=== PATIENT | male | born 1965 | race Two or more races ===

== ENCOUNTER 2025-01-18 04:45 | Inpatient (IN) | payer MEDICARE, OTHER ==
[2025-01-18] VITALS (7 sets, daily range): BP systolic 109–114; BP diastolic 78–83; PULSE 97–106; RESP 18–28; TEMP 97.5–98.7; O2SAT 91–96
[~2025-01-18] VITALS: Ht 170.2 cm; Wt 67.5 kg
[~2025-01-18 04:45] MED LIST: ALLO100T; HYDR-1421
[2025-01-18] MEDS: SODIUM CHLORIDE 0.9% 1,000 ML IV ONE ×3 (05:50→09:45)
[2025-01-18] MEDS: ONDANSETRON HCL 4 MG/2 ML VIAL IV ONE ×2 (05:51→06:53)
[2025-01-18] MEDS: MORPHINE SULFATE 4 MG/ML SYR/VIAL IV ONE (05:55)
--- NOTE | 2025-01-18 06:11 | DVH ---
CHEST RADIOGRAPH Indication: weakness Technique: Single frontal view of the chest was obtained COMPARISON: None FINDINGS: Lines and Tubes: None Lungs: Mild diffuse increased prominence of the pulmonary vasculature. No evidence of focal consolida tion. Pleura: No effusion. No pneumothorax. Cardiomediastinal contours: Unremarkable Bones: Unremarkable IMPRESSION: 1. No acute disease. Mild diffuse increased prominence of the pulmonary vasculature.
[2025-01-18 06:16] LABS: Hematocrit 38.4 % (41.0-53.0); Hemoglobin 13.5 g/dL (13.5-17.5); Mean Corpuscular Hemoglobin 30.1 pg (28.0-32.0); Mean Corpuscular Volume 85.5 fL (80.0-100.0); Nucleated Red Blood Cells % 0.0 %
[2025-01-18 06:27] LABS: Anion Gap 16 (5-15); Chloride 100 mmol/L (98-107); Potassium 4.0 mmol/L (3.5-5.1)
[2025-01-18 06:28] LABS: Calcium 8.4 mg/dL (8.7-10.4); Carbon Dioxide 17 mmol/L (20-31); Sodium 133 mmol/L (136-145)
[2025-01-18 06:33] LABS: BUN/Creatinine Ratio 14.5 (10.0-20.0); Blood Urea Nitrogen 50 mg/dL (9-23); Glucose 149 mg/dL (74-106)
[2025-01-18 06:44] LABS: Lactic Acid w/Reflex 2.5 mmol/L (0.4-2.0)
[2025-01-18] MEDS: HYDROmorphone HCL 2 MG/ML VL/or syr IV ONE (06:55)
[2025-01-18] MEDS: cefTRIAXone 1GM/50ML D5W 50 ML IV ONE (07:02)
--- NOTE | 2025-01-18 07:06 | ECG ---
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
--- NOTE | 2025-01-18 07:10 | ED.PDOC ---
History of Present Illness HPI Comments 60-year-old male who is Cymro-speaking, BIBA with prior medical history of gout and the chief complaint of back pain. Patient reports on having back pain for two days wishes has progressive. Patient states that he has not been able to stand a since last night do from the pain. 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 Denies chills, Trauma, fever, N/V/D, SOB, CP. No other associated symptoms, modifiers, recent injuries or sick contacts present at this time. Chief Complaint: Back Pain Time Seen by MD: 06:45 Primary Care Provider: NONE Reviewed Notes: Nurses Notes, Medications, Allergies Allergies: Coded Allergies: NO KNOWN ALLERGIES (Unverified , 07/27/11) Home Meds Reported Medications Hydrocodone-Acetaminophen (Vicodin) 1 Tab Tab 07/27/11 Allopurinol (Allopurinol) 100 Mg Tab 07/27/11 Information Source: Patient, Emergency Med Personnel, Spouse Mode of Arrival: EMS Severity: Moderate Timing: Days Duration: Since onset, Days Prehospital treatment: None Past Medical History PAST MEDICAL HISTORY: Gout Surgical History: Denies all surgeries Family History Family History: Reviewed,noncontributory to illness, Unknown Social History Smoker: Non-Smoker Alcohol: Denies ETOH Use Drugs: Denies Drug Use Lives In: Home Constitutional: denies: chills, diaphoresis, fatigue, fever, malaise, sweats, weakness, others EENTM: denies: blurred vision, double vision, ear bleeding, ear discharge, ear drainage, ear pain, ear ringing, eye pain, eye redness, hearing loss, mouth pain, mouth swelling, nasal discharge, nose bleeding, nose congestion, nose pain, photophobia, tearing, throat pain, throat swelling, voice changes, others Respiratory: denies: cough, hemoptysis, orthopnea, SOB at rest, shortness of breath, SOB with excertion, stridor, wheezing, others Cardiovascular: denies: chest pain, dizzy spells, diaphoresis, Dyspnea on exertion, edema, irregular heart beat, left arm pain, lightheadedness, palpitations, PND, syncope, others Gastrointestinal: denies: abdomen distended, abdominal pain, blood streaked bowels, constipated, diarrhea, dysphagia, difficulty swallowing, hematemesis, melena, nausea, poor appetite, poor fluid intake, rectal bleeding, rectal pain, vomiting, others Genitourinary: denies: burning, dysuria, flank pain, frequency, hematuria, incontinence, penile discharge, penile sore, pain, testicle pain, testicle swelling, urgency, others Neurological: denies: dizziness, fainting, headache, left sided numbness, left sided weakness, numbness, paresthesia, pre-existing deficit, right sided numbness, right sided weakness, seizure, speech problems, tingling, tremors, weakness, others Musculoskeletal: reports: back pain; denies: gout, joint pain, joint swelling, muscle pain, muscle stiffness, neck pain, others Integumetry: denies: bruises, change in color, change in hair/nails, dryness, laceration, lesions, lumps, rash, wounds, others Allergic/Immunocompromised: denies: Difficulty Healing, Frequent Infections, Hives, Itching, others Hematologic/Lymphatic: denies: anemia, blood clots, easy bleeding, easy bruising, swollen glands, others Endocrine: denies: excessive hunger, excessive sweating, excessive thirst, excessive urination, flushing, intolerance to cold, intolerance to heat, unexplained weight gain, unexplained weight loss, others Psychiatric: denies: anxiety, bipolar disorder, depression, hopeless, panic disorder, schizophrenia, sleepless, suicidal, others All Other Systems: Reviewed and Negative Physical Exam General Appearance: Moderate Distress, Normal HEENT: Normal ENT Inspection, Pharynx Normal, TMs Normal Neck: Full Range of Motion, Non-Tender, Normal, Normal Inspection Respiratory: Chest Non-Tender, Lungs Clear, No Accessory Muscle Use, No Respiratory Distress, Normal Breath Sounds Cardiovascular: No Edema, No JVD, No Murmur, No Gallop, Normal Peripheral Pulses, Regular Rate/Rhythm Breast Exam: Deferred Gastrointestinal: No Organomegaly, Non Tender, No Pulsatile Mass, Normal Bowel Sounds, Soft Genitalia: Deferred Pelvic: Deferred Rectal: Deferred Extremities: No calf tenderness, Normal capillary refill, Normal inspection, Normal range of motion, Non-tender, No pedal edema Musculoskeletal : Apperance: Normal Neurologic: Alert, 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 Was a procedure done?: No Differential Dx Considerations may include: Degenerative disc disease Sepsis X-Ray, Labs, Meds, VS Vital Signs Date Time Temp Pulse Resp B/P (MAP) Pulse Ox O2 Delivery O2 Flow Rate FiO2 01/18/25 06:55 97 25 104/74 01/18/25 06:30 101 27 111/66 (81) 95 01/18/25 06:25 100 23 111/66 01/18/25 05:55 100 37 108/54 01/18/25 05:15 100 28 92 Room Air* 0 21 01/18/25 05:10 98.9 100 28 101/64 (76) 92 98.9 01/18/25 04:53 98 01/18/25 04:50 98.8 100 24 120/52 (74) 100 98.8 Lab Test 01/18/25 05:55 Range/Units White Blood Count 6.0 4.4-10.8 10^3/uL Red Blood Count 4.49 L 4.5-5.90 10^6/uL Hemoglobin 13.5 13.5-17.5 g/dL Hematocrit 38.4 L 41.0-53.0 % Mean Corpuscular Volume 85.5 80.0-100.0 fL Mean Corpuscular Hemoglobin 30.1 28.0-32.0 pg Mean Corpuscular Hemoglobin Concent 35.1 32.0-36.0 g/dL Red Cell Distribution Width 14.2 11.8-14.3 % Platelet Count 53 L 140-450 10^3/uL Mean Platelet Volume 8.7 6.9-10.8 fL Neutrophils (%) (Auto) 95.4 H 37.0-80.0 % Lymphocytes (%) (Auto) 2.5 L 10.0-50.0 % Monocytes (%) (Auto) 1.4 0.0-12.0 % Eosinophils (%) (Auto) 0.4 0.0-7.0 % Basophils (%) (Auto) 0.3 0.0-2.0 % Neutrophils # (Auto) 5.7 1.6-8.6 10 ^3/uL Lymphocytes # (Auto) 0.1 L 0.4-5.4 10 ^3/uL Monocytes # (Auto) 0.1 0-1.3 10 ^3/uL Eosinophils # (Auto) 0 0-0.8 10 ^3/uL Basophils # (Auto) 0 0-0.2 10 ^3/uL Nucleated Red Blood Cells 0.0 % Sodium Level 133 L 136-145 mmol/L Potassium Level 4.0 3.5-5.1 mmol/L Chloride Level 100 98-107 mmol/L Carbon Dioxide Level 17 L 20-31 mmol/L Anion Gap 16 H 5-15 Blood Urea Nitrogen 50 H 9-23 mg/dL Creatinine 3.46 H 0.700-1.30 mg/dL Glomerular Filtration Rate Calc 19 >90 mL/min BUN/Creatinine Ratio 14.5 10.0-20.0 Serum Glucose 149 H 74-106 mg/dL Lactic Acid Level 2.5 *H 0.4-2.0 mmol/L Calcium Level 8.4 L 8.7-10.4 mg/dL Troponin I High Sensitivity 26 </=54 ng/L B-Type Natriuretic Peptide 457.18 0-100 pg/mL Current Medications Medications (Trade) Dose Ordered Sig/Natividad Route Start Time Stop Time Status Last Admin Sodium Chloride 1,000 ml @ 1,000 mls/hr Q1H ONCE IV 01/18/25 06:00 01/18/25 06:59 DC 01/18/25 05:50 Morphine Sulfate 4 mg ONCE ONCE IV 01/18/25 06:00 01/18/25 06:01 DC 01/18/25 05:55 Ondansetron HCl (Zofran) 4 mg ONCE ONCE IV 01/18/25 06:00 01/18/25 06:01 DC 01/18/25 05:51 Ondansetron HCl (Zofran) 4 mg ONCE ONCE IV 01/18/25 06:45 01/18/25 06:46 DC 01/18/25 06:53 Hydromorphone HCl (Dilaudid Injection) 1 mg ONCE ONCE IV 01/18/25 06:45 01/18/25 06:46 DC 01/18/25 06:55 Ceftriaxone Sodium 50 ml @ 100 mls/hr ONCE ONCE IV 01/18/25 07:00 01/18/25 07:29 01/18/25 07:02 Sodium Chloride 1,000 ml @ 1,000 mls/hr Q1H ONCE IV 01/18/25 07:00 01/18/25 07:59 01/18/25 07:01 Patient alert. Complaining of back pain. Able to move his extremities. He is obese. BNP elevated. Lactic acid elevated. Kidney function elevated pain Does not take care himself. Possible sepsis. Possible CHF. Establish intravenous access. Was given fluids. Was given Rocephin. Was given Flagyl. Pain control. He is able to control his bowel movement. Explained to the patient. Continue monitoring. Time of 1ST Reevaluation: 07:15 Reevaluation 1ST: Unchanged Patient Education/Counseling: Diagnosis, Treatment, Prognosis Family Education/Counseling: Diagnosis, Treatment, Prognosis SEPSIS Sepsis Screen Date sepsis recognized/suspect: Jan 18, 2025 Time Sepsis recognized/suspect: 514 Recent Procedure: No On Antibiotic Therapy: No Respiratory Rate >20: Yes Heart Rate >90: Yes Temp<36 C (96.8 F) or >38.3 C: No SBP <90 or MAP <65 mmHG: No New Acute Mental Status Change: No Is the patient on CPAP, BIPAP,: No Physician Orders Chest Portable (01/18/25 05:44) Troponin-I Hs (01/18/25 08:44) Electrocardigram (01/18/25 06:44) Electrocardigram (01/18/25 08:44) Blood Culture (01/18/25 06:08) Urinalysis (01/18/25 06:08) Chst Ab Pel Wo Con-No Iv/Oral (01/18/25 06:02) Ceftriaxone 1gm/50ml D5w (Rocephin) (01/18/25 07:00) Metronidazole 500mg/100ml (Flagyl 500mg/ (01/18/25 07:00) Sodium Chloride 0.9% (01/18/25 07:00) Sodium Chloride 0.9% (01/18/25 07:00) Vital Signs Date Time Temp Pulse Resp B/P (MAP) Pulse Ox O2 Delivery O2 Flow Rate FiO2 01/18/25 06:55 97 25 104/74 01/18/25 06:30 101 27 111/66 (81) 95 01/18/25 06:25 100 23 111/66 01/18/25 05:55 100 37 108/54 01/18/25 05:15 100 28 92 Room Air* 0 21 01/18/25 05:10 98.9 100 28 101/64 (76) 92 98.9 01/18/25 04:53 98 01/18/25 04:50 98.8 100 24 120/52 (74) 100 98.8 Laboratory Tests Test 01/18/25 05:55 Lactic Acid Level 2.5 mmol/L (0.4-2.0) *H White Blood Count 6.0 10^3/uL (4.4-10.8) Medications Medications Dose Ordered Sig/Natividad Route Start Time Stop Time Status Last Admin Dose Admin Ceftriaxone Sodium 50 ml @ 100 mls/hr ONCE ONCE IV 01/18/25 07:00 01/18/25 07:29 01/18/25 07:02 Hydromorphone HCl 1 mg ONCE ONCE IV 01/18/25 06:45 01/18/25 06:46 DC 01/18/25 06:55 Morphine Sulfate 4 mg ONCE ONCE IV 01/18/25 06:00 01/18/25 06:01 DC 01/18/25 05:55 Ondansetron HCl 4 mg ONCE ONCE IV 01/18/25 06:00 01/18/25 06:01 DC 01/18/25 05:51 Ondansetron HCl 4 mg ONCE ONCE IV 01/18/25 06:45 01/18/25 06:46 DC 01/18/25 06:53 Sodium Chloride 1,000 ml @ 1,000 mls/hr Q1H ONCE IV 01/18/25 06:00 01/18/25 06:59 DC 01/18/25 05:50 Sodium Chloride 1,000 ml @ 1,000 mls/hr Q1H ONCE IV 01/18/25 07:00 01/18/25 07:59 01/18/25 07:01 Departure 1 Departure Time of Disposition: 07:19 Impression: Primary Impression: Sepsis, unspecified organism Qualified Codes: A41.9 - Sepsis, unspecified organism Additional Impressions: Acute tubular necrosis CHF (congestive heart failure) Qualified Codes: I50.43 - Acute on chronic combined systolic (congestive) and diastolic (congestive) heart failure Disposition: ADMITTED INPATIENT Admit to: Med Surg Condition: Guarded Critical Care Note Critical Care Time?: Yes (90 min-critical care time only) Critical care comment: Continue monitoring Stability Stability form required: No Heart Score Heart Score: Heart Score Response (Comments) Value History Slightly Suspicious 0 EKG Normal 0 Age 45-64 1 Risk Factors 1 or 2 risk factors 1 Troponin Normal limit 0 Total 2 I personally scribed for ALBERTO LEHMAN MD ([email or web address]) on 01/18/25 at 07:10. Electronically submitted by Gerson Correa ([email or web address]). ALBERTO LEHMAN MD Jan 18, 2025 07:10
--- NOTE | 2025-01-18 07:18 | DVH ---
EXAM: CT CHST AB PEL WO CON-NO IV/ORAL HISTORY: chest and abdominal pain COMPARISON: None TECHNIQUE: Helical CT images of the chest, abdomen, and pelvis were performed without IV contrast. Sa gittal and coronal reformatted images were obtained. This CT exam was performed using one or more of the following dose reduction techniques: Automated exposure control, adjustment of the mA and/or kv a ccording to patient size, or the use of iterative reconstruction techniques. Radiation Dose Information: CT Dose: CTDI volume is 17.77 mGy. Dose-length product is 1309.57 mGy*cm FINDINGS: CT chest: There is paraseptal and centrilobular emphysema of the lung apices. There are trace bilater al pleural effusions and mild bilateral lower lobe dependent atelectasis. No pneumothorax, pulmonary edema, pleural effusions, or suspicious lung nodules. The heart is enlarged. There are coronary leif ry calcifications. No thoracic aortic aneurysm. No suspicious mediastinal or axillary adenopathy. The re is an ill-defined right thyroid nodule (image 13, series 2). No fractures are identified about the bony thorax. CT abdomen: The liver is diffusely fatty density and measures 20 cm longitudinal. The spleen measures 12 cm longitudinal. The noncontrast gallbladder, pancreas, kidneys, and adrenal glands are unremarka ble. No abdominal aortic aneurysm. CT pelvis: No abnormal bowel dilatation, free air, or free fluid. There is fecal retention throughout the colon. There are descending and sigmoid colon diverticula without evidence of acute diverticuli tis. The appendix and urinary bladder are unremarkable. The prostate is upper limits of normal in siz e. There are bilateral fatty inguinal indirect hernias, larger on the left. Both hernias extend int o the scrotum. No fractures are identified about the lumbar spine, pelvis, or hips. There is severe l umbar degenerative disc disease and facet arthropathy with multilevel significant neural foraminal st enosis bilaterally. There is mild osteoarthritis of the hips. IMPRESSION: 1. Mild emphysema. 2. Trace bilateral pleural effusions and mild bilateral lower lobe dependent atelectasis. 3. Cardiomegaly and coronary artery disease. 4. Right thyroid nodule. Recommend follow-up outpatient thyroid ultrasound for better characterizati on. 5. Hepatomegaly, hepatic steatosis, and borderline splenomegaly. 6. Fecal retention throughout the colon suggestive of constipation. 7. Descending and sigmoid colon diverticulosis without evidence of acute diverticulitis. 8. Bilateral fatty inguinal indirect hernias extend into the scrotum, larger on the left. 9. Severe lumbar degenerative disc disease and facet arthropathy with multilevel significant neural f oraminal stenosis bilaterally. Recommend follow-up outpatient noncontrast lumbar spine MRI for gallo r characterization, especially if the patient complains of lower extremity radicular symptoms. 10. No evidence of bowel obstruction, acute appendicitis, or other acute process in the abdomen or pe lvis.
[2025-01-18] MEDS: DOCUSATE SOD 100 MG CAP PO ONE (07:50)
[2025-01-18] MEDS: FUROSEMIDE 40 MG/4 ML VIAL IV ONE (07:50)
[2025-01-18 08:17] LABS: Urine Protein, UAD 2+ (Negative)
[2025-01-18] MEDS ORDERED: DOCUSATE SOD 100 MG CAP PO PRN (10:30)
--- NOTE | 2025-01-18 10:53 | DVHHP2 ---
History of Present Illness Reason for Visit: Back pain History of Present Illness Ron Arriaga is a 60-year-old male with past medical history of gout, takes no medications, and has not been to a physician in over 3 years. He came to the hospital today due to severe back pain. Patient states the pain started about 2 days ago, continued to worsen prompting him to come to the hospital. Ct showed: thyroid nodule, hepatic steatosis, fecal retention, diverticulosis, emphysema, trace bilateral pleural effusions, bilateral inguinal hernias, and severe lumbar degenerative disc disease. Will order thyroid panel, thyroid ultrasound, and renal ultrasound due to acute kidney injury. Will advise patient to follow up as an outpatient regarding lumbar DDD, and inguinal hernias. Rheumatologic: Gout Past Surgical History: None Smoke: <1 pack per day ALCOHOL: heavy (6-8 beers/day) Drugs: None Lives: with Family Domestic Violence: Neg Review of Systems Constitutional: No: Fever, Chills, Sweats, Weakness, Malaise, Other Eyes: No: Pain, Vision change, Conjunctivae inflammation, Eyelid inflammation, Other, Redness ENT: No: Ear pain, Ear discharge, Nose pain, Nose discharge, Nose congestion, Mouth pain, Mouth swelling, Throat pain, Throat swelling, Other Respiratory: No: Cough, Dry, Shortness of breath, SOB with excertion, Wheezing, Hemoptysis, Pleuritic Pain, Sputum, Wheezing, Other Cardiovascular: No: Chest Pain, Palpitations, Orthopnea, Paroxysmal Noc. Dy spnea, Edema, Lt Headedness, Other Gastrointestinal: No: Nausea, Vomiting, Abdominal Pain, Diarrhea, Constipation, Melena, Hematochezia, Other Genitourinary: No Dysuria, No Frequency, No Incontinence, No Hematuria, No Retention, No Other Musculoskeletal: back pain (low back); No: other, neck pain, shoulder pain, arm pain, hand pain, leg pain, foot pain Skin: No: Rash, Lesions, Jaundice, Bruising, Other Neurological: No: Weakness, Numbness, Incoordination, Change in speech, Confusion, Seizures, Other Allergies: Coded Allergies: NO KNOWN ALLERGIES (Unverified , 07/27/11) Exam Vital Signs Vital Signs Date Time Temp Pulse Resp B/P (MAP) Pulse Ox O2 Delivery O2 Flow Rate FiO2 01/18/25 08:00 104 18 124/77 01/18/25 07:30 93 Nasal Cannula* 2 28 01/18/25 07:30 98.6 98.6 General Appearance: Alert, Oriented X3, Cooperative, mild distress HEENT: Atraumatic, PERRLA Respiratory: Clear to auscultation, Normal air movement Cardiovascular: Normal S1, Normal S2, Other (ST) Abdominal: Normal bowel sounds, Soft, No tenderness Extremities: No clubbing, No cyanosis Skin: No rashes, No breakdown, No significant lesion Neuro: Normal gait, Normal speech, Strength at 5/5 X4 ext Psych/Mental Status: Mental status NL, Mood NL Labs/Xrays Labs Test 01/18/25 08:36 01/18/25 06:08 01/18/25 05:55 Range/Units Lactic Acid Level 1.7 0.4-2.0 mmol/L Troponin I High Sensitivity 30 </=54 ng/L Urine Color Yellow Yellow Urine Clarity Turbid H Clear Urine pH 6.0 5.0-9.0 Urine Specific [place] 1.017 1.001-1.035 Urine Protein 2+ H Negative Urine Ketones Negative Negative Urine Blood 2+ H Negative /uL Urine Nitrite Negative Negative Urine Bilirubin 1+ Negative Urine Urobilinogen 3 H Negative mg/dL Urine Leukocyte Esterase Negative Negative /uL Urine RBC 3 0 - 3 /hpf Urine Microscopic WBC 4 H 0-3 /HPF Urine Squamous Epithelial Cells None seen <5 /hpf Urine Bacteria None seen None Seen /hpf Urine Sperm Present None Seen /hpf Urine Glucose Normal Normal mg/dL White Blood Count 6.0 4.4-10.8 10^3/uL Red Blood Count 4.49 L 4.5-5.90 10^6/uL Hemoglobin 13.5 13.5-17.5 g/dL Hematocrit 38.4 L 41.0-53.0 % Mean Corpuscular Volume 85.5 80.0-100.0 fL Mean Corpuscular Hemoglobin 30.1 28.0-32.0 pg Mean Corpuscular Hemoglobin Concent 35.1 32.0-36.0 g/dL Red Cell Distribution Width 14.2 11.8-14.3 % Platelet Count 53 L 140-450 10^3/uL Mean Platelet Volume 8.7 6.9-10.8 fL Neutrophils (%) (Auto) 95.4 H 37.0-80.0 % Lymphocytes (%) (Auto) 2.5 L 10.0-50.0 % Monocytes (%) (Auto) 1.4 0.0-12.0 % Eosinophils (%) (Auto) 0.4 0.0-7.0 % Basophils (%) (Auto) 0.3 0.0-2.0 % Neutrophils # (Auto) 5.7 1.6-8.6 10 ^3/uL Lymphocytes # (Auto) 0.1 L 0.4-5.4 10 ^3/uL Monocytes # (Auto) 0.1 0-1.3 10 ^3/uL Eosinophils # (Auto) 0 0-0.8 10 ^3/uL Basophils # (Auto) 0 0-0.2 10 ^3/uL Nucleated Red Blood Cells 0.0 % Sodium Level 133 L 136-145 mmol/L Potassium Level 4.0 3.5-5.1 mmol/L Chloride Level 100 98-107 mmol/L Carbon Dioxide Level 17 L 20-31 mmol/L Anion Gap 16 H 5-15 Blood Urea Nitrogen 50 H 9-23 mg/dL Creatinine 3.46 H 0.700-1.30 mg/dL Glomerular Filtration Rate Calc 19 >90 mL/min BUN/Creatinine Ratio 14.5 10.0-20.0 Serum Glucose 149 H 74-106 mg/dL Calcium Level 8.4 L 8.7-10.4 mg/dL B-Type Natriuretic Peptide 457.18 0-100 pg/mL CHEST RADIOGRAPH FINDINGS: Lines and Tubes: None Lungs: Mild diffuse increased prominence of the pulmonary vasculature. No evidence of focal consolidation. Pleura: No effusion. No pneumothorax. Cardiomediastinal contours: Unremarkable Bones: Unremarkable IMPRESSION: 1. No acute disease. Mild diffuse increased prominence of the pulmonary vasculature. EXAM: CT CHEST AB PEL WO CON-NO IV/ORAL FINDINGS: CT chest: There is paraseptal and centrilobular emphysema of the lung apices. There are trace bilateral pleural effusions and mild bilateral lower lobe dependent atelectasis. No pneumothorax, pulmonary edema, pleural effusions, or suspicious lung nodules. The heart is enlarged. There are coronary artery calcifications. No thoracic aortic aneurysm. No suspicious mediastinal or axillary adenopathy. There is an ill-defined right thyroid nodule (image 13, series 2). No fractures are identified about the bony thorax. CT abdomen: The liver is diffusely fatty density and measures 20 cm longitudinal. The spleen measures 12 cm longitudinal. The noncontrast gallbladder, pancreas, kidneys, and adrenal glands are unremarkable. No abdominal aortic aneurysm. CT pelvis: No abnormal bowel dilatation, free air, or free fluid. There is fecal retention throughout the colon. There are descending and sigmoid colon diverticula without evidence of acute diverticulitis. The appendix and urinary bladder are unremarkable. The prostate is upper limits of normal in size. There are bilateral fatty inguinal indirect hernias, larger on the left. Both hernias extend into the scrotum. No fractures are identified about the lumbar spine, pelvis, or hips. There is severe lumbar degenerative disc disease and facet arthropathy with multilevel significant neural foraminal stenosis bilaterally. There is mild osteoarthritis of the hips. IMPRESSION: 1. Mild emphysema. 2. Trace bilateral pleural effusions and mild bilateral lower lobe dependent atelectasis. 3. Cardiomegaly and coronary artery disease. 4. Right thyroid nodule. Recommend follow-up outpatient thyroid ultrasound for better characterization. 5. Hepatomegaly, hepatic steatosis, and borderline splenomegaly. 6. Fecal retention throughout the colon suggestive of constipation. 7. Descending and sigmoid colon diverticulosis without evidence of acute diverticulitis. 8. Bilateral fatty inguinal indirect hernias extend into the scrotum, larger on the left. 9. Severe lumbar degenerative disc disease and facet arthropathy with multilevel significant neural foraminal stenosis bilaterally. Recommend follow-up outpatient noncontrast lumbar spine MRI for better characterization, especially if the patient complains of lower extremity radicular symptoms. 10. No evidence of bowel obstruction, acute appendicitis, or other acute process in the abdomen or pelvis. SEPSIS Sepsis Screen Date sepsis recognized/suspect: Jan 18, 2025 Time Sepsis recognized/suspect: 729 Recent Procedure: No On Antibiotic Therapy: Yes Respiratory Rate >20: Yes Heart Rate >90: Yes Temp<36 C (96.8 F) or >38.3 C: No SBP <90 or MAP <65 mmHG: No New Acute Mental Status Change: No Is the patient on CPAP, BIPAP,: No IV fluid challenge completed?: Yes Physician Orders Chest Portable (01/18/25 05:44) Electrocardigram (01/18/25 06:44) Electrocardigram (01/18/25 08:44) Blood Culture (01/18/25 06:08) Chst Ab Pel Wo Con-No Iv/Oral (01/18/25 06:02) Sodium Chloride 0.9% (01/18/25 07:00) Insert/Manage Urinary Catheter QSHIFT (01/18/25 07:59) Vital Signs Date Time Temp Pulse Resp B/P (MAP) Pulse Ox O2 Delivery O2 Flow Rate FiO2 01/18/25 08:00 104 18 124/77 01/18/25 07:50 117/81 01/18/25 07:30 101 22 93 Nasal Cannula* 2 28 01/18/25 07:30 98.6 101 22 117/81 (93) 93 98.6 01/18/25 06:55 97 25 104/74 01/18/25 06:30 101 27 111/66 (81) 95 01/18/25 06:25 100 23 111/66 01/18/25 05:55 100 37 108/54 01/18/25 05:15 100 28 92 Room Air* 0 21 01/18/25 05:10 98.9 100 28 101/64 (76) 92 98.9 01/18/25 04:53 98 01/18/25 04:50 98.8 100 24 120/52 (74) 100 98.8 Laboratory Tests Test 01/18/25 05:55 01/18/25 08:36 Lactic Acid Level 2.5 mmol/L (0.4-2.0) *H 1.7 mmol/L (0.4-2.0) White Blood Count 6.0 10^3/uL (4.4-10.8) Medications Medications Dose Ordered Sig/Natividad Route Start Time Stop Time Status Last Admin Dose Admin Ceftriaxone Sodium 50 ml @ 100 mls/hr ONCE ONCE IV 01/18/25 07:00 01/18/25 07:29 DC 01/18/25 07:02 100 MLS/HR Docusate Sodium 100 mg ONCE ONCE PO 01/18/25 07:45 01/18/25 07:46 DC 01/18/25 07:50 100 MG Furosemide 40 mg ONCE ONCE IV 01/18/25 07:30 01/18/25 07:31 DC 01/18/25 07:50 40 MG Hydromorphone HCl 1 mg ONCE ONCE IV 01/18/25 06:45 01/18/25 06:46 DC 01/18/25 06:55 1 MG Metronidazole 100 ml @ 100 mls/hr ONCE ONCE IV 01/18/25 07:00 01/18/25 07:59 DC 01/18/25 07:50 100 MLS/HR Morphine Sulfate 4 mg ONCE ONCE IV 01/18/25 06:00 01/18/25 06:01 VA 01/18/25 05:55 4 MG Ondansetron HCl 4 mg ONCE ONCE IV 01/18/25 06:00 01/18/25 06:01 VA 01/18/25 05:51 4 MG Ondansetron HCl 4 mg ONCE ONCE IV 01/18/25 06:45 01/18/25 06:46 VA 01/18/25 06:53 4 MG Sodium Chloride 1,000 ml @ 1,000 mls/hr Q1H ONCE IV 01/18/25 06:00 01/18/25 06:59 DC 01/18/25 05:50 1,000 MLS/HR Sodium Chloride 1,000 ml @ 1,000 mls/hr Q1H ONCE IV 01/18/25 07:00 01/18/25 07:59 DC 01/18/25 07:01 1,000 MLS/HR Assessment/Plan Assessment/Plan Assessment: Sepsis, unspecified organism, Complicated UTI, Possible urosepsis, Possible Pyelonephritis, Acute kidney injury, Thyroid nodule, ETOH dependance, Constipation, Severe DDD, Plan: Admit to Med-Surg, IV hydration, IV antibiotics, Thyroid ultrasound, Renal ultrasound, Consider nephrology consult if renal function does not improve, TSH, T3, T4, A1c, Librium tapering dose, Supplemental vitamins, PRN Ativan for ETOH withdrawal, Plan discussed with: Patient Date of Service: Jan 18, 2025 Billing Provider: VICKIE ARAUJO Common Visit Codes: [id number] INP/OBS CARE (MOD) VICKIE ARAUJO Jan 18, 2025 10:53
[2025-01-18] MEDS ORDERED: LACTULOSE 20Gm/30ML SOLN PO PRN (11:00)
--- NOTE | 2025-01-18 12:22 | DVH ---
INDICATION: Acute kidney injury TECHNIQUE: Multiple real-time sonographic images of the kidneys and bladder were obtained. COMPARISON: None FINDINGS: RIGHT kidney measures 10.3 cm in length. No hydronephrosis. LEFT kidney measures 10.5 cm in length. No hydronephrosis. Bates catheter in the urinary bladder. IMPRESSION: 1. Unremarkable examination.
--- NOTE | 2025-01-18 12:29 | DVH ---
EXAM: US THYROID HISTORY: nodule 60-year-old male with right thyroid nodule seen on CT scan of the chest. COMPARISON: CT scan of the chest from earlier same day. TECHNIQUE: Ultrasound examination of the thyroid was performed. FINDINGS: The right lobe of the thyroid measures 4.9 x 2.2 x 2.7 cm. The left lobe of the thyroid measures 4.2 x 1.6 x 1.3 cm. The thyroid isthmus measures 5.1 mm AP. There is a heterogeneous isoechoic solid n odule in the right mid thyroid with smooth margins, wider than tall on all images, measuring up to 3. 2 cm greatest dimension. No nodules are identified in the left lobe of the thyroid. No suspicious c alcifications or abnormal color Doppler blood flow. IMPRESSION: Right thyroid 3.2 cm solid nodule is a TI-RADS 3 lesion, mildly suspicious. As this measures greater than 2.5 cm, patient ultrasound-guided FNA is recommended. Similar to thyroid ultrasound examination s in general, thyroid FNA should be performed on an outpatient nonemergent basis and should not be pe rformed on an inpatient basis.
[2025-01-18] MEDS: FOLIC ACID 1 MG TAB PO ONE (13:47)
[2025-01-18] MEDS: MULTIPLE VITAMIN TAB PO ONE (13:47)
[2025-01-18] MEDS: THIAMINE HCL 100 MG TAB PO ONE (13:47)
[2025-01-18] MEDS: HYDROcodone-ACET 5/325MG TAB PO PRN (13:48)
[2025-01-18 14:28] LABS: Free T3 2.53 pg/mL (2.3-4.2); Free T4 (Free Thyroxine) 1.17 ng/dL (0.89-1.76)
[2025-01-18] MEDS: ONDANSETRON HCL 4 MG/2 ML VIAL IV PRN (15:44)
[2025-01-18] MEDS: MORPHINE SULFATE INJ 2 MG/ml SYRG IV PRN (15:45)
[2025-01-18] MEDS: LORazepam 2MG/ML-1ML VIAL IV PRN (20:15)
[2025-01-19] VITALS (68 sets, daily range): BP systolic 71–154; BP diastolic 21–98; PULSE 90–156; RESP 10–38; TEMP 98.5–100.8; O2SAT 87–100
[2025-01-19 06:44] LABS: Hemoglobin 14.8 g/dL (13.5-17.5)
[2025-01-19 06:48] LABS: Hematocrit 43.2 % (41.0-53.0); Mean Corpuscular Hemoglobin 30.2 pg (28.0-32.0); Mean Corpuscular Volume 88.0 fL (80.0-100.0); Nucleated Red Blood Cells % 0.3 %
[2025-01-19 06:58] LABS: Anion Gap 16 (5-15); BUN/Creatinine Ratio 13.5 (10.0-20.0); Calcium 8.8 mg/dL (8.7-10.4); Potassium 4.7 mmol/L (3.5-5.1)
[2025-01-19 06:59] LABS: Alanine Aminotransferase 96 U/L (7-40); Alkaline Phosphatase 255 U/L (46-116); Blood Urea Nitrogen 65 mg/dL (9-23); Carbon Dioxide 19 mmol/L (20-31); Chloride 98 mmol/L (98-107); Glucose 156 mg/dL (74-106); Sodium 133 mmol/L (136-145); Total Protein 6.9 g/dL (5.7-8.2)
[2025-01-19 07:00] LABS: Albumin 4.3 g/dL (3.2-4.8)
[2025-01-19 07:01] LABS: Bilirubin, Total 2.3 mg/dL (0.2-1.0)
[2025-01-19] MEDS: FUROSEMIDE 40 MG/4 ML VIAL ONE (08:02)
--- NOTE | 2025-01-19 08:15 | CODING ---
Date of Service: Jan 19, 2025 Billing Provider: KALLI ARREGUIN Common Visit Codes: [id number] INP/OBS CARE (HIGH) KALLI ARREGUIN Jan 19, 2025 08:15
[2025-01-19 08:17] LABS: Base Excess -9.3 mmol/L (-2.0-3.0)
[2025-01-19] MEDS: FUROSEMIDE 40 MG/4 ML VIAL IV ONE (08:22)
--- NOTE | 2025-01-19 08:23 | DVH ---
CHEST RADIOGRAPH Indication: desaturation Technique: Single frontal view of the chest was obtained COMPARISON: XY CHEST PORTABLE on DOS: 01/18/25 FINDINGS: Lines and Tubes: None Lungs: Increased interstitial prominence Pleura: No effusion. No pneumothorax. Cardiomediastinal contours: Cardiomegaly Bones: Unremarkable IMPRESSION: Pulmonary vascular congestion or viral pneumonia, not significantly changed.
[2025-01-19] MEDS: IPRATROPIUM BROM 0.5 MG/2.5ML INH SOL NEB ONE (08:27)
[2025-01-19] MEDS: LEVALBUTEROL HCL 1.25 MG/3 ML NEB ONE (08:28)
[2025-01-19] MEDS: ALBUTEROL SULF 2.5 MG/0.5ML(0.5%) NEB SOLN ONE (08:29)
[2025-01-19] MEDS: IPRATROPIUM BROM 0.5 MG/2.5ML INH SOL ONE (08:29)
[2025-01-19 08:43] LABS: Hematocrit 41.0 % (41.0-53.0); Hemoglobin 14.0 g/dL (13.5-17.5); Mean Corpuscular Hemoglobin 29.7 pg (28.0-32.0); Mean Corpuscular Volume 86.9 fL (80.0-100.0); Nucleated Red Blood Cells % 0.2 %
[2025-01-19] MEDS: CEFEPIME 1GM/ 50ML 50 ML IV SCH (09:08)
[2025-01-19] MEDS: FOLIC ACID 1 MG TAB PO SCH (09:08)
[2025-01-19] MEDS: THIAMINE HCL 100 MG TAB PO SCH (09:09)
[2025-01-19] MEDS: MULTIPLE VITAMIN TAB PO SCH (09:09)
[2025-01-19 09:17] LABS: Alanine Aminotransferase 88 U/L (7-40); Albumin 3.7 g/dL (3.2-4.8); Alkaline Phosphatase 253 U/L (46-116); Anion Gap 19 (5-15); BUN/Creatinine Ratio 14.8 (10.0-20.0); Blood Urea Nitrogen 78 mg/dL (9-23); Carbon Dioxide 18 mmol/L (20-31); Chloride 101 mmol/L (98-107); Glucose 144 mg/dL (74-106); Potassium 4.1 mmol/L (3.5-5.1); Sodium 138 mmol/L (136-145); Total Protein 5.7 g/dL (5.7-8.2)
[2025-01-19 09:18] LABS: Bilirubin, Total 2.5 mg/dL (0.2-1.0); Calcium 8.0 mg/dL (8.7-10.4)
[2025-01-19] MEDS: AMIODARONE BOLUS KIT 100 ML IV ONE ×2 (09:45→09:50)
[2025-01-19] MEDS: HYDROMORPHONE HCL 1 MG/ML INJ ONE (09:47)
[2025-01-19] MEDS: AMIODARONE 360mg/200mL PREMIX 200 ML IV ONE ×2 (09:50→10:00)
[2025-01-19] MEDS ORDERED: FUROSEMIDE 40 MG/4 ML VIAL IV ONE (10:00)
[2025-01-19 10:04] LABS: Base Excess -9.3 mmol/L (-2.0-3.0)
[2025-01-19] MEDS: NOREPINEPHRINE 8 MG/250ML KIT 250 ML IV SCH (10:14)
[2025-01-19] MEDS: NOREPINEPHRINE 8 MG/250ML KIT 250 ML IV ONE ×2 (10:14→15:39)
--- NOTE | 2025-01-19 10:20 | DVH ---
Technique: Real-time ultrasound imaging of the abdomen was performed with grayscale and color Doppler . Indication: elevated liver enzymes Comparison: None Findings: Liver measures 20 cm. It is increased in echogenicity and echotexture without focal mass. Portal vei n is normal in caliber and demonstrates normal hepatopetal flow. Gallbladder demonstrates no evidence for cholelithiasis. There is no pericholecystic fluid. The wall thickness is normal. The common bile duct measures 6 mm. No intrahepatic biliary ductal dilatation. Impression: Technically limited examination due to patient cooperation. No identifiable cholelithiasis. Echogenic liver which can be seen with hepatic steatosis, cirrhosis. Hepatomegaly
[2025-01-19] MEDS: fentaNYL Drip 2500mCg/250mlNS 250 ML IV ONE (10:22)
[2025-01-19] MEDS: ETOMIDATE (2MG/ML) 20ML VIAL IV ONE ×2 (10:22→10:27)
[2025-01-19] MEDS: MIDAZOLAM DRIP 50 mg/50mL 50 ML IV ONE (10:22)
[2025-01-19] MEDS: SUCCINYLCHOLINE CHLORIDE 20 MG/ML 10ML VIAL IV ONE ×2 (10:23→10:28)
[2025-01-19] MEDS: MIDAZOLAM DRIP 50 mg/50mL 50 ML IV SCH (10:35)
[2025-01-19] MEDS: fentaNYL Drip 2500mCg/250mlNS 250 ML IV SCH (10:35)
[2025-01-19] MEDS: PROPOFOL 100 ML IV ONE (10:42)
[2025-01-19] MEDS: PROPOFOL 100 ML IV SCH (10:42)
--- NOTE | 2025-01-19 11:02 | RESUS ---
CODE ASSIST ASSESSSMENT Initial Information Code Assist Date: Jan 19, 2025 Code Assist Time: 09:30 Location of Arrest: [facility] Room # 216B Provider Name Dr Chadwick, multiple medical residents Time Notified: 09:30 (at bedside) Crash Cart Opened and Supplies: Yes Situation Staff concerned/worried, speci: HR >130, Change LOC, SBP <90 or 10 from baseli Situation comment: Second code assist this am, first one at [address] Boswell for ALOC. Orders received for lasix 40mg IV once after audible crackles heard/auscultated, cxr, abg, ekg and labs and upgraded to tele during first code assist with VS 93-94% spo2, bp initially wnl with hr 120's sinus tach per reading on ekg. Second code assist called at 0930 for hr 170's. Background Background: Admitted 01/18/25 to med surg floor for sepsis, see EMR for history. Assessment Temperature (Fahrenheit): 99.0 Bedside Blood Glucose: 156 Assessment comment: Awakens to voice cannot hold gaze, diaphoretic, hr 170's. bp 95/78 initially, increased work of breathing Recommendations/Interventions Medications and Responses : Medication Time: 09:38 ADULT Medications Given: adenosine Route of Administration: IV Medication Comment: Adenosine 6mg IV at 0938 after placing defib pads on patient and hooked to crash cart bp 91/50 with hr 172 and spo2 93%. Adenosine 12 mg IV given at 0940 for hr 170's again with bp 89/62. Amiodarone IV bolus with drip ordered and bolus started then Adenosine 12 mg IV was ordered again and given at 0954 with bp 105/88. Post bp 121/98 with hr still in 170's. EKG Rhythm: Atrial Fibrillation, SVT Procedures: Accu check, ABG, CXR Portable, CMP, CBC, EKG, Cardiac Monitoring, Inititate ACLS Protocol, O2 Mask/NC, Cardioversion (x1 at 120joules for hr 172 AT 0941) Outcome Outcome: Transfer to ICU (bed 111) Follow up Report Follow up Report cardioverted again and intubated in icu per icu report Team Members Team Members Dr Chadwick, Multiple residents, Trenton Bergman RNtour production supervisor, Lazaro irving RN, Shira Sunshine RN ICU Charge, Edi SALCEDO MST Resource, Sera Lyman RN ICU Resource, Salvatore RT, Mason retail event assistant student. Ternton Gutiérrez Jan 19, 2025 11:02 PINA CHADWICK MD Jan 19, 2025 14:33
--- NOTE | 2025-01-19 11:09 | DVH ---
EXAM: XY CHEST XRAY 1 VIEW HISTORY: intubation COMPARISON: XY CHEST XRAY 1 VIEW on DOS: 01/19/25, XY CHEST PORTABLE on DOS: 01/18/25 TECHNIQUE: Portable supine AP view of the chest was performed. FINDINGS: The right lung apex is not fully imaged here. There has been interval placement of an endotracheal tu be with its tip 2.2 cm above the vin. There is central interstitial prominence. No pneumothorax or consolidative infiltrates. The heart is enlarged. There is abundant overlying adipose tissue. IMPRESSION: 1. Endotracheal tube in good position. 2. Cardiomegaly and central interstitial prominence suggestive of mild CHF. 3. Obesity.
[2025-01-19] MEDS ORDERED: ADENOSINE 6 MG/2 ML INJ IV ONE (11:56)
[2025-01-19] MEDS ORDERED: IPRATROPIUM BROM 0.5 MG/2.5ML INH SOL NEB SCH (12:00)
[2025-01-19] MEDS ORDERED: LEVALBUTEROL HCL 1.25 MG/3 ML NEB NEB SCH (12:00)
[2025-01-19] MEDS: LEVALBUTEROL HCL 1.25 MG/3 ML NEB NEB ONE (12:00)
[2025-01-19] MEDS: MEROPENEM 500MG IVPB 50 ML IV ONE (13:00)
[2025-01-19] MEDS ORDERED: VANCOMYCIN PER PHARMACY 0 MG IV SCH (13:00)
--- NOTE | 2025-01-19 13:12 | DVHINCON2 ---
Date of service: Jan 19, 2025 Reason for Consultation Acute kidney injury History of Present Illness 60-year-old male unable to obtain history as patient was in distress. Per family at bedside patient has not had medical follow-up in several years. Presents to the hospital complaining of weakness inability to ambulate and swelling in his legs. Family also reports that he has a history of daily alcohol intake including multiple beers per day. Upon evaluation on presentation in the ER patient was noted to have abnormal creatinine level. Upon my evaluation today patient was noted to have a heart rate of 150 and appeared to be in respiratory distress. Rapid response was called and patient has been transferred to the ICU now subsequently intubated. Allergies: Coded Allergies: NO KNOWN ALLERGIES (Unverified , 07/27/11) Home Meds Reported Medications Hydrocodone-Acetaminophen (Vicodin) 1 Tab Tab 07/27/11 Allopurinol (Allopurinol) 100 Mg Tab 07/27/11 Current Medications Current Medications Medications (Trade) Dose Ordered Sig/Natividad Route PRN Reason Start Time Stop Time Status Last Admin Folic Acid 1 mg DAILY PO 01/19/25 10:00 01/19/25 09:08 Multivitamins (Mvi Tab) 1 tab DAILY PO 01/19/25 10:00 Thiamine HCl 100 mg DAILY PO 01/19/25 10:00 Chlordiazepoxide HCl (Librium Capsule) 50 mg Q12HR PO 01/19/25 10:00 01/19/25 22:01 Chlordiazepoxide HCl (Librium Capsule) 25 mg Q12HR PO 01/20/25 10:00 01/20/25 22:01 Chlordiazepoxide HCl (Librium Capsule) 25 mg QAM PO 01/21/25 07:00 01/21/25 07:01 Cefepime HCl 50 ml @ 12.5 mls/hr DAILY IV 01/19/25 10:00 01/19/25 09:08 Levalbuterol HCl (Xopenex Medneb) 1.25 mg Q6HR NEB 01/19/25 12:00 01/19/25 08:20 DC Ipratropium [place] (Atrovent Medneb) 0.5 mg Q6HR NEB 01/19/25 12:00 01/19/25 08:20 DC Propofol 100 ml @ 3.015 mls/ hr Q24H IV 01/19/25 11:15 Midazolam HCl 50 ml @ 1 mls/hr Q24H IV 01/19/25 11:15 Fentanyl Citrate 250 ml @ 2.5 mls/hr Q24H IV 01/19/25 11:15 Family History: FH: HTN (hypertension) G8 MOTHER G8 FATHER FH: cancer of digestive organ G8 MOTHER FH: kidney disease G8 FATHER Review of Systems Critical illness intubated H&P Exam Vital Signs/I&O Vital Sign Date Time Temp Pulse Resp B/P (MAP) Pulse Ox O2 Delivery O2 Flow Rate FiO2 01/19/25 12:07 112 22 85/60 (68) 96 100 01/19/25 10:00 Nasal Cannula* 6 01/19/25 05:20 99.0 99.0 Intake and Output 01/18/25 01/19/25 19:00 07:00 Intake Total 800 ml 100 ml Output Total 1500 ml Balance 800 ml -1400 ml Intake Oral 800 ml 100 ml Output Urine Total 1500 ml Physical Exam Elderly male Appeared in respiratory distress Mrs. Severe tachycardia Abdomen large distended Bilateral pitting edema Crackles bilateral bases Bates catheter Labs/Diagnostic Data Labs/Diagnostic Data Laboratory Tests Test 01/19/25 09:53 01/19/25 08:10 01/19/25 08:05 01/19/25 08:00 Range/Units Blood Gas Specimen Type Arterial Arterial Blood Gas Sample Site Right radial Right radial Blood Gas Patient Temperature 37.0 37.0 Arterial Blood Date Drawn [id number] Arterial Blood pH 7.312 L 7.352 7.350-7.450 Arterial Blood Partial Pressure CO2 31.5 L 26.7 L 35.0-48.0 mmHg Arterial Blood Partial Pressure O2 88.3 79.1 L 83.0-108.0 mmHg Arterial Blood HCO3 15.6 L 14.5 L 21.0-28.0 mmol/L Arterial Blood Oxygen Saturation 95.2 94.4 94.0-98.0 % Arterial Blood Base Excess -9.3 L -9.3 L -2.0-3.0 mmol/L Arterial Blood Oxyhemoglobin 94.0 92.9 L 94.0-98.0 % Arterial Blood Carboxyhemoglobin 0.8 1.1 0.5-1.5 % Arterial Blood Methemoglobin 0.5 0.5 0.0-1.5 % Eligio Test Yes Yes Blood Gas Total Hemoglobin 14.70 14.60 13.5-17.5 g/dL Blood Gas Liter Flow 12.00 Blood Gas Modality Oxymizer Nasal cannula Blood Gas Spontaneous Rate 20 FiO2 % 82.0 44.0 White Blood Count 6.4 4.4-10.8 10^3/uL Red Blood Count 4.72 4.5-5.90 10^6/uL Hemoglobin 14.0 13.5-17.5 g/dL Hematocrit 41.0 41.0-53.0 % Mean Corpuscular Volume 86.9 80.0-100.0 fL Mean Corpuscular Hemoglobin 29.7 28.0-32.0 pg Mean Corpuscular Hemoglobin Concent 34.2 32.0-36.0 g/dL Red Cell Distribution Width 15.2 H 11.8-14.3 % Platelet Count 30 L 140-450 10^3/uL Mean Platelet Volume 9.6 6.9-10.8 fL Neutrophils (%) (Auto) 91.7 H 37.0-80.0 % Lymphocytes (%) (Auto) 1.9 L 10.0-50.0 % Monocytes (%) (Auto) 2.2 0.0-12.0 % Eosinophils (%) (Auto) 4.0 0.0-7.0 % Basophils (%) (Auto) 0.2 0.0-2.0 % Neutrophils # (Auto) 5.9 1.6-8.6 10 ^3/uL Lymphocytes # (Auto) 0.1 L 0.4-5.4 10 ^3/uL Monocytes # (Auto) 0.1 0-1.3 10 ^3/uL Eosinophils # (Auto) 0.3 0-0.8 10 ^3/uL Basophils # (Auto) 0 0-0.2 10 ^3/uL Nucleated Red Blood Cells 0.2 % Platelet Estimate Decreased Sodium Level 138 # 136-145 mmol/L Potassium Level 4.1 3.5-5.1 mmol/L Chloride Level 101 98-107 mmol/L Carbon Dioxide Level 18 L 20-31 mmol/L Anion Gap 19 H 5-15 Blood Urea Nitrogen 78 #H 9-23 mg/dL Creatinine 5.26 H 0.700-1.30 mg/dL Glomerular Filtration Rate Calc 12 >90 mL/min BUN/Creatinine Ratio 14.8 10.0-20.0 Serum Glucose 144 H 74-106 mg/dL Calcium Level 8.0 L 8.7-10.4 mg/dL Total Bilirubin 2.5 H 0.2-1.0 mg/dL Aspartate Amino Transferase (AST) 69 H 13-40 U/L Alanine Aminotransferase (ALT) 88 H 7-40 U/L Alkaline Phosphatase 253 H 46-116 U/L Ammonia < 10 L 11-32 umol/L Total Protein 5.7 5.7-8.2 g/dL Albumin 3.7 3.2-4.8 g/dL POC Glucose 156 H 70-106 mg/dl Test 01/19/25 05:12 01/18/25 08:36 01/18/25 06:08 01/18/25 05:55 Range/Units White Blood Count 5.6 6.0 4.4-10.8 10^3/uL Red Blood Count 4.91 4.49 L 4.5-5.90 10^6/uL Hemoglobin 14.8 13.5 13.5-17.5 g/dL Hematocrit 43.2 # 38.4 L 41.0-53.0 % Mean Corpuscular Volume 88.0 85.5 80.0-100.0 fL Mean Corpuscular Hemoglobin 30.2 30.1 28.0-32.0 pg Mean Corpuscular Hemoglobin Concent 34.3 35.1 32.0-36.0 g/dL Red Cell Distribution Width 15.3 H 14.2 11.8-14.3 % Platelet Count 36 L 53 L 140-450 10^3/uL Mean Platelet Volume 9.7 8.7 6.9-10.8 fL Neutrophils (%) (Auto) 89.4 H 95.4 H 37.0-80.0 % Lymphocytes (%) (Auto) 4.7 L 2.5 L 10.0-50.0 % Monocytes (%) (Auto) 1.4 1.4 0.0-12.0 % Eosinophils (%) (Auto) 4.3 0.4 0.0-7.0 % Basophils (%) (Auto) 0.2 0.3 0.0-2.0 % Neutrophils # (Auto) 5.0 5.7 1.6-8.6 10 ^3/uL Lymphocytes # (Auto) 0.3 L 0.1 L 0.4-5.4 10 ^3/uL Monocytes # (Auto) 0.1 0.1 0-1.3 10 ^3/uL Eosinophils # (Auto) 0.2 0 0-0.8 10 ^3/uL Basophils # (Auto) 0 0 0-0.2 10 ^3/uL Nucleated Red Blood Cells 0.3 0.0 % Platelet Estimate Decreased Large Platelets Few Sodium Level 133 L 133 L 136-145 mmol/L Potassium Level 4.7 4.0 3.5-5.1 mmol/L Chloride Level 98 100 98-107 mmol/L Carbon Dioxide Level 19 L 17 L 20-31 mmol/L Anion Gap 16 H 16 H 5-15 Blood Urea Nitrogen 65 #H 50 H 9-23 mg/dL Creatinine 4.82 H 3.46 H 0.700-1.30 mg/dL Glomerular Filtration Rate Calc 13 19 >90 mL/min BUN/Creatinine Ratio 13.5 14.5 10.0-20.0 Serum Glucose 156 H 149 H 74-106 mg/dL Calcium Level 8.8 8.4 L 8.7-10.4 mg/dL Total Bilirubin 2.3 H 0.2-1.0 mg/dL Aspartate Amino Transferase (AST) 80 H 13-40 U/L Alanine Aminotransferase (ALT) 96 H 7-40 U/L Alkaline Phosphatase 255 H 46-116 U/L Total Protein 6.9 5.7-8.2 g/dL Albumin 4.3 3.2-4.8 g/dL Lactic Acid Level 1.7 2.5 *H 0.4-2.0 mmol/L Troponin I High Sensitivity 30 26 </=54 ng/L Urine Color Yellow Yellow Urine Clarity Turbid H Clear Urine pH 6.0 5.0-9.0 Urine Specific [place] 1.017 1.001-1.035 Urine Protein 2+ H Negative Urine Ketones Negative Negative Urine Blood 2+ H Negative /uL Urine Nitrite Negative Negative Urine Bilirubin 1+ Negative Urine Urobilinogen 3 H Negative mg/dL Urine Leukocyte Esterase Negative Negative /uL Urine RBC 3 0 - 3 /hpf Urine Microscopic WBC 4 H 0-3 /HPF Urine Squamous Epithelial Cells None seen <5 /hpf Urine Bacteria None seen None Seen /hpf Urine Sperm Present None Seen /hpf Urine Glucose Normal Normal mg/dL Hemoglobin A1c 6.5 H <5.7 % A1C B-Type Natriuretic Peptide 457.18 0-100 pg/mL Thyroid Stimulating Hormone (TSH) 1.78 0.55-4.78 uIU/mL Free Thyroxine (T4) Calculated 1.17 0.89-1.76 ng/dL Free Triiodothyronine (T3) pg/mL 2.53 2.3-4.2 pg/mL Assessment 60-year-old male poor medical care presents to the hospital with weakness and inability to ambulate has a history of chronic excessive alcohol use. Patient was intubated on the medical floor due to cardiopulmonary distress. Nephrology is consulted due to elevated creatinine level. 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 Bilateral inguinal hernias extending into the scrotum Severe lumbar disc disease Congestive heart failure Thrombocytopenia Agree with stabilization Intubation Pressors to maintain mean arterial pressure greater than 65 Patient's plan for platelet transfusion Given hypervolemic exam recommend diuretic therapy to increase and promote minimum 500-1 L net negative daily Accurate Is&Os record review of Bates Echocardiogram Cardiology consultation Replace electrolytes and sodium bicarbonate IV push to achieve balanced pH CT scan listed below, in the context family reports patient has been unable to ambulate recommend evaluation CT scan - Severe lumbar degenerative disc disease and facet arthropathy with multilevel significant neural foraminal stenosis bilaterally. Patient is critically ill has multiple medical conditions, we will recommend aggressive medical therapy initially however if patient fails then we will re commend dialysis renal replacement therapy. Critical care time spent 40 minutes Plan discussed with: Spouse JOSEPH HAM MD Jan 19, 2025 13:12
[2025-01-19] MEDS ORDERED: DEXTROSE (50%) 50ML SYRG IV PRN (13:15)
--- NOTE | 2025-01-19 13:24 | DVHPN2 ---
Assessment/Plan Assessment/Plan ICU note 60 yo M with gout admitted for back pain. This morning patient found to have elevated HR to 180s rapid response was called, patient was altered and BP was low. initial attempt done to give adenosine with no reduction in HR, patient received sync cardioversion with reversion to sinus tach that was only sustained for 1 minute which reverted back to SVT and started on amio drip. BP improved and patient was somewhat alert, given adenosine 12mg to attempt to re revert, which sustained less than a minute and now patient is in Afib with RVR. Patient was transferred to ICU, sustaining RVR, and more altered, decision made to intubate. Patient also has oral and nasal bleeding. After intubation patient persist to have low BP, started on peripheral pressor and placed TLC and a line. Discussion with renal initially patient was planned for possible dialysis if no improvement with IV diuretics. Patient however exhibit hypovolemic shock on POCUS and with the oral and nasal bleeding, possible alcohol use and cirrhosis, was started on rapid transfusion. Later he grows GNR in the blood. Empiric coverage with IV abx started. Physical exam intubated, sedated on mechanical ventilation obese equal pupil, minimal movement blood in oral and nasal surface mechanical breath sounds distant heart sound abdomen distended no LE edema prominent abdominal and varicose veins on LE vent 400 100% 18 peep 5 Drips levo amio vaso prop fent versed Lines LIJ TLC R rad el ETT young Labs EKG imaging reviewed Assessment and plan acute metabolic / toxic encephalopathy acute hypoxic RF req mechanical ventilation septic vs hemorrhagic shock possible acute on chronic diastolic HF possible cirrhosis JOSE ATN on CKD? GNR bacteremia severe thrombocytopenia with active bleeding SVT now new onset afib with RVR possible alcohol withdrawal alcohol use c/w mech ventilation possibly need to be bronched, consult pulm c/w pressors maintain MAP >65 rapid transfusion c/w sedation maintain RAAS 04 renal consult possible HD if BP allows empiric vanc and tiffanie c/w amio high dose thiamine and folate transfuse if HB <7 as bleeding currently stopped, will hold on octreotide and protonix drip diet NPO dvt ppx hold thrombocytopenia gi ppx protonix condition critical prognosis poor Plan discussed with: Other My Orders Orders - PINA FOX MD Procedure Category Date Status Time Abg W/ Co-Ox RT 01/19/25 Logged 09:53 Ventilator Orders RT 01/19/25 Transmitted 10:47 Abg W/ Co-Ox RT 01/19/25 Logged 11:40 Respiratory Culture TERE 01/19/25 In Process W/ Gs 10:47 Packedcells -Active BBK 01/19/25 In Process Bleeding 11:57 Pheresis Platelets BBK 01/19/25 In Process 11:57 Frozen Plasma BBK 01/19/25 In Process 11:57 Type And Screen BBK 01/19/25 Logged 11:57 Chest Portable XY 01/19/25 Taken 12:02 Comprehensive LAB 01/19/25 Logged Metabolic Panel 13:06 Complete Blood Count LAB 01/19/25 Logged 13:06 PTPTT LAB 01/20/25 Verified 04:00 Lactic Acid W/ Reflex LAB 01/19/25 Logged Order 13:06 Date of Service: Jan 19, 2025 Billing Provider: PINA FOX MD Common Visit Codes: [id number] CARE 30-74 MIN, [id number] CARE-EACH +30MIN PINA FOX MD Jan 19, 2025 13:24
--- NOTE | 2025-01-19 13:26 | DVHNC2 ---
Cardioversion Vagal maneuver: Were attempted Attempts: x2 Resulted Rhythm: SVT Direct Supervision: Yes Date of Service: Jan 19, 2025 Billing Provider: PINA FOX MD Common Visit Codes: PROCEDURE ONLY ([id number]) PINA FOX MD Jan 19, 2025 13:26
--- NOTE | 2025-01-19 13:27 | DVHNC2 ---
Arterial Puncture Indication: Assess ventilatory status, Assess acid-base status Location: Right Radial (a line, meghan test done normal, ) Informed consent obtained: Yes Date of Service: Jan 19, 2025 Billing Provider: PINA FOX MD Common Visit Codes: PROCEDURE ONLY Procedure Codes: [id number] PINA FOX MD Jan 19, 2025 13:27
[2025-01-19] MEDS: VANCOMYCIN 1GM/200ML PM 250 ML IV SCH (13:38)
--- NOTE | 2025-01-19 13:44 | DVH ---
CHEST RADIOGRAPH Indication: post central line place Technique: XY CHEST PORTABLE COMPARISON: None FINDINGS: Endotracheal tube tip projects 2.2 cm above the vin. Left IJ catheter tip projects over the SVC. The cardiac silhouette is enlarged. The lungs demonstrate bilateral patchy airspace opacities. The pu lmonary vasculature is prominent. Small left pleural effusion. There is no pneumothorax. IMPRESSION: As above
[2025-01-19 13:48] LABS: Base Excess -14.2 mmol/L (-2.0-3.0)
[2025-01-19 13:52] LABS: Hemoglobin 14.8 g/dL (13.5-17.5); Nucleated Red Blood Cells % 0.4 %
[2025-01-19 13:55] LABS: Hematocrit 43.8 % (41.0-53.0); Mean Corpuscular Hemoglobin 29.9 pg (28.0-32.0); Mean Corpuscular Volume 88.7 fL (80.0-100.0)
[2025-01-19 14:07] LABS: Albumin 3.9 g/dL (3.2-4.8); Anion Gap 16 (5-15); BUN/Creatinine Ratio 12.7 (10.0-20.0); Chloride 100 mmol/L (98-107); Total Protein 6.3 g/dL (5.7-8.2)
[2025-01-19 14:08] LABS: Alanine Aminotransferase 77 U/L (7-40); Alkaline Phosphatase 266 U/L (46-116); Bilirubin, Total 2.4 mg/dL (0.2-1.0); Blood Urea Nitrogen 72 mg/dL (9-23); Calcium 8.3 mg/dL (8.7-10.4); Carbon Dioxide 19 mmol/L (20-31); Glucose 201 mg/dL (74-106); Potassium 5.3 mmol/L (3.5-5.1); Sodium 135 mmol/L (136-145)
[2025-01-19] MEDS: PANTOPRAZOLE 40 MG/10 ML VIAL INJ IV ONE (15:26)
[2025-01-19] MEDS: VASOPRESSIN 20 UNITS in SODIUM CHL 0.9% 99 ML IV SCH (15:27)
[2025-01-19] MEDS: AMIODARONE 360mg/200mL PREMIX 200 ML IV SCH (15:34)
[2025-01-19 15:53] LABS: Base Excess -15.0 mmol/L (-2.0-3.0)
[2025-01-19] MEDS: ACCU-CHEK COMFORT CURVE STRIP VI SCH (16:00)
--- NOTE | 2025-01-19 16:20 | DVHINCON2 ---
Date Seen: Jan 19, 2025 Referring Physician MD Farrukh Reason for Consultation AFib RVR History of Present Illness This is a 60-year-old male patient who presents to emergency room with chief complaint of back pain. At the time of assessment, the patient is chemically sedated and mechanically ventilated. History obtained from bedside RN and patient's spouse at bedside. Cardiology has been consulted at this time for atrial fibrillation with rapid ventricular response. The patient was a code assist on the telemetry floor earlier this morning when the bedside RN noticed that the patient was altered. Subsequently, a 2nd code assist was called with the patient's nurse noted that the patient's heart rate was reaching as high as 170s. A review of the plastics factory worker at that time confirms that the patient went into atrial fibrillation with rapid ventricular response. According to code assist documentation, the patient was given adenosine 6 mg followed by adenosine 12 mg IV push. The patient was noted to become hypotensive. An amiodarone bolus was initiated followed by the amiodarone drip protocol. Finally, another adenosine dose of 12 mg IV was given with heart rate still sustaining in the 170s. The patient was then given direct current cardioversion. At the time of assessment, the patient is now in sinus tachycardia. Significant past medical history includes gout, tobacco use, alcohol abuse, and morbid obesity. The patient's spouse admits that the patient does not regularly see a primary care physician. Past Medical History Past medical history reviewed. No other significant than mentioned above. Past Surgical History Denies Family History: FH: HTN (hypertension) G8 MOTHER G8 FATHER FH: cancer of digestive organ G8 MOTHER FH: kidney disease G8 FATHER Family History Family history reviewed. Social History Patient has a 70 pack-year history, smokes approximately two packs of cigarettes per day Patient drinks approximately 60 beers per day Patient's spouse states that the patient used to do methamphetamine, last time around 2000 Allergies: Coded Allergies: NO KNOWN ALLERGIES (Unverified , 07/27/11) Home Meds Reported Medications Hydrocodone-Acetaminophen (Vicodin) 1 Tab Tab 07/27/11 Allopurinol (Allopurinol) 100 Mg Tab 07/27/11 Home Meds Home medications reviewed. Current Medications Current Medications Medications (Trade) Dose Ordered Sig/Natividad Route PRN Reason Start Time Stop Time Status Last Admin Folic Acid 1 mg DAILY PO 01/19/25 10:00 01/19/25 13:29 DC 01/19/25 09:08 Multivitamins (Mvi Tab) 1 tab DAILY PO 01/19/25 10:00 01/19/25 13:29 DC Thiamine HCl 100 mg DAILY PO 01/19/25 10:00 01/19/25 13:29 DC Chlordiazepoxide HCl (Librium Capsule) 50 mg Q12HR PO 01/19/25 10:00 01/19/25 13:29 DC Chlordiazepoxide HCl (Librium Capsule) 25 mg Q12HR PO 01/20/25 10:00 01/19/25 13:29 DC Chlordiazepoxide HCl (Librium Capsule) 25 mg QAM PO 01/21/25 07:00 01/19/25 13:29 DC Cefepime HCl 50 ml @ 12.5 mls/hr DAILY IV 01/19/25 10:00 01/19/25 13:29 DC 01/19/25 09:08 Levalbuterol HCl (Xopenex Medneb) 1.25 mg Q6HR NEB 01/19/25 12:00 01/19/25 08:20 DC Ipratropium [place] (Atrovent Medneb) 0.5 mg Q6HR NEB 01/19/25 12:00 01/19/25 08:20 DC Propofol 100 ml @ 3.015 mls/ hr Q24H IV 01/19/25 11:15 Midazolam HCl 50 ml @ 1 mls/hr Q24H IV 01/19/25 11:15 01/19/25 13:12 Fentanyl Citrate 250 ml @ 2.5 mls/hr Q24H IV 01/19/25 11:15 Vancomycin HCl 0 ml @ 0 mls/hr UD IV 01/19/25 13:00 Meropenem 50 ml @ 17 mls/hr Q12HR IV 01/19/25 22:00 Pantoprazole Sodium (Protonix) 40 mg BID IV 01/19/25 22:00 Vasopressin 20 units/Sodium Chloride 100 ml @ 9 mls/hr Q11H7M IV 01/19/25 13:00 01/19/25 15:27 Vancomycin HCl 250 ml @ 250 mls/hr Q1H IV 01/19/25 13:15 01/19/25 15:14 DC 01/19/25 15:41 Furosemide (Lasix Injection) 60 mg BIDD IV 01/19/25 18:00 Thiamine HCl 100 mg DAILY IV 01/20/25 10:00 Folic Acid 1 mg/ Dextrose 50.2 ml @ 200.8 mls/ hr DAILY INJ 01/20/25 10:00 Polyethylene Glycol (Miralax 17GM Powder) 17 gm DAILY PO 01/20/25 10:00 Diagnostic Test (Pha) (Accu-Chek Comfort Curve T) 1 strip IQ4HR 01/19/25 16:00 Dextrose 50 ml UD PRN IV Blood Sugar LESS THAN 60 01/19/25 13:15 Insulin Human Lispro (HumaLOG) Q4HR SC 01/19/25 14:00 Furosemide (Lasix Injection) 120 mg BIDD IV 01/19/25 18:00 01/19/25 14:38 DC Review of Systems Constitutional: No symptom reported Ears, Nose, & Throat: No symptom reported Eyes: No symptom reported Neurological: No symptoms reported Pulmonary/Respiratory: No symptoms reported Cardiovascular: No symptom reported Gastrointestinal: No symptom reported Genitourinary: No symptom reported Musculoskeletal: Back pain Skin: No symptom reported Psychiatric: No symptom reported Endocrine: No symptom reported Hematologic/Lymphatic: No symptom reported Vital Signs Vital Signs Date Time Temp Pulse Resp B/P (MAP) Pulse Ox O2 Delivery O2 Flow Rate FiO2 01/19/25 16:03 109 28 106/63 (77) 95 70 01/19/25 10:00 Nasal Cannula* 6 01/19/25 05:20 99.0 99.0 Physical Exam General Appearance: Calm, relaxed. Morbidly obese Pulmonary/Respiratory: Clear, bilateral breaths sounds. Mechanically ventilated Cardiovascular/Chest: Regular rate and rhythm. Peripheral Pulses: 2+ Radial (R). 2+ Radial (L). 2+ Pedal (R). 2+ Pedal (L) Abdominal Exam: Normal bowel sounds. Ankle Exam: Negative ankle edema Lower extremities: Negative lower extremity edema Neuro/Mental Status: Chemically sedated Thoughts/Psych: Deferred Appearance: No acute distress. Skin Exam: Normal inspection. Normal color. Warm and dry. Labs/Diagnostic Data Labs Test 01/19/25 15:46 01/19/25 15:20 01/19/25 13:14 01/19/25 09:53 Range/Units Blood Gas Specimen Type Arterial Blood Gas Sample Site Arterial line Blood Gas Patient Temperature 37.0 Arterial Blood Date Drawn [id number] Arterial Blood pH 7.035 *L 7.350-7.450 Arterial Blood Partial Pressure CO2 62.8 *H 35.0-48.0 mmHg Arterial Blood Partial Pressure O2 89.5 83.0-108.0 mmHg Arterial Blood HCO3 16.4 L 21.0-28.0 mmol/L Arterial Blood Oxygen Saturation 93.4 L 94.0-98.0 % Arterial Blood Base Excess -15.0 L -2.0-3.0 mmol/L Arterial Blood Oxyhemoglobin 92.4 L 94.0-98.0 % Arterial Blood Carboxyhemoglobin 0.8 0.5-1.5 % Arterial Blood Methemoglobin 0.3 0.0-1.5 % Eligio Test N/a Blood Gas Total Hemoglobin 14.60 13.5-17.5 g/dL Blood Gas Set Respiration Rate 24.0 Blood Gas Modality Vent - ac FiO2 % 80.0 Blood Gas Tidal Volume 420.0 Blood Gas PEEP or CPAP 5.0 Blood Gas Critical Value Read Back Yes Blood Gas Notified Whom Aaron bueno md Blood Gas Notified Time [id number] Blood Gas Notified By Pyrotechnic Assembler kiera florentino POC Glucose 193 H 70-106 mg/dl White Blood Count 11.3 #H 4.4-10.8 10^3/uL Red Blood Count 4.94 4.5-5.90 10^6/uL Hemoglobin 14.8 13.5-17.5 g/dL Hematocrit 43.8 41.0-53.0 % Mean Corpuscular Volume 88.7 80.0-100.0 fL Mean Corpuscular Hemoglobin 29.9 28.0-32.0 pg Mean Corpuscular Hemoglobin Concent 33.7 32.0-36.0 g/dL Red Cell Distribution Width 15.9 H 11.8-14.3 % Platelet Count 31 L 140-450 10^3/uL Mean Platelet Volume 10.7 6.9-10.8 fL Neutrophils (%) (Auto) 88.6 H 37.0-80.0 % Lymphocytes (%) (Auto) 3.5 L 10.0-50.0 % Monocytes (%) (Auto) 3.4 0.0-12.0 % Eosinophils (%) (Auto) 4.1 0.0-7.0 % Basophils (%) (Auto) 0.4 0.0-2.0 % Neutrophils # (Auto) 10.0 H 1.6-8.6 10 ^3/uL Lymphocytes # (Auto) 0.4 0.4-5.4 10 ^3/uL Monocytes # (Auto) 0.4 0-1.3 10 ^3/uL Eosinophils # (Auto) 0.5 0-0.8 10 ^3/uL Basophils # (Auto) 0 0-0.2 10 ^3/uL Nucleated Red Blood Cells 0.4 % Sodium Level 135 L 136-145 mmol/L Potassium Level 5.3 H 3.5-5.1 mmol/L Chloride Level 100 98-107 mmol/L Carbon Dioxide Level 19 L 20-31 mmol/L Anion Gap 16 H 5-15 Blood Urea Nitrogen 72 H 9-23 mg/dL Creatinine 5.68 H 0.700-1.30 mg/dL Glomerular Filtration Rate Calc 11 >90 mL/min BUN/Creatinine Ratio 12.7 10.0-20.0 Serum Glucose 201 H 74-106 mg/dL Lactic Acid Level 1.9 0.4-2.0 mmol/L Calcium Level 8.3 L 8.7-10.4 mg/dL Total Bilirubin 2.4 H 0.2-1.0 mg/dL Aspartate Amino Transferase (AST) 70 H 13-40 U/L Alanine Aminotransferase (ALT) 77 H 7-40 U/L Alkaline Phosphatase 266 H 46-116 U/L Total Protein 6.3 5.7-8.2 g/dL Albumin 3.9 3.2-4.8 g/dL Blood Gas Liter Flow 12.00 Blood Gas Spontaneous Rate 20 Test 01/19/25 08:10 01/19/25 05:12 01/18/25 08:36 01/18/25 06:08 Range/Units Platelet Estimate Decreased Ammonia < 10 L 11-32 umol/L Large Platelets Few Troponin I High Sensitivity 30 </=54 ng/L Urine Color Yellow Yellow Urine Clarity Turbid H Clear Urine pH 6.0 5.0-9.0 Urine Specific [place] 1.017 1.001-1.035 Urine Protein 2+ H Negative Urine Ketones Negative Negative Urine Blood 2+ H Negative /uL Urine Nitrite Negative Negative Urine Bilirubin 1+ Negative Urine Urobilinogen 3 H Negative mg/dL Urine Leukocyte Esterase Negative Negative /uL Urine RBC 3 0 - 3 /hpf Urine Microscopic WBC 4 H 0-3 /HPF Urine Squamous Epithelial Cells None seen <5 /hpf Urine Bacteria None seen None Seen /hpf Urine Sperm Present None Seen /hpf Urine Glucose Normal Normal mg/dL Test 01/18/25 05:55 Range/Units Hemoglobin A1c 6.5 H <5.7 % A1C B-Type Natriuretic Peptide 457.18 0-100 pg/mL Thyroid Stimulating Hormone (TSH) 1.78 0.55-4.78 uIU/mL Free Thyroxine (T4) Calculated 1.17 0.89-1.76 ng/dL Free Triiodothyronine (T3) pg/mL 2.53 2.3-4.2 pg/mL Microbiology Date/Time Source Procedure Growth Status 01/18/25 06:30 Blood Blood Culture - Preliminary Resulted 01/18/25 06:08 Voided Urine Urine Culture - Preliminary Resulted Assessment Atrial fibrillation with rapid ventricular response status post direct current cardioversion, now sinus tachycardia Acute hypoxic respiratory failure Rule out structural heart disease Septic versus hemorrhagic shock Severe thrombocytopenia Type 2 diabetes mellitus, newly diagnosed Alcohol use disorder Transaminitis Acute kidney injury Liver cirrhosis Tobacco use History of methamphetamine use Morbid obesity Medical noncompliance Plan/Recommendation We will continue with the following plan/recommendations (Dr. Sloan): * Transthoracic echocardiogram to evaluate cardiac function * Continue vasopressor therapy for hemodynamic support * ?[id number] VASc score: 1 point, HAS-BLED score: 3 points * Hold off anticoagulation given severe thrombocytopenia. Initiate SCDs * Unable to initiate beta-diane given vasopressor therapy * Amiodarone drip, closely monitor LFTs * Monitor and replete electrolytes as needed * Closely monitor hemoglobin and hematocrit, transfuse as needed * Close Cardiac surveillance Thank you for allowing us to care for this patient. Please call with any questions or concerns. Critical care time spent: 44 minutes This medical document was created using an electronic medical record system with voice recognition software and computerized dictation system. Although this document has been carefully reviewed, there might still be some phonetic and typographical errors. Occasional wrong-word or ``sound-alike substitutions may have occurred due to the inherent limitations of voice recognition software. These areas are purely typographical due to imperfections of the software programs and do not reflect any compromise in the patient's medical care. Please read the chart carefully and recognize, using context, where these substitutions have occurred. Plan discussed with: Patient NYHA Physical activity limitations: NA Date of Service: Jan 19, 2025 Billing Provider: JOHN PEARCE Cardiology Common Codes: 55016-VKBOGVD INP/OBS CARE (High) Cardiology Consultation Codes: [id number] CONSULT <45MIN JOHN PEARCE Jan 19, 2025 16:20
[2025-01-19] MEDS: FUROSEMIDE 100 MG/10ML VIAL IV ONE (16:32)
[2025-01-19] MEDS: INSULIN LISPRO (HUMAN) 100 UNITS/ML ML SC SCH (16:34)
--- NOTE | 2025-01-19 17:00 | DVH ---
CHEST RADIOGRAPH Indication: og tube placement Technique: Single frontal view of the chest was obtained Comparison: XY CHEST PORTABLE on DOS: 01/19/25, XY CHEST XRAY 1 VIEW on DOS: 01/19/25, XY CHEST XRAY 1 VIEW on DOS: 01/19/25 FINDINGS: Lines and Tubes: OG tube below the left diaphragm in the stomach. It has been advanced. Lungs: No focal consolidation. Pleura: No effusion. No pneumothorax. Cardiomediastinal contours: Unremarkable Bones: No acute osseous abnormality. IMPRESSION: 1. OG tube in good position below the left diaphragm in the stomach.
[2025-01-19] MEDS ORDERED: FUROSEMIDE 100 MG/10ML VIAL IV SCH (18:00)
[2025-01-19 18:25] LABS: Base Excess -14.5 mmol/L (-2.0-3.0)
[2025-01-19] MEDS: FUROSEMIDE 100 MG/10ML VIAL IV SCH (18:42)
[2025-01-19] MEDS: SODIUM BICARB 8.4% 50Meq/50ml SYR Vial IV ONE (20:00)
[2025-01-19] MEDS: SODIUM BICARB 8.4% 50Meq/50ml SYR INJ ONE (20:00)
[2025-01-19 21:18] LABS: Base Excess -11.2 mmol/L (-2.0-3.0)
[2025-01-19] MEDS: ACETAMINOPHEN 325 MG TAB PO PRN (21:59)
[2025-01-19] MEDS: MEROPENEM 500MG IVPB 50 ML IV SCH (22:00)
[2025-01-19] MEDS: PANTOPRAZOLE 40 MG/10 ML VIAL INJ IV SCH (22:00)
[2025-01-19] MEDS: SODIUM BICARB 50mEq/50ml Vial 100 ML in SOD CHL 0.45% 1,000 ML IV SCH (22:01)
--- NOTE | 2025-01-19 22:20 | DVHINCON2 ---
Date of service: Jan 19, 2025 Referring Physician Farrukh Reason for Consultation ETOH liver disease possible UGI bleed History of Present Illness Ron Arriaga is a 60-year-old male with past medical history of gout, takes no medications, and has not been to a physician in over 3 years. He came to the hospital today due to severe back pain. Patient states the pain started about 2 days ago, continued to worsen prompting him to come to the hospital. Ct showed: thyroid nodule, hepatic steatosis, fecal retention, diverticulosis, emphysema, trace bilateral pleural effusions, bilateral inguinal hernias, and severe lumbar degenerative disc disease. Patient had acute renal insufficiency and was evaluated by guide This morning the patient went developed severe tachycardia hypotension and SVT requiring cardioversion attempts and code assist. Patient is finally intubated and transferred to the ICU. When the patient was being intubated there was moderate amount of blood coming up from his mouth and GI was consulted for possible upper GI bleed. Patient also has a history of chronic alcoholism drinking 6-8 beers per day and there was concern for underlying chronic liver disease Past Medical History Gout ETOH abuse Past Surgical History None Family History: FH: HTN (hypertension) G8 MOTHER G8 FATHER FH: cancer of digestive organ G8 MOTHER FH: kidney disease G8 FATHER Allergies: Coded Allergies: NO KNOWN ALLERGIES (Unverified , 07/27/11) Home Meds Reported Medications Hydrocodone-Acetaminophen (Vicodin) 1 Tab Tab 07/27/11 Allopurinol (Allopurinol) 100 Mg Tab 07/27/11 Current Medications Current Medications Medications (Trade) Dose Ordered Sig/Natividad Route PRN Reason Start Time Stop Time Status Last Admin Folic Acid 1 mg DAILY PO 01/19/25 10:00 01/19/25 13:29 DC 01/19/25 09:08 Multivitamins (Mvi Tab) 1 tab DAILY PO 01/19/25 10:00 01/19/25 13:29 DC Thiamine HCl 100 mg DAILY PO 01/19/25 10:00 01/19/25 13:29 DC Chlordiazepoxide HCl (Librium Capsule) 50 mg Q12HR PO 01/19/25 10:00 01/19/25 13:29 DC Chlordiazepoxide HCl (Librium Capsule) 25 mg Q12HR PO 01/20/25 10:00 01/19/25 13:29 DC Chlordiazepoxide HCl (Librium Capsule) 25 mg QAM PO 01/21/25 07:00 01/19/25 13:29 DC Cefepime HCl 50 ml @ 12.5 mls/hr DAILY IV 01/19/25 10:00 01/19/25 13:29 DC 01/19/25 09:08 Levalbuterol HCl (Xopenex Medneb) 1.25 mg Q6HR NEB 01/19/25 12:00 01/19/25 08:20 DC Ipratropium [place] (Atrovent Medneb) 0.5 mg Q6HR NEB 01/19/25 12:00 01/19/25 08:20 DC Propofol 100 ml @ 3.015 mls/ hr Q24H IV 01/19/25 11:15 01/19/25 10:42 Midazolam HCl 50 ml @ 1 mls/hr Q24H IV 01/19/25 11:15 01/19/25 10:35 Fentanyl Citrate 250 ml @ 2.5 mls/hr Q24H IV 01/19/25 11:15 01/19/25 10:35 Vancomycin HCl 0 ml @ 0 mls/hr UD IV 01/19/25 13:00 Meropenem 50 ml @ 17 mls/hr Q12HR IV 01/19/25 22:00 Pantoprazole Sodium (Protonix) 40 mg BID IV 01/19/25 22:00 Vasopressin 20 units/Sodium Chloride 100 ml @ 9 mls/hr Q11H7M IV 01/19/25 13:00 01/19/25 15:27 Vancomycin HCl 250 ml @ 250 mls/hr Q1H IV 01/19/25 13:15 01/19/25 15:14 DC 01/19/25 15:41 Furosemide (Lasix Injection) 60 mg BIDD IV 01/19/25 18:00 01/19/25 18:42 Thiamine HCl 100 mg DAILY IV 01/20/25 10:00 Folic Acid 1 mg/ Dextrose 50.2 ml @ 200.8 mls/ hr DAILY INJ 01/20/25 10:00 Polyethylene Glycol (Miralax 17GM Powder) 17 gm DAILY PO 01/20/25 10:00 Diagnostic Test (Pha) (Accu-Chek Comfort Curve T) 1 strip IQ4HR 01/19/25 16:00 01/19/25 20:11 Dextrose 50 ml UD PRN IV Blood Sugar LESS THAN 60 01/19/25 13:15 Insulin Human Lispro (HumaLOG) Q4HR SC 01/19/25 14:00 01/19/25 19:04 Furosemide (Lasix Injection) 120 mg BIDD IV 01/19/25 18:00 01/19/25 14:38 DC Hydrocortisone Sodium Succinate (Solu-CORTEF INJECTION) 50 mg Q6HR IV 01/20/25 00:00 Norepinephrine Bitartrate 250 ml @ 3.75 mls/hr Q24H IV 01/19/25 20:15 01/19/25 10:14 Sodium Bicarbonate 100 ml/Sodium Chloride 1,100 ml @ 85 mls/hr [id number] IV 01/19/25 21:30 Vital Signs Vital Signs Date Time Temp Pulse Resp B/P (MAP) Pulse Ox O2 Delivery O2 Flow Rate FiO2 01/19/25 21:15 100.6 92 28 114/60 (78) 100 213.1 94/55 (68) 01/19/25 19:56 70 01/19/25 10:00 Nasal Cannula* 6 Physical Exam Elderly male intubated sedated, morbidly obese Abdomen large distended Bilateral pitting edema Crackles bilateral bases Bates catheter Labs/Diagnostic Data Labs Test 01/19/25 21:08 01/19/25 20:09 01/19/25 13:14 01/19/25 09:53 Range/Units Blood Gas Specimen Type Arterial Blood Gas Sample Site Arterial line Blood Gas Patient Temperature 37.0 Arterial Blood Date Drawn [id number] Arterial Blood pH 7.187 *L 7.350-7.450 Arterial Blood Partial Pressure CO2 45.2 35.0-48.0 mmHg Arterial Blood Partial Pressure O2 127.7 H 83.0-108.0 mmHg Arterial Blood HCO3 16.8 L 21.0-28.0 mmol/L Arterial Blood Oxygen Saturation 97.9 94.0-98.0 % Arterial Blood Base Excess -11.2 L -2.0-3.0 mmol/L Arterial Blood Oxyhemoglobin 97.5 94.0-98.0 % Arterial Blood Carboxyhemoglobin 0.3 L 0.5-1.5 % Arterial Blood Methemoglobin 0.1 0.0-1.5 % Eligio Test N/a Blood Gas Total Hemoglobin 13.40 L 13.5-17.5 g/dL Blood Gas Set Respiration Rate 28.0 Blood Gas Modality Vent - ac FiO2 % 70.0 Blood Gas Tidal Volume 500.0 Blood Gas PEEP or CPAP 5.0 Blood Gas Critical Value Read Back Yes Blood Gas Notified Whom thomas Li np Blood Gas Notified Time [id number] Blood Gas Notified By thomas Wu rrt POC Glucose 143 H 70-106 mg/dl White Blood Count 11.3 #H 4.4-10.8 10^3/uL Red Blood Count 4.94 4.5-5.90 10^6/uL Hemoglobin 14.8 13.5-17.5 g/dL Hematocrit 43.8 41.0-53.0 % Mean Corpuscular Volume 88.7 80.0-100.0 fL Mean Corpuscular Hemoglobin 29.9 28.0-32.0 pg Mean Corpuscular Hemoglobin Concent 33.7 32.0-36.0 g/dL Red Cell Distribution Width 15.9 H 11.8-14.3 % Platelet Count 31 L 140-450 10^3/uL Mean Platelet Volume 10.7 6.9-10.8 fL Neutrophils (%) (Auto) 88.6 H 37.0-80.0 % Lymphocytes (%) (Auto) 3.5 L 10.0-50.0 % Monocytes (%) (Auto) 3.4 0.0-12.0 % Eosinophils (%) (Auto) 4.1 0.0-7.0 % Basophils (%) (Auto) 0.4 0.0-2.0 % Neutrophils # (Auto) 10.0 H 1.6-8.6 10 ^3/uL Lymphocytes # (Auto) 0.4 0.4-5.4 10 ^3/uL Monocytes # (Auto) 0.4 0-1.3 10 ^3/uL Eosinophils # (Auto) 0.5 0-0.8 10 ^3/uL Basophils # (Auto) 0 0-0.2 10 ^3/uL Nucleated Red Blood Cells 0.4 % Sodium Level 135 L 136-145 mmol/L Potassium Level 5.3 H 3.5-5.1 mmol/L Chloride Level 100 98-107 mmol/L Carbon Dioxide Level 19 L 20-31 mmol/L Anion Gap 16 H 5-15 Blood Urea Nitrogen 72 H 9-23 mg/dL Creatinine 5.68 H 0.700-1.30 mg/dL Glomerular Filtration Rate Calc 11 >90 mL/min BUN/Creatinine Ratio 12.7 10.0-20.0 Serum Glucose 201 H 74-106 mg/dL Lactic Acid Level 1.9 0.4-2.0 mmol/L Calcium Level 8.3 L 8.7-10.4 mg/dL Total Bilirubin 2.4 H 0.2-1.0 mg/dL Aspartate Amino Transferase (AST) 70 H 13-40 U/L Alanine Aminotransferase (ALT) 77 H 7-40 U/L Alkaline Phosphatase 266 H 46-116 U/L Total Protein 6.3 5.7-8.2 g/dL Albumin 3.9 3.2-4.8 g/dL Blood Gas Liter Flow 12.00 Blood Gas Spontaneous Rate 20 Test 01/19/25 08:10 01/19/25 05:12 01/18/25 08:36 01/18/25 06:08 Range/Units Platelet Estimate Decreased Ammonia < 10 L 11-32 umol/L Large Platelets Few Troponin I High Sensitivity 30 </=54 ng/L Urine Color Yellow Yellow Urine Clarity Turbid H Clear Urine pH 6.0 5.0-9.0 Urine Specific [place] 1.017 1.001-1.035 Urine Protein 2+ H Negative Urine Ketones Negative Negative Urine Blood 2+ H Negative /uL Urine Nitrite Negative Negative Urine Bilirubin 1+ Negative Urine Urobilinogen 3 H Negative mg/dL Urine Leukocyte Esterase Negative Negative /uL Urine RBC 3 0 - 3 /hpf Urine Microscopic WBC 4 H 0-3 /HPF Urine Squamous Epithelial Cells None seen <5 /hpf Urine Bacteria None seen None Seen /hpf Urine Sperm Present None Seen /hpf Urine Glucose Normal Normal mg/dL Test 01/18/25 05:55 Range/Units Hemoglobin A1c 6.5 H <5.7 % A1C B-Type Natriuretic Peptide 457.18 0-100 pg/mL Thyroid Stimulating Hormone (TSH) 1.78 0.55-4.78 uIU/mL Free Thyroxine (T4) Calculated 1.17 0.89-1.76 ng/dL Free Triiodothyronine (T3) pg/mL 2.53 2.3-4.2 pg/mL Microbiology Date/Time Source Procedure Growth Status 01/18/25 06:30 Blood Blood Culture - Preliminary Resulted 01/18/25 06:08 Voided Urine Urine Culture - Preliminary Resulted RUQ USG Impression: Technically limited examination due to patient cooperation. No identifiable cholelithiasis. Echogenic liver which can be seen with hepatic steatosis, cirrhosis. Hepatomegaly CT CHEST ABD PELVIS IMPRESSION: 1. Mild emphysema. 2. Trace bilateral pleural effusions and mild bilateral lower lobe dependent atelectasis. 3. Cardiomegaly and coronary artery disease. 4. Right thyroid nodule. Recommend follow-up outpatient thyroid ultrasound for better characterization. 5. Hepatomegaly, hepatic steatosis, and borderline splenomegaly. 6. Fecal retention throughout the colon suggestive of constipation. 7. Descending and sigmoid colon diverticulosis without evidence of acute diverticulitis. 8. Bilateral fatty inguinal indirect hernias extend into the scrotum, larger on the left. 9. Severe lumbar degenerative disc disease and facet arthropathy with multilevel significant neural foraminal stenosis bilaterally. Recommend follow-up outpatient noncontrast lumbar spine MRI for better characterization, especially if the patient complains of lower extremity radicular symptoms. 10. No evidence of bowel obstruction, acute appendicitis, or other acute process in the abdomen or pelvis. Problems(with codes): (1) UGIB (upper gastrointestinal bleed) (2) Elevated liver enzymes (3) SVT (supraventricular tachycardia) (4) Acute tubular necrosis (5) Sepsis, unspecified organism (6) CHF (congestive heart failure) Plan/Recommendation Plan At this point in time continue conservative management Protonix 40 mg IV q.12 hours Serial H&H Transfuse if hemoglobin drops below eight Hold Lovenox and blood thinners for now Liver workup with hepatitis panel YANDY ferritin Correct coagulopathy I will follow up patient with you closely and we will be standing by for an endoscopy if urgently indicated Plan discussed with: Patient PALMIRA OCHOA MD Jan 19, 2025 22:20
[2025-01-19] MEDS: HYDROCORTISONE SOD SUCC 100 MG/2ML INJ VIAL IV SCH (23:43)
[2025-01-20] VITALS (69 sets, daily range): BP systolic 92–141; BP diastolic 34–85; PULSE 70–90; RESP 28; TEMP 97.7–100.4; O2SAT 89–100
[2025-01-20 00:42] LABS: Base Excess -11.4 mmol/L (-2.0-3.0)
[2025-01-20 03:57] LABS: Hemoglobin 12.2 g/dL (13.5-17.5)
[2025-01-20 03:59] LABS: Hematocrit 35.5 % (41.0-53.0); Mean Corpuscular Hemoglobin 29.8 pg (28.0-32.0); Mean Corpuscular Volume 86.7 fL (80.0-100.0); Nucleated Red Blood Cells % 0.1 %
[2025-01-20 04:07] LABS: Albumin 3.2 g/dL (3.2-4.8); Anion Gap 20 (5-15); BUN/Creatinine Ratio 13.1 (10.0-20.0); Chloride 101 mmol/L (98-107); INR 1.07 (0.9-1.15); Magnesium 2.4 mg/dL (1.6-2.6); Partial Thromboplastin Time 35.2 SEC (24.5-34.5); Potassium 5.0 mmol/L (3.5-5.1); Prothrombin Time 11.3 sec (9.3-11.8); Sodium 137 mmol/L (136-145)
[2025-01-20 04:09] LABS: Alanine Aminotransferase 53 U/L (7-40); Alkaline Phosphatase 176 U/L (46-116); Bilirubin, Direct 3.7 mg/dL (<0.3); Bilirubin, Total 4.5 mg/dL (0.2-1.0); Calcium 7.2 mg/dL (8.7-10.4); Carbon Dioxide 16 mmol/L (20-31); Glucose 154 mg/dL (74-106); Total Protein 5.4 g/dL (5.7-8.2)
[2025-01-20 04:11] LABS: Blood Urea Nitrogen 85 mg/dL (9-23)
--- NOTE | 2025-01-20 05:59 | DVH ---
CHEST RADIOGRAPH Indication: ON VENTILATOR Technique: Single frontal view of the chest was obtained COMPARISON: XY CHEST PORTABLE on DOS: 01/19/25, XY CHEST PORTABLE on DOS: 01/19/25, XY CHEST XRAY 1 VIE W on DOS: 01/19/25, XY CHEST XRAY 1 VIEW on DOS: 01/19/25, XY CHEST PORTABLE on DOS: 01/18/25 FINDINGS: Lines and Tubes: Unchanged. Lungs: Stable small left pleural effusion. Mild diffuse increased prominence of the pulmonary vascul ature. No evidence of focal consolidation. No pneumothorax. Cardiomediastinal contours: Unremarkable Bones: Unremarkable IMPRESSION: 1. Stable small left pleural effusion and mild diffuse increased prominence of the pulmonary vasculat ure. 2. Lines and tubes unchanged.
[2025-01-20 06:24] LABS: Base Excess -11.0 mmol/L (-2.0-3.0)
--- NOTE | 2025-01-20 08:32 | DVHPN2 ---
Consult Progress Note Subjective Other Systems: Patient in normal sinus rhythm at time of assessment. Patient remains chemically sedated and mechanically ventilated at time of assessment. Objective vital signs Vital Sign Date Time Temp Pulse Resp B/P (MAP) Pulse Ox O2 Delivery O2 Flow Rate FiO2 01/20/25 08:00 79 28 124/70 (88) 100 30 01/20/25 07:15 97.7 207.9 01/20/25 05:49 Mechanical Ventilator+ 0 Total Intake and Output 01/19/25 01/19/25 01/20/25 15:00 23:00 07:00 Intake Total 939.415 ml 1754.865 ml 1414.315 ml Output Total 125 ml 550 ml Balance 939.415 ml 1629.865 ml 864.315 ml medications Current Medications Medications Dose Ordered Sig/Natividad Route Start Time Stop Time Status Last Admin Dose Admin Propofol 100 ml @ 3.015 mls/ hr Q24H IV 01/19/25 11:15 01/19/25 22:51 12.06 MLS/HR Midazolam HCl 50 ml @ 1 mls/hr Q24H IV 01/19/25 11:15 01/20/25 05:39 11 MLS/HR Fentanyl Citrate 250 ml @ 2.5 mls/hr Q24H IV 01/19/25 11:15 01/20/25 03:00 27.5 MLS/HR Vancomycin HCl 0 ml @ 0 mls/hr UD IV 01/19/25 13:00 Meropenem 50 ml @ 17 mls/hr Q12HR IV 01/19/25 22:00 01/19/25 22:00 17 MLS/HR Pantoprazole Sodium 40 mg BID IV 01/19/25 22:00 01/19/25 22:00 40 MG Vasopressin 20 units/Sodium Chloride 100 ml @ 9 mls/hr Q11H7M IV 01/19/25 13:00 01/19/25 23:42 9 MLS/HR Furosemide 60 mg BIDD IV 01/19/25 18:00 01/20/25 05:36 60 MG Thiamine HCl 100 mg DAILY IV 01/20/25 10:00 Folic Acid 1 mg/ Dextrose 50.2 ml @ 200.8 mls/ hr DAILY INJ 01/20/25 10:00 Polyethylene Glycol 17 gm DAILY PO 01/20/25 10:00 Diagnostic Test (Pha) 1 strip IQ4HR 01/19/25 16:00 01/20/25 03:54 1 STRIP Dextrose 50 ml UD PRN IV 01/19/25 13:15 Insulin Human Lispro Q4HR SC 01/19/25 14:00 01/19/25 19:04 1 UNITS Hydrocortisone Sodium Succinate 50 mg Q6HR IV 01/20/25 00:00 01/20/25 05:35 50 MG Norepinephrine Bitartrate 250 ml @ 3.75 mls/hr Q24H IV 01/19/25 20:15 01/20/25 00:34 22.5 MLS/HR Sodium Bicarbonate 100 ml/Sodium Chloride 1,100 ml @ 85 mls/hr [id number] IV 01/19/25 21:30 01/19/25 22:01 85 MLS/HR Examination: GENERAL:Abnormal, LUNGS:Abnormal (Mechanically ventilated, FiO2 30%, peep 5.0), CVS:Normal, NEURO:Abnormal (Chemically sedated) laboratory and microbiology Laboratory Tests 01/20/25 03:17 Test 01/20/25 03:17 Range/Units Serum Glucose 154 H 74-106 mg/dL Problem List/Assessment/Plan Problem List/Assessment/Plan Atrial fibrillation with rapid ventricular response status post direct current cardioversion, now normal sinus rhythm Acute hypoxic respiratory failure Acute on chronic HFmrEF, NYHA class IV, newly diagnosed Septic versus hemorrhagic shock Severe thrombocytopenia Type 2 diabetes mellitus, newly diagnosed Pulmonary hypertension, severe degree Alcohol use disorder Upper GI bleed Transaminitis Acute kidney injury Liver cirrhosis Tobacco use History of methamphetamine use Morbid obesity Medical noncompliance Plan/Recommendations (Dr. Sloan): * Transthoracic echocardiogram reveals EF 45%, RVSP 64 mmHg * Unable to initiate guideline directed medical therapy for CHF given vasopressor support * Continue vasopressor therapy for hemodynamic support * ?[id number] VASc score: 1 point, HAS-BLED score: 3 points * Hold off anticoagulation given severe thrombocytopenia. Continue SCDs * Unable to initiate beta-diane given vasopressor therapy * Amiodarone, transitioned to oral * Monitor and replete electrolytes as needed * Closely monitor hemoglobin and hematocrit, transfuse as needed * Close Cardiac surveillance Thank you for allowing us to care for this patient. Please call with any questions or concerns. Critical care time spent: 38 minutes. This medical document was created using an electronic medical record system with voice recognition software and computerized dictation system. Although this document has been carefully reviewed, there might still be some phonetic and typographical errors. Occasional wrong-word or ``sound-alike substitutions may have occurred due to the inherent limitations of voice recognition software. These areas are purely typographical due to imperfections of the software programs and do not reflect any compromise in the patient's medical care. Please read the chart carefully and recognize, using context, where these substitutions have occurred. Plan discussed with: Patient Date of Service: Jan 20, 2025 Billing Provider: JOHN PEARCE Common Visit Codes: [id number] CARE 30-74 MIN JOHN PEARCE Jan 20, 2025 08:32
--- NOTE | 2025-01-20 09:22 | DVHSR ---
APPROVED REPORT EXAM: Two-dimensional and M-mode echocardiogram with Doppler and color Doppler. Blood Pressure: 147/66 mmHg INDICATION LVEF RV Strain RISK FACTORS Obesity: Height: 5' 7", Weight: 221 DIMENSIONS LVDd4.2 (3.8-5.7cm)LA (2D)3.8 (1.9-4.0cm)Aortic Root3.6 (2.0-3.7cm) LVDs3.3 (2.5-4.0cm)LA (MM) (1.9-4.0cm)Aortic Cusp Exc1.9 (1.5-2.0cm) EF (%) 45.0 (55-70%)Rt. Atrium3.7 (1.9-4.0cm)Asc. Aorta cm IVSd1.3 (0.7-1.1cm)RV (D) (1.8-2.4cm) PWd1.3 (0.7-1.1cm) Mitral Valve MitralMitral Stenosis E wave0.80m/sMV Mean GR.mmHg A wave0.80m/sMV Peak GR.mmHg E/A ratio1.02D MVAcm2 Aortic Valve Aortic ValveAortic Stenosis V11.10m/Robby Mean GR.8mmHg V21.80m/Robby Peak GR.14mmHg LVOT Diameter2.1 (1.8-2.4cm)Doppler AVA2.12cm2 Tricuspid Valve TR Velocity3.60m/s [id number] Conclusion LV SLIGHTLY DILATED MILD LV GLOBAL HYPOKINESIS LV EF IS 45% AND IS BORDERLINE REDUCED NORMAL VALVES SEVERE PULMONARY HYPERTENSION RVSP IS 64 MM OF HG AND IS VERY HIGH NO EFFUSION
[2025-01-20] MEDS: THIAMINE 100mg/ml INJ (200mg/2ml VIAL) IV SCH (10:10)
[2025-01-20] MEDS: POLYETHYLENE GLYCOL 17 GM PWDR PO SCH (10:12)
[2025-01-20] MEDS: AMIODARONE HCL 200 MG TAB PO SCH (10:13)
[2025-01-20] MEDS: FOLIC ACID 1 MG in D5W 5% 50 ML INJ SCH (10:49)
[2025-01-20 10:53] LABS: Hepatitis A Total Antibody Positive (Negative); Hepatitis B Surface Antigen Negative (Negative); Hepatitis C Antibody Negative (Negative)
--- NOTE | 2025-01-20 10:56 | DVHPN2 ---
Progress Note - Dictate Date Seen: Jan 20, 2025 Medical Necessity Reason Pt with a Central, PICC or Fol: Yes The following are medically ne: Young Catheter Reason for young catheter: Strict I&O Subjective Remains intubated, urine volumes nonoliguric vital signs Vital Sign Date Time Temp Pulse Resp B/P (MAP) Pulse Ox O2 Delivery O2 Flow Rate FiO2 01/20/25 10:36 119/73 01/20/25 10:18 79 28 100 30 01/20/25 07:33 97.7 97.7 01/20/25 05:49 Mechanical Ventilator+ 0 Total Intake and Output 01/19/25 01/19/25 01/20/25 15:00 23:00 07:00 Intake Total 939.415 ml 1754.865 ml 1414.315 ml Output Total 125 ml 550 ml Balance 939.415 ml 1629.865 ml 864.315 ml medications Current Medications Medications Dose Ordered Sig/Natividad Route Start Time Stop Time Status Last Admin Dose Admin Propofol 100 ml @ 3.015 mls/ hr Q24H IV 01/19/25 11:15 01/19/25 22:51 12.06 MLS/HR Midazolam HCl 50 ml @ 1 mls/hr Q24H IV 01/19/25 11:15 01/20/25 10:36 1 MLS/HR Fentanyl Citrate 250 ml @ 2.5 mls/hr Q24H IV 01/19/25 11:15 01/20/25 03:00 27.5 MLS/HR Vancomycin HCl 0 ml @ 0 mls/hr UD IV 01/19/25 13:00 Meropenem 50 ml @ 17 mls/hr Q12HR IV 01/19/25 22:00 01/19/25 22:00 17 MLS/HR Pantoprazole Sodium 40 mg BID IV 01/19/25 22:00 01/20/25 10:11 40 MG Vasopressin 20 units/Sodium Chloride 100 ml @ 9 mls/hr Q11H7M IV 01/19/25 13:00 01/19/25 23:42 9 MLS/HR Furosemide 60 mg BIDD IV 01/19/25 18:00 01/20/25 05:36 60 MG Thiamine HCl 100 mg DAILY IV 01/20/25 10:00 01/20/25 10:10 100 MG Folic Acid 1 mg/ Dextrose 50.2 ml @ 200.8 mls/ hr DAILY INJ 01/20/25 10:00 01/20/25 10:49 200.8 MLS/HR Polyethylene Glycol 17 gm DAILY PO 01/20/25 10:00 01/20/25 10:12 17 GM Diagnostic Test (Pha) 1 strip IQ4HR 01/19/25 16:00 01/20/25 03:54 1 STRIP Dextrose 50 ml UD PRN IV 01/19/25 13:15 Insulin Human Lispro Q4HR SC 01/19/25 14:00 01/20/25 10:33 1 UNITS Hydrocortisone Sodium Succinate 50 mg Q6HR IV 01/20/25 00:00 01/20/25 05:35 50 MG Norepinephrine Bitartrate 250 ml @ 3.75 mls/hr Q24H IV 01/19/25 20:15 01/20/25 00:34 22.5 MLS/HR Sodium Bicarbonate 100 ml/Sodium Chloride 1,100 ml @ 85 mls/hr [id number] IV 01/19/25 21:30 01/20/25 10:12 85 MLS/HR Amiodarone HCl 200 mg Q12HR PO 01/20/25 10:00 01/20/25 10:13 200 MG objective Gen: nad may intubate heent: nc/at, mmm lungs: cta anteriorly cvs: no rub abd: soft, bowel sounds audible ext: + edema laboratory and microbiology Laboratory Tests 01/20/25 03:17 Test 01/20/25 03:17 Range/Units Serum Glucose 154 H 74-106 mg/dL Assessment/Plan 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 Bilateral inguinal hernias extending into the scrotum Severe lumbar disc disease Congestive heart failure Thrombocytopenia - dialysis for solute removal - will continue to evaluate daily Plan discussed with: Other MARK DOYLE MD Jan 20, 2025 10:56
[2025-01-20] MEDS: INSULIN LISPRO (HUMAN) 100 UNITS/ML ML SC SCH (12:25)
[2025-01-20 13:53] LABS: Hepatitis B Surface Antigen Negative (Negative); Hepatitis C Antibody Negative (Negative)
[2025-01-20] MEDS: SODIUM CHL 0.9% 1000 ML BAG XX ONE (14:30)
--- NOTE | 2025-01-20 14:40 | DVH ---
EXAM: XY CHEST XRAY 1 VIEW HISTORY: DIALYSIS CATHETER RIGHT IJ NEW INSERTION COMPARISON: XY CHEST XRAY 1 VIEW on DOS: 01/20/25, XY CHEST PORTABLE on DOS: 01/19/25, XY CHEST PORTABL E on DOS: 01/19/25, XY CHEST XRAY 1 VIEW on DOS: 01/19/25, XY CHEST XRAY 1 VIEW on DOS: 01/19/25 TECHNIQUE: Portable upright AP view of the chest was performed. FINDINGS: There is an endotracheal tube with its tip 3.2 cm above the vin. There is an OG tube with its tip distal to the GE junction, not imaged here. Left IJ central line is re-identified with its tip in the right atrium. There is a new right IJ swan-Gian catheter with its tip in the upper SVC. There is lef t basilar infiltrate and/or effusion. The right costophrenic angle is not imaged here. There is mild Central interstitial prominence. No pneumothorax. The heart is enlarged. IMPRESSION: 1. Right IJ swan-Gian catheter with its tip in the upper SVC, without pneumothorax. 2. Mechanical ventilation with other tubes and lines as above. 3. Left basilar infiltrate and/or effusion, stable. 4. Cardiomegaly with central interstitial prominence which may be due to reactive airways disease or mild CHF.
--- NOTE | 2025-01-20 15:30 | DVHNC2 ---
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
--- NOTE | 2025-01-20 19:31 | DVHPNRES ---
Progress Note Date Seen: Jan 20, 2025 Resident Creating Document: NASREEN CARRILLO RESIDENT Medical Necessity Reason Pt with a Central, PICC or Fol: Yes The following are medically ne: Young Catheter Reason for young catheter: Strict I&O Subjective Review of Systems Patient was seen and examined on the bedside. He is on mechanical ventilation with FiO2 30%, peep 5, tidal volume 500, respiratory rate 28. Patient received 2 units of platelets, FFP 1 and 1 unit of PRBC. CBC revealed H and H 12.2/35.5 and platelet count 30. Urine output 600 mL, BUN/ creatinine elevated to 85/6.49, nephrology recommended hemodialysis and patient underwent hemodialysis today. Blood culture showed salmonella bacteremia. Objective vital signs Vital Sign Date Time Temp Pulse Resp B/P (MAP) Pulse Ox O2 Delivery O2 Flow Rate FiO2 01/20/25 18:22 82 28 129/71 (90) 90 30 01/20/25 10:00 Mechanical Ventilator+ 01/20/25 10:00 0 01/20/25 10:00 99.3 99.3 Total Intake and Output 01/19/25 01/19/25 01/20/25 15:00 23:00 07:00 Intake Total 939.415 ml 1754.865 ml 1414.315 ml Output Total 125 ml 550 ml Balance 939.415 ml 1629.865 ml 864.315 ml medications Current Medications Medications Dose Ordered Sig/Natividad Route Start Time Stop Time Status Last Admin Dose Admin Propofol 100 ml @ 3.015 mls/ hr Q24H IV 01/19/25 11:15 01/19/25 22:51 12.06 MLS/HR Midazolam HCl 50 ml @ 1 mls/hr Q24H IV 01/19/25 11:15 01/20/25 15:07 11 MLS/HR Fentanyl Citrate 250 ml @ 2.5 mls/hr Q24H IV 01/19/25 11:15 01/20/25 12:02 27.5 MLS/HR Vancomycin HCl 0 ml @ 0 mls/hr UD IV 01/19/25 13:00 Meropenem 50 ml @ 17 mls/hr Q12HR IV 01/19/25 22:00 01/20/25 12:03 17 MLS/HR Pantoprazole Sodium 40 mg BID IV 01/19/25 22:00 01/20/25 10:11 40 MG Vasopressin 20 units/Sodium Chloride 100 ml @ 9 mls/hr Q11H7M IV 01/19/25 13:00 01/20/25 12:19 9 MLS/HR Furosemide 60 mg BIDD IV 01/19/25 18:00 01/20/25 05:36 60 MG Thiamine HCl 100 mg DAILY IV 01/20/25 10:00 01/20/25 10:10 100 MG Folic Acid 1 mg/ Dextrose 50.2 ml @ 200.8 mls/ hr DAILY INJ 01/20/25 10:00 01/20/25 10:49 200.8 MLS/HR Polyethylene Glycol 17 gm DAILY PO 01/20/25 10:00 01/20/25 10:12 17 GM Diagnostic Test (Pha) 1 strip IQ4HR 01/19/25 16:00 01/20/25 12:00 1 STRIP Dextrose 50 ml UD PRN IV 01/19/25 13:15 Hydrocortisone Sodium Succinate 50 mg Q6HR IV 01/20/25 00:00 01/20/25 12:14 50 MG Norepinephrine Bitartrate 250 ml @ 3.75 mls/hr Q24H IV 01/19/25 20:15 01/20/25 00:34 22.5 MLS/HR Sodium Bicarbonate 100 ml/Sodium Chloride 1,100 ml @ 85 mls/hr [id number] IV 01/19/25 21:30 01/20/25 10:12 85 MLS/HR Amiodarone HCl 200 mg Q12HR PO 01/20/25 10:00 01/20/25 10:13 200 MG Insulin Human Lispro IQ4HR SC 01/20/25 12:25 Examination General: RASS -3, afebrile, mucosae are moist Cardiovascular: Normal S1 and S2, distant heart sound Respiratory: Mechanically assisted ventilation, equal bilateral airway entree. Clear lung sounds on auscultation Abdomen: Soft, nontender, no organomegaly, normal bowel sounds MSK/skin: Mobilization of limbs cannot be evaluated. Skin is dry and warm. Neurological: Orientation cannot be assessed. No apparent motor no sensitive deficits. Pupils are isocoric and reactive laboratory and microbiology Laboratory Tests 01/20/25 03:17 Test 01/20/25 03:17 Range/Units Serum Glucose 154 H 74-106 mg/dL Microbiology Date/Time Source Procedure Growth Status 01/19/25 20:17 Nose MRSA Screen - Final Complete 01/19/25 10:43 Sputum Gram Stain Pending Resulted 01/19/25 10:43 Sputum Respiratory Culture - Preliminary Resulted 01/18/25 06:30 Blood Blood Culture - Preliminary Salmonella species Resulted 01/18/25 06:08 Voided Urine Urine Culture - Final Complete Labs and/or images reviewed: Labs reviewed by me, Image(s) reviewed by me Problem List/Assessment/Plan Problem List/Assessment/Plan Assessment and plan: NEURO: Acute metabolic versus toxic encephalopathy On mechanical ventilation CARDIOVASCULAR: Septic versus hemorrhagic shock Supraventricular tachycardia AFib with RVR, currently on sinus rhythm Possible Acute on chronic systolic heart failure - chest x-ray revealed cardiomegaly, pulmonary vascular congestion and left- sided pleural effusion - cardiology on board - discontinued IV amiodarone and converted to oral amiodarone 200 mg b.i.d. - hold rate control because patient is on pressor - IV Lasix 60 mg b.i.d. - IV hydrocortisone 50 mg q.6 hours - echo showed EF 45% with severe pulmonary hypertension, RVSP 64 mm Hg PULMONARY: Acute hypoxic respiratory failure required mechanical ventilation Possible KAYY/OHS Severe Pulmonary hypertension, RVSP 64 mm hg GASTROINTESTINAL: Alcoholic liver cirrhosis Portal hypertension secondary to cirrhosis Hyperbilirubinemia with transaminitis secondary to shock/cirrhosis severe thrombocytopenia - Patient received 2 unit of platelets, 1 unit of PRBC and 1 unit of FFP - GI on board - IV Protonix 40 mg b.i.d GENITOURINARY: JOSE /ATN possible on CKD, secondary to hemodynamically mediated - nephrology on board - got 1 session of hemodialysis today ENDOCRINE: Thyroid nodule - Thyroid ultrasound demonstrated 3.2 cm right thyroid nodule - consider biopsy when patient become more stable METABOLIC: Anion gap metabolic acidosis likely secondary to ATN Obesity, BMI 33.8 kg/m2 HEME: Severe thrombocytopenia 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 INFECTIOUS DISEASE: Salmonella bacteremia Septic shock - treated empirically with IV vancomycin as per pharmacy, IV meropenem 500 g q.12 hours MUSCULOSKELETAL: Chronic back pain - CT of abdomen pelvis demonstrated Severe lumbar degenerative disc disease and facet arthropathy with multilevel significant neural foraminal stenosis bilaterally DERMATOLOGY: Multiple bruises likely due to thrombocytopenia DIET: NPO DVT prophylax: Hold due to thrombocytopenia GI prophylaxis: PPI Bowel regimen: Code status: Full code LINES/DRAINS/ACCESS: ETT: Intubated on IV access: Left IJ central line placed on 01/19/2025, right IJ Andre catheter placed on 01/20/2025, right arterial line placed on 0 01/19/25 Drips: Vasopressin, fentanyl, Versed, propofol Young catheter: Placed on 01/19/2025 DISPOSITION: ICU Patient's status discussed with Family Critical care time spent more than 73 minutes, including patient care, chart review, and updating the family. Excluding any procedures. Case discussed with Dr. Chadwick Plan discussed with: Other (Family, RN) My Orders My Orders Orders - NASREEN CARRILLO Procedure Category Date Status Time Norepinephrine 8 PHA 01/19/25 In Process Mg/250ml Kit 20:15 Vancomycin,Random LAB 01/21/25 Verified 05:00 Creatinine LAB 01/21/25 Verified 05:00 Date of Service: Jan 20, 2025 Billing Provider: PINA CHADWICK MD Common Visit Codes: [id number] CARE 30-74 MIN NASREEN CARRILLO Jan 20, 2025 19:31 PINA CHADWICK MD Jan 24, 2025 20:07
--- NOTE | 2025-01-20 21:50 | DVHPN2 ---
Progress Note - Dictate Date Seen: Jan 20, 2025 Medical Necessity Reason Pt with a Central, PICC or Fol: Yes The following are medically ne: Young Catheter Reason for young catheter: Strict I&O Subjective Patient was seen and examined on the bedside. He is on mechanical ventilation with FiO2 30%, peep 5, tidal volume 500, respiratory rate 28. Patient received 2 units of platelets, FFP 1 and 1 unit of PRBC. CBC revealed H and H 12.2/35.5 and platelet count 30. Urine output 600 mL, BUN/ creatinine elevated to 85/6.49, patient underwent hemodialysis today. Blood culture showed salmonella bacteremia. vital signs Vital Sign Date Time Temp Pulse Resp B/P (MAP) Pulse Ox O2 Delivery O2 Flow Rate FiO2 01/20/25 20:30 28 92 Mechanical Ventilator+ 45 45 01/20/25 20:30 80 01/20/25 20:14 127/71 (89) 01/20/25 10:00 0 01/20/25 10:00 99.3 99.3 Total Intake and Output 01/19/25 01/19/25 01/20/25 15:00 23:00 07:00 Intake Total 939.415 ml 1754.865 ml 1563.475 ml Output Total 125 ml 550 ml Balance 939.415 ml 1629.865 ml 1013.475 ml medications Current Medications Medications Dose Ordered Sig/Natividad Route Start Time Stop Time Status Last Admin Dose Admin Propofol 100 ml @ 3.015 mls/ hr Q24H IV 01/19/25 11:15 01/19/25 22:51 12.06 MLS/HR Midazolam HCl 50 ml @ 1 mls/hr Q24H IV 01/19/25 11:15 01/20/25 19:22 10 MLS/HR Fentanyl Citrate 250 ml @ 2.5 mls/hr Q24H IV 01/19/25 11:15 01/20/25 19:49 27.5 MLS/HR Vancomycin HCl 0 ml @ 0 mls/hr UD IV 01/19/25 13:00 Meropenem 50 ml @ 17 mls/hr Q12HR IV 01/19/25 22:00 01/20/25 12:03 17 MLS/HR Pantoprazole Sodium 40 mg BID IV 01/19/25 22:00 01/20/25 10:11 40 MG Vasopressin 20 units/Sodium Chloride 100 ml @ 9 mls/hr Q11H7M IV 01/19/25 13:00 01/20/25 12:19 9 MLS/HR Furosemide 60 mg BIDD IV 01/19/25 18:00 01/20/25 20:11 60 MG Thiamine HCl 100 mg DAILY IV 01/20/25 10:00 01/20/25 10:10 100 MG Folic Acid 1 mg/ Dextrose 50.2 ml @ 200.8 mls/ hr DAILY INJ 01/20/25 10:00 01/20/25 10:49 200.8 MLS/HR Polyethylene Glycol 17 gm DAILY PO 01/20/25 10:00 01/20/25 10:12 17 GM Diagnostic Test (Pha) 1 strip IQ4HR 01/19/25 16:00 01/20/25 20:00 1 STRIP Dextrose 50 ml UD PRN IV 01/19/25 13:15 Hydrocortisone Sodium Succinate 50 mg Q6HR IV 01/20/25 00:00 01/20/25 20:08 50 MG Norepinephrine Bitartrate 250 ml @ 3.75 mls/hr Q24H IV 01/19/25 20:15 01/20/25 00:34 22.5 MLS/HR Sodium Bicarbonate 100 ml/Sodium Chloride 1,100 ml @ 85 mls/hr [id number] IV 01/19/25 21:30 01/20/25 10:12 85 MLS/HR Amiodarone HCl 200 mg Q12HR PO 01/20/25 10:00 01/20/25 10:13 200 MG Insulin Human Lispro IQ4HR SC 01/20/25 12:25 01/20/25 19:57 1 UNITS objective General: Intubated sedated afebrile, mucosae are moist Cardiovascular: Normal S1 and S2, distant heart sound Respiratory: Mechanically assisted ventilation, Clear lung sounds on auscultation Abdomen: Soft, nontender, no organomegaly, normal bowel sounds laboratory and microbiology Laboratory Tests 01/20/25 03:17 Test 01/20/25 03:17 Range/Units Serum Glucose 154 H 74-106 mg/dL Problems(with codes): (1) UGIB (upper gastrointestinal bleed) (2) Sepsis, unspecified organism (3) Elevated liver enzymes (4) SVT (supraventricular tachycardia) (5) CHF (congestive heart failure) (6) Acute tubular necrosis Prognosis A/P Pt has Alcoholic liver cirrhosis Portal hypertension secondary to cirrhosis Hyperbilirubinemia with transaminitis secondary to shock/cirrhosis Severe thrombocytopenia - Patient received 2 unit of platelets, 1 unit of PRBC and 1 unit of FFP IV Protonix 40 mg b.i.d Monitor Serial H&H Transfuse if hemoglobin drops below eight ; transfer abuse platelets if platelets are less than 20 Hold Lovenox and blood thinners for now Liver workup with hepatitis panel YANDY ferritin Correct coagulopathy I will follow up patient with you closely and we will be standing by for an endoscopy if urgently indicated Prognosis remains guarded IV antibiotics for Salmonella sepsis Maru discrimination function is low patient does not need steroids Meld score is 26 points at this time monitor liver enzymes and ammonia level Plan discussed with: Other (ICU Nurse) PALMIRA OCHOA MD Jan 20, 2025 21:50
[2025-01-21] VITALS (106 sets, daily range): BP systolic 124–151; BP diastolic 64–89; PULSE 56–74; RESP 24–28; TEMP 96.6–99.1; O2SAT 90–99
[2025-01-21 03:43] LABS: Nucleated Red Blood Cells % 0.1 %
[2025-01-21 03:50] LABS: Hematocrit 31.3 % (41.0-53.0); Hemoglobin 11.0 g/dL (13.5-17.5); Mean Corpuscular Hemoglobin 29.8 pg (28.0-32.0); Mean Corpuscular Volume 85.2 fL (80.0-100.0)
[2025-01-21 04:03] LABS: Anion Gap 19 (5-15); BUN/Creatinine Ratio 14.9 (10.0-20.0); Carbon Dioxide 25 mmol/L (20-31); Sodium 140 mmol/L (136-145)
[2025-01-21 04:04] LABS: Alanine Aminotransferase 45 U/L (7-40); Albumin 2.8 g/dL (3.2-4.8); Alkaline Phosphatase 140 U/L (46-116); Bilirubin, Total 3.6 mg/dL (0.2-1.0); Blood Urea Nitrogen 78 mg/dL (9-23); Calcium 7.1 mg/dL (8.7-10.4); Chloride 96 mmol/L (98-107); Glucose 173 mg/dL (74-106); Potassium 3.5 mmol/L (3.5-5.1); Total Protein 4.6 g/dL (5.7-8.2)
--- NOTE | 2025-01-21 05:51 | DVH ---
CHEST RADIOGRAPH Indication: Mechanical ventilation Technique: Single frontal view of the chest was obtained COMPARISON: XY CHEST XRAY 1 VIEW on DOS: 01/20/25, XY CHEST XRAY 1 VIEW on DOS: 01/20/25, XY CHEST PORT ABLE on DOS: 01/19/25, XY CHEST PORTABLE on DOS: 01/19/25, XY CHEST XRAY 1 VIEW on DOS: 01/19/25 FINDINGS: Lines and Tubes: Unchanged. Lungs: Stable small left pleural effusion and mild diffuse increased prominence of the pulmonary vasc ulature. No pneumothorax. Cardiomediastinal contours: Cardiomegaly. Bones: Unremarkable IMPRESSION: 1. Cardiomegaly, small left pleural effusion and mild diffuse increased prominence of the pulmonary v asculature. 2. Lines and tubes unchanged.
[2025-01-21 07:54] LABS: Base Excess 0.2 mmol/L (-2.0-3.0)
--- NOTE | 2025-01-21 09:20 | DVHPN2 ---
Progress Note - Dictate Date Seen: Jan 21, 2025 Medical Necessity Reason Pt with a Central, PICC or Fol: Yes The following are medically ne: Young Catheter Reason for young catheter: Strict I&O Subjective Tolerated dialysis yesterday, approximately 2 L of ultrafiltration. Patient is seen in the ICU this morning. vital signs Vital Sign Date Time Temp Pulse Resp B/P (MAP) Pulse Ox O2 Delivery O2 Flow Rate FiO2 01/21/25 08:45 86/54 01/21/25 08:35 61 28 94 45 01/21/25 06:45 98.8 209.8 01/21/25 05:45 Mechanical Ventilator+ 0 Total Intake and Output 01/20/25 01/20/25 01/21/25 15:00 23:00 07:00 Intake Total 1322.64 ml 981.0 ml 1017.75 ml Output Total 550 ml Balance 1322.64 ml 981.0 ml 467.75 ml medications Current Medications Medications Dose Ordered Sig/Natividad Route Start Time Stop Time Status Last Admin Dose Admin Propofol 100 ml @ 3.015 mls/ hr Q24H IV 01/19/25 11:15 01/19/25 22:51 12.06 MLS/HR Midazolam HCl 50 ml @ 1 mls/hr Q24H IV 01/19/25 11:15 01/21/25 05:02 10 MLS/HR Fentanyl Citrate 250 ml @ 2.5 mls/hr Q24H IV 01/19/25 11:15 01/21/25 05:10 20 MLS/HR Vancomycin HCl 0 ml @ 0 mls/hr UD IV 01/19/25 13:00 Meropenem 50 ml @ 17 mls/hr Q12HR IV 01/19/25 22:00 01/20/25 22:00 17 MLS/HR Pantoprazole Sodium 40 mg BID IV 01/19/25 22:00 01/20/25 22:31 40 MG Vasopressin 20 units/Sodium Chloride 100 ml @ 9 mls/hr Q11H7M IV 01/19/25 13:00 01/20/25 12:19 9 MLS/HR Furosemide 60 mg BIDD IV 01/19/25 18:00 01/21/25 05:01 60 MG Thiamine HCl 100 mg DAILY IV 01/20/25 10:00 01/20/25 10:10 100 MG Folic Acid 1 mg/ Dextrose 50.2 ml @ 200.8 mls/ hr DAILY INJ 01/20/25 10:00 01/20/25 10:49 200.8 MLS/HR Polyethylene Glycol 17 gm DAILY PO 01/20/25 10:00 01/20/25 10:12 17 GM Diagnostic Test (Pha) 1 strip IQ4HR 01/19/25 16:00 01/21/25 08:18 1 STRIP Dextrose 50 ml UD PRN IV 01/19/25 13:15 Hydrocortisone Sodium Succinate 50 mg Q6HR IV 01/20/25 00:00 01/21/25 05:01 50 MG Norepinephrine Bitartrate 250 ml @ 3.75 mls/hr Q24H IV 01/19/25 20:15 01/20/25 00:34 22.5 MLS/HR Sodium Bicarbonate 100 ml/Sodium Chloride 1,100 ml @ 85 mls/hr [id number] IV 01/19/25 21:30 01/20/25 22:31 85 MLS/HR Amiodarone HCl 200 mg Q12HR PO 01/20/25 10:00 01/20/25 22:31 200 MG Insulin Human Lispro IQ4HR SC 01/20/25 12:25 01/21/25 08:18 1 UNITS objective Gen: nad may intubate heent: nc/at, mmm lungs: cta anteriorly cvs: no rub abd: soft, bowel sounds audible ext: + edema laboratory and microbiology Laboratory Tests 01/21/25 03:00 Test 01/21/25 03:00 Range/Units Serum Glucose 173 H 74-106 mg/dL Assessment/Plan 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 Bilateral inguinal hernias extending into the scrotum Severe lumbar disc disease Congestive heart failure Thrombocytopenia - metabolic parameters acceptable, stable hemodynamics this morning. - we will continue to evaluate daily for kidney replacement therapy needs. Plan discussed with: MARK Hamilton MD Jan 21, 2025 09:20
--- NOTE | 2025-01-21 09:26 | ECG ---
[facility] Test Date: 2025-01-19 Test Time: 08:04:49 Pat Name: OTIS RODRIGUEZ Department: Respiratoy Room: [address] [place] [address] Gender: M Patient Manager: ARGENIS : 1965 Requested By: JAEN PATTERSON Order Number: [id number] Reading MD: Juan Sloan Measurements Intervals [place] Rate: 124 P: -5 MS: 138 QRS: -6 QRSD: 99 T: 103 QT: 292 QTc: 420 Interpretive Statements Sinus tachycardia Atrial premature complex Nonspecific T abnormalities, lateral leads Electronically Signed On 01-25-2025 13:50:17 PDT by Juan Sloan Please click the below link to view image of tracing.
--- NOTE | 2025-01-21 12:37 | DVH ---
Right Upper Extremity Arterial Duplex Clinical History: Pain Comparison: None Technique: Duplex Doppler evaluation including color Doppler and spectral/pulsed waveform analysis of the upper extremity arteries was performed. Findings: RIGHT: Peak systolic velocities are as follows: Subclavian not visualized secondary to catheter in-situ. Axillary 61 cm/s Brachial 42 cm/s Radial 42 cm/s Ulnar 44 cm/s The waveforms are multiphasic. IMPRESSION: No hemodynamically significant stenosis based on peak systolic velocity criteria. REFERENCE VALUES, [facility] ([facility]) vascular Imaging Lab Criteria: Peak systolic velocity rang es (in cm/sec) are as follows: <150 cm/s - <20 % stenosis 150-200 cm/s - 20-49% stenosis 200-300 cm/s - 50-75% stenosis >300 cm/s -> 75% stenosis
[2025-01-21] MEDS: VANCOMYCIN 500mg/100mL 100 ML IV ONE (12:52)
[2025-01-21 13:34] LABS: Base Excess 0.4 mmol/L (-2.0-3.0)
--- NOTE | 2025-01-21 15:25 | DVHPN2 ---
Subjective The patient is seen and examined at bedside. The patient remained intubated. No event overnight. Reviewed: Care Plan, H&P, Labs, Medications, Previous Orders, Radiology Changes from previous H/P or p: No Changes Eyes: No Pain, No Vision change, No Conjunctivae inflammation, No Eyelid inflammation, No Other, No Redness ENT: No Ear pain, No Ear discharge, No Nose pain, No Nose discharge, No Nose congestion, No Mouth pain, No Mouth swelling, No Throat pain, No Throat swelling, No Other Cardiovascular: No Chest Pain, No Palpitations, No Orthopnea, No Paroxysmal Noc. Dyspnea, No Edema, No Lt Headedness, No Other Respiratory: No Cough, No Dry, No Shortness of breath, No SOB with excertion, No Wheezing, No Hemoptysis, No Pleuritic Pain, No Sputum, No Other Gastrointestinal: No Nausea, No Vomiting, No Abdominal Pain, No Diarrhea, No Constipation, No Melena, No Hematochezia, No Other Genitourinary: No Dysuria, No Frequency, No Incontinence, No Hematuria, No Retention, No Other Musculoskeletal: No other, No neck pain, No shoulder pain, No arm pain; back pain (low back); No hand pain, No leg pain, No foot pain Skin: No Rash, No Lesions, No Jaundice, No Bruising, No Other Objective Vitals Vital Signs Date Time Temp Pulse Resp B/P (MAP) Pulse Ox O2 Delivery O2 Flow Rate FiO2 01/21/25 14:13 62 24 142/77 (98) 98 45 01/21/25 14:00 Mechanical Ventilator+ 01/21/25 14:00 98.1 208.6 01/21/25 08:00 0 Intake/Output Intake and Output 01/21/25 07:00 Intake Total 3304.14 ml Output Total 550 ml Balance 2754.14 ml Intake Oral 30 ml IV Total 3023.14 ml Blood Product 251 ml Output Urine Total 550 ml Stool Total 0 ml General Appearance: Other (Intubated, on vent, unable to exam) HEENT: Atraumatic, Mucous membr. moist/pink Neck: Supple Lungs: Clear to auscultation, Normal air movement Cardiovascular: Regular rate, Normal S1, Normal S2, No murmurs, Gallops, Rubs Abdomen: Normal bowel sounds, Soft Medications Current Medications Medications Dose Ordered Sig/Natividad Route Start Time Stop Time Status Last Admin Dose Admin Propofol 100 ml @ 3.015 mls/ hr Q24H IV 01/19/25 11:15 01/19/25 22:51 12.06 MLS/HR Midazolam HCl 50 ml @ 1 mls/hr Q24H IV 01/19/25 11:15 01/21/25 15:04 10 MLS/HR Fentanyl Citrate 250 ml @ 2.5 mls/hr Q24H IV 01/19/25 11:15 01/21/25 05:10 20 MLS/HR Vancomycin HCl 0 ml @ 0 mls/hr UD IV 01/19/25 13:00 Meropenem 50 ml @ 17 mls/hr Q12HR IV 01/19/25 22:00 01/21/25 10:00 17 MLS/HR Pantoprazole Sodium 40 mg BID IV 01/19/25 22:00 01/21/25 09:59 40 MG Vasopressin 20 units/Sodium Chloride 100 ml @ 9 mls/hr Q11H7M IV 01/19/25 13:00 01/20/25 12:19 9 MLS/HR Furosemide 60 mg BIDD IV 01/19/25 18:00 01/21/25 05:01 60 MG Thiamine HCl 100 mg DAILY IV 01/20/25 10:00 01/21/25 10:00 100 MG Folic Acid 1 mg/ Dextrose 50.2 ml @ 200.8 mls/ hr DAILY INJ 01/20/25 10:00 01/21/25 10:03 200.8 MLS/HR Polyethylene Glycol 17 gm DAILY PO 01/20/25 10:00 01/21/25 10:01 17 GM Diagnostic Test (Pha) 1 strip IQ4HR 01/19/25 16:00 01/21/25 12:30 1 STRIP Dextrose 50 ml UD PRN IV 01/19/25 13:15 Hydrocortisone Sodium Succinate 50 mg Q6HR IV 01/20/25 00:00 01/21/25 12:29 50 MG Norepinephrine Bitartrate 250 ml @ 3.75 mls/hr Q24H IV 01/19/25 20:15 01/20/25 00:34 22.5 MLS/HR Sodium Bicarbonate 100 ml/Sodium Chloride 1,100 ml @ 85 mls/hr [id number] IV 01/19/25 21:30 01/21/25 12:30 85 MLS/HR Amiodarone HCl 200 mg Q12HR PO 01/20/25 10:00 01/21/25 10:01 200 MG Insulin Human Lispro IQ4HR SC 01/20/25 12:25 01/21/25 12:34 1 UNITS Laboratory Results Laboratory Tests 01/21/25 03:00 Chemistry Test 01/21/25 03:00 Albumin 2.8 g/dL (3.2-4.8) L Calcium Level 7.1 mg/dL (8.7-10.4) L Total Protein 4.6 g/dL (5.7-8.2) L LFT Test 01/21/25 03:00 Alanine Aminotransferase (ALT) 45 U/L (7-40) H Alkaline Phosphatase 140 U/L (46-116) H Aspartate Amino Transferase (AST) 46 U/L (13-40) H Total Bilirubin 3.6 mg/dL (0.2-1.0) H Urinalysis Test 01/18/25 06:08 Urine Color Yellow (Yellow) Urine Clarity Turbid (Clear) H Urine pH 6.0 (5.0-9.0) Urine Specific [place] 1.017 (1.001-1.035) Urine Protein 2+ (Negative) H Urine Ketones Negative (Negative) Urine Blood 2+ /uL (Negative) H Urine Nitrite Negative (Negative) Urine Bilirubin 1+ (Negative) Urine Urobilinogen 3 mg/dL (Negative) H Urine Leukocyte Esterase Negative /uL (Negative) Urine RBC 3 /hpf (0 - 3) Urine Microscopic WBC 4 /HPF (0-3) H Urine Squamous Epithelial Cells None seen /hpf (<5) Urine Bacteria None seen /hpf (None Seen) Urine Sperm Present /hpf (None Seen) Urine Glucose Normal mg/dL (Normal) Blood Gas Results Test 01/21/25 07:37 01/21/25 13:22 Arterial Blood pH 7.425 (7.350-7.450) 7.402 (7.350-7.450) FiO2 % 45.0 45.0 Microbiology Microbiology Date/Time Source Procedure Growth Status 01/19/25 20:17 Nose MRSA Screen - Final Complete 01/19/25 10:43 Sputum Gram Stain Pending Resulted 01/19/25 10:43 Respiratory Culture - Final Escherichia coli Resulted 01/18/25 06:30 Blood Blood Culture - Preliminary Salmonella species Resulted 01/18/25 06:08 Voided Urine Urine Culture - Final Complete Labs and/or images reviewed: Labs reviewed by me Assessment/Plan Assessment/Plan NEURO: Acute metabolic versus toxic encephalopathy On mechanical ventilation CARDIOVASCULAR: Septic versus hemorrhagic shock Supraventricular tachycardia AFib with RVR, currently on sinus rhythm Possible Acute on chronic systolic heart failure - chest x-ray revealed cardiomegaly, pulmonary vascular congestion and left- sided pleural effusion - cardiology on board - discontinued IV amiodarone and converted to oral amiodarone 200 mg b.i.d. - hold rate control because patient is on pressor - IV Lasix 60 mg b.i.d. - IV hydrocortisone 50 mg q.6 hours - echo showed EF 45% with severe pulmonary hypertension, RVSP 64 mm Hg PULMONARY: Acute hypoxic respiratory failure required mechanical ventilation Possible KAYY/OHS Severe Pulmonary hypertension, RVSP 64 mm hg GASTROINTESTINAL: Alcoholic liver cirrhosis Portal hypertension secondary to cirrhosis Hyperbilirubinemia with transaminitis secondary to shock/cirrhosis severe thrombocytopenia - Patient received 2 unit of platelets, 1 unit of PRBC and 1 unit of FFP - GI on board - IV Protonix 40 mg b.i.d GENITOURINARY: JOSE /ATN possible on CKD, secondary to hemodynamically mediated - nephrology on board - got 1 session of hemodialysis today ENDOCRINE: Thyroid nodule - Thyroid ultrasound demonstrated 3.2 cm right thyroid nodule - consider biopsy when patient become more stable METABOLIC: Anion gap metabolic acidosis likely secondary to ATN Obesity, BMI 33.8 kg/m2 HEME: Severe thrombocytopenia 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 INFECTIOUS DISEASE: Salmonella bacteremia Septic shock - treated empirically with IV vancomycin as per pharmacy, IV meropenem 500 g q.12 hours MUSCULOSKELETAL: Chronic back pain - CT of abdomen pelvis demonstrated Severe lumbar degenerative disc disease and facet arthropathy with multilevel significant neural foraminal stenosis bilaterally DERMATOLOGY: Multiple bruises likely due to thrombocytopenia DIET: NPO DVT prophylax: Hold due to thrombocytopenia GI prophylaxis: PPI Bowel regimen: Code status: Full code LINES/DRAINS/ACCESS: ETT: Intubated on IV access: Left IJ central line placed on 01/19/2025, right IJ Andre catheter placed on 01/20/2025, right arterial line placed on 0 01/19/25 Drips: Vasopressin, fentanyl, Versed, propofol Bates catheter: Placed on 01/19/2025 Continuing current management. Hopefully can extubate soon. Critical care spent for this case is 37 minute. This medical document was created using an electronic medical record system with [employer] direct computerized dictation system. Although this document has been carefully reviewed, there may still be some phonetic and typographical errors. These areas are purely typographical due to imperfections of the software programs, and do not reflect any compromise in the patient's medical care. Plan discussed with: Other (RN) Date of Service: Jan 21, 2025 Billing Provider: NEVAEH WALDEN MD Common Visit Codes: 90036-[id number] CARE 30-74 MIN NEVAEH WALDEN MD Jan 21, 2025 15:25
--- NOTE | 2025-01-21 19:11 | DVHPN2 ---
Subjective No cardiac events reported Sinus rhythm Remained intubated and sedated Changes from previous H/P or p: No Changes Eyes: No Pain, No Vision change, No Conjunctivae inflammation, No Eyelid inflammation, No Other, No Redness ENT: No Ear pain, No Ear discharge, No Nose pain, No Nose discharge, No Nose congestion, No Mouth pain, No Mouth swelling, No Throat pain, No Throat swelling, No Other Cardiovascular: No Chest Pain, No Palpitations, No Orthopnea, No Paroxysmal Noc. Dyspnea, No Edema, No Lt Headedness, No Other Respiratory: No Cough, No Dry, No Shortness of breath, No SOB with excertion, No Wheezing, No Hemoptysis, No Pleuritic Pain, No Sputum, No Other Gastrointestinal: No Nausea, No Vomiting, No Abdominal Pain, No Diarrhea, No Constipation, No Melena, No Hematochezia, No Other Genitourinary: No Dysuria, No Frequency, No Incontinence, No Hematuria, No Retention, No Other Musculoskeletal: No other, No neck pain, No shoulder pain, No arm pain; back pain (low back); No hand pain, No leg pain, No foot pain Skin: No Rash, No Lesions, No Jaundice, No Bruising, No Other Objective Vitals Vital Signs Date Time Temp Pulse Resp B/P (MAP) Pulse Ox O2 Delivery O2 Flow Rate FiO2 01/21/25 18:30 98.6 64 24 138/72 (94) 93 209.5 01/21/25 18:15 55 01/21/25 18:00 Mechanical Ventilator+ 01/21/25 08:00 0 Intake/Output Intake and Output 01/21/25 07:00 Intake Total 3304.14 ml Output Total 550 ml Balance 2754.14 ml Intake Oral 30 ml IV Total 3023.14 ml Blood Product 251 ml Output Urine Total 550 ml Stool Total 0 ml Lungs: Clear to auscultation Cardiovascular: Regular rate, Normal S2 Medications Current Medications Medications Dose Ordered Sig/Natividad Route Start Time Stop Time Status Last Admin Dose Admin Propofol 100 ml @ 3.015 mls/ hr Q24H IV 01/19/25 11:15 01/19/25 22:51 12.06 MLS/HR Midazolam HCl 50 ml @ 1 mls/hr Q24H IV 01/19/25 11:15 01/21/25 15:04 10 MLS/HR Fentanyl Citrate 250 ml @ 2.5 mls/hr Q24H IV 01/19/25 11:15 01/21/25 16:56 20 MLS/HR Vancomycin HCl 0 ml @ 0 mls/hr UD IV 01/19/25 13:00 Meropenem 50 ml @ 17 mls/hr Q12HR IV 01/19/25 22:00 01/21/25 10:00 17 MLS/HR Pantoprazole Sodium 40 mg BID IV 01/19/25 22:00 01/21/25 09:59 40 MG Vasopressin 20 units/Sodium Chloride 100 ml @ 9 mls/hr Q11H7M IV 01/19/25 13:00 01/20/25 12:19 9 MLS/HR Furosemide 60 mg BIDD IV 01/19/25 18:00 01/21/25 17:50 60 MG Thiamine HCl 100 mg DAILY IV 01/20/25 10:00 01/21/25 10:00 100 MG Folic Acid 1 mg/ Dextrose 50.2 ml @ 200.8 mls/ hr DAILY INJ 01/20/25 10:00 01/21/25 10:03 200.8 MLS/HR Polyethylene Glycol 17 gm DAILY PO 01/20/25 10:00 01/21/25 10:01 17 GM Diagnostic Test (Pha) 1 strip IQ4HR 01/19/25 16:00 01/21/25 15:58 1 STRIP Dextrose 50 ml UD PRN IV 01/19/25 13:15 Hydrocortisone Sodium Succinate 50 mg Q6HR IV 01/20/25 00:00 01/21/25 17:50 50 MG Norepinephrine Bitartrate 250 ml @ 3.75 mls/hr Q24H IV 01/19/25 20:15 01/20/25 00:34 22.5 MLS/HR Sodium Bicarbonate 100 ml/Sodium Chloride 1,100 ml @ 85 mls/hr [id number] IV 01/19/25 21:30 01/21/25 12:30 85 MLS/HR Amiodarone HCl 200 mg Q12HR PO 01/20/25 10:00 01/21/25 10:01 200 MG Insulin Human Lispro IQ4HR SC 01/20/25 12:25 01/21/25 16:00 2 UNITS Laboratory Results Laboratory Tests 01/21/25 03:00 Chemistry Test 01/21/25 03:00 Albumin 2.8 g/dL (3.2-4.8) L Calcium Level 7.1 mg/dL (8.7-10.4) L Total Protein 4.6 g/dL (5.7-8.2) L LFT Test 01/21/25 03:00 Alanine Aminotransferase (ALT) 45 U/L (7-40) H Alkaline Phosphatase 140 U/L (46-116) H Aspartate Amino Transferase (AST) 46 U/L (13-40) H Total Bilirubin 3.6 mg/dL (0.2-1.0) H Urinalysis Test 01/18/25 06:08 Urine Color Yellow (Yellow) Urine Clarity Turbid (Clear) H Urine pH 6.0 (5.0-9.0) Urine Specific [place] 1.017 (1.001-1.035) Urine Protein 2+ (Negative) H Urine Ketones Negative (Negative) Urine Blood 2+ /uL (Negative) H Urine Nitrite Negative (Negative) Urine Bilirubin 1+ (Negative) Urine Urobilinogen 3 mg/dL (Negative) H Urine Leukocyte Esterase Negative /uL (Negative) Urine RBC 3 /hpf (0 - 3) Urine Microscopic WBC 4 /HPF (0-3) H Urine Squamous Epithelial Cells None seen /hpf (<5) Urine Bacteria None seen /hpf (None Seen) Urine Sperm Present /hpf (None Seen) Urine Glucose Normal mg/dL (Normal) Blood Gas Results Test 01/21/25 07:37 01/21/25 13:22 Arterial Blood pH 7.425 (7.350-7.450) 7.402 (7.350-7.450) FiO2 % 45.0 45.0 Microbiology Microbiology Date/Time Source Procedure Growth Status 01/19/25 20:17 Nose MRSA Screen - Final Complete 01/19/25 10:43 Sputum Gram Stain Pending Resulted 01/19/25 10:43 Respiratory Culture - Final Escherichia coli Resulted 01/18/25 06:30 Blood Blood Culture - Preliminary Salmonella species Resulted 01/18/25 06:08 Voided Urine Urine Culture - Final Complete Assessment/Plan Assessment/Plan Problem List/Assessment/Plan Problem List/Assessment/Plan Atrial fibrillation with rapid ventricular response status post direct current cardioversion, now normal sinus rhythm Acute hypoxic respiratory failure Acute on chronic HFmrEF, NYHA class IV, newly diagnosed Septic versus hemorrhagic shock Severe thrombocytopenia Type 2 diabetes mellitus, newly diagnosed Pulmonary hypertension, severe degree Alcohol use disorder Upper GI bleed Transaminitis Acute kidney injury Liver cirrhosis Tobacco use History of methamphetamine use Morbid obesity Medical noncompliance Plan/Recommendations (Dr. Sloan): * Transthoracic echocardiogram reveals EF 45%, RVSP 64 mmHg * Unable to initiate guideline directed medical therapy for CHF given vasopressor support * Continue vasopressor therapy for hemodynamic support * ?[id number] VASc score: 1 point, HAS-BLED score: 3 points * Hold off anticoagulation given severe thrombocytopenia. Continue SCDs * Unable to initiate beta-diane given vasopressor therapy * Amiodarone, transitioned to oral * Monitor and replete electrolytes as needed * Closely monitor hemoglobin and hematocrit, transfuse as needed * Close Cardiac surveillance Thank you for allowing us to care for this patient. Please call with any questions or concerns. Plan discussed with: Patient, Other (RN) Date of Service: Jan 21, 2025 Billing Provider: NI SLOAN Sr., MD Common Visit Codes: CONSULT ONLY Consultation Codes: [id number] CONSULT <45MIN RACIEL BARRERA Jan 21, 2025 19:11
--- NOTE | 2025-01-21 22:47 | DVHPN2 ---
Progress Note - Dictate Date Seen: Jan 21, 2025 Medical Necessity Reason Pt with a Central, PICC or Fol: Yes The following are medically ne: Young Catheter Reason for young catheter: Strict I&O Subjective [facility] Patient seen and examined at bedside. Sedated, intubated on mechanical ventilator. Overnight events reviewed. vital signs Vital Sign Date Time Temp Pulse Resp B/P (MAP) Pulse Ox O2 Delivery O2 Flow Rate FiO2 01/21/25 22:03 57 24 138/69 (92) 92 55 01/21/25 18:45 98.6 209.5 01/21/25 18:00 Mechanical Ventilator+ 01/21/25 08:00 0 Total Intake and Output 01/20/25 01/20/25 01/21/25 15:00 23:00 07:00 Intake Total 1322.64 ml 981.0 ml 1000.5 ml Output Total 550 ml Balance 1322.64 ml 981.0 ml 450.5 ml medications Current Medications Medications Dose Ordered Sig/Natividad Route Start Time Stop Time Status Last Admin Dose Admin Propofol 100 ml @ 3.015 mls/ hr Q24H IV 01/19/25 11:15 01/19/25 22:51 12.06 MLS/HR Midazolam HCl 50 ml @ 1 mls/hr Q24H IV 01/19/25 11:15 01/21/25 20:39 10 MLS/HR Fentanyl Citrate 250 ml @ 2.5 mls/hr Q24H IV 01/19/25 11:15 01/21/25 16:56 20 MLS/HR Vancomycin HCl 0 ml @ 0 mls/hr UD IV 01/19/25 13:00 Meropenem 50 ml @ 17 mls/hr Q12HR IV 01/19/25 22:00 01/21/25 21:45 17 MLS/HR Pantoprazole Sodium 40 mg BID IV 01/19/25 22:00 01/21/25 21:45 40 MG Vasopressin 20 units/Sodium Chloride 100 ml @ 9 mls/hr Q11H7M IV 01/19/25 13:00 01/20/25 12:19 9 MLS/HR Furosemide 60 mg BIDD IV 01/19/25 18:00 01/21/25 17:50 60 MG Thiamine HCl 100 mg DAILY IV 01/20/25 10:00 01/21/25 10:00 100 MG Folic Acid 1 mg/ Dextrose 50.2 ml @ 200.8 mls/ hr DAILY INJ 01/20/25 10:00 01/21/25 10:03 200.8 MLS/HR Polyethylene Glycol 17 gm DAILY PO 01/20/25 10:00 01/21/25 10:01 17 GM Diagnostic Test (Pha) 1 strip IQ4HR 01/19/25 16:00 01/21/25 20:19 1 STRIP Dextrose 50 ml UD PRN IV 01/19/25 13:15 Hydrocortisone Sodium Succinate 50 mg Q6HR IV 01/20/25 00:00 01/21/25 17:50 50 MG Norepinephrine Bitartrate 250 ml @ 3.75 mls/hr Q24H IV 01/19/25 20:15 01/20/25 00:34 22.5 MLS/HR Sodium Bicarbonate 100 ml/Sodium Chloride 1,100 ml @ 85 mls/hr [id number] IV 01/19/25 21:30 01/21/25 12:30 85 MLS/HR Amiodarone HCl 200 mg Q12HR PO 01/20/25 10:00 01/21/25 21:45 200 MG Insulin Human Lispro IQ4HR SC 01/20/25 12:25 01/21/25 20:23 2 UNITS objective Gen.: Patient lying in bed in medical ICU. Sedated, intubated on mechanical ventilator. Head: Normocephalic, atraumatic. Eyes: PERRLA. Ears: Normal external anatomy. Throat: Endotracheal tube and orogastric tube in place. Neck: Supple, trachea midline. Chest: Transmitted breath sounds bilaterally. Decreased air entry bilaterally. No wheezing. Bibasilar crackles. Cardiovascular: Positive S1, positive S2. Regular rate and rhythm. Abdomen: Positive bowel sounds in all 4 quadrants. Soft, nontender, nondistended. : Young in place. Normal external genitalia. Rectal: Deferred. Skin: Warm, dry. Intact. Extremities: 2+ radial pulses bilaterally. No lower extremity edema. Neuro: Sedated. laboratory and microbiology Laboratory Tests 01/21/25 03:00 Test 01/21/25 03:00 Range/Units Serum Glucose 173 H 74-106 mg/dL Assessment/Plan Impression: Acute hypoxic respiratory failure On mechanical ventilator Sepsis ESRD, on hemodialysis Obesity, BMI 34.7 Plan: s/p intubation on mechanical ventilator. CXR image and report reviewed. Devices in place. Cardiomegaly, small left pleural effusion and mild diffuse increased prominence of the pulmonary vasculature. ABG reviewed, compensated. On AC mode; RR 28 --> 24, VT 500, PEEP 5, FiO2 45% Titrate FIO2 to keep O2 saturation above 90%. VAP bundle. Daily ABG and CXR while intubated Sedate for ventilator synchrony - On Versed, Fentanyl On bicarb drip. Continue antibiotics. Pressors as necessary for hemodynamic support. Titrate to keep MAP greater than 65 mmHg. Monitor hemoglobin, trending down. Accu-Cheks, ISS. HD per Nephrology Monitor renal function Monitor electrolytes. Supplement as necessary. Monitor ins and outs. Diet and lifestyle modifications for weight reduction Obesity - complicates all care GI/DVT prophylaxis. Prognosis: Poor given patient's multiple co-morbidities. Condition: Critical Rest of plan per hospitalist and other consultants. A total of 35 minutes of critical care time was spent reviewing the patient record, examining the patient, making a diagnostic and therapeutic plan, discussing this plan with the medical personnel, following up on diagnostic studies and following the patient for clinical stability excluding any and all procedures. At least 50% of this time was spent in direct, [id number] contact. Thank you Dr. Dai for allowing me to participate in this patient's care. Further recommendations will depend on the patient's clinical course. Please do not hesitate to contact me if you have any questions or concerns. This medical document was created using an electronic medical record system with [employer] dictation system. Although these documentations are being carefully reviewed, there may still be some phonetic and typographical changes. The errors are purely typographical, due to imperfection on the software program, and do not reflect any compromise in the patient's medical care. Plan discussed with: Other (RN) Critical Care Time(min): 35 TIM GE MD Jan 21, 2025 22:47
[2025-01-22] VITALS (106 sets, daily range): BP systolic 113–155; BP diastolic 65–92; PULSE 50–62; RESP 12–25; TEMP 96.8–99.5; O2SAT 87–97
[2025-01-22 07:22] LABS: Base Excess 5.5 mmol/L (-2.0-3.0)
[2025-01-22 09:58] LABS: Sodium 142 mmol/L (136-145)
[2025-01-22 09:59] LABS: Anion Gap 17 (5-15); Carbon Dioxide 29 mmol/L (20-31)
[2025-01-22 10:04] LABS: BUN/Creatinine Ratio 20.9 (10.0-20.0); Hemoglobin 10.7 g/dL (13.5-17.5); Nucleated Red Blood Cells % 0.1 %
[2025-01-22 10:06] LABS: Hematocrit 31.0 % (41.0-53.0); Mean Corpuscular Hemoglobin 29.3 pg (28.0-32.0); Mean Corpuscular Volume 85.1 fL (80.0-100.0)
[2025-01-22 10:14] LABS: Blood Urea Nitrogen 102 mg/dL (9-23); Calcium 7.5 mg/dL (8.7-10.4); Chloride 96 mmol/L (98-107); Glucose 217 mg/dL (74-106); Potassium 2.7 mmol/L (3.5-5.1)
[2025-01-22] MEDS: VANCOMYCIN 500mg/100mL 100 ML IV ONE (11:50)
--- NOTE | 2025-01-22 12:34 | DVHPN2 ---
Subjective The patient is seen and examined at bedside. The patient remained intubated. No event overnight. Reviewed: Care Plan, H&P, Labs, Medications, Previous Orders, Radiology Changes from previous H/P or p: No Changes Eyes: No Pain, No Vision change, No Conjunctivae inflammation, No Eyelid inflammation, No Other, No Redness ENT: No Ear pain, No Ear discharge, No Nose pain, No Nose discharge, No Nose congestion, No Mouth pain, No Mouth swelling, No Throat pain, No Throat swelling, No Other Cardiovascular: No Chest Pain, No Palpitations, No Orthopnea, No Paroxysmal Noc. Dyspnea, No Edema, No Lt Headedness, No Other Respiratory: No Cough, No Dry, No Shortness of breath, No SOB with excertion, No Wheezing, No Hemoptysis, No Pleuritic Pain, No Sputum, No Other Gastrointestinal: No Nausea, No Vomiting, No Abdominal Pain, No Diarrhea, No Constipation, No Melena, No Hematochezia, No Other Genitourinary: No Dysuria, No Frequency, No Incontinence, No Hematuria, No Retention, No Other Musculoskeletal: No other, No neck pain, No shoulder pain, No arm pain; back pain (low back); No hand pain, No leg pain, No foot pain Skin: No Rash, No Lesions, No Jaundice, No Bruising, No Other Objective Vitals Vital Signs Date Time Temp Pulse Resp B/P (MAP) Pulse Ox O2 Delivery O2 Flow Rate FiO2 01/22/25 11:44 58 24 140/83 (102) 93 55 01/22/25 10:00 Mechanical Ventilator+ 01/22/25 09:45 98.6 209.5 01/22/25 08:00 0 Intake/Output Intake and Output 01/22/25 07:00 Intake Total 2854.7 ml Output Total 3800 ml Balance -945.3 ml Intake Oral 110 ml IV Total 2744.7 ml Output Urine Total 3800 ml Stool Total 0 ml General Appearance: Other (Intubated, on vent, unable to exam) HEENT: Atraumatic, Mucous membr. moist/pink Neck: Supple Lungs: Clear to auscultation, Normal air movement Cardiovascular: Regular rate, Normal S1, Normal S2, No murmurs, Gallops, Rubs Abdomen: Normal bowel sounds, Soft Medications Current Medications Medications Dose Ordered Sig/Natividad Route Start Time Stop Time Status Last Admin Dose Admin Propofol 100 ml @ 3.015 mls/ hr Q24H IV 01/19/25 11:15 01/19/25 22:51 12.06 MLS/HR Midazolam HCl 50 ml @ 1 mls/hr Q24H IV 01/19/25 11:15 01/22/25 09:42 9 MLS/HR Fentanyl Citrate 250 ml @ 2.5 mls/hr Q24H IV 01/19/25 11:15 01/22/25 04:34 20 MLS/HR Vancomycin HCl 0 ml @ 0 mls/hr UD IV 01/19/25 13:00 Meropenem 50 ml @ 17 mls/hr Q12HR IV 01/19/25 22:00 01/22/25 09:40 17 MLS/HR Pantoprazole Sodium 40 mg BID IV 01/19/25 22:00 01/22/25 09:39 40 MG Vasopressin 20 units/Sodium Chloride 100 ml @ 9 mls/hr Q11H7M IV 01/19/25 13:00 01/20/25 12:19 9 MLS/HR Furosemide 60 mg BIDD IV 01/19/25 18:00 01/22/25 05:34 60 MG Thiamine HCl 100 mg DAILY IV 01/20/25 10:00 01/22/25 09:39 100 MG Folic Acid 1 mg/ Dextrose 50.2 ml @ 200.8 mls/ hr DAILY INJ 01/20/25 10:00 01/22/25 11:21 200.8 MLS/HR Polyethylene Glycol 17 gm DAILY PO 01/20/25 10:00 01/22/25 09:39 17 GM Diagnostic Test (Pha) 1 strip IQ4HR 01/19/25 16:00 01/22/25 08:11 1 STRIP Dextrose 50 ml UD PRN IV 01/19/25 13:15 Hydrocortisone Sodium Succinate 50 mg Q6HR IV 01/20/25 00:00 01/22/25 11:49 50 MG Norepinephrine Bitartrate 250 ml @ 3.75 mls/hr Q24H IV 01/19/25 20:15 01/20/25 00:34 22.5 MLS/HR Sodium Bicarbonate 100 ml/Sodium Chloride 1,100 ml @ 85 mls/hr [id number] IV 01/19/25 21:30 01/22/25 11:49 85 MLS/HR Amiodarone HCl 200 mg Q12HR PO 01/20/25 10:00 01/21/25 21:45 200 MG Insulin Human Lispro IQ4HR SC 01/20/25 12:25 01/22/25 08:12 2 UNITS Laboratory Results Laboratory Tests 01/22/25 02:50 Chemistry Test 01/22/25 02:50 Calcium Level 7.5 mg/dL (8.7-10.4) L Urinalysis Test 01/18/25 06:08 Urine Color Yellow (Yellow) Urine Clarity Turbid (Clear) H Urine pH 6.0 (5.0-9.0) Urine Specific [place] 1.017 (1.001-1.035) Urine Protein 2+ (Negative) H Urine Ketones Negative (Negative) Urine Blood 2+ /uL (Negative) H Urine Nitrite Negative (Negative) Urine Bilirubin 1+ (Negative) Urine Urobilinogen 3 mg/dL (Negative) H Urine Leukocyte Esterase Negative /uL (Negative) Urine RBC 3 /hpf (0 - 3) Urine Microscopic WBC 4 /HPF (0-3) H Urine Squamous Epithelial Cells None seen /hpf (<5) Urine Bacteria None seen /hpf (None Seen) Urine Sperm Present /hpf (None Seen) Urine Glucose Normal mg/dL (Normal) Blood Gas Results Test 01/21/25 13:22 01/22/25 07:12 Arterial Blood pH 7.402 (7.350-7.450) 7.486 (7.350-7.450) FiO2 % 45.0 55.0 Microbiology Microbiology Date/Time Source Procedure Growth Status 01/19/25 20:17 Nose MRSA Screen - Final Complete 01/19/25 10:43 Sputum Gram Stain Pending Resulted 01/19/25 10:43 Respiratory Culture - Final Escherichia coli Resulted 01/18/25 06:30 Blood Blood Culture - Preliminary Salmonella species Resulted 01/18/25 06:08 Voided Urine Urine Culture - Final Complete Labs and/or images reviewed: Labs reviewed by me Assessment/Plan Assessment/Plan NEURO: Acute metabolic versus toxic encephalopathy On mechanical ventilation CARDIOVASCULAR: Septic versus hemorrhagic shock Supraventricular tachycardia AFib with RVR, currently on sinus rhythm Possible Acute on chronic systolic heart failure - chest x-ray revealed cardiomegaly, pulmonary vascular congestion and left- sided pleural effusion - cardiology on board - discontinued IV amiodarone and converted to oral amiodarone 200 mg b.i.d. - hold rate control because patient is on pressor - IV Lasix 60 mg b.i.d. - IV hydrocortisone 50 mg q.6 hours - echo showed EF 45% with severe pulmonary hypertension, RVSP 64 mm Hg PULMONARY: Acute hypoxic respiratory failure required mechanical ventilation Possible KAYY/OHS Severe Pulmonary hypertension, RVSP 64 mm hg GASTROINTESTINAL: Alcoholic liver cirrhosis Portal hypertension secondary to cirrhosis Hyperbilirubinemia with transaminitis secondary to shock/cirrhosis severe thrombocytopenia - Patient received 2 unit of platelets, 1 unit of PRBC and 1 unit of FFP - GI on board - IV Protonix 40 mg b.i.d GENITOURINARY: JOSE /ATN possible on CKD, secondary to hemodynamically mediated - nephrology on board - got 1 session of hemodialysis today ENDOCRINE: Thyroid nodule - Thyroid ultrasound demonstrated 3.2 cm right thyroid nodule - consider biopsy when patient become more stable METABOLIC: Anion gap metabolic acidosis likely secondary to ATN Obesity, BMI 33.8 kg/m2 HEME: Severe thrombocytopenia 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 INFECTIOUS DISEASE: Salmonella bacteremia Septic shock - treated empirically with IV vancomycin as per pharmacy, IV meropenem 500 g q.12 hours MUSCULOSKELETAL: Chronic back pain - CT of abdomen pelvis demonstrated Severe lumbar degenerative disc disease and facet arthropathy with multilevel significant neural foraminal stenosis bilaterally DERMATOLOGY: Multiple bruises likely due to thrombocytopenia DIET: NPO DVT prophylax: Hold due to thrombocytopenia GI prophylaxis: PPI Bowel regimen: Code status: Full code LINES/DRAINS/ACCESS: ETT: Intubated on IV access: Left IJ central line placed on 01/19/2025, right IJ Andre catheter placed on 01/20/2025, right arterial line placed on 0 01/19/25 Drips: Vasopressin, fentanyl, Versed, propofol Bates catheter: Placed on 01/19/2025 Continuing current management. K is 2.7. Will give 80meq of KCl Hopefully can extubate soon. Critical care spent for this case is 37 minute. This medical document was created using an electronic medical record system with [employer] direct computerized dictation system. Although this document has been carefully reviewed, there may still be some phonetic and typographical errors. These areas are purely typographical due to imperfections of the software programs, and do not reflect any compromise in the patient's medical care. Plan discussed with: Other (RN) Date of Service: Jan 22, 2025 Billing Provider: NEVAEH WALDEN MD Common Visit Codes: [id number] CARE 30-74 MIN NEVAEH WALDEN MD Jan 22, 2025 12:34
--- NOTE | 2025-01-22 13:42 | DVHPN2 ---
Progress Note - Dictate Date Seen: Jan 22, 2025 Medical Necessity Reason Pt with a Central, PICC or Fol: Yes The following are medically ne: Young Catheter Reason for young catheter: Strict I&O Subjective Remains intubated, urine volumes nonoliguric vital signs Vital Sign Date Time Temp Pulse Resp B/P (MAP) Pulse Ox O2 Delivery O2 Flow Rate FiO2 01/22/25 12:45 99.3 62 20 132/79 (96) 93 210.7 01/22/25 12:00 Mechanical Ventilator+ 55 55 01/22/25 08:00 0 Total Intake and Output 01/21/25 01/21/25 01/22/25 15:00 23:00 07:00 Intake Total 989.7 ml 835 ml 1030 ml Output Total 1575 ml 2225 ml Balance 989.7 ml -740 ml -1195 ml medications Current Medications Medications Dose Ordered Sig/Natividad Route Start Time Stop Time Status Last Admin Dose Admin Propofol 100 ml @ 3.015 mls/ hr Q24H IV 01/19/25 11:15 01/19/25 22:51 12.06 MLS/HR Midazolam HCl 50 ml @ 1 mls/hr Q24H IV 01/19/25 11:15 01/22/25 09:42 9 MLS/HR Fentanyl Citrate 250 ml @ 2.5 mls/hr Q24H IV 01/19/25 11:15 01/22/25 04:34 20 MLS/HR Vancomycin HCl 0 ml @ 0 mls/hr UD IV 01/19/25 13:00 Meropenem 50 ml @ 17 mls/hr Q12HR IV 01/19/25 22:00 01/22/25 09:40 17 MLS/HR Pantoprazole Sodium 40 mg BID IV 01/19/25 22:00 01/22/25 09:39 40 MG Vasopressin 20 units/Sodium Chloride 100 ml @ 9 mls/hr Q11H7M IV 01/19/25 13:00 01/20/25 12:19 9 MLS/HR Furosemide 60 mg BIDD IV 01/19/25 18:00 01/22/25 05:34 60 MG Thiamine HCl 100 mg DAILY IV 01/20/25 10:00 01/22/25 09:39 100 MG Folic Acid 1 mg/ Dextrose 50.2 ml @ 200.8 mls/ hr DAILY INJ 01/20/25 10:00 01/22/25 11:21 200.8 MLS/HR Polyethylene Glycol 17 gm DAILY PO 01/20/25 10:00 01/22/25 09:39 17 GM Diagnostic Test (Pha) 1 strip IQ4HR 01/19/25 16:00 01/22/25 12:44 1 STRIP Dextrose 50 ml UD PRN IV 01/19/25 13:15 Hydrocortisone Sodium Succinate 50 mg Q6HR IV 01/20/25 00:00 01/22/25 11:49 50 MG Norepinephrine Bitartrate 250 ml @ 3.75 mls/hr Q24H IV 01/19/25 20:15 01/20/25 00:34 22.5 MLS/HR Sodium Bicarbonate 100 ml/Sodium Chloride 1,100 ml @ 85 mls/hr [id number] IV 01/19/25 21:30 01/22/25 11:49 85 MLS/HR Amiodarone HCl 200 mg Q12HR PO 01/20/25 10:00 01/21/25 21:45 200 MG Insulin Human Lispro IQ4HR SC 01/20/25 12:25 01/22/25 12:44 2 UNITS objective Gen: nad may intubate heent: nc/at, mmm lungs: cta anteriorly cvs: no rub abd: soft, bowel sounds audible ext: + edema laboratory and microbiology Laboratory Tests 01/22/25 02:50 Test 01/22/25 02:50 Range/Units Serum Glucose 217 H 74-106 mg/dL Assessment/Plan 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 Bilateral inguinal hernias extending into the scrotum Severe lumbar disc disease Congestive heart failure Thrombocytopenia - we will discontinue sodium bicarb drip - hypokalemia multifactorial - 4 K bath with dialysis Dietary Evaluation Review Comments: 1) Initiate Nephro-Haritha @ 1 tb qd 2) If patient remains NPO > 7 days, consider EN/TPN to meet at least 75% of estimated daily needs 3) If GI route is preferred, consider Nepro CarbSteady @ 30 mL/hr goal rate as tolerated. EN regimen will provide 1296 kcals. 58g Pro, and 523 mL free H2O per 24 hrs. Goal rate will meet ~ 92% estimated daily energy needs and ~ 43% estimated daily protein needs. 4) Advance to 60g CCHO renal diet when medically feasible, pending ST approal 5) Refer to outpatient RD/CDCES for weight management 6) Follow-up with cardiology, pulmonology, nephrology, gastroenterology, and hepatology 7) Follow-up with community mental health social worker r/t polysubstance abuse 8) Continue to monitor I&O, labs, and skin integrity Expected Outcomes/Goals: 1) patient to receive nutrition support within 7 days of NPO status 2) labs and GI symptoms to improve 3) diet to advance 4) f/u in 2-3 days Plan discussed with: MARK Hamilton MD Jan 22, 2025 13:42
[2025-01-22] MEDS: POTASSIUM CHL 20MEQ/100ML 100 ML IV SCH ×2 (14:44→21:16)
--- NOTE | 2025-01-22 15:00 | MEDREC ---
[facility] Intervention Section I [facility] Intervention: Deescalate AB based on CS, Review courses of therapy (BLOOD CULTURE WITH SALMONELLA SPECIES PLEASE CONSIDER ID CONSULTATION PRELIMINARY RESULTS SHOW SUSCEPTIBILITY FOR AMPICILLIN AND TRIMETHOPRIM / SULFAMETHOXAZOLE FINAL SPUTUM CULTURE WITH E.COLI ALSO SUSCEPTIBLE TO AMPICILLIN AND TRIMETHOPRIM / SULFAMETHOXAZOLE ) KATHRYN YOUSSEF PHARMACIST Jan 22, 2025 15:00
--- NOTE | 2025-01-22 20:39 | DVHPN2 ---
Subjective No cardiac events reported Sinus rhythm Remained intubated and sedated Reviewed: Care Plan, H&P, Labs, Medications, Previous Orders, Radiology Changes from previous H/P or p: No Changes Eyes: No Pain, No Vision change, No Conjunctivae inflammation, No Eyelid inflammation, No Other, No Redness ENT: No Ear pain, No Ear discharge, No Nose pain, No Nose discharge, No Nose congestion, No Mouth pain, No Mouth swelling, No Throat pain, No Throat swelling, No Other Cardiovascular: No Chest Pain, No Palpitations, No Orthopnea, No Paroxysmal Noc. Dyspnea, No Edema, No Lt Headedness, No Other Respiratory: No Cough, No Dry, No Shortness of breath, No SOB with excertion, No Wheezing, No Hemoptysis, No Pleuritic Pain, No Sputum, No Other Gastrointestinal: No Nausea, No Vomiting, No Abdominal Pain, No Diarrhea, No Constipation, No Melena, No Hematochezia, No Other Genitourinary: No Dysuria, No Frequency, No Incontinence, No Hematuria, No Retention, No Other Musculoskeletal: No other, No neck pain, No shoulder pain, No arm pain; back pain (low back); No hand pain, No leg pain, No foot pain Skin: No Rash, No Lesions, No Jaundice, No Bruising, No Other Objective Vitals Vital Signs Date Time Temp Pulse Resp B/P (MAP) Pulse Ox O2 Delivery O2 Flow Rate FiO2 01/22/25 18:49 136/79 01/22/25 18:45 56 20 93 01/22/25 18:30 99.1 210.4 01/22/25 18:13 55 01/22/25 18:00 Mechanical Ventilator+ 01/22/25 08:00 0 Intake/Output Intake and Output 01/22/25 07:00 Intake Total 2854.7 ml Output Total 3800 ml Balance -945.3 ml Intake Oral 110 ml IV Total 2744.7 ml Output Urine Total 3800 ml Stool Total 0 ml General Appearance: Other (Intubated, on vent, unable to exam) HEENT: Atraumatic, Mucous membr. moist/pink Neck: Supple Lungs: Clear to auscultation, Normal air movement Cardiovascular: Regular rate, Normal S1, Normal S2, No murmurs, Gallops, Rubs Abdomen: Normal bowel sounds, Soft Medications Current Medications Medications Dose Ordered Sig/Natividad Route Start Time Stop Time Status Last Admin Dose Admin Propofol 100 ml @ 3.015 mls/ hr Q24H IV 01/19/25 11:15 01/19/25 22:51 12.06 MLS/HR Midazolam HCl 50 ml @ 1 mls/hr Q24H IV 01/19/25 11:15 01/22/25 18:43 10 MLS/HR Fentanyl Citrate 250 ml @ 2.5 mls/hr Q24H IV 01/19/25 11:15 01/22/25 14:29 20 MLS/HR Vancomycin HCl 0 ml @ 0 mls/hr UD IV 01/19/25 13:00 Meropenem 50 ml @ 17 mls/hr Q12HR IV 01/19/25 22:00 01/22/25 09:40 17 MLS/HR Pantoprazole Sodium 40 mg BID IV 01/19/25 22:00 01/22/25 09:39 40 MG Vasopressin 20 units/Sodium Chloride 100 ml @ 9 mls/hr Q11H7M IV 01/19/25 13:00 01/20/25 12:19 9 MLS/HR Furosemide 60 mg BIDD IV 01/19/25 18:00 01/22/25 05:34 60 MG Thiamine HCl 100 mg DAILY IV 01/20/25 10:00 01/22/25 09:39 100 MG Folic Acid 1 mg/ Dextrose 50.2 ml @ 200.8 mls/ hr DAILY INJ 01/20/25 10:00 01/22/25 11:21 200.8 MLS/HR Polyethylene Glycol 17 gm DAILY PO 01/20/25 10:00 01/22/25 09:39 17 GM Diagnostic Test (Pha) 1 strip IQ4HR 01/19/25 16:00 01/22/25 15:40 1 STRIP Dextrose 50 ml UD PRN IV 01/19/25 13:15 Hydrocortisone Sodium Succinate 50 mg Q6HR IV 01/20/25 00:00 01/22/25 17:24 50 MG Norepinephrine Bitartrate 250 ml @ 3.75 mls/hr Q24H IV 01/19/25 20:15 01/20/25 00:34 22.5 MLS/HR Amiodarone HCl 200 mg Q12HR PO 01/20/25 10:00 01/21/25 21:45 200 MG Insulin Human Lispro IQ4HR SC 01/20/25 12:25 01/22/25 15:40 2 UNITS Potassium Chloride 100 ml @ 50 mls/hr Q2H IV 01/22/25 21:00 01/23/25 00:59 Laboratory Results Laboratory Tests 01/22/25 02:50 Chemistry Test 01/22/25 02:50 Calcium Level 7.5 mg/dL (8.7-10.4) L Urinalysis Test 01/18/25 06:08 Urine Color Yellow (Yellow) Urine Clarity Turbid (Clear) H Urine pH 6.0 (5.0-9.0) Urine Specific [place] 1.017 (1.001-1.035) Urine Protein 2+ (Negative) H Urine Ketones Negative (Negative) Urine Blood 2+ /uL (Negative) H Urine Nitrite Negative (Negative) Urine Bilirubin 1+ (Negative) Urine Urobilinogen 3 mg/dL (Negative) H Urine Leukocyte Esterase Negative /uL (Negative) Urine RBC 3 /hpf (0 - 3) Urine Microscopic WBC 4 /HPF (0-3) H Urine Squamous Epithelial Cells None seen /hpf (<5) Urine Bacteria None seen /hpf (None Seen) Urine Sperm Present /hpf (None Seen) Urine Glucose Normal mg/dL (Normal) Blood Gas Results Test 01/22/25 07:12 Arterial Blood pH 7.486 (7.350-7.450) FiO2 % 55.0 Microbiology Microbiology Date/Time Source Procedure Growth Status 01/19/25 20:17 Nose MRSA Screen - Final Complete 01/19/25 10:43 Sputum Gram Stain - Final Complete 01/19/25 10:43 Respiratory Culture - Final Escherichia coli Complete 01/18/25 06:30 Blood Blood Culture - Preliminary Salmonella species Resulted 01/18/25 06:08 Voided Urine Urine Culture - Final Complete Assessment/Plan Assessment/Plan Problem List/Assessment/Plan Problem List/Assessment/Plan Atrial fibrillation with rapid ventricular response status post direct current cardioversion, now normal sinus rhythm Acute hypoxic respiratory failure Acute on chronic HFmrEF, NYHA class IV, newly diagnosed Septic versus hemorrhagic shock Severe thrombocytopenia Type 2 diabetes mellitus, newly diagnosed Pulmonary hypertension, severe degree Alcohol use disorder Upper GI bleed Transaminitis Acute kidney injury Liver cirrhosis Tobacco use History of methamphetamine use Morbid obesity Medical noncompliance Plan/Recommendations (Dr. Sloan): * Transthoracic echocardiogram reveals EF 45%, RVSP 64 mmHg * Unable to initiate guideline directed medical therapy for CHF given vasopressor support * Continue vasopressor therapy for hemodynamic support * ?[id number] VASc score: 1 point, HAS-BLED score: 3 points * Hold off anticoagulation given severe thrombocytopenia. Continue SCDs * Unable to initiate beta-diane given vasopressor therapy * Amiodarone, transitioned to oral * Monitor and replete electrolytes as needed * Closely monitor hemoglobin and hematocrit, transfuse as needed * Close Cardiac surveillance Thank you for allowing us to care for this patient. Please call with any questions or concerns. Plan discussed with: Patient Date of Service: Jan 22, 2025 Billing Provider: NI SLOAN Sr., MD Common Visit Codes: CONSULT ONLY Consultation Codes: [id number] CONSULT <45MIN RACIEL BARRERA Jan 22, 2025 20:38
--- NOTE | 2025-01-22 23:14 | DVHPN2 ---
Progress Note - Dictate Date Seen: Jan 22, 2025 Medical Necessity Reason Pt with a Central, PICC or Fol: Yes The following are medically ne: Young Catheter Reason for young catheter: Strict I&O Subjective [facility] Patient seen and examined at bedside. Sedated, intubated on mechanical ventilator. Overnight events reviewed. vital signs Vital Sign Date Time Temp Pulse Resp B/P (MAP) Pulse Ox O2 Delivery O2 Flow Rate FiO2 01/22/25 22:58 149/87 01/22/25 22:22 50 20 95 55 01/22/25 22:15 98.2 208.8 01/22/25 20:00 60.0 01/22/25 18:00 Mechanical Ventilator+ Total Intake and Output 01/21/25 01/21/25 01/22/25 15:00 23:00 07:00 Intake Total 989.7 ml 835 ml 1030 ml Output Total 1575 ml 2225 ml Balance 989.7 ml -740 ml -1195 ml medications Current Medications Medications Dose Ordered Sig/Natividad Route Start Time Stop Time Status Last Admin Dose Admin Propofol 100 ml @ 3.015 mls/ hr Q24H IV 01/19/25 11:15 01/19/25 22:51 12.06 MLS/HR Midazolam HCl 50 ml @ 1 mls/hr Q24H IV 01/19/25 11:15 01/22/25 22:58 10 MLS/HR Fentanyl Citrate 250 ml @ 2.5 mls/hr Q24H IV 01/19/25 11:15 01/22/25 14:29 20 MLS/HR Vancomycin HCl 0 ml @ 0 mls/hr UD IV 01/19/25 13:00 Meropenem 50 ml @ 17 mls/hr Q12HR IV 01/19/25 22:00 01/22/25 22:37 17 MLS/HR Pantoprazole Sodium 40 mg BID IV 01/19/25 22:00 01/22/25 22:37 40 MG Vasopressin 20 units/Sodium Chloride 100 ml @ 9 mls/hr Q11H7M IV 01/19/25 13:00 01/20/25 12:19 9 MLS/HR Furosemide 60 mg BIDD IV 01/19/25 18:00 01/22/25 05:34 60 MG Thiamine HCl 100 mg DAILY IV 01/20/25 10:00 01/22/25 09:39 100 MG Folic Acid 1 mg/ Dextrose 50.2 ml @ 200.8 mls/ hr DAILY INJ 01/20/25 10:00 01/22/25 11:21 200.8 MLS/HR Polyethylene Glycol 17 gm DAILY PO 01/20/25 10:00 01/22/25 09:39 17 GM Diagnostic Test (Pha) 1 strip IQ4HR 01/19/25 16:00 01/22/25 15:40 1 STRIP Dextrose 50 ml UD PRN IV 01/19/25 13:15 Hydrocortisone Sodium Succinate 50 mg Q6HR IV 01/20/25 00:00 01/22/25 17:24 50 MG Norepinephrine Bitartrate 250 ml @ 3.75 mls/hr Q24H IV 01/19/25 20:15 01/20/25 00:34 22.5 MLS/HR Amiodarone HCl 200 mg Q12HR PO 01/20/25 10:00 01/21/25 21:45 200 MG Insulin Human Lispro IQ4HR SC 01/20/25 12:25 01/22/25 21:16 2 UNITS Potassium Chloride 100 ml @ 50 mls/hr Q2H IV 01/22/25 21:00 01/23/25 00:59 01/22/25 21:16 50 MLS/HR objective Gen.: Patient lying in bed in medical ICU. Sedated, intubated on mechanical ventilator. Head: Normocephalic, atraumatic. Eyes: PERRLA. Ears: Normal external anatomy. Throat: Endotracheal tube and orogastric tube in place. Neck: Supple, trachea midline. Chest: Transmitted breath sounds bilaterally. Decreased air entry bilaterally. No wheezing. Bibasilar crackles. Cardiovascular: Positive S1, positive S2. Regular rate and rhythm. Abdomen: Positive bowel sounds in all 4 quadrants. Soft, nontender, nondistended. : Young in place. Normal external genitalia. Rectal: Deferred. Skin: Warm, dry. Intact. Extremities: 2+ radial pulses bilaterally. No lower extremity edema. Neuro: Sedated. laboratory and microbiology Laboratory Tests 01/22/25 02:50 Test 01/22/25 02:50 Range/Units Serum Glucose 217 H 74-106 mg/dL Assessment/Plan Impression: Acute hypoxic respiratory failure On mechanical ventilator Sepsis ESRD, on hemodialysis Obesity, BMI 34.7 Events: Remains on vent support Vent settings changed to AC mode; RR 24-->20, VT 500, PEEP 5-->8, FiO2 45-->55% Taper FiO2 as tolerated ABG reviewed, notable for alkalemia Sedated on Versed, Fentanyl drips. Continue antibiotics Bicarb drip at 85 ml/hr. Diurese to euvolemia Monitor renal function Monitor ins and outs - above 30 ml/hr. Labs and imaging reviewed. Rest of plan as noted below. Plan: s/p intubation on mechanical ventilator. Vent settings: AC mode; RR 20, VT 500, PEEP 8, FiO2 55% Titrate FIO2 to keep O2 saturation above 90%. VAP bundle. Daily ABG and CXR while intubated Sedate for ventilator synchrony - On Versed, Fentanyl On bicarb drip. Continue antibiotics. Pressors as necessary for hemodynamic support. Titrate to keep MAP greater than 65 mmHg. Monitor hemoglobin, trending down. Accu-Cheks, ISS. HD per Nephrology Monitor renal function Monitor electrolytes. Supplement as necessary. Monitor ins and outs. Diet and lifestyle modifications for weight reduction Obesity - complicates all care GI/DVT prophylaxis. Prognosis: Poor given patient's multiple co-morbidities. Condition: Critical Rest of plan per hospitalist and other consultants. A total of 35 minutes of critical care time was spent reviewing the patient record, examining the patient, making a diagnostic and therapeutic plan, discussing this plan with the medical personnel, following up on diagnostic studies and following the patient for clinical stability excluding any and all procedures. At least 50% of this time was spent in direct, [id number] contact. Thank you Dr. Dai for allowing me to participate in this patient's care. Further recommendations will depend on the patient's clinical course. Please do not hesitate to contact me if you have any questions or concerns. This medical document was created using an electronic medical record system with [employer] system. Although these documentations are being carefully reviewed, there may still be some phonetic and typographical changes. The errors are purely typographical, due to imperfection on the software program, and do not reflect any compromise in the patient's medical care. Dietary Evaluation Review Comments: 1) Initiate Nephro-Haritha @ 1 tb qd 2) If patient remains NPO > 7 days, consider EN/TPN to meet at least 75% of estimated daily needs 3) If GI route is preferred, consider Nepro CarbSteady @ 30 mL/hr goal rate as tolerated. EN regimen will provide 1296 kcals. 58g Pro, and 523 mL free H2O per 24 hrs. Goal rate will meet ~ 92% estimated daily energy needs and ~ 43% estimated daily protein needs. 4) Advance to 60g CCHO renal diet when medically feasible, pending ST approal 5) Refer to outpatient RD/CDCES for weight management 6) Follow-up with cardiology, pulmonology, nephrology, gastroenterology, and hepatology 7) Follow-up with social media intern r/t polysubstance abuse 8) Continue to monitor I&O, labs, and skin integrity Expected Outcomes/Goals: 1) patient to receive nutrition support within 7 days of NPO status 2) labs and GI symptoms to improve 3) diet to advance 4) f/u in 2-3 days Plan discussed with: Other (DENISSE Tanner) Critical Care Time(min): 35 TIM GE MD Jan 22, 2025 23:13
--- NOTE | 2025-01-22 23:57 | DVHPN2 ---
Progress Note - Dictate Date Seen: Jan 22, 2025 Medical Necessity Reason Pt with a Central, PICC or Fol: Yes The following are medically ne: Young Catheter Reason for young catheter: Strict I&O Subjective No new complaints, liver enzymes are trending down Mechanical ventilation with FiO2 30%, peep 5, tidal volume 500, respiratory rate 28. Patient received 2 units of platelets, FFP 1 and 1 unit of PRBC. CBC revealed H and H 12.2/35.5 and platelet count 30. Urine output 600 mL, BUN/ creatinine elevated to 102/4.27, patient underwent hemodialysis today. Blood culture showed salmonella bacteremia. vital signs Vital Sign Date Time Temp Pulse Resp B/P (MAP) Pulse Ox O2 Delivery O2 Flow Rate FiO2 01/22/25 23:15 97.7 52 20 138/85 (102) 87 207.9 01/22/25 22:22 55 01/22/25 20:00 60.0 01/22/25 18:00 Mechanical Ventilator+ Total Intake and Output 01/21/25 01/21/25 01/22/25 15:00 23:00 07:00 Intake Total 989.7 ml 835 ml 1030 ml Output Total 1575 ml 2225 ml Balance 989.7 ml -740 ml -1195 ml medications Current Medications Medications Dose Ordered Sig/Natividad Route Start Time Stop Time Status Last Admin Dose Admin Propofol 100 ml @ 3.015 mls/ hr Q24H IV 01/19/25 11:15 01/19/25 22:51 12.06 MLS/HR Midazolam HCl 50 ml @ 1 mls/hr Q24H IV 01/19/25 11:15 01/22/25 22:58 10 MLS/HR Fentanyl Citrate 250 ml @ 2.5 mls/hr Q24H IV 01/19/25 11:15 01/22/25 14:29 20 MLS/HR Vancomycin HCl 0 ml @ 0 mls/hr UD IV 01/19/25 13:00 Meropenem 50 ml @ 17 mls/hr Q12HR IV 01/19/25 22:00 01/22/25 22:37 17 MLS/HR Pantoprazole Sodium 40 mg BID IV 01/19/25 22:00 01/22/25 22:37 40 MG Vasopressin 20 units/Sodium Chloride 100 ml @ 9 mls/hr Q11H7M IV 01/19/25 13:00 01/20/25 12:19 9 MLS/HR Furosemide 60 mg BIDD IV 01/19/25 18:00 01/22/25 05:34 60 MG Thiamine HCl 100 mg DAILY IV 01/20/25 10:00 01/22/25 09:39 100 MG Folic Acid 1 mg/ Dextrose 50.2 ml @ 200.8 mls/ hr DAILY INJ 01/20/25 10:00 01/22/25 11:21 200.8 MLS/HR Polyethylene Glycol 17 gm DAILY PO 01/20/25 10:00 01/22/25 09:39 17 GM Diagnostic Test (Pha) 1 strip IQ4HR 01/19/25 16:00 01/22/25 15:40 1 STRIP Dextrose 50 ml UD PRN IV 01/19/25 13:15 Hydrocortisone Sodium Succinate 50 mg Q6HR IV 01/20/25 00:00 01/22/25 17:24 50 MG Norepinephrine Bitartrate 250 ml @ 3.75 mls/hr Q24H IV 01/19/25 20:15 01/20/25 00:34 22.5 MLS/HR Amiodarone HCl 200 mg Q12HR PO 01/20/25 10:00 01/21/25 21:45 200 MG Insulin Human Lispro IQ4HR SC 01/20/25 12:25 01/22/25 21:16 2 UNITS Potassium Chloride 100 ml @ 50 mls/hr Q2H IV 01/22/25 21:00 01/23/25 00:59 01/22/25 21:16 50 MLS/HR objective General: Intubated sedated afebrile, mucosae are moist Cardiovascular: Normal S1 and S2, distant heart sound Respiratory: Mechanically assisted ventilation, Clear lung sounds on auscultation Abdomen: Soft, nontender, no organomegaly, normal bowel sounds laboratory and microbiology Laboratory Tests 01/22/25 02:50 Test 01/22/25 02:50 Range/Units Serum Glucose 217 H 74-106 mg/dL Problems(with codes): (1) UGIB (upper gastrointestinal bleed) (2) Sepsis, unspecified organism (3) Elevated liver enzymes (4) SVT (supraventricular tachycardia) (5) Acute tubular necrosis (6) CHF (congestive heart failure) Prognosis A/P Pt has Alcoholic liver cirrhosis Portal hypertension secondary to cirrhosis Hyperbilirubinemia with transaminitis secondary to shock/cirrhosis Severe thrombocytopenia - Patient received 2 unit of platelets, 1 unit of PRBC and 1 unit of FFP IV Protonix 40 mg b.i.d Monitor Serial H&H Transfuse if hemoglobin drops below eight ; transfer abuse platelets if platelets are less than 20 Hold Lovenox and blood thinners for now Liver workup with hepatitis panel YANDY ferritin Correct coagulopathy I will follow up patient with you closely and we will be standing by for an endoscopy if urgently indicated Prognosis remains guarded IV antibiotics for Salmonella sepsis Maru discrimination function is low patient does not need steroids Meld score is 26 points at this time monitor liver enzymes and ammonia level Dietary Evaluation Review Comments: 1) Initiate Nephro-Haritha @ 1 tb qd 2) If patient remains NPO > 7 days, consider EN/TPN to meet at least 75% of estimated daily needs 3) If GI route is preferred, consider Nepro CarbSteady @ 30 mL/hr goal rate as tolerated. EN regimen will provide 1296 kcals. 58g Pro, and 523 mL free H2O per 24 hrs. Goal rate will meet ~ 92% estimated daily energy needs and ~ 43% estimated daily protein needs. 4) Advance to 60g CCHO renal diet when medically feasible, pending ST approal 5) Refer to outpatient RD/CDCES for weight management 6) Follow-up with cardiology, pulmonology, nephrology, gastroenterology, and hepatology 7) Follow-up with clinical social work aide r/t polysubstance abuse 8) Continue to monitor I&O, labs, and skin integrity Expected Outcomes/Goals: 1) patient to receive nutrition support within 7 days of NPO status 2) labs and GI symptoms to improve 3) diet to advance 4) f/u in 2-3 days Plan discussed with: Other (None) PALMIRA OCHOA MD Jan 22, 2025 23:57
[2025-01-23] VITALS (92 sets, daily range): BP systolic 114–186; BP diastolic 69–95; PULSE 40–70; RESP 20–22; TEMP 97–99.1; O2SAT 89–98
[2025-01-23 04:17] LABS: Anion Gap 14 (5-15); BUN/Creatinine Ratio 33.4 (10.0-20.0); Chloride 101 mmol/L (98-107)
[2025-01-23 04:21] LABS: Hemoglobin 11.6 g/dL (13.5-17.5)
[2025-01-23 04:23] LABS: Hematocrit 33.9 % (41.0-53.0); Mean Corpuscular Hemoglobin 29.6 pg (28.0-32.0); Mean Corpuscular Volume 86.1 fL (80.0-100.0)
[2025-01-23 04:36] LABS: Alanine Aminotransferase 44 U/L (7-40); Albumin 3.2 g/dL (3.2-4.8); Alkaline Phosphatase 143 U/L (46-116); Bilirubin, Total 1.8 mg/dL (0.2-1.0); Calcium 7.8 mg/dL (8.7-10.4); Carbon Dioxide 33 mmol/L (20-31); Glucose 232 mg/dL (74-106); Potassium 3.0 mmol/L (3.5-5.1); Sodium 148 mmol/L (136-145); Total Protein 5.4 g/dL (5.7-8.2)
[2025-01-23 04:37] LABS: Blood Urea Nitrogen 108 mg/dL (9-23)
[2025-01-23 05:03] LABS: Total Cells Counted 100.0 (100)
--- NOTE | 2025-01-23 05:29 | DVH ---
CHEST RADIOGRAPH Indication: intubated Technique: Single frontal view of the chest was obtained COMPARISON: XY CHEST PORTABLE on DOS: 01/21/25, XY CHEST XRAY 1 VIEW on DOS: 01/20/25, XY CHEST XRAY 1 VIEW on DOS: 01/20/25, XY CHEST PORTABLE on DOS: 01/19/25, XY CHEST PORTABLE on DOS: 01/19/25 FINDINGS: Lines and Tubes: Unchanged. Lungs: Mild left basilar pulmonary airspace disease and small left pleural effusion. No pneumothorax. Cardiomediastinal contours: Unremarkable Bones: Unremarkable IMPRESSION: 1. Mild left basilar pulmonary airspace disease and small left pleural effusion. 2. Lines and tubes unchanged.
[2025-01-23] MEDS: POTASSIUM CHL 20MEQ/100ML 100 ML IV ONE ×2 (05:32→07:30)
[2025-01-23 09:14] LABS: Base Excess 8.5 mmol/L (-2.0-3.0)
[2025-01-23] MEDS: INSULIN LISPRO (HUMAN) 100 UNITS/ML ML SC SCH (10:00)
[2025-01-23] MEDS ORDERED: INSULIN LANTUS (GLARGINE) 1 /0.01ml (100units/ml) SC SCH (10:00)
[2025-01-23] MEDS: ACCU-CHEK COMFORT CURVE STRIP VI SCH (10:00)
[2025-01-23] MEDS ORDERED: AMPICILLIN INJ 1 GM in SODIUM CHL 0.9% 100 ML IV SCH (12:00)
[2025-01-23] MEDS: VANCOMYCIN 750mg/150ml 150 ML IV ONE (12:22)
[2025-01-23] MEDS: SODIUM CHL 0.9% 1000 ML BAG XX ONE (13:45)
--- NOTE | 2025-01-23 15:52 | DVHPN2 ---
Progress Note Date Seen: Jan 23, 2025 Medical Necessity Reason Pt with a Central, PICC or Fol: Yes The following are medically ne: Young Catheter Reason for young catheter: Strict I&O Subjective Patient reports: Other (intubated) Review of Systems: Deferred Objective vital signs Vital Sign Date Time Temp Pulse Resp B/P (MAP) Pulse Ox O2 Delivery O2 Flow Rate FiO2 01/23/25 13:59 55 20 168/83 (111) 93 65 01/23/25 13:15 97.5 97.5 01/23/25 12:00 Mechanical Ventilator+ 01/23/25 08:00 0 Total Intake and Output 01/22/25 01/22/25 01/23/25 15:00 23:00 07:00 Intake Total 861.2 ml 340 ml 240 ml Output Total 2800 ml 1350 ml Balance 861.2 ml -2460 ml -1110 ml medications Current Medications Medications Dose Ordered Sig/Natividad Route Start Time Stop Time Status Last Admin Dose Admin Propofol 100 ml @ 3.015 mls/ hr Q24H IV 01/19/25 11:15 01/19/25 22:51 12.06 MLS/HR Midazolam HCl 50 ml @ 1 mls/hr Q24H IV 01/19/25 11:15 01/23/25 04:19 10 MLS/HR Fentanyl Citrate 250 ml @ 2.5 mls/hr Q24H IV 01/19/25 11:15 01/23/25 02:40 20 MLS/HR Pantoprazole Sodium 40 mg BID IV 01/19/25 22:00 01/23/25 10:00 40 MG Furosemide 60 mg BIDD IV 01/19/25 18:00 01/23/25 05:31 60 MG Thiamine HCl 100 mg DAILY IV 01/20/25 10:00 01/23/25 10:00 100 MG Folic Acid 1 mg/ Dextrose 50.2 ml @ 200.8 mls/ hr DAILY INJ 01/20/25 10:00 01/23/25 10:00 200.8 MLS/HR Polyethylene Glycol 17 gm DAILY PO 01/20/25 10:00 01/23/25 10:00 17 GM Dextrose 50 ml UD PRN IV 01/19/25 13:15 Diagnostic Test (Pha) 1 strip Q6HR 01/23/25 10:00 01/23/25 12:23 1 STRIP Insulin Human Lispro Q6HR SC 01/23/25 10:00 01/23/25 12:36 2 UNITS Ampicillin Sodium 1 gm/Sodium Chloride 100 ml @ 200 mls/hr Q12HR IV 01/23/25 22:00 Amlodipine Besylate 5 mg DAILY PO 01/24/25 10:00 Examination: GENERAL:Abnormal, LUNGS:Abnormal, MSK:Abnormal, SKIN:Abnormal, NEURO:Abnormal laboratory and microbiology Laboratory Tests 01/23/25 03:01 Test 01/23/25 03:01 Range/Units Serum Glucose 232 H 74-106 mg/dL Microbiology Date/Time Source Procedure Growth Status 01/19/25 20:17 Nose MRSA Screen - Final Complete 01/19/25 10:43 Sputum Gram Stain - Final Complete 01/19/25 10:43 Respiratory Culture - Final Escherichia coli Complete 01/18/25 06:30 Blood Blood Culture - Preliminary Salmonella species Resulted 01/18/25 06:08 Voided Urine Urine Culture - Final Complete Problem List/Assessment/Plan Problem List/Assessment/Plan Acute kidney injury /ATN needing HD chronic kidney disease unspecified baseline unknown SVT Acute respiratory failure/intubated Cirrhosis likely alcohol cirrhosis 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 EN regimen will provide 1296 kcals. 58g Pro, and 523 mL free H2O per 24 hrs. Goal rate will meet ~ 92% estimated daily energy needs and ~ 43% estimated daily protein needs. 4) Advance to 60g CCHO renal diet when medically feasible, pending ST approal 5) Refer to outpatient RD/CDCES for weight management 6) Follow-up with cardiology, pulmonology, nephrology, gastroenterology, and hepatology 7) Follow-up with social media editor r/t polysubstance abuse 8) Continue to monitor I&O, labs, and skin integrity Expected Outcomes/Goals: 1) patient to receive nutrition support within 7 days of NPO status 2) labs and GI symptoms to improve 3) diet to advance 4) f/u in 2-3 days CAMERON HOLLOWAY MD Jan 23, 2025 15:52
--- NOTE | 2025-01-23 17:01 | DVHPNRES ---
Progress Note Date Seen: Jan 23, 2025 Resident Creating Document: SONA HEARD RESDIENT Medical Necessity Reason Pt with a Central, PICC or Fol: Yes The following are medically ne: Young Catheter Reason for young catheter: Strict I&O Subjective Review of Systems Patient seen and examined at the bedside. Patient is intubated, can not provide review of system. Objective vital signs Vital Sign Date Time Temp Pulse Resp B/P (MAP) Pulse Ox O2 Delivery O2 Flow Rate FiO2 01/23/25 15:29 61 22 133/86 (102) 94 65 01/23/25 13:15 97.5 97.5 01/23/25 12:00 Mechanical Ventilator+ 01/23/25 08:00 0 Total Intake and Output 01/22/25 01/22/25 01/23/25 15:00 23:00 07:00 Intake Total 861.2 ml 340 ml 240 ml Output Total 2800 ml 1350 ml Balance 861.2 ml -2460 ml -1110 ml medications Current Medications Medications Dose Ordered Sig/Natividad Route Start Time Stop Time Status Last Admin Dose Admin Propofol 100 ml @ 3.015 mls/ hr Q24H IV 01/19/25 11:15 01/19/25 22:51 12.06 MLS/HR Midazolam HCl 50 ml @ 1 mls/hr Q24H IV 01/19/25 11:15 01/23/25 04:19 10 MLS/HR Fentanyl Citrate 250 ml @ 2.5 mls/hr Q24H IV 01/19/25 11:15 01/23/25 02:40 20 MLS/HR Pantoprazole Sodium 40 mg BID IV 01/19/25 22:00 01/23/25 10:00 40 MG Furosemide 60 mg BIDD IV 01/19/25 18:00 01/23/25 05:31 60 MG Thiamine HCl 100 mg DAILY IV 01/20/25 10:00 01/23/25 10:00 100 MG Folic Acid 1 mg/ Dextrose 50.2 ml @ 200.8 mls/ hr DAILY INJ 01/20/25 10:00 01/23/25 10:00 200.8 MLS/HR Polyethylene Glycol 17 gm DAILY PO 01/20/25 10:00 01/23/25 10:00 17 GM Dextrose 50 ml UD PRN IV 01/19/25 13:15 Diagnostic Test (Pha) 1 strip Q6HR 01/23/25 10:00 01/23/25 12:23 1 STRIP Insulin Human Lispro Q6HR SC 01/23/25 10:00 01/23/25 12:36 2 UNITS Ampicillin Sodium 1 gm/Sodium Chloride 100 ml @ 200 mls/hr Q12HR IV 01/23/25 22:00 Amlodipine Besylate 5 mg DAILY PO 01/24/25 10:00 Metoclopramide HCl 5 mg Q8HR IV 01/23/25 16:30 UNV Enteral Nutritional Formula 1,000 ml 30ML/HR NG 01/23/25 16:30 UNV Examination General: RASS -4, afebrile, mucosae are moist Cardiovascular: Normal S1 and S2. No murmurs, gallops or rubs Respiratory: Mechanically assisted ventilation, equal bilateral airway entree. Clear lung sounds on auscultation Abdomen: Soft, nontender, no organomegaly, normal bowel sounds MSK/skin: Right hand fingers are blue (involve more distal phalanx) and cold Neurological: Orientation cannot be assessed. No apparent motor no sensitive deficits. Pupils are isocoric and reactive laboratory and microbiology Laboratory Tests 01/23/25 03:01 Test 01/23/25 03:01 Range/Units Serum Glucose 232 H 74-106 mg/dL Microbiology Date/Time Source Procedure Growth Status 01/19/25 20:17 Nose MRSA Screen - Final Complete 01/19/25 10:43 Sputum Gram Stain - Final Complete 01/19/25 10:43 Respiratory Culture - Final Escherichia coli Complete 01/18/25 06:30 Blood Blood Culture - Preliminary Salmonella species Resulted 01/18/25 06:08 Voided Urine Urine Culture - Final Complete Labs and/or images reviewed: Labs reviewed by me, Image(s) reviewed by me Problem List/Assessment/Plan Problem List/Assessment/Plan This is a 60-year-old male with past medical history of alcohol use disorder, current heavy smoker, gout, dyslipidemia, came to the hospital due to low back pain. On 2nd day of admission, the patient is stabilized, developed AFib and SVT, underwent cardioversion and adenosine was given subsequently, due to respiratory distress and inability to maintain respiratory tract, the patient was sedated, intubated and put on mechanical ventilation. NEURO: Acute metabolic/toxic encephalopathy likely due to sepsis/alcohol use disorder * Sedated, on MV with RASS score -4 CARDIOVASCULAR: ? Cardiogenic shock, likely due to AFib with RVR/SVT Atrial fibrillation with RVR/SVT Acquired coagulopathy ? Acute on chronic Heart failure with reduced ejection fraction NSTEMI, likely type 2 due to above Sinus bradycardia * Patient was 2 times reverted to NSR with cardioversion, subsequently put on amiodarone drip for 2 days, discontinued due to regaining sinus rhythm and bradycardia * EKG upon admission showed sinus rhythm with no significant ST or T-wave changes * Subsequent EKGs showed AFib with RVR and SVT * Today, EKGs shows sinus bradycardia with no significant ST or T-wave changes * Echo shows, LVEF 45% severe pulmonary hypertension (RVSP 64) * BNP is raised at 450s * Cardiology is on the board, recommended medical management PULMONARY: Acute hypoxic respiratory failure, likely due to pneumonia Pneumonia, likely due to Gram-positive/Gram-negative bacteria/viral ? Pulmonary hypertension Possible obstructive sleep apnea * CT scan shows, bilateral small pleural effusion * Chest x-ray shows, closed left costophrenic angle * Pulmonology is on the board, planned for bronchoscopy GASTROINTESTINAL: ? Upper GI bleeding, likely due to liver cirrhosis/portal hypertension Alcohol use disorder Hepatomegaly and hepatic steatosis, likely due to alcohol use disorder Splenomegaly, likely due to above Bilateral indirect inguinal hernia, fatigue content extending to the scrotum Diverticulosis * GI is on the board, recommended medical management at the moment * Thiamine and folic acid GENITOURINARY: JOSE on possible CKD, likely VMN (baseline record not available) * Nephrology on the board, performed to session of HD, last session on 01/23/2025 * Lasix 40 mg b.i.d. ENDOCRINE: Newly diagnosed Diabetes, with hyperglycemia Dyslipidemia Thyroid nodule Obesity * HBA1c is 6.5 * Lispro subcutaneous q.6 hours METABOLIC: Gout Hypokalemia Hypocalcemia Mild hypernatremia HEME: Severe thrombocytopenia, likely due to liver cirrhosis Mild anemia, normocytic normochromic * Status post transfusion of 1 unit RBC, 1 units FFP, and 1 unit platelet INFECTIOUS DISEASE: ? Septic shock likely due to pneumonia/bacteremia * Blood culture shows Gram-negative right, Salmonella sensitive to ampicillin * Sputum culture shows E coli, sensitive to ampicillin * Vancomycin and cefepime was given for 5 days, DC on 01/15/2025 * Ampicillin IV DERMATOLOGY: Right hand acute PAD * Doppler ultrasound shows no significant arterial disease * Amlodipine 5 mg daily * Local and sublingual nitroglycerin MUSCULOSKELETAL: * Chronic back pain, due to severe lumbar disc disease DIET: Nepro 30 mL/hr DVT prophylax: Due to severe thrombocytopenia, no anticoagulant is indicated, SCDs GI prophylaxis: Protonix 40 mg b.i.d. Bowel regimen: MiraLax 17 g p.o. daily Code status: Code status discussed with the family (son), full code LINES/DRAINS/ACCESS: * ETT: Intubated on 01/19/2025 * IV access: Left internal jugular vein, placed on 01/19/2025 * Drips: Versed (10) and fentanyl * Young catheter: DISPOSITION: ICU status Patient's status discussed with patient's son, sister, and [id number] at the bedside. Critical care time spent more than 78 minutes, including patient care, chart review, and updating the family. Excluding any procedures. Case discussed with Dr. Chadwick Plan discussed with: Patient, Son, Other (RN) My Orders My Orders Orders - SONA HEARD RESDIENT Procedure Category Date Status Time Glucose Blood PHA 01/23/25 In Process (Accu-Chek Comfort 10:00 Insulin Lispro PHA 01/23/25 In Process (Human) (Humalog) 10:00 Amlodipine Tablet PHA 01/24/25 In Process (Norvasc Tablet) 10:00 Dietary Evaluation Review Comments: 1) Initiate Nephro-Haritha @ 1 tb qd 2) If patient remains NPO > 7 days, consider EN/TPN to meet at least 75% of estimated daily needs 3) If GI route is preferred, consider Nepro CarbSteady @ 30 mL/hr goal rate as tolerated. EN regimen will provide 1296 kcals. 58g Pro, and 523 mL free H2O per 24 hrs. Goal rate will meet ~ 92% estimated daily energy needs and ~ 43% estimated daily protein needs. 4) Advance to 60g CCHO renal diet when medically feasible, pending ST approal 5) Refer to outpatient RD/CDCES for weight management 6) Follow-up with cardiology, pulmonology, nephrology, gastroenterology, and hepatology 7) Follow-up with nursing home social worker r/t polysubstance abuse 8) Continue to monitor I&O, labs, and skin integrity Expected Outcomes/Goals: 1) patient to receive nutrition support within 7 days of NPO status 2) labs and GI symptoms to improve 3) diet to advance 4) f/u in 2-3 days Date of Service: Jan 23, 2025 Billing Provider: PINA CHADWICK MD Common Visit Codes: [id number] CARE 30-74 MIN SONA HEARD Jan 23, 2025 17:01 PINA CHADWICK MD Jan 24, 2025 20:08
--- NOTE | 2025-01-23 17:30 | DVHPN2 ---
Progress Note Date Seen: Jan 23, 2025 Resident Creating Document: NATALY BURNETTE RESIDENT Has the PT tested + for MRSA If YES, has PT been informed?: No Medical Necessity Reason Pt with a Central, PICC or Fol: Yes The following are medically ne: Young Catheter Reason for young catheter: Strict I&O Subjective Review of Systems 01/23/25 Nursing reports no evidence of fresh GI bleeding via NG tube today; aspirate is clear. Enteral feeding with Nepro Carb Steady at 30 mL/hr is ongoing, tolerated well. Patient is on scheduled IV metoclopramide for gastroparesis and IV Protonix for stress ulcer prophylaxis. Brief Gist of Today's Progress: * Ventilator settings: AC mode, PEEP 8 cmH?O, tidal volume 500 mL, FiO? 65%, RR 20. * NG feeds: Nepro running at 30 mL/hr, well tolerated. * Labs: Hgb 11.6, Hct stable, platelets improved to 40K. BUN 108, Cr 3.23 (on dialysis), AST 33, ALT 44, TBili 1.8. Electrolytes stable post-dialysis. * Medications: Protonix IV, Reglan IV, ongoing antibiotics (Ampicillin, Vancomycin), insulin sliding scale, and supportive therapy. * Vitals: BP 145/54210/76, HR 4361, SpO? 9394% on FiO? 65%. * Plan: Continue GI prophylaxis, monitor for rebleeding, maintain enteral nutrition, and support ventilator/dialysis needs. Review of Systems (GI Focused): (Limited by sedation and intubation) * GI: No melena, hematemesis, abdominal pain, or distension. NG aspirate clear. * Other systems: Unable to obtain secondary to sedation. Objective vital signs Vital Sign Date Time Temp Pulse Resp B/P (MAP) Pulse Ox O2 Delivery O2 Flow Rate FiO2 01/23/25 15:29 61 22 133/86 (102) 94 65 01/23/25 13:15 97.5 97.5 01/23/25 12:00 Mechanical Ventilator+ 01/23/25 08:00 0 Total Intake and Output 01/22/25 01/22/25 01/23/25 15:00 23:00 07:00 Intake Total 861.2 ml 340 ml 240 ml Output Total 2800 ml 1350 ml Balance 861.2 ml -2460 ml -1110 ml medications Current Medications Medications Dose Ordered Sig/Natividad Route Start Time Stop Time Status Last Admin Dose Admin Propofol 100 ml @ 3.015 mls/ hr Q24H IV 01/19/25 11:15 01/19/25 22:51 12.06 MLS/HR Midazolam HCl 50 ml @ 1 mls/hr Q24H IV 01/19/25 11:15 01/23/25 04:19 10 MLS/HR Fentanyl Citrate 250 ml @ 2.5 mls/hr Q24H IV 01/19/25 11:15 01/23/25 02:40 20 MLS/HR Pantoprazole Sodium 40 mg BID IV 01/19/25 22:00 01/23/25 10:00 40 MG Furosemide 60 mg BIDD IV 01/19/25 18:00 01/23/25 05:31 60 MG Thiamine HCl 100 mg DAILY IV 01/20/25 10:00 01/23/25 10:00 100 MG Folic Acid 1 mg/ Dextrose 50.2 ml @ 200.8 mls/ hr DAILY INJ 01/20/25 10:00 01/23/25 10:00 200.8 MLS/HR Polyethylene Glycol 17 gm DAILY PO 01/20/25 10:00 01/23/25 10:00 17 GM Dextrose 50 ml UD PRN IV 01/19/25 13:15 Diagnostic Test (Pha) 1 strip Q6HR 01/23/25 10:00 01/23/25 12:23 1 STRIP Insulin Human Lispro Q6HR SC 01/23/25 10:00 01/23/25 12:36 2 UNITS Ampicillin Sodium 1 gm/Sodium Chloride 100 ml @ 200 mls/hr Q12HR IV 01/23/25 22:00 Amlodipine Besylate 5 mg DAILY PO 01/24/25 10:00 Metoclopramide HCl 5 mg Q8HR IV 01/23/25 16:30 UNV Enteral Nutritional Formula 1,000 ml 30ML/HR NG 01/23/25 16:30 UNV Examination * General: Intubated, sedated, mechanically ventilated. * Abdomen: Soft, non-distended, bowel sounds present. No guarding or rebound tenderness. NG tube in place; aspirate clear. * GI Tube Site: Clean, intact. * Skin: No jaundice, no bruising at tube site. * Other systems: Stable on current support. laboratory and microbiology Laboratory Tests 01/23/25 03:01 Test 01/23/25 03:01 Range/Units Serum Glucose 232 H 74-106 mg/dL Microbiology Date/Time Source Procedure Growth Status 01/19/25 20:17 Nose MRSA Screen - Final Complete 01/19/25 10:43 Sputum Gram Stain - Final Complete 01/19/25 10:43 Respiratory Culture - Final Escherichia coli Complete 01/18/25 06:30 Blood Blood Culture - Preliminary Salmonella species Resulted 01/18/25 06:08 Voided Urine Urine Culture - Final Complete Problem List/Assessment/Plan Problems(with codes): (1) CHF (congestive heart failure) (2) Acute tubular necrosis (3) SVT (supraventricular tachycardia) (4) Elevated liver enzymes (5) Sepsis, unspecified organism (6) UGIB (upper gastrointestinal bleed) (7) FH: kidney disease (8) FH: cancer of digestive organ (9) FH: HTN (hypertension) Problem List/Assessment/Plan 1. Upper gastrointestinal bleed * No active bleeding; H/H stable; NG aspirate clear. 2. Alcoholic liver cirrhosis with portal hypertension * MELD 26, mild hyperbilirubinemia, stable LFTs. 3. Gastroparesis due to critical illness improving * Tolerating tube feeds with IV Reglan. 4. ESRD on hemodialysis * BUN/Cr elevated; dialysis ongoing. 5. Acute hypoxic respiratory failure on mechanical ventilation * Stable on current settings. 6. Severe thrombocytopenia (Platelets 40K, trending up post-transfusion) 7. Critical illness requiring enteral nutrition and GI prophylaxis Plan : Gastrointestinal: * Continue IV Protonix 40 mg BID for stress ulcer prophylaxis. * Continue IV Metoclopramide 5 mg q8h for motility. * Maintain Nepro NG feeding at 30 mL/hr; monitor for residuals and tolerance. * Monitor NG output for any signs of GI bleeding. * Daily CBC and chemistry to track H/H and liver function. * No endoscopic intervention at this time unless rebleeding occurs. * Monitor LFTs, INR, and ammonia daily. * Avoid hepatotoxic medications. * Continue supportive care for cirrhosis. * Aspiration: Maintain HOB elevation >30. Case discussed in detail with the attending physician, including the clinical presentation, diagnostic workup, and comprehensive management plan. Plan discussed with: Other (Nurse, no family was present at bedside) My Orders My Orders Orders - NATALY BURNETTE RESIDENT Procedure Category Date Status Time Metoclopramide PHA 01/23/25 Logged Injection (Reglan 16:30 Nutritional PHA 01/23/25 In Process Supplements (Nepro 16:30 Dietary Evaluation Review Comments: 1) Initiate Nephro-Haritha @ 1 tb qd 2) If patient remains NPO > 7 days, consider EN/TPN to meet at least 75% of estimated daily needs 3) If GI route is preferred, consider Nepro CarbSteady @ 30 mL/hr goal rate as tolerated. EN regimen will provide 1296 kcals. 58g Pro, and 523 mL free H2O per 24 hrs. Goal rate will meet ~ 92% estimated daily energy needs and ~ 43% estimated daily protein needs. 4) Advance to 60g CCHO renal diet when medically feasible, pending ST approal 5) Refer to outpatient RD/CDCES for weight management 6) Follow-up with cardiology, pulmonology, nephrology, gastroenterology, and hepatology 7) Follow-up with social work supervisor r/t polysubstance abuse 8) Continue to monitor I&O, labs, and skin integrity Expected Outcomes/Goals: 1) patient to receive nutrition support within 7 days of NPO status 2) labs and GI symptoms to improve 3) diet to advance 4) f/u in 2-3 days NATALY BURNETTE RESIDENT Jan 23, 2025 17:30
[2025-01-23] MEDS: METOCLOPRAMIDE HCL 5MG/ml INJ 2ml VIAL IV SCH (18:04)
[2025-01-23] MEDS: NITROGLYCERIN 0.4 MG SL TAB SL ONE (18:04)
[2025-01-23] MEDS: NITROGLYCERIN 2% OINT 1GM PKG TD ONE (18:05)
--- NOTE | 2025-01-23 18:29 | DVHPN2 ---
Consult Progress Note Subjective Other Systems: Patient in normal sinus rhythm on ekg monitor tech Bradycardia episodes seen on cardiac event monitor. Objective vital signs Vital Sign Date Time Temp Pulse Resp B/P (MAP) Pulse Ox O2 Delivery O2 Flow Rate FiO2 01/23/25 17:13 145/95 01/23/25 15:29 61 22 94 65 01/23/25 13:15 97.5 97.5 01/23/25 12:00 Mechanical Ventilator+ 01/23/25 08:00 0 Total Intake and Output 01/22/25 01/22/25 01/23/25 15:00 23:00 07:00 Intake Total 861.2 ml 340 ml 240 ml Output Total 2800 ml 1350 ml Balance 861.2 ml -2460 ml -1110 ml medications Current Medications Medications Dose Ordered Sig/Natividad Route Start Time Stop Time Status Last Admin Dose Admin Propofol 100 ml @ 3.015 mls/ hr Q24H IV 01/19/25 11:15 01/19/25 22:51 12.06 MLS/HR Midazolam HCl 50 ml @ 1 mls/hr Q24H IV 01/19/25 11:15 01/23/25 04:19 10 MLS/HR Fentanyl Citrate 250 ml @ 2.5 mls/hr Q24H IV 01/19/25 11:15 01/23/25 02:40 20 MLS/HR Pantoprazole Sodium 40 mg BID IV 01/19/25 22:00 01/23/25 10:00 40 MG Furosemide 60 mg BIDD IV 01/19/25 18:00 01/23/25 05:31 60 MG Thiamine HCl 100 mg DAILY IV 01/20/25 10:00 01/23/25 10:00 100 MG Folic Acid 1 mg/ Dextrose 50.2 ml @ 200.8 mls/ hr DAILY INJ 01/20/25 10:00 01/23/25 10:00 200.8 MLS/HR Polyethylene Glycol 17 gm DAILY PO 01/20/25 10:00 01/23/25 10:00 17 GM Dextrose 50 ml UD PRN IV 01/19/25 13:15 Diagnostic Test (Pha) 1 strip Q6HR 01/23/25 10:00 01/23/25 12:23 1 STRIP Insulin Human Lispro Q6HR SC 01/23/25 10:00 01/23/25 12:36 2 UNITS Ampicillin Sodium 1 gm/Sodium Chloride 100 ml @ 200 mls/hr Q12HR IV 01/23/25 22:00 Amlodipine Besylate 5 mg DAILY PO 01/24/25 10:00 Metoclopramide HCl 5 mg Q8HR IV 01/23/25 16:30 Enteral Nutritional Formula 1,000 ml 30ML/HR NG 01/23/25 16:30 Examination: GENERAL:Abnormal, LUNGS:Abnormal (Mechanically ventilated), CVS:Normal, SKIN:Abnormal (Right hand fingers necrotic), NEURO:Abnormal (Chemically sedated) laboratory and microbiology Laboratory Tests 01/23/25 03:01 Test 01/23/25 03:01 Range/Units Serum Glucose 232 H 74-106 mg/dL Problem List/Assessment/Plan Problem List/Assessment/Plan Atrial fibrillation with rapid ventricular response status post direct current cardioversion, now normal sinus rhythm Acute hypoxic respiratory failure Acute on chronic HFmrEF, NYHA class IV, newly diagnosed Septic versus hemorrhagic shock Severe thrombocytopenia Type 2 diabetes mellitus, newly diagnosed Pulmonary hypertension, severe degree Alcohol use disorder Upper GI bleed Transaminitis Acute kidney injury Liver cirrhosis Tobacco use History of methamphetamine use Morbid obesity Medical noncompliance Plan/Recommendations (Dr. Sloan): * Transthoracic echocardiogram reveals EF 45%, RVSP 64 mmHg * Unable to initiate guideline directed medical therapy for CHF given vasopressor support * Continue vasopressor therapy for hemodynamic support * ?[id number] VASc score: 1 point, HAS-BLED score: 3 points * Hold off anticoagulation given severe thrombocytopenia. Continue SCDs * Beta-blockers and antiarrhythmic agents held given patient has episodes of bradycardia * Monitor and replete electrolytes as needed * Closely monitor hemoglobin and hematocrit, transfuse as needed * Close Cardiac surveillance Case discussed with . On physical assessment today, patient noted to have necrotic fingers on right hand. A right upper extremity arterial duplex was ordered by primary care team which shows no significant stenosis. Given patient severely low platelet count, the patient would not be an ideal candidate for any invasive cardiac procedures. Thank you for allowing us to care for this patient. Please call with any questions or concerns. Critical care time spent: 38 minutes. This medical document was created using an electronic medical record system with voice recognition software and computerized dictation system. Although this document has been carefully reviewed, there might still be some phonetic and typographical errors. Occasional wrong-word or ``sound-alike substitutions may have occurred due to the inherent limitations of voice recognition software. These areas are purely typographical due to imperfections of the software programs and do not reflect any compromise in the patient's medical care. Please read the chart carefully and recognize, using context, where these substitutions have occurred. Plan discussed with: Other (Bedside RN) Dietary Evaluation Review Comments: 1) Initiate Nephro-Haritha @ 1 tb qd 2) If patient remains NPO > 7 days, consider EN/TPN to meet at least 75% of estimated daily needs 3) If GI route is preferred, consider Nepro CarbSteady @ 30 mL/hr goal rate as tolerated. EN regimen will provide 1296 kcals. 58g Pro, and 523 mL free H2O per 24 hrs. Goal rate will meet ~ 92% estimated daily energy needs and ~ 43% estimated daily protein needs. 4) Advance to 60g CCHO renal diet when medically feasible, pending ST approal 5) Refer to outpatient RD/CDCES for weight management 6) Follow-up with cardiology, pulmonology, nephrology, gastroenterology, and hepatology 7) Follow-up with marriage and family social worker r/t polysubstance abuse 8) Continue to monitor I&O, labs, and skin integrity Expected Outcomes/Goals: 1) patient to receive nutrition support within 7 days of NPO status 2) labs and GI symptoms to improve 3) diet to advance 4) f/u in 2-3 days Date of Service: Jan 23, 2025 Billing Provider: JOHN PEARCE Common Visit Codes: [id number] CARE 30-74 MIN JOHN PEARCE Jan 23, 2025 18:29
--- NOTE | 2025-01-23 18:31 | DVHNC2 ---
Procedure - Bronchoscopy procedure note: Indications: Left lower lobe atelectasis, Possible mucous plugging. Medicines: See PRODUCT DEVELOPMENT notes. Complications: None Time out: 1815 pm Procedure: Patient medications and allergies reviewed. The risks and benefits of the procedure and the sedation options and risk were discussed with the patient's healthcare proxy. All questions were answered and informed consent was obtained. Patient identification and proposed procedure were verified prior to the procedure by the physician, and a nurse, and the respiratory therapist in ICU room. The heart rate, respiratory rate, oxygen saturations, blood pressure, adequacy of pulmonary ventilation, and response to care were monitored throughout the procedure. The physical status of the patient was reassessed after the procedure. After obtaining informed consent, the bronchoscope was introduced through the endotracheal tube and advanced into the trachea bronchial tree of both lungs. The procedure was accomplished without difficulty. The patient tolerated the procedure well. Findings: The trachea is in normal caliber. The vin is sharp. The tracheobronchial tree of the right lung was examined to at least the first subsegmental level. The bronchial mucosa and anatomy in the right lung are normal. There are no endobronchial lesions. There was copious whitish secretions from right main stem bronchus onward throughout R1-R10. Right middle lobe (RML) Bronchoalveolar lavage (BAL) obtained. RML BAL sent for gram stain and culture, viral culture, fungal culture, and AFB smear and culture. The left upper lobe, lingula, and left lower lobe were examined to at least the first subsegmental level. Bronchial mucosa and anatomy in the left upper lobe and lingula are normal. There were no endobronchial lesions. There was copious whitish secretions from left main stem bronchus onward throughout L1-L10. Mucous plugging removed from L6-L10. There is extrinsic compression of left lower lobe likely causing consolidated appearance on CXR. Plan for limited chest US to r/o left pleural effusion as noted on CXR. There was mucosal hemorrhage from RML. Resolved with 20 mL of cold saline. There was no active bleeding at the completion of the procedure. Estimated blood loss: Less than 5 mL. Impression: Left lower lobe atelectasis due to mucous plugging Mucous plugging from L6-L10 and R1-R10. RML BAL performed Recommendation: Follow-up RML BAL results. Procedure codes: 78723, bronchoscopy, rigid and flexible, including fluoroscopic guidance, one performed; with bronchial endobronchial broncho-alveolar lavage, single or multiple sites TIM GE MD Jan 23, 2025 18:31
--- NOTE | 2025-01-23 18:37 | DVHNC2 ---
Procedure - Limited Chest US procedure note: A limited thoracic ultrasound was performed to evaluate for potential thoracentesis. Real-time imaging demonstrated no suitable pocket amenable for thoracentesis identified in the left pleural space. Conclusion: The findings demonstrate no amenable thoracentesis at this time. There is lung consolidation. CPT 04739-31 TIM GE MD Jan 23, 2025 18:37
--- NOTE | 2025-01-23 20:16 | DVHPN2 ---
Progress Note - Dictate Date Seen: Jan 23, 2025 Has the PT tested + for MRSA If YES, has PT been informed?: No Medical Necessity Reason Pt with a Central, PICC or Fol: Yes The following are medically ne: Young Catheter Reason for young catheter: Strict I&O Subjective [facility] Patient seen and examined at bedside. Intubated on mechanical ventilator. Overnight events reviewed. vital signs Vital Sign Date Time Temp Pulse Resp B/P (MAP) Pulse Ox O2 Delivery O2 Flow Rate FiO2 01/23/25 19:42 127/83 01/23/25 19:00 64 20 90 01/23/25 18:30 98.4 209.1 01/23/25 18:25 65 01/23/25 18:00 Mechanical Ventilator+ 01/23/25 08:00 0 Total Intake and Output 01/22/25 01/22/25 01/23/25 15:00 23:00 07:00 Intake Total 861.2 ml 340 ml 240 ml Output Total 2800 ml 1350 ml Balance 861.2 ml -2460 ml -1110 ml medications Current Medications Medications Dose Ordered Sig/Natividad Route Start Time Stop Time Status Last Admin Dose Admin Propofol 100 ml @ 3.015 mls/ hr Q24H IV 01/19/25 11:15 01/19/25 22:51 12.06 MLS/HR Midazolam HCl 50 ml @ 1 mls/hr Q24H IV 01/19/25 11:15 01/23/25 04:19 10 MLS/HR Fentanyl Citrate 250 ml @ 2.5 mls/hr Q24H IV 01/19/25 11:15 01/23/25 19:42 10 MLS/HR Pantoprazole Sodium 40 mg BID IV 01/19/25 22:00 01/23/25 10:00 40 MG Furosemide 60 mg BIDD IV 01/19/25 18:00 01/23/25 18:05 60 MG Thiamine HCl 100 mg DAILY IV 01/20/25 10:00 01/23/25 10:00 100 MG Folic Acid 1 mg/ Dextrose 50.2 ml @ 200.8 mls/ hr DAILY INJ 01/20/25 10:00 01/23/25 10:00 200.8 MLS/HR Polyethylene Glycol 17 gm DAILY PO 01/20/25 10:00 01/23/25 10:00 17 GM Dextrose 50 ml UD PRN IV 01/19/25 13:15 Diagnostic Test (Pha) 1 strip Q6HR 01/23/25 10:00 01/23/25 18:05 1 STRIP Insulin Human Lispro Q6HR SC 01/23/25 10:00 01/23/25 18:16 2 UNITS Ampicillin Sodium 1 gm/Sodium Chloride 100 ml @ 200 mls/hr Q12HR IV 01/23/25 22:00 Amlodipine Besylate 5 mg DAILY PO 01/24/25 10:00 Metoclopramide HCl 5 mg Q8HR IV 01/23/25 16:30 01/23/25 18:04 5 MG Enteral Nutritional Formula 1,000 ml 30ML/HR NG 01/23/25 16:30 objective Gen.: Patient lying in bed in medical ICU. Intubated on mechanical ventilator. Head: Normocephalic, atraumatic. Eyes: PERRLA. Ears: Normal external anatomy. Throat: Endotracheal tube and orogastric tube in place. Neck: Supple, trachea midline. Chest: Transmitted breath sounds bilaterally. Decreased air entry bilaterally. No wheezing. Bibasilar crackles. Cardiovascular: Positive S1, positive S2. Regular rate and rhythm. Abdomen: Positive bowel sounds in all 4 quadrants. Soft, nontender, nondistended. : Young in place. Normal external genitalia. Rectal: Deferred. Skin: Warm, dry. Intact. Extremities: 2+ radial pulses bilaterally. No lower extremity edema. Neuro: Off sedation laboratory and microbiology Laboratory Tests 01/23/25 03:01 Test 01/23/25 03:01 Range/Units Serum Glucose 232 H 74-106 mg/dL Assessment/Plan Impression: Acute hypoxic respiratory failure On mechanical ventilator Sepsis ESRD, on hemodialysis Obesity, BMI 34.7 Events: Remains on vent support Vent settings changed to AC mode; RR 20, VT 500, PEEP 8, FiO2 55-->65% Increased FiO2 requirements. ABG reviewed, notable for alkalemia CXR reviewed; notable for mild left basilar pulmonary airspace disease and small left pleural effusion. Increased O2 requirements - plan for bronchoscopy for BAL and cultures. Off Versed On Fentanyl drip. Hemodialysis today - plan for removal of 2 liters. Blood culture positive - bacteremia, Salmonella species. Continue antibiotics - antibiotics adjusted. Accu-Cheks, ISS. Diurese with Lasix as tolerated HD per Nephrology Monitor renal function Monitor electrolytes. Supplement as necessary. Potassium supplementation Monitor ins and outs. Bronchoscopy done. RML BAL done. Sent for bacterial, fungal and viral cultures. Limited chest ultrasound was done. Compressive Atelectasis. Consolidated lung. No pleural effusion noted. Please see separate procedure notes for details Discussed with Dr. Chadwick. Labs and imaging reviewed. Rest of plan as noted below. Plan: s/p intubation on mechanical ventilator. Vent settings: AC mode; RR 20, VT 500, PEEP 8, FiO2 65% Titrate FIO2 to keep O2 saturation above 90%. VAP bundle. Daily ABG and CXR while intubated Off sedation Fentanyl drip Continue antibiotics. Pressors as necessary for hemodynamic support. Titrate to keep MAP greater than 65 mmHg. Monitor hemoglobin, trending up Accu-Cheks, ISS. HD per Nephrology Monitor renal function Monitor electrolytes. Supplement as necessary. Monitor ins and outs. Diet and lifestyle modifications for weight reduction Obesity - complicates all care GI/DVT prophylaxis. Prognosis: Poor given patient's multiple co-morbidities. Condition: Critical Rest of plan per hospitalist and other consultants. A total of 35 minutes of critical care time was spent reviewing the patient record, examining the patient, making a diagnostic and therapeutic plan, discussing this plan with the medical personnel, following up on diagnostic studies and following the patient for clinical stability excluding any and all procedures. At least 50% of this time was spent in direct, [id number] contact. Thank you Dr. Dai for allowing me to participate in this patient's care. Further recommendations will depend on the patient's clinical course. Please do not hesitate to contact me if you have any questions or concerns. This medical document was created using an electronic medical record system with [employer] dictation system. Although these documentations are being carefully reviewed, there may still be some phonetic and typographical changes. The errors are purely typographical, due to imperfection on the software program, and do not reflect any compromise in the patient's medical care. Dietary Evaluation Review Comments: 1) Initiate Nephro-Haritha @ 1 tb qd 2) If patient remains NPO > 7 days, consider EN/TPN to meet at least 75% of estimated daily needs 3) If GI route is preferred, consider Nepro CarbSteady @ 30 mL/hr goal rate as tolerated. EN regimen will provide 1296 kcals. 58g Pro, and 523 mL free H2O per 24 hrs. Goal rate will meet ~ 92% estimated daily energy needs and ~ 43% estimated daily protein needs. 4) Advance to 60g CCHO renal diet when medically feasible, pending ST approal 5) Refer to outpatient RD/CDCES for weight management 6) Follow-up with cardiology, pulmonology, nephrology, gastroenterology, and hepatology 7) Follow-up with aids social worker r/t polysubstance abuse 8) Continue to monitor I&O, labs, and skin integrity Expected Outcomes/Goals: 1) patient to receive nutrition support within 7 days of NPO status 2) labs and GI symptoms to improve 3) diet to advance 4) f/u in 2-3 days Plan discussed with: Other (DENISSE Engle/Dr. Chadwick) Critical Care Time(min): 35 TIM GE MD Jan 23, 2025 20:16
[2025-01-23] MEDS: Nepro With Carb Steady 1 Liter Bottle NG SCH (20:45)
[2025-01-23] MEDS: AMPICILLIN INJ 1 GM in SODIUM CHL 0.9% 100 ML IV SCH (22:21)
[2025-01-24] VITALS (99 sets, daily range): BP systolic 90–187; BP diastolic 55–104; PULSE 56–86; RESP 12–26; TEMP 98.3–101.3; O2SAT 81–100
[2025-01-24 04:05] LABS: Albumin 3.5 g/dL (3.2-4.8); Anion Gap 13 (5-15); BUN/Creatinine Ratio 43.8 (10.0-20.0); Chloride 103 mmol/L (98-107); Total Protein 5.9 g/dL (5.7-8.2)
[2025-01-24 04:07] LABS: Hematocrit 38.0 % (41.0-53.0); Hemoglobin 12.9 g/dL (13.5-17.5); Mean Corpuscular Hemoglobin 29.3 pg (28.0-32.0); Mean Corpuscular Volume 85.9 fL (80.0-100.0)
[2025-01-24 04:22] LABS: Alanine Aminotransferase 43 U/L (7-40); Alkaline Phosphatase 154 U/L (46-116); Bilirubin, Total 1.7 mg/dL (0.2-1.0); Blood Urea Nitrogen 96 mg/dL (9-23); Calcium 8.6 mg/dL (8.7-10.4); Carbon Dioxide 34 mmol/L (20-31); Glucose 224 mg/dL (74-106); Potassium 2.7 mmol/L (3.5-5.1); Sodium 150 mmol/L (136-145)
[2025-01-24 04:45] LABS: Giant Platelets Few; Stomatocytes Few; Total Cells Counted 100.0 (100)
--- NOTE | 2025-01-24 05:35 | DVH ---
CHEST RADIOGRAPH Indication: Pneumonia Technique: Single frontal view of the chest was obtained COMPARISON: XY CHEST PORTABLE on DOS: 01/23/25, XY CHEST PORTABLE on DOS: 01/21/25, XY CHEST XRAY 1 VIE W on DOS: 01/20/25, XY CHEST XRAY 1 VIEW on DOS: 01/20/25, XY CHEST PORTABLE on DOS: 01/19/25 FINDINGS: Lines and Tubes: Endotracheal tube, enteric catheter, right and left central venous catheter is in sa tisfactory position. Lungs: Patchy bilateral airspace disease. Pleura: No effusion. No pneumothorax. Cardiomediastinal contours: Unremarkable Bones: Unremarkable IMPRESSION: Lines and tubes in satisfactory position. No significant interval change.
[2025-01-24] MEDS: POTASSIUM CHL 20MEQ/100ML 100 ML IV SCH (05:42)
[2025-01-24 07:50] LABS: Base Excess 7.2 mmol/L (-2.0-3.0)
[2025-01-24] MEDS: AMPICILLIN & SULBACTAM SODIUM 3 GM in SODIUM CHL 0.9% 100 ML IV SCH (08:06)
[2025-01-24] MEDS: ACETAMINOPHEN 325 MG TAB PO PRN (09:30)
[2025-01-24] MEDS: CARVEDILOL 3.125 MG TAB PO SCH (10:37)
[2025-01-24] MEDS: NITROGLYCERIN 2% OINT 1GM PKG TD ONE (10:39)
[2025-01-24] MEDS ORDERED: VANCOMYCIN PER PHARMACY 0 MG IV SCH (11:00)
--- NOTE | 2025-01-24 12:45 | DVHPN2 ---
Progress Note Date Seen: Jan 24, 2025 Has the PT tested + for MRSA If YES, has PT been informed?: No Medical Necessity Reason Pt with a Central, PICC or Fol: Yes The following are medically ne: Young Catheter Reason for young catheter: Strict I&O Subjective Patient reports: Other (Patient remains intubated family is bedside) Review of Systems: Deferred Objective vital signs Vital Sign Date Time Temp Pulse Resp B/P (MAP) Pulse Ox O2 Delivery O2 Flow Rate FiO2 01/24/25 12:03 72 116/68 01/24/25 10:53 23 99 85 01/24/25 10:49 102.0 01/24/25 08:00 Mechanical Ventilator+ 01/24/25 08:00 0 Total Intake and Output 01/23/25 01/23/25 01/24/25 15:00 23:00 07:00 Intake Total 320.2 ml 250 ml 237.0 ml Output Total 2100 ml 725 ml Balance 320.2 ml -1850 ml -488.0 ml medications Current Medications Medications Dose Ordered Sig/Natividad Route Start Time Stop Time Status Last Admin Dose Admin Propofol 100 ml @ 3.015 mls/ hr Q24H IV 01/19/25 11:15 01/19/25 22:51 12.06 MLS/HR Midazolam HCl 50 ml @ 1 mls/hr Q24H IV 01/19/25 11:15 01/24/25 12:18 10 MLS/HR Fentanyl Citrate 250 ml @ 2.5 mls/hr Q24H IV 01/19/25 11:15 01/24/25 12:20 20 MLS/HR Pantoprazole Sodium 40 mg BID IV 01/19/25 22:00 01/24/25 10:37 40 MG Thiamine HCl 100 mg DAILY IV 01/20/25 10:00 01/24/25 10:38 100 MG Folic Acid 1 mg/ Dextrose 50.2 ml @ 200.8 mls/ hr DAILY INJ 01/20/25 10:00 01/24/25 10:40 200.8 MLS/HR Polyethylene Glycol 17 gm DAILY PO 01/20/25 10:00 01/24/25 10:38 17 GM Dextrose 50 ml UD PRN IV 01/19/25 13:15 Diagnostic Test (Pha) 1 strip Q6HR 01/23/25 10:00 01/24/25 12:15 1 STRIP Insulin Human Lispro Q6HR SC 01/23/25 10:00 01/24/25 12:17 2 UNITS Amlodipine Besylate 5 mg DAILY PO 01/24/25 10:00 01/24/25 10:38 5 MG Metoclopramide HCl 5 mg Q8HR IV 01/23/25 16:30 01/24/25 05:55 5 MG Enteral Nutritional Formula 1,000 ml 30ML/HR NG 01/23/25 16:30 01/23/25 20:45 1,000 ML Furosemide 40 mg BIDD IV 01/24/25 18:00 Acetaminophen 650 mg Q6HP PRN PO 01/24/25 09:15 01/24/25 09:30 650 MG Carvedilol 3.125 mg Q12HR PO 01/24/25 10:00 01/24/25 10:37 3.125 MG Vancomycin HCl 0 ml @ 0 mls/hr UD IV 01/24/25 11:00 Meropenem 50 ml @ 17 mls/hr Q8HR IV 01/24/25 14:00 UNV Examination: GENERAL:Abnormal, HEENT:Abnormal, MSK:Abnormal (Right finger tips discolored bluish), SKIN:Abnormal, NEURO:Abnormal laboratory and microbiology Laboratory Tests 01/24/25 03:13 Test 01/24/25 03:13 Range/Units Serum Glucose 224 H 74-106 mg/dL Microbiology Date/Time Source Procedure Growth Status 01/23/25 20:14 Lung Pending Resulted 01/23/25 20:14 Lung Pending Resulted 01/23/25 20:14 Lung Pending Resulted 01/23/25 20:14 Lung Pending Resulted 01/23/25 20:14 Lung - Final See Separate Report... 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 Bilateral inguinal hernias extending into the scrotum Severe lumbar disc disease Congestive heart failure with reduced ejection fraction acute on chronic Thrombocytopenia Hypokalemia recs HD today for solute clearance//remains nonoliguric 4 k bath cardio eval k replace prn Catheter issues noted poor blood flow rates noted--recommend IR guided tunneled catheter placement for now Discussed with hospitalist and RN Plan discussed with: Other My Orders My Orders Orders - CAMERON HOLLOWAY MD Procedure Category Date Status Time Furosemide Injection PHA 01/24/25 In Process (Lasix Injection) 18:00 Hemodialysis Orders ORDERS 01/24/25 Transmitted 08:49 Dietary Evaluation Review Comments: 1) Initiate Nephro-Haritha @ 1 tb qd 2) If patient remains NPO > 7 days, consider EN/TPN to meet at least 75% of estimated daily needs 3) If GI route is preferred, consider Nepro CarbSteady @ 30 mL/hr goal rate as tolerated. EN regimen will provide 1296 kcals. 58g Pro, and 523 mL free H2O per 24 hrs. Goal rate will meet ~ 92% estimated daily energy needs and ~ 43% estimated daily protein needs. 4) Advance to 60g CCHO renal diet when medically feasible, pending ST approal 5) Refer to outpatient RD/CDCES for weight management 6) Follow-up with cardiology, pulmonology, nephrology, gastroenterology, and hepatology 7) Follow-up with social media intern r/t polysubstance abuse 8) Continue to monitor I&O, labs, and skin integrity Expected Outcomes/Goals: 1) patient to receive nutrition support within 7 days of NPO status 2) labs and GI symptoms to improve 3) diet to advance 4) f/u in 2-3 days Critical Care Time (mins): 42 CAMERON HOLLOWAY MD Jan 24, 2025 12:45
[2025-01-24] MEDS: ALBUMIN 25% 100 ML IV SCH (13:00)
[2025-01-24] MEDS ORDERED: ALBUMIN 25% 100 ML IV SCH (13:00)
[2025-01-24] MEDS: MEROPENEM 1GM IVPB 50 ML IV SCH (13:44)
[2025-01-24] MEDS: VANCOMYCIN 750mg/150ml 150 ML IV ONE (15:15)
--- NOTE | 2025-01-24 15:51 | DVHPNRES ---
Progress Note Date Seen: Jan 24, 2025 Resident Creating Document: SONA HEARD VANESSA Has the PT tested + for MRSA If YES, has PT been informed?: No Medical Necessity Reason Pt with a Central, PICC or Fol: Yes The following are medically ne: Young Catheter Reason for young catheter: Strict I&O Subjective Review of Systems Patient seen and examined at the bedside. Patient is sedated on mechanical ventilation. Due to sedation, the patient could not provide review of system. WBC has raised, the patient has developed multiple episodes of fever at 101. Ampicillin discontinued, the patient is started back on meropenem and vancomycin. Blood culture repeated. Intervention Radiology consulted for putting tunneled catheter. Objective vital signs Vital Sign Date Time Temp Pulse Resp B/P (MAP) Pulse Ox O2 Delivery O2 Flow Rate FiO2 01/24/25 14:46 75 22 120/67 (84) 99 65 01/24/25 14:00 Mechanical Ventilator+ 01/24/25 14:00 100.6 100.6 01/24/25 08:00 0 Total Intake and Output 01/23/25 01/23/25 01/24/25 15:00 23:00 07:00 Intake Total 320.2 ml 250 ml 237.0 ml Output Total 2100 ml 725 ml Balance 320.2 ml -1850 ml -488.0 ml medications Current Medications Medications Dose Ordered Sig/Natividad Route Start Time Stop Time Status Last Admin Dose Admin Propofol 100 ml @ 3.015 mls/ hr Q24H IV 01/19/25 11:15 01/19/25 22:51 Midazolam HCl 50 ml @ 1 mls/hr Q24H IV 01/19/25 11:15 01/24/25 12:18 Fentanyl Citrate 250 ml @ 2.5 mls/hr Q24H IV 01/19/25 11:15 01/24/25 12:20 Pantoprazole Sodium 40 mg BID IV 01/19/25 22:00 01/24/25 10:37 Thiamine HCl 100 mg DAILY IV 01/20/25 10:00 01/24/25 10:38 Folic Acid 1 mg/ Dextrose 50.2 ml @ 200.8 mls/ hr DAILY INJ 01/20/25 10:00 01/24/25 10:40 Polyethylene Glycol 17 gm DAILY PO 01/20/25 10:00 01/24/25 10:38 Dextrose 50 ml UD PRN IV 01/19/25 13:15 Diagnostic Test (Pha) 1 strip Q6HR 01/23/25 10:00 01/24/25 12:15 Insulin Human Lispro Q6HR SC 01/23/25 10:00 01/24/25 12:17 Amlodipine Besylate 5 mg DAILY PO 01/24/25 10:00 01/24/25 10:38 Metoclopramide HCl 5 mg Q8HR IV 01/23/25 16:30 01/24/25 13:43 Enteral Nutritional Formula 1,000 ml 30ML/HR NG 01/23/25 16:30 01/23/25 20:45 Furosemide 40 mg BIDD IV 01/24/25 18:00 Acetaminophen 650 mg Q6HP PRN PO 01/24/25 09:15 01/24/25 09:30 Carvedilol 3.125 mg Q12HR PO 01/24/25 10:00 01/24/25 10:37 Vancomycin HCl 0 ml @ 0 mls/hr UD IV 01/24/25 11:00 Meropenem 50 ml @ 17 mls/hr Q12HR IV 01/24/25 13:19 01/24/25 13:44 Albumin Human 100 ml @ 100 mls/hr Q1HR IV 01/24/25 13:00 01/24/25 15:59 Examination General: RASS -4, afebrile, mucosae are moist Cardiovascular: Normal S1 and S2. No murmurs, gallops or rubs Respiratory: Mechanically assisted ventilation, equal bilateral airway entree. Clear lung sounds on auscultation Abdomen: Soft, nontender, no organomegaly, normal bowel sounds MSK/skin: Right hand fingers are blue (involve more distal phalanx) and warm Neurological: Orientation cannot be assessed. No apparent motor no sensitive deficits. Pupils are isocoric and reactive laboratory and microbiology Laboratory Tests 01/24/25 03:13 Test 01/24/25 03:13 Range/Units Serum Glucose 224 H 74-106 mg/dL Microbiology Date/Time Source Procedure Growth Status 01/23/25 20:14 Lung Pending Resulted 01/23/25 20:14 Lung Pending Resulted 01/23/25 20:14 Lung Pending Resulted 01/23/25 20:14 Lung Pending Resulted 01/23/25 20:14 Lung - Final See Separate Report... Resulted 01/23/25 20:14 Bronchial Washings Gram Stain - Final Resulted 01/23/25 20:14 Bronchial Washings Respiratory Culture - Preliminary Resulted 01/23/25 13:10 Blood Blood Culture - Preliminary NO GROWTH AFTER 24 HOURS OF INCUBATION. Resulted 01/18/25 06:08 Voided Urine Urine Culture - Final Complete Labs and/or images reviewed: Labs reviewed by me, Image(s) reviewed by me Problem List/Assessment/Plan Problem List/Assessment/Plan This is a 60-year-old male with past medical history of alcohol use disorder, current heavy smoker, gout, dyslipidemia, came to the hospital due to low back pain. On 2nd day of admission, the patient is stabilized, developed AFib and SVT, underwent cardioversion and adenosine was given subsequently, due to respiratory distress and inability to maintain respiratory tract, the patient was sedated, intubated and put on mechanical ventilation. NEURO: Acute metabolic/toxic encephalopathy likely due to sepsis/alcohol use disorder * Sedated, on MV with RASS score -4 CARDIOVASCULAR: ? Cardiogenic shock, likely due to AFib with RVR/SVT Atrial fibrillation with RVR/SVT Acquired coagulopathy ? Acute on chronic Heart failure with reduced ejection fraction NSTEMI, likely type 2 due to above Sinus bradycardia * Patient was 2 times reverted to NSR with cardioversion, subsequently put on amiodarone drip for 2 days, discontinued due to regaining sinus rhythm and bradycardia * EKG upon admission showed sinus rhythm with no significant ST or T-wave changes * Subsequent EKGs showed AFib with RVR and SVT * Today, EKGs shows sinus bradycardia with no significant ST or T-wave changes * Echo shows, LVEF 45% severe pulmonary hypertension (RVSP 64) * BNP is raised at 450s * Cardiology is on the board, recommended medical management PULMONARY: Acute hypoxic respiratory failure, likely due to pneumonia Pneumonia, likely due to Gram-positive/Gram-negative bacteria/viral ? Pulmonary hypertension Possible obstructive sleep apnea Atelectasis * CT scan shows, bilateral small pleural effusion * Chest x-ray shows, closed left costophrenic angle * Bronchoscopy performed on 01/16/2024, had copious amount of mucus on bilateral main bronchus, sample sent for culture * Pulmonology is on the board GASTROINTESTINAL: ? Upper GI bleeding, likely due to liver cirrhosis/portal hypertension Alcohol use disorder Hepatomegaly and hepatic steatosis, likely due to alcohol use disorder Splenomegaly, likely due to above Bilateral indirect inguinal hernia, fatigue content extending to the scrotum Diverticulosis * GI is on the board, recommended medical management at the moment * Thiamine and folic acid GENITOURINARY: JOSE on possible CKD, likely VMN (baseline record not available) * Nephrology on the board, performed 3 session of HD, last session on 01/24/2025 * Lasix 40 mg b.i.d. * Consulted IR for tunneled catheter ENDOCRINE: Newly diagnosed Diabetes, with hyperglycemia Dyslipidemia Thyroid nodule Obesity * HBA1c is 6.5 * Lispro subcutaneous q.6 hours METABOLIC: Gout Hypokalemia Hypocalcemia Mild hypernatremia HEME: Severe thrombocytopenia, likely due to liver cirrhosis Mild anemia, normocytic normochromic * Status post transfusion of 1 unit RBC, 1 units FFP, and 1 unit platelet INFECTIOUS DISEASE: ? Septic shock likely due to pneumonia/bacteremia * Blood culture shows Gram-negative right, Salmonella sensitive to ampicillin * Sputum culture shows E coli, sensitive to ampicillin * Vancomycin and cefepime was given for 5 days, DC on 01/15/2025 * Ampicillin IV started on 01/15/2025, due to episodes of fever, ampicillin discontinued on 01/24/2025 * Over 01/16/24, the patient had multiple episodes of fever, patient is started back on vancomycin and meropenem on 01/24/2025 and blood culture sent * Acetaminophen p.r.n. for fever DERMATOLOGY: Right hand acute PAD * Doppler ultrasound shows no significant arterial disease * Amlodipine 5 mg daily * Local and sublingual nitroglycerin MUSCULOSKELETAL: * Chronic back pain, due to severe lumbar disc disease DIET: Nepro 30 mL/hr DVT prophylax: Due to severe thrombocytopenia, no anticoagulant is indicated, SCDs GI prophylaxis: Protonix 40 mg b.i.d. Bowel regimen: MiraLax 17 g p.o. daily Code status: Code status discussed with the family (son), full code LINES/DRAINS/ACCESS: * ETT: Intubated on 01/19/2025 * IV access: Left internal jugular vein, placed on 01/19/2025 * Drips: Versed (10) and fentanyl * Young catheter: DISPOSITION: ICU status Patient's status discussed with patient's son, sister, and [id number] at the bedside. Critical care time spent more than 78 minutes, including patient care, chart review, and updating the family. Excluding any procedures. Case discussed with Dr. Chadwick Plan discussed with: Patient, Other (RN) My Orders My Orders Orders - SONA HEARD RESDIVIRI Procedure Category Date Status Time Chest Xray 1 View XY 01/24/25 Resulted 04:00 Abg W/ Co-Ox RT 01/24/25 Logged 04:00 Communication Order ORDERS 01/23/25 Transmitted 11:00 Communication Order ORDERS 01/23/25 Transmitted 16:00 Acetaminophen Tablet PHA 01/24/25 In Process (Tylenol Tablet) 09:15 Vancomycin Per PHA 01/24/25 In Process Pharmacy 11:00 Meropenem 1gm Ivpb PHA 01/24/25 In Process (Merrem 1gm/ Ns) 13:19 Complete Blood Count LAB 01/25/25 Verified 04:00 Creatinine LAB 01/25/25 Verified 04:00 Vancomycin,Random LAB 01/25/25 Verified 04:00 * Radiologist Consult CONS 01/24/25 Transmitted 13:08 Chest Portable XY 01/24/25 Logged 14:43 Dietary Evaluation Review Comments: 1) Initiate Nephro-Haritha @ 1 tb qd 2) If patient remains NPO > 7 days, consider EN/TPN to meet at least 75% of estimated daily needs 3) If GI route is preferred, consider Nepro CarbSteady @ 30 mL/hr goal rate as tolerated. EN regimen will provide 1296 kcals. 58g Pro, and 523 mL free H2O per 24 hrs. Goal rate will meet ~ 92% estimated daily energy needs and ~ 43% estimated daily protein needs. 4) Advance to 60g CCHO renal diet when medically feasible, pending ST approal 5) Refer to outpatient RD/CDCES for weight management 6) Follow-up with cardiology, pulmonology, nephrology, gastroenterology, and hepatology 7) Follow-up with professor of social work r/t polysubstance abuse 8) Continue to monitor I&O, labs, and skin integrity Expected Outcomes/Goals: 1) patient to receive nutrition support within 7 days of NPO status 2) labs and GI symptoms to improve 3) diet to advance 4) f/u in 2-3 days Date of Service: Jan 24, 2025 Billing Provider: PINA CHADWICK MD Common Visit Codes: 46813-[id number] CARE 30-74 MIN SONA HEARD Jan 24, 2025 15:51 PINA CHADWICK MD Jan 24, 2025 20:08
--- NOTE | 2025-01-24 16:33 | DVH ---
CHEST RADIOGRAPH REASON FOR EXAM: OG TUBE PLACEMENT COMPARISON: XY CHEST XRAY 1 VIEW on DOS: 01/24/25, XY CHEST PORTABLE on DOS: 01/23/25, XY CHEST PORTABL E on DOS: 01/21/25, XY CHEST XRAY 1 VIEW on DOS: 01/20/25, XY CHEST XRAY 1 VIEW on DOS: 01/20/25 TECHNIQUE: One view of the chest is provided FINDINGS: There is an endotracheal tube terminating approximately 2.0 cm from the vin. There is a left neck catheter with the tip projecting over the area of the cavoatrial junction. There is a right neck dialysis catheter with the tip projecting over the upper SVC. There is an enteric tube with the tip and side hole projecting over the stomach. IMPRESSION: Enteric tube tip and side hole project over the stomach. Other lines and tubes as described above.
--- NOTE | 2025-01-24 16:47 | DVHPN2 ---
Consult Progress Note Subjective Other Systems: Patient remains in normal sinus rhythm on radarman Objective vital signs Vital Sign Date Time Temp Pulse Resp B/P (MAP) Pulse Ox O2 Delivery O2 Flow Rate FiO2 01/24/25 16:16 73 21 120/69 (86) 97 65 01/24/25 16:00 Mechanical Ventilator+ 01/24/25 14:00 100.6 100.6 01/24/25 08:00 0 Total Intake and Output 01/23/25 01/23/25 01/24/25 15:00 23:00 07:00 Intake Total 320.2 ml 250 ml 237.0 ml Output Total 2100 ml 725 ml Balance 320.2 ml -1850 ml -488.0 ml medications Current Medications Medications Dose Ordered Sig/Natividad Route Start Time Stop Time Status Last Admin Dose Admin Propofol 100 ml @ 3.015 mls/ hr Q24H IV 01/19/25 11:15 01/19/25 22:51 12.06 MLS/HR Midazolam HCl 50 ml @ 1 mls/hr Q24H IV 01/19/25 11:15 01/24/25 12:18 10 MLS/HR Fentanyl Citrate 250 ml @ 2.5 mls/hr Q24H IV 01/19/25 11:15 01/24/25 12:20 20 MLS/HR Pantoprazole Sodium 40 mg BID IV 01/19/25 22:00 01/24/25 10:37 40 MG Thiamine HCl 100 mg DAILY IV 01/20/25 10:00 01/24/25 10:38 100 MG Folic Acid 1 mg/ Dextrose 50.2 ml @ 200.8 mls/ hr DAILY INJ 01/20/25 10:00 01/24/25 10:40 200.8 MLS/HR Polyethylene Glycol 17 gm DAILY PO 01/20/25 10:00 01/24/25 10:38 17 GM Dextrose 50 ml UD PRN IV 01/19/25 13:15 Diagnostic Test (Pha) 1 strip Q6HR 01/23/25 10:00 01/24/25 12:15 1 STRIP Insulin Human Lispro Q6HR SC 01/23/25 10:00 01/24/25 12:17 2 UNITS Amlodipine Besylate 5 mg DAILY PO 01/24/25 10:00 01/24/25 10:38 5 MG Metoclopramide HCl 5 mg Q8HR IV 01/23/25 16:30 01/24/25 13:43 5 MG Enteral Nutritional Formula 1,000 ml 30ML/HR NG 01/23/25 16:30 01/23/25 20:45 1,000 ML Furosemide 40 mg BIDD IV 01/24/25 18:00 Acetaminophen 650 mg Q6HP PRN PO 01/24/25 09:15 01/24/25 09:30 650 MG Carvedilol 3.125 mg Q12HR PO 01/24/25 10:00 01/24/25 10:37 3.125 MG Vancomycin HCl 0 ml @ 0 mls/hr UD IV 01/24/25 11:00 Meropenem 50 ml @ 17 mls/hr Q12HR IV 01/24/25 13:19 01/24/25 13:44 17 MLS/HR Examination: GENERAL:Abnormal, LUNGS:Abnormal (Mechanically ventilated), CVS:Normal, SKIN:Abnormal (Right hand fingers necrotic), NEURO:Abnormal (Chemically sedated) laboratory and microbiology Laboratory Tests 01/24/25 03:13 Test 01/24/25 03:13 Range/Units Serum Glucose 224 H 74-106 mg/dL Problem List/Assessment/Plan Problem List/Assessment/Plan Atrial fibrillation with rapid ventricular response status post direct current cardioversion, now normal sinus rhythm Acute hypoxic respiratory failure Acute on chronic HFmrEF, NYHA class IV, newly diagnosed Septic shock Bacteremia Severe thrombocytopenia Type 2 diabetes mellitus, newly diagnosed Pulmonary hypertension, severe degree Alcohol use disorder Upper GI bleed Transaminitis Acute kidney injury Liver cirrhosis Tobacco use History of methamphetamine use Morbid obesity Medical noncompliance Plan/Recommendations (Dr. Sloan): * Transthoracic echocardiogram reveals EF 45%, RVSP 64 mmHg * Slowly introduce guideline directed medical therapy for CHF as tolerated by BP * [id number] VASc score: 2 points, HAS-BLED score: 3 points * Hold off anticoagulation given severe thrombocytopenia. Continue SCDs * Beta-blockers and antiarrhythmic agents were held given patient has episodes of bradycardia * 01/24/25: Primary team restarted on beta-blockers, continue closely monitor for bradycardia * Monitor and replete electrolytes as needed * Closely monitor hemoglobin and hematocrit, transfuse as needed * Close Cardiac surveillance Case discussed with . On physical assessment today, patient noted to have necrotic fingers on right hand. A right upper extremity arterial duplex was ordered by primary care team which shows no significant stenosis. Given patient severely low platelet count, the patient would not be an ideal candidate for any invasive cardiac procedures. Thank you for allowing us to care for this patient. Please call with any questions or concerns. Critical care time spent: 38 minutes. This medical document was created using an electronic medical record system with voice recognition software and computerized dictation system. Although this document has been carefully reviewed, there might still be some phonetic and typographical errors. Occasional wrong-word or ``sound-alike substitutions may have occurred due to the inherent limitations of voice recognition software. These areas are purely typographical due to imperfections of the software programs and do not reflect any compromise in the patient's medical care. Please read the chart carefully and recognize, using context, where these substitutions have occurred. Plan discussed with: Other (Bedside RN) Dietary Evaluation Review Comments: 1) Initiate Nephro-Haritha @ 1 tb qd 2) If patient remains NPO > 7 days, consider EN/TPN to meet at least 75% of estimated daily needs 3) If GI route is preferred, consider Nepro CarbSteady @ 30 mL/hr goal rate as tolerated. EN regimen will provide 1296 kcals. 58g Pro, and 523 mL free H2O per 24 hrs. Goal rate will meet ~ 92% estimated daily energy needs and ~ 43% estimated daily protein needs. 4) Advance to 60g CCHO renal diet when medically feasible, pending ST approal 5) Refer to outpatient RD/CDCES for weight management 6) Follow-up with cardiology, pulmonology, nephrology, gastroenterology, and hepatology 7) Follow-up with psychiatric social worker r/t polysubstance abuse 8) Continue to monitor I&O, labs, and skin integrity Expected Outcomes/Goals: 1) patient to receive nutrition support within 7 days of NPO status 2) labs and GI symptoms to improve 3) diet to advance 4) f/u in 2-3 days Date of Service: Jan 24, 2025 Billing Provider: JOHN PEARCE Common Visit Codes: [id number] CARE 30-74 MIN JOHN PEARCE Jan 24, 2025 16:47
[2025-01-24] MEDS: FUROSEMIDE 40 MG/4 ML VIAL IV SCH (17:35)
--- NOTE | 2025-01-24 20:20 | DVHNC2 ---
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
--- NOTE | 2025-01-24 21:13 | DVHPN2 ---
Progress Note Date Seen: Jan 24, 2025 Resident Creating Document: NATALY BURNETTE RESIDENT Has the PT tested + for MRSA If YES, has PT been informed?: No Medical Necessity Reason Pt with a Central, PICC or Fol: Yes The following are medically ne: Young Catheter Reason for young catheter: Strict I&O Subjective Review of Systems 01/24/25 * Episodes of large NG aspirate noted; old NG tube removed, new NG tube placed and confirmed via chest X-ray with tip and side hole over the stomach. * Feeds: Nepro with Carb Steady via NG at 30 mL/hr, restarted with caution due to prior high residuals. * Continued IV Protonix and IV Reglan. * Meropenem and Vancomycin continued for sepsis and pneumonia. * No new episodes of GI bleeding; NG aspirate non-bloody. * Febrile spikes to 100.2F, WBC 11.5 (uptrending). * Enteral nutrition and GI prophylaxis are ongoing. Brief Gist of Todays Progress * NG tube replaced and feeds resumed at lower rate. * No fresh GI bleed; Hgb stable at 11.5. * Antibiotics escalated due to persistent fevers and prior cultures. * Patient remains ventilated (FiO 55%, PEEP 8, VT 500, RR 20) and on dialysis for JOSE. * GI function is being closely monitored for feed tolerance and bleeding. Review of Systems (Unable to obtain due to sedation) * GI: No melena or hematemesis. High NG residuals previously, currently improving. * Nutrition: Receiving NG feeds Objective vital signs Vital Sign Date Time Temp Pulse Resp B/P (MAP) Pulse Ox O2 Delivery O2 Flow Rate FiO2 01/24/25 20:00 20 100 Mechanical Ventilator+ 55 55 01/24/25 20:00 70 01/24/25 19:00 100.2 01/24/25 18:45 106/65 (79) 01/24/25 08:00 0 Total Intake and Output 01/23/25 01/23/25 01/24/25 15:00 23:00 07:00 Intake Total 320.2 ml 250 ml 237.0 ml Output Total 2100 ml 725 ml Balance 320.2 ml -1850 ml -488.0 ml medications Current Medications Medications Dose Ordered Sig/Natividad Route Start Time Stop Time Status Last Admin Dose Admin Propofol 100 ml @ 3.015 mls/ hr Q24H IV 01/19/25 11:15 01/19/25 22:51 12.06 MLS/HR Midazolam HCl 50 ml @ 1 mls/hr Q24H IV 01/19/25 11:15 01/24/25 17:36 10 MLS/HR Fentanyl Citrate 250 ml @ 2.5 mls/hr Q24H IV 01/19/25 11:15 01/24/25 12:20 20 MLS/HR Pantoprazole Sodium 40 mg BID IV 01/19/25 22:00 01/24/25 10:37 40 MG Thiamine HCl 100 mg DAILY IV 01/20/25 10:00 01/24/25 10:38 100 MG Folic Acid 1 mg/ Dextrose 50.2 ml @ 200.8 mls/ hr DAILY INJ 01/20/25 10:00 01/24/25 10:40 200.8 MLS/HR Polyethylene Glycol 17 gm DAILY PO 01/20/25 10:00 01/24/25 10:38 17 GM Dextrose 50 ml UD PRN IV 01/19/25 13:15 Diagnostic Test (Pha) 1 strip Q6HR 01/23/25 10:00 01/24/25 17:37 1 STRIP Insulin Human Lispro Q6HR SC 01/23/25 10:00 01/24/25 17:55 1 UNITS Amlodipine Besylate 5 mg DAILY PO 01/24/25 10:00 01/24/25 10:38 5 MG Metoclopramide HCl 5 mg Q8HR IV 01/23/25 16:30 01/24/25 13:43 5 MG Enteral Nutritional Formula 1,000 ml 30ML/HR NG 01/23/25 16:30 01/23/25 20:45 1,000 ML Furosemide 40 mg BIDD IV 01/24/25 18:00 01/24/25 17:35 40 MG Acetaminophen 650 mg Q6HP PRN PO 01/24/25 09:15 01/24/25 17:42 650 MG Carvedilol 3.125 mg Q12HR PO 01/24/25 10:00 01/24/25 10:37 3.125 MG Vancomycin HCl 0 ml @ 0 mls/hr UD IV 01/24/25 11:00 Meropenem 50 ml @ 17 mls/hr Q12HR IV 01/24/25 13:19 01/24/25 13:44 17 MLS/HR Sennosides 8.6 mg HS PO 01/24/25 22:00 Examination * General: RASS -4, sedated, intubated, critically ill. * Abdomen: Soft, non-tender, no organomegaly, normal bowel sounds. * NG Tube: New tube in place, aspirate clear, no blood. * Other systems: Stable on support. laboratory and microbiology Laboratory Tests 01/24/25 17:47 01/24/25 03:13 Test 01/24/25 03:13 Range/Units Serum Glucose 224 H 74-106 mg/dL Microbiology Date/Time Source Procedure Growth Status 01/23/25 20:14 Lung Pending Resulted 01/23/25 20:14 Lung Pending Resulted 01/23/25 20:14 Lung Pending Resulted 01/23/25 20:14 Lung Pending Resulted 01/23/25 20:14 Lung - Final See Separate Report... Resulted 01/23/25 20:14 Bronchial Washings Gram Stain - Final Resulted 01/23/25 20:14 Bronchial Washings Respiratory Culture - Preliminary Resulted 01/23/25 13:10 Blood Blood Culture - Preliminary NO GROWTH AFTER 24 HOURS OF INCUBATION. Resulted 01/18/25 06:08 Voided Urine Urine Culture - Final Complete Problem List/Assessment/Plan Problem List/Assessment/Plan Assessment 1. Upper GI bleeding resolved/stable * No active bleeding; NG aspirate clear; hemoglobin stable. 2. Alcoholic liver cirrhosis with portal hypertension * MELD 26, risk of recurrent GI bleed; coagulopathy present. 3. Enteral feeding intolerance with prior high residuals * Improving with NG replacement and slow feeding rate. 4. Critical illness-related gastroparesis * Managed with IV metoclopramide. 5. Severe sepsis (Salmonella bacteremia) * Receiving IV meropenem and vancomycin. 6. Critical illness requiring mechanical ventilation and dialysis * Ongoing multi-organ support. Differential Diagnoses (GI Focused) * Stress gastritis vs. portal hypertensive gastropathy * Peptic ulcer disease (controlled, no active bleed) * Critical illness-related gastroparesis * Aspiration due to NG feeds and ventilation Plan GI System * Nutrition: * Continue Nepro with Carb Steady via NG at 30 mL/hr. * Monitor residuals every 4 hours; hold feeds if residuals >250 mL. * Consider promotility agent adjustment if intolerance recurs. * Prophylaxis: * IV Protonix 40 mg BID for stress ulcer and variceal bleed prevention. * Maintain head-of-bed elevation >30. * Medications: * Continue IV Reglan 5 mg q8h. * Continue IV Meropenem and Vancomycin for infection control. * Monitoring: * Daily CBC, CMP, LFTs, INR, and strict I&O. * NG aspirate monitoring for bleeding. * Continue GI surveillance for recurrent bleed or feed intolerance. * No endoscopic intervention at this time unless rebleeding occurs. * Monitor LFTs, INR, and ammonia daily. * Avoid hepatotoxic medications. * Continue supportive care for cirrhosis. * Aspiration: Maintain HOB elevation >30. Case discussed in detail with the attending physician, including the clinical presentation, diagnostic workup, and comprehensive management plan. Plan discussed with: Other (nurse) Dietary Evaluation Review Comments: 1) Initiate Nephro-Haritha @ 1 tb qd 2) If patient remains NPO > 7 days, consider EN/TPN to meet at least 75% of estimated daily needs 3) If GI route is preferred, consider Nepro CarbSteady @ 30 mL/hr goal rate as tolerated. EN regimen will provide 1296 kcals. 58g Pro, and 523 mL free H2O per 24 hrs. Goal rate will meet ~ 92% estimated daily energy needs and ~ 43% estimated daily protein needs. 4) Advance to 60g CCHO renal diet when medically feasible, pending ST approal 5) Refer to outpatient RD/CDCES for weight management 6) Follow-up with cardiology, pulmonology, nephrology, gastroenterology, and hepatology 7) Follow-up with bilingual social worker r/t polysubstance abuse 8) Continue to monitor I&O, labs, and skin integrity Expected Outcomes/Goals: 1) patient to receive nutrition support within 7 days of NPO status 2) labs and GI symptoms to improve 3) diet to advance 4) f/u in 2-3 days NATALY BURNETTE RESIDENT Jan 24, 2025 21:13
[2025-01-24] MEDS: SENNA 8.6 MG TAB PO SCH (22:13)
--- NOTE | 2025-01-24 23:53 | DVHPN2 ---
Progress Note - Dictate Date Seen: Jan 24, 2025 Has the PT tested + for MRSA If YES, has PT been informed?: No Medical Necessity Reason Pt with a Central, PICC or Fol: Yes The following are medically ne: Young Catheter Reason for young catheter: Strict I&O Subjective [facility] [place] Patient seen and examined at bedside. Sedated, intubated on mechanical ventilator. Overnight events reviewed. vital signs Vital Sign Date Time Temp Pulse Resp B/P (MAP) Pulse Ox O2 Delivery O2 Flow Rate FiO2 01/24/25 23:15 73 20 121/70 (87) 100 01/24/25 22:00 45 01/24/25 22:00 Mechanical Ventilator+ 01/24/25 20:00 100.2 100.2 01/24/25 08:00 0 Total Intake and Output 01/23/25 01/23/25 01/24/25 15:00 23:00 07:00 Intake Total 320.2 ml 250 ml 237.0 ml Output Total 2100 ml 725 ml Balance 320.2 ml -1850 ml -488.0 ml medications Current Medications Medications Dose Ordered Sig/Natividad Route Start Time Stop Time Status Last Admin Dose Admin Propofol 100 ml @ 3.015 mls/ hr Q24H IV 01/19/25 11:15 01/19/25 22:51 12.06 MLS/HR Midazolam HCl 50 ml @ 1 mls/hr Q24H IV 01/19/25 11:15 01/24/25 17:36 10 MLS/HR Fentanyl Citrate 250 ml @ 2.5 mls/hr Q24H IV 01/19/25 11:15 01/24/25 12:20 20 MLS/HR Pantoprazole Sodium 40 mg BID IV 01/19/25 22:00 01/24/25 22:13 40 MG Thiamine HCl 100 mg DAILY IV 01/20/25 10:00 01/24/25 10:38 100 MG Folic Acid 1 mg/ Dextrose 50.2 ml @ 200.8 mls/ hr DAILY INJ 01/20/25 10:00 01/24/25 10:40 200.8 MLS/HR Polyethylene Glycol 17 gm DAILY PO 01/20/25 10:00 01/24/25 10:38 17 GM Dextrose 50 ml UD PRN IV 01/19/25 13:15 Diagnostic Test (Pha) 1 strip Q6HR 01/23/25 10:00 01/24/25 17:37 1 STRIP Insulin Human Lispro Q6HR SC 01/23/25 10:00 01/24/25 17:55 1 UNITS Amlodipine Besylate 5 mg DAILY PO 01/24/25 10:00 01/24/25 10:38 5 MG Metoclopramide HCl 5 mg Q8HR IV 01/23/25 16:30 01/24/25 22:13 5 MG Enteral Nutritional Formula 1,000 ml 30ML/HR NG 01/23/25 16:30 01/24/25 22:01 1,000 ML Furosemide 40 mg BIDD IV 01/24/25 18:00 01/24/25 17:35 40 MG Acetaminophen 650 mg Q6HP PRN PO 01/24/25 09:15 01/24/25 17:42 650 MG Carvedilol 3.125 mg Q12HR PO 01/24/25 10:00 01/24/25 22:14 3.125 MG Vancomycin HCl 0 ml @ 0 mls/hr UD IV 01/24/25 11:00 Meropenem 50 ml @ 17 mls/hr Q12HR IV 01/24/25 13:19 01/24/25 22:06 17 MLS/HR Sennosides 8.6 mg HS PO 01/24/25 22:00 01/24/25 22:13 8.6 MG objective Gen.: Patient lying in bed in medical ICU. Sedated, intubated on mechanical ventilator. Head: Normocephalic, atraumatic. Eyes: PERRLA. Ears: Normal external anatomy. Throat: Endotracheal tube and orogastric tube in place. Neck: Supple, trachea midline. Chest: Transmitted breath sounds bilaterally. Decreased air entry bilaterally. No wheezing. Bibasilar crackles. Cardiovascular: Positive S1, positive S2. Regular rate and rhythm. Abdomen: Positive bowel sounds in all 4 quadrants. Soft, nontender, nondistended. : Young in place. Normal external genitalia. Rectal: Deferred. Skin: Warm, dry. Intact. Extremities: 2+ radial pulses bilaterally. No lower extremity edema. Neuro: Sedated. laboratory and microbiology Laboratory Tests 01/24/25 17:47 01/24/25 03:13 Test 01/24/25 03:13 Range/Units Serum Glucose 224 H 74-106 mg/dL Assessment/Plan Impression: Acute hypoxic respiratory failure On mechanical ventilator Sepsis ESRD, on hemodialysis Obesity, BMI 34.7 Events: Remains on vent support Vent settings: AC mode; RR 20, VT 500, PEEP 8, FiO2 55% Taper FiO2 as tolerated. ABG reviewed, notable for alkalemia CXR shows no pleural effusion or pneumothorax. Devices in place. Sedated on Versed On Fentanyl drip. Hemodialysis performed today Plan for tunneled cath in AM. Blood culture positive - bacteremia, Salmonella species. Continue antibiotics - antibiotics adjusted Patient is febrile - given Tylenol and cooling measures. Note, FiO2 requirements had gone up to 85% and 100% overnight. Accu-Cheks, ISS. Diurese with Lasix as tolerated HD per Nephrology Monitor renal function Monitor electrolytes. Supplement as necessary. Potassium supplementation Monitor ins and outs. Tube feeds for nutritional support S/p therapeutic bronchoscopy with RML BAL yesterday (01/23); cleared mucous plugging from L6-L10 and R1-R10. Sent for bacterial, fungal and viral cultures - follow up results. Limited chest ultrasound on 01/23 revealed compressive atelectasis. Consolidated lung. No pleural effusion noted. Please see separate procedure notes for details Labs and imaging reviewed. Rest of plan as noted below. Plan: s/p intubation on mechanical ventilator. Vent settings: AC mode; RR 20, VT 500, PEEP 8, FiO2 55% Titrate FIO2 to keep O2 saturation above 90%. VAP bundle. Daily ABG and CXR while intubated Sedate for vent synchrony Continue antibiotics. Pressors as necessary for hemodynamic support. Titrate to keep MAP greater than 65 mmHg. Monitor hemoglobin, trending up Accu-Cheks, ISS. HD per Nephrology Monitor renal function Monitor electrolytes. Supplement as necessary. Monitor ins and outs. Diet and lifestyle modifications for weight reduction Obesity - complicates all care GI/DVT prophylaxis. Prognosis: Poor given patient's multiple co-morbidities. Condition: Critical Rest of plan per hospitalist and other consultants. A total of 35 minutes of critical care time was spent reviewing the patient record, examining the patient, making a diagnostic and therapeutic plan, discussing this plan with the medical personnel, following up on diagnostic studies and following the patient for clinical stability excluding any and all procedures. At least 50% of this time was spent in direct, [id number] contact. Thank you Dr. Dai for allowing me to participate in this patient's care. Further recommendations will depend on the patient's clinical course. Please do not hesitate to contact me if you have any questions or concerns. This medical document was created using an electronic medical record system with [employer]ation system. Although these documentations are being carefully reviewed, there may still be some phonetic and typographical changes. The errors are purely typographical, due to imperfection on the software program, and do not reflect any compromise in the patient's medical care. Dietary Evaluation Review Comments: 1) Initiate Nephro-Haritha @ 1 tb qd 2) If patient remains NPO > 7 days, consider EN/TPN to meet at least 75% of estimated daily needs 3) If GI route is preferred, consider Nepro CarbSteady @ 30 mL/hr goal rate as tolerated. EN regimen will provide 1296 kcals. 58g Pro, and 523 mL free H2O per 24 hrs. Goal rate will meet ~ 92% estimated daily energy needs and ~ 43% estimated daily protein needs. 4) Advance to 60g CCHO renal diet when medically feasible, pending ST approal 5) Refer to outpatient RD/CDCES for weight management 6) Follow-up with cardiology, pulmonology, nephrology, gastroenterology, and hepatology 7) Follow-up with community mental health social worker r/t polysubstance abuse 8) Continue to monitor I&O, labs, and skin integrity Expected Outcomes/Goals: 1) patient to receive nutrition support within 7 days of NPO status 2) labs and GI symptoms to improve 3) diet to advance 4) f/u in 2-3 days Plan discussed with: Other (DENISSE Engle) Critical Care Time(min): 35 TIM GE MD Jan 24, 2025 23:53
[2025-01-25] VITALS (97 sets, daily range): BP systolic 82–180; BP diastolic 43–88; PULSE 65–99; RESP 18–28; TEMP 99.3–100.4; O2SAT 94–100
[2025-01-25] MEDS: POTASSIUM CHL 20MEQ/100ML 100 ML IV ONE (00:07)
[2025-01-25 04:12] LABS: Hematocrit 38.8 % (41.0-53.0); Hemoglobin 13.0 g/dL (13.5-17.5); Mean Corpuscular Hemoglobin 29.3 pg (28.0-32.0); Mean Corpuscular Volume 87.5 fL (80.0-100.0); Nucleated Red Blood Cells % 0.3 %
[2025-01-25 04:22] LABS: Anion Gap 13 (5-15); BUN/Creatinine Ratio 42.4 (10.0-20.0); Carbon Dioxide 28 mmol/L (20-31); Chloride 105 mmol/L (98-107)
[2025-01-25 04:34] LABS: Alanine Aminotransferase 47 U/L (7-40); Albumin 3.1 g/dL (3.2-4.8); Alkaline Phosphatase 201 U/L (46-116); Bilirubin, Total 1.6 mg/dL (0.2-1.0); Blood Urea Nitrogen 78 mg/dL (9-23); Calcium 8.6 mg/dL (8.7-10.4); Glucose 190 mg/dL (74-106); Potassium 3.4 mmol/L (3.5-5.1); Sodium 146 mmol/L (136-145); Total Protein 5.5 g/dL (5.7-8.2)
[2025-01-25 04:49] LABS: INR 1.24 (0.9-1.15); Partial Thromboplastin Time 31.6 SEC (24.5-34.5); Prothrombin Time 12.9 sec (9.3-11.8)
--- NOTE | 2025-01-25 04:59 | DVH ---
CHEST RADIOGRAPH Indication: Pneumonia Technique: Single frontal view of the chest was obtained COMPARISON: XY CHEST PORTABLE on DOS: 01/24/25, XY CHEST XRAY 1 VIEW on DOS: 01/24/25, XY CHEST PORTABL E on DOS: 01/23/25, XY CHEST PORTABLE on DOS: 01/21/25, XY CHEST XRAY 1 VIEW on DOS: 01/20/25 FINDINGS: Lines and Tubes: Unchanged. Lungs: Stable appearing bibasilar pulmonary airspace disease. Pleura: No definite effusion. No pneumothorax. Cardiomediastinal contours: Cardiomegaly. Bones: Unremarkable IMPRESSION: 1. Stable bibasilar pulmonary airspace disease. 2. Lines and tubes unchanged.
[2025-01-25] MEDS: POTASSIUM CHL 20MEQ/100ML 100 ML IV SCH (06:22)
[2025-01-25 06:59] LABS: Base Excess 3.1 mmol/L (-2.0-3.0)
[2025-01-25] MEDS: LIDOCAINE 2%HCL (LOCAL ANESTH.) INJ 10ml MDV ONE (08:08)
[2025-01-25] MEDS: HEPARIN SODIUM (PORCINE) 5000 UNITS/ML 1ML VIAL ONE (08:08)
--- NOTE | 2025-01-25 11:22 | DVH ---
XY Insertion of Venous Cath, HISTORY: HD CATH PL PROCEDURE: Informed consent was obtained. The patient was placed supine on the interventional table. A limited localization ultrasound of the right neck base was obtained. The right neck base and upper chest were prepped with chlorhexidine which was allowed to dry and draped in the usual sterile fashio n. Time out was performed. IV sedation was administered. The skin and the soft tissues were infiltrat ed with 1% Lidocaine. With real-time ultrasound guidance, the internal jugular vein was accessed with a micropuncture kit, and an image documenting patency was recorded to PACS. A subcutaneous tunneled tract was created from the right upper chest to the venotomy site. A 14.5 [place] Path, 19 cm lo ng hemodialysis catheter was advanced through the tunneled tract. Fluoroscopy was used to advance a guidewire through the internal jugular vein into the inferior vena cava. Following serial dilatation, a 15 [place] peel-away sheath was introduced, though which was adva nced the catheter into the right atrium. The catheter tip position was confirmed with fluoroscopy. Th ere was satisfactory flow in both lumens. The catheter lumens were flushed with saline and heparin wa s left indwelling in the catheter. A post-procedure image of the chest was obtained. The neck incisio n site was closed with pressure and dressed sterilely. The catheter was sutured at the skin surface a nd exit site also dressed sterilely. No immediate complication was identified. DAP 0.72 FLUOROSCOPY TIME: 0.7 minutes. SEDATION: Dr. Norberto Kemp was personally responsible for the administration of moderate sedation during the procedure performed, including the use of an independent trained observer who had no other duties during the procedure. The drugs utilized were IV fentanyl and versed (see nursing log for details). The total time of supervision by the attending physician was approximately 30 minutes. FINDINGS: Widely patent right IJV. Post procedure image demonstrates smooth course of the hemodialysi s catheter with the tip in the right atrium. IMPRESSION: Successful placement of 14.[place] Path, 19 cm long hemodialysis catheter through right international trade teacher al jugular vein. Plan: Please contact IR for removal when no longer needed.
--- NOTE | 2025-01-25 12:02 | DVH ---
INDICATION: elevated alk elevated LFT TECHNIQUE: Multiple real-time sonographic images of the abdomen were obtained. COMPARISON: US ABDOMEN LIMITED on DOS: 01/19/25, US KIDNEY on DOS: 01/18/25 FINDINGS: The liver is heterogeneous in echogenicity. The liver measures 18cm. No intrahepatic bilia ry ductal dilatation is noted. There is focal fatty sparing adjacent to the gallbladder fossa. The gallbladder wall measures 0.3 cm and is unremarkable. Gallbladder sludge. The common duct measur es 0.6 cm and is unremarkable. No pericholecystic fluid is noted. The right kidney measures 11cm. No hydronephrosis. The pancreas is not well visualized due to obscuration from bowel gas. The visualized portions of the IVC and aorta are grossly unremarkable. IMPRESSION: Gallbladder sludge. Hepatic steatosis focal fatty sparing adjacent to the gallbladder fossa.
[2025-01-25] MEDS: NITROGLYCERIN 2% OINT 1GM PKG TD SCH (14:18)
--- NOTE | 2025-01-25 14:37 | DVHPN2 ---
Consult Progress Note Subjective Other Systems: Normal sinus rhythm with artifact on quality assurance monitor final Patient remains chemically sedated and mechanically ventilated Objective vital signs Vital Sign Date Time Temp Pulse Resp B/P (MAP) Pulse Ox O2 Delivery O2 Flow Rate FiO2 01/25/25 14:18 104/44 01/25/25 13:37 100.8 01/25/25 13:30 77 21 96 01/25/25 12:22 30 01/25/25 12:00 Mechanical Ventilator+ 01/24/25 08:00 0 Total Intake and Output 01/24/25 01/24/25 01/25/25 15:00 23:00 07:00 Intake Total 585.2 ml 704 ml 643 ml Output Total 1250 ml 625 ml Balance 585.2 ml -546 ml 18 ml medications Current Medications Medications Dose Ordered Sig/Natividad Route Start Time Stop Time Status Last Admin Dose Admin Propofol 100 ml @ 3.015 mls/ hr Q24H IV 01/19/25 11:15 01/19/25 22:51 12.06 MLS/HR Midazolam HCl 50 ml @ 1 mls/hr Q24H IV 01/19/25 11:15 01/25/25 12:03 10 MLS/HR Fentanyl Citrate 250 ml @ 2.5 mls/hr Q24H IV 01/19/25 11:15 01/25/25 12:09 20 MLS/HR Pantoprazole Sodium 40 mg BID IV 01/19/25 22:00 01/25/25 09:31 40 MG Thiamine HCl 100 mg DAILY IV 01/20/25 10:00 01/25/25 09:31 100 MG Folic Acid 1 mg/ Dextrose 50.2 ml @ 200.8 mls/ hr DAILY INJ 01/20/25 10:00 01/25/25 10:17 200.8 MLS/HR Polyethylene Glycol 17 gm DAILY PO 01/20/25 10:00 01/25/25 09:38 17 GM Dextrose 50 ml UD PRN IV 01/19/25 13:15 Diagnostic Test (Pha) 1 strip Q6HR 01/23/25 10:00 01/25/25 12:04 1 STRIP Insulin Human Lispro Q6HR SC 01/23/25 10:00 01/25/25 12:07 1 UNITS Amlodipine Besylate 5 mg DAILY PO 01/24/25 10:00 01/25/25 10:30 5 MG Metoclopramide HCl 5 mg Q8HR IV 01/23/25 16:30 01/25/25 13:38 5 MG Enteral Nutritional Formula 1,000 ml 30ML/HR NG 01/23/25 16:30 01/24/25 22:01 1,000 ML Furosemide 40 mg BIDD IV 01/24/25 18:00 01/25/25 06:32 40 MG Acetaminophen 650 mg Q6HP PRN PO 01/24/25 09:15 01/25/25 13:37 650 MG Carvedilol 3.125 mg Q12HR PO 01/24/25 10:00 01/25/25 09:32 3.125 MG Vancomycin HCl 0 ml @ 0 mls/hr UD IV 01/24/25 11:00 Meropenem 50 ml @ 17 mls/hr Q12HR IV 01/24/25 13:19 01/25/25 09:32 17 MLS/HR Sennosides 8.6 mg HS PO 01/24/25 22:00 01/24/25 22:13 8.6 MG Nitroglycerin 1 pkg Q8HR TD 01/25/25 14:00 01/25/25 14:18 1 PKG Examination: GENERAL:Abnormal, LUNGS:Abnormal (Mechanically ventilated), CVS:Normal, SKIN:Abnormal (Necrotic fingers on right hand), NEURO:Abnormal (Chemically sedated) laboratory and microbiology Laboratory Tests 01/25/25 03:25 Test 01/25/25 03:25 Range/Units Serum Glucose 190 H 74-106 mg/dL Problem List/Assessment/Plan Problem List/Assessment/Plan Atrial fibrillation with rapid ventricular response status post direct current cardioversion, now normal sinus rhythm Acute hypoxic respiratory failure Acute on chronic HFmrEF, NYHA class IV, newly diagnosed Septic shock Bacteremia Severe thrombocytopenia Type 2 diabetes mellitus, newly diagnosed Pulmonary hypertension, severe degree Alcohol use disorder Upper GI bleed Transaminitis Acute kidney injury Liver cirrhosis Tobacco use History of methamphetamine use Morbid obesity Medical noncompliance Plan/Recommendations (Dr. Sloan): * Transthoracic echocardiogram reveals EF 45%, RVSP 64 mmHg * Slowly introduce guideline directed medical therapy for CHF as tolerated by BP. * Recommend to stop calcium channel diane as this is not GDMT guideline * [id number] VASc score: 2 points, HAS-BLED score: 3 points * Hold off anticoagulation given severe thrombocytopenia. Continue SCDs * Beta-blockers and antiarrhythmic agents were held given patient has episodes of bradycardia * 01/24/25: Primary team restarted on beta-blockers, continue closely monitor for bradycardia * Monitor and replete electrolytes as needed * Closely monitor hemoglobin and hematocrit, transfuse as needed * Close Cardiac surveillance Case discussed with . The patient continues to have necrotic fingers on right hand. A right upper extremity arterial duplex was ordered by primary care team which shows no significant stenosis. Given patient severely low platelet count, the patient would not be an ideal candidate for any invasive cardiac procedures. Consider vascular evaluation. Thank you for allowing us to care for this patient. Please call with any questions or concerns. Critical care time spent: 38 minutes. This medical document was created using an electronic medical record system with voice recognition software and computerized dictation system. Although this document has been carefully reviewed, there might still be some phonetic and typographical errors. Occasional wrong-word or ``sound-alike substitutions may have occurred due to the inherent limitations of voice recognition software. These areas are purely typographical due to imperfections of the software programs and do not reflect any compromise in the patient's medical care. Please read the chart carefully and recognize, using context, where these substitutions have occurred. Plan discussed with: Other (Bedside RN) Dietary Evaluation Review Comments: 1) Initiate Nephro-Haritha @ 1 tb qd 2) If patient remains NPO > 7 days, consider EN/TPN to meet at least 75% of estimated daily needs 3) If GI route is preferred, consider Nepro CarbSteady @ 30 mL/hr goal rate as tolerated. EN regimen will provide 1296 kcals. 58g Pro, and 523 mL free H2O per 24 hrs. Goal rate will meet ~ 92% estimated daily energy needs and ~ 43% estimated daily protein needs. 4) Advance to 60g CCHO renal diet when medically feasible, pending ST approal 5) Refer to outpatient RD/CDCES for weight management 6) Follow-up with cardiology, pulmonology, nephrology, gastroenterology, and hepatology 7) Follow-up with social worker masters r/t polysubstance abuse 8) Continue to monitor I&O, labs, and skin integrity Expected Outcomes/Goals: 1) patient to receive nutrition support within 7 days of NPO status 2) labs and GI symptoms to improve 3) diet to advance 4) f/u in 2-3 days Date of Service: Jan 25, 2025 Billing Provider: JOHN PEARCE Common Visit Codes: [id number] CARE 30-74 MIN JOHN PEARCE Jan 25, 2025 14:37
--- NOTE | 2025-01-25 15:24 | DVHPNRES ---
Progress Note Date Seen: Jan 25, 2025 Resident Creating Document: SONA HEARD RYENT Has the PT tested + for MRSA If YES, has PT been informed?: No Medical Necessity Reason Pt with a Central, PICC or Fol: Yes The following are medically ne: Young Catheter Reason for young catheter: Strict I&O Subjective Review of Systems Patient seen and examined at the bedside radiation is sedated and on mechanical ventilation. Review of systems could not obtain. Objective vital signs Vital Sign Date Time Temp Pulse Resp B/P (MAP) Pulse Ox O2 Delivery O2 Flow Rate FiO2 01/25/25 14:30 75 01/25/25 14:18 104/44 01/25/25 14:12 20 99 30 01/25/25 14:00 Mechanical Ventilator+ 01/25/25 13:37 100.8 01/24/25 08:00 0 Total Intake and Output 01/24/25 01/24/25 01/25/25 15:00 23:00 07:00 Intake Total 585.2 ml 704 ml 643 ml Output Total 1250 ml 625 ml Balance 585.2 ml -546 ml 18 ml medications Current Medications Medications Dose Ordered Sig/Natividad Route Start Time Stop Time Status Last Admin Dose Admin Propofol 100 ml @ 3.015 mls/ hr Q24H IV 01/19/25 11:15 01/19/25 22:51 12.06 MLS/HR Midazolam HCl 50 ml @ 1 mls/hr Q24H IV 01/19/25 11:15 01/25/25 12:03 10 MLS/HR Fentanyl Citrate 250 ml @ 2.5 mls/hr Q24H IV 01/19/25 11:15 01/25/25 12:09 20 MLS/HR Pantoprazole Sodium 40 mg BID IV 01/19/25 22:00 01/25/25 09:31 40 MG Thiamine HCl 100 mg DAILY IV 01/20/25 10:00 01/25/25 09:31 100 MG Folic Acid 1 mg/ Dextrose 50.2 ml @ 200.8 mls/ hr DAILY INJ 01/20/25 10:00 01/25/25 10:17 200.8 MLS/HR Polyethylene Glycol 17 gm DAILY PO 01/20/25 10:00 01/25/25 09:38 17 GM Dextrose 50 ml UD PRN IV 01/19/25 13:15 Diagnostic Test (Pha) 1 strip Q6HR 01/23/25 10:00 01/25/25 12:04 1 STRIP Insulin Human Lispro Q6HR SC 01/23/25 10:00 01/25/25 12:07 1 UNITS Amlodipine Besylate 5 mg DAILY PO 01/24/25 10:00 01/25/25 10:30 5 MG Metoclopramide HCl 5 mg Q8HR IV 01/23/25 16:30 01/25/25 13:38 5 MG Enteral Nutritional Formula 1,000 ml 30ML/HR NG 01/23/25 16:30 01/24/25 22:01 1,000 ML Furosemide 40 mg BIDD IV 01/24/25 18:00 01/25/25 06:32 40 MG Acetaminophen 650 mg Q6HP PRN PO 01/24/25 09:15 01/25/25 13:37 650 MG Carvedilol 3.125 mg Q12HR PO 01/24/25 10:00 01/25/25 09:32 3.125 MG Vancomycin HCl 0 ml @ 0 mls/hr UD IV 01/24/25 11:00 Meropenem 50 ml @ 17 mls/hr Q12HR IV 01/24/25 13:19 01/25/25 09:32 17 MLS/HR Sennosides 8.6 mg HS PO 01/24/25 22:00 01/24/25 22:13 8.6 MG Nitroglycerin 1 pkg Q8HR TD 01/25/25 14:00 01/25/25 14:18 1 PKG Examination General: RASS -4, afebrile, mucosae are moist Cardiovascular: Normal S1 and S2. No murmurs, gallops or rubs Respiratory: Mechanically assisted ventilation, equal bilateral airway entree. Clear lung sounds on auscultation Abdomen: Soft, nontender, no organomegaly, normal bowel sounds MSK/skin: Right hand fingers are blue (involve more distal phalanx) and warm Neurological: Orientation cannot be assessed. No apparent motor no sensitive deficits. Pupils are isocoric and reactive laboratory and microbiology Laboratory Tests 01/25/25 03:25 Test 01/25/25 03:25 Range/Units Serum Glucose 190 H 74-106 mg/dL Microbiology Date/Time Source Procedure Growth Status 01/23/25 20:14 Lung Pending Resulted 01/23/25 20:14 Lung Pending Resulted 01/23/25 20:14 Lung Pending Resulted 01/23/25 20:14 Lung Pending Resulted 01/23/25 20:14 Lung - Final See Separate Report... Resulted 01/23/25 20:14 Bronchial Washings Gram Stain - Final Resulted 01/23/25 20:14 Bronchial Washings Respiratory Culture - Preliminary Resulted 01/23/25 13:10 Blood Blood Culture - Preliminary NO GROWTH AFTER 48 HOURS OF INCUBATION. Resulted 01/18/25 06:08 Voided Urine Urine Culture - Final Complete Problem List/Assessment/Plan Problem List/Assessment/Plan This is a 60-year-old male with past medical history of alcohol use disorder, current heavy smoker, gout, dyslipidemia, came to the hospital due to low back pain. On 2nd day of admission, the patient is stabilized, developed AFib and SVT, underwent cardioversion and adenosine was given subsequently, due to respiratory distress and inability to maintain respiratory tract, the patient was sedated, intubated and put on mechanical ventilation. NEURO: Acute metabolic/toxic encephalopathy likely due to sepsis/alcohol use disorder * Sedated, on MV with RASS score -4 CARDIOVASCULAR: ? Cardiogenic shock, likely due to AFib with RVR/SVT Atrial fibrillation with RVR/SVT Acquired coagulopathy ? Acute on chronic Heart failure with reduced ejection fraction NSTEMI, likely type 2 due to above Sinus bradycardia * Patient was 2 times reverted to NSR with cardioversion, subsequently put on amiodarone drip for 2 days, discontinued due to regaining sinus rhythm and bradycardia * EKG upon admission showed sinus rhythm with no significant ST or T-wave changes * Subsequent EKGs showed AFib with RVR and SVT * Today, EKGs shows sinus bradycardia with no significant ST or T-wave changes * Echo shows, LVEF 45% severe pulmonary hypertension (RVSP 64) * BNP is raised at 450s * Cardiology is on the board, recommended medical management PULMONARY: Acute hypoxic respiratory failure, likely due to pneumonia Pneumonia, likely due to Gram-positive/Gram-negative bacteria/viral ? Pulmonary hypertension Possible obstructive sleep apnea Atelectasis * CT scan shows, bilateral small pleural effusion * Chest x-ray shows, closed left costophrenic angle * Bronchoscopy performed on 01/16/2024, had copious amount of mucus on bilateral main bronchus, sample sent for culture * Pulmonology is on the board GASTROINTESTINAL: ? Upper GI bleeding, likely due to liver cirrhosis/portal hypertension Alcohol use disorder Hepatomegaly and hepatic steatosis, likely due to alcohol use disorder Splenomegaly, likely due to above Bilateral indirect inguinal hernia, fatigue content extending to the scrotum Diverticulosis * GI is on the board, recommended medical management at the moment * Thiamine and folic acid GENITOURINARY: JOSE on possible CKD, likely VMN (baseline record not available) * Nephrology on the board, performed 3 session of HD, last session on 01/24/2025 * Lasix 40 mg b.i.d. * Consulted IR for tunneled catheter ENDOCRINE: Newly diagnosed Diabetes, with hyperglycemia Dyslipidemia Thyroid nodule Obesity * HBA1c is 6.5 * Lispro subcutaneous q.6 hours METABOLIC: Gout Hypokalemia Hypocalcemia Mild hypernatremia HEME: Severe thrombocytopenia, likely due to liver cirrhosis Mild anemia, normocytic normochromic * Status post transfusion of 1 unit RBC, 1 units FFP, and 1 unit platelet INFECTIOUS DISEASE: ? Septic shock likely due to pneumonia/bacteremia * Blood culture shows Gram-negative right, Salmonella sensitive to ampicillin * Sputum culture shows E coli, sensitive to ampicillin * Vancomycin and cefepime was given for 5 days, DC on 01/15/2025 * Ampicillin IV started on 01/15/2025, due to episodes of fever, ampicillin discontinued on 01/24/2025 * Over 01/16/24, the patient had multiple episodes of fever, patient is started back on vancomycin and meropenem on 01/24/2025 and blood culture sent * Acetaminophen p.r.n. for fever DERMATOLOGY: Right hand acute PAD, leading to possible right hand fingertip necrosis * Doppler ultrasound shows no significant arterial disease * Amlodipine 5 mg daily and local and sublingual nitroglycerin * Vascular surgeon consulted, planned for right radial artery exploration MUSCULOSKELETAL: * Chronic back pain, due to severe lumbar disc disease DIET: Nepro 30 mL/hr DVT prophylax: Due to severe thrombocytopenia, no anticoagulant is indicated, SCDs GI prophylaxis: Protonix 40 mg b.i.d. Bowel regimen: MiraLax 17 g p.o. daily Code status: Code status discussed with the family (son), full code LINES/DRAINS/ACCESS: * ETT: Intubated on 01/19/2025 * IV access: Left internal jugular vein, placed on 01/19/2025 * Right subclavian tunneled catheter, placed on 01/26/2020 * Drips: Fentanyl * Young catheter: DISPOSITION: ICU status Patient's status discussed with patient's son, sister, and [id number] at the bedside. Critical care time spent more than 76 minutes, including patient care, chart review, and updating the family. Excluding any procedures. Case discussed with Dr. Chadwick Plan discussed with: Patient, Son, Other (RN) My Orders My Orders Orders - SONA HEARD RESDIENT Procedure Category Date Status Time Abg W/ Co-Ox RT 01/25/25 Logged 04:00 Chest Xray 1 View XY 01/25/25 Resulted 04:00 Insertion Of Venous XY 01/25/25 [address] Cath 09:23 Nitroglycerin Oint PHA 01/25/25 In Process (Nitro-Bid) 14:00 Dietary Evaluation Review Comments: 1) Initiate Nephro-Haritha @ 1 tb qd 2) If patient remains NPO > 7 days, consider EN/TPN to meet at least 75% of estimated daily needs 3) If GI route is preferred, consider Nepro CarbSteady @ 30 mL/hr goal rate as tolerated. EN regimen will provide 1296 kcals. 58g Pro, and 523 mL free H2O per 24 hrs. Goal rate will meet ~ 92% estimated daily energy needs and ~ 43% estimated daily protein needs. 4) Advance to 60g CCHO renal diet when medically feasible, pending ST approal 5) Refer to outpatient RD/CDCES for weight management 6) Follow-up with cardiology, pulmonology, nephrology, gastroenterology, and hepatology 7) Follow-up with social science professor r/t polysubstance abuse 8) Continue to monitor I&O, labs, and skin integrity Expected Outcomes/Goals: 1) patient to receive nutrition support within 7 days of NPO status 2) labs and GI symptoms to improve 3) diet to advance 4) f/u in 2-3 days Date of Service: Jan 25, 2025 Billing Provider: PINA CHADWICK MD Common Visit Codes: [id number] CARE 30-74 MIN SONA HEARD RESDIENT Jan 25, 2025 15:24 PINA CHADWICK MD Jan 26, 2025 13:22
[2025-01-25 15:42] LABS: Base Excess 2.5 mmol/L (-2.0-3.0)
--- NOTE | 2025-01-25 15:54 | DVHPN2 ---
Progress Note Date Seen: Jan 25, 2025 Resident Creating Document: NATALY BURNETTE RESIDENT Has the PT tested + for MRSA If YES, has PT been informed?: No Medical Necessity Reason Pt with a Central, PICC or Fol: Yes The following are medically ne: Young Catheter Reason for young catheter: Strict I&O Subjective Review of Systems 01/25/25 The patient is a 60-year-old male with a history of alcoholic liver cirrhosis with portal hypertension, alcohol use disorder, heavy smoking, and recent upper GI bleeding. He presented initially with lower back pain and subsequently developed AFib and SVT, requiring cardioversion. Due to respiratory distress and inability to maintain airway, he was intubated, sedated, and placed on mechanical ventilation. Overnight/Current Events: * GI: Patient remains on enteral nutrition via NG tube with Nepro 30 mL/hr (carb steady 0.3 mmol/mL). Feeds tolerated so far; monitoring for residuals. * No bowel movement noted yet despite bowel regimen (Miralax, Senna). * No fresh GI bleeding; NG aspirate clear, Hgb stable. * Medications: Currently on IV Protonix, IV Reglan, bowel regimen, Vancomycin, and Meropenem for sepsis. * Other: Right hand fingers blue/necrotic distally, warm to touch (PAD under evaluation). Brief Gist of Todays Progress * Patient remains intubated and sedated, with stable GI status. * Enteral nutrition continued with careful monitoring. * No evidence of rebleeding. * Ongoing antibiotic therapy for bacteremia. * GI prophylaxis maintained. Review of Systems Unable to obtain ROS due to sedation. * GI: No melena or hematemesis; NG tube draining non-bloody contents. * Nutrition: Enteral feeding ongoing. * Bowel: No bowel movement reported. Objective vital signs Vital Sign Date Time Temp Pulse Resp B/P (MAP) Pulse Ox O2 Delivery O2 Flow Rate FiO2 01/25/25 15:38 30 01/25/25 15:38 20 99 Mechanical Ventilator+ 01/25/25 15:32 96/43 01/25/25 15:32 100.2 01/25/25 14:30 75 01/24/25 08:00 0 Total Intake and Output 01/24/25 01/24/25 01/25/25 15:00 23:00 07:00 Intake Total 585.2 ml 704 ml 643 ml Output Total 1250 ml 625 ml Balance 585.2 ml -546 ml 18 ml medications Current Medications Medications Dose Ordered Sig/Natividad Route Start Time Stop Time Status Last Admin Dose Admin Propofol 100 ml @ 3.015 mls/ hr Q24H IV 01/19/25 11:15 01/19/25 22:51 12.06 MLS/HR Midazolam HCl 50 ml @ 1 mls/hr Q24H IV 01/19/25 11:15 01/25/25 12:03 10 MLS/HR Fentanyl Citrate 250 ml @ 2.5 mls/hr Q24H IV 01/19/25 11:15 01/25/25 12:09 20 MLS/HR Pantoprazole Sodium 40 mg BID IV 01/19/25 22:00 01/25/25 09:31 40 MG Thiamine HCl 100 mg DAILY IV 01/20/25 10:00 01/25/25 09:31 100 MG Folic Acid 1 mg/ Dextrose 50.2 ml @ 200.8 mls/ hr DAILY INJ 01/20/25 10:00 01/25/25 10:17 200.8 MLS/HR Polyethylene Glycol 17 gm DAILY PO 01/20/25 10:00 01/25/25 09:38 17 GM Dextrose 50 ml UD PRN IV 01/19/25 13:15 Diagnostic Test (Pha) 1 strip Q6HR 01/23/25 10:00 01/25/25 12:04 1 STRIP Insulin Human Lispro Q6HR SC 01/23/25 10:00 01/25/25 12:07 1 UNITS Amlodipine Besylate 5 mg DAILY PO 01/24/25 10:00 01/25/25 10:30 5 MG Metoclopramide HCl 5 mg Q8HR IV 01/23/25 16:30 01/25/25 13:38 5 MG Enteral Nutritional Formula 1,000 ml 30ML/HR NG 01/23/25 16:30 01/24/25 22:01 1,000 ML Furosemide 40 mg BIDD IV 01/24/25 18:00 01/25/25 06:32 40 MG Acetaminophen 650 mg Q6HP PRN PO 01/24/25 09:15 01/25/25 13:37 650 MG Carvedilol 3.125 mg Q12HR PO 01/24/25 10:00 01/25/25 09:32 3.125 MG Vancomycin HCl 0 ml @ 0 mls/hr UD IV 01/24/25 11:00 Meropenem 50 ml @ 17 mls/hr Q12HR IV 01/24/25 13:19 01/25/25 09:32 17 MLS/HR Sennosides 8.6 mg HS PO 01/24/25 22:00 01/24/25 22:13 8.6 MG Nitroglycerin 1 pkg Q8HR TD 01/25/25 14:00 01/25/25 14:18 1 PKG Examination * General: Intubated, sedated, RASS -4, critically ill. * Abdomen: Soft, non-tender, no guarding, normal bowel sounds. * NG Tube: In place; aspirate clear, no blood. * Skin: Right distal fingers blue, necrotic changes, warm to touch. * Other systems: Stable on current support. laboratory and microbiology Laboratory Tests 01/25/25 03:25 Test 01/25/25 03:25 Range/Units Serum Glucose 190 H 74-106 mg/dL Microbiology Date/Time Source Procedure Growth Status 01/23/25 20:14 Lung Pending Resulted 01/23/25 20:14 Lung Pending Resulted 01/23/25 20:14 Lung Pending Resulted 01/23/25 20:14 Lung Pending Resulted 01/23/25 20:14 Lung - Final See Separate Report... Resulted 01/23/25 20:14 Bronchial Washings Gram Stain - Final Resulted 01/23/25 20:14 Bronchial Washings Respiratory Culture - Preliminary Resulted 01/23/25 13:10 Blood Blood Culture - Preliminary NO GROWTH AFTER 48 HOURS OF INCUBATION. Resulted 01/18/25 06:08 Voided Urine Urine Culture - Final Complete Problem List/Assessment/Plan Problem List/Assessment/Plan Assessment 1. Upper GI bleeding resolved/stable * No active bleeding; NG aspirate clear; H/H stable. 2. Alcoholic liver cirrhosis with portal hypertension * Chronic, MELD 26; at risk for rebleeding and variceal hemorrhage. 3. Feeding intolerance risk due to critical illness * Currently tolerating NG feeds at 30 mL/hr; continue monitoring. 4. Critical illness-related gastroparesis * Managed with scheduled IV metoclopramide. 5. Constipation due to critical illness and opioids * On bowel regimen; monitor for resolution. 6. Sepsis (Salmonella bacteremia) under antibiotic therapy * Broad-spectrum coverage with vancomycin and meropenem. Plan GI System Gastrointestinal/Nutrition: * Continue enteral feeding with Nepro at 30 mL/hr via NG tube. * Monitor gastric residuals every 4 hours; hold feeds if >250 mL. * Continue IV Protonix 40 mg BID for stress ulcer prophylaxis. * Continue IV Reglan 5 mg q8h to promote gastric emptying. * Maintain bowel regimen with Miralax and Senna; monitor for bowel movement. * If constipation persists >48 hours, consider adding lactulose or rectal suppository. * Daily monitoring of electrolytes and liver function tests. Infection Control: * Continue IV Vancomycin and IV Meropenem as per infectious disease. * Follow-up on cultures for further antibiotic adjustments. Hepatic: * Monitor LFTs, ammonia, INR daily. * Avoid hepatotoxic agents. Prophylaxis: * GI: PPI as above. * Aspiration: Head of bed >30 during feeding. Differential Diagnoses (GI Focused) * Stress gastritis vs. portal hypertensive gastropathy * Peptic ulcer disease (controlled, no active bleed) * Critical illness-related gastroparesis * Aspiration due to NG feeds and ventilation Case discussed in detail with the attending physician, including the clinical presentation, diagnostic workup, and comprehensive management plan. Plan discussed with: Other (nurse) Dietary Evaluation Review Comments: 1) Initiate Nephro-Haritha @ 1 tb qd 2) If patient remains NPO > 7 days, consider EN/TPN to meet at least 75% of estimated daily needs 3) If GI route is preferred, consider Nepro CarbSteady @ 30 mL/hr goal rate as tolerated. EN regimen will provide 1296 kcals. 58g Pro, and 523 mL free H2O per 24 hrs. Goal rate will meet ~ 92% estimated daily energy needs and ~ 43% estimated daily protein needs. 4) Advance to 60g CCHO renal diet when medically feasible, pending ST approal 5) Refer to outpatient RD/CDCES for weight management 6) Follow-up with cardiology, pulmonology, nephrology, gastroenterology, and hepatology 7) Follow-up with social media senior associate r/t polysubstance abuse 8) Continue to monitor I&O, labs, and skin integrity Expected Outcomes/Goals: 1) patient to receive nutrition support within 7 days of NPO status 2) labs and GI symptoms to improve 3) diet to advance 4) f/u in 2-3 days NATALY BURNETTE RESIDENT Jan 25, 2025 15:54
[2025-01-25] MEDS: IOHEXOL 300 MG/ML 100ML BOTTLE IJ ONE (16:23)
[2025-01-25] MEDS: Lidocaine/Epinephrine 1%-1:100,000 30ML VL ONE (16:23)
[2025-01-25] MEDS: BUPIVACAINE 0.5% P/F INJ 10 ML VIAL ONE (16:23)
--- NOTE | 2025-01-25 16:49 | DVHPN2 ---
Progress Note Date Seen: Jan 25, 2025 Has the PT tested + for MRSA If YES, has PT been informed?: No Medical Necessity Reason Pt with a Central, PICC or Fol: Yes The following are medically ne: Young Catheter Reason for young catheter: Strict I&O Subjective Patient reports: Other Review of Systems: Deferred Objective vital signs Vital Sign Date Time Temp Pulse Resp B/P (MAP) Pulse Ox O2 Delivery O2 Flow Rate FiO2 01/25/25 16:30 70 20 113/59 (77) 99 40 01/25/25 15:38 Mechanical Ventilator+ 01/25/25 15:32 100.2 01/24/25 08:00 0 Total Intake and Output 01/24/25 01/24/25 01/25/25 15:00 23:00 07:00 Intake Total 585.2 ml 704 ml 643 ml Output Total 1250 ml 625 ml Balance 585.2 ml -546 ml 18 ml medications Current Medications Medications Dose Ordered Sig/Natividad Route Start Time Stop Time Status Last Admin Dose Admin Propofol 100 ml @ 3.015 mls/ hr Q24H IV 01/19/25 11:15 01/19/25 22:51 12.06 MLS/HR Midazolam HCl 50 ml @ 1 mls/hr Q24H IV 01/19/25 11:15 01/25/25 12:03 10 MLS/HR Fentanyl Citrate 250 ml @ 2.5 mls/hr Q24H IV 01/19/25 11:15 01/25/25 12:09 20 MLS/HR Pantoprazole Sodium 40 mg BID IV 01/19/25 22:00 01/25/25 09:31 40 MG Thiamine HCl 100 mg DAILY IV 01/20/25 10:00 01/25/25 09:31 100 MG Folic Acid 1 mg/ Dextrose 50.2 ml @ 200.8 mls/ hr DAILY INJ 01/20/25 10:00 01/25/25 10:17 200.8 MLS/HR Polyethylene Glycol 17 gm DAILY PO 01/20/25 10:00 01/25/25 09:38 17 GM Dextrose 50 ml UD PRN IV 01/19/25 13:15 Diagnostic Test (Pha) 1 strip Q6HR 01/23/25 10:00 01/25/25 12:04 1 STRIP Insulin Human Lispro Q6HR SC 01/23/25 10:00 01/25/25 12:07 1 UNITS Amlodipine Besylate 5 mg DAILY PO 01/24/25 10:00 01/25/25 10:30 5 MG Metoclopramide HCl 5 mg Q8HR IV 01/23/25 16:30 01/25/25 13:38 5 MG Enteral Nutritional Formula 1,000 ml 30ML/HR NG 01/23/25 16:30 01/24/25 22:01 1,000 ML Acetaminophen 650 mg Q6HP PRN PO 01/24/25 09:15 01/25/25 13:37 650 MG Carvedilol 3.125 mg Q12HR PO 01/24/25 10:00 01/25/25 09:32 3.125 MG Vancomycin HCl 0 ml @ 0 mls/hr UD IV 01/24/25 11:00 Meropenem 50 ml @ 17 mls/hr Q12HR IV 01/24/25 13:19 01/25/25 09:32 17 MLS/HR Sennosides 8.6 mg HS PO 01/24/25 22:00 01/24/25 22:13 8.6 MG Nitroglycerin 1 pkg Q8HR TD 01/25/25 14:00 01/25/25 14:18 1 PKG Furosemide 60 mg BIDD IV 01/25/25 18:00 UNV Examination: GENERAL:Abnormal, LUNGS:Abnormal, MSK:Abnormal, NEURO:Abnormal laboratory and microbiology Laboratory Tests 01/25/25 03:25 Test 01/25/25 03:25 Range/Units Serum Glucose 190 H 74-106 mg/dL Microbiology Date/Time Source Procedure Growth Status 01/23/25 20:14 Lung Pending Resulted 01/23/25 20:14 Lung Pending Resulted 01/23/25 20:14 Lung Pending Resulted 01/23/25 20:14 Lung Pending Resulted 01/23/25 20:14 Lung - Final See Separate Report... Resulted 01/23/25 20:14 Bronchial Washings Gram Stain - Final Resulted 01/23/25 20:14 Bronchial Washings Respiratory Culture - Preliminary Resulted 01/23/25 13:10 Blood Blood Culture - Preliminary NO GROWTH AFTER 48 HOURS OF INCUBATION. 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 Bilateral inguinal hernias extending into the scrotum Severe lumbar disc disease Congestive heart failure with reduced ejection fraction acute on chronic Thrombocytopenia Hypokalemia recs HD tomorrow increase lasix dose --uop better 4 k bath cardio eval k replace prn s/p tunneled cath Plan discussed with: Spouse, Other My Orders My Orders Orders - CAMERON HOLLOWAY MD Procedure Category Date Status Time Furosemide Injection PHA 01/25/25 Transmitted (Lasix Injection) 18:00 Dietary Evaluation Review Comments: 1) Initiate Nephro-Haritha @ 1 tb qd 2) If patient remains NPO > 7 days, consider EN/TPN to meet at least 75% of estimated daily needs 3) If GI route is preferred, consider Nepro CarbSteady @ 30 mL/hr goal rate as tolerated. EN regimen will provide 1296 kcals. 58g Pro, and 523 mL free H2O per 24 hrs. Goal rate will meet ~ 92% estimated daily energy needs and ~ 43% estimated daily protein needs. 4) Advance to 60g CCHO renal diet when medically feasible, pending ST approal 5) Refer to outpatient RD/CD[facility] for weight management 6) Follow-up with cardiology, pulmonology, nephrology, gastroenterology, and hepatology 7) Follow-up with social service coordinator r/t polysubstance abuse 8) Continue to monitor I&O, labs, and skin integrity Expected Outcomes/Goals: 1) patient to receive nutrition support within 7 days of NPO status 2) labs and GI symptoms to improve 3) diet to advance 4) f/u in 2-3 days CAMERON HOLLOWAY MD Jan 25, 2025 16:49
[2025-01-25] MEDS ORDERED: ROCURONIUM 10MG/ML 10ML VIAL IV ONE (17:08)
[2025-01-25] MEDS ORDERED: ONDANSETRON HCL 4 MG/2 ML VIAL ONE (17:09)
[2025-01-25] MEDS ORDERED: METOCLOPRAMIDE HCL 5MG/ml INJ 2ml VIAL ONE (17:09)
[2025-01-25] MEDS ORDERED: SODIUM CHLORIDE LOCK 10 ML ONE (17:11)
[2025-01-25] MEDS: LIDOCAINE 1% HCL (LOCAL ANESTH.) INJ 20ML MDV ONE (17:19)
--- NOTE | 2025-01-25 18:19 | DVHOP2 ---
Operative Report - 2 Report Details Date: 01/25/25 Preop Diagnosis: Right hand ischemia Postop Diagnosis: Right radial artery thrombosis Surgeon: Vasquez Pires MD Anesthesiologist: General endotracheal tube Anesthesia: General Consent: The patient was informed of the risks and benefits of the procedure. These include but are not limited to complications of anesthesia, postoperative infection, incomplete relief of symptoms, recurrence of symptoms, damage to blood vessels, nerves and tendons, deep venous thrombosis, pulmonary embolism and possible need for repeat surgery in the future. Estimated Blood Loss: 50 mL Findings: Radial artery intimal flap then thrombosis Indications for Surgery: Right hand ischemia Name of Procedure Performed Right radial artery exploration, thrombectomy, radial artery repair, radial and palmar arch arteriogram Procedure Details Procedure Details: Patient was identified in the ICU I had spoke to the family at length regarding the procedure and they agreed to move forward. Patient was taken to the operating room placed the operating table in supine position after adequate induction of anesthesia antibiotics and time-out the right hand and arm was prepped and draped in normal surgical fashion. This incision was made directly over the radial artery distally at the site of a prior a line dissection was taken down there was some hematoma still present dissection down was taken down to the radial artery the radial artery was exposed proximally and distally was controlled with vessel loops. There was pulsatile flow in the proximal radial artery but no flow distally. 3000 units of heparin was given to the patient. A transverse incision was made in the radial artery using 11 blade. Using a 2 Portuguese Nasrin catheter a thrombectomy was performed of the proximal radial artery as well as the distal radial artery there was pulsatile flow once this was completed minimal thrombus was removed from the proximal radial artery there was a proximally 1 cm of thrombus in the distal radial artery. Of note there appeared to be an intimal flap at the site of the prior puncture site which was also adjacent to where the arteriotomy was made. At this point in time the both right radial artery proximally distally was flushed with heparinized saline an arteriogram was performed which demonstrated flow and intact palmar arch. At t his point in time the arteries were then flushed again with heparinized saline and then closed the radial artery was repaired with a 7 0 Prolene suture. In a running fashion the radial artery was closed. Flow was restored there was Doppler signals noted proximally and distally in the radial artery as well as the palmar arch. The wound was then irrigated out and then closed with a deep layer of 2-0 Vicryl sutures dermal layer followed by skin closure with delma. Sponge and needle counts were correct patient was taken to the ICU in a guarded condition. Condition Guarded Disposition Still a Patient VASQUEZ PIRES Jr., MD Jan 25, 2025 18:19
[2025-01-25] MEDS: FUROSEMIDE 40 MG/4 ML VIAL IV SCH (19:09)
[2025-01-25] MEDS: VANCOMYCIN 750mg/150ml 150 ML IV ONE (19:14)
[2025-01-25] MEDS: LACTULOSE 20Gm/30ML SOLN PO SCH (22:09)
--- NOTE | 2025-01-25 23:52 | DVHPN2 ---
Progress Note - Dictate Date Seen: Jan 25, 2025 Has the PT tested + for MRSA If YES, has PT been informed?: No Medical Necessity Reason Pt with a Central, PICC or Fol: Yes The following are medically ne: Young Catheter Reason for young catheter: Strict I&O Subjective [facility] Patient seen and examined at bedside. Intubated on mechanical ventilator. Overnight events reviewed. vital signs Vital Sign Date Time Temp Pulse Resp B/P (MAP) Pulse Ox O2 Delivery O2 Flow Rate FiO2 01/25/25 23:29 86/50 01/25/25 23:09 85 01/25/25 22:22 101.7 01/25/25 20:15 28 99 40 01/25/25 20:00 Mechanical Ventilator+ 01/24/25 08:00 0 Total Intake and Output 01/24/25 01/24/25 01/25/25 15:00 23:00 07:00 Intake Total 585.2 ml 704 ml 643 ml Output Total 1250 ml 625 ml Balance 585.2 ml -546 ml 18 ml medications Current Medications Medications Dose Ordered Sig/Natividad Route Start Time Stop Time Status Last Admin Dose Admin Propofol 100 ml @ 3.015 mls/ hr Q24H IV 01/19/25 11:15 01/25/25 20:34 3.015 MLS/HR Midazolam HCl 50 ml @ 1 mls/hr Q24H IV 01/19/25 11:15 01/25/25 12:03 10 MLS/HR Fentanyl Citrate 250 ml @ 2.5 mls/hr Q24H IV 01/19/25 11:15 01/25/25 12:09 20 MLS/HR Pantoprazole Sodium 40 mg BID IV 01/19/25 22:00 01/25/25 22:10 40 MG Thiamine HCl 100 mg DAILY IV 01/20/25 10:00 01/25/25 09:31 100 MG Folic Acid 1 mg/ Dextrose 50.2 ml @ 200.8 mls/ hr DAILY INJ 01/20/25 10:00 01/25/25 10:17 200.8 MLS/HR Polyethylene Glycol 17 gm DAILY PO 01/20/25 10:00 01/25/25 09:38 17 GM Dextrose 50 ml UD PRN IV 01/19/25 13:15 Diagnostic Test (Pha) 1 strip Q6HR 01/23/25 10:00 01/25/25 18:00 1 STRIP Insulin Human Lispro Q6HR SC 01/23/25 10:00 01/25/25 19:14 1 UNITS Amlodipine Besylate 5 mg DAILY PO 01/24/25 10:00 01/25/25 10:30 5 MG Metoclopramide HCl 5 mg Q8HR IV 01/23/25 16:30 01/25/25 22:10 5 MG Enteral Nutritional Formula 1,000 ml 30ML/HR NG 01/23/25 16:30 01/24/25 22:01 1,000 ML Acetaminophen 650 mg Q6HP PRN PO 01/24/25 09:15 01/25/25 21:22 650 MG Carvedilol 3.125 mg Q12HR PO 01/24/25 10:00 01/25/25 22:09 3.125 MG Vancomycin HCl 0 ml @ 0 mls/hr UD IV 01/24/25 11:00 Meropenem 50 ml @ 17 mls/hr Q12HR IV 01/24/25 13:19 01/25/25 22:09 17 MLS/HR Sennosides 8.6 mg HS PO 01/24/25 22:00 01/25/25 22:09 8.6 MG Nitroglycerin 1 pkg Q8HR TD 01/25/25 14:00 01/25/25 14:18 1 PKG Furosemide 60 mg BIDD IV 01/25/25 18:00 01/25/25 19:09 60 MG Lactulose 30 ml BID PO 01/25/25 22:00 01/25/25 22:09 30 ML objective Gen.: Patient lying in bed in medical ICU. Intubated on mechanical ventilator. Head: Normocephalic, atraumatic. Eyes: PERRLA. Ears: Normal external anatomy. Throat: Endotracheal tube and orogastric tube in place. Neck: Supple, trachea midline. Chest: Transmitted breath sounds bilaterally. Decreased air entry bilaterally. No wheezing. Bibasilar crackles. Cardiovascular: Positive S1, positive S2. Regular rate and rhythm. Abdomen: Positive bowel sounds in all 4 quadrants. Soft, nontender, nondistended. : Young in place. Normal external genitalia. Rectal: Deferred. Skin: Warm, dry. Intact. Extremities: 2+ radial pulses bilaterally. No lower extremity edema. Neuro: Off sedation laboratory and microbiology Laboratory Tests 01/25/25 03:25 Test 01/25/25 03:25 Range/Units Serum Glucose 190 H 74-106 mg/dL Assessment/Plan Impression: Acute hypoxic respiratory failure On mechanical ventilator Sepsis ESRD, on hemodialysis Obesity, BMI 34.7 Events: Remains on vent support Vent settings: AC mode; RR 20, VT 500, PEEP 8-->5, FiO2 55-->40% Improved FiO2 requirements - continue to taper as tolerated ABG reviewed, compensated. CXR shows stable bibasilar pulmonary airspace disease. Devices in place. Off Versed On Fentanyl drip. S/p placement of tunneled catheter for hemodialysis Hemodialysis performed yesterday. Vascular Surgery plans for right radial thrombectomy Follow up Vascular Surgery recommendations. Continue antibiotics Patient is afebrile Blood pressure control Accu-Cheks, ISS. Diurese with Lasix as tolerated HD per Nephrology Monitor renal function Monitor electrolytes. Supplement as necessary. Potassium supplementation Monitor ins and outs. Tube feeds for nutritional support S/p therapeutic bronchoscopy with RML BAL yesterday (01/23); cleared mucous plugging from L6-L10 and R1-R10. Sent for bacterial, fungal and viral cultures - follow up results. Limited chest ultrasound on 01/23 revealed compressive atelectasis. Consolidated lung. No pleural effusion noted. Please see separate procedure notes for details Labs and imaging reviewed. Rest of plan as noted below. Plan: s/p intubation on mechanical ventilator. Vent settings: AC mode; RR 20, VT 500, PEEP 5, FiO2 40% Titrate FIO2 to keep O2 saturation above 90%. VAP bundle. Daily ABG and CXR while intubated Off sedation Antibiotics. F/u cultures - Blood culture positive; bacteremia w/ Salmonella species. Repeat blood cultures show no growth Pressors as necessary for hemodynamic support. Titrate to keep MAP greater than 65 mmHg. Monitor hemoglobin Accu-Cheks, ISS. HD per Nephrology Monitor renal function Monitor electrolytes. Supplement as necessary. Monitor ins and outs. Diet and lifestyle modifications for weight reduction Obesity - complicates all care GI/DVT prophylaxis. Prognosis: Poor given patient's multiple co-morbidities. Condition: Critical Rest of plan per hospitalist and other consultants. A total of 35 minutes of critical care time was spent reviewing the patient record, examining the patient, making a diagnostic and therapeutic plan, discussing this plan with the medical personnel, following up on diagnostic studies and following the patient for clinical stability excluding any and all procedures. At least 50% of this time was spent in direct, [id number] contact. Thank you Dr. Dai for allowing me to participate in this patient's care. Further recommendations will depend on the patient's clinical course. Please do not hesitate to contact me if you have any questions or concerns. This medical document was created using an electronic medical record system with [employer] dictation system. Although these documentations are being carefully reviewed, there may still be some phonetic and typographical changes. The errors are purely typographical, due to imperfection on the software program, and do not reflect any compromise in the patient's medical care. Dietary Evaluation Review Comments: 1) Initiate Nephro-Haritha @ 1 tb qd 2) If patient remains NPO > 7 days, consider EN/TPN to meet at least 75% of estimated daily needs 3) If GI route is preferred, consider Nepro CarbSteady @ 30 mL/hr goal rate as tolerated. EN regimen will provide 1296 kcals. 58g Pro, and 523 mL free H2O per 24 hrs. Goal rate will meet ~ 92% estimated daily energy needs and ~ 43% estimated daily protein needs. 4) Advance to 60g CCHO renal diet when medically feasible, pending ST approal 5) Refer to outpatient RD/CDCES for weight management 6) Follow-up with cardiology, pulmonology, nephrology, gastroenterology, and hepatology 7) Follow-up with social work professor r/t polysubstance abuse 8) Continue to monitor I&O, labs, and skin integrity Expected Outcomes/Goals: 1) patient to receive nutrition support within 7 days of NPO status 2) labs and GI symptoms to improve 3) diet to advance 4) f/u in 2-3 days Plan discussed with: Other (DENISSE Zamora) Critical Care Time(min): 35 TIM GE MD Jan 25, 2025 23:52
[2025-01-26] VITALS (108 sets, daily range): BP systolic 88–130; BP diastolic 42–80; PULSE 70–88; RESP 12–21; TEMP 98–101.1; O2SAT 94–100
[2025-01-26 09:13] LABS: Base Excess 0.0 mmol/L (-2.0-3.0)
[2025-01-26 10:17] LABS: Hematocrit 37.8 % (41.0-53.0); Hemoglobin 12.2 g/dL (13.5-17.5); Mean Corpuscular Hemoglobin 28.7 pg (28.0-32.0); Mean Corpuscular Volume 88.5 fL (80.0-100.0); Nucleated Red Blood Cells % 0.3 %
--- NOTE | 2025-01-26 10:23 | DVH ---
XY CHEST XRAY 1 VIEW, HISTORY: pneumonia COMPARISON: XY CHEST XRAY 1 VIEW on DOS: 01/25/25, XY CHEST PORTABLE on DOS: 01/24/25, XY CHEST XRAY 1 VIEW on DOS: 01/24/25 XY CHEST XRAY 1 VIEW on DOS: 01/25/25, XY CHEST PORTABLE on DOS: 01/24/25, XY CHEST XRAY 1 VIEW on DOS: 01/24/25 TECHNICAL DATA: 1 view of the chest was obtained. FINDINGS: Lines and tubes: Stable lines and tubes. Cardiomediastinal silhouette: Enlarged Pulmonary vasculature: normal Lung expansion: normal Lung airspace: Bibasilar patchy airspace opacity. Lung interstitium: normal Pleura: normal Pneumothorax: no Bones: Unremarkable Other: no IMPRESSION: Bibasilar patchy airspace opacity with similar lung aeration.
[2025-01-26 11:21] LABS: Albumin 3.4 g/dL (3.2-4.8); Anion Gap 15 (5-15); BUN/Creatinine Ratio 46.9 (10.0-20.0); Calcium 9.3 mg/dL (8.7-10.4); Carbon Dioxide 26 mmol/L (20-31); Potassium 3.7 mmol/L (3.5-5.1); Total Protein 6.1 g/dL (5.7-8.2)
[2025-01-26 11:25] LABS: Alanine Aminotransferase 60 U/L (7-40); Alkaline Phosphatase 296 U/L (46-116); Bilirubin, Total 1.2 mg/dL (0.2-1.0); Chloride 111 mmol/L (98-107); Glucose 176 mg/dL (74-106); Sodium 152 mmol/L (136-145)
[2025-01-26 11:29] LABS: Blood Urea Nitrogen 82 mg/dL (9-23)
[2025-01-26 11:53] LABS: INR 1.21 (0.9-1.15); Partial Thromboplastin Time 29.6 SEC (24.5-34.5); Prothrombin Time 12.6 sec (9.3-11.8)
[2025-01-26] MEDS ORDERED: Nepro With Carb Steady 1 Liter Bottle GT SCH (12:15)
[2025-01-26] MEDS: IOHEXOL 300 MG/ML 100ML BOTTLE IJ ONE (13:07)
[2025-01-26] MEDS: ALBUMIN 25% 100 ML IV ONE ×2 (14:00→14:09)
[2025-01-26] MEDS ORDERED: NOREPINEPHRINE 8 MG/250ML KIT 250 ML IV SCH (14:00)
[2025-01-26] MEDS: NOREPINEPHRINE 8 MG/250ML KIT 250 ML IV SCH (14:30)
--- NOTE | 2025-01-26 16:55 | DVHPN2 ---
Progress Note Date Seen: Jan 26, 2025 Resident Creating Document: NATALY BURNETTE RESIDENT Has the PT tested + for MRSA If YES, has PT been informed?: No Medical Necessity Reason Pt with a Central, PICC or Fol: Yes The following are medically ne: Young Catheter Reason for young catheter: Strict I&O Subjective Review of Systems 01/26/25 The patient is a 60-year-old male with alcoholic liver cirrhosis with portal hypertension, recent UGIB, sepsis with Salmonella bacteremia, critical illness requiring intubation and mechanical ventilation, and PAD with right radial artery thrombosis. He underwent right radial artery exploration, thrombectomy, and repair on 01/25/2025. Overnight/Current Events: * Post-thrombectomy, right hand perfusion improved; necrotic changes persist distally. * Patient remains intubated, sedated, on AC mode (VT 500, PEEP 5, FiO? 4055%). * GI: No new GI bleeding, NG aspirate remains clear. * Nutrition: NG tube in place, previously on Nepro 30 mL/hr, now increased to 50 mL/hr with stable tolerance. * Bowel: No bowel movement yet; on Miralax and Senna. * Antibiotics: Continuing IV Meropenem and Vancomycin. * Liver function: Enzymes (AST 64, ALT 60) improving; total bilirubin down to 1.2. Brief Gist of Todays Progress * Status post successful right radial artery thrombectomy. * Liver enzymes trending downward, indicating improving hepatic injury. * Enteral feeds advanced to Nepro 50 mL/hr without intolerance. * GI prophylaxis and bowel regimen continued. * No active GI bleeding. Review of Systems (Unable to obtain due to sedation) * GI: No hematemesis or melena; NG aspirate non-bloody. * Nutrition: Enteral feeding ongoing at 50 mL/hr. * Bowel: No stool output yet. Objective vital signs Vital Sign Date Time Temp Pulse Resp B/P (MAP) Pulse Ox O2 Delivery O2 Flow Rate FiO2 01/26/25 16:17 40 01/26/25 16:17 20 99 Mechanical Ventilator+ 01/26/25 16:09 75 115/67 (83) 01/26/25 12:17 99.9 01/24/25 08:00 0 Total Intake and Output 01/25/25 01/25/25 01/26/25 15:00 23:00 07:00 Intake Total 357 ml 431.690 ml 423.68 ml Output Total 900 ml 950 ml Balance 357 ml -468.310 ml -526.32 ml medications Current Medications Medications Dose Ordered Sig/Natividad Route Start Time Stop Time Status Last Admin Dose Admin Propofol 100 ml @ 3.015 mls/ hr Q24H IV 01/19/25 11:15 01/25/25 20:34 3.015 MLS/HR Midazolam HCl 50 ml @ 1 mls/hr Q24H IV 01/19/25 11:15 01/26/25 14:09 11 MLS/HR Fentanyl Citrate 250 ml @ 2.5 mls/hr Q24H IV 01/19/25 11:15 01/26/25 10:33 22.5 MLS/HR Pantoprazole Sodium 40 mg BID IV 01/19/25 22:00 01/26/25 10:44 40 MG Thiamine HCl 100 mg DAILY IV 01/20/25 10:00 01/26/25 10:44 100 MG Folic Acid 1 mg/ Dextrose 50.2 ml @ 200.8 mls/ hr DAILY INJ 01/20/25 10:00 01/26/25 10:45 200.8 MLS/HR Polyethylene Glycol 17 gm DAILY PO 01/20/25 10:00 01/26/25 10:44 17 GM Dextrose 50 ml UD PRN IV 01/19/25 13:15 Diagnostic Test (Pha) 1 strip Q6HR 01/23/25 10:00 01/26/25 12:00 1 STRIP Insulin Human Lispro Q6HR SC 01/23/25 10:00 01/26/25 12:00 1 UNITS Amlodipine Besylate 5 mg DAILY PO 01/24/25 10:00 01/26/25 10:45 5 MG Metoclopramide HCl 5 mg Q8HR IV 01/23/25 16:30 01/26/25 05:37 5 MG Acetaminophen 650 mg Q6HP PRN PO 01/24/25 09:15 01/26/25 11:01 650 MG Carvedilol 3.125 mg Q12HR PO 01/24/25 10:00 01/26/25 11:00 3.125 MG Vancomycin HCl 0 ml @ 0 mls/hr UD IV 01/24/25 11:00 Meropenem 50 ml @ 17 mls/hr Q12HR IV 01/24/25 13:19 01/26/25 10:44 17 MLS/HR Sennosides 8.6 mg HS PO 01/24/25 22:00 01/25/25 22:09 8.6 MG Furosemide 60 mg BIDD IV 01/25/25 18:00 01/26/25 05:37 60 MG Lactulose 30 ml BID PO 01/25/25 22:00 01/26/25 10:44 30 ML Enteral Nutritional Formula 1,000 ml 30ML/HR GT 01/26/25 12:15 Norepinephrine Bitartrate 250 ml @ 3.75 mls/hr Q24H IV 01/26/25 14:30 Examination * General: Intubated, sedated, critically ill. * Abdomen: Soft, non-tender, non-distended, normal bowel sounds. * NG Tube: In situ, feeds running, aspirate clear. * Skin: Right distal fingers with necrotic changes; warm proximally. * Other systems: Stable with current support. laboratory and microbiology Laboratory Tests 01/26/25 09:49 01/26/25 03:44 Test 01/26/25 09:49 Range/Units Serum Glucose 176 H 74-106 mg/dL Microbiology Date/Time Source Procedure Growth Status 01/23/25 20:14 Lung Pending Resulted 01/23/25 20:14 Lung Pending Resulted 01/23/25 20:14 Lung Pending Resulted 01/23/25 20:14 Lung Pending Resulted 01/23/25 20:14 Lung - Final See Separate Report... Resulted 01/23/25 20:14 Bronchial Washings Gram Stain - Final Resulted 01/23/25 20:14 Respiratory Culture - Preliminary Presumptive Lelo albicans Resulted 01/23/25 13:10 Blood Blood Culture - Preliminary NO GROWTH AFTER 72 HOURS OF INCUBATION. Resulted 01/18/25 06:08 Voided Urine Urine Culture - Final Complete Problem List/Assessment/Plan Problem List/Assessment/Plan Assessment Assessment 1. Upper GI bleeding resolved/stable * No evidence of rebleeding; H/H stable. 2. Alcoholic liver cirrhosis with portal hypertension * MELD remains high; LFTs trending downward post-intervention. 3. Enteral feeding intolerance previously high residuals, now tolerating increased rate 4. Critical illness-related gastroparesis improving with Reglan. 5. Constipation due to critical illness/opioids still no bowel movement. 6. Sepsis (Salmonella bacteremia) ongoing antibiotics. Plan GI System Gastrointestinal/Nutrition * Increase enteral feeding (Nepro) to 50 mL/hr; monitor tolerance. * Continue IV Protonix 40 mg BID for stress ulcer and variceal prophylaxis. * Continue IV Reglan 5 mg q8h to enhance gastric emptying. * Continue bowel regimen with Miralax and Senna; if no stool output in next 24 hrs, consider lactulose or suppository. * Monitor daily gastric residuals and NG aspirate. Hepatic * Monitor LFTs, ammonia, and coagulation profile daily. * Avoid hepatotoxic medications. Infection Control * Continue IV Vancomycin and Meropenem. * Follow up blood cultures; adjust antibiotics per ID. Prophylaxis * GI: Continue PPI as above. * Aspiration: Maintain head of bed >30. Case discussed in detail with the attending physician, including the clinical presentation, diagnostic workup, and comprehensive management plan. Plan discussed with: Other (nurse) Dietary Evaluation Review Comments: 1) Initiate Nephro-Haritha @ 1 tb qd 2) If patient remains NPO > 7 days, consider EN/TPN to meet at least 75% of estimated daily needs 3) If GI route is preferred, consider Nepro CarbSteady @ 30 mL/hr goal rate as tolerated. EN regimen will provide 1296 kcals. 58g Pro, and 523 mL free H2O per 24 hrs. Goal rate will meet ~ 92% estimated daily energy needs and ~ 43% estimated daily protein needs. 4) Advance to 60g CCHO renal diet when medically feasible, pending ST approal 5) Refer to outpatient RD/CDCES for weight management 6) Follow-up with cardiology, pulmonology, nephrology, gastroenterology, and hepatology 7) Follow-up with social worker school r/t polysubstance abuse 8) Continue to monitor I&O, labs, and skin integrity Expected Outcomes/Goals: 1) patient to receive nutrition support within 7 days of NPO status 2) labs and GI symptoms to improve 3) diet to advance 4) f/u in 2-3 days NATALY BURNETTE RESIDENT Jan 26, 2025 16:55
--- NOTE | 2025-01-26 17:00 | DVH ---
CLINICAL HISTORY: intraabdominal infection, spikes of fever, unknown source TECHNIQUE: CT of the abdomen and pelvis was performed with intravenous contrast. 99 mL Omnipaque 300 injected This exam was performed according to our departmental dose optimization program. Up-to-date CT equipment and radiation dose reduction techniques are utilized as appropriate. 25.59 CTDIVol: 25.59 mGy DLP: 25.59 mGy-cm WID: COMPARISON: US ABDOMEN LIMITED on DOS: 01/25/25 FINDINGS: Lower Thorax: Normal-sized heart without pericardial effusion. There are moderate dependent consolida tions in the bilateral lower lobes with air bronchograms. Liver and Biliary system: Mild hepatomegaly measuring 19 cm craniocaudal. Major portal veins are aj nt. No definite hepatic lesion. Gallbladder is mildly dilated without wall thickening. No biliary du ctal dilatation. Spleen: Mild Splenomegaly. Adrenal Glands and Kidneys: Normal adrenal glands. No hydronephrosis. Small hypodensity in the upper pole right kidney is too small to characterize though may reflect a small cyst. No nephrolithiasis. Pancreas and Retroperitoneum: Unremarkable. Aorta and Major Vessels: Aortoiliac vessels are patent and normal caliber containing mild calcified a therosclerotic plaque. Bowel, Mesentery and Peritoneal space: Normal caliber small and large bowel. Moderate retained stool in the colon. There is mild colonic diverticulosis. Normal appendix. A gastric tube is seen with the tip terminating in the gastric fundus. Scattered fluid-filled small bowel loops. There is no free int raperitoneal air or fluid collection. A small catheter seen in the anus. Pelvis: Bates catheter in the urinary bladder. There are fat containing bilateral inguinal hernias. T here is no pelvic lymphadenopathy. Prostate and seminal vesicles are grossly unremarkable. Abdominal wall and Osseous Structures: Moderate degenerative disc disease of the lower lumbar spine. No destructive osseous lesion. Skin delma are seen in the visualized volar right wrist. IMPRESSION: No intra-abdominal fluid collection to suggest abscess or free air. Scattered fluid-filled small bowel loops which may be physiologic or related to enteritis. Mild colonic diverticulosis. Moderate retained stool in the colon. Moderate dependent consolidations in the bilateral lobes with air bronchograms likely atelectasis, th ough pneumonia (which can be on the basis of aspiration) is an additional consideration. Mild hepatosplenomegaly. Gastric tube terminates in the gastric fundus.
[2025-01-26] MEDS: GLYCERIN ADULT RECTAL SUPP PR ONE (17:21)
--- NOTE | 2025-01-26 17:30 | DVHPN2 ---
Consult Progress Note Subjective Other Systems: Patient remains in normal sinus rhythm on soft metals engraver hand. Objective vital signs Vital Sign Date Time Temp Pulse Resp B/P (MAP) Pulse Ox O2 Delivery O2 Flow Rate FiO2 01/26/25 16:45 99.1 79 20 130/74 (92) 100 99.1 01/26/25 16:17 40 01/26/25 16:17 Mechanical Ventilator+ 01/24/25 08:00 0 Total Intake and Output 01/25/25 01/25/25 01/26/25 15:00 23:00 07:00 Intake Total 357 ml 431.690 ml 423.68 ml Output Total 900 ml 950 ml Balance 357 ml -468.310 ml -526.32 ml medications Current Medications Medications Dose Ordered Sig/Natividad Route Start Time Stop Time Status Last Admin Dose Admin Propofol 100 ml @ 3.015 mls/ hr Q24H IV 01/19/25 11:15 01/25/25 20:34 3.015 MLS/HR Midazolam HCl 50 ml @ 1 mls/hr Q24H IV 01/19/25 11:15 01/26/25 14:09 11 MLS/HR Fentanyl Citrate 250 ml @ 2.5 mls/hr Q24H IV 01/19/25 11:15 01/26/25 10:33 22.5 MLS/HR Pantoprazole Sodium 40 mg BID IV 01/19/25 22:00 01/26/25 10:44 40 MG Thiamine HCl 100 mg DAILY IV 01/20/25 10:00 01/26/25 10:44 100 MG Folic Acid 1 mg/ Dextrose 50.2 ml @ 200.8 mls/ hr DAILY INJ 01/20/25 10:00 01/26/25 10:45 200.8 MLS/HR Polyethylene Glycol 17 gm DAILY PO 01/20/25 10:00 01/26/25 10:44 17 GM Dextrose 50 ml UD PRN IV 01/19/25 13:15 Diagnostic Test (Pha) 1 strip Q6HR 01/23/25 10:00 01/26/25 12:00 1 STRIP Insulin Human Lispro Q6HR SC 01/23/25 10:00 01/26/25 12:00 1 UNITS Amlodipine Besylate 5 mg DAILY PO 01/24/25 10:00 01/26/25 10:45 5 MG Metoclopramide HCl 5 mg Q8HR IV 01/23/25 16:30 01/26/25 05:37 5 MG Acetaminophen 650 mg Q6HP PRN PO 01/24/25 09:15 01/26/25 11:01 650 MG Carvedilol 3.125 mg Q12HR PO 01/24/25 10:00 01/26/25 11:00 3.125 MG Vancomycin HCl 0 ml @ 0 mls/hr UD IV 01/24/25 11:00 Meropenem 50 ml @ 17 mls/hr Q12HR IV 01/24/25 13:19 01/26/25 10:44 17 MLS/HR Sennosides 8.6 mg HS PO 01/24/25 22:00 01/25/25 22:09 8.6 MG Furosemide 60 mg BIDD IV 01/25/25 18:00 01/26/25 05:37 60 MG Lactulose 30 ml BID PO 01/25/25 22:00 01/26/25 10:44 30 ML Norepinephrine Bitartrate 250 ml @ 3.75 mls/hr Q24H IV 01/26/25 14:30 Enteral Nutritional Formula 1,000 ml 50ML/HR GT 01/26/25 17:00 UNV Examination: GENERAL:Abnormal, LUNGS:Abnormal (Mechanically ventilated), CVS:Normal, NEURO:Abnormal (Chemically sedated) laboratory and microbiology Laboratory Tests 01/26/25 09:49 01/26/25 03:44 Test 01/26/25 09:49 Range/Units Serum Glucose 176 H 74-106 mg/dL Problem List/Assessment/Plan Problem List/Assessment/Plan Atrial fibrillation with rapid ventricular response status post direct current cardioversion, now normal sinus rhythm Bacteremia, Rule out infective endocarditis Acute hypoxic respiratory failure Acute on chronic HFmrEF, NYHA class IV, newly diagnosed Septic shock Severe thrombocytopenia Type 2 diabetes mellitus, newly diagnosed Pulmonary hypertension, severe degree Alcohol use disorder Upper GI bleed Transaminitis Acute kidney injury, now on hemodialysis Liver cirrhosis Tobacco use History of methamphetamine use Morbid obesity Medical noncompliance Plan/Recommendations (Dr. Sloan): * Transthoracic echocardiogram reveals EF 45%, RVSP 64 mmHg * Slowly introduce guideline directed medical therapy for CHF as tolerated by BP. * Recommend to stop calcium channel diane as this is not GDMT guideline * [id number] VASc score: 2 points, HAS-BLED score: 3 points * Hold off anticoagulation given severe thrombocytopenia. Continue SCDs * Beta-blockers and antiarrhythmic agents were held given patient has episodes of bradycardia * 01/24/25: Primary team restarted on beta-blockers, continue closely monitor for bradycardia * Monitor and replete electrolytes as needed * Closely monitor hemoglobin and hematocrit, transfuse as needed * Close Cardiac surveillance Case discussed with . The patient continues to have necrotic fingers on right hand. A right upper extremity arterial duplex was ordered by primary care team which shows no significant stenosis. Given patient severely low platelet count, the patient would not be an ideal candidate for any invasive cardiac procedures. A vascular consultation was done and the patient was taken for a right radial artery exploration, thrombectomy, radial artery repair, radial and palmar arch arteriogram on 01/25/2025. 01/26/25: Primary team concerned about patient's recurrent fevers. Patient has bacteremia. personally reviewed echocardiogram (that was dictated by other communications analyst), and there appears to be a possible mitral valve vegetation. Manning criteria for infective endocarditis: Possible. Given this information, the patient may benefit from a transesophageal echocardiogram. Plan discussed with the patient's sister Lali, who agrees for the patient to undergo procedure. We will plan for a transesophageal echocardiogram on 01/27/2025. Thank you for allowing us to care for this patient. Please call with any questions or concerns. Critical care time spent: 38 minutes. This medical document was created using an electronic medical record system with voice recognition software and computerized dictation system. Although this document has been carefully reviewed, there might still be some phonetic and typographical errors. Occasional wrong-word or ``sound-alike substitutions may have occurred due to the inherent limitations of voice recognition software. These areas are purely typographical due to imperfections of the software programs and do not reflect any compromise in the patient's medical care. Please read the chart carefully and recognize, using context, where these substitutions have occurred. Plan discussed with: Other (Sister and bedside RN) Dietary Evaluation Review Comments: 1) Initiate Nephro-Haritha @ 1 tb qd 2) If patient remains NPO > 7 days, consider EN/TPN to meet at least 75% of estimated daily needs 3) If GI route is preferred, consider Nepro CarbSteady @ 30 mL/hr goal rate as tolerated. EN regimen will provide 1296 kcals. 58g Pro, and 523 mL free H2O per 24 hrs. Goal rate will meet ~ 92% estimated daily energy needs and ~ 43% estimated daily protein needs. 4) Advance to 60g CCHO renal diet when medically feasible, pending ST approal 5) Refer to outpatient RD/[facility] for weight management 6) Follow-up with cardiology, pulmonology, nephrology, gastroenterology, and hepatology 7) Follow-up with older adult social work specialist r/t polysubstance abuse 8) Continue to monitor I&O, labs, and skin integrity Expected Outcomes/Goals: 1) patient to receive nutrition support within 7 days of NPO status 2) labs and GI symptoms to improve 3) diet to advance 4) f/u in 2-3 days Date of Service: Jan 26, 2025 Billing Provider: JOHN PEARCE Common Visit Codes: [id number] CARE 30-74 MIN JOHN PEARCE Jan 26, 2025 17:30
[2025-01-26] MEDS: VANCOMYCIN 500mg/100mL 100 ML IV ONE (17:52)
--- NOTE | 2025-01-26 17:53 | DVHPNRES ---
Progress Note Date Seen: Jan 26, 2025 Resident Creating Document: SONA HEARD VANESSA Has the PT tested + for MRSA If YES, has PT been informed?: No Medical Necessity Reason Pt with a Central, PICC or Fol: Yes The following are medically ne: Young Catheter Reason for young catheter: Strict I&O Subjective Review of Systems Patient seen and examined at bedside. Patient is sedated on mechanical ventilation, review of systems could not obtain Objective vital signs Vital Sign Date Time Temp Pulse Resp B/P (MAP) Pulse Ox O2 Delivery O2 Flow Rate FiO2 01/26/25 16:45 99.1 79 20 130/74 (92) 100 99.1 01/26/25 16:17 40 01/26/25 16:17 Mechanical Ventilator+ 01/24/25 08:00 0 Total Intake and Output 01/25/25 01/25/25 01/26/25 15:00 23:00 07:00 Intake Total 357 ml 431.690 ml 423.68 ml Output Total 900 ml 950 ml Balance 357 ml -468.310 ml -526.32 ml medications Current Medications Medications Dose Ordered Sig/Natividad Route Start Time Stop Time Status Last Admin Dose Admin Propofol 100 ml @ 3.015 mls/ hr Q24H IV 01/19/25 11:15 01/25/25 20:34 3.015 MLS/HR Midazolam HCl 50 ml @ 1 mls/hr Q24H IV 01/19/25 11:15 01/26/25 14:09 11 MLS/HR Fentanyl Citrate 250 ml @ 2.5 mls/hr Q24H IV 01/19/25 11:15 01/26/25 10:33 22.5 MLS/HR Pantoprazole Sodium 40 mg BID IV 01/19/25 22:00 01/26/25 10:44 40 MG Thiamine HCl 100 mg DAILY IV 01/20/25 10:00 01/26/25 10:44 100 MG Folic Acid 1 mg/ Dextrose 50.2 ml @ 200.8 mls/ hr DAILY INJ 01/20/25 10:00 01/26/25 10:45 200.8 MLS/HR Polyethylene Glycol 17 gm DAILY PO 01/20/25 10:00 01/26/25 10:44 17 GM Dextrose 50 ml UD PRN IV 01/19/25 13:15 Diagnostic Test (Pha) 1 strip Q6HR 01/23/25 10:00 01/26/25 12:00 1 STRIP Insulin Human Lispro Q6HR SC 01/23/25 10:00 01/26/25 12:00 1 UNITS Amlodipine Besylate 5 mg DAILY PO 01/24/25 10:00 01/26/25 10:45 5 MG Metoclopramide HCl 5 mg Q8HR IV 01/23/25 16:30 01/26/25 05:37 5 MG Acetaminophen 650 mg Q6HP PRN PO 01/24/25 09:15 01/26/25 11:01 650 MG Carvedilol 3.125 mg Q12HR PO 01/24/25 10:00 01/26/25 11:00 3.125 MG Vancomycin HCl 0 ml @ 0 mls/hr UD IV 01/24/25 11:00 Meropenem 50 ml @ 17 mls/hr Q12HR IV 01/24/25 13:19 01/26/25 10:44 17 MLS/HR Sennosides 8.6 mg HS PO 01/24/25 22:00 01/25/25 22:09 8.6 MG Furosemide 60 mg BIDD IV 01/25/25 18:00 01/26/25 05:37 60 MG Lactulose 30 ml BID PO 01/25/25 22:00 01/26/25 10:44 30 ML Norepinephrine Bitartrate 250 ml @ 3.75 mls/hr Q24H IV 01/26/25 14:30 Enteral Nutritional Formula 1,000 ml 50ML/HR GT 01/26/25 17:00 UNV Examination General: RASS -4, afebrile, mucosae are moist Cardiovascular: Normal S1 and S2. No murmurs, gallops or rubs Respiratory: Mechanically assisted ventilation, equal bilateral airway entree. Clear lung sounds on auscultation Abdomen: Soft, nontender, no organomegaly, normal bowel sounds MSK/skin: Right hand fingers are blue (involve more distal phalanx) and warm, status post right arterial artery exploration, underwent thrombectomy of right radial artery. Neurological: Orientation cannot be assessed. No apparent motor no sensitive deficits. Pupils are isocoric and reactive laboratory and microbiology Laboratory Tests 01/26/25 09:49 01/26/25 03:44 Test 01/26/25 09:49 Range/Units Serum Glucose 176 H 74-106 mg/dL Microbiology Date/Time Source Procedure Growth Status 01/23/25 20:14 Lung Pending Resulted 01/23/25 20:14 Lung Pending Resulted 01/23/25 20:14 Lung Pending Resulted 01/23/25 20:14 Lung Pending Resulted 01/23/25 20:14 Lung - Final See Separate Report... Resulted 01/23/25 20:14 Bronchial Washings Gram Stain - Final Resulted 01/23/25 20:14 Respiratory Culture - Preliminary Presumptive Lelo albicans Resulted 01/23/25 13:10 Blood Blood Culture - Preliminary NO GROWTH AFTER 72 HOURS OF INCUBATION. Resulted 01/18/25 06:08 Voided Urine Urine Culture - Final Complete Labs and/or images reviewed: Labs reviewed by me, Image(s) reviewed by me Problem List/Assessment/Plan Problem List/Assessment/Plan This is a 60-year-old male with past medical history of alcohol use disorder, current heavy smoker, gout, dyslipidemia, came to the hospital due to low back pain. On 2nd day of admission, the patient is stabilized, developed AFib and SVT, underwent cardioversion and adenosine was given subsequently, due to respiratory distress and inability to maintain respiratory tract, the patient was sedated, intubated and put on mechanical ventilation. NEURO: Acute metabolic/toxic encephalopathy likely due to sepsis/alcohol use disorder * Sedated, on MV with RASS score -4 CARDIOVASCULAR: ? Cardiogenic shock, likely due to AFib with RVR/SVT Atrial fibrillation with RVR/SVT Acquired coagulopathy ? Acute on chronic Heart failure with reduced ejection fraction NSTEMI, likely type 2 due to above Sinus bradycardia ? Endocarditis * Patient was 2 times reverted to NSR with cardioversion, subsequently put on amiodarone drip for 2 days, discontinued due to regaining sinus rhythm and bradycardia * EKG upon admission showed sinus rhythm with no significant ST or T-wave changes * Subsequent EKGs showed AFib with RVR and SVT * Today, EKGs shows sinus bradycardia with no significant ST or T-wave changes * Echo shows, LVEF 45% severe pulmonary hypertension (RVSP 64) * BNP is raised at 450s * Cardiology is on the board, planned for CLAUDE for 01/27/2025 PULMONARY: Acute hypoxic respiratory failure, likely due to pneumonia Pneumonia, likely due to Gram-positive/Gram-negative bacteria/viral ? Pulmonary hypertension Possible obstructive sleep apnea Atelectasis * CT scan shows, bilateral small pleural effusion * Chest x-ray shows, closed left costophrenic angle * Bronchoscopy performed on 01/16/2024, had copious amount of mucus on bilateral main bronchus, sample sent for culture * Pulmonology is on the board GASTROINTESTINAL: ? Upper GI bleeding, likely due to liver cirrhosis/portal hypertension Alcohol use disorder Hepatomegaly and hepatic steatosis, likely due to alcohol use disorder Splenomegaly, likely due to above Bilateral indirect inguinal hernia, fatigue content extending to the scrotum Diverticulosis * GI is on the board, recommended medical management at the moment * Thiamine and folic acid GENITOURINARY: JOSE on possible CKD, likely VMN (baseline record not available) * Nephrology on the board, performed 4 session of HD, last session on 01/26/2025 * Lasix 40 mg b.i.d. * Consulted IR for tunneled catheter ENDOCRINE: Newly diagnosed Diabetes, with hyperglycemia Dyslipidemia Thyroid nodule Obesity * HBA1c is 6.5 * Lispro subcutaneous q.6 hours METABOLIC: Gout Hypokalemia Hypocalcemia * Mild hypernatremia HEME: Severe thrombocytopenia, likely due to liver cirrhosis Mild anemia, normocytic normochromic * Status post transfusion of 1 unit RBC, 1 units FFP, and 1 unit platelet INFECTIOUS DISEASE: ? Septic shock likely due to pneumonia/bacteremia Recurrent spikes of fever * Blood culture shows Gram-negative right, Salmonella sensitive to ampicillin * Sputum culture shows E coli, sensitive to ampicillin * Vancomycin and cefepime was given for 5 days, DC on 01/15/2025 * Ampicillin IV started on 01/15/2025, due to episodes of fever, ampicillin discontinued on 01/24/2025 * Over 01/16/24, the patient had multiple episodes of fever, patient is started back on vancomycin and meropenem on 01/24/2025 and blood culture sent * Acetaminophen p.r.n. for fever DERMATOLOGY: Right hand acute PAD/acute limb ischemia possibly due to arterial thrombosis, leading to possible right hand fingertip necrosis * Doppler ultrasound shows no significant arterial disease * Amlodipine 5 mg daily and local and sublingual nitroglycerin * Vascular surgeon consulted, performed right radial artery exploration with subsequent performed thrombectomy of the proximal radial artery MUSCULOSKELETAL: * Chronic back pain, due to severe lumbar disc disease DIET: Nepro 30 mL/hr DVT prophylax: Due to severe thrombocytopenia, no anticoagulant is indicated, SCDs GI prophylaxis: Protonix 40 mg b.i.d. Bowel regimen: MiraLax 17 g p.o. daily, glycerine suppository Code status: Code status discussed with the family (son), full code LINES/DRAINS/ACCESS: * ETT: Intubated on 01/19/2025 * IV access: Left internal jugular vein, placed on 01/19/2025 * Right subclavian tunneled catheter, placed on 01/26/2020 * Drips: Fentanyl * Young catheter: DISPOSITION: ICU status Patient's status discussed with patient's son, sister, and [id number] at the bedside. Critical care time spent more than 79 minutes, including patient care, chart review, and updating the family. Excluding any procedures. Case discussed with Dr. Chadwick Plan discussed with: Patient, Other (RN) My Orders My Orders Orders - SONA HEARD RESDIVIRI Procedure Category Date Status Time Chest Xray 1 View XY 01/26/25 Resulted 06:30 Npo (Nothing By DIET 01/26/25 Transmitted Mouth) Diet Breakfast Creatinine LAB 01/27/25 Verified 04:00 Vancomycin,Random LAB 01/27/25 Verified 04:00 Ct Ab Pel With Iv Con CT 01/26/25 Resulted Only 10:00 Dietary Evaluation Review Comments: 1) Initiate Nephro-Haritha @ 1 tb qd 2) If patient remains NPO > 7 days, consider EN/TPN to meet at least 75% of estimated daily needs 3) If GI route is preferred, consider Nepro CarbSteady @ 30 mL/hr goal rate as tolerated. EN regimen will provide 1296 kcals. 58g Pro, and 523 mL free H2O per 24 hrs. Goal rate will meet ~ 92% estimated daily energy needs and ~ 43% estimated daily protein needs. 4) Advance to 60g CCHO renal diet when medically feasible, pending ST approal 5) Refer to outpatient RD/CDCES for weight management 6) Follow-up with cardiology, pulmonology, nephrology, gastroenterology, and hepatology 7) Follow-up with criminal justice social worker r/t polysubstance abuse 8) Continue to monitor I&O, labs, and skin integrity Expected Outcomes/Goals: 1) patient to receive nutrition support within 7 days of NPO status 2) labs and GI symptoms to improve 3) diet to advance 4) f/u in 2-3 days Date of Service: Jan 26, 2025 Billing Provider: PINA CHADWICK MD Common Visit Codes: [id number] INP/OBS CARE(HIGH) SONA HEARD RESDIENT Jan 26, 2025 17:53 PINA CHADWICK MD Jan 30, 2025 08:38
--- NOTE | 2025-01-26 21:55 | DVHPN2 ---
Progress Note Date Seen: Jan 26, 2025 Has the PT tested + for MRSA If YES, has PT been informed?: No Medical Necessity Reason Pt with a Central, PICC or Fol: Yes The following are medically ne: Young Catheter Reason for young catheter: Strict I&O Subjective Patient reports: Other (intubated) Review of Systems: Deferred Objective vital signs Vital Sign Date Time Temp Pulse Resp B/P (MAP) Pulse Ox O2 Delivery O2 Flow Rate FiO2 01/26/25 21:48 111/61 01/26/25 21:46 80 01/26/25 21:00 20 99 01/26/25 20:28 40 01/26/25 20:00 101.1 101.1 01/26/25 20:00 Mechanical Ventilator+ 01/24/25 08:00 0 Total Intake and Output 01/25/25 01/25/25 01/26/25 15:00 23:00 07:00 Intake Total 357 ml 431.690 ml 463.21 ml Output Total 900 ml 950 ml Balance 357 ml -468.310 ml -486.79 ml medications Current Medications Medications Dose Ordered Sig/Natividad Route Start Time Stop Time Status Last Admin Dose Admin Propofol 100 ml @ 3.015 mls/ hr Q24H IV 01/19/25 11:15 01/25/25 20:34 3.015 MLS/HR Midazolam HCl 50 ml @ 1 mls/hr Q24H IV 01/19/25 11:15 01/26/25 18:41 11 MLS/HR Fentanyl Citrate 250 ml @ 2.5 mls/hr Q24H IV 01/19/25 11:15 01/26/25 21:48 22.5 MLS/HR Pantoprazole Sodium 40 mg BID IV 01/19/25 22:00 01/26/25 21:45 40 MG Thiamine HCl 100 mg DAILY IV 01/20/25 10:00 01/26/25 10:44 100 MG Folic Acid 1 mg/ Dextrose 50.2 ml @ 200.8 mls/ hr DAILY INJ 01/20/25 10:00 01/26/25 10:45 200.8 MLS/HR Polyethylene Glycol 17 gm DAILY PO 01/20/25 10:00 01/26/25 10:44 17 GM Dextrose 50 ml UD PRN IV 01/19/25 13:15 Diagnostic Test (Pha) 1 strip Q6HR 01/23/25 10:00 01/26/25 18:16 1 STRIP Insulin Human Lispro Q6HR SC 01/23/25 10:00 01/26/25 12:00 1 UNITS Amlodipine Besylate 5 mg DAILY PO 01/24/25 10:00 01/26/25 10:45 5 MG Metoclopramide HCl 5 mg Q8HR IV 01/23/25 16:30 01/26/25 21:45 5 MG Acetaminophen 650 mg Q6HP PRN PO 01/24/25 09:15 01/26/25 18:41 650 MG Carvedilol 3.125 mg Q12HR PO 01/24/25 10:00 01/26/25 21:46 3.125 MG Vancomycin HCl 0 ml @ 0 mls/hr UD IV 01/24/25 11:00 Meropenem 50 ml @ 17 mls/hr Q12HR IV 01/24/25 13:19 01/26/25 21:45 17 MLS/HR Sennosides 8.6 mg HS PO 01/24/25 22:00 01/25/25 22:09 8.6 MG Furosemide 60 mg BIDD IV 01/25/25 18:00 01/26/25 17:59 60 MG Lactulose 30 ml BID PO 01/25/25 22:00 01/26/25 10:44 30 ML Norepinephrine Bitartrate 250 ml @ 3.75 mls/hr Q24H IV 01/26/25 14:30 Enteral Nutritional Formula 1,000 ml 50ML/HR GT 01/26/25 17:00 Examination: GENERAL:Abnormal, MSK:Abnormal, SKIN:Abnormal, NEURO:Abnormal laboratory and microbiology Laboratory Tests 01/26/25 09:49 01/26/25 03:44 Test 01/26/25 09:49 Range/Units Serum Glucose 176 H 74-106 mg/dL Microbiology Date/Time Source Procedure Growth Status 01/23/25 20:14 Lung Pending Resulted 01/23/25 20:14 Lung Pending Resulted 01/23/25 20:14 Lung Pending Resulted 01/23/25 20:14 Lung Pending Resulted 01/23/25 20:14 Lung - Final See Separate Report... Resulted 01/23/25 20:14 Bronchial Washings Gram Stain - Final Resulted 01/23/25 20:14 Respiratory Culture - Preliminary Presumptive Lelo albicans Resulted 01/23/25 13:10 Blood Blood Culture - Preliminary NO GROWTH AFTER 72 HOURS OF INCUBATION. 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 Bilateral inguinal hernias extending into the scrotum Severe lumbar disc disease Congestive heart failure with reduced ejection fraction acute on chronic Thrombocytopenia Hypokalemia recs HD today after CT with contrast for solute clearance ---will hold HD for now as renal function recovering //uop better increase lasix dose --uop better k replace prn s/p tunneled cath Plan discussed with: Other Dietary Evaluation Review Comments: 1) Initiate Nephro-Haritha @ 1 tb qd 2) If patient remains NPO > 7 days, consider EN/TPN to meet at least 75% of estimated daily needs 3) If GI route is preferred, consider Nepro CarbSteady @ 30 mL/hr goal rate as tolerated. EN regimen will provide 1296 kcals. 58g Pro, and 523 mL free H2O per 24 hrs. Goal rate will meet ~ 92% estimated daily energy needs and ~ 43% estimated daily protein needs. 4) Advance to 60g CCHO renal diet when medically feasible, pending ST approal 5) Refer to outpatient RD/CDCES for weight management 6) Follow-up with cardiology, pulmonology, nephrology, gastroenterology, and hepatology 7) Follow-up with secondary social studies teacher r/t polysubstance abuse 8) Continue to monitor I&O, labs, and skin integrity Expected Outcomes/Goals: 1) patient to receive nutrition support within 7 days of NPO status 2) labs and GI symptoms to improve 3) diet to advance 4) f/u in 2-3 days CAMERON HOLLOWAY MD Jan 26, 2025 21:55
--- NOTE | 2025-01-26 23:51 | DVHPN2 ---
Progress Note - Dictate Date Seen: Jan 26, 2025 Has the PT tested + for MRSA If YES, has PT been informed?: No Medical Necessity Reason Pt with a Central, PICC or Fol: Yes The following are medically ne: Young Catheter Reason for young catheter: Strict I&O Subjective [facility] Patient seen and examined at bedside. Sedated, intubated on mechanical ventilator. Overnight events reviewed. vital signs Vital Sign Date Time Temp Pulse Resp B/P (MAP) Pulse Ox O2 Delivery O2 Flow Rate FiO2 01/26/25 23:17 97/47 01/26/25 22:30 79 20 99 01/26/25 22:00 Mechanical Ventilator+ 40 40 01/26/25 20:00 101.1 101.1 01/24/25 08:00 0 Total Intake and Output 01/25/25 01/25/25 01/26/25 15:00 23:00 07:00 Intake Total 357 ml 431.690 ml 463.21 ml Output Total 900 ml 950 ml Balance 357 ml -468.310 ml -486.79 ml medications Current Medications Medications Dose Ordered Sig/Natividad Route Start Time Stop Time Status Last Admin Dose Admin Propofol 100 ml @ 3.015 mls/ hr Q24H IV 01/19/25 11:15 01/26/25 23:17 6.03 MLS/HR Midazolam HCl 50 ml @ 1 mls/hr Q24H IV 01/19/25 11:15 01/26/25 23:15 10 MLS/HR Fentanyl Citrate 250 ml @ 2.5 mls/hr Q24H IV 01/19/25 11:15 01/26/25 21:48 22.5 MLS/HR Pantoprazole Sodium 40 mg BID IV 01/19/25 22:00 01/26/25 21:45 40 MG Thiamine HCl 100 mg DAILY IV 01/20/25 10:00 01/26/25 10:44 100 MG Folic Acid 1 mg/ Dextrose 50.2 ml @ 200.8 mls/ hr DAILY INJ 01/20/25 10:00 01/26/25 10:45 200.8 MLS/HR Polyethylene Glycol 17 gm DAILY PO 01/20/25 10:00 01/26/25 10:44 17 GM Dextrose 50 ml UD PRN IV 01/19/25 13:15 Diagnostic Test (Pha) 1 strip Q6HR 01/23/25 10:00 01/26/25 18:16 1 STRIP Insulin Human Lispro Q6HR SC 01/23/25 10:00 01/26/25 12:00 1 UNITS Amlodipine Besylate 5 mg DAILY PO 01/24/25 10:00 01/26/25 10:45 5 MG Metoclopramide HCl 5 mg Q8HR IV 01/23/25 16:30 01/26/25 21:45 5 MG Acetaminophen 650 mg Q6HP PRN PO 01/24/25 09:15 01/26/25 18:41 650 MG Carvedilol 3.125 mg Q12HR PO 01/24/25 10:00 01/26/25 21:46 3.125 MG Vancomycin HCl 0 ml @ 0 mls/hr UD IV 01/24/25 11:00 Meropenem 50 ml @ 17 mls/hr Q12HR IV 01/24/25 13:19 01/26/25 21:45 17 MLS/HR Sennosides 8.6 mg HS PO 01/24/25 22:00 01/25/25 22:09 8.6 MG Furosemide 60 mg BIDD IV 01/25/25 18:00 01/26/25 17:59 60 MG Lactulose 30 ml BID PO 01/25/25 22:00 01/26/25 10:44 30 ML Norepinephrine Bitartrate 250 ml @ 3.75 mls/hr Q24H IV 01/26/25 14:30 Enteral Nutritional Formula 1,000 ml 50ML/HR GT 01/26/25 17:00 objective Gen.: Patient lying in bed in medical ICU. Sedated, intubated on mechanical ventilator. Head: Normocephalic, atraumatic. Eyes: PERRLA. Ears: Normal external anatomy. Throat: Endotracheal tube and orogastric tube in place. Neck: Supple, trachea midline. Chest: Transmitted breath sounds bilaterally. Decreased air entry bilaterally. No wheezing. Bibasilar crackles. Cardiovascular: Positive S1, positive S2. Regular rate and rhythm. Abdomen: Positive bowel sounds in all 4 quadrants. Soft, nontender, nondistended. : Young in place. Normal external genitalia. Rectal: Deferred. Skin: Warm, dry. Intact. Extremities: 2+ radial pulses bilaterally. No lower extremity edema. Neuro: Sedated laboratory and microbiology Laboratory Tests 01/26/25 09:49 01/26/25 03:44 Test 01/26/25 09:49 Range/Units Serum Glucose 176 H 74-106 mg/dL Assessment/Plan Impression: Acute hypoxic respiratory failure On mechanical ventilator Sepsis ESRD, on hemodialysis Obesity, BMI 34.7 Events: Remains on vent support Vent settings: AC mode; RR 20, VT 500, PEEP 5, FiO2 40% Taper FiO2 as tolerated ABG reviewed, compensated. CXR shows bibasilar patchy airspace opacity. Devices in place. Sedated on Versed, Propofol and Fentanyl drip. HD per Nephrology - Hemodialysis this PM. S/p right radial thrombectomy by Vascular Surgery Vascular Surgery recommendations appreciated. Continue antibiotics Patient is afebrile Blood pressure control Accu-Cheks, ISS. Diurese with Lasix as tolerated HD per Nephrology Monitor renal function Monitor electrolytes. Supplement as necessary. Potassium supplementation Monitor ins and outs. Tube feeds for nutritional support CT abdomen-pelvis reviewed; Scattered fluid-filled small bowel loops; mild colonic diverticulosis; moderate retained stool in the colon. Moderate dependent consolidations in the bilateral lobes with air bronchograms likely atelectasis, though pneumonia (which can be on the basis of aspiration) is an additional consideration. Mild hepatosplenomegaly. Gastric tube terminates in the gastric fundus. S/p therapeutic bronchoscopy with RML BAL yesterday (01/23); cleared mucous plugging from L6-L10 and R1-R10. Sent for bacterial, fungal and viral cultures - follow up results. Limited chest ultrasound on 01/23 revealed compressive atelectasis. Consolidated lung. No pleural effusion noted. Please see separate procedure notes for details Labs and imaging reviewed. Rest of plan as noted below. Plan: s/p intubation on mechanical ventilator. Vent settings: AC mode; RR 20, VT 500, PEEP 5, FiO2 40% Titrate FIO2 to keep O2 saturation above 90%. VAP bundle. Daily ABG and CXR while intubated Sedated for vent synchrony Antibiotics. F/u cultures - Blood culture positive; bacteremia w/ Salmonella species. Repeat blood cultures show no growth Pressors as necessary for hemodynamic support. Titrate to keep MAP greater than 65 mmHg. Monitor hemoglobin Accu-Cheks, ISS. HD per Nephrology Monitor renal function Monitor electrolytes. Supplement as necessary. Monitor ins and outs. Diet and lifestyle modifications for weight reduction Obesity - complicates all care GI/DVT prophylaxis. Prognosis: Poor given patient's multiple co-morbidities. Condition: Critical Rest of plan per hospitalist and other consultants. A total of 35 minutes of critical care time was spent reviewing the patient record, examining the patient, making a diagnostic and therapeutic plan, discussing this plan with the medical personnel, following up on diagnostic studies and following the patient for clinical stability excluding any and all procedures. At least 50% of this time was spent in direct, [id number] contact. Thank you Dr. Dai for allowing me to participate in this patient's care. Further recommendations will depend on the patient's clinical course. Please do not hesitate to contact me if you have any questions or concerns. This medical document was created using an electronic medical record system with [employer] dictation system. Although these documentations are being carefully reviewed, there may still be some phonetic and typographical changes. The errors are purely typographical, due to imperfection on the software program, and do not reflect any compromise in the patient's medical care. Dietary Evaluation Review Comments: 1) Initiate Nephro-Haritha @ 1 tb qd 2) If patient remains NPO > 7 days, consider EN/TPN to meet at least 75% of estimated daily needs 3) If GI route is preferred, consider Nepro CarbSteady @ 30 mL/hr goal rate as tolerated. EN regimen will provide 1296 kcals. 58g Pro, and 523 mL free H2O per 24 hrs. Goal rate will meet ~ 92% estimated daily energy needs and ~ 43% estimated daily protein needs. 4) Advance to 60g CCHO renal diet when medically feasible, pending ST approal 5) Refer to outpatient RD/CDCES for weight management 6) Follow-up with cardiology, pulmonology, nephrology, gastroenterology, and hepatology 7) Follow-up with social insurance administrator r/t polysubstance abuse 8) Continue to monitor I&O, labs, and skin integrity Expected Outcomes/Goals: 1) patient to receive nutrition support within 7 days of NPO status 2) labs and GI symptoms to improve 3) diet to advance 4) f/u in 2-3 days Plan discussed with: Other (DENISSE Zamora) Critical Care Time(min): 35 TIM GE MD Jan 26, 2025 23:51
[2025-01-27] VITALS (106 sets, daily range): BP systolic 78–144; BP diastolic 38–73; PULSE 60–103; RESP 12–28; TEMP 98.1–101.5; O2SAT 95–100
[2025-01-27 04:03] LABS: Hematocrit 38.7 % (41.0-53.0); Hemoglobin 12.8 g/dL (13.5-17.5); Mean Corpuscular Hemoglobin 28.9 pg (28.0-32.0); Mean Corpuscular Volume 87.6 fL (80.0-100.0); Nucleated Red Blood Cells % 0.5 %
[2025-01-27 04:26] LABS: Albumin 3.5 g/dL (3.2-4.8); Anion Gap 12 (5-15); BUN/Creatinine Ratio 29.4 (10.0-20.0); Carbon Dioxide 30 mmol/L (20-31); Chloride 104 mmol/L (98-107); Potassium 3.9 mmol/L (3.5-5.1); Total Protein 5.9 g/dL (5.7-8.2)
[2025-01-27 04:37] LABS: Alanine Aminotransferase 52 U/L (7-40); Alkaline Phosphatase 310 U/L (46-116); Bilirubin, Total 1.3 mg/dL (0.2-1.0); Blood Urea Nitrogen 60 mg/dL (9-23); Calcium 8.7 mg/dL (8.7-10.4); Glucose 144 mg/dL (74-106); Sodium 146 mmol/L (136-145)
--- NOTE | 2025-01-27 05:41 | DVH ---
CHEST RADIOGRAPH Indication: Pneumonia Technique: Single frontal view of the chest was obtained COMPARISON: XY CHEST XRAY 1 VIEW on DOS: 01/26/25, XY CHEST XRAY 1 VIEW on DOS: 01/25/25, XY CHEST PORT ABLE on DOS: 01/24/25, XY CHEST XRAY 1 VIEW on DOS: 01/24/25, XY CHEST PORTABLE on DOS: 01/23/25 FINDINGS: Lines and Tubes: Unchanged. Lungs: Stable small left pleural effusion and moderate diffuse increased prominence of the pulmonary vasculature. No pneumothorax. Cardiomediastinal contours: Cardiomegaly Bones: Unremarkable IMPRESSION: 1. Cardiomegaly, small left pleural effusion and diffuse increased prominence of the pulmonary vascul ature. 2. Lines and tubes unchanged.
[2025-01-27 08:28] LABS: Base Excess 4.0 mmol/L (-2.0-3.0)
--- NOTE | 2025-01-27 13:56 | DVHPN2 ---
Progress Note - Dictate Date Seen: Jan 27, 2025 Has the PT tested + for MRSA If YES, has PT been informed?: No Medical Necessity Reason Pt with a Central, PICC or Fol: Yes The following are medically ne: Young Catheter Reason for young catheter: Strict I&O Subjective Urine output increasing vital signs Vital Sign Date Time Temp Pulse Resp B/P (MAP) Pulse Ox O2 Delivery O2 Flow Rate FiO2 01/27/25 13:42 30 01/27/25 13:42 20 98 Mechanical Ventilator+ 01/27/25 13:42 73 01/27/25 13:30 109/55 (73) 01/27/25 12:08 101.5 Total Intake and Output 01/26/25 01/26/25 01/27/25 15:00 23:00 07:00 Intake Total 417.44 ml 479.24 ml 498.74 ml Output Total 900 ml 450 ml Balance 417.44 ml -420.76 ml 48.74 ml medications Current Medications Medications Dose Ordered Sig/Natividad Route Start Time Stop Time Status Last Admin Dose Admin Propofol 100 ml @ 3.015 mls/ hr Q24H IV 01/19/25 11:15 01/27/25 07:38 6.03 MLS/HR Midazolam HCl 50 ml @ 1 mls/hr Q24H IV 01/19/25 11:15 01/27/25 12:12 12 MLS/HR Fentanyl Citrate 250 ml @ 2.5 mls/hr Q24H IV 01/19/25 11:15 01/27/25 06:42 25 MLS/HR Pantoprazole Sodium 40 mg BID IV 01/19/25 22:00 01/27/25 07:38 40 MG Thiamine HCl 100 mg DAILY IV 01/20/25 10:00 01/27/25 07:38 100 MG Folic Acid 1 mg/ Dextrose 50.2 ml @ 200.8 mls/ hr DAILY INJ 01/20/25 10:00 01/27/25 07:39 200.8 MLS/HR Polyethylene Glycol 17 gm DAILY PO 01/20/25 10:00 01/26/25 10:44 17 GM Dextrose 50 ml UD PRN IV 01/19/25 13:15 Diagnostic Test (Pha) 1 strip Q6HR 01/23/25 10:00 01/27/25 11:39 1 STRIP Insulin Human Lispro Q6HR SC 01/23/25 10:00 01/27/25 00:36 1 UNITS Amlodipine Besylate 5 mg DAILY PO 01/24/25 10:00 01/27/25 07:39 5 MG Metoclopramide HCl 5 mg Q8HR IV 01/23/25 16:30 01/27/25 13:13 5 MG Acetaminophen 650 mg Q6HP PRN PO 01/24/25 09:15 01/27/25 11:04 650 MG Carvedilol 3.125 mg Q12HR PO 01/24/25 10:00 01/27/25 07:39 3.125 MG Vancomycin HCl 0 ml @ 0 mls/hr UD IV 01/24/25 11:00 Meropenem 50 ml @ 17 mls/hr Q12HR IV 01/24/25 13:19 01/27/25 07:39 17 MLS/HR Sennosides 8.6 mg HS PO 01/24/25 22:00 01/25/25 22:09 8.6 MG Furosemide 60 mg BIDD IV 01/25/25 18:00 01/27/25 05:53 60 MG Lactulose 30 ml BID PO 01/25/25 22:00 01/27/25 07:39 30 ML Norepinephrine Bitartrate 250 ml @ 3.75 mls/hr Q24H IV 01/26/25 14:30 Enteral Nutritional Formula 1,000 ml 50ML/HR GT 01/26/25 17:00 Fluconazole 100 ml @ 100 mls/hr Q1HR IV 01/27/25 14:00 01/27/25 17:59 UNV Fluconazole 100 ml @ 100 mls/hr 10,11,12,13 IV 01/28/25 10:00 UNV objective Gen: Intubated heent: nc/at, mmm lungs: cta anteriorly cvs: no rub abd: soft, bowel sounds audible ext: + edema laboratory and microbiology Laboratory Tests 01/27/25 03:08 Test 01/27/25 03:08 Range/Units Serum Glucose 144 H 74-106 mg/dL Assessment/Plan 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 EN regimen will provide 1296 kcals. 58g Pro, and 523 mL free H2O per 24 hrs. Goal rate will meet ~ 92% estimated daily energy needs and ~ 43% estimated daily protein needs. 4) Advance to 60g CCHO renal diet when medically feasible, pending ST approal 5) Refer to outpatient RD/CDCES for weight management 6) Follow-up with cardiology, pulmonology, nephrology, gastroenterology, and hepatology 7) Follow-up with social sciences professor r/t polysubstance abuse 8) Continue to monitor I&O, labs, and skin integrity Expected Outcomes/Goals: 1) patient to receive nutrition support within 7 days of NPO status 2) labs and GI symptoms to improve 3) diet to advance 4) f/u in 2-3 days Plan discussed with: MARK Hamilton MD Jan 27, 2025 13:56
--- NOTE | 2025-01-27 14:35 | DVH ---
FLUOROSCOPY TIME: 8 seconds TECHNIQUE: Intraoperative radiographs of the left wrist were obtained. COMPARISON: None FINDINGS: Refer to intraoperative report for further evaluation. IMPRESSION: Refer to intraoperative report for further evaluation.
[2025-01-27] MEDS: FLUCONAZOLE 200MG/100ML 100 ML IV SCH (15:00)
--- NOTE | 2025-01-27 15:25 | DVHPNRES ---
Progress Note Date Seen: Jan 27, 2025 Resident Creating Document: SONA HEARD VANESSA Has the PT tested + for MRSA If YES, has PT been informed?: No Medical Necessity Reason Pt with a Central, PICC or Fol: Yes The following are medically ne: Central Line (Left non tunneled IJ and tunneled right subclavian), Young Catheter Reason for young catheter: Strict I&O Subjective Review of Systems Patient seen and examined at the bedside. sedated and on MV. Objective vital signs Vital Sign Date Time Temp Pulse Resp B/P (MAP) Pulse Ox O2 Delivery O2 Flow Rate FiO2 01/27/25 13:56 71 20 111/55 (73) 100 30 01/27/25 13:42 Mechanical Ventilator+ 01/27/25 12:08 101.5 Total Intake and Output 01/26/25 01/26/25 01/27/25 15:00 23:00 07:00 Intake Total 417.44 ml 479.24 ml 498.74 ml Output Total 900 ml 450 ml Balance 417.44 ml -420.76 ml 48.74 ml medications Current Medications Medications Dose Ordered Sig/Natividad Route Start Time Stop Time Status Last Admin Dose Admin Propofol 100 ml @ 3.015 mls/ hr Q24H IV 01/19/25 11:15 01/27/25 07:38 6.03 MLS/HR Midazolam HCl 50 ml @ 1 mls/hr Q24H IV 01/19/25 11:15 01/27/25 12:12 12 MLS/HR Fentanyl Citrate 250 ml @ 2.5 mls/hr Q24H IV 01/19/25 11:15 01/27/25 06:42 25 MLS/HR Pantoprazole Sodium 40 mg BID IV 01/19/25 22:00 01/27/25 07:38 40 MG Thiamine HCl 100 mg DAILY IV 01/20/25 10:00 01/27/25 07:38 100 MG Folic Acid 1 mg/ Dextrose 50.2 ml @ 200.8 mls/ hr DAILY INJ 01/20/25 10:00 01/27/25 07:39 200.8 MLS/HR Polyethylene Glycol 17 gm DAILY PO 01/20/25 10:00 01/26/25 10:44 17 GM Dextrose 50 ml UD PRN IV 01/19/25 13:15 Diagnostic Test (Pha) 1 strip Q6HR 01/23/25 10:00 01/27/25 11:39 1 STRIP Insulin Human Lispro Q6HR SC 01/23/25 10:00 01/27/25 00:36 1 UNITS Amlodipine Besylate 5 mg DAILY PO 01/24/25 10:00 01/27/25 07:39 5 MG Metoclopramide HCl 5 mg Q8HR IV 01/23/25 16:30 01/27/25 13:13 5 MG Acetaminophen 650 mg Q6HP PRN PO 01/24/25 09:15 01/27/25 11:04 650 MG Carvedilol 3.125 mg Q12HR PO 01/24/25 10:00 01/27/25 07:39 3.125 MG Vancomycin HCl 0 ml @ 0 mls/hr UD IV 01/24/25 11:00 Meropenem 50 ml @ 17 mls/hr Q12HR IV 01/24/25 13:19 01/27/25 07:39 17 MLS/HR Sennosides 8.6 mg HS PO 01/24/25 22:00 01/25/25 22:09 8.6 MG Furosemide 60 mg BIDD IV 01/25/25 18:00 01/27/25 05:53 60 MG Lactulose 30 ml BID PO 01/25/25 22:00 01/27/25 07:39 30 ML Norepinephrine Bitartrate 250 ml @ 3.75 mls/hr Q24H IV 01/26/25 14:30 Enteral Nutritional Formula 1,000 ml 50ML/HR GT 01/26/25 17:00 Fluconazole 100 ml @ 100 mls/hr Q1HR IV 01/27/25 15:00 01/27/25 18:59 Fluconazole 100 ml @ 100 mls/hr 1300,1400 IV 01/28/25 13:00 Examination General: RASS -4, afebrile, mucosae are moist Cardiovascular: Normal S1 and S2. No murmurs, gallops or rubs Respiratory: Mechanically assisted ventilation, equal bilateral airway entree. Clear lung sounds on auscultation Abdomen: Soft, nontender, no organomegaly, normal bowel sounds MSK/skin: Right hand fingers are blue (involve more distal phalanx) and warm, status post right arterial artery exploration, underwent thrombectomy of right radial artery. Neurological: Orientation cannot be assessed. No apparent motor no sensitive deficits. Pupils are isocoric and reactive laboratory and microbiology Laboratory Tests 01/27/25 03:08 Test 01/27/25 03:08 Range/Units Serum Glucose 144 H 74-106 mg/dL Microbiology Date/Time Source Procedure Growth Status 01/23/25 20:14 Lung Pending Resulted 01/23/25 20:14 Lung Pending Resulted 01/23/25 20:14 Lung Pending Resulted 01/23/25 20:14 Lung Pending Resulted 01/23/25 20:14 Lung - Final See Separate Report... Resulted 01/23/25 20:14 Bronchial Washings Gram Stain - Final Complete 01/23/25 20:14 Respiratory Culture - Final Presumptive Lelo albicans Complete 01/23/25 13:10 Blood Blood Culture - Preliminary NO GROWTH AFTER 72 HOURS OF INCUBATION. Resulted 01/18/25 06:08 Voided Urine Urine Culture - Final Complete Labs and/or images reviewed: Labs reviewed by me, Image(s) reviewed by me Problem List/Assessment/Plan Problem List/Assessment/Plan This is a 60-year-old male with past medical history of alcohol use disorder, current heavy smoker, gout, dyslipidemia, came to the hospital due to low back pain. On 2nd day of admission, the patient is stabilized, developed AFib and SVT, underwent cardioversion and adenosine was given subsequently, due to respiratory distress and inability to maintain respiratory tract, the patient was sedated, intubated and put on mechanical ventilation. NEURO: Acute metabolic/toxic encephalopathy likely due to sepsis/alcohol use disorder * Sedated, on MV with RASS score -4 * Head CT scan CARDIOVASCULAR: ? Cardiogenic shock, likely due to AFib with RVR/SVT Atrial fibrillation with RVR/SVT Acquired coagulopathy ? Acute on chronic Heart failure with reduced ejection fraction NSTEMI, likely type 2 due to above Sinus bradycardia ? Endocarditis * Patient was 2 times reverted to NSR with cardioversion, subsequently put on amiodarone drip for 2 days, discontinued due to regaining sinus rhythm and bradycardia * EKG upon admission showed sinus rhythm with no significant ST or T-wave changes * Subsequent EKGs showed AFib with RVR and SVT * Today, EKGs shows sinus bradycardia with no significant ST or T-wave changes * Echo shows, LVEF 45% severe pulmonary hypertension (RVSP 64) * BNP is raised at 450s * Cardiology is on the board, planned for CLAUDE for 01/27/2025 PULMONARY: Acute hypoxic respiratory failure, likely due to pneumonia Pneumonia, likely due to Gram-positive/Gram-negative bacteria/viral ? Pulmonary hypertension Possible obstructive sleep apnea Atelectasis * CT scan shows, bilateral small pleural effusion * Chest x-ray shows, closed left costophrenic angle * Bronchoscopy performed on 01/16/2024, had copious amount of mucus on bilateral main bronchus, sample sent for culture * Pulmonology is on the board GASTROINTESTINAL: ? Upper GI bleeding, likely due to liver cirrhosis/portal hypertension Alcohol use disorder Hepatomegaly and hepatic steatosis, likely due to alcohol use disorder Splenomegaly, likely due to above Bilateral indirect inguinal hernia, fatigue content extending to the scrotum Diverticulosis * GI is on the board, recommended medical management at the moment * Thiamine and folic acid GENITOURINARY: JOSE on possible CKD, likely VMN (baseline record not available) * Nephrology on the board, performed 4 session of HD, last session on 01/26/2025 * Lasix 40 mg b.i.d. * Consulted IR for tunneled catheter ENDOCRINE: Newly diagnosed Diabetes, with hyperglycemia Dyslipidemia Thyroid nodule Obesity * HBA1c is 6.5 * Lispro subcutaneous q.6 hours METABOLIC: Gout Hypokalemia Hypocalcemia * Mild hypernatremia HEME: Severe thrombocytopenia, likely due to liver cirrhosis Mild anemia, normocytic normochromic * Status post transfusion of 1 unit RBC, 1 units FFP, and 1 unit platelet INFECTIOUS DISEASE: ? Septic shock likely due to pneumonia/bacteremia Recurrent spikes of fever * Blood culture shows Gram-negative right, Salmonella sensitive to ampicillin * Sputum culture shows E coli, sensitive to ampicillin * Vancomycin and cefepime was given for 5 days, DC on 01/15/2025 * Ampicillin IV started on 01/15/2025, due to episodes of fever, ampicillin discontinued on 01/24/2025 * Over 01/16/24, the patient had multiple episodes of fever, patient is started back on vancomycin and meropenem on 01/24/2025 and blood culture sent * Acetaminophen p.r.n. for fever * Sputum culture shows, presumptive Lelo albicans, Fluconazole IV DERMATOLOGY: Right hand acute PAD/acute limb ischemia possibly due to arterial thrombosis, leading to possible right hand fingertip necrosis * Doppler ultrasound shows no significant arterial disease * Amlodipine 5 mg daily and local and sublingual nitroglycerin * Vascular surgeon consulted, performed right radial artery exploration with subsequent performed thrombectomy of the proximal radial artery MUSCULOSKELETAL: * Chronic back pain, due to severe lumbar disc disease DIET: Nepro 30 mL/hr DVT prophylax: Due to severe thrombocytopenia, no anticoagulant is indicated, SCDs GI prophylaxis: Protonix 40 mg b.i.d. Bowel regimen: MiraLax 17 g p.o. daily, glycerine suppository Code status: Code status discussed with the family (son), full code LINES/DRAINS/ACCESS: * ETT: Intubated on 01/19/2025 * IV access: Left internal jugular vein, placed on 01/19/2025 * Right subclavian tunneled catheter, placed on 01/25/2025 * Drips: Fentanyl * Young catheter DISPOSITION: ICU status Goals of care discussed with the patient's son for 20 minutes; full code Patient's status discussed with patient's son, sister, and [id number] at the bedside. Critical care time spent of 120 minutes excluding any procedures. Case discussed with Dr. Angel Plan discussed with: Son, Other (Sister; RN) My Orders My Orders Orders - SONA HEARD RESDIVIRI Procedure Category Date Status Time Chest Xray 1 View XY 01/27/25 Resulted 04:00 Abg W/ Co-Ox RT 01/27/25 Logged 04:00 Vancomycin,Random LAB 01/28/25 Verified 04:00 Complete Blood Count LAB 01/28/25 Verified 04:00 Creatinine LAB 01/28/25 Verified 04:00 Blood Culture TERE 01/27/25 In Process 13:[address] 01/27/25 Logged 13:30 Fluconazole PHA 01/27/25 In Process 200mg/100ml (Diflucan 15:00 Fluconazole PHA 01/28/25 In Process 200mg/100ml (Diflucan 13:00 Urine Bacterial TERE 01/27/25 Logged Culture 14:43 * Picc Line Consult CONS 01/27/25 Transmitted 15:08 Dietary Evaluation Review Comments: 1) Initiate Nephro-Haritha @ 1 tb qd 2) If patient remains NPO > 7 days, consider EN/TPN to meet at least 75% of estimated daily needs 3) If GI route is preferred, consider Nepro CarbSteady @ 30 mL/hr goal rate as tolerated. EN regimen will provide 1296 kcals. 58g Pro, and 523 mL free H2O per 24 hrs. Goal rate will meet ~ 92% estimated daily energy needs and ~ 43% estimated daily protein needs. 4) Advance to 60g CCHO renal diet when medically feasible, pending ST approal 5) Refer to outpatient RD/CDCES for weight management 6) Follow-up with cardiology, pulmonology, nephrology, gastroenterology, and hepatology 7) Follow-up with elementary school social worker r/t polysubstance abuse 8) Continue to monitor I&O, labs, and skin integrity Expected Outcomes/Goals: 1) patient to receive nutrition support within 7 days of NPO status 2) labs and GI symptoms to improve 3) diet to advance 4) f/u in 2-3 days Addendum Addendum Addendum I was physically present for the hurtado portions of the service provided to patient by THE RESIDENT. I have reviewed the documentation, discussed the case with resident and agree with the resident's documentation except as noted. Also the patient's clinical case was discussed with the patient's nurse. This medical document was created using an electronic medical record system with computerized dictation system. Although this document has been carefully reviewed, there might still be some phonetic and typographical errors. These areas are purely typographical due to imperfections of the software programs, and do not reflect any compromise in the patient's medical care. Late signature. Date of Service: Jan 27, 2025 Billing Provider: MILES ANGEL MD Common Visit Codes: 27196-XQSMRRAS CARE 30-74 MIN (120 minutes), 55066-[id number] CARE-EACH +30MIN Secondary Visit Codes: 25512-[id number] CARE PLAN 30 MINUTES (20 minutes) SONA HEARD RESDIVIRI Jan 27, 2025 15:24 MILES ANEGL MD Jan 28, 2025 06:09
--- NOTE | 2025-01-27 15:52 | DVHOP2 ---
Operative Report - 2 Report Details Date: 01/27/25 Preop Diagnosis: SBE. Postop Diagnosis: No evidence for SBE/vegetation Surgeon: Ni Sloan MD Anesthesiologist: Patient on ventilator and sedated Anesthesia: General, Mac, Local Consent: The patient was informed of the risks and benefits of the procedure. These include but are not limited to complications of anesthesia, postoperative infection, incomplete relief of symptoms, recurrence of symptoms, damage to blood vessels, nerves and tendons, deep venous thrombosis, pulmonary embolism and possible need for repeat surgery in the future. Complications: No complications Findings: Normal CLAUDE. Indications for Surgery: Fever. Possible vegetation Name of Procedure Performed Transesophageal echocardiography Procedure Details Procedure Details: Prior full informed consent obtained the patient was prepped and draped in usual fashion. A transesophageal probe was passed while patient was sedated and intubated. This was passed without difficulty. Standard views were obtained. Conclusions: technically good study. Sinus rhythm. Mild concentric LVH. There is mild redundancy of the papillary muscle in the chordae of the mitral leaflet posteriorly. Valves appear to be structurally normal. Left ventricular systolic performance is preserved at 60% with normal RV function. Doppler reveals trace mitral insufficiency. Mild tricuspid regurgitation. No pericardial effusion masses or vegetations delineated. There is mild redundancy of the papillary muscles as noted that may have accounted for an echogenicity confused were mistaken for a vegetation. Transesophageal echocardiography does not confirm a noted vegetation in the mitral leaflet. Bubble study is negative for crossover. No intra-atrial shunt or intraventricular shunts noted. The atrial appendage is within normal limits without thrombus. The aorta is within normal limits. . Condition Guarded Disposition Still a Patient Date of Service: Jan 27, 2025 Billing Provider: NI SLOAN Sr., MD Cardiology Common Codes: 33992-DMZAJTQ INP/OBS CARE (High) Cardiology Procedure Codes: 42443-ZSE W/IMG DOC INCL PROB ACQ NI SLOAN Sr., MD Jan 27, 2025 15:52
--- NOTE | 2025-01-27 16:00 | DVH ---
CT HEAD WITHOUT CONTRAST Indication: ALOC EXAM DATE: 01/27/2025 03:24 PM COMPARISON: None TECHNIQUE: CT of the head without intravenous contrast. RADIATION DOSE: CTDIvol: 48.71 mGy, DLP: 48.71 mGy*cm FINDINGS: There is no intracranial hemorrhage. There is no extra-axial fluid, mass, mass effect or midline shif t. The ventricles are midline and normal in size. Basilar cisterns are patent. Bland-white differentia tion is maintained. Mild volume loss. 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 Moderate bilateral mastoid effusions. Sphenoid and bilateral maxillary sinus disease.. Imaged portion of the orbits are unremarkable. Opacification of the nasal cavity, nasopharynx region. There is a o rogastric tube IMPRESSION: No intracranial hemorrhage or mass effect. Mild global cerebral volume loss. Bilateral mastoid effusions. Opacification of the nasopharynx which can be secondary to underlying mucous secretions, in the setti ng of an orogastric tube. Evaluate clinically to exclude any cutout pump nasopharyngeal mass.
--- NOTE | 2025-01-27 16:54 | DVHPN2 ---
Progress Note Date Seen: Jan 27, 2025 Resident Creating Document: NATALY BURNETTE RESIDENT Has the PT tested + for MRSA If YES, has PT been informed?: No Medical Necessity Reason Pt with a Central, PICC or Fol: Yes The following are medically ne: Young Catheter Reason for young catheter: Strict I&O Subjective Review of Systems * Patient remains intubated and sedated on mechanical ventilation. * GI: No new GI bleeding; NG aspirate remains non-bloody. * Feeds: Enteral feeding with Nepro ongoing at 50 mL/hr, tolerated. * Bowel: No bowel movement; continues on Miralax and Senna. * Liver function: LFTs (AST 64, ALT 60) continue to improve. * Renal: BUN remains elevated (60 mg/dL), creatinine 2.0 mg/dL; nephrology deferred dialysis today. * Antibiotics: Continuing IV Meropenem and Vancomycin; respiratory cultures show Lelo species (few growth). * Imaging: * Head CT (today): No intracranial hemorrhage/mass; findings consistent with intubation. * Abdominal CT (yesterday): No abscess or free air; mild diverticulosis; retained stool; hepatosplenomegaly; bilateral dependent consolidation/atelectasis vs. pneumonia. * CLAUDE: Preserved LV function (EF 60%); no vegetations, thrombus, or shunt. * WBC spiking, suggesting ongoing infection/inflammation. Brief Gist of Todays Progress * No GI bleeding; liver enzymes trending downward. * Enteral feeds advanced to 50 mL/hr, tolerated. * Constipation persists despite bowel regimen. * No intraabdominal abscess or new GI pathology on CT. * WBC rise likely due to ongoing sepsis; respiratory culture positive for Lelo. Objective vital signs Vital Sign Date Time Temp Pulse Resp B/P (MAP) Pulse Ox O2 Delivery O2 Flow Rate FiO2 01/27/25 16:06 73 22 130/58 (82) 96 30 01/27/25 16:00 Mechanical Ventilator+ 01/27/25 16:00 100.2 100.2 Total Intake and Output 01/26/25 01/26/25 01/27/25 15:00 23:00 07:00 Intake Total 417.44 ml 479.24 ml 498.74 ml Output Total 900 ml 450 ml Balance 417.44 ml -420.76 ml 48.74 ml medications Current Medications Medications Dose Ordered Sig/Natividad Route Start Time Stop Time Status Last Admin Dose Admin Propofol 100 ml @ 3.015 mls/ hr Q24H IV 01/19/25 11:15 01/27/25 07:38 6.03 MLS/HR Midazolam HCl 50 ml @ 1 mls/hr Q24H IV 01/19/25 11:15 01/27/25 12:12 12 MLS/HR Fentanyl Citrate 250 ml @ 2.5 mls/hr Q24H IV 01/19/25 11:15 01/27/25 06:42 25 MLS/HR Pantoprazole Sodium 40 mg BID IV 01/19/25 22:00 01/27/25 07:38 40 MG Thiamine HCl 100 mg DAILY IV 01/20/25 10:00 01/27/25 07:38 100 MG Folic Acid 1 mg/ Dextrose 50.2 ml @ 200.8 mls/ hr DAILY INJ 01/20/25 10:00 01/27/25 07:39 200.8 MLS/HR Polyethylene Glycol 17 gm DAILY PO 01/20/25 10:00 01/26/25 10:44 17 GM Dextrose 50 ml UD PRN IV 01/19/25 13:15 Diagnostic Test (Pha) 1 strip Q6HR 01/23/25 10:00 01/27/25 11:39 1 STRIP Insulin Human Lispro Q6HR SC 01/23/25 10:00 01/27/25 00:36 1 UNITS Amlodipine Besylate 5 mg DAILY PO 01/24/25 10:00 01/27/25 07:39 5 MG Metoclopramide HCl 5 mg Q8HR IV 01/23/25 16:30 01/27/25 13:13 5 MG Acetaminophen 650 mg Q6HP PRN PO 01/24/25 09:15 01/27/25 11:04 650 MG Carvedilol 3.125 mg Q12HR PO 01/24/25 10:00 01/27/25 07:39 3.125 MG Vancomycin HCl 0 ml @ 0 mls/hr UD IV 01/24/25 11:00 Meropenem 50 ml @ 17 mls/hr Q12HR IV 01/24/25 13:19 01/27/25 07:39 17 MLS/HR Sennosides 8.6 mg HS PO 01/24/25 22:00 01/25/25 22:09 8.6 MG Furosemide 60 mg BIDD IV 01/25/25 18:00 01/27/25 05:53 60 MG Lactulose 30 ml BID PO 01/25/25 22:00 01/27/25 07:39 30 ML Norepinephrine Bitartrate 250 ml @ 3.75 mls/hr Q24H IV 01/26/25 14:30 Enteral Nutritional Formula 1,000 ml 50ML/HR GT 01/26/25 17:00 Fluconazole 100 ml @ 100 mls/hr Q1HR IV 01/27/25 15:00 01/27/25 18:59 01/27/25 16:04 100 MLS/HR Fluconazole 100 ml @ 100 mls/hr 1300,1400 IV 01/28/25 13:00 Examination * General: Intubated, sedated, critically ill. * Abdomen: Soft, non-tender, non-distended, no guarding, active bowel sounds. * NG Tube: In situ, draining non-bloody aspirate; feeds running at 50 mL/hr. * Skin: Right hand with distal necrotic changes; warm proximally. * Other systems: Stable on current support. laboratory and microbiology Laboratory Tests 01/27/25 03:08 Test 01/27/25 03:08 Range/Units Serum Glucose 144 H 74-106 mg/dL Microbiology Date/Time Source Procedure Growth Status 01/23/25 20:14 Lung Pending Resulted 01/23/25 20:14 Lung Pending Resulted 01/23/25 20:14 Lung Pending Resulted 01/23/25 20:14 Lung Pending Resulted 01/23/25 20:14 Lung - Final See Separate Report... Resulted 01/23/25 20:14 Bronchial Washings Gram Stain - Final Complete 01/23/25 20:14 Respiratory Culture - Final Presumptive Lelo albicans Complete 01/23/25 13:10 Blood Blood Culture - Preliminary NO GROWTH AFTER 72 HOURS OF INCUBATION. Resulted 01/18/25 06:08 Voided Urine Urine Culture - Final Complete Problem List/Assessment/Plan Problem List/Assessment/Plan Assessment 1. Upper GI bleeding resolved/stable * No new bleeding; NG aspirate clear; H/H stable. 2. Alcoholic cirrhosis with portal hypertension * MELD remains high; LFTs improving; continue monitoring. 3. Critical illness with gastroparesis improving with prokinetic therapy. 4. Constipation persistent despite regimen, possibly opioid/sedation related. 5. Sepsis with WBC spike on antibiotics; respiratory culture positive for Lelo (likely colonization vs. infection). 6. Enteral feeding well tolerated at 50 mL/hr. Plan GI System Gastrointestinal / Nutrition * Continue enteral feeding (Nepro) at 50 mL/hr; monitor residuals q4h. * Maintain IV Protonix 40 mg BID for stress ulcer and variceal prophylaxis. * Continue IV Reglan 5 mg q8h to improve gastric motility. * Continue bowel regimen (Miralax + Senna); if no BM within 24 hrs, add lactulose or rectal suppository. * Maintain aspiration precautions (HOB >30). Hepatic * Daily LFTs, INR, ammonia. * Avoid hepatotoxic drugs; monitor for encephalopathy. Infection Control (GI Context) * Continue Meropenem and Vancomycin and Fluconazole Case discussed in detail with the attending physician, including the clinical presentation, diagnostic workup, and comprehensive management plan. Plan discussed with: Other (RN) My Orders My Orders Orders - NATALY BURNETTE RESIDENT Procedure Category Date Status Time Nutritional PHA 01/26/25 In Process Supplements (Nepro 17:00 Dietary Evaluation Review Comments: 1) Initiate Nephro-Haritha @ 1 tb qd 2) If patient remains NPO > 7 days, consider EN/TPN to meet at least 75% of estimated daily needs 3) If GI route is preferred, consider Nepro CarbSteady @ 30 mL/hr goal rate as tolerated. EN regimen will provide 1296 kcals. 58g Pro, and 523 mL free H2O per 24 hrs. Goal rate will meet ~ 92% estimated daily energy needs and ~ 43% estimated daily protein needs. 4) Advance to 60g CCHO renal diet when medically feasible, pending ST approal 5) Refer to outpatient RD/CDCES for weight management 6) Follow-up with cardiology, pulmonology, nephrology, gastroenterology, and hepatology 7) Follow-up with high school social studies tutor r/t polysubstance abuse 8) Continue to monitor I&O, labs, and skin integrity Expected Outcomes/Goals: 1) patient to receive nutrition support within 7 days of NPO status 2) labs and GI symptoms to improve 3) diet to advance 4) f/u in 2-3 days NATALY BURNETTE RESIDENT Jan 27, 2025 16:53
--- NOTE | 2025-01-27 23:47 | DVHPN2 ---
Progress Note - Dictate Date Seen: Jan 27, 2025 Has the PT tested + for MRSA If YES, has PT been informed?: No Medical Necessity Reason Pt with a Central, PICC or Fol: Yes The following are medically ne: Young Catheter Reason for young catheter: Strict I&O Subjective [facility] Patient seen and examined at bedside. Sedated, intubated on mechanical ventilator. Overnight events reviewed. vital signs Vital Sign Date Time Temp Pulse Resp B/P (MAP) Pulse Ox O2 Delivery O2 Flow Rate FiO2 01/27/25 23:00 67 20 124/46 (72) 95 01/27/25 22:18 30 01/27/25 22:00 Mechanical Ventilator+ 01/27/25 20:00 99.9 99.9 Total Intake and Output 01/26/25 01/26/25 01/27/25 15:00 23:00 07:00 Intake Total 417.44 ml 479.24 ml 498.74 ml Output Total 900 ml 450 ml Balance 417.44 ml -420.76 ml 48.74 ml medications Current Medications Medications Dose Ordered Sig/Natividad Route Start Time Stop Time Status Last Admin Dose Admin Propofol 100 ml @ 3.015 mls/ hr Q24H IV 01/19/25 11:15 01/27/25 07:38 6.03 MLS/HR Midazolam HCl 50 ml @ 1 mls/hr Q24H IV 01/19/25 11:15 01/27/25 20:57 12 MLS/HR Fentanyl Citrate 250 ml @ 2.5 mls/hr Q24H IV 01/19/25 11:15 01/27/25 06:42 25 MLS/HR Pantoprazole Sodium 40 mg BID IV 01/19/25 22:00 01/27/25 22:21 40 MG Thiamine HCl 100 mg DAILY IV 01/20/25 10:00 01/27/25 07:38 100 MG Folic Acid 1 mg/ Dextrose 50.2 ml @ 200.8 mls/ hr DAILY INJ 01/20/25 10:00 01/27/25 07:39 200.8 MLS/HR Polyethylene Glycol 17 gm DAILY PO 01/20/25 10:00 01/26/25 10:44 17 GM Dextrose 50 ml UD PRN IV 01/19/25 13:15 Diagnostic Test (Pha) 1 strip Q6HR 01/23/25 10:00 01/27/25 17:09 1 STRIP Insulin Human Lispro Q6HR SC 01/23/25 10:00 01/27/25 00:36 1 UNITS Amlodipine Besylate 5 mg DAILY PO 01/24/25 10:00 01/27/25 07:39 5 MG Metoclopramide HCl 5 mg Q8HR IV 01/23/25 16:30 01/27/25 22:21 5 MG Acetaminophen 650 mg Q6HP PRN PO 01/24/25 09:15 01/27/25 11:04 650 MG Carvedilol 3.125 mg Q12HR PO 01/24/25 10:00 01/27/25 22:22 3.125 MG Vancomycin HCl 0 ml @ 0 mls/hr UD IV 01/24/25 11:00 Meropenem 50 ml @ 17 mls/hr Q12HR IV 01/24/25 13:19 01/27/25 22:21 17 MLS/HR Sennosides 8.6 mg HS PO 01/24/25 22:00 01/25/25 22:09 8.6 MG Furosemide 60 mg BIDD IV 01/25/25 18:00 01/27/25 17:24 60 MG Lactulose 30 ml BID PO 01/25/25 22:00 01/27/25 22:21 30 ML Norepinephrine Bitartrate 250 ml @ 3.75 mls/hr Q24H IV 01/26/25 14:30 Enteral Nutritional Formula 1,000 ml 50ML/HR GT 01/26/25 17:00 Fluconazole 100 ml @ 100 mls/hr 1300,1400 IV 01/28/25 13:00 objective Gen.: Patient lying in bed in medical ICU. Sedated, intubated on mechanical ventilator. Head: Normocephalic, atraumatic. Eyes: PERRLA. Ears: Normal external anatomy. Throat: Endotracheal tube and orogastric tube in place. Neck: Supple, trachea midline. Chest: Transmitted breath sounds bilaterally. Decreased air entry bilaterally. No wheezing. Bibasilar crackles. Cardiovascular: Positive S1, positive S2. Regular rate and rhythm. Abdomen: Positive bowel sounds in all 4 quadrants. Soft, nontender, nondistended. : Young in place. Normal external genitalia. Rectal: Deferred. Skin: Warm, dry. Intact. Extremities: 2+ radial pulses bilaterally. No lower extremity edema. Neuro: Sedated laboratory and microbiology Laboratory Tests 01/27/25 03:08 Test 01/27/25 03:08 Range/Units Serum Glucose 144 H 74-106 mg/dL Assessment/Plan Impression: Acute hypoxic respiratory failure On mechanical ventilator Sepsis ESRD, on hemodialysis Obesity, BMI 34.7 Events: Remains on vent support Vent settings: AC mode; RR 20, VT 500, PEEP 5, FiO2 40-->30% Taper FiO2 as tolerated ABG reviewed, compensated. CXR shows cardiomegaly, small left pleural effusion and diffuse increased prominence of the pulmonary vasculature. Devices in place. Sedated on Versed, Fentanyl drip. CT head revealed no intracranial hemorrhage or stroke. Vascular Surgery recommendations appreciated. HD per Nephrology - S/p hemodialysis yesterday. Continue antibiotics Patient is afebrile Continue antifungal Blood pressure control Accu-Cheks, ISS. Plan for PICC line placement. Remove central line after PICC placement. Diurese with Lasix as tolerated HD per Nephrology Monitor renal function Monitor electrolytes. Supplement as necessary. Monitor ins and outs. Tube feeds for nutritional support CT abdomen-pelvis reviewed; Scattered fluid-filled small bowel loops; mild colonic diverticulosis; moderate retained stool in the colon. Moderate dependent consolidations in the bilateral lobes with air bronchograms likely atelectasis, though pneumonia (which can be on the basis of aspiration) is an additional consideration. Mild hepatosplenomegaly. Gastric tube terminates in the gastric fundus. S/p therapeutic bronchoscopy with RML BAL (01/23); cleared mucous plugging from L6-L10 and R1-R10. Sent for bacterial, fungal and viral cultures - follow up results. Limited chest ultrasound on 01/23 revealed compressive atelectasis. Consolidated lung. No pleural effusion noted. Please see separate procedure notes for details Labs and imaging reviewed. Rest of plan as noted below. Plan: s/p intubation on mechanical ventilator. Vent settings: AC mode; RR 20, VT 500, PEEP 5, FiO2 30% Titrate FIO2 to keep O2 saturation above 90%. VAP bundle. Daily ABG and CXR while intubated Sedated for vent synchrony Antibiotics. F/u cultures - Blood culture positive; bacteremia w/ Salmonella species. Repeat blood cultures show no growth Pressors as necessary for hemodynamic support. Titrate to keep MAP greater than 65 mmHg. S/p right radial thrombectomy by Vascular Surgery Monitor hemoglobin Accu-Cheks, ISS. HD per Nephrology Monitor renal function Monitor electrolytes. Supplement as necessary. Monitor ins and outs. Diet and lifestyle modifications for weight reduction Obesity - complicates all care GI/DVT prophylaxis. Prognosis: Poor given patient's multiple co-morbidities. Condition: Critical Rest of plan per hospitalist and other consultants. A total of 35 minutes of critical care time was spent reviewing the patient record, examining the patient, making a diagnostic and therapeutic plan, discussing this plan with the medical personnel, following up on diagnostic studies and following the patient for clinical stability excluding any and all procedures. At least 50% of this time was spent in direct, [id number] contact. Thank you Dr. Dai for allowing me to participate in this patient's care. Further recommendations will depend on the patient's clinical course. Please do not hesitate to contact me if you have any questions or concerns. This medical document was created using an electronic medical record system with [employer] dictation system. Although these documentations are being carefully reviewed, there may still be some phonetic and typographical changes. The errors are purely typographical, due to imperfection on the software program, and do not reflect any compromise in the patient's medical care. Dietary Evaluation Review Comments: 1) Initiate Nephro-Haritha @ 1 tb qd 2) If patient remains NPO > 7 days, consider EN/TPN to meet at least 75% of estimated daily needs 3) If GI route is preferred, consider Nepro CarbSteady @ 30 mL/hr goal rate as tolerated. EN regimen will provide 1296 kcals. 58g Pro, and 523 mL free H2O per 24 hrs. Goal rate will meet ~ 92% estimated daily energy needs and ~ 43% estimated daily protein needs. 4) Advance to 60g CCHO renal diet when medically feasible, pending ST approal 5) Refer to outpatient RD/CDCES for weight management 6) Follow-up with cardiology, pulmonology, nephrology, gastroenterology, and hepatology 7) Follow-up with pediatric social worker r/t polysubstance abuse 8) Continue to monitor I&O, labs, and skin integrity Expected Outcomes/Goals: 1) patient to receive nutrition support within 7 days of NPO status 2) labs and GI symptoms to improve 3) diet to advance 4) f/u in 2-3 days Plan discussed with: Other (DENISSE Rae) Critical Care Time(min): 35 TIM GE MD Jan 27, 2025 23:47
[2025-01-28] VITALS (105 sets, daily range): BP systolic 93–151; BP diastolic 44–83; PULSE 63–97; RESP 11–28; TEMP 99.5–101.5; O2SAT 96–100
[2025-01-28 03:50] LABS: Hematocrit 36.8 % (41.0-53.0); Hemoglobin 12.1 g/dL (13.5-17.5); Mean Corpuscular Hemoglobin 28.7 pg (28.0-32.0); Mean Corpuscular Volume 87.1 fL (80.0-100.0); Nucleated Red Blood Cells % 0.4 %
[2025-01-28 04:12] LABS: Alanine Aminotransferase 40 U/L (7-40); Anion Gap 9 (5-15); BUN/Creatinine Ratio 48.9 (10.0-20.0); Bilirubin, Total 0.9 mg/dL (0.2-1.0); Calcium 8.7 mg/dL (8.7-10.4); Carbon Dioxide 31 mmol/L (20-31); Potassium 3.7 mmol/L (3.5-5.1)
[2025-01-28 04:13] LABS: Albumin 3.1 g/dL (3.2-4.8); Alkaline Phosphatase 298 U/L (46-116); Blood Urea Nitrogen 67 mg/dL (9-23); Chloride 110 mmol/L (98-107); Glucose 142 mg/dL (74-106); Sodium 150 mmol/L (136-145); Total Protein 5.6 g/dL (5.7-8.2)
--- NOTE | 2025-01-28 05:45 | DVH ---
CHEST RADIOGRAPH Indication: Pneumonia Technique: Single frontal view of the chest was obtained Comparison: XY CHEST XRAY 1 VIEW on DOS: 01/27/25, XY CHEST XRAY 1 VIEW on DOS: 01/26/25, XY CHEST XRAY 1 VIEW on DOS: 01/25/25, XY CHEST PORTABLE on DOS: 01/24/25, XY CHEST XRAY 1 VIEW on DOS: 01/24/25 FINDINGS: Lines and Tubes: Unchanged endotracheal tube, enteric tube, left and tunneled right IJ catheters. Lungs: Similar mild [id number]-left interstitial prominence and left basilar airspace disease . Pleura: Small pleural effusions. No pneumothorax. Cardiomediastinal contours: Unchanged. Bones: Unchanged. IMPRESSION: 1. No significant change from the previous study. Stable support devices.
--- NOTE | 2025-01-28 06:12 | DVHPN2 ---
Subjective Intubated and sedated Reviewed: Care Plan, H&P, Labs, Medications, Previous Orders, Radiology, Other (Consultations) Changes from previous H/P or p: No Changes Objective Vitals Vital Signs Date Time Temp Pulse Resp B/P (MAP) Pulse Ox O2 Delivery O2 Flow Rate FiO2 01/28/25 05:34 133/69 01/28/25 04:31 68 20 98 30 01/28/25 04:03 100.9 01/28/25 00:00 Mechanical Ventilator+ Intake/Output Intake and Output 01/28/25 07:00 Intake Total 1361.15 ml Output Total 850 ml Balance 511.15 ml Intake Oral 150 ml IV Total 1151.15 ml Tube Feeding 60 ml Output Urine Total 850 ml # Bowel Movements 2 General Appearance: Other (Intubated and sedated) HEENT: Atraumatic, Other (Intubated) Neck: Other (Central lines at both sides) Lungs: Other (Mechanical ventilation sounds) Cardiovascular: Regular rate, Normal S1, Normal S2 Abdomen: Normal bowel sounds, Soft Genitourinary: Other (Bates's catheter in place) Extremities: Other (Right hand with dusky color; slightly warm) Neuro: Other (Sedated) Skin: Other (Refer to nursing documentation for details) Psych/Mental Status: Other (Sedated) Medications Current Medications Medications Dose Ordered Sig/Natividad Route Start Time Stop Time Status Last Admin Dose Admin Propofol 100 ml @ 3.015 mls/ hr Q24H IV 01/19/25 11:15 01/28/25 05:11 6.03 MLS/HR Midazolam HCl 50 ml @ 1 mls/hr Q24H IV 01/19/25 11:15 01/28/25 05:30 12 MLS/HR Fentanyl Citrate 250 ml @ 2.5 mls/hr Q24H IV 01/19/25 11:15 01/28/25 01:47 25 MLS/HR Pantoprazole Sodium 40 mg BID IV 01/19/25 22:00 01/27/25 22:21 40 MG Thiamine HCl 100 mg DAILY IV 01/20/25 10:00 01/27/25 07:38 100 MG Folic Acid 1 mg/ Dextrose 50.2 ml @ 200.8 mls/ hr DAILY INJ 01/20/25 10:00 01/27/25 07:39 200.8 MLS/HR Polyethylene Glycol 17 gm DAILY PO 7/25/25 10:00 01/26/25 10:44 17 GM Dextrose 50 ml UD PRN IV 01/19/25 13:15 Diagnostic Test (Pha) 1 strip Q6HR 01/23/25 10:00 01/28/25 05:34 1 STRIP Insulin Human Lispro Q6HR SC 01/23/25 10:00 01/28/25 05:44 1 UNITS Amlodipine Besylate 5 mg DAILY PO 01/24/25 10:00 01/27/25 07:39 5 MG Metoclopramide HCl 5 mg Q8HR IV 01/23/25 16:30 01/28/25 05:34 5 MG Acetaminophen 650 mg Q6HP PRN PO 01/24/25 09:15 01/28/25 03:03 650 MG Carvedilol 3.125 mg Q12HR PO 01/24/25 10:00 01/27/25 22:22 3.125 MG Vancomycin HCl 0 ml @ 0 mls/hr UD IV 01/24/25 11:00 Meropenem 50 ml @ 17 mls/hr Q12HR IV 01/24/25 13:19 01/27/25 22:21 17 MLS/HR Sennosides 8.6 mg HS PO 01/24/25 22:00 01/25/25 22:09 8.6 MG Furosemide 60 mg BIDD IV 01/25/25 18:00 01/28/25 05:34 60 MG Lactulose 30 ml BID PO 01/25/25 22:00 01/27/25 22:21 30 ML Norepinephrine Bitartrate 250 ml @ 3.75 mls/hr Q24H IV 01/26/25 14:30 Enteral Nutritional Formula 1,000 ml 50ML/HR GT 01/26/25 17:00 Fluconazole 100 ml @ 100 mls/hr 1300,1400 IV 01/28/25 13:00 Laboratory Results Laboratory Tests 01/28/25 03:05 Chemistry Test 01/28/25 03:05 Albumin 3.1 g/dL (3.2-4.8) L Calcium Level 8.7 mg/dL (8.7-10.4) Total Protein 5.6 g/dL (5.7-8.2) L LFT Test 01/28/25 03:05 Alanine Aminotransferase (ALT) 40 U/L (7-40) Alkaline Phosphatase 298 U/L (46-116) H Aspartate Amino Transferase (AST) 51 U/L (13-40) H Total Bilirubin 0.9 mg/dL (0.2-1.0) Urinalysis Test 01/18/25 06:08 Urine Color Yellow (Yellow) Urine Clarity Turbid (Clear) H Urine pH 6.0 (5.0-9.0) Urine Specific [place] 1.017 (1.001-1.035) Urine Protein 2+ (Negative) H Urine Ketones Negative (Negative) Urine Blood 2+ /uL (Negative) H Urine Nitrite Negative (Negative) Urine Bilirubin 1+ (Negative) Urine Urobilinogen 3 mg/dL (Negative) H Urine Leukocyte Esterase Negative /uL (Negative) Urine RBC 3 /hpf (0 - 3) Urine Microscopic WBC 4 /HPF (0-3) H Urine Squamous Epithelial Cells None seen /hpf (<5) Urine Bacteria None seen /hpf (None Seen) Urine Sperm Present /hpf (None Seen) Urine Glucose Normal mg/dL (Normal) Blood Gas Results Test 01/27/25 07:25 Arterial Blood pH 7.437 (7.350-7.450) FiO2 % 30.0 Microbiology Microbiology Date/Time Source Procedure Growth Status 01/23/25 20:14 Lung Pending Resulted 01/23/25 20:14 Lung Pending Resulted 01/23/25 20:14 Lung Pending Resulted 01/23/25 20:14 Lung Pending Resulted 01/23/25 20:14 Lung - Final See Separate Report... Resulted 01/23/25 20:14 Bronchial Washings Gram Stain - Final Complete 01/23/25 20:14 Respiratory Culture - Final Presumptive Lelo albicans Complete 01/23/25 13:10 Blood Blood Culture - Preliminary NO GROWTH AFTER 72 HOURS OF INCUBATION. Resulted 01/18/25 06:08 Voided Urine Urine Culture - Final Complete Labs and/or images reviewed: Labs reviewed by me, Image(s) reviewed by me Assessment/Plan Assessment/Plan Covering: # Acute hypoxic/metabolic/toxic encephalopathy in the setting of shock and severe alcohol use disorder # Cardiogenic shock, likely due to AFib with RVR/SVT # Atrial fibrillation with RVR/SVT # Acute on chronic heart failure with reduced ejection fraction # NSTEMI, likely type 2 OR, demand ischemia due to above # Sinus bradycardia # Acute hypoxic respiratory failure; multifactorial # Pneumonia; multifactorial # Questionable pulmonary hypertension # Possible obstructive sleep apnea # Atelectasis # Possible upper GI bleeding, likely due to alcoholic liver cirrhosis/portal hypertension # Severe alcohol use disorder # Hepatomegaly and hepatic steatosis; multifactorial # Splenomegaly; multifactorial # Bilateral indirect inguinal hernia; content extending to the scrotum # Diverticulosis # JOES on possible CKD, likely VMN (baseline record not available); needing hemodialysis # Newly diagnosed Diabetes, with hyperglycemia # Hypokalemia # Hypocalcemia # Severe thrombocytopenia due to alcohol liver cirrhosis status post transfusion of total of 1 unit of FFP and 1 unit of platelet during this admission # Severe anemia, normocytic normochromic; status post transfusion of total of 1 unit of packed RBCs during this admission # Septic shock due to multifactorial pneumonia and Salmonella bacteremia # Acute right hand PAD/acute limb ischemia possibly due to arterial thrombosis, leading to possible right hand fingertip necrosis s/p right radial artery exploration with subsequent performed thrombectomy of the proximal radial artery by vascular surgeon # Chronic back pain, due to severe lumbar disc disease # Dyslipidemia # Thyroid nodule # Obesity # Gout Continue oxygen therapy via mechanical ventilation as indicated Reviewed lab work and imaging studies including ABGs, chest x-rays and head CT Reviewed available cultures results Continue broad-spectrum IV antibiotics and IV antifungal Continue sedation protocol for mechanical ventilation as indicated Continue hemodialysis as per Nephrology Reviewed the progress note of consultations services Replace and correct electrolytes as indicated Avoid anticoagulation due to thrombocytopenia and possible upper GI bleed Continue IV vasopressors as indicated SCDs for DVT prophylaxis in the setting of thrombocytopenia Continue GI prophylaxis with IV pantoprazole Avoid hepatotoxic and nephrotoxic agents Continue close monitoring Goals of care discussed with the patient's son for 20 minutes; full code 66 minutes of critical care time Late Entry. This medical document was created using an electronic medical record system with computerized dictation system. Although this document has been carefully reviewed, there might still be some phonetic and typographical errors. These areas are purely typographical due to imperfections of the software programs, and do not reflect any compromise in the patient's medical care. Plan discussed with: Son, Other (Nurse) Date of Service: Jan 28, 2025 Billing Provider: MILES ANGEL MD Common Visit Codes: 47216-[id number] CARE 30-74 MIN (66 minutes) MILES ANGEL MD Jan 28, 2025 06:12
[2025-01-28 07:06] LABS: Base Excess 0.7 mmol/L (-2.0-3.0)
--- NOTE | 2025-01-28 11:28 | DVHPN2 ---
Progress Note - Dictate Date Seen: Jan 28, 2025 Has the PT tested + for MRSA If YES, has PT been informed?: No Medical Necessity Reason Pt with a Central, PICC or Fol: Yes The following are medically ne: Central Line (Left non tunneled IJ and tunneled right subclavian), Young Catheter Reason for young catheter: Strict I&O Subjective No GI bleeding; liver enzymes trending downward. * Enteral feeds advanced to 50 mL/hr, tolerated. * multiple bowel movements have been recorded * No intraabdominal abscess or new GI pathology on CT. * WBC rise likely due to IV steroids; low-grade fever Mechanical ventilation with FiO2 30%, peep 5, tidal volume 500, respiratory rate 28. Blood culture showed salmonella bacteremia. vital signs Vital Sign Date Time Temp Pulse Resp B/P (MAP) Pulse Ox O2 Delivery O2 Flow Rate FiO2 01/28/25 10:44 127/83 01/28/25 10:43 76 01/28/25 09:03 20 98 30 01/28/25 08:00 Mechanical Ventilator+ 01/28/25 04:03 100.9 Total Intake and Output 01/27/25 01/27/25 01/28/25 15:00 23:00 07:00 Intake Total 636.00 ml 871.24 ml 617.24 ml Output Total 850 ml 1250 ml Balance 636.00 ml 21.24 ml -632.76 ml medications Current Medications Medications Dose Ordered Sig/Natividad Route Start Time Stop Time Status Last Admin Dose Admin Propofol 100 ml @ 3.015 mls/ hr Q24H IV 01/19/25 11:15 01/28/25 05:11 6.03 MLS/HR Midazolam HCl 50 ml @ 1 mls/hr Q24H IV 01/19/25 11:15 01/28/25 11:03 12 MLS/HR Fentanyl Citrate 250 ml @ 2.5 mls/hr Q24H IV 01/19/25 11:15 01/28/25 10:59 25 MLS/HR Pantoprazole Sodium 40 mg BID IV 01/19/25 22:00 01/28/25 10:42 40 MG Thiamine HCl 100 mg DAILY IV 01/20/25 10:00 01/28/25 10:41 100 MG Folic Acid 1 mg/ Dextrose 50.2 ml @ 200.8 mls/ hr DAILY INJ 01/20/25 10:00 01/28/25 10:42 200.8 MLS/HR Polyethylene Glycol 17 gm DAILY PO 01/20/25 10:00 01/28/25 10:44 17 GM Dextrose 50 ml UD PRN IV 01/19/25 13:15 Diagnostic Test (Pha) 1 strip Q6HR 01/23/25 10:00 01/28/25 05:34 1 STRIP Insulin Human Lispro Q6HR SC 01/23/25 10:00 01/28/25 05:44 1 UNITS Amlodipine Besylate 5 mg DAILY PO 01/24/25 10:00 01/28/25 10:44 5 MG Metoclopramide HCl 5 mg Q8HR IV 01/23/25 16:30 01/28/25 05:34 5 MG Acetaminophen 650 mg Q6HP PRN PO 01/24/25 09:15 01/28/25 03:03 650 MG Carvedilol 3.125 mg Q12HR PO 01/24/25 10:00 01/28/25 10:43 3.125 MG Vancomycin HCl 0 ml @ 0 mls/hr UD IV 01/24/25 11:00 Meropenem 50 ml @ 17 mls/hr Q12HR IV 01/24/25 13:19 01/28/25 10:42 17 MLS/HR Sennosides 8.6 mg HS PO 01/24/25 22:00 01/25/25 22:09 8.6 MG Furosemide 60 mg BIDD IV 01/25/25 18:00 01/28/25 05:34 60 MG Lactulose 30 ml BID PO 01/25/25 22:00 01/28/25 10:43 30 ML Norepinephrine Bitartrate 250 ml @ 3.75 mls/hr Q24H IV 01/26/25 14:30 Enteral Nutritional Formula 1,000 ml 50ML/HR GT 01/26/25 17:00 Fluconazole 100 ml @ 100 mls/hr 1300,1400 IV 01/28/25 13:00 objective General: Intubated sedated afebrile, mucosae are moist Cardiovascular: Normal S1 and S2, distant heart sound Respiratory: Mechanically assisted ventilation, Clear lung sounds on auscultation Abdomen: Soft, nontender, no organomegaly, normal bowel sounds laboratory and microbiology Laboratory Tests 01/28/25 03:05 Test 01/28/25 03:05 Range/Units Serum Glucose 142 H 74-106 mg/dL Problems(with codes): (1) UGIB (upper gastrointestinal bleed) (2) Sepsis, unspecified organism (3) Elevated liver enzymes (4) SVT (supraventricular tachycardia) (5) Acute tubular necrosis (6) CHF (congestive heart failure) Prognosis Assessment 1. Upper GI bleeding resolved/stable * No new bleeding; NG aspirate clear; H/H stable. 2. Alcoholic cirrhosis with portal hypertension * MELD remains high; LFTs improving; continue monitoring. 3. Critical illness with gastroparesis improving with prokinetic therapy. 4. Constipation lactulose and MiraLax as needed 5. Sepsis with WBC spike on antibiotics; respiratory culture positive for Lelo (likely colonization vs. infection). 6. Enteral feeding well tolerated at 50 mL/hr. Plan GI System Gastrointestinal / Nutrition * Continue enteral feeding (Nepro) at 50 mL/hr; monitor residuals q4h. * Maintain IV Protonix 40 mg BID for stress ulcer and variceal prophylaxis. * Continue IV Reglan 5 mg q8h to improve gastric motility. * Continue bowel regimen (Miralax + Senna) as needed * Maintain aspiration precautions (HOB >30). Hepatic * Daily LFTs, INR, ammonia. * Avoid hepatotoxic drugs; monitor for encephalopathy. Infection Control (GI Context) * Continue Meropenem and Vancomycin and Fluconazole Dietary Evaluation Review Comments: 1) Initiate Nephro-Haritha @ 1 tb qd 2) If patient remains NPO > 7 days, consider EN/TPN to meet at least 75% of estimated daily needs 3) If GI route is preferred, consider Nepro CarbSteady @ 30 mL/hr goal rate as tolerated. EN regimen will provide 1296 kcals. 58g Pro, and 523 mL free H2O per 24 hrs. Goal rate will meet ~ 92% estimated daily energy needs and ~ 43% estimated daily protein needs. 4) Advance to 60g CCHO renal diet when medically feasible, pending ST approal 5) Refer to outpatient RD/CDCES for weight management 6) Follow-up with cardiology, pulmonology, nephrology, gastroenterology, and hepatology 7) Follow-up with social media executive r/t polysubstance abuse 8) Continue to monitor I&O, labs, and skin integrity Expected Outcomes/Goals: 1) patient to receive nutrition support within 7 days of NPO status 2) labs and GI symptoms to improve 3) diet to advance 4) f/u in 2-3 days Plan discussed with: Other (Dr Hurley) PALMIRA OCHOA MD Jan 28, 2025 11:28
[2025-01-28] MEDS: FLUCONAZOLE 200MG/100ML 100 ML IV SCH (13:49)
[2025-01-28] MEDS: VANCOMYCIN 1GM/200ML PM 200 ML IV ONE (13:49)
[2025-01-28] MEDS: LIDOCAINE 1% (LOCAL ANESTH.) PF 5ml SDV ID ONE (15:00)
--- NOTE | 2025-01-28 15:34 | DVHPN2 ---
Progress Note - Dictate Date Seen: Jan 28, 2025 Has the PT tested + for MRSA If YES, has PT been informed?: No Medical Necessity Reason Pt with a Central, PICC or Fol: Yes The following are medically ne: Central Line (Left non tunneled IJ and tunneled right subclavian), Young Catheter Reason for young catheter: Strict I&O Subjective No significant events overnight vital signs Vital Sign Date Time Temp Pulse Resp B/P (MAP) Pulse Ox O2 Delivery O2 Flow Rate FiO2 01/28/25 13:30 70 20 124/68 (86) 98 30 01/28/25 12:00 Mechanical Ventilator+ 01/28/25 04:03 100.9 Total Intake and Output 01/27/25 01/27/25 01/28/25 15:00 23:00 07:00 Intake Total 636.00 ml 871.24 ml 617.24 ml Output Total 850 ml 1250 ml Balance 636.00 ml 21.24 ml -632.76 ml medications Current Medications Medications Dose Ordered Sig/Natividad Route Start Time Stop Time Status Last Admin Dose Admin Propofol 100 ml @ 3.015 mls/ hr Q24H IV 01/19/25 11:15 01/28/25 05:11 6.03 MLS/HR Midazolam HCl 50 ml @ 1 mls/hr Q24H IV 01/19/25 11:15 01/28/25 13:49 12 MLS/HR Fentanyl Citrate 250 ml @ 2.5 mls/hr Q24H IV 01/19/25 11:15 01/28/25 10:59 25 MLS/HR Pantoprazole Sodium 40 mg BID IV 01/19/25 22:00 01/28/25 10:42 40 MG Thiamine HCl 100 mg DAILY IV 01/20/25 10:00 01/28/25 10:41 100 MG Folic Acid 1 mg/ Dextrose 50.2 ml @ 200.8 mls/ hr DAILY INJ 01/20/25 10:00 01/28/25 10:42 200.8 MLS/HR Polyethylene Glycol 17 gm DAILY PO 01/20/25 10:00 01/28/25 10:44 17 GM Dextrose 50 ml UD PRN IV 01/19/25 13:15 Diagnostic Test (Pha) 1 strip Q6HR 01/23/25 10:00 01/28/25 12:00 1 STRIP Insulin Human Lispro Q6HR SC 01/23/25 10:00 01/28/25 05:44 1 UNITS Amlodipine Besylate 5 mg DAILY PO 01/24/25 10:00 01/28/25 10:44 5 MG Metoclopramide HCl 5 mg Q8HR IV 01/23/25 16:30 01/28/25 14:14 5 MG Acetaminophen 650 mg Q6HP PRN PO 01/24/25 09:15 01/28/25 03:03 650 MG Carvedilol 3.125 mg Q12HR PO 01/24/25 10:00 01/28/25 10:43 3.125 MG Vancomycin HCl 0 ml @ 0 mls/hr UD IV 01/24/25 11:00 Meropenem 50 ml @ 17 mls/hr Q12HR IV 01/24/25 13:19 01/28/25 10:42 17 MLS/HR Sennosides 8.6 mg HS PO 01/24/25 22:00 01/25/25 22:09 8.6 MG Furosemide 60 mg BIDD IV 01/25/25 18:00 01/28/25 05:34 60 MG Lactulose 30 ml BID PO 01/25/25 22:00 01/28/25 10:43 30 ML Norepinephrine Bitartrate 250 ml @ 3.75 mls/hr Q24H IV 01/26/25 14:30 Enteral Nutritional Formula 1,000 ml 50ML/HR GT 01/26/25 17:00 Fluconazole 100 ml @ 100 mls/hr 1300,1400 IV 01/28/25 13:00 01/28/25 14:00 100 MLS/HR Sodium Chloride 10 ml QSHIFT@10,22 IV 01/28/25 22:00 objective Gen: Intubated heent: nc/at, mmm lungs: cta anteriorly cvs: no rub abd: soft, bowel sounds audible ext: No edema laboratory and microbiology Laboratory Tests 01/28/25 03:05 Test 01/28/25 03:05 Range/Units Serum Glucose 142 H 74-106 mg/dL Assessment/Plan 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 Bilateral inguinal hernias extending into the scrotum Severe lumbar disc disease Congestive heart failure Thrombocytopenia - free water enterally - kidney function improving Dietary Evaluation Review Comments: 1) Initiate Nephro-Haritha @ 1 tb qd 2) If patient remains NPO > 7 days, consider EN/TPN to meet at least 75% of estimated daily needs 3) If GI route is preferred, consider Nepro CarbSteady @ 30 mL/hr goal rate as tolerated. EN regimen will provide 1296 kcals. 58g Pro, and 523 mL free H2O per 24 hrs. Goal rate will meet ~ 92% estimated daily energy needs and ~ 43% estimated daily protein needs. 4) Advance to 60g CCHO renal diet when medically feasible, pending ST approal 5) Refer to outpatient RD/CDCES for weight management 6) Follow-up with cardiology, pulmonology, nephrology, gastroenterology, and hepatology 7) Follow-up with director social r/t polysubstance abuse 8) Continue to monitor I&O, labs, and skin integrity Expected Outcomes/Goals: 1) patient to receive nutrition support within 7 days of NPO status 2) labs and GI symptoms to improve 3) diet to advance 4) f/u in 2-3 days Plan discussed with: MARK Hamilton MD Jan 28, 2025 15:34
[2025-01-28] MEDS: SODIUM CHLOR 0.9% PF (SALINE LOCK) 10ML VIAL/SYR IV SCH (20:42)
--- NOTE | 2025-01-28 23:52 | DVHPN2 ---
Progress Note - Dictate Date Seen: Jan 28, 2025 Has the PT tested + for MRSA If YES, has PT been informed?: No Medical Necessity Reason Pt with a Central, PICC or Fol: Yes The following are medically ne: Central Line (Left non tunneled IJ and tunneled right subclavian), Young Catheter Reason for young catheter: Strict I&O Subjective [facility] Patient seen and examined at bedside. Sedated, intubated on mechanical ventilator. Overnight events reviewed. vital signs Vital Sign Date Time Temp Pulse Resp B/P (MAP) Pulse Ox O2 Delivery O2 Flow Rate FiO2 01/28/25 23:00 99.9 64 20 115/63 (80) 99 99.9 01/28/25 22:09 30 01/28/25 22:00 Mechanical Ventilator+ Total Intake and Output 01/27/25 01/27/25 01/28/25 15:00 23:00 07:00 Intake Total 636.00 ml 871.24 ml 617.24 ml Output Total 850 ml 1250 ml Balance 636.00 ml 21.24 ml -632.76 ml medications Current Medications Medications Dose Ordered Sig/Natividad Route Start Time Stop Time Status Last Admin Dose Admin Propofol 100 ml @ 3.015 mls/ hr Q24H IV 01/19/25 11:15 01/28/25 20:46 6.03 MLS/HR Midazolam HCl 50 ml @ 1 mls/hr Q24H IV 01/19/25 11:15 01/28/25 22:16 12 MLS/HR Fentanyl Citrate 250 ml @ 2.5 mls/hr Q24H IV 01/19/25 11:15 01/28/25 20:44 25 MLS/HR Pantoprazole Sodium 40 mg BID IV 01/19/25 22:00 01/28/25 20:42 40 MG Thiamine HCl 100 mg DAILY IV 01/20/25 10:00 01/28/25 10:41 100 MG Folic Acid 1 mg/ Dextrose 50.2 ml @ 200.8 mls/ hr DAILY INJ 01/20/25 10:00 01/28/25 10:42 200.8 MLS/HR Polyethylene Glycol 17 gm DAILY PO 01/20/25 10:00 01/28/25 10:44 17 GM Dextrose 50 ml UD PRN IV 01/19/25 13:15 Diagnostic Test (Pha) 1 strip Q6HR 01/23/25 10:00 01/28/25 18:00 1 STRIP Insulin Human Lispro Q6HR SC 01/23/25 10:00 01/28/25 05:44 1 UNITS Amlodipine Besylate 5 mg DAILY PO 01/24/25 10:00 01/28/25 10:44 5 MG Metoclopramide HCl 5 mg Q8HR IV 01/23/25 16:30 01/28/25 20:42 5 MG Acetaminophen 650 mg Q6HP PRN PO 01/24/25 09:15 01/28/25 20:43 650 MG Carvedilol 3.125 mg Q12HR PO 01/24/25 10:00 01/28/25 20:43 3.125 MG Vancomycin HCl 0 ml @ 0 mls/hr UD IV 01/24/25 11:00 Meropenem 50 ml @ 17 mls/hr Q12HR IV 01/24/25 13:19 01/28/25 22:13 17 MLS/HR Sennosides 8.6 mg HS PO 01/24/25 22:00 01/28/25 20:43 8.6 MG Lactulose 30 ml BID PO 01/25/25 22:00 01/28/25 20:42 30 ML Norepinephrine Bitartrate 250 ml @ 3.75 mls/hr Q24H IV 01/26/25 14:30 Enteral Nutritional Formula 1,000 ml 50ML/HR GT 01/26/25 17:00 Fluconazole 100 ml @ 100 mls/hr 1300,1400 IV 01/28/25 13:00 01/28/25 14:00 100 MLS/HR Sodium Chloride 10 ml QSHIFT@10,22 IV 01/28/25 22:00 01/28/25 20:42 10 ML objective Gen.: Patient lying in bed in medical ICU. Sedated, intubated on mechanical ventilator. Head: Normocephalic, atraumatic. Eyes: PERRLA. Ears: Normal external anatomy. Throat: Endotracheal tube and orogastric tube in place. Neck: Supple, trachea midline. Chest: Transmitted breath sounds bilaterally. Decreased air entry bilaterally. No wheezing. Bibasilar crackles. Cardiovascular: Positive S1, positive S2. Regular rate and rhythm. Abdomen: Positive bowel sounds in all 4 quadrants. Soft, nontender, nondistended. : Young in place. Normal external genitalia. Rectal: Deferred. Skin: Warm, dry. Intact. Extremities: 2+ radial pulses bilaterally. No lower extremity edema. Neuro: Sedated laboratory and microbiology Laboratory Tests 01/28/25 03:05 Test 01/28/25 03:05 Range/Units Serum Glucose 142 H 74-106 mg/dL Assessment/Plan Impression: Acute hypoxic respiratory failure On mechanical ventilator Sepsis ESRD, on hemodialysis Obesity, BMI 34.7 Events: Remains on vent support Vent settings: AC mode; RR 20, VT 500, PEEP 5, FiO2 30% Taper FiO2 as tolerated ABG reviewed, compensated. CXR shows persistent wccia-kzxtbud-cewt-left interstitial prominence and left basilar airspace disease. Small pleural effusions Sedated on Versed, Propofol, Fentanyl drip. Vascular Surgery recommendations appreciated. Possible plan for digit amputation by Vascular Surgery on Thursday (01/30/25) S/p PICC line placement. Remove central line. HD per Nephrology Continue antibiotics Patient is afebrile Continue antifungal Blood pressure control Accu-Cheks, ISS. Diurese with Lasix as tolerated HD per Nephrology Monitor renal function Monitor electrolytes. Supplement as necessary. Monitor ins and outs. Tube feeds for nutritional support CT abdomen-pelvis reviewed; Scattered fluid-filled small bowel loops; mild colonic diverticulosis; moderate retained stool in the colon. Moderate dependent consolidations in the bilateral lobes with air bronchograms likely atelectasis, though pneumonia (which can be on the basis of aspiration) is an additional consideration. Mild hepatosplenomegaly. Gastric tube terminates in the gastric fundus. S/p therapeutic bronchoscopy with RML BAL (01/23); cleared mucous plugging from L6-L10 and R1-R10. Sent for bacterial, fungal and viral cultures - follow up results. Limited chest ultrasound on 01/23 revealed compressive atelectasis. Consolidated lung. No pleural effusion noted. Please see separate procedure notes for details Labs and imaging reviewed. Rest of plan as noted below. Plan: s/p intubation on mechanical ventilator. Vent settings: AC mode; RR 20, VT 500, PEEP 5, FiO2 30% Titrate FIO2 to keep O2 saturation above 90%. VAP bundle. Daily ABG and CXR while intubated Sedated for vent synchrony Antibiotics. F/u cultures - Blood culture positive; bacteremia w/ Salmonella species. Repeat blood cultures show no growth Pressors as necessary for hemodynamic support. Titrate to keep MAP greater than 65 mmHg. S/p right radial thrombectomy by Vascular Surgery Possible plan for digit amputation by Vascular Surgery on Thursday (01/30/25) Monitor hemoglobin Accu-Cheks, ISS. HD per Nephrology Monitor renal function Monitor electrolytes. Supplement as necessary. Monitor ins and outs. Wound care Diet and lifestyle modifications for weight reduction Obesity - complicates all care GI/DVT prophylaxis. Prognosis: Poor given patient's multiple co-morbidities. Condition: Critical Rest of plan per hospitalist and other consultants. A total of 35 minutes of critical care time was spent reviewing the patient record, examining the patient, making a diagnostic and therapeutic plan, discussing this plan with the medical personnel, following up on diagnostic studies and following the patient for clinical stability excluding any and all procedures. At least 50% of this time was spent in direct, niey-hy-utyn contact. Thank you Dr. Dai for allowing me to participate in this patient's care. Further recommendations will depend on the patient's clinical course. Please do not hesitate to contact me if you have any questions or concerns. This medical document was created using an electronic medical record system with [employer] computerized dictation system. Although these documentations are being carefully reviewed, there may still be some phonetic and typographical changes. The errors are purely typographical, due to imperfection on the software program, and do not reflect any compromise in the patient's medical care. Dietary Evaluation Review Comments: 1) Initiate Nephro-Haritha @ 1 tb qd 2) If patient remains NPO > 7 days, consider EN/TPN to meet at least 75% of estimated daily needs 3) If GI route is preferred, consider Nepro CarbSteady @ 30 mL/hr goal rate as tolerated. EN regimen will provide 1296 kcals. 58g Pro, and 523 mL free H2O per 24 hrs. Goal rate will meet ~ 92% estimated daily energy needs and ~ 43% estimated daily protein needs. 4) Advance to 60g CCHO renal diet when medically feasible, pending ST approal 5) Refer to outpatient RD/CDCES for weight management 6) Follow-up with cardiology, pulmonology, nephrology, gastroenterology, and hepatology 7) Follow-up with child welfare social worker r/t polysubstance abuse 8) Continue to monitor I&O, labs, and skin integrity Expected Outcomes/Goals: 1) patient to receive nutrition support within 7 days of NPO status 2) labs and GI symptoms to improve 3) diet to advance 4) f/u in 2-3 days Plan discussed with: Other (DENISSE Schneider) Critical Care Time(min): 35 TIM GE MD Jan 28, 2025 23:52
[2025-01-29] VITALS (107 sets, daily range): BP systolic 99–143; BP diastolic 50–72; PULSE 63–124; RESP 16–27; TEMP 99.3–100.8; O2SAT 93–100
[2025-01-29 04:10] LABS: Hematocrit 34.8 % (41.0-53.0); Hemoglobin 11.6 g/dL (13.5-17.5); Mean Corpuscular Hemoglobin 29.1 pg (28.0-32.0); Mean Corpuscular Volume 87.3 fL (80.0-100.0); Nucleated Red Blood Cells % 0.4 %
[2025-01-29 04:20] LABS: Alanine Aminotransferase 35 U/L (7-40); Anion Gap 12 (5-15); BUN/Creatinine Ratio 53.1 (10.0-20.0); Carbon Dioxide 28 mmol/L (20-31); Potassium 3.7 mmol/L (3.5-5.1)
[2025-01-29 04:21] LABS: Bilirubin, Total 0.7 mg/dL (0.2-1.0)
[2025-01-29 04:54] LABS: Albumin 3.0 g/dL (3.2-4.8); Alkaline Phosphatase 250 U/L (46-116); Blood Urea Nitrogen 60 mg/dL (9-23); Calcium 8.4 mg/dL (8.7-10.4); Chloride 112 mmol/L (98-107); Glucose 150 mg/dL (74-106); Sodium 152 mmol/L (136-145); Total Protein 5.4 g/dL (5.7-8.2)
--- NOTE | 2025-01-29 05:53 | DVH ---
CHEST RADIOGRAPH Indication: ogt confirmation Technique: 1 view Comparison: XY CHEST XRAY 1 VIEW on DOS: 01/28/25, XY CHEST XRAY 1 VIEW on DOS: 01/27/25, XY CHEST XRAY 1 VIEW on DOS: 01/26/25, XY CHEST XRAY 1 VIEW on DOS: 01/25/25, XY CHEST PORTABLE on DOS: 01/24/25 FINDINGS: Lines and Tubes: Unchanged endotracheal tube, enteric tube, and tunneled right IJ catheter. Lungs: Persistent bqkee-yxxvfco-ikpd-left interstitial prominence and left basilar airspace disease. Pleura: Small pleural effusions. Cardiomediastinal contours: Unchanged. Bones: Unchanged. IMPRESSION: 1. No significant change from the previous study.
--- NOTE | 2025-01-29 06:58 | DVH ---
Exam: US US GUIDED VASCULAR ACCESS Clinical History: PICC Placement Comparison: XY INSERTION OF VENOUS CATH on DOS: 01/25/25, US RT UPPER EXT ART DUPLEX on DOS: 01/21/25 Findings: Targeted sonographic evaluation of the arm vein was obtained utilizing grayscale and color Doppler im aging. IMPRESSION: Sonographic assistance for peripherally inserted central line placement. Please refer to procedural r eport for detailed findings.
[2025-01-29 07:24] LABS: Base Excess 1.4 mmol/L (-2.0-3.0)
--- NOTE | 2025-01-29 09:37 | DVH ---
CHEST RADIOGRAPH Indication: Pneumonia Technique: Single frontal view of the chest was obtained COMPARISON: XY CHEST PORTABLE on DOS: 01/29/25, XY CHEST XRAY 1 VIEW on DOS: 01/28/25, XY CHEST XRAY 1 EW on DOS: 01/27/25, XY CHEST XRAY 1 VIEW on DOS: 01/26/25, XY CHEST XRAY 1 VIEW on DOS: 01/25/25 FINDINGS: Lines and Tubes: Endotracheal tube, enteric catheter and right central venous catheter in satisfactor y position. Lungs: Congestion Pleura: No effusion. No pneumothorax. Cardiomediastinal contours: Cardiomegaly Bones: Unremarkable IMPRESSION: Lines and tubes in satisfactory position. No significant interval change.
--- NOTE | 2025-01-29 11:14 | DVHPN2 ---
Progress Note - Dictate Date Seen: Jan 29, 2025 Has the PT tested + for MRSA If YES, has PT been informed?: No Medical Necessity Reason Pt with a Central, PICC or Fol: Yes The following are medically ne: Central Line (Left non tunneled IJ and tunneled right subclavian), Young Catheter Reason for young catheter: Strict I&O Subjective Urine volumes remain nonoliguric vital signs Vital Sign Date Time Temp Pulse Resp B/P (MAP) Pulse Ox O2 Delivery O2 Flow Rate FiO2 01/29/25 10:06 130/65 01/29/25 10:00 68 21 96 30 01/29/25 06:49 100.8 01/29/25 06:00 Mechanical Ventilator+ Total Intake and Output 01/28/25 01/28/25 01/29/25 15:00 23:00 07:00 Intake Total 744.24 ml 544.24 ml 411.21 ml Output Total 1550 ml 1000 ml Balance 744.24 ml -1005.76 ml -588.79 ml medications Current Medications Medications Dose Ordered Sig/Natividad Route Start Time Stop Time Status Last Admin Dose Admin Propofol 100 ml @ 3.015 mls/ hr Q24H IV 01/19/25 11:15 01/29/25 05:33 6.03 MLS/HR Midazolam HCl 50 ml @ 1 mls/hr Q24H IV 01/19/25 11:15 01/29/25 10:01 12 MLS/HR Fentanyl Citrate 250 ml @ 2.5 mls/hr Q24H IV 01/19/25 11:15 01/29/25 05:34 25 MLS/HR Pantoprazole Sodium 40 mg BID IV 01/19/25 22:00 01/29/25 09:59 40 MG Thiamine HCl 100 mg DAILY IV 01/20/25 10:00 01/29/25 10:35 100 MG Folic Acid 1 mg/ Dextrose 50.2 ml @ 200.8 mls/ hr DAILY INJ 01/20/25 10:00 01/29/25 10:38 200.8 MLS/HR Polyethylene Glycol 17 gm DAILY PO 01/20/25 10:00 01/29/25 09:59 17 GM Dextrose 50 ml UD PRN IV 01/19/25 13:15 Diagnostic Test (Pha) 1 strip Q6HR 01/23/25 10:00 01/29/25 05:33 1 STRIP Insulin Human Lispro Q6HR SC 01/23/25 10:00 01/28/25 05:44 1 UNITS Amlodipine Besylate 5 mg DAILY PO 01/24/25 10:00 01/29/25 10:06 5 MG Metoclopramide HCl 5 mg Q8HR IV 01/23/25 16:30 01/29/25 05:32 5 MG Acetaminophen 650 mg Q6HP PRN PO 01/24/25 09:15 01/29/25 05:49 650 MG Carvedilol 3.125 mg Q12HR PO 01/24/25 10:00 01/29/25 10:00 3.125 MG Vancomycin HCl 0 ml @ 0 mls/hr UD IV 01/24/25 11:00 Meropenem 50 ml @ 17 mls/hr Q12HR IV 01/24/25 13:19 01/29/25 13:00 01/29/25 10:29 17 MLS/HR Sennosides 8.6 mg HS PO 01/24/25 22:00 01/28/25 20:43 8.6 MG Lactulose 30 ml BID PO 01/25/25 22:00 01/29/25 09:58 30 ML Norepinephrine Bitartrate 250 ml @ 3.75 mls/hr Q24H IV 01/26/25 14:30 Enteral Nutritional Formula 1,000 ml 50ML/HR GT 01/26/25 17:00 Fluconazole 100 ml @ 100 mls/hr 1300,1400 IV 01/28/25 13:00 01/28/25 14:00 100 MLS/HR Sodium Chloride 10 ml QSHIFT@10,22 IV 01/28/25 22:00 01/29/25 10:01 10 ML Meropenem 50 ml @ 17 mls/hr Q8H IV 01/29/25 18:00 Vancomycin HCl 200 ml @ 200 mls/hr DAILY@1200 IV 01/29/25 12:00 objective Gen: Intubated heent: nc/at, mmm lungs: cta anteriorly cvs: no rub abd: soft, bowel sounds audible ext: No edema laboratory and microbiology Laboratory Tests 01/29/25 03:10 Test 01/29/25 03:10 Range/Units Serum Glucose 150 H 74-106 mg/dL Assessment/Plan 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 Bilateral inguinal hernias extending into the scrotum Severe lumbar disc disease Congestive heart failure Thrombocytopenia Hypernatremia - to initiate free water today - we will continue to monitor Dietary Evaluation Review Comments: 1) Initiate Nephro-Haritha @ 1 tb qd 2) If patient remains NPO > 7 days, consider EN/TPN to meet at least 75% of estimated daily needs 3) If GI route is preferred, consider Nepro CarbSteady @ 30 mL/hr goal rate as tolerated. EN regimen will provide 1296 kcals. 58g Pro, and 523 mL free H2O per 24 hrs. Goal rate will meet ~ 92% estimated daily energy needs and ~ 43% estimated daily protein needs. 4) Advance to 60g CCHO renal diet when medically feasible, pending ST approal 5) Refer to outpatient RD/CDCES for weight management 6) Follow-up with cardiology, pulmonology, nephrology, gastroenterology, and hepatology 7) Follow-up with social services technician r/t polysubstance abuse 8) Continue to monitor I&O, labs, and skin integrity Expected Outcomes/Goals: 1) patient to receive nutrition support within 7 days of NPO status 2) labs and GI symptoms to improve 3) diet to advance 4) f/u in 2-3 days Plan discussed with: MARK Hamilton MD Jan 29, 2025 11:14
[2025-01-29] MEDS: VANCOMYCIN 1GM/200ML PM 200 ML IV SCH (11:55)
--- NOTE | 2025-01-29 15:01 | DVHPNRES ---
Progress Note Date Seen: Jan 29, 2025 Resident Creating Document: SONA HEARD VANESSA Has the PT tested + for MRSA If YES, has PT been informed?: No Medical Necessity Reason Pt with a Central, PICC or Fol: Yes The following are medically ne: Central Line (Left non tunneled IJ and tunneled right subclavian), Young Catheter Reason for young catheter: Strict I&O Subjective Review of Systems Patient seen and examined at the bedside. Patient is sedated and on mechanical ventilation Objective vital signs Vital Sign Date Time Temp Pulse Resp B/P (MAP) Pulse Ox O2 Delivery O2 Flow Rate FiO2 01/29/25 13:33 65 20 115/60 (78) 97 30 01/29/25 12:00 Mechanical Ventilator+ 01/29/25 06:49 100.8 Total Intake and Output 01/28/25 01/28/25 01/29/25 15:00 23:00 07:00 Intake Total 744.24 ml 544.24 ml 411.21 ml Output Total 1550 ml 1000 ml Balance 744.24 ml -1005.76 ml -588.79 ml medications Current Medications Medications Dose Ordered Sig/Natividad Route Start Time Stop Time Status Last Admin Dose Admin Propofol 100 ml @ 3.015 mls/ hr Q24H IV 01/19/25 11:15 01/29/25 05:33 6.03 MLS/HR Midazolam HCl 50 ml @ 1 mls/hr Q24H IV 01/19/25 11:15 01/29/25 13:32 12 MLS/HR Fentanyl Citrate 250 ml @ 2.5 mls/hr Q24H IV 01/19/25 11:15 01/29/25 05:34 25 MLS/HR Pantoprazole Sodium 40 mg BID IV 01/19/25 22:00 01/29/25 09:59 40 MG Thiamine HCl 100 mg DAILY IV 01/20/25 10:00 01/29/25 10:35 100 MG Folic Acid 1 mg/ Dextrose 50.2 ml @ 200.8 mls/ hr DAILY INJ 01/20/25 10:00 01/29/25 10:38 200.8 MLS/HR Polyethylene Glycol 17 gm DAILY PO 01/20/25 10:00 01/29/25 09:59 17 GM Dextrose 50 ml UD PRN IV 01/19/25 13:15 Diagnostic Test (Pha) 1 strip Q6HR 01/23/25 10:00 01/29/25 11:18 1 STRIP Insulin Human Lispro Q6HR SC 01/23/25 10:00 01/29/25 11:29 1 UNITS Amlodipine Besylate 5 mg DAILY PO 01/24/25 10:00 01/29/25 10:06 5 MG Metoclopramide HCl 5 mg Q8HR IV 01/23/25 16:30 01/29/25 05:32 5 MG Acetaminophen 650 mg Q6HP PRN PO 01/24/25 09:15 01/29/25 05:49 650 MG Carvedilol 3.125 mg Q12HR PO 01/24/25 10:00 01/29/25 10:00 3.125 MG Vancomycin HCl 0 ml @ 0 mls/hr UD IV 01/24/25 11:00 Sennosides 8.6 mg HS PO 01/24/25 22:00 01/28/25 20:43 8.6 MG Lactulose 30 ml BID PO 01/25/25 22:00 01/29/25 09:58 30 ML Norepinephrine Bitartrate 250 ml @ 3.75 mls/hr Q24H IV 01/26/25 14:30 Enteral Nutritional Formula 1,000 ml 50ML/HR GT 01/26/25 17:00 Fluconazole 100 ml @ 100 mls/hr 1300,1400 IV 01/28/25 13:00 01/29/25 12:48 100 MLS/HR Sodium Chloride 10 ml QSHIFT@10,22 IV 01/28/25 22:00 01/29/25 10:01 10 ML Meropenem 50 ml @ 17 mls/hr Q8H IV 01/29/25 18:00 Vancomycin HCl 200 ml @ 200 mls/hr DAILY@1200 IV 01/29/25 12:00 01/29/25 11:55 200 MLS/HR Examination General: RASS -4, afebrile, mucosae are moist Cardiovascular: Normal S1 and S2. No murmurs, gallops or rubs Respiratory: Mechanically assisted ventilation, equal bilateral airway entree. Clear lung sounds on auscultation Abdomen: Soft, nontender, no organomegaly, normal bowel sounds MSK/skin: Right hand fingers are blue (involve more distal phalanx) and warm, status post right arterial artery exploration, underwent thrombectomy of right radial artery. Neurological: Orientation cannot be assessed. No apparent motor no sensitive deficits. Pupils are isocoric and reactive laboratory and microbiology Laboratory Tests 01/29/25 03:10 Test 01/29/25 03:10 Range/Units Serum Glucose 150 H 74-106 mg/dL Microbiology Date/Time Source Procedure Growth Status 01/27/25 19:45 Sputum Gram Stain - Final Resulted 01/27/25 19:45 Sputum Respiratory Culture - Preliminary Resulted 01/27/25 18:30 Urine - Young Port Urine Culture - Preliminary Resulted 01/27/25 14:15 Blood Blood Culture - Preliminary NO GROWTH AFTER 24 HOURS OF INCUBATION. Resulted 01/23/25 20:14 Lung Pending Resulted 01/23/25 20:14 Lung Pending Resulted 01/23/25 20:14 Lung Pending Resulted 01/23/25 20:14 Lung Pending Resulted 01/23/25 20:14 Lung - Final See Separate Report... Resulted Labs and/or images reviewed: Labs reviewed by me, Image(s) reviewed by me Problem List/Assessment/Plan Problem List/Assessment/Plan This is a 60-year-old male with past medical history of alcohol use disorder, current heavy smoker, gout, dyslipidemia, came to the hospital due to low back pain. On 2nd day of admission, the patient is stabilized, developed AFib and SVT, underwent cardioversion and adenosine was given subsequently, due to respiratory distress and inability to maintain respiratory tract, the patient was sedated, intubated and put on mechanical ventilation. NEURO: Acute metabolic/toxic encephalopathy likely due to sepsis/alcohol use disorder * Sedated, on MV with RASS score -4 * Head CT scan CARDIOVASCULAR: Cardiogenic shock, likely due to AFib with RVR/SVT Atrial fibrillation with RVR/SVT Acquired coagulopathy Acute on chronic Heart failure with reduced ejection fraction NSTEMI, likely type 2 due to above Sinus bradycardia ? Endocarditis * Patient was 2 times reverted to NSR with cardioversion, subsequently put on amiodarone drip for 2 days, discontinued due to regaining sinus rhythm and bradycardia * EKG upon admission showed sinus rhythm with no significant ST or T-wave changes * Subsequent EKGs showed AFib with RVR and SVT * Today, EKGs shows sinus bradycardia with no significant ST or T-wave changes * Echo shows, LVEF 45% severe pulmonary hypertension (RVSP 64) * BNP is raised at 450s * Cardiology is on the board, planned for CLAUDE for 01/27/2025 PULMONARY: Acute hypoxic respiratory failure, likely due to pneumonia Pneumonia, likely due to Gram-positive/Gram-negative bacteria/viral ? Pulmonary hypertension Possible obstructive sleep apnea Atelectasis * CT scan shows, bilateral small pleural effusion * Chest x-ray shows, closed left costophrenic angle * Bronchoscopy performed on 01/16/2024, had copious amount of mucus on bilateral main bronchus, sample sent for culture * Pulmonology is on the board GASTROINTESTINAL: ? Upper GI bleeding, likely due to liver cirrhosis/portal hypertension Alcohol use disorder Hepatomegaly and hepatic steatosis, likely due to alcohol use disorder Splenomegaly, likely due to above Bilateral indirect inguinal hernia, fatigue content extending to the scrotum Diverticulosis * GI is on the board, recommended medical management at the moment * Thiamine and folic acid GENITOURINARY: JOSE on possible CKD, likely VMN (baseline record not available) * Nephrology on the board, performed 4 session of HD, last session on 01/26/2025 * Lasix 40 mg b.i.d. * Consulted IR for tunneled catheter ENDOCRINE: Newly diagnosed Diabetes, with hyperglycemia Dyslipidemia Thyroid nodule Obesity * HBA1c is 6.5 * Lispro subcutaneous q.6 hours METABOLIC: Gout Hypokalemia Hypocalcemia * Mild hypernatremia HEME: Severe thrombocytopenia, likely due to liver cirrhosis Mild anemia, normocytic normochromic * Status post transfusion of 1 unit RBC, 1 units FFP, and 1 unit platelet INFECTIOUS DISEASE: Septic shock likely due to pneumonia/bacteremia Recurrent spikes of fever * Blood culture shows Gram-negative right, Salmonella sensitive to ampicillin * Sputum culture shows E coli, sensitive to ampicillin * Vancomycin and cefepime was given for 5 days, DC on 01/15/2025 * Ampicillin IV started on 01/15/2025, due to episodes of fever, ampicillin discontinued on 01/24/2025 * Over 01/16/24, the patient had multiple episodes of fever, patient is started back on vancomycin and meropenem on 01/24/2025 and blood culture sent * Acetaminophen p.r.n. for fever * Sputum culture shows, presumptive Lelo albicans, Fluconazole IV DERMATOLOGY: Right hand acute PAD/acute limb ischemia possibly due to arterial thrombosis, leading to possible right hand fingertip necrosis * Doppler ultrasound shows no significant arterial disease * Amlodipine 5 mg daily and local and sublingual nitroglycerin * Vascular surgeon consulted, performed right radial artery exploration with subsequent performed thrombectomy of the proximal radial artery MUSCULOSKELETAL: * Chronic back pain, due to severe lumbar disc disease DIET: Nepro 30 mL/hr DVT prophylax: Due to severe thrombocytopenia, no anticoagulant is indicated, SCDs GI prophylaxis: Protonix 40 mg b.i.d. Bowel regimen: MiraLax 17 g p.o. daily, glycerine suppository Code status: Code status discussed with the family (son), full code LINES/DRAINS/ACCESS: * ETT: Intubated on 01/19/2025 * Right subclavian tunneled catheter, placed on 01/25/2025 * Drips: Fentanyl, Versed and propofol, and norepinephrine * Young catheter: DISPOSITION: ICU status Patient's status discussed with patient's son, sister, and [id number] at the bedside. Critical care time spent of 55 minutes, including patient care, chart review, and updating the family; excluding any procedures. Case discussed with Dr. Angel Plan discussed with: Daughter, Son, Other (RN; patient's sister) My Orders My Orders Orders - SONA HEARD RESDIVIRI Procedure Category Date Status Time Us Guided Vascular US 01/28/25 Resulted Access 14:55 Nursing Protocol Picc [facility] 01/28/25 In Process 14:55 Change Dressing Prn [facility] 01/28/25 In Process 14:55 Sodium Chloride Lock [facility] 01/28/25 In Process (Saline Lock Ns) 22:00 Do Not Use Picc For [facility] 01/28/25 In Process Blood Cult 14:55 May Draw Blood From [facility] 01/28/25 In Process Picc 14:55 Ok To Use Picc [facility] 01/28/25 In Process 14:55 Change Picc Dressing [facility] 01/28/25 In Process Q7 Days 14:55 Chest Xray 1 View XY 01/29/25 Resulted 07:15 Meropenem 1gm Ivpb PHA 01/29/25 In Process (Merrem 1gm/ Ns) 18:00 Vancomycin 1gm/200ml PHA 01/29/25 In Process Pm 12:00 Vancomycin,Trough LAB 01/30/25 Verified 11:00 Vancomycin Per [facility] 01/30/25 In Process Pharmacy Protoc 12:00 Creatinine LAB 01/30/25 Verified 11:00 Respiratory Culture [facility]ERE 01/29/25 In Process W/ Gs 11:35 * Infectious [place]- CONS 01/29/25 Transmitted [facility] 11:41 Dietary Evaluation Review Comments: 1) Initiate Nephro-Haritha @ 1 tb qd 2) If patient remains NPO > 7 days, consider EN/TPN to meet at least 75% of estimated daily needs 3) If GI route is preferred, consider Nepro CarbSteady @ 30 mL/hr goal rate as tolerated. EN regimen will provide 1296 kcals. 58g Pro, and 523 mL free H2O per 24 hrs. Goal rate will meet ~ 92% estimated daily energy needs and ~ 43% estimated daily protein needs. 4) Advance to 60g CCHO renal diet when medically feasible, pending ST approal 5) Refer to outpatient RD/CDCES for weight management 6) Follow-up with cardiology, pulmonology, nephrology, gastroenterology, and hepatology 7) Follow-up with social service agency director r/t polysubstance abuse 8) Continue to monitor I&O, labs, and skin integrity Expected Outcomes/Goals: 1) patient to receive nutrition support within 7 days of NPO status 2) labs and GI symptoms to improve 3) diet to advance 4) f/u in 2-3 days Addendum Addendum Addendum I was physically present for the hurtado portions of the service provided to patient by THE RESIDENT. I have reviewed the documentation, discussed the case with resident and agree with the resident's documentation except as noted. Also the patient's clinical case was discussed with the patient's nurse. This medical document was created using an electronic medical record system with computerized dictation system. Although this document has been carefully reviewed, there might still be some phonetic and typographical errors. These areas are purely typographical due to imperfections of the software programs, and do not reflect any compromise in the patient's medical care. Late signature. Date of Service: Jan 29, 2025 Billing Provider: MILES ANGEL MD Common Visit Codes: [id number] CARE 30-74 MIN (55 minutes) SONA HEARD RESDIENT Jan 29, 2025 15:01 MIELS ANGEL MD Jan 30, 2025 04:48
[2025-01-29] MEDS: MEROPENEM 1GM IVPB 50 ML IV SCH (17:17)
--- NOTE | 2025-01-29 23:37 | DVHPN2 ---
Progress Note - Dictate Date Seen: Jan 29, 2025 Has the PT tested + for MRSA If YES, has PT been informed?: No Medical Necessity Reason Pt with a Central, PICC or Fol: Yes The following are medically ne: Central Line (Left non tunneled IJ and tunneled right subclavian), Young Catheter Reason for young catheter: Strict I&O Subjective [facility] Patient seen and examined at bedside. Sedated, intubated on mechanical ventilator. Overnight events reviewed. vital signs Vital Sign Date Time Temp Pulse Resp B/P (MAP) Pulse Ox O2 Delivery O2 Flow Rate FiO2 01/29/25 23:00 99.5 67 20 114/55 (74) 96 99.5 01/29/25 22:10 30 01/29/25 22:00 Mechanical Ventilator+ Total Intake and Output 01/28/25 01/28/25 01/29/25 15:00 23:00 07:00 Intake Total 744.24 ml 544.24 ml 479.24 ml Output Total 1550 ml 1000 ml Balance 744.24 ml -1005.76 ml -520.76 ml medications Current Medications Medications Dose Ordered Sig/Natividad Route Start Time Stop Time Status Last Admin Dose Admin Propofol 100 ml @ 3.015 mls/ hr Q24H IV 01/19/25 11:15 01/29/25 18:50 6.03 MLS/HR Midazolam HCl 50 ml @ 1 mls/hr Q24H IV 01/19/25 11:15 01/29/25 21:46 12 MLS/HR Fentanyl Citrate 250 ml @ 2.5 mls/hr Q24H IV 01/19/25 11:15 01/29/25 15:51 25 MLS/HR Pantoprazole Sodium 40 mg BID IV 01/19/25 22:00 01/29/25 21:46 40 MG Thiamine HCl 100 mg DAILY IV 01/20/25 10:00 01/29/25 10:35 100 MG Folic Acid 1 mg/ Dextrose 50.2 ml @ 200.8 mls/ hr DAILY INJ 01/20/25 10:00 01/29/25 10:38 200.8 MLS/HR Polyethylene Glycol 17 gm DAILY PO 01/20/25 10:00 01/29/25 09:59 17 GM Dextrose 50 ml UD PRN IV 01/19/25 13:15 Diagnostic Test (Pha) 1 strip Q6HR 01/23/25 10:00 01/29/25 17:44 1 STRIP Insulin Human Lispro Q6HR SC 01/23/25 10:00 01/29/25 11:29 1 UNITS Amlodipine Besylate 5 mg DAILY PO 01/24/25 10:00 01/29/25 10:06 5 MG Metoclopramide HCl 5 mg Q8HR IV 01/23/25 16:30 01/29/25 21:46 5 MG Acetaminophen 650 mg Q6HP PRN PO 01/24/25 09:15 01/29/25 05:49 650 MG Carvedilol 3.125 mg Q12HR PO 01/24/25 10:00 01/29/25 21:46 3.125 MG Vancomycin HCl 0 ml @ 0 mls/hr UD IV 01/24/25 11:00 Sennosides 8.6 mg HS PO 01/24/25 22:00 01/29/25 21:46 8.6 MG Lactulose 30 ml BID PO 01/25/25 22:00 01/29/25 21:46 30 ML Norepinephrine Bitartrate 250 ml @ 3.75 mls/hr Q24H IV 01/26/25 14:30 Enteral Nutritional Formula 1,000 ml 50ML/HR GT 01/26/25 17:00 Fluconazole 100 ml @ 100 mls/hr 1300,1400 IV 01/28/25 13:00 01/29/25 14:32 100 MLS/HR Sodium Chloride 10 ml QSHIFT@10,22 IV 01/28/25 22:00 01/29/25 21:46 10 ML Meropenem 50 ml @ 17 mls/hr Q8H IV 01/29/25 18:00 01/29/25 17:17 17 MLS/HR Vancomycin HCl 200 ml @ 200 mls/hr DAILY@1200 IV 01/29/25 12:00 01/29/25 11:55 200 MLS/HR objective Gen.: Patient lying in bed in medical ICU. Sedated, intubated on mechanical ventilator. Head: Normocephalic, atraumatic. Eyes: PERRLA. Ears: Normal external anatomy. Throat: Endotracheal tube and orogastric tube in place. Neck: Supple, trachea midline. Chest: Transmitted breath sounds bilaterally. Decreased air entry bilaterally. No wheezing. Bibasilar crackles. Cardiovascular: Positive S1, positive S2. Regular rate and rhythm. Abdomen: Positive bowel sounds in all 4 quadrants. Soft, nontender, nondistended. : Young in place. Normal external genitalia. Rectal: Deferred. Skin: Warm, dry. Intact. Extremities: 2+ radial pulses bilaterally. No lower extremity edema. Neuro: Sedated laboratory and microbiology Laboratory Tests 01/29/25 03:10 Test 01/29/25 03:10 Range/Units Serum Glucose 150 H 74-106 mg/dL Assessment/Plan Impression: Acute hypoxic respiratory failure On mechanical ventilator Sepsis ESRD, on hemodialysis Obesity, BMI 34.7 Events: Remains on vent support Vent settings: AC mode; RR 20, VT 500, PEEP 5, FiO2 30% Taper FiO2 as tolerated ABG reviewed, compensated. CXR shows pulmonary congestion. No significant change from prior. Sedated on Versed, Propofol, Fentanyl drip. S/p PICC line placement. HD per Nephrology Continue antibiotics Patient spiked fever this AM. Follow up Vascular Surgery recommendations Possible plan for digit amputation by Vascular Surgery on Thursday (01/30/25) Continue antifungal Blood pressure control HD per Nephrology Monitor renal function Monitor electrolytes. Supplement as necessary. Monitor ins and outs. Tube feeds for nutritional support CT abdomen-pelvis reviewed; Scattered fluid-filled small bowel loops; mild colonic diverticulosis; moderate retained stool in the colon. Moderate dependent consolidations in the bilateral lobes with air bronchograms likely atelectasis, though pneumonia (which can be on the basis of aspiration) is an additional consideration. Mild hepatosplenomegaly. Gastric tube terminates in the gastric fundus. S/p therapeutic bronchoscopy with RML BAL (01/23); cleared mucous plugging from L6-L10 and R1-R10. Sent for bacterial, fungal and viral cultures - follow up results. Limited chest ultrasound on 01/23 revealed compressive atelectasis. Consolidated lung. No pleural effusion noted. Please see separate procedure notes for details Labs and imaging reviewed. Rest of plan as noted below. Plan: s/p intubation on mechanical ventilator. Vent settings: AC mode; RR 20, VT 500, PEEP 5, FiO2 30% Titrate FIO2 to keep O2 saturation above 90%. VAP bundle. Daily ABG and CXR while intubated Sedated for vent synchrony Antibiotics. F/u cultures - Blood culture positive; bacteremia w/ Salmonella species. Repeat blood cultures show no growth Pressors as necessary for hemodynamic support. Titrate to keep MAP greater than 65 mmHg. S/p right radial thrombectomy by Vascular Surgery Possible plan for digit amputation by Vascular Surgery on Thursday (01/30/25) Monitor hemoglobin Accu-Cheks, ISS PRN. HD per Nephrology Monitor renal function Monitor electrolytes. Supplement as necessary. Monitor ins and outs. Maintain euvolemia Wound care Diet and lifestyle modifications for weight reduction Obesity - complicates all care GI/DVT prophylaxis. Prognosis: Poor given patient's multiple co-morbidities. Condition: Critical Rest of plan per hospitalist and other consultants. A total of 35 minutes of critical care time was spent reviewing the patient record, examining the patient, making a diagnostic and therapeutic plan, discussing this plan with the medical personnel, following up on diagnostic studies and following the patient for clinical stability excluding any and all procedures. At least 50% of this time was spent in direct, [id number] contact. Thank you Dr. Dai for allowing me to participate in this patient's care. Further recommendations will depend on the patient's clinical course. Please do not hesitate to contact me if you have any questions or concerns. This medical document was created using an electronic medical record system with castaclip computerized dictation system. Although these documentations are being carefully reviewed, there may still be some phonetic and typographical changes. The errors are purely typographical, due to imperfection on the software program, and do not reflect any compromise in the patient's medical care. Dietary Evaluation Review Comments: 1) Initiate Nephro-Haritha @ 1 tb qd 2) If patient remains NPO > 7 days, consider EN/TPN to meet at least 75% of estimated daily needs 3) If GI route is preferred, consider Nepro CarbSteady @ 30 mL/hr goal rate as tolerated. EN regimen will provide 1296 kcals. 58g Pro, and 523 mL free H2O per 24 hrs. Goal rate will meet ~ 92% estimated daily energy needs and ~ 43% estimated daily protein needs. 4) Advance to 60g CCHO renal diet when medically feasible, pending ST approal 5) Refer to outpatient RD/CDCES for weight management 6) Follow-up with cardiology, pulmonology, nephrology, gastroenterology, and hepatology 7) Follow-up with social worker delinquency prevention r/t polysubstance abuse 8) Continue to monitor I&O, labs, and skin integrity Expected Outcomes/Goals: 1) patient to receive nutrition support within 7 days of NPO status 2) labs and GI symptoms to improve 3) diet to advance 4) f/u in 2-3 days Plan discussed with: Other (DENISSE Peters) Critical Care Time(min): 35 TIM GE MD Jan 29, 2025 23:37
[2025-01-30] VITALS (109 sets, daily range): BP systolic 110–151; BP diastolic 33–77; PULSE 67–111; RESP 12–30; TEMP 99.3–101.5; O2SAT 94–100
[2025-01-30 04:03] LABS: Hematocrit 35.9 % (41.0-53.0); Hemoglobin 11.8 g/dL (13.5-17.5); Mean Corpuscular Hemoglobin 28.8 pg (28.0-32.0); Mean Corpuscular Volume 87.7 fL (80.0-100.0); Nucleated Red Blood Cells % 0.2 %
[2025-01-30 04:27] LABS: Alanine Aminotransferase 38 U/L (7-40); Anion Gap 12 (5-15); BUN/Creatinine Ratio 47.3 (10.0-20.0); Bilirubin, Total 0.5 mg/dL (0.2-1.0); Calcium 9.0 mg/dL (8.7-10.4); Carbon Dioxide 27 mmol/L (20-31); Potassium 3.9 mmol/L (3.5-5.1)
[2025-01-30 04:31] LABS: Albumin 3.1 g/dL (3.2-4.8); Alkaline Phosphatase 267 U/L (46-116); Blood Urea Nitrogen 52 mg/dL (9-23); Chloride 115 mmol/L (98-107); Glucose 174 mg/dL (74-106); Sodium 154 mmol/L (136-145); Total Protein 5.6 g/dL (5.7-8.2)
--- NOTE | 2025-01-30 04:45 | DVH ---
CHEST RADIOGRAPH Indication: pneumonia Technique: 1 view Comparison: XY CHEST XRAY 1 VIEW on DOS: 01/29/25, XY CHEST PORTABLE on DOS: 01/29/25, XY CHEST XRAY 1 EW on DOS: 01/28/25, XY CHEST XRAY 1 VIEW on DOS: 01/27/25, XY CHEST XRAY 1 VIEW on DOS: 01/26/25 FINDINGS: Lines and Tubes: Unchanged endotracheal tube, enteric tube, and tunneled right IJ catheter. Lungs: Increased left perihilar interstitial markings. No consolidation. Pleura: Small bilateral pleural effusions. Cardiomediastinal contours: Unchanged. Bones: Unchanged. IMPRESSION: 1. Interval worsening of left perihilar interstitial edema. No other significant change from the pre vious study.
[2025-01-30 06:47] LABS: Base Excess 1.3 mmol/L (-2.0-3.0)
[2025-01-30] MEDS: PANTOPRAZOLE 40 MG/10 ML VIAL INJ IV SCH (09:47)
--- NOTE | 2025-01-30 11:52 | DVHPN2 ---
Consult Progress Note Subjective Other Systems: The patient remains in normal sinus rhythm on sew on operator (with artifact, patient is shivering at time of assessment) Objective vital signs Vital Sign Date Time Temp Pulse Resp B/P (MAP) Pulse Ox O2 Delivery O2 Flow Rate FiO2 01/30/25 10:52 70 29 128/68 (88) 97 30 01/30/25 08:00 Mechanical Ventilator+ 01/30/25 06:28 100.6 Total Intake and Output 01/29/25 01/29/25 01/30/25 15:00 23:00 07:00 Intake Total 1257.41 ml 1144.24 ml 1321.21 ml Output Total 850 ml 1000 ml Balance 1257.41 ml 294.24 ml 321.21 ml medications Current Medications Medications Dose Ordered Sig/Natividad Route Start Time Stop Time Status Last Admin Dose Admin Midazolam HCl 50 ml @ 1 mls/hr Q24H IV 01/19/25 11:15 01/30/25 05:48 12 MLS/HR Fentanyl Citrate 250 ml @ 2.5 mls/hr Q24H IV 01/19/25 11:15 01/30/25 11:07 25 MLS/HR Thiamine HCl 100 mg DAILY IV 01/20/25 10:00 01/30/25 09:47 100 MG Folic Acid 1 mg/ Dextrose 50.2 ml @ 200.8 mls/ hr DAILY INJ 01/20/25 10:00 01/30/25 09:50 200.8 MLS/HR Dextrose 50 ml UD PRN IV 01/19/25 13:15 Diagnostic Test (Pha) 1 strip Q6HR 01/23/25 10:00 01/30/25 05:25 1 STRIP Insulin Human Lispro Q6HR SC 01/23/25 10:00 01/29/25 11:29 1 UNITS Amlodipine Besylate 5 mg DAILY PO 01/24/25 10:00 01/30/25 09:48 5 MG Metoclopramide HCl 5 mg Q8HR IV 01/23/25 16:30 01/30/25 05:25 5 MG Acetaminophen 650 mg Q6HP PRN PO 01/24/25 09:15 01/30/25 05:28 650 MG Carvedilol 3.125 mg Q12HR PO 01/24/25 10:00 01/30/25 09:48 3.125 MG Vancomycin HCl 0 ml @ 0 mls/hr UD IV 01/24/25 11:00 Norepinephrine Bitartrate 250 ml @ 3.75 mls/hr Q24H IV 01/26/25 14:30 Enteral Nutritional Formula 1,000 ml 50ML/HR GT 01/26/25 17:00 Sodium Chloride 10 ml QSHIFT@10,22 IV 01/28/25 22:00 01/30/25 09:48 10 ML Meropenem 50 ml @ 17 mls/hr Q8H IV 01/29/25 18:00 01/30/25 09:47 17 MLS/HR Lactulose 30 ml DAILY PRN PO 01/30/25 07:00 Pantoprazole Sodium 40 mg DAILY IV 01/30/25 10:00 01/30/25 09:47 40 MG Fluconazole 100 ml @ 100 mls/hr 10,11 IV 01/31/25 10:00 Examination: GENERAL:Abnormal, LUNGS:Abnormal (Mechanically ventilated), CVS:Normal, NEURO:Abnormal (Chemically sedated) laboratory and microbiology Laboratory Tests 01/30/25 03:03 Test 01/30/25 03:03 Range/Units Serum Glucose 174 H 74-106 mg/dL Problem List/Assessment/Plan Problem List/Assessment/Plan Atrial fibrillation with rapid ventricular response status post direct current cardioversion, now normal sinus rhythm Bacteremia, Ruled out infective endocarditis Acute hypoxic respiratory failure Acute on chronic HFmrEF, NYHA class IV, newly diagnosed Septic shock Severe thrombocytopenia, resolved Type 2 diabetes mellitus, newly diagnosed Pulmonary hypertension, severe degree Acute hypoxic respiratory failure secondary to pneumonia Alcohol use disorder Upper GI bleed Transaminitis Acute kidney injury, now on hemodialysis Liver cirrhosis Tobacco use History of methamphetamine use Morbid obesity Medical noncompliance Plan/Recommendations (Dr. Sloan): * Transthoracic echocardiogram reveals EF 45%, RVSP 64 mmHg * Slowly introduce guideline directed medical therapy for CHF as tolerated by BP. * Recommend to stop calcium channel diane as this is not GDMT guideline * [id number] VASc score: 2 points, HAS-BLED score: 3 points * Consider anticoagulation with stable H&H and platelet count * Beta-blockers for rate control * Antiarrhythmic agent stopped by primary care team due to bradycardia * Monitor and replete electrolytes as needed * Closely monitor hemoglobin and hematocrit, transfuse as needed * Close Cardiac surveillance Case discussed with . The patient continues to have necrotic fingers on right hand. A right upper extremity arterial duplex was ordered by primary care team which shows no significant stenosis. Given patient severely low platelet count, the patient would not be an ideal candidate for any invasive cardiac procedures. A vascular consultation was done and the patient was taken for a right radial artery exploration, thrombectomy, radial artery repair, radial and palmar arch arteriogram on 01/25/2025. 01/26/25: Primary team concerned about patient's recurrent fevers. Patient has bacteremia. personally reviewed echocardiogram (that was dictated by other silk screen printer), and there appears to be a possible mitral valve vegetation. Manning criteria for infective endocarditis: Possible. Given this information, the patient may benefit from a transesophageal echocardiogram. Plan discussed with the patient's sister Lali, who agrees for the patient to undergo procedure. We will plan for a transesophageal echocardiogram on 01/27/2025. Thank you for allowing us to care for this patient. Please call with any questions or concerns. 01/30/25: The patient underwent a transesophageal echocardiogram on 01/27/2025 which revealed an EF of 60% without pericardial effusion, masses, or vegetations. During follow up assessment today, the patient remains in a normal sinus rhythm with artifact on sew on operator. There is no further inpatient cardiac workup indicated at this time. Please reconsult if needed. Thank you for allowing us to care for this patient. Please call with any questions or concerns. Critical care time spent: 38 minutes. This medical document was created using an electronic medical record system with voice recognition software and computerized dictation system. Although this document has been carefully reviewed, there might still be some phonetic and typographical errors. Occasional wrong-word or ``sound-alike substitutions may have occurred due to the inherent limitations of voice recognition software. These areas are purely typographical due to imperfections of the software programs and do not reflect any compromise in the patient's medical care. Please read the chart carefully and recognize, using context, where these substitutions have occurred. Plan discussed with: Other (Bedside RN) Dietary Evaluation Review Comments: 1) Initiate Nephro-Haritha @ 1 tb qd 2) If patient remains NPO > 7 days, consider EN/TPN to meet at least 75% of estimated daily needs 3) If GI route is preferred, consider Nepro CarbSteady @ 30 mL/hr goal rate as tolerated. EN regimen will provide 1296 kcals. 58g Pro, and 523 mL free H2O per 24 hrs. Goal rate will meet ~ 92% estimated daily energy needs and ~ 43% estimated daily protein needs. 4) Advance to 60g CCHO renal diet when medically feasible, pending ST approal 5) Refer to outpatient RD/CDCES for weight management 6) Follow-up with cardiology, pulmonology, nephrology, gastroenterology, and hepatology 7) Follow-up with social studies teacher r/t polysubstance abuse 8) Continue to monitor I&O, labs, and skin integrity Expected Outcomes/Goals: 1) patient to receive nutrition support within 7 days of NPO status 2) labs and GI symptoms to improve 3) diet to advance 4) f/u in 2-3 days Date of Service: Jan 30, 2025 Billing Provider: JOHN PEARCE Common Visit Codes: [id number] CARE 30-74 MIN JOHN PEARCE Jan 30, 2025 11:51
--- NOTE | 2025-01-30 12:17 | DVHPN2 ---
Progress Note Date Seen: Jan 30, 2025 Has the PT tested + for MRSA If YES, has PT been informed?: No Medical Necessity Reason Pt with a Central, PICC or Fol: Yes The following are medically ne: Central Line (Left non tunneled IJ and tunneled right subclavian), Young Catheter Reason for young catheter: Strict I&O Objective vital signs Vital Sign Date Time Temp Pulse Resp B/P (MAP) Pulse Ox O2 Delivery O2 Flow Rate FiO2 01/30/25 10:52 70 29 128/68 (88) 97 30 01/30/25 08:00 Mechanical Ventilator+ 01/30/25 06:28 100.6 Total Intake and Output 01/29/25 01/29/25 01/30/25 15:00 23:00 07:00 Intake Total 1257.41 ml 1144.24 ml 1321.21 ml Output Total 850 ml 1000 ml Balance 1257.41 ml 294.24 ml 321.21 ml medications Current Medications Medications Dose Ordered Sig/Natividad Route Start Time Stop Time Status Last Admin Dose Admin Midazolam HCl 50 ml @ 1 mls/hr Q24H IV 01/19/25 11:15 01/30/25 11:42 10 MLS/HR Fentanyl Citrate 250 ml @ 2.5 mls/hr Q24H IV 01/19/25 11:15 01/30/25 11:07 25 MLS/HR Thiamine HCl 100 mg DAILY IV 01/20/25 10:00 01/30/25 09:47 100 MG Folic Acid 1 mg/ Dextrose 50.2 ml @ 200.8 mls/ hr DAILY INJ 01/20/25 10:00 01/30/25 09:50 200.8 MLS/HR Dextrose 50 ml UD PRN IV 01/19/25 13:15 Diagnostic Test (Pha) 1 strip Q6HR 01/23/25 10:00 01/30/25 05:25 1 STRIP Insulin Human Lispro Q6HR SC 01/23/25 10:00 01/29/25 11:29 1 UNITS Amlodipine Besylate 5 mg DAILY PO 01/24/25 10:00 01/30/25 09:48 5 MG Metoclopramide HCl 5 mg Q8HR IV 01/23/25 16:30 01/30/25 05:25 5 MG Carvedilol 3.125 mg Q12HR PO 01/24/25 10:00 84/25 09:48 3.125 MG Norepinephrine Bitartrate 250 ml @ 3.75 mls/hr Q24H IV 01/26/25 14:30 Enteral Nutritional Formula 1,000 ml 50ML/HR GT 01/26/25 17:00 Sodium Chloride 10 ml QSHIFT@10,22 IV 01/28/25 22:00 01/30/25 09:48 10 ML Meropenem 50 ml @ 17 mls/hr Q8H IV 01/29/25 18:00 01/30/25 09:47 17 MLS/HR Lactulose 30 ml DAILY PRN PO 01/30/25 07:00 Pantoprazole Sodium 40 mg DAILY IV 01/30/25 10:00 01/30/25 09:47 40 MG Fluconazole 100 ml @ 100 mls/hr 10,11 IV 01/31/25 10:00 Enoxaparin Sodium 90 mg Q12HR SC 01/30/25 22:00 UNV Examination: GENERAL:Abnormal, LUNGS:Abnormal, ABDOMEN:Abnormal, SKIN:Normal laboratory and microbiology Laboratory Tests 01/30/25 03:03 Test 01/30/25 03:03 Range/Units Serum Glucose 174 H 74-106 mg/dL Microbiology Date/Time Source Procedure Growth Status 01/27/25 19:45 Sputum Gram Stain - Final Resulted 01/27/25 19:45 Sputum Respiratory Culture - Preliminary Resulted 01/27/25 18:30 Urine - Young Port Urine Culture - Preliminary Resulted 01/27/25 14:15 Blood Blood Culture - Preliminary NO GROWTH AFTER 48 HOURS OF INCUBATION. Resulted 01/23/25 20:14 Lung - Final Resulted 01/23/25 20:14 Lung - Final Resulted 01/23/25 20:14 Lung Pending Resulted 01/23/25 20:14 Lung Pending Resulted 01/23/25 20:14 Lung - Final See Separate Report... Resulted Problem List/Assessment/Plan Problem List/Assessment/Plan 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 Bilateral inguinal hernias extending into the scrotum Severe lumbar disc disease Congestive heart failure Thrombocytopenia Hypernatremia Recommend increase free water Acute kidney injury has improved with medical therapy No indication for dialysis at this time Continue to monitor electrolytes Avoid hypotension Avoid NSAIDs Plan discussed with: Other Dietary Evaluation Review Comments: 1) Initiate Nephro-Haritha @ 1 tb qd 2) If patient remains NPO > 7 days, consider EN/TPN to meet at least 75% of estimated daily needs 3) If GI route is preferred, consider Nepro CarbSteady @ 30 mL/hr goal rate as tolerated. EN regimen will provide 1296 kcals. 58g Pro, and 523 mL free H2O per 24 hrs. Goal rate will meet ~ 92% estimated daily energy needs and ~ 43% estimated daily protein needs. 4) Advance to 60g CCHO renal diet when medically feasible, pending ST approal 5) Refer to outpatient RD/CDCES for weight management 6) Follow-up with cardiology, pulmonology, nephrology, gastroenterology, and hepatology 7) Follow-up with social contact worker r/t polysubstance abuse 8) Continue to monitor I&O, labs, and skin integrity Expected Outcomes/Goals: 1) patient to receive nutrition support within 7 days of NPO status 2) labs and GI symptoms to improve 3) diet to advance 4) f/u in 2-3 days Critical Care Time (mins): 33 JOSEPH HAM MD Jan 30, 2025 12:16
--- NOTE | 2025-01-30 12:48 | DVH ---
US BiLat Lower DVT HISTORY: to R/O DVT COMPARISON: US US GUIDED VASCULAR ACCESS on DOS: 01/28/25, XY INSERTION OF VENOUS CATH on DOS: 01/25/25, US RT UPPER EXT ART DUPLEX on DOS: 01/21/25 TECHNIQUE: Duplex doppler evaluation of the deep venous system of the lower extremity from the common femoral veins, superficial femoral vein, great saphenous vein, deep femoral vein, popliteal vein, an d calf veins, including color doppler and spectral/pulsed waveform analysis, was performed. FINDINGS: Right: - Common femoral vein: Compressible - Deep femoral vein: Compressible - Femoral vein: Compressible - Popliteal vein: Compressible - Posterior tibial vein: Waveforms present - Other: Nothing Left: - Common femoral vein: Compressible - Deep femoral vein: Compressible - Femoral vein: Compressible - Popliteal vein: Compressible - Posterior tibial vein: Waveforms present - Other: Nothing IMPRESSION: No right or left lower extremity deep venous thrombosis.
[2025-01-30] MEDS: ENOXAPARIN SOD 100 MG/1 ML SYRINGE SC ONE (12:53)
--- NOTE | 2025-01-30 13:50 | DVHPNRES ---
Progress Note Date Seen: Jan 30, 2025 Resident Creating Document: SONA HEARD VANESSA Has the PT tested + for MRSA If YES, has PT been informed?: No Medical Necessity Reason Pt with a Central, PICC or Fol: Yes The following are medically ne: Central Line (Left non tunneled IJ and tunneled right subclavian), Young Catheter Reason for young catheter: Strict I&O Subjective Review of Systems Patient seen and examined at bedside. Patient is intubated on mechanical ventilation. Patient is still has recurrent spikes of fever. Objective vital signs Vital Sign Date Time Temp Pulse Resp B/P (MAP) Pulse Ox O2 Delivery O2 Flow Rate FiO2 01/30/25 12:50 100 24 140/42 (74) 98 30 01/30/25 08:00 Mechanical Ventilator+ 01/30/25 06:28 100.6 Total Intake and Output 01/29/25 01/29/25 01/30/25 15:00 23:00 07:00 Intake Total 1257.41 ml 1144.24 ml 1321.21 ml Output Total 850 ml 1000 ml Balance 1257.41 ml 294.24 ml 321.21 ml medications Current Medications Medications Dose Ordered Sig/Natividad Route Start Time Stop Time Status Last Admin Dose Admin Midazolam HCl 50 ml @ 1 mls/hr Q24H IV 01/19/25 11:15 01/30/25 11:42 10 MLS/HR Fentanyl Citrate 250 ml @ 2.5 mls/hr Q24H IV 01/19/25 11:15 01/30/25 11:07 25 MLS/HR Thiamine HCl 100 mg DAILY IV 01/20/25 10:00 01/30/25 09:47 100 MG Folic Acid 1 mg/ Dextrose 50.2 ml @ 200.8 mls/ hr DAILY INJ 01/20/25 10:00 01/30/25 09:50 200.8 MLS/HR Dextrose 50 ml UD PRN IV 01/19/25 13:15 Diagnostic Test (Pha) 1 strip Q6HR 01/23/25 10:00 01/30/25 12:20 1 STRIP Insulin Human Lispro Q6HR SC 01/23/25 10:00 01/30/25 12:25 1 UNITS Amlodipine Besylate 5 mg DAILY PO 01/24/25 10:00 01/30/25 09:48 5 MG Metoclopramide HCl 5 mg Q8HR IV 01/23/25 16:30 01/30/25 05:25 5 MG Carvedilol 3.125 mg Q12HR PO 01/24/25 10:00 01/30/25 09:48 3.125 MG Norepinephrine Bitartrate 250 ml @ 3.75 mls/hr Q24H IV 01/26/25 14:30 Enteral Nutritional Formula 1,000 ml 50ML/HR GT 01/26/25 17:00 Sodium Chloride 10 ml QSHIFT@10,22 IV 01/28/25 22:00 01/30/25 09:48 10 ML Meropenem 50 ml @ 17 mls/hr Q8H IV 01/29/25 18:00 01/30/25 09:47 17 MLS/HR Lactulose 30 ml DAILY PRN PO 01/30/25 07:00 Pantoprazole Sodium 40 mg DAILY IV 01/30/25 10:00 01/30/25 09:47 40 MG Fluconazole 100 ml @ 100 mls/hr 10,11 IV 01/31/25 10:00 Enoxaparin Sodium 90 mg Q12HR SC 01/30/25 22:00 Examination General: RASS -4, afebrile, mucosae are moist Cardiovascular: Normal S1 and S2. No murmurs, gallops or rubs Respiratory: Mechanically assisted ventilation, equal bilateral airway entree. Clear lung sounds on auscultation Abdomen: Soft, nontender, no organomegaly, normal bowel sounds MSK/skin: Right hand fingers are blue (involve more distal phalanx) and warm, status post right arterial artery exploration, underwent thrombectomy of right radial artery. Neurological: Orientation cannot be assessed. No apparent motor no sensitive deficits. Pupils are isocoric and reactive laboratory and microbiology Laboratory Tests 01/30/25 03:03 Test 01/30/25 03:03 Range/Units Serum Glucose 174 H 74-106 mg/dL Microbiology Date/Time Source Procedure Growth Status 01/29/25 11:35 Sputum Gram Stain - Final Resulted 01/29/25 11:35 Sputum Respiratory Culture - Preliminary Resulted 01/27/25 18:30 Urine - Young Port Urine Culture - Final Complete 01/27/25 14:15 Blood Blood Culture - Preliminary NO GROWTH AFTER 48 HOURS OF INCUBATION. Resulted 01/23/25 20:14 Lung - Final Resulted 01/23/25 20:14 Lung - Final Resulted 01/23/25 20:14 Lung Pending Resulted 01/23/25 20:14 Lung Pending Resulted 01/23/25 20:14 Lung - Final See Separate Report... Resulted Labs and/or images reviewed: Labs reviewed by me, Image(s) reviewed by me Problem List/Assessment/Plan Problem List/Assessment/Plan This is a 60-year-old male with past medical history of alcohol use disorder, current heavy smoker, gout, dyslipidemia, came to the hospital due to low back pain. On 2nd day of admission, the patient is stabilized, developed AFib and SVT, underwent cardioversion and adenosine was given subsequently, due to respiratory distress and inability to maintain respiratory tract, the patient was sedated, intubated and put on mechanical ventilation. NEURO: Acute metabolic/toxic encephalopathy likely due to sepsis/alcohol use disorder * Sedated, on MV with RASS score -4 * Head CT scan showed no significant intracranial abnormalities CARDIOVASCULAR: ? Cardiogenic shock, likely due to AFib with RVR/SVT Atrial fibrillation with RVR/SVT Acquired coagulopathy ? Acute on chronic Heart failure with reduced ejection fraction NSTEMI, likely type 2 due to above Sinus bradycardia Ruled out Endocarditis * Patient was 2 times reverted to NSR with cardioversion, subsequently put on amiodarone drip for 2 days, discontinued due to regaining sinus rhythm and bradycardia * EKG upon admission showed sinus rhythm with no significant ST or T-wave changes * Subsequent EKGs showed AFib with RVR and SVT, and reverted to normal sinus rhythm by giving amiodarone drip for 2 days * Echo shows, LVEF 45% severe pulmonary hypertension (RVSP 64) * BNP is raised at 450s * CLAUDE on 01/27/2025, normal study PULMONARY: Acute hypoxic respiratory failure, likely due to pneumonia Pneumonia, likely due to Gram-positive/Gram-negative bacteria/viral ? Pulmonary hypertension Possible obstructive sleep apnea Atelectasis * CT scan shows, bilateral small pleural effusion * Chest x-ray shows, closed left costophrenic angle * Bronchoscopy performed on 01/16/2024, had copious amount of mucus on bilateral main bronchus, sample sent for culture * Pulmonology is on the board GASTROINTESTINAL: ? Upper GI bleeding, likely due to liver cirrhosis/portal hypertension Alcohol use disorder Hepatomegaly and hepatic steatosis, likely due to alcohol use disorder Splenomegaly, likely due to above Bilateral indirect inguinal hernia, fatigue content extending to the scrotum Diverticulosis * GI is on the board, recommended medical management at the moment * Thiamine and folic acid GENITOURINARY: JOSE on possible CKD, likely VMN (baseline record not available) * Nephrology on the board, performed 4 session of HD, last session on 01/26/2025, criteria normalized ENDOCRINE: Newly diagnosed Diabetes, with hyperglycemia Dyslipidemia Thyroid nodule Obesity * HBA1c is 6.5 * Lispro subcutaneous q.6 hours METABOLIC: Gout Hypokalemia Hypocalcemia * Mild hypernatremia HEME: Severe thrombocytopenia, likely due to liver cirrhosis, normalized Mild anemia, normocytic normochromic * Status post transfusion of 1 unit RBC, 1 units FFP, and 1 unit platelet INFECTIOUS DISEASE: ? Septic shock likely due to pneumonia/bacteremia Recurrent spikes of fever Possible drug fever * Blood culture shows Gram-negative right, Salmonella sensitive to ampicillin * Sputum culture shows E coli, sensitive to ampicillin * Vancomycin and cefepime was given for 5 days, DC on 01/15/2025 * Ampicillin IV started on 01/15/2025, due to episodes of fever, ampicillin discontinued on 01/24/2025 * Over 01/16/24, the patient had multiple episodes of fever, patient is started back on vancomycin and meropenem on 01/24/2025, stopped vancomycin on 01/30/25 (given for 6 days) for possible drug fever * Acetaminophen p.r.n. for fever * Sputum culture shows, presumptive Lelo albicans, Fluconazole IV started on 01/27/25 * Consulted infectious disease for fever of unknown origin DERMATOLOGY: Right hand acute PAD/acute limb ischemia possibly due to arterial thrombosis, leading to possible right hand fingertip necrosis * Doppler ultrasound shows no significant arterial disease * Vascular surgeon consulted, performed right radial artery exploration with subsequent performed thrombectomy of the proximal radial artery, due to necrosis of distal phalanges of right hand, planned for amputation MUSCULOSKELETAL: * Chronic back pain, due to severe lumbar disc disease DIET: Nepro 30 mL/hr DVT prophylax: Lovenox therapeutic dose started on 01/30/25 GI prophylaxis: Protonix 40 mg daily Bowel regimen: Lactulose 30 mg daily PRN Code status: Code status discussed with the family (son), full code LINES/DRAINS/ACCESS: * ETT: Intubated on 01/19/2025 * Right subclavian tunneled catheter, placed on 01/26/2020 * Drips: Fentanyl, Versed and propofol * Young catheter: Exchanged on 01/30/2025 DISPOSITION: ICU status Patient's status discussed with patient's son, sister, and [id number] at the bedside. Critical care time spent more than 82 minutes, including patient care, chart review, and updating the family. Excluding any procedure. Case discussed with Dr. Chadwick Plan discussed with: Patient, Other (RN) My Orders My Orders Orders - SONA HEARD RESDIVIRI Procedure Category Date Status Time Chest Xray 1 View XY 01/30/25 Resulted 04:00 Abg W/ Co-Ox RT 01/30/25 Logged 04:00 Lactulose Oral PHA 01/30/25 In Process 07:00 Pantoprazole PHA 01/30/25 In Process (Protonix) 10:00 Fluconazole PHA 01/31/25 In Process 200mg/100ml (Diflucan 10:00 Urine Bacterial TERE 01/30/25 In Process Culture 11:27 Ok To Change Young ORDERS 01/30/25 Transmitted 11:27 Enoxaparin Sodium PHA 01/30/25 In Process (Lovenox) 22:00 Bilat Lower Dvt US 01/30/25 Resulted 11:51 Dietary Evaluation Review Comments: 1) Initiate Nephro-Haritha @ 1 tb qd 2) If patient remains NPO > 7 days, consider EN/TPN to meet at least 75% of estimated daily needs 3) If GI route is preferred, consider Nepro CarbSteady @ 30 mL/hr goal rate as tolerated. EN regimen will provide 1296 kcals. 58g Pro, and 523 mL free H2O per 24 hrs. Goal rate will meet ~ 92% estimated daily energy needs and ~ 43% estimated daily protein needs. 4) Advance to 60g CCHO renal diet when medically feasible, pending ST approal 5) Refer to outpatient RD/CDCES for weight management 6) Follow-up with cardiology, pulmonology, nephrology, gastroenterology, and hepatology 7) Follow-up with protective services social worker r/t polysubstance abuse 8) Continue to monitor I&O, labs, and skin integrity Expected Outcomes/Goals: 1) patient to receive nutrition support within 7 days of NPO status 2) labs and GI symptoms to improve 3) diet to advance 4) f/u in 2-3 days Date of Service: Jan 30, 2025 Billing Provider: PINA CHADWICK MD Common Visit Codes: [id number] CARE 30-74 MIN SONA HEARD Jan 30, 2025 13:50 PINA CHADWICK MD Feb 03, 2025 11:24
[2025-01-30] MEDS: SPIRONOLACTONE 25 MG TAB PO ONE (14:14)
[2025-01-30] MEDS: FUROSEMIDE 20 MG/2 ML VIAL IV SCH (15:01)
[2025-01-30] MEDS: PROPOFOL 100 ML IV SCH (17:13)
[2025-01-30] MEDS ORDERED: ACETAMINOPHEN 325 MG TAB PO PRN (17:15)
--- NOTE | 2025-01-30 17:47 | DVHPN2 ---
Progress Note Date Seen: Jan 30, 2025 Resident Creating Document: NATALY BURNETTE RESIDENT Has the PT tested + for MRSA If YES, has PT been informed?: No Medical Necessity Reason Pt with a Central, PICC or Fol: Yes The following are medically ne: Central Line (Left non tunneled IJ and tunneled right subclavian), Young Catheter Reason for young catheter: Strict I&O Subjective Review of Systems This is a critically ill patient currently intubated and on mechanical ventilation, evaluated at the bedside today by the GI team. The patient is being managed for ongoing sepsis with persistent high-grade fever spikes, and multiple positive cultures have been documented over the past two weeks. * OG tube feeds continued currently on Nepro with Carb Steady at 40 cc/hr, increased to 50 cc/hr as of today for nutritional optimization. * Had four bowel movements overnight no gross blood, melena, or hematochezia reported. * Ongoing recurrent fever spikes. * Patient remains sedated but is being weaned off Versed. BRIEF SUMMARY OF TODAYS PROGRESS: * Patient continues to have GI tolerance to tube feeds with regular bowel movements and no GI bleeding. * Still spiking fevers with polymicrobial positive cultures in prior days (Salmonella, E. coli, yeast), requiring careful ongoing antimicrobial stewardship and ID input. * Liver enzymes, previously elevated, are now downtrending, indicating hepatic recovery or resolution of acute insult. * Nepro feed rate increased to 50 cc/hr today for better nutrition delivery. * No abdominal distension or signs of ileus noted. * TPN has been discontinued; enteral nutrition appears adequate. Objective vital signs Vital Sign Date Time Temp Pulse Resp B/P (MAP) Pulse Ox O2 Delivery O2 Flow Rate FiO2 01/30/25 16:00 30 01/30/25 15:59 100.4 100.4 01/30/25 15:45 71 26 96 01/30/25 12:00 Mechanical Ventilator+ Total Intake and Output 01/29/25 01/29/25 01/30/25 15:00 23:00 07:00 Intake Total 1257.41 ml 1144.24 ml 1364.24 ml Output Total 850 ml 1000 ml Balance 1257.41 ml 294.24 ml 364.24 ml medications Current Medications Medications Dose Ordered Sig/Natividad Route Start Time Stop Time Status Last Admin Dose Admin Midazolam HCl 50 ml @ 1 mls/hr Q24H IV 01/19/25 11:15 01/30/25 15:01 5 MLS/HR Fentanyl Citrate 250 ml @ 2.5 mls/hr Q24H IV 01/19/25 11:15 01/30/25 11:07 25 MLS/HR Thiamine HCl 100 mg DAILY IV 01/20/25 10:00 01/30/25 09:47 100 MG Folic Acid 1 mg/ Dextrose 50.2 ml @ 200.8 mls/ hr DAILY INJ 01/20/25 10:00 01/30/25 09:50 200.8 MLS/HR Dextrose 50 ml UD PRN IV 01/19/25 13:15 Diagnostic Test (Pha) 1 strip Q6HR 01/23/25 10:00 01/30/25 17:27 1 STRIP Insulin Human Lispro Q6HR SC 01/23/25 10:00 01/30/25 12:25 1 UNITS Metoclopramide HCl 5 mg Q8HR IV 01/23/25 16:30 01/30/25 14:14 5 MG Norepinephrine Bitartrate 250 ml @ 3.75 mls/hr Q24H IV 01/26/25 14:30 Enteral Nutritional Formula 1,000 ml 50ML/HR GT 01/26/25 17:00 Sodium Chloride 10 ml QSHIFT@10,22 IV 01/28/25 22:00 01/30/25 09:48 10 ML Meropenem 50 ml @ 17 mls/hr Q8H IV 01/29/25 18:00 01/30/25 17:27 17 MLS/HR Lactulose 30 ml DAILY PRN PO 01/30/25 07:00 Pantoprazole Sodium 40 mg DAILY IV 01/30/25 10:00 01/30/25 09:47 40 MG Fluconazole 100 ml @ 100 mls/hr 10,11 IV 01/31/25 10:00 Enoxaparin Sodium 90 mg Q12HR SC 01/30/25 22:00 Carvedilol 6.25 mg Q12HR PO 01/30/25 22:00 Spironolactone 25 mg DAILY PO 01/31/25 10:00 Furosemide 20 mg DAILY IV 01/30/25 14:45 01/30/25 15:01 20 MG Propofol 100 ml @ 2.823 mls/ hr Q24H IV 01/30/25 16:45 01/30/25 17:13 5.646 MLS/HR Sacubitril/ Valsartan 1 tab BID PO 01/30/25 22:00 Acetaminophen 650 mg Q6HP PRN PO 01/30/25 17:15 Examination * General: Intubated, sedated but hemodynamically stable. * Abdomen: Soft, non-distended, no guarding or rigidity. * Bowel Sounds: Present in all quadrants. laboratory and microbiology Laboratory Tests 01/30/25 03:03 Test 01/30/25 03:03 Range/Units Serum Glucose 174 H 74-106 mg/dL Microbiology Date/Time Source Procedure Growth Status 01/29/25 11:35 Sputum Gram Stain - Final Resulted 01/29/25 11:35 Sputum Respiratory Culture - Preliminary Resulted 01/27/25 18:30 Urine - Young Port Urine Culture - Final Complete 01/27/25 14:15 Blood Blood Culture - Preliminary NO GROWTH AFTER 72 HOURS OF INCUBATION. Resulted 01/23/25 20:14 Lung - Final Resulted 01/23/25 20:14 Lung - Final Resulted 01/23/25 20:14 Lung Pending Resulted 01/23/25 20:14 Lung Pending Resulted 01/23/25 20:14 Lung - Final See Separate Report... Resulted Problem List/Assessment/Plan Problem List/Assessment/Plan Assessment 1. Upper GI bleeding resolved/stable * No new bleeding; NG aspirate clear; H/H stable. 2. Alcoholic cirrhosis with portal hypertension * MELD remains high; LFTs improving; continue monitoring. 3. Critical illness with gastroparesis improving with prokinetic therapy. 4. Constipation persistent despite regimen, possibly opioid/sedation related. 5. Sepsis with WBC spike on antibiotics; respiratory culture positive for Lelo (likely colonization vs. infection). 6. Enteral feeding well tolerated at 50 mL/hr. Plan GI System Gastrointestinal / Nutrition Continue Nepro 50 cc/hr via OG tube * Target caloric goals and adjust as per RD recommendations. * Monitor for signs of aspiration, diarrhea, distension, and high residuals. * Bowel regimen PRN monitor for diarrhea; stool studies if diarrhea persists >24 hours. * Monitor liver enzymes (ALT, AST, ALP, TBili) daily. * Maintain IV Protonix 40 mg BID for stress ulcer and variceal prophylaxis. * Continue IV Reglan 5 mg q8h to improve gastric motility. * Maintain aspiration precautions (HOB >30). Hepatic * Daily LFTs, INR, ammonia. * Avoid hepatotoxic drugs; monitor for encephalopathy. Case discussed in detail with the attending physician, including the clinical presentation, diagnostic workup, and comprehensive management plan. Plan discussed with: Other (rn) Dietary Evaluation Review Comments: 1) Initiate Nephro-Haritha @ 1 tb qd 2) If patient remains NPO > 7 days, consider EN/TPN to meet at least 75% of estimated daily needs 3) If GI route is preferred, consider Nepro CarbSteady @ 30 mL/hr goal rate as tolerated. EN regimen will provide 1296 kcals. 58g Pro, and 523 mL free H2O per 24 hrs. Goal rate will meet ~ 92% estimated daily energy needs and ~ 43% estimated daily protein needs. 4) Advance to 60g CCHO renal diet when medically feasible, pending ST approal 5) Refer to outpatient RD/CDCES for weight management 6) Follow-up with cardiology, pulmonology, nephrology, gastroenterology, and hepatology 7) Follow-up with social media intern r/t polysubstance abuse 8) Continue to monitor I&O, labs, and skin integrity Expected Outcomes/Goals: 1) patient to receive nutrition support within 7 days of NPO status 2) labs and GI symptoms to improve 3) diet to advance 4) f/u in 2-3 days NATALY BURNETTE RESIDENT Jan 30, 2025 17:47
[2025-01-30 20:05] LABS: Alanine Aminotransferase 40 U/L (7-40); Anion Gap 9 (5-15); BUN/Creatinine Ratio 41.9 (10.0-20.0); Calcium 9.1 mg/dL (8.7-10.4); Carbon Dioxide 28 mmol/L (20-31); Potassium 4.0 mmol/L (3.5-5.1); Total Protein 5.8 g/dL (5.7-8.2)
[2025-01-30 20:06] LABS: Bilirubin, Total 0.5 mg/dL (0.2-1.0)
[2025-01-30 20:09] LABS: Albumin 3.0 g/dL (3.2-4.8); Alkaline Phosphatase 258 U/L (46-116); Blood Urea Nitrogen 44 mg/dL (9-23); Chloride 116 mmol/L (98-107); Glucose 159 mg/dL (74-106); Sodium 153 mmol/L (136-145)
--- NOTE | 2025-01-30 21:31 | DVH ---
CHEST RADIOGRAPH Indication: pneumonia Technique: 1 view Comparison: XY CHEST XRAY 1 VIEW on DOS: 01/30/25, XY CHEST XRAY 1 VIEW on DOS: 01/29/25, XY CHEST PORTAB LE on DOS: 01/29/25, XY CHEST XRAY 1 VIEW on DOS: 01/28/25, XY CHEST XRAY 1 VIEW on DOS: 01/27/25 FINDINGS: Lines and Tubes: Unchanged endotracheal tube, enteric tube, left upper extremity PICC and tunneled ri ght IJ catheter. Lungs: Improved left and worsened right perihilar interstitial opacities. Mild bibasilar atelectasis remains. Pleura: Small pleural effusions. Cardiomediastinal contours: Unchanged. Bones: Unchanged. IMPRESSION: 1. Worsening right and improving left perihilar interstitial opacities, suggesting shifting pulmonary edema. Similar small pleural effusions. 2. Stable support devices.
[2025-01-30] MEDS: ENOXAPARIN SOD 100 MG/1 ML SYRINGE SC SCH (22:28)
[2025-01-30] MEDS: CARVEDILOL 3.125 MG TAB PO SCH (22:30)
[2025-01-30] MEDS: SACUBITRIL-VALSARTAN 24mg/26mg TAB PO SCH (22:42)
--- NOTE | 2025-01-30 23:31 | DVHPN2 ---
Progress Note - Dictate Date Seen: Jan 30, 2025 Has the PT tested + for MRSA If YES, has PT been informed?: No Medical Necessity Reason Pt with a Central, PICC or Fol: Yes The following are medically ne: Central Line (Left non tunneled IJ and tunneled right subclavian), Young Catheter Reason for young catheter: Strict I&O Subjective [facility] Patient seen and examined at bedside. Sedated, intubated on mechanical ventilator. Overnight events reviewed. vital signs Vital Sign Date Time Temp Pulse Resp B/P (MAP) Pulse Ox O2 Delivery O2 Flow Rate FiO2 01/30/25 22:30 80 115/75 01/30/25 22:21 21 96 30 01/30/25 18:00 Mechanical Ventilator+ 01/30/25 15:59 100.4 100.4 Total Intake and Output 01/29/25 01/29/25 01/30/25 15:00 23:00 07:00 Intake Total 1257.41 ml 1144.24 ml 1364.24 ml Output Total 850 ml 1000 ml Balance 1257.41 ml 294.24 ml 364.24 ml medications Current Medications Medications Dose Ordered Sig/Natividad Route Start Time Stop Time Status Last Admin Dose Admin Midazolam HCl 50 ml @ 1 mls/hr Q24H IV 01/19/25 11:15 01/30/25 15:01 5 MLS/HR Fentanyl Citrate 250 ml @ 2.5 mls/hr Q24H IV 01/19/25 11:15 01/30/25 11:07 25 MLS/HR Thiamine HCl 100 mg DAILY IV 01/20/25 10:00 01/30/25 09:47 100 MG Folic Acid 1 mg/ Dextrose 50.2 ml @ 200.8 mls/ hr DAILY INJ 01/20/25 10:00 01/30/25 09:50 200.8 MLS/HR Dextrose 50 ml UD PRN IV 01/19/25 13:15 Diagnostic Test (Pha) 1 strip Q6HR 01/23/25 10:00 01/30/25 17:27 1 STRIP Insulin Human Lispro Q6HR SC 01/23/25 10:00 01/30/25 12:25 1 UNITS Metoclopramide HCl 5 mg Q8HR IV 01/23/25 16:30 01/30/25 22:30 5 MG Norepinephrine Bitartrate 250 ml @ 3.75 mls/hr Q24H IV 01/26/25 14:30 Enteral Nutritional Formula 1,000 ml 50ML/HR GT 01/26/25 17:00 Sodium Chloride 10 ml QSHIFT@10,22 IV 01/28/25 22:00 01/30/25 22:00 10 ML Meropenem 50 ml @ 17 mls/hr Q8H IV 01/29/25 18:00 01/30/25 17:27 17 MLS/HR Lactulose 30 ml DAILY PRN PO 01/30/25 07:00 Pantoprazole Sodium 40 mg DAILY IV 01/30/25 10:00 01/30/25 09:47 40 MG Fluconazole 100 ml @ 100 mls/hr 10,11 IV 01/31/25 10:00 Enoxaparin Sodium 90 mg Q12HR SC 01/30/25 22:00 01/30/25 22:28 90 MG Carvedilol 6.25 mg Q12HR PO 01/30/25 22:00 01/30/25 22:30 6.25 MG Spironolactone 25 mg DAILY PO 01/31/25 10:00 Furosemide 20 mg DAILY IV 01/30/25 14:45 01/30/25 15:01 20 MG Propofol 100 ml @ 2.823 mls/ hr Q24H IV 01/30/25 16:45 01/30/25 17:13 5.646 MLS/HR Sacubitril/ Valsartan 1 tab BID PO 01/30/25 22:00 01/30/25 22:42 1 TAB Acetaminophen 650 mg Q6HP PRN PO 01/30/25 17:15 objective Gen.: Patient lying in bed in medical ICU. Sedated, intubated on mechanical ventilator. Head: Normocephalic, atraumatic. Eyes: PERRLA. Ears: Normal external anatomy. Throat: Endotracheal tube and orogastric tube in place. Neck: Supple, trachea midline. Chest: Transmitted breath sounds bilaterally. Decreased air entry bilaterally. No wheezing. Bibasilar crackles. Cardiovascular: Positive S1, positive S2. Regular rate and rhythm. Abdomen: Positive bowel sounds in all 4 quadrants. Soft, nontender, nondistended. : Young in place. Normal external genitalia. Rectal: Deferred. Skin: Warm, dry. Intact. Extremities: 2+ radial pulses bilaterally. No lower extremity edema. Neuro: Sedated laboratory and microbiology Laboratory Tests 01/30/25 19:27 01/30/25 03:03 Test 01/30/25 19:27 Range/Units Serum Glucose 159 H 74-106 mg/dL Assessment/Plan Impression: Acute hypoxic respiratory failure On mechanical ventilator Sepsis ESRD, on hemodialysis Obesity, BMI 34.7 Events: Remains on vent support Vent settings: AC mode; RR 20, VT 500, PEEP 5, FiO2 30% Taper FiO2 as tolerated ABG reviewed, compensated. CXR shows worsening right and improving left perihilar interstitial opacities, suggesting shifting pulmonary edema. Similar small pleural effusions. Sedated on Propofol, Fentanyl drip. Off Versed Continue antibiotics Patient continues to spike fevers. Follow up Vascular Surgery recommendations Plan for digit amputation by Vascular Surgery Continue antifungal Blood pressure control Hemodialysis per Nephrology Monitor renal function Monitor electrolytes. Supplement as necessary. Monitor ins and outs. Tube feeds for nutritional support CT abdomen-pelvis reviewed; Scattered fluid-filled small bowel loops; mild colonic diverticulosis; moderate retained stool in the colon. Moderate dependent consolidations in the bilateral lobes with air bronchograms likely atelectasis, though pneumonia (which can be on the basis of aspiration) is an additional consideration. Mild hepatosplenomegaly. Gastric tube terminates in the gastric fundus. S/p therapeutic bronchoscopy with RML BAL (01/23); cleared mucous plugging from L6-L10 and R1-R10. Sent for bacterial, fungal and viral cultures - follow up results. Limited chest ultrasound on 01/23 revealed compressive atelectasis. Consolidated lung. No pleural effusion noted. Please see separate procedure notes for details Labs and imaging reviewed. Rest of plan as noted below. Plan: s/p intubation on mechanical ventilator. Vent settings: AC mode; RR 20, VT 500, PEEP 5, FiO2 30% Titrate FIO2 to keep O2 saturation above 90%. VAP bundle. Daily ABG and CXR while intubated Sedated for vent synchrony Antibiotics. F/u cultures - Blood culture positive; bacteremia w/ Salmonella species. Repeat blood cultures show no growth Pressors as necessary for hemodynamic support. Titrate to keep MAP greater than 65 mmHg. S/p right radial thrombectomy by Vascular Surgery Possible plan for digit amputation by Vascular Surgery. Monitor hemoglobin Accu-Cheks, ISS PRN. HD per Nephrology Monitor renal function Monitor electrolytes. Supplement as necessary. Monitor ins and outs. Maintain euvolemia Wound care Diet and lifestyle modifications for weight reduction Obesity - complicates all care GI/DVT prophylaxis. Prognosis: Poor given patient's multiple co-morbidities. Condition: Critical Rest of plan per hospitalist and other consultants. A total of 35 minutes of critical care time was spent reviewing the patient record, examining the patient, making a diagnostic and therapeutic plan, discussing this plan with the medical personnel, following up on diagnostic studies and following the patient for clinical stability excluding any and all procedures. At least 50% of this time was spent in direct, [id number] contact. Thank you Dr. Dai for allowing me to participate in this patient's care. Further recommendations will depend on the patient's clinical course. Please do not hesitate to contact me if you have any questions or concerns. This medical document was created using an electronic medical record system with [employer] dictation system. Although these documentations are being carefully reviewed, there may still be some phonetic and typographical changes. The errors are purely typographical, due to imperfection on the software program, and do not reflect any compromise in the patient's medical care. Dietary Evaluation Review Comments: 1) Initiate Nephro-Haritha @ 1 tb qd 2) If patient remains NPO > 7 days, consider EN/TPN to meet at least 75% of estimated daily needs 3) If GI route is preferred, consider Nepro CarbSteady @ 30 mL/hr goal rate as tolerated. EN regimen will provide 1296 kcals. 58g Pro, and 523 mL free H2O per 24 hrs. Goal rate will meet ~ 92% estimated daily energy needs and ~ 43% estimated daily protein needs. 4) Advance to 60g CCHO renal diet when medically feasible, pending ST approal 5) Refer to outpatient RD/CDCES for weight management 6) Follow-up with cardiology, pulmonology, nephrology, gastroenterology, and hepatology 7) Follow-up with social media senior associate r/t polysubstance abuse 8) Continue to monitor I&O, labs, and skin integrity Expected Outcomes/Goals: 1) patient to receive nutrition support within 7 days of NPO status 2) labs and GI symptoms to improve 3) diet to advance 4) f/u in 2-3 days Plan discussed with: Other (DENISSE Pa) Critical Care Time(min): 35 TIM GE MD Jan 30, 2025 23:31
[2025-01-31] VITALS (107 sets, daily range): BP systolic 87–139; BP diastolic 48–73; PULSE 57–145; RESP 16–30; TEMP 97.3–102.6; O2SAT 93–100
[2025-01-31 03:48] LABS: Hematocrit 32.4 % (41.0-53.0); Hemoglobin 10.8 g/dL (13.5-17.5); Mean Corpuscular Hemoglobin 29.2 pg (28.0-32.0); Mean Corpuscular Volume 87.9 fL (80.0-100.0); Nucleated Red Blood Cells % 0.1 %
[2025-01-31 03:59] LABS: Anion Gap 10 (5-15); Carbon Dioxide 29 mmol/L (20-31); Potassium 4.1 mmol/L (3.5-5.1)
[2025-01-31 04:00] LABS: Calcium 9.1 mg/dL (8.7-10.4); Chloride 115 mmol/L (98-107); Sodium 154 mmol/L (136-145)
[2025-01-31 04:05] LABS: BUN/Creatinine Ratio 48.0 (10.0-20.0)
[2025-01-31 04:06] LABS: Blood Urea Nitrogen 47 mg/dL (9-23); Glucose 176 mg/dL (74-106)
[2025-01-31] MEDS: SOD CHL 0.45% 1,000 ML IV ONE (06:55)
[2025-01-31] MEDS: Nepro With Carb Steady 1 Liter Bottle GT SCH (07:06)
[2025-01-31] MEDS: CARVEDILOL 3.125 MG TAB PO SCH (07:15)
[2025-01-31 07:29] LABS: Base Excess 0.3 mmol/L (-2.0-3.0)
[2025-01-31] MEDS: FUROSEMIDE 20 MG/2 ML VIAL IV SCH (09:37)
[2025-01-31] MEDS: FLUCONAZOLE 200MG/100ML 100 ML IV SCH (09:37)
[2025-01-31] MEDS: SPIRONOLACTONE 25 MG TAB PO SCH (09:38)
--- NOTE | 2025-01-31 11:34 | DVHINCON2 ---
Date of service: Jan 30, 2025 Family History: FH: HTN (hypertension) G8 MOTHER G8 FATHER FH: cancer of digestive organ G8 MOTHER FH: kidney disease G8 FATHER Allergies: Coded Allergies: NO KNOWN ALLERGIES (Unverified , 07/27/11) Home Meds Reported Medications Hydrocodone-Acetaminophen (Vicodin) 1 Tab Tab 07/27/11 Allopurinol (Allopurinol) 100 Mg Tab 07/27/11 Current Medications Current Medications Medications (Trade) Dose Ordered Sig/Natividad Route PRN Reason Start Time Stop Time Status Last Admin Fluconazole 100 ml @ 100 mls/hr 10,11 IV 01/31/25 10:00 01/31/25 10:30 Enoxaparin Sodium (Lovenox) 90 mg Q12HR SC 01/30/25 22:00 01/31/25 09:35 Carvedilol (Coreg Tablet) 6.25 mg Q12HR PO 01/30/25 22:00 01/31/25 07:07 DC 01/30/25 22:30 Spironolactone (Aldactone) 25 mg DAILY PO 01/31/25 10:00 01/31/25 09:38 Furosemide (Lasix Injection) 20 mg DAILY IV 01/30/25 14:45 01/31/25 07:08 DC 01/30/25 15:01 Propofol 100 ml @ 2.823 mls/ hr Q24H IV 01/30/25 16:45 01/30/25 17:13 Sacubitril/ Valsartan (Entresto 24-26 Mg tab) 1 tab BID PO 01/30/25 22:00 01/31/25 06:36 DC 01/30/25 22:42 Acetaminophen (Tylenol Tablet) 650 mg Q6HP PRN PO PAIN SCALE 1-3 OR TEMP>100.4 01/30/25 17:15 01/31/25 07:10 DC Carvedilol (Coreg Tablet) 3.125 mg Q12HR PO 01/31/25 07:15 01/31/25 10:02 Furosemide (Lasix Injection) 40 mg DAILY IV 01/31/25 10:00 01/31/25 09:37 Acetaminophen (Tylenol Tablet) 650 mg Q6HP PRN PO TEMP GREATER THAN 104 01/31/25 07:15 Purified Water 400 ml Q6HR GT 01/31/25 12:00 Vital Signs Vital Signs Date Time Temp Pulse Resp B/P (MAP) Pulse Ox O2 Delivery O2 Flow Rate FiO2 01/31/25 11:02 70 127/63 01/31/25 09:15 25 98 30 01/31/25 07:00 99.7 99.7 01/31/25 06:00 Mechanical Ventilator+ Labs/Diagnostic Data Labs Test 01/31/25 07:04 01/31/25 06:15 01/31/25 03:01 01/30/25 19:27 Range/Units Blood Gas Specimen Type Arterial Blood Gas Sample Site Left radial Blood Gas Patient Temperature 37.0 Arterial Blood Date Drawn [id number] Arterial Blood pH 7.407 7.350-7.450 Arterial Blood Partial Pressure CO2 40.6 35.0-48.0 mmHg Arterial Blood Partial Pressure O2 66.1 L 83.0-108.0 mmHg Arterial Blood HCO3 25.0 21.0-28.0 mmol/L Arterial Blood Oxygen Saturation 91.1 L 94.0-98.0 % Arterial Blood Base Excess 0.3 -2.0-3.0 mmol/L Arterial Blood Oxyhemoglobin 90.2 L 94.0-98.0 % Arterial Blood Carboxyhemoglobin 0.7 0.5-1.5 % Arterial Blood Methemoglobin 0.3 0.0-1.5 % Eligio Test Modified Blood Gas Total Hemoglobin 11.90 L 13.5-17.5 g/dL Blood Gas Set Respiration Rate 20.0 Blood Gas Modality Vent - ac FiO2 % 30.0 Blood Gas Tidal Volume 500.0 Blood Gas PEEP or CPAP 5.0 POC Glucose 181 H 70-106 mg/dl White Blood Count 11.3 H 4.4-10.8 10^3/uL Red Blood Count 3.69 L 4.5-5.90 10^6/uL Hemoglobin 10.8 L 13.5-17.5 g/dL Hematocrit 32.4 L 41.0-53.0 % Mean Corpuscular Volume 87.9 80.0-100.0 fL Mean Corpuscular Hemoglobin 29.2 28.0-32.0 pg Mean Corpuscular Hemoglobin Concent 33.2 32.0-36.0 g/dL Red Cell Distribution Width 16.2 H 11.8-14.3 % Platelet Count 367 140-450 10^3/uL Mean Platelet Volume 9.1 6.9-10.8 fL Neutrophils (%) (Auto) 68.6 37.0-80.0 % Lymphocytes (%) (Auto) 22.2 10.0-50.0 % Monocytes (%) (Auto) 8.3 0.0-12.0 % Eosinophils (%) (Auto) 0.6 0.0-7.0 % Basophils (%) (Auto) 0.3 0.0-2.0 % Neutrophils # (Auto) 7.7 1.6-8.6 10 ^3/uL Lymphocytes # (Auto) 2.5 0.4-5.4 10 ^3/uL Monocytes # (Auto) 0.9 0-1.3 10 ^3/uL Eosinophils # (Auto) 0.1 0-0.8 10 ^3/uL Basophils # (Auto) 0 0-0.2 10 ^3/uL Nucleated Red Blood Cells 0.1 % Sodium Level 154 H 136-145 mmol/L Potassium Level 4.1 3.5-5.1 mmol/L Chloride Level 115 H 98-107 mmol/L Carbon Dioxide Level 29 20-31 mmol/L Anion Gap 10 5-15 Blood Urea Nitrogen 47 H 9-23 mg/dL Creatinine 0.98 0.700-1.30 mg/dL Glomerular Filtration Rate Calc 88 >90 mL/min BUN/Creatinine Ratio 48.0 H 10.0-20.0 Serum Glucose 176 H 74-106 mg/dL Calcium Level 9.1 8.7-10.4 mg/dL Total Bilirubin 0.5 0.2-1.0 mg/dL Aspartate Amino Transferase (AST) 51 H 13-40 U/L Alanine Aminotransferase (ALT) 40 7-40 U/L Alkaline Phosphatase 258 H 46-116 U/L Total Protein 5.8 5.7-8.2 g/dL Albumin 3.0 L 3.2-4.8 g/dL Test 01/29/25 03:10 01/26/25 11:15 01/26/25 03:44 01/25/25 03:25 Range/Units Random Vancomycin Level 16.5 H 5-10 ug/mL Prothrombin Time 12.6 H 9.3-11.8 sec Prothrombin Time INR 1.21 H 0.9-1.15 Activated Partial Thromboplast Time 29.6 24.5-34.5 SEC Lactic Acid Level 1.1 0.4-2.0 mmol/L Ammonia 15 11-32 umol/L Magnesium Level 2.3 1.6-2.6 mg/dL Test 01/24/25 03:13 01/23/25 07:42 01/20/25 06:18 01/20/25 03:17 Range/Units Differential Total Cells Counted 100.0 100 Neutrophils % (Manual) 82 H 37.0-80.0 Band Neutrophils % (Manual) 0 Lymphocytes % (Manual) 11 10.0-50.0 Monocytes % (Manual) 7 0-12 Eosinophils % (Manual) 0 0-7 Basophils % (Manual) 0 0.0-2.0 Metamyelocytes % (manual) 0 Myelocytes % (Manual) 0 Promyelocytes % (Manual) 0 Blast Cells % (Manual) 0 Reactive Lymphocytes 0 Platelet Estimate Decrea Large Platelets Few Giant Platelets Few Stomatocytes Few Blood Gas Spontaneous Rate 20 Specimen Drawn By Juli [facility] Blood Gas Critical Value Read Back Yes Blood Gas Notified Whom Dr. renato bueno Blood Gas Notified Time [id number] Blood Gas Notified By Rt alvina simmons Ferritin 542.8 H 22-322 ng/mL Direct Bilirubin 3.7 H <0.3 mg/dL Anti-Nuclear Antibody Screen Negative Negative Hepatitis A IgM Antibody Negative Hepatitis A Antibody Total Positive H Negative Hepatitis B Surface Antigen Negative Negative Hepatitis B Surface Antibody Negative Negative Hepatitis B Core Total Antibody Negative Negative Hepatitis B Core IgM Antibody Negative Negative Hepatitis C Antibody Negative Negative HIV (1&2) Antibody Negative Negative Test 01/19/25 09:53 01/18/25 08:36 01/18/25 06:08 01/18/25 05:55 Range/Units Blood Gas Liter Flow 12.00 Troponin I High Sensitivity 30 </=54 ng/L Urine Color Yellow Yellow Urine Clarity Turbid H Clear Urine pH 6.0 5.0-9.0 Urine Specific Kemp 1.017 1.001-1.035 Urine Protein 2+ H Negative Urine Ketones Negative Negative Urine Blood 2+ H Negative /uL Urine Nitrite Negative Negative Urine Bilirubin 1+ Negative Urine Urobilinogen 3 H Negative mg/dL Urine Leukocyte Esterase Negative Negative /uL Urine RBC 3 0 - 3 /hpf Urine Microscopic WBC 4 H 0-3 /HPF Urine Squamous Epithelial Cells None seen <5 /hpf Urine Bacteria None seen None Seen /hpf Urine Sperm Present None Seen /hpf Urine Glucose Normal Normal mg/dL Hemoglobin A1c 6.5 H <5.7 % A1C B-Type Natriuretic Peptide 457.18 0-100 pg/mL Thyroid Stimulating Hormone (TSH) 1.78 0.55-4.78 uIU/mL Free Thyroxine (T4) Calculated 1.17 0.89-1.76 ng/dL Free Triiodothyronine (T3) pg/mL 2.53 2.3-4.2 pg/mL Microbiology Date/Time Source Procedure Growth Status 01/30/25 11:27 Urine - [place] Urine Culture - Preliminary Resulted 01/29/25 11:35 Sputum Gram Stain - Final Resulted 01/29/25 11:35 Sputum Respiratory Culture - Preliminary Resulted 01/27/25 14:15 Blood Blood Culture - Preliminary NO GROWTH AFTER 72 HOURS OF INCUBATION. Resulted 01/23/25 20:14 Lung - Final Resulted 01/23/25 20:14 Lung - Final Resulted 01/23/25 20:14 Lung Pending Resulted 01/23/25 20:14 Lung Pending Resulted 01/23/25 20:14 Lung - Final See Separate Report... 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 coli aspiration pneumonia \-- Acute kidney injury, now improving \-- Thrombocytopenia (platelets low, now improving) \-- Severe degenerative lumbar disc disease with foraminal stenosis \-- Chronic alcohol dependence \-- Gout \-- Constipation \-- Poor medical follow-up Assessment: This is a 60-year-old male with a history of gout (not on any medications), chronic heavy alcohol use, and no surgical history, who presented with severe back pain and evidence of systemic infection with complicated clinical course. Patient was admitted for possible complicated urinary tract infection/urosepsis/pyelonephritis, acute kidney injury, and alcohol withdrawal. Notable findings include: severe thrombocytopenia on admission (platelets 53), initial lactic acidosis, and persistently elevated white count. Blood cultures grew Salmonella group D (sensitive to ampicillin and trimethoprim- sulfamethoxazole). Sputum culture grew penicillin-sensitive E. coli. Later, daria was found in the lungs; fluconazole was started. Patient required broad- spectrum antibiotics (initially meropenem and vancomycin), now with plans to deescalate as below. Fevers initially resolved, then recurred. Creatinine acutely increased (peak 5.25), now improved to 1.37; hemoglobin stable. Imaging notable for degenerative severe lumbar disc disease, cardiomegaly with left ventricular dysfunction and severe pulmonary hypertension, bilateral mild effusions, hepatomegaly, hepatosteatosis, and inguinal hernias. Plan: \-- De-escalate antimicrobials: discontinue vancomycin and meropenem and flu conazole; start levofloxacin to complete total 14-day course for Salmonella bacteremia and pneumonia \-- Monitor for recurrent or persistent fevers; if persistent, consider drug fever, catheter-associated thrombosis, or other non-infectious etiology \-- Doppler ultrasound of the right upper and both lower extremities to evaluate for deep vein thrombosis due to swelling \-- If no etiology is found and fevers persist after above measures, consider CT pulmonary angiogram to evaluate for pulmonary embolism \-- Remove hemodialysis line catheter if not currently required \-- Continue aspiration precautions \-- Monitor renal function, platelet count, and hemodynamics \-- Manage constipation as indicated; patient has had several bowel movements since admission \-- Admit for monitoring of alcohol withdrawal and supportive care \-- Continue to evaluate and manage pain related to severe lumbar degenerative disc disease Authorized and Performed by: pastora navarrete MD Total critical care time: Approximately 76 minutes Due to a high probability of clinically significant, life threatening deterioration, the patient required my highest level of preparedness to intervene emergently and I personally spent this critical care time directly and personally managing the patient. This critical care time included obtaining a history; examining the patient; pulse oximetry; ordering and review of studies; arranging urgent treatment with development of a management plan; evaluation of patient's response to treatment; frequent reassessment; and, discussions with other providers. This critical care time was performed to assess and manage the high probability of imminent, life-threatening deterioration that could result in multi-organ failure. It was exclusive of separately billable procedures and treating other patients and teaching time. Isolation Precautions: Aspiration precautions \*Assessment and plan were discussed with the patient as written above \*Plan is subject to change pending incorporation of new incoming information/diagnostics. Updates may be added as addendum at the bottom (OR TOP) of this note Thank you for interesting consult. ID will continue to follow. Please contact Infectious Disease for any questions or concerns. Pastora Navarrete M.D. [facility] Ph: ? \ History: The patient's chart and medications were reviewed in detail and the patient was seen and examined. History obtained from: patient This is a 60-year-old male with a past medical history of gout (not on any medications), and chronic alcohol dependence, presenting with severe back pain, fevers, and evidence of systemic infection. Notable: \-- Poor medical follow-up \-- Heavy alcohol use (six to eight beers daily), tobacco use (<1 pack/day) \-- No drug use \-- No surgical history Review of Systems: A complete 10-system review of systems was completed and negative except as noted in the HPI or here. ROS: -CONSTITUTIONAL: Reports intermittent fevers up to 101.5F, back pain. -HEENT: Not discussed. -RESPIRATORY: Denies cough or shortness of breath. (No active complaint noted.) -CV: Not discussed. -GI: Reports constipation; no abdominal pain or vomiting noted in transcript. -: Not discussed. -MSK: Severe back pain. -SKIN: Not discussed. -NEUROLOGICAL: Not discussed. -PSYCHIATRIC: Not discussed. Past Medical History: Gout (not on current medications) Alcohol dependence No further details provided Past Surgical History: No surgical history. Home Medications: No current home medications reported. Allergies: No known drug allergies. Family History: Not provided in transcript. Social History: Tobacco use: Smokes less than 1 pack per day. Alcohol use: Heavy, approximately 6-8 beers per day. Drug use: Denies. No other social information provided. Social Determinants of Health: Not provided in transcript. Objective: Vital Signs on Admission: Temp: 98.6 F BP: 124/77 Pulse: 104 Resp: 18 SpO2: 73% on 2L nasal cannula Most Recent Relevant Labs: -Lactic acid: 1.7 -Platelets: Initially low at 53, now improved to 367 -Hemoglobin: 13.5 -WBC: 6.0, with persistent elevation to 11.5 on 01/24 -Urinalysis: No pyuria, negative nitrates, negative leukocyte esterase -Hepatitis serologies: Hepatitis A antibody positive but IgM negative; Hepatitis B, C, HIV negative Physical Exam: General: NAD Neck: Supple. No masses. HEENT: PERRL. Normal lids and conjunctiva. Moist mucous membranes. Oropharynx without lesions, exudates or excessive erythema. Normal appearance of the external aspects of the nose and ears. Heart: Regular rhythm, normal rate. No murmur. No lower extremity edema. Lungs: Normal respiratory effort. Clear to auscultation bilaterally. No wheezes. No crackles. Abdomen: Soft. Non-tender. Non-distended. No masses or abdominal hernia. Msk: No digital cyanosis. Normal strength and tone in all 4 limbs Skin: Warm and dry, no rashes. Neuro: Alert. No facial droop or slurred speech. Extra-ocular movements intact. Sensation intact to soft touch in all 4 limbs. Psych: Appropriate mood. Full affect. Oriented to person, place, time, and situation. Lines: ICU and hemodialysis lines in place (recommendation to remove if not required). Diagnostic Studies: Available diagnostic studies were reviewed personally. Significant relevant results and findings are outlined below or addressed in the Assessment and Plan above. Pertinent Imaging: Recent Results -Chest X-ray: No acute disease. Mild diffuse prominence of pulmonary vasculature. -CT chest, abdomen, pelvis with contrast: Mild emphysema, bilateral trace pleu ral effusions, mild bilateral lower lobe atelectasis, cardiomegaly, right thyroid nodule, hepatomegaly, hepatosteatosis, borderline splenomegaly, fecal retention (suggestive of constipation), descending and sigmoid diverticulosis without evidence of acute diverticulitis, bilateral fatty inguinal indirect hernias (left > right), severe lumbar degenerative disc disease with multi-level significant neural foraminal stenosis. -Echocardiogram: Sinus tachycardia, atrial premature complexes, nonspecific T- wave abnormalities, QTc of 420 ms, slightly dilated left ventricle, global left ventricular hypokinesis, EF 45%, severe pulmonary hypertension. Laboratory/Microbiology: -Blood cultures: Salmonella group D isolated (sensitive to ampicillin and trimethoprim-sulfamethoxazole); repeat cultures negative -Sputum culture: penicillin-sensitive E. coli; daria recovered from lungs (bronchial washing) -Urine cultures: Negative -Hepatitis serologies as above -HIV and urine drug screen: Negative Plan discussed with: Patient PASTORA NAVARRETE MD Jan 31, 2025 11:34
[2025-01-31] MEDS: FREE WATER GT SCH (12:31)
--- NOTE | 2025-01-31 13:01 | DVH ---
RIGHT Upper Extremity Venous Duplex Clinical History: evaluate for dvt, edema Comparison: US US GUIDED VASCULAR ACCESS on DOS: 01/28/25, XY INSERTION OF VENOUS CATH on DOS: 01/25/25, US RT UPPER EXT ART DUPLEX on DOS: 01/21/25 Findings: Duplex Doppler evaluation of the venous system of the RIGHT lower neck and upper extremity including color Doppler and spectral/pulsed waveform analysis was performed. The internal jugular vein demonstrates appropriate compressibility and waveform variability. The subclavian vein is patent on color Doppler evaluation without intraluminal thrombus and demonstra nathaniel waveform variability. The visualized portion of the brachiocephalic vein is patent on color Doppler evaluation without intr aluminal thrombus and demonstrates waveform variability. The axillary vein demonstrates appropriate compressibility and waveform variability. The brachial veins demonstrate appropriate compressibility and patency on Doppler evaluation. The basilic vein demonstrates appropriate compressibility and patency on Doppler evaluation. The cephalic vein demonstrates appropriate compressibility and patency on Doppler evaluation. Impression: No venous thrombus identified in the RIGHT upper extremity vessels evaluated above. If clinical concern/symptoms persist or worsen, short-interval follow-up study is suggested.
--- NOTE | 2025-01-31 13:32 | DVHPN2 ---
Progress Note Date Seen: Jan 31, 2025 Has the PT tested + for MRSA If YES, has PT been informed?: No Medical Necessity Reason Pt with a Central, PICC or Fol: Yes The following are medically ne: Central Line (Left non tunneled IJ and tunneled right subclavian), Young Catheter Reason for young catheter: Strict I&O Subjective Review of Systems: Deferred Objective vital signs Vital Sign Date Time Temp Pulse Resp B/P (MAP) Pulse Ox O2 Delivery O2 Flow Rate FiO2 01/31/25 13:21 71 26 126/61 (82) 99 30 01/31/25 08:00 Mechanical Ventilator+ 01/31/25 07:00 99.7 99.7 Total Intake and Output 01/30/25 01/30/25 01/31/25 15:00 23:00 07:00 Intake Total 422.44 ml 1475.916 ml 1541 ml Output Total 1400 ml 550 ml Balance 422.44 ml 75.916 ml 991 ml medications Current Medications Medications Dose Ordered Sig/Natividad Route Start Time Stop Time Status Last Admin Dose Admin Midazolam HCl 50 ml @ 1 mls/hr Q24H IV 01/19/25 11:15 01/30/25 15:01 5 MLS/HR Fentanyl Citrate 250 ml @ 2.5 mls/hr Q24H IV 01/19/25 11:15 01/31/25 06:54 25 MLS/HR Thiamine HCl 100 mg DAILY IV 01/20/25 10:00 01/31/25 09:37 100 MG Folic Acid 1 mg/ Dextrose 50.2 ml @ 200.8 mls/ hr DAILY INJ 01/20/25 10:00 01/31/25 10:01 200.8 MLS/HR Dextrose 50 ml UD PRN IV 01/19/25 13:15 Diagnostic Test (Pha) 1 strip Q6HR 01/23/25 10:00 01/31/25 12:31 1 STRIP Insulin Human Lispro Q6HR SC 01/23/25 10:00 01/31/25 06:24 1 UNITS Metoclopramide HCl 5 mg Q8HR IV 01/23/25 16:30 01/31/25 06:20 5 MG Norepinephrine Bitartrate 250 ml @ 3.75 mls/hr Q24H IV 01/26/25 14:30 Enteral Nutritional Formula 1,000 ml 50ML/HR GT 01/26/25 17:00 01/31/25 07:06 1,000 ML Sodium Chloride 10 ml QSHIFT@10,22 IV 01/28/25 22:00 01/31/25 09:35 10 ML Lactulose 30 ml DAILY PRN PO 01/30/25 07:00 Pantoprazole Sodium 40 mg DAILY IV 01/30/25 10:00 01/31/25 09:36 40 MG Enoxaparin Sodium 90 mg Q12HR SC 01/30/25 22:00 01/31/25 09:35 90 MG Spironolactone 25 mg DAILY PO 01/31/25 10:00 01/31/25 09:38 25 MG Propofol 100 ml @ 2.823 mls/ hr Q24H IV 01/30/25 16:45 01/30/25 17:13 5.646 MLS/HR Carvedilol 3.125 mg Q12HR PO 01/31/25 07:15 01/31/25 10:02 3.125 MG Furosemide 40 mg DAILY IV 01/31/25 10:00 01/31/25 09:37 40 MG Acetaminophen 650 mg Q6HP PRN PO 01/31/25 07:15 Purified Water 400 ml Q6HR GT 01/31/25 12:00 01/31/25 12:31 400 ML Levofloxacin/ Dextrose 100 ml @ 100 mls/hr DAILY IV 02/01/25 10:00 UNV Examination: GENERAL:Abnormal, LUNGS:Abnormal, SKIN:Normal laboratory and microbiology Laboratory Tests 01/31/25 03:01 Test 01/31/25 03:01 Range/Units Serum Glucose 176 H 74-106 mg/dL Microbiology Date/Time Source Procedure Growth Status 01/30/25 11:27 Urine - [place] Urine Culture - Preliminary Resulted 01/29/25 11:35 Sputum Gram Stain - Final Resulted 01/29/25 11:35 Sputum Respiratory Culture - Preliminary Resulted 01/27/25 14:15 Blood Blood Culture - Preliminary NO GROWTH AFTER 72 HOURS OF INCUBATION. Resulted 01/23/25 20:14 Lung - Final Resulted 01/23/25 20:14 Lung - Final Resulted 01/23/25 20:14 Lung Pending Resulted 01/23/25 20:14 Lung Pending Resulted 01/23/25 20:14 Lung - Final See Separate Report... 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 Bilateral inguinal hernias extending into the scrotum Severe lumbar disc disease Congestive heart failure Thrombocytopenia Hypernatremia Recommend increase free water for hypernatremia, given worsening CXR yesterday remove 0.45%NACL and use D5 and free water currently on diuretics per pulm, getting breathing trial today, consider CXR if doesnt get extubated Acute kidney injury has improved with medical therapy No indication for dialysis at this time Continue to monitor electrolytes Avoid hypotension Avoid NSAIDs Plan discussed with: Other My Orders My Orders Orders - JOSEPH HAM MD Procedure Category Date Status Time Chest Portable XY 01/31/25 Logged 13:13 Basic Metabolic Panel LAB 02/01/25 Verified 04:00 Complete Blood Count LAB 02/01/25 Verified 04:00 Dietary Evaluation Review Comments: 1) Initiate Nephro-Haritha @ 1 tb qd 2) If patient remains NPO > 7 days, consider EN/TPN to meet at least 75% of estimated daily needs 3) If GI route is preferred, consider Nepro CarbSteady @ 30 mL/hr goal rate as tolerated. EN regimen will provide 1296 kcals. 58g Pro, and 523 mL free H2O per 24 hrs. Goal rate will meet ~ 92% estimated daily energy needs and ~ 43% estimated daily protein needs. 4) Advance to 60g CCHO renal diet when medically feasible, pending ST approal 5) Refer to outpatient RD/CDCES for weight management 6) Follow-up with cardiology, pulmonology, nephrology, gastroenterology, and hepatology 7) Follow-up with manager social work r/t polysubstance abuse 8) Continue to monitor I&O, labs, and skin integrity Expected Outcomes/Goals: 1) patient to receive nutrition support within 7 days of NPO status 2) labs and GI symptoms to improve 3) diet to advance 4) f/u in 2-3 days Critical Care Time (mins): 32 JOSEPH HAM MD Jan 31, 2025 13:32
--- NOTE | 2025-01-31 15:26 | DVH ---
CHEST RADIOGRAPH Indication: intubated Technique: Single frontal view of the chest was obtained Comparison: XY CHEST XRAY 1 VIEW on DOS: 01/30/25, XY CHEST XRAY 1 VIEW on DOS: 01/30/25, XY CHEST XRAY 1 VIEW on DOS: 01/29/25 FINDINGS: Lines and Tubes: ENDOTRACHEAL TUBE IS 2.9 CM ABOVE THE VIN. There is a hemodialysis catheter in pl bay in the right internal jugular vein with the tip in the right atrium. There is a pick line from th e left arm with the tip in the superior vena cava above the right atrium. Lungs: No focal consolidation. Pleura: No effusion. No pneumothorax. Cardiomediastinal contours: Unremarkable Bones: No acute osseous abnormality. IMPRESSION: 1. Endotracheal tube in place 2.9 cm above the vin 2. Hemodialysis catheter in place from the right tip in the right atrium. 3. PICC line from the left arm in place with in the superior vena cava.
--- NOTE | 2025-01-31 17:32 | DVHPN2 ---
Progress Note Date Seen: Jan 31, 2025 Resident Creating Document: NATALY BURNETTE RESIDENT Has the PT tested + for MRSA If YES, has PT been informed?: No Medical Necessity Reason Pt with a Central, PICC or Fol: Yes The following are medically ne: Central Line (Left non tunneled IJ and tunneled right subclavian), Young Catheter Reason for young catheter: Strict I&O Subjective Review of Systems This is a critically ill patient currently intubated and on mechanical ventilation, evaluated at the bedside today by the GI team. The patient is being managed for ongoing sepsis with persistent high-grade fever spikes, and multiple positive cultures have been documented over the past two weeks. * OG tube feeds continued currently on Nepro with Carb Steady at 40 cc/hr, increased to 50 cc/hr as of today for nutritional optimization. * Had four bowel movements yesterday. No bowel movements today no gross blood, melena, or hematochezia reported. * Ongoing recurrent fever spikes. * Patient remains sedated but is weaned off Versed and propofol BRIEF SUMMARY OF TODAYS PROGRESS: * Patient continues to have GI tolerance to tube feeds with regular bowel movements and no GI bleeding. * Still spiking fevers with polymicrobial positive cultures in prior days (Salmonella, E. coli, yeast), requiring careful ongoing antimicrobial stewardship and ID input. * Liver enzymes, previously elevated, are now downtrending, indicating hepatic recovery or resolution of acute insult. * Nepro feed rate increased to 50 cc/hr today for better nutrition delivery. * No abdominal distension or signs of ileus noted. * TPN has been discontinued; enteral nutrition appears adequate. Objective vital signs Vital Sign Date Time Temp Pulse Resp B/P (MAP) Pulse Ox O2 Delivery O2 Flow Rate FiO2 01/31/25 15:54 73 25 117/58 (77) 98 30 01/31/25 14:00 Mechanical Ventilator+ 01/31/25 07:00 99.7 99.7 Total Intake and Output 01/30/25 01/30/25 01/31/25 15:00 23:00 07:00 Intake Total 422.44 ml 1475.916 ml 1696.646 ml Output Total 1400 ml 550 ml Balance 422.44 ml 75.916 ml 1146.646 ml medications Current Medications Medications Dose Ordered Sig/Natividad Route Start Time Stop Time Status Last Admin Dose Admin Midazolam HCl 50 ml @ 1 mls/hr Q24H IV 01/19/25 11:15 01/30/25 15:01 5 MLS/HR Fentanyl Citrate 250 ml @ 2.5 mls/hr Q24H IV 01/19/25 11:15 01/31/25 15:50 22.5 MLS/HR Thiamine HCl 100 mg DAILY IV 01/20/25 10:00 01/31/25 09:37 100 MG Folic Acid 1 mg/ Dextrose 50.2 ml @ 200.8 mls/ hr DAILY INJ 01/20/25 10:00 01/31/25 10:01 200.8 MLS/HR Dextrose 50 ml UD PRN IV 01/19/25 13:15 Diagnostic Test (Pha) 1 strip Q6HR 01/23/25 10:00 01/31/25 12:31 1 STRIP Insulin Human Lispro Q6HR SC 01/23/25 10:00 01/31/25 06:24 1 UNITS Metoclopramide HCl 5 mg Q8HR IV 01/23/25 16:30 01/31/25 14:21 5 MG Norepinephrine Bitartrate 250 ml @ 3.75 mls/hr Q24H IV 01/26/25 14:30 Enteral Nutritional Formula 1,000 ml 50ML/HR GT 01/26/25 17:00 01/31/25 07:06 1,000 ML Sodium Chloride 10 ml QSHIFT@10,22 IV 01/28/25 22:00 01/31/25 09:35 10 ML Lactulose 30 ml DAILY PRN PO 01/30/25 07:00 Pantoprazole Sodium 40 mg DAILY IV 01/30/25 10:00 01/31/25 09:36 40 MG Enoxaparin Sodium 90 mg Q12HR SC 01/30/25 22:00 01/31/25 09:35 90 MG Spironolactone 25 mg DAILY PO 01/31/25 10:00 01/31/25 09:38 25 MG Carvedilol 3.125 mg Q12HR PO 01/31/25 07:15 01/31/25 10:02 3.125 MG Furosemide 40 mg DAILY IV 01/31/25 10:00 01/31/25 09:37 40 MG Acetaminophen 650 mg Q6HP PRN PO 01/31/25 07:15 Purified Water 400 ml Q6HR GT 01/31/25 12:00 01/31/25 12:31 400 ML Levofloxacin/ Dextrose 100 ml @ 100 mls/hr DAILY@1800 IV 01/31/25 18:00 Examination General: Intubated, sedated but hemodynamically stable. * Abdomen: Soft, non-distended, no guarding or rigidity. * Bowel Sounds: Present in all quadrants. laboratory and microbiology Laboratory Tests 01/31/25 03:01 Test 01/31/25 03:01 Range/Units Serum Glucose 176 H 74-106 mg/dL Microbiology Date/Time Source Procedure Growth Status 01/30/25 11:27 Urine - Young Port Urine Culture - Preliminary Resulted 01/29/25 11:35 Sputum Gram Stain - Final Resulted 01/29/25 11:35 Sputum Respiratory Culture - Preliminary Resulted 01/27/25 14:15 Blood Blood Culture - Preliminary NO GROWTH AFTER 72 HOURS OF INCUBATION. Resulted 01/23/25 20:14 Lung - Final Resulted 01/23/25 20:14 Lung - Final Resulted 01/23/25 20:14 Lung Pending Resulted 01/23/25 20:14 Lung Pending Resulted 01/23/25 20:14 Lung - Final See Separate Report... Resulted Problem List/Assessment/Plan Problem List/Assessment/Plan Assessment 1. Upper GI bleeding resolved/stable * No new bleeding; NG aspirate clear; H/H stable. 2. Alcoholic cirrhosis with portal hypertension * MELD remains high; LFTs improving; continue monitoring. 3. Critical illness with gastroparesis improving with prokinetic therapy. 4. Constipation persistent despite regimen, possibly opioid/sedation related. 5. Sepsis with WBC spike on antibiotics; respiratory culture positive for Lelo (likely colonization vs. infection). 6. Enteral feeding well tolerated at 50 mL/hr. Plan GI System Gastrointestinal / Nutrition Continue Nepro 50 cc/hr via OG tube * Target caloric goals and adjust as per RD recommendations. * Monitor for signs of aspiration, diarrhea, distension, and high residuals. * Bowel regimen PRN monitor for diarrhea; stool studies if diarrhea persists >24 hours. * Monitor liver enzymes (ALT, AST, ALP, TBili) daily. * Maintain IV Protonix 40 mg BID for stress ulcer and variceal prophylaxis. * Continue IV Reglan 5 mg q8h to improve gastric motility. * Maintain aspiration precautions (HOB >30). Hepatic * Daily LFTs, INR, ammonia. * Avoid hepatotoxic drugs; monitor for encephalopathy. Case discussed in detail with the attending physician, including the clinical presentation, diagnostic workup, and comprehensive management plan. Plan discussed with: Other (RN) Dietary Evaluation Review Comments: 1) Initiate Nephro-Haritha @ 1 tb qd 2) If patient remains NPO > 7 days, consider EN/TPN to meet at least 75% of estimated daily needs 3) If GI route is preferred, consider Nepro CarbSteady @ 30 mL/hr goal rate as tolerated. EN regimen will provide 1296 kcals. 58g Pro, and 523 mL free H2O per 24 hrs. Goal rate will meet ~ 92% estimated daily energy needs and ~ 43% estimated daily protein needs. 4) Advance to 60g CCHO renal diet when medically feasible, pending ST approal 5) Refer to outpatient RD/CDCES for weight management 6) Follow-up with cardiology, pulmonology, nephrology, gastroenterology, and hepatology 7) Follow-up with social director r/t polysubstance abuse 8) Continue to monitor I&O, labs, and skin integrity Expected Outcomes/Goals: 1) patient to receive nutrition support within 7 days of NPO status 2) labs and GI symptoms to improve 3) diet to advance 4) f/u in 2-3 days NATALY BURNETTE RESIDENT Jan 31, 2025 17:32
--- NOTE | 2025-01-31 20:33 | DVHPNRES ---
Progress Note Date Seen: Jan 31, 2025 Resident Creating Document: SONA HEARD VANESSA Has the PT tested + for MRSA If YES, has PT been informed?: No Medical Necessity Reason Pt with a Central, PICC or Fol: Yes The following are medically ne: Central Line (Left non tunneled IJ and tunneled right subclavian), Young Catheter Reason for young catheter: Strict I&O Subjective Review of Systems Patient is seen and examined at bedside. Patient is intubated and on mechanical ventilation. Objective vital signs Vital Sign Date Time Temp Pulse Resp B/P (MAP) Pulse Ox O2 Delivery O2 Flow Rate FiO2 01/31/25 20:28 82 29 121/64 (83) 98 30 01/31/25 18:00 Mechanical Ventilator+ 01/31/25 18:00 102.4 102.4 Total Intake and Output 01/30/25 01/30/25 01/31/25 15:00 23:00 07:00 Intake Total 422.44 ml 1475.916 ml 1696.646 ml Output Total 1400 ml 550 ml Balance 422.44 ml 75.916 ml 1146.646 ml medications Current Medications Medications Dose Ordered Sig/Natividad Route Start Time Stop Time Status Last Admin Dose Admin Midazolam HCl 50 ml @ 1 mls/hr Q24H IV 01/19/25 11:15 01/30/25 15:01 5 MLS/HR Fentanyl Citrate 250 ml @ 2.5 mls/hr Q24H IV 01/19/25 11:15 01/31/25 15:50 22.5 MLS/HR Thiamine HCl 100 mg DAILY IV 01/20/25 10:00 01/31/25 09:37 100 MG Folic Acid 1 mg/ Dextrose 50.2 ml @ 200.8 mls/ hr DAILY INJ 01/20/25 10:00 01/31/25 10:01 200.8 MLS/HR Dextrose 50 ml UD PRN IV 01/19/25 13:15 Diagnostic Test (Pha) 1 strip Q6HR 01/23/25 10:00 01/31/25 17:34 1 STRIP Insulin Human Lispro Q6HR SC 01/23/25 10:00 01/31/25 17:59 1 UNITS Metoclopramide HCl 5 mg Q8HR IV 01/23/25 16:30 01/31/25 14:21 5 MG Norepinephrine Bitartrate 250 ml @ 3.75 mls/hr Q24H IV 01/26/25 14:30 Enteral Nutritional Formula 1,000 ml 50ML/HR GT 01/26/25 17:00 01/31/25 07:06 1,000 ML Sodium Chloride 10 ml QSHIFT@10,22 IV 01/28/25 22:00 01/31/25 09:35 10 ML Lactulose 30 ml DAILY PRN PO 01/30/25 07:00 Pantoprazole Sodium 40 mg DAILY IV 01/30/25 10:00 01/31/25 09:36 40 MG Enoxaparin Sodium 90 mg Q12HR SC 01/30/25 22:00 01/31/25 09:35 90 MG Spironolactone 25 mg DAILY PO 01/31/25 10:00 01/31/25 09:38 25 MG Carvedilol 3.125 mg Q12HR PO 01/31/25 07:15 01/31/25 10:02 3.125 MG Furosemide 40 mg DAILY IV 01/31/25 10:00 01/31/25 09:37 40 MG Acetaminophen 650 mg Q6HP PRN PO 01/31/25 07:15 Purified Water 400 ml Q6HR GT 01/31/25 12:00 01/31/25 17:34 400 ML Levofloxacin/ Dextrose 100 ml @ 100 mls/hr DAILY@1800 IV 01/31/25 18:00 01/31/25 17:33 100 MLS/HR Examination General: RASS -4, afebrile, mucosae are moist Cardiovascular: Normal S1 and S2. No murmurs, gallops or rubs Respiratory: Mechanically assisted ventilation, equal bilateral airway entree. Clear lung sounds on auscultation Abdomen: Soft, nontender, no organomegaly, normal bowel sounds MSK/skin: Right hand fingers are blue (involve more distal phalanx) and warm, status post right arterial artery exploration, underwent thrombectomy of right radial artery. Neurological: Orientation cannot be assessed. No apparent motor no sensitive deficits. Pupils are isocoric and reactive laboratory and microbiology Laboratory Tests 01/31/25 03:01 Test 01/31/25 03:01 Range/Units Serum Glucose 176 H 74-106 mg/dL Microbiology Date/Time Source Procedure Growth Status 01/30/25 11:27 Urine - Young Port Urine Culture - Preliminary Resulted 01/29/25 11:35 Sputum Gram Stain - Final Resulted 01/29/25 11:35 Sputum Respiratory Culture - Preliminary Resulted 01/27/25 14:15 Blood Blood Culture - Preliminary NO GROWTH AFTER 72 HOURS OF INCUBATION. Resulted 01/23/25 20:14 Lung - Final Resulted 01/23/25 20:14 Lung - Final Resulted 01/23/25 20:14 Lung Pending Resulted 01/23/25 20:14 Lung Pending Resulted 01/23/25 20:14 Lung - Final See Separate Report... Resulted Labs and/or images reviewed: Labs reviewed by me, Image(s) reviewed by me Problem List/Assessment/Plan Problem List/Assessment/Plan This is a 60-year-old male with past medical history of alcohol use disorder, current heavy smoker, gout, dyslipidemia, came to the hospital due to low back pain. On 2nd day of admission, the patient is stabilized, developed AFib and SVT, underwent cardioversion and adenosine was given subsequently, due to respiratory distress and inability to maintain respiratory tract, the patient was sedated, intubated and put on mechanical ventilation. NEURO: Acute metabolic/toxic encephalopathy likely due to sepsis/alcohol use disorder * Sedated, on MV with RASS score -4 * Head CT scan showed no significant intracranial abnormalities CARDIOVASCULAR: ? Cardiogenic shock, likely due to AFib with RVR/SVT Atrial fibrillation with RVR/SVT Acquired coagulopathy ? Acute on chronic Heart failure with reduced ejection fraction NSTEMI, likely type 2 due to above Sinus bradycardia Ruled out Endocarditis * Patient was 2 times reverted to NSR with cardioversion, subsequently put on amiodarone drip for 2 days, discontinued due to regaining sinus rhythm and bradycardia * EKG upon admission showed sinus rhythm with no significant ST or T-wave changes * Subsequent EKGs showed AFib with RVR and SVT, and reverted to normal sinus rhythm by giving amiodarone drip for 2 days * Echo shows, LVEF 45% severe pulmonary hypertension (RVSP 64) * BNP is raised at 450s * CLAUDE on 01/27/2025, normal study PULMONARY: Acute hypoxic respiratory failure, likely due to pneumonia Pneumonia, likely due to Gram-positive/Gram-negative bacteria/viral ? Pulmonary hypertension Possible obstructive sleep apnea Atelectasis * CT scan shows, bilateral small pleural effusion * Chest x-ray shows, closed left costophrenic angle * Bronchoscopy performed on 01/16/2024, had copious amount of mucus on bilateral main bronchus, sample sent for culture * Pulmonology is on the board GASTROINTESTINAL: ? Upper GI bleeding, likely due to liver cirrhosis/portal hypertension Alcohol use disorder Hepatomegaly and hepatic steatosis, likely due to alcohol use disorder Splenomegaly, likely due to above Bilateral indirect inguinal hernia, fatigue content extending to the scrotum Diverticulosis * GI is on the board, recommended medical management at the moment * Thiamine and folic acid GENITOURINARY: JOSE on possible CKD, likely VMN (baseline record not available) * Nephrology on the board, performed 4 session of HD, last session on 01/26/2025, criteria normalized ENDOCRINE: Newly diagnosed Diabetes, with hyperglycemia Dyslipidemia Thyroid nodule Obesity * HBA1c is 6.5 * Lispro subcutaneous q.6 hours METABOLIC: Gout Hypokalemia Hypocalcemia Hypertriglyceridemia, likely due to propofol side effects * Mild hypernatremia HEME: Severe thrombocytopenia, likely due to liver cirrhosis, normalized Mild anemia, normocytic normochromic * Status post transfusion of 1 unit RBC, 1 units FFP, and 1 unit platelet INFECTIOUS DISEASE: ? Septic shock likely due to pneumonia/bacteremia Recurrent spikes of fever Possible drug fever * Blood culture shows Gram-negative right, Salmonella sensitive to ampicillin * Sputum culture shows E coli, sensitive to ampicillin * Vancomycin and cefepime was given for 5 days, DC on 01/15/2025 * Ampicillin IV started on 01/15/2025, due to episodes of fever, ampicillin discontinued on 01/24/2025 * Over 01/16/24, the patient had multiple episodes of fever, patient is started back on vancomycin and meropenem on 01/24/2025, stopped vancomycin on 01/30/25 (given for 6 days) for possible drug fever * Acetaminophen p.r.n. for fever * Sputum culture shows, presumptive Lelo albicans, Fluconazole IV started on 01/27/25 * Consulted infectious disease for fever of unknown origin DERMATOLOGY: Right hand acute PAD/acute limb ischemia possibly due to arterial thrombosis, leading to possible right hand fingertip necrosis * Doppler ultrasound shows no significant arterial disease * Vascular surgeon consulted, performed right radial artery exploration with subsequent performed thrombectomy of the proximal radial artery, due to necrosis of distal phalanges of right hand, planned for amputation MUSCULOSKELETAL: * Chronic back pain, due to severe lumbar disc disease DIET: Nepro 30 mL/hr DVT prophylax: Lovenox therapeutic dose started on 01/30/25 GI prophylaxis: Protonix 40 mg daily Bowel regimen: Lactulose 30 mg daily PRN Code status: Code status discussed with the family (son), full code LINES/DRAINS/ACCESS: * ETT: Intubated on 01/19/2025 * Right subclavian tunneled catheter, placed on 01/26/2020 * Drips: Fentanyl, Versed and propofol, discontinued propofol due to hypertriglyceridemia * Young catheter: Exchanged on 01/30/2025 DISPOSITION: ICU status CPAP trial for tomorrow Patient's status discussed with patient's son, sister, and [id number] at the bedside. Critical care time spent more than 82 minutes, including patient care, chart review, and updating the family. Excluding any procedure. Case discussed with Dr. Chadwick Plan discussed with: Patient, Other My Orders My Orders Orders - SONA HEARD RESDIVIRI Procedure Category Date Status Time Carvedilol Tablet PHA 01/31/25 In Process (Coreg Tablet) 07:15 Furosemide Injection PHA 01/31/25 In Process (Lasix Injection) 10:00 Acetaminophen Tablet PHA 01/31/25 In Process (Tylenol Tablet) 07:15 Free Water PHA 01/31/25 In Process 12:00 Communication Order ORDERS 01/31/25 Transmitted 15:35 Chest Xray 1 View XY 02/01/25 Logged 04:00 Comprehensive LAB 02/01/25 Verified Metabolic Panel 04:00 Abg W/ Co-Ox RT 02/01/25 Logged 04:00 Npo (Nothing By DIET 02/01/25 Transmitted Mouth) Diet Breakfast Dietary Evaluation Review Comments: 1) Initiate Nephro-Haritha @ 1 tb qd 2) If patient remains NPO > 7 days, consider EN/TPN to meet at least 75% of estimated daily needs 3) If GI route is preferred, consider Nepro CarbSteady @ 30 mL/hr goal rate as tolerated. EN regimen will provide 1296 kcals. 58g Pro, and 523 mL free H2O per 24 hrs. Goal rate will meet ~ 92% estimated daily energy needs and ~ 43% estimated daily protein needs. 4) Advance to 60g CCHO renal diet when medically feasible, pending ST approal 5) Refer to outpatient RD/CDCES for weight management 6) Follow-up with cardiology, pulmonology, nephrology, gastroenterology, and hepatology 7) Follow-up with social work coordinator r/t polysubstance abuse 8) Continue to monitor I&O, labs, and skin integrity Expected Outcomes/Goals: 1) patient to receive nutrition support within 7 days of NPO status 2) labs and GI symptoms to improve 3) diet to advance 4) f/u in 2-3 days Date of Service: Jan 31, 2025 Billing Provider: PINA CHADWICK MD Common Visit Codes: 50051-[id number] CARE 30-74 MIN SONA HEARD RESDIVIRI Jan 31, 2025 20:33 PINA CHADWICK MD Feb 05, 2025 20:05
[2025-01-31] MEDS: LACTULOSE 20Gm/30ML SOLN PO PRN (21:39)
--- NOTE | 2025-01-31 22:12 | DVHPN2 ---
Consult Progress Note Date Seen: Jan 31, 2025 Subjective Patient reports: Other (ed to have high fevers temp 101.6 , able to urinate on his own but relatively low urine output and has dialysis catheter in place and on minimal vent ) Objective vital signs Vital Sign Date Time Temp Pulse Resp B/P (MAP) Pulse Ox O2 Delivery O2 Flow Rate FiO2 01/31/25 21:40 80 110/60 01/31/25 20:45 22 98 01/31/25 20:28 30 01/31/25 20:00 102.4 102.4 01/31/25 20:00 Mechanical Ventilator+ Total Intake and Output 01/30/25 01/30/25 01/31/25 15:00 23:00 07:00 Intake Total 422.44 ml 1475.916 ml 1696.646 ml Output Total 1400 ml 550 ml Balance 422.44 ml 75.916 ml 1146.646 ml medications Current Medications Medications Dose Ordered Sig/Natividad Route Start Time Stop Time Status Last Admin Dose Admin Midazolam HCl 50 ml @ 1 mls/hr Q24H IV 01/19/25 11:15 01/30/25 15:01 5 MLS/HR Fentanyl Citrate 250 ml @ 2.5 mls/hr Q24H IV 01/19/25 11:15 01/31/25 15:50 22.5 MLS/HR Thiamine HCl 100 mg DAILY IV 01/20/25 10:00 01/31/25 09:37 100 MG Folic Acid 1 mg/ Dextrose 50.2 ml @ 200.8 mls/ hr DAILY INJ 01/20/25 10:00 01/31/25 10:01 200.8 MLS/HR Dextrose 50 ml UD PRN IV 01/19/25 13:15 Diagnostic Test (Pha) 1 strip Q6HR 01/23/25 10:00 01/31/25 17:34 1 STRIP Insulin Human Lispro Q6HR SC 01/23/25 10:00 01/31/25 17:59 1 UNITS Metoclopramide HCl 5 mg Q8HR IV 01/23/25 16:30 01/31/25 21:39 5 MG Norepinephrine Bitartrate 250 ml @ 3.75 mls/hr Q24H IV 01/26/25 14:30 Enteral Nutritional Formula 1,000 ml 50ML/HR GT 01/26/25 17:00 01/31/25 07:06 1,000 ML Sodium Chloride 10 ml QSHIFT@10,22 IV 01/28/25 22:00 01/31/25 09:35 10 ML Lactulose 30 ml DAILY PRN PO 01/30/25 07:00 01/31/25 21:39 30 ML Pantoprazole Sodium 40 mg DAILY IV 01/30/25 10:00 01/31/25 09:36 40 MG Enoxaparin Sodium 90 mg Q12HR SC 01/30/25 22:00 01/31/25 21:40 90 MG Spironolactone 25 mg DAILY PO 01/31/25 10:00 01/31/25 09:38 25 MG Carvedilol 3.125 mg Q12HR PO 01/31/25 07:15 01/31/25 21:40 3.125 MG Furosemide 40 mg DAILY IV 01/31/25 10:00 01/31/25 09:37 40 MG Acetaminophen 650 mg Q6HP PRN PO 01/31/25 07:15 Purified Water 400 ml Q6HR GT 01/31/25 12:00 01/31/25 17:34 400 ML Levofloxacin/ Dextrose 100 ml @ 100 mls/hr DAILY@1800 IV 01/31/25 18:00 01/31/25 17:33 100 MLS/HR Physical Exam: General: NAD Neck: Supple. No masses. HEENT: PERRL. Normal lids and conjunctiva. Moist mucous membranes. Oropharynx without lesions, exudates or excessive erythema. Normal appearance of the external aspects of the nose and ears. Heart: Regular rhythm, normal rate. No murmur. No lower extremity edema. Lungs: Normal respiratory effort. Clear to auscultation bilaterally. No wheezes. No crackles. Abdomen: Soft. Non-tender. Non-distended. No masses or abdominal hernia. Msk: No digital cyanosis. Normal strength and tone in all 4 limbs Skin: Warm and dry, no rashes. Neuro: Alert. No facial droop or slurred speech. Extra-ocular movements intact. Sensation intact to soft touch in all 4 limbs. Psych: Appropriate mood. Full affect. Oriented to person, place, time, and situation. laboratory and microbiology Laboratory Tests 01/31/25 03:01 Test 01/31/25 03:01 Range/Units Serum Glucose 176 H 74-106 mg/dL Problem List/Assessment/Plan Problems(with codes): (1) Salmonella bacteremia (2) E coli infection (3) Salmonella (4) Septic shock (5) UGIB (upper gastrointestinal bleed) (6) Sepsis, unspecified organism (7) Elevated liver enzymes Problem List/Assessment/Plan ASSESSMENT AND PLAN: ID Problem List: \-- Cirrhosis and septic shock secondary to Salmonella bacteremia \-- E. coli aspiration pneumonia \-- Acute kidney injury, now improving \-- Thrombocytopenia (platelets low, now improving) \-- Severe degenerative lumbar disc disease with foraminal stenosis \-- Chronic alcohol dependence \-- Gout \-- Constipation \-- Poor medical follow-up Assessment: This is a 60-year-old male with a history of gout (not on any medications), chronic heavy alcohol use, and no surgical history, who presented with severe back pain and evidence of systemic infection with complicated clinical course. Patient was admitted for possible complicated urinary tract infection/urosepsis/pyelonephritis, acute kidney injury, and alcohol withdrawal. Notable findings include: severe thrombocytopenia on admission (platelets 53), initial lactic acidosis, and persistently elevated white count. Blood cultures grew Salmonella group D (sensitive to ampicillin and trimethoprim- sulfamethoxazole). Sputum culture grew penicillin-sensitive E. coli. Later, daria was found in the lungs; fluconazole was started. Patient required broad- spectrum antibiotics (initially meropenem and vancomycin), now with plans to deescalate as below. Fevers initially resolved, then recurred. Creatinine acutely increased (peak 5.25), now improved to 1.37; hemoglobin stable. Imaging notable for degenerative severe lumbar disc disease, cardiomegaly with left ventricular dysfunction and severe pulmonary hypertension, bilateral mild effusions, hepatomegaly, hepatosteatosis, and inguinal hernias. 01/31: chest x ray shows worsening right , improving left pilor interstitial opacities suggesting shifting pulmonary edema Plan: - recommending diuresis as tolerated \-- De-escalate antimicrobials: discontinue vancomycin and meropenem and fluconazole; start levofloxacin to complete total 14-day course for Salmonella bacteremia and pneumonia \-- Monitor for recurrent or persistent fevers; if persistent, consider drug fever, catheter-associated thrombosis, or other non-infectious etiology \-- Doppler ultrasound of the right upper and both lower extremities to evaluate for deep vein thrombosis due to swelling \-- If no etiology is found and fevers persist after above measures, consider CT pulmonary angiogram to evaluate for pulmonary embolism \-- Remove hemodialysis line catheter if not currently required \-- Continue aspiration precautions \-- Monitor renal function, platelet count, and hemodynamics \-- Manage constipation as indicated; patient has had several bowel movements since admission \-- Admit for monitoring of alcohol withdrawal and supportive care \-- Continue to evaluate and manage pain related to severe lumbar degenerative disc disease Authorized and Performed by: pastora garza MD Total critical care time: Approximately 76 minutes Due to a high probability of clinically significant, life threatening deterioration, the patient required my highest level of preparedness to intervene emergently and I personally spent this critical care time directly and personally managing the patient. This critical care time included obtaining a history; examining the patient; pulse oximetry; ordering and review of studies; arranging urgent treatment with development of a management plan; evaluation of patient's response to treatment; frequent reassessment; and, discussions with other providers. This critical care time was performed to assess and manage the high probability of imminent, life-threatening deterioration that could result in multi-organ failure. It was exclusive of separately billable procedures and treating other patients and teaching time. Isolation Precautions: Aspiration precautions Plan discussed with: Other Dietary Evaluation Review Comments: 1) Initiate Nephro-Haritha @ 1 tb qd 2) If patient remains NPO > 7 days, consider EN/TPN to meet at least 75% of estimated daily needs 3) If GI route is preferred, consider Nepro CarbSteady @ 30 mL/hr goal rate as tolerated. EN regimen will provide 1296 kcals. 58g Pro, and 523 mL free H2O per 24 hrs. Goal rate will meet ~ 92% estimated daily energy needs and ~ 43% estimated daily protein needs. 4) Advance to 60g CCHO renal diet when medically feasible, pending ST approal 5) Refer to outpatient RD/CDCES for weight management 6) Follow-up with cardiology, pulmonology, nephrology, gastroenterology, and hepatology 7) Follow-up with social services designee r/t polysubstance abuse 8) Continue to monitor I&O, labs, and skin integrity Expected Outcomes/Goals: 1) patient to receive nutrition support within 7 days of NPO status 2) labs and GI symptoms to improve 3) diet to advance 4) f/u in 2-3 days PASTORA GARZA MD Jan 31, 2025 22:12
--- NOTE | 2025-01-31 23:26 | DVHPN2 ---
Progress Note - Dictate Date Seen: Jan 31, 2025 Has the PT tested + for MRSA If YES, has PT been informed?: No Medical Necessity Reason Pt with a Central, PICC or Fol: Yes The following are medically ne: Central Line (Left non tunneled IJ and tunneled right subclavian), Young Catheter Reason for young catheter: Strict I&O Subjective [facility] Patient seen and examined at bedside. intubated on mechanical ventilator. Overnight events reviewed. vital signs Vital Sign Date Time Temp Pulse Resp B/P (MAP) Pulse Ox O2 Delivery O2 Flow Rate FiO2 01/31/25 22:33 80 24 127/67 (87) 98 30 01/31/25 20:00 102.4 102.4 01/31/25 20:00 Mechanical Ventilator+ Total Intake and Output 01/30/25 01/30/25 01/31/25 15:00 23:00 07:00 Intake Total 422.44 ml 1475.916 ml 1696.646 ml Output Total 1400 ml 550 ml Balance 422.44 ml 75.916 ml 1146.646 ml medications Current Medications Medications Dose Ordered Sig/Natividad Route Start Time Stop Time Status Last Admin Dose Admin Midazolam HCl 50 ml @ 1 mls/hr Q24H IV 01/19/25 11:15 01/30/25 15:01 5 MLS/HR Fentanyl Citrate 250 ml @ 2.5 mls/hr Q24H IV 01/19/25 11:15 01/31/25 15:50 22.5 MLS/HR Thiamine HCl 100 mg DAILY IV 01/20/25 10:00 01/31/25 09:37 100 MG Folic Acid 1 mg/ Dextrose 50.2 ml @ 200.8 mls/ hr DAILY INJ 01/20/25 10:00 01/31/25 10:01 200.8 MLS/HR Dextrose 50 ml UD PRN IV 01/19/25 13:15 Diagnostic Test (Pha) 1 strip Q6HR 01/23/25 10:00 01/31/25 17:34 1 STRIP Insulin Human Lispro Q6HR SC 01/23/25 10:00 01/31/25 17:59 1 UNITS Metoclopramide HCl 5 mg Q8HR IV 01/23/25 16:30 01/31/25 21:39 5 MG Norepinephrine Bitartrate 250 ml @ 3.75 mls/hr Q24H IV 01/26/25 14:30 Enteral Nutritional Formula 1,000 ml 50ML/HR GT 01/26/25 17:00 01/31/25 07:06 1,000 ML Sodium Chloride 10 ml QSHIFT@10,22 IV 01/28/25 22:00 01/31/25 09:35 10 ML Lactulose 30 ml DAILY PRN PO 01/30/25 07:00 01/31/25 21:39 30 ML Pantoprazole Sodium 40 mg DAILY IV 01/30/25 10:00 01/31/25 09:36 40 MG Enoxaparin Sodium 90 mg Q12HR SC 01/30/25 22:00 01/31/25 21:40 90 MG Spironolactone 25 mg DAILY PO 01/31/25 10:00 01/31/25 09:38 25 MG Carvedilol 3.125 mg Q12HR PO 01/31/25 07:15 01/31/25 21:40 3.125 MG Furosemide 40 mg DAILY IV 01/31/25 10:00 01/31/25 09:37 40 MG Acetaminophen 650 mg Q6HP PRN PO 01/31/25 07:15 Purified Water 400 ml Q6HR GT 01/31/25 12:00 01/31/25 17:34 400 ML Levofloxacin/ Dextrose 100 ml @ 100 mls/hr DAILY@1800 IV 01/31/25 18:00 01/31/25 17:33 100 MLS/HR objective Gen.: Patient lying in bed in medical ICU. Intubated on mechanical ventilator. Head: Normocephalic, atraumatic. Eyes: PERRLA. Ears: Normal external anatomy. Throat: Endotracheal tube and orogastric tube in place. Neck: Supple, trachea midline. Chest: Transmitted breath sounds bilaterally. Decreased air entry bilaterally. No wheezing. Bibasilar crackles. Cardiovascular: Positive S1, positive S2. Regular rate and rhythm. Abdomen: Positive bowel sounds in all 4 quadrants. Soft, nontender, nondistended. : Young in place. Normal external genitalia. Rectal: Deferred. Skin: Warm, dry. Intact. Extremities: 2+ radial pulses bilaterally. No lower extremity edema. Neuro: Off sedation laboratory and microbiology Laboratory Tests 01/31/25 03:01 Test 01/31/25 03:01 Range/Units Serum Glucose 176 H 74-106 mg/dL Assessment/Plan Impression: Acute hypoxic respiratory failure On mechanical ventilator Sepsis ESRD, on hemodialysis Obesity, BMI 34.7 Events: Remains on vent support Vent settings: AC mode; RR 20, VT 500, PEEP 5, FiO2 30% Taper FiO2 as tolerated ABG reviewed, compensated. RUE venous duplex revealed no DVT in right upper extremity Taper sedation CPAP in AM with PS 8, PEEP of 5. Continue antibiotics Patient continues to spike fevers. WBC currently 11.3 K. Vascular Surgery recommendations appreciated. Continue antifungal Blood pressure control Hemodialysis per Nephrology Monitor renal function Monitor electrolytes. Supplement as necessary. Hypernatremia - Na of 154 Monitor ins and outs. Accu-Cheks, ISS. Tube feeds for nutritional support Discussed with Dr. Lorenz. CT abdomen-pelvis reviewed; Scattered fluid-filled small bowel loops; mild colonic diverticulosis; moderate retained stool in the colon. Moderate dependent consolidations in the bilateral lobes with air bronchograms likely atelectasis, though pneumonia (which can be on the basis of aspiration) is an additional consideration. Mild hepatosplenomegaly. Gastric tube terminates in the gastric fundus. S/p therapeutic bronchoscopy with RML BAL (01/23); cleared mucous plugging from L6-L10 and R1-R10. Sent for bacterial, fungal and viral cultures - follow up results. Limited chest ultrasound on 01/23 revealed compressive atelectasis. Consolidated lung. No pleural effusion noted. Please see separate procedure notes for details Labs and imaging reviewed. Rest of plan as noted below. Plan: s/p intubation on mechanical ventilator. Vent settings: AC mode; RR 20, VT 500, PEEP 5, FiO2 30% Titrate FIO2 to keep O2 saturation above 90%. VAP bundle. Daily ABG and CXR while intubated Off sedation Antibiotics. F/u cultures - Blood culture positive; bacteremia w/ Salmonella species. Repeat blood cultures show no growth Pressors as necessary for hemodynamic support. Titrate to keep MAP greater than 65 mmHg. S/p right radial thrombectomy by Vascular Surgery Possible plan for digit amputation by Vascular Surgery. Monitor hemoglobin Accu-Cheks, ISS PRN. HD per Nephrology Monitor renal function Monitor electrolytes. Supplement as necessary. Monitor ins and outs. Maintain euvolemia Wound care Diet and lifestyle modifications for weight reduction Obesity - complicates all care GI/DVT prophylaxis. Prognosis: Poor given patient's multiple co-morbidities. Condition: Critical Rest of plan per hospitalist and other consultants. A total of 35 minutes of critical care time was spent reviewing the patient record, examining the patient, making a diagnostic and therapeutic plan, discussing this plan with the medical personnel, following up on diagnostic studies and following the patient for clinical stability excluding any and all procedures. At least 50% of this time was spent in direct, [id number] contact. Thank you Dr. Dai for allowing me to participate in this patient's care. Further recommendations will depend on the patient's clinical course. Please do not hesitate to contact me if you have any questions or concerns. This medical document was created using an electronic medical record system with [employer] dictation system. Although these documentations are being carefully reviewed, there may still be some phonetic and typographical changes. The errors are purely typographical, due to imperfection on the software program, and do not reflect any compromise in the patient's medical care. Dietary Evaluation Review Comments: 1) Initiate Nephro-Haritha @ 1 tb qd 2) If patient remains NPO > 7 days, consider EN/TPN to meet at least 75% of estimated daily needs 3) If GI route is preferred, consider Nepro CarbSteady @ 30 mL/hr goal rate as tolerated. EN regimen will provide 1296 kcals. 58g Pro, and 523 mL free H2O per 24 hrs. Goal rate will meet ~ 92% estimated daily energy needs and ~ 43% estimated daily protein needs. 4) Advance to 60g CCHO renal diet when medically feasible, pending ST approal 5) Refer to outpatient RD/CDCES for weight management 6) Follow-up with cardiology, pulmonology, nephrology, gastroenterology, and hepatology 7) Follow-up with social sciences instructor r/t polysubstance abuse 8) Continue to monitor I&O, labs, and skin integrity Expected Outcomes/Goals: 1) patient to receive nutrition support within 7 days of NPO status 2) labs and GI symptoms to improve 3) diet to advance 4) f/u in 2-3 days Plan discussed with: Patient, Other (DENISSE Peters/Dr. Lorenz) ITM GE MD Jan 31, 2025 23:26
[2025-02-01] VITALS (112 sets, daily range): BP systolic 107–165; BP diastolic 54–85; PULSE 70–126; RESP 13–47; TEMP 100.3–102.8; O2SAT 80–100
--- NOTE | 2025-02-01 03:14 | DVH ---
CHEST RADIOGRAPH Indication: Pneumonia Technique: Single frontal view of the chest was obtained Comparison: XY CHEST PORTABLE on DOS: 01/31/25, XY CHEST XRAY 1 VIEW on DOS: 01/30/25, XY CHEST XRAY 1 EW on DOS: 01/30/25 IMPRESSION: Heart is stable in size. Support lines and tubes appear unchanged in satisfactory position. Mild pul monary vascular congestion. No focal airspace opacity, effusion, or pneumothorax. No significant int erval change.
[2025-02-01 03:44] LABS: Hematocrit 32.4 % (41.0-53.0); Hemoglobin 10.8 g/dL (13.5-17.5); Mean Corpuscular Hemoglobin 28.9 pg (28.0-32.0); Mean Corpuscular Volume 86.7 fL (80.0-100.0); Nucleated Red Blood Cells % 0.3 %
[2025-02-01 03:47] LABS: Anion Gap 10 (5-15); BUN/Creatinine Ratio 37.8 (10.0-20.0); Calcium 9.0 mg/dL (8.7-10.4); Carbon Dioxide 29 mmol/L (20-31); Potassium 4.0 mmol/L (3.5-5.1); Total Protein 5.9 g/dL (5.7-8.2)
[2025-02-01 03:48] LABS: Bilirubin, Total 0.5 mg/dL (0.2-1.0)
[2025-02-01 03:52] LABS: Alanine Aminotransferase 46 U/L (7-40); Albumin 3.1 g/dL (3.2-4.8); Alkaline Phosphatase 265 U/L (46-116); Blood Urea Nitrogen 42 mg/dL (9-23); Chloride 114 mmol/L (98-107); Glucose 166 mg/dL (74-106); Sodium 153 mmol/L (136-145)
[2025-02-01 09:12] LABS: Base Excess 1.4 mmol/L (-2.0-3.0)
[2025-02-01] MEDS: DEXMEDETOMIDINE HCL IN D5W 100 ML IV SCH (12:30)
--- NOTE | 2025-02-01 15:28 | DVHPN2 ---
Progress Note Date Seen: Feb 01, 2025 Resident Creating Document: NATALY BURNETTE RESIDENT Has the PT tested + for MRSA If YES, has PT been informed?: No Medical Necessity Reason Pt with a Central, PICC or Fol: Yes The following are medically ne: Central Line (Left non tunneled IJ and tunneled right subclavian), Young Catheter Reason for young catheter: Strict I&O Subjective Review of Systems This is a critically ill patient currently intubated and on mechanical ventilation, evaluated at the bedside today by the GI team. The patient is being managed for ongoing sepsis with persistent high-grade fever spikes, and multiple positive cultures have been documented over the past two weeks. * OG tube feeds continued currently on Nepro with Carb Steady at 50 cc/hr, for nutritional optimization. * Had 2 bowel movements TODAY no gross blood, melena, or hematochezia reported. * Ongoing recurrent fever spikes. * Patient remains sedated but is weaned off Versed and propofol BRIEF SUMMARY OF TODAYS PROGRESS: * Patient continues to have GI tolerance to tube feeds with regular bowel movements and no GI bleeding. * Still spiking fevers with polymicrobial positive cultures in prior days (Salmonella, E. coli, yeast), requiring careful ongoing antimicrobial stewardship and ID input. * Liver enzymes remain elevated this is consistent with sepsis associated hepatocellular injury likely superimposed on chronic liver disease due to alcohol-related cirrhosis. * Nepro feed rate increased to 50 cc/hr today for better nutrition delivery. * No abdominal distension or signs of ileus noted. CPAP trials ongoing, but patient has not yet regained full consciousness or responsiveness post sedation. Objective vital signs Vital Sign Date Time Temp Pulse Resp B/P (MAP) Pulse Ox O2 Delivery O2 Flow Rate FiO2 02/01/25 15:00 81 29 149/80 (103) 100 02/01/25 14:19 30 02/01/25 14:18 Mechanical Ventilator+ 02/01/25 14:15 102.0 102.0 Total Intake and Output 01/31/25 01/31/25 02/01/25 15:00 23:00 07:00 Intake Total 1175.2 ml 767.5 ml 1042.5 ml Output Total 1750 ml 900 ml Balance 1175.2 ml -982.5 ml 142.5 ml medications Current Medications Medications Dose Ordered Sig/Natividad Route Start Time Stop Time Status Last Admin Dose Admin Midazolam HCl 50 ml @ 1 mls/hr Q24H IV 01/19/25 11:15 01/30/25 15:01 5 MLS/HR Thiamine HCl 100 mg DAILY IV 01/20/25 10:00 02/01/25 10:20 100 MG Folic Acid 1 mg/ Dextrose 50.2 ml @ 200.8 mls/ hr DAILY INJ 01/20/25 10:00 02/01/25 10:22 200.8 MLS/HR Dextrose 50 ml UD PRN IV 01/19/25 13:15 Diagnostic Test (Pha) 1 strip Q6HR 01/23/25 10:00 02/01/25 11:25 1 STRIP Insulin Human Lispro Q6HR SC 01/23/25 10:00 02/01/25 00:16 1 UNITS Metoclopramide HCl 5 mg Q8HR IV 01/23/25 16:30 02/01/25 14:24 5 MG Norepinephrine Bitartrate 250 ml @ 3.75 mls/hr Q24H IV 01/26/25 14:30 Enteral Nutritional Formula 1,000 ml 50ML/HR GT 01/26/25 17:00 01/31/25 07:06 1,000 ML Sodium Chloride 10 ml QSHIFT@10,22 IV 01/28/25 22:00 02/01/25 10:21 10 ML Lactulose 30 ml DAILY PRN PO 01/30/25 07:00 01/31/25 21:39 30 ML Pantoprazole Sodium 40 mg DAILY IV 01/30/25 10:00 02/01/25 10:19 40 MG Enoxaparin Sodium 90 mg Q12HR SC 01/30/25 22:00 02/01/25 10:20 90 MG Spironolactone 25 mg DAILY PO 01/31/25 10:00 02/01/25 10:20 25 MG Carvedilol 3.125 mg Q12HR PO 01/31/25 07:15 02/01/25 10:20 3.125 MG Furosemide 40 mg DAILY IV 01/31/25 10:00 02/01/25 10:20 40 MG Acetaminophen 650 mg Q6HP PRN PO 01/31/25 07:15 Purified Water 400 ml Q6HR GT 01/31/25 12:00 02/01/25 12:00 400 ML Levofloxacin/ Dextrose 100 ml @ 100 mls/hr DAILY@1800 IV 01/31/25 18:00 01/31/25 17:33 100 MLS/HR Examination General: Intubated, sedated but hemodynamically stable. * Abdomen: Soft, non-distended, no guarding or rigidity. * Bowel Sounds: Present in all quadrants. laboratory and microbiology Laboratory Tests 02/01/25 02:43 Test 02/01/25 02:43 Range/Units Serum Glucose 166 H 74-106 mg/dL Microbiology Date/Time Source Procedure Growth Status 01/30/25 11:27 Urine - Young Port Urine Culture - Final Complete 01/29/25 11:35 Sputum Gram Stain - Final Complete 01/29/25 11:35 Sputum Respiratory Culture - Final Complete 01/27/25 14:15 Blood Blood Culture - Final NO GROWTH AFTER 5 DAYS OF INCUBATION. Complete 01/23/25 20:14 Lung - Final Resulted 01/23/25 20:14 Lung - Final Resulted 01/23/25 20:14 Lung Pending Resulted 01/23/25 20:14 Lung Pending Resulted 01/23/25 20:14 Lung - Final See Separate Report... Resulted Problem List/Assessment/Plan Problem List/Assessment/Plan Assessment 1. Upper GI bleeding resolved/stable * No new bleeding; NG aspirate clear; H/H stable. 2. Alcoholic cirrhosis with portal hypertension, chronic liver disease * MELD remains high; LFTs elevated; continue monitoring. 2.Sepsis associated hepatic dysfunction 3. Critical illness with gastroparesis improving with prokinetic therapy. 4. Constipation persistent despite regimen, possibly opioid/sedation related. 5. Sepsis with WBC spike on antibiotics; respiratory culture positive for Lelo (likely colonization vs. infection). 6. Enteral feeding well tolerated at 50 mL/hr. Plan GI System Gastrointestinal / Nutrition Continue Nepro 50 cc/hr via OG tube * Target caloric goals and adjust as per RD recommendations. * Monitor for signs of aspiration, diarrhea, distension, and high residuals. * Bowel regimen PRN monitor for diarrhea; stool studies if diarrhea persists >24 hours. * Monitor liver enzymes (ALT, AST, ALP, TBili) daily. Consider RUQ ultrasound if LFTs continues to raise or bilirubin raises. * Maintain IV Protonix 40 mg BID for stress ulcer and variceal prophylaxis. * Continue IV Reglan 5 mg q8h to improve gastric motility. * Maintain aspiration precautions (HOB >30). Hepatic * Daily LFTs, INR, ammonia, platelets * Avoid hepatotoxic drugs; monitor for encephalopathy. Case discussed in detail with the attending physician, including the clinical presentation, diagnostic workup, and comprehensive management plan. Plan discussed with: Other (RN) Dietary Evaluation Review Comments: 1) Initiate Nephro-Haritha @ 1 tb qd 2) If patient remains NPO > 7 days, consider EN/TPN to meet at least 75% of estimated daily needs 3) If GI route is preferred, consider Nepro CarbSteady @ 30 mL/hr goal rate as tolerated. EN regimen will provide 1296 kcals. 58g Pro, and 523 mL free H2O per 24 hrs. Goal rate will meet ~ 92% estimated daily energy needs and ~ 43% estimated daily protein needs. 4) Advance to 60g CCHO renal diet when medically feasible, pending ST approal 5) Refer to outpatient RD/CDCES for weight management 6) Follow-up with cardiology, pulmonology, nephrology, gastroenterology, and hepatology 7) Follow-up with social work professor r/t polysubstance abuse 8) Continue to monitor I&O, labs, and skin integrity Expected Outcomes/Goals: 1) patient to receive nutrition support within 7 days of NPO status 2) labs and GI symptoms to improve 3) diet to advance 4) f/u in 2-3 days NATALY BURNETTE RESIDENT Feb 01, 2025 15:28
--- NOTE | 2025-02-01 18:36 | DVHPNRES ---
Progress Note Date Seen: Feb 01, 2025 Resident Creating Document: SONA HEARD VANESSA Has the PT tested + for MRSA If YES, has PT been informed?: No Medical Necessity Reason Pt with a Central, PICC or Fol: Yes The following are medically ne: Central Line (Left non tunneled IJ and tunneled right subclavian), Young Catheter Reason for young catheter: Strict I&O Subjective Review of Systems Patient is seen and examined at bedside, intubated and on mechanical ventilation. Objective vital signs Vital Sign Date Time Temp Pulse Resp B/P (MAP) Pulse Ox O2 Delivery O2 Flow Rate FiO2 02/01/25 18:24 77 31 143/77 (99) 98 30 02/01/25 17:50 Mechanical Ventilator+ 02/01/25 17:00 100.6 100.6 Total Intake and Output 01/31/25 01/31/25 02/01/25 15:00 23:00 07:00 Intake Total 1175.2 ml 767.5 ml 1042.5 ml Output Total 1750 ml 900 ml Balance 1175.2 ml -982.5 ml 142.5 ml medications Current Medications Medications Dose Ordered Sig/Natividad Route Start Time Stop Time Status Last Admin Dose Admin Midazolam HCl 50 ml @ 1 mls/hr Q24H IV 01/19/25 11:15 01/30/25 15:01 5 MLS/HR Thiamine HCl 100 mg DAILY IV 01/20/25 10:00 02/01/25 10:20 100 MG Folic Acid 1 mg/ Dextrose 50.2 ml @ 200.8 mls/ hr DAILY INJ 01/20/25 10:00 02/01/25 10:22 200.8 MLS/HR Dextrose 50 ml UD PRN IV 01/19/25 13:15 Diagnostic Test (Pha) 1 strip Q6HR 01/23/25 10:00 02/01/25 17:03 1 STRIP Insulin Human Lispro Q6HR SC 01/23/25 10:00 02/01/25 17:05 1 UNITS Metoclopramide HCl 5 mg Q8HR IV 01/23/25 16:30 02/01/25 14:24 5 MG Norepinephrine Bitartrate 250 ml @ 3.75 mls/hr Q24H IV 01/26/25 14:30 Enteral Nutritional Formula 1,000 ml 50ML/HR GT 01/26/25 17:00 01/31/25 07:06 1,000 ML Sodium Chloride 10 ml QSHIFT@10,22 IV 01/28/25 22:00 02/01/25 10:21 10 ML Lactulose 30 ml DAILY PRN PO 01/30/25 07:00 01/31/25 21:39 30 ML Pantoprazole Sodium 40 mg DAILY IV 01/30/25 10:00 02/01/25 10:19 40 MG Enoxaparin Sodium 90 mg Q12HR SC 01/30/25 22:00 02/01/25 10:20 90 MG Spironolactone 25 mg DAILY PO 01/31/25 10:00 02/01/25 10:20 25 MG Carvedilol 3.125 mg Q12HR PO 01/31/25 07:15 02/01/25 10:20 3.125 MG Furosemide 40 mg DAILY IV 01/31/25 10:00 02/01/25 10:20 40 MG Acetaminophen 650 mg Q6HP PRN PO 01/31/25 07:15 Purified Water 400 ml Q6HR GT 01/31/25 12:00 02/01/25 17:03 400 ML Levofloxacin/ Dextrose 100 ml @ 100 mls/hr DAILY@1800 IV 01/31/25 18:00 02/01/25 17:03 100 MLS/HR Examination General: RASS -3, afebrile, mucosae are moist Cardiovascular: Normal S1 and S2. No murmurs, gallops or rubs Respiratory: Mechanically assisted ventilation, equal bilateral airway entree. Clear lung sounds on auscultation Abdomen: Soft, nontender, no organomegaly, normal bowel sounds MSK/skin: Mobilization of limbs cannot be evaluated. Skin is dry and warm. Neurological: Orientation cannot be assessed. No apparent motor no sensitive deficits. Pupils are isocoric and reactive laboratory and microbiology Laboratory Tests 02/01/25 02:43 Test 02/01/25 02:43 Range/Units Serum Glucose 166 H 74-106 mg/dL Microbiology Date/Time Source Procedure Growth Status 01/30/25 11:27 Urine - Young Port Urine Culture - Final Complete 01/29/25 11:35 Sputum Gram Stain - Final Complete 01/29/25 11:35 Sputum Respiratory Culture - Final Complete 01/27/25 14:15 Blood Blood Culture - Final NO GROWTH AFTER 5 DAYS OF INCUBATION. Complete 01/23/25 20:14 Lung - Final Resulted 01/23/25 20:14 Lung - Final Resulted 01/23/25 20:14 Lung Pending Resulted 01/23/25 20:14 Lung Pending Resulted 01/23/25 20:14 Lung - Final See Separate Report... Resulted Labs and/or images reviewed: Labs reviewed by me, Image(s) reviewed by me Problem List/Assessment/Plan Problem List/Assessment/Plan This is a 60-year-old male with past medical history of alcohol use disorder, current heavy smoker, gout, dyslipidemia, came to the hospital due to low back pain. On 2nd day of admission, the patient is stabilized, developed AFib and SVT, underwent cardioversion and adenosine was given subsequently, due to respiratory distress and inability to maintain respiratory tract, the patient was sedated, intubated and put on mechanical ventilation. NEURO: Acute metabolic/toxic encephalopathy likely due to sepsis/alcohol use disorder * Sedated, on MV with RASS score -4 * Head CT scan showed no significant intracranial abnormalities CARDIOVASCULAR: ? Cardiogenic shock, likely due to AFib with RVR/SVT Atrial fibrillation with RVR/SVT Acquired coagulopathy ? Acute on chronic Heart failure with reduced ejection fraction NSTEMI, likely type 2 due to above Sinus bradycardia Ruled out Endocarditis * Patient was 2 times reverted to NSR with cardioversion, subsequently put on amiodarone drip for 2 days, discontinued due to regaining sinus rhythm and bradycardia * EKG upon admission showed sinus rhythm with no significant ST or T-wave changes * Subsequent EKGs showed AFib with RVR and SVT, and reverted to normal sinus rhythm by giving amiodarone drip for 2 days * Echo shows, LVEF 45% severe pulmonary hypertension (RVSP 64) * BNP is raised at 450s * CLAUDE on 01/27/2025, normal study PULMONARY: Acute hypoxic respiratory failure, likely due to pneumonia Pneumonia, likely due to Gram-positive/Gram-negative bacteria/viral ? Pulmonary hypertension Possible obstructive sleep apnea Atelectasis * CT scan shows, bilateral small pleural effusion * Chest x-ray shows, closed left costophrenic angle * Bronchoscopy performed on 01/16/2024, had copious amount of mucus on bilateral main bronchus, sample sent for culture * Pulmonology is on the board GASTROINTESTINAL: ? Upper GI bleeding, likely due to liver cirrhosis/portal hypertension Alcohol use disorder Hepatomegaly and hepatic steatosis, likely due to alcohol use disorder Splenomegaly, likely due to above Bilateral indirect inguinal hernia, fatigue content extending to the scrotum Diverticulosis * GI is on the board, recommended medical management at the moment * Thiamine and folic acid GENITOURINARY: JOSE on possible CKD, likely VMN (baseline record not available) * Nephrology on the board, performed 4 session of HD, last session on 01/26/2025, criteria normalized ENDOCRINE: Newly diagnosed Diabetes, with hyperglycemia Dyslipidemia Thyroid nodule Obesity * HBA1c is 6.5 * Lispro subcutaneous q.6 hours METABOLIC: Gout Hypokalemia Hypocalcemia Hypertriglyceridemia, likely due to propofol side effects * Mild hypernatremia HEME: Severe thrombocytopenia, likely due to liver cirrhosis, normalized Mild anemia, normocytic normochromic * Status post transfusion of 1 unit RBC, 1 units FFP, and 1 unit platelet INFECTIOUS DISEASE: ? Septic shock likely due to pneumonia/bacteremia Recurrent spikes of fever Possible drug fever * Blood culture shows Gram-negative right, Salmonella sensitive to ampicillin * Sputum culture shows E coli, sensitive to ampicillin * Vancomycin and cefepime was given for 5 days, DC on 01/15/2025 * Ampicillin IV started on 01/15/2025, due to episodes of fever, ampicillin discontinued on 01/24/2025 * Over 01/16/24, the patient had multiple episodes of fever, patient is started back on vancomycin and meropenem on 01/24/2025, stopped vancomycin on 01/30/25 (given for 6 days) for possible drug fever * Acetaminophen p.r.n. for fever * Sputum culture shows, presumptive Lelo albicans, Fluconazole IV started on 01/27/25 * Consulted infectious disease for fever of unknown origin DERMATOLOGY: Right hand acute PAD/acute limb ischemia possibly due to arterial thrombosis, leading to possible right hand fingertip necrosis * Doppler ultrasound shows no significant arterial disease * Vascular surgeon consulted, performed right radial artery exploration with subsequent performed thrombectomy of the proximal radial artery, due to necrosis of distal phalanges of right hand, planned for amputation MUSCULOSKELETAL: * Chronic back pain, due to severe lumbar disc disease DIET: Nepro 30 mL/hr DVT prophylax: Lovenox therapeutic dose started on 01/30/25 GI prophylaxis: Protonix 40 mg daily Bowel regimen: Lactulose 30 mg daily PRN Code status: Code status discussed with the family (son), full code LINES/DRAINS/ACCESS: * ETT: Intubated on 01/19/2025 * Right subclavian tunneled catheter, placed on 01/26/2020 * Drips: Fentanyl, Versed and propofol, discontinued propofol due to hypertriglyceridemia * Young catheter: Exchanged on 01/30/2025 DISPOSITION: ICU status CPAP trial tried, patient was weaned from sedation, but patient could not wake up. Patient's status discussed with patient's son, sister, and [id number] at the bedside. Critical care time spent more than 82 minutes, including patient care, chart review, and updating the family. Excluding any procedure. Case discussed with Dr. Chadwick Plan discussed with: Patient, Other (RN) My Orders My Orders Orders - SONA HEARD RESDIVIRI Procedure Category Date Status Time Chest Xray 1 View XY 02/01/25 Resulted 04:00 Abg W/ Co-Ox RT 02/01/25 Logged 04:00 Npo (Nothing By DIET 02/01/25 Transmitted Mouth) Diet Breakfast Dexmedetomidine Hcl PHA 02/01/25 In Process In D5w (Precedex) 12:30 Complete Blood Count LAB 02/02/25 Verified 04:00 Comprehensive LAB 02/02/25 Verified Metabolic Panel 04:00 Abg W/ Co-Ox RT 02/02/25 Logged 04:00 Chest Xray 1 View XY 02/02/25 Logged 04:00 Dietary Evaluation Review Comments: 1) Initiate Nephro-Haritha @ 1 tb qd 2) If patient remains NPO > 7 days, consider EN/TPN to meet at least 75% of estimated daily needs 3) If GI route is preferred, consider Nepro CarbSteady @ 30 mL/hr goal rate as tolerated. EN regimen will provide 1296 kcals. 58g Pro, and 523 mL free H2O per 24 hrs. Goal rate will meet ~ 92% estimated daily energy needs and ~ 43% estimated daily protein needs. 4) Advance to 60g CCHO renal diet when medically feasible, pending ST approal 5) Refer to outpatient RD/CDCES for weight management 6) Follow-up with cardiology, pulmonology, nephrology, gastroenterology, and hepatology 7) Follow-up with social media senior associate r/t polysubstance abuse 8) Continue to monitor I&O, labs, and skin integrity Expected Outcomes/Goals: 1) patient to receive nutrition support within 7 days of NPO status 2) labs and GI symptoms to improve 3) diet to advance 4) f/u in 2-3 days Date of Service: Feb 01, 2025 Billing Provider: PINA CHADWICK MD Common Visit Codes: [id number] CARE 30-74 MIN SONA HEARD Feb 01, 2025 18:36 PINA CHADWICK MD Feb 05, 2025 20:08
--- NOTE | 2025-02-01 21:21 | DVHPN2 ---
Progress Note Date Seen: Feb 01, 2025 Has the PT tested + for MRSA If YES, has PT been informed?: No Medical Necessity Reason Pt with a Central, PICC or Fol: Yes The following are medically ne: Central Line (Left non tunneled IJ and tunneled right subclavian), Young Catheter Reason for young catheter: Strict I&O Subjective Patient reports: Other (no events) Review of Systems: Deferred Objective vital signs Vital Sign Date Time Temp Pulse Resp B/P (MAP) Pulse Ox O2 Delivery O2 Flow Rate FiO2 02/01/25 20:09 72 32 150/66 (94) 100 30 02/01/25 17:50 Mechanical Ventilator+ 02/01/25 17:00 100.6 100.6 Total Intake and Output 01/31/25 01/31/25 02/01/25 15:00 23:00 07:00 Intake Total 1175.2 ml 767.5 ml 1042.5 ml Output Total 1750 ml 900 ml Balance 1175.2 ml -982.5 ml 142.5 ml medications Current Medications Medications Dose Ordered Sig/Natividad Route Start Time Stop Time Status Last Admin Dose Admin Midazolam HCl 50 ml @ 1 mls/hr Q24H IV 01/19/25 11:15 01/30/25 15:01 5 MLS/HR Thiamine HCl 100 mg DAILY IV 01/20/25 10:00 02/01/25 10:20 100 MG Folic Acid 1 mg/ Dextrose 50.2 ml @ 200.8 mls/ hr DAILY INJ 01/20/25 10:00 02/01/25 10:22 200.8 MLS/HR Dextrose 50 ml UD PRN IV 01/19/25 13:15 Diagnostic Test (Pha) 1 strip Q6HR 01/23/25 10:00 02/01/25 17:03 1 STRIP Insulin Human Lispro Q6HR SC 01/23/25 10:00 02/01/25 17:05 1 UNITS Metoclopramide HCl 5 mg Q8HR IV 01/23/25 16:30 02/01/25 14:24 5 MG Norepinephrine Bitartrate 250 ml @ 3.75 mls/hr Q24H IV 01/26/25 14:30 Enteral Nutritional Formula 1,000 ml 50ML/HR GT 01/26/25 17:00 01/31/25 07:06 1,000 ML Sodium Chloride 10 ml QSHIFT@10,22 IV 01/28/25 22:00 02/01/25 10:21 10 ML Lactulose 30 ml DAILY PRN PO 01/30/25 07:00 01/31/25 21:39 30 ML Pantoprazole Sodium 40 mg DAILY IV 01/30/25 10:00 02/01/25 10:19 40 MG Enoxaparin Sodium 90 mg Q12HR SC 01/30/25 22:00 02/01/25 10:20 90 MG Spironolactone 25 mg DAILY PO 01/31/25 10:00 02/01/25 10:20 25 MG Carvedilol 3.125 mg Q12HR PO 01/31/25 07:15 02/01/25 10:20 3.125 MG Furosemide 40 mg DAILY IV 01/31/25 10:00 02/01/25 10:20 40 MG Acetaminophen 650 mg Q6HP PRN PO 01/31/25 07:15 Purified Water 400 ml Q6HR GT 01/31/25 12:00 02/01/25 17:03 400 ML Levofloxacin/ Dextrose 100 ml @ 100 mls/hr DAILY@1800 IV 01/31/25 18:00 02/01/25 17:03 100 MLS/HR Examination: GENERAL:Abnormal, LUNGS:Abnormal, MSK:Abnormal, NEURO:Abnormal laboratory and microbiology Laboratory Tests 02/01/25 02:43 Test 02/01/25 02:43 Range/Units Serum Glucose 166 H 74-106 mg/dL Microbiology Date/Time Source Procedure Growth Status 01/30/25 11:27 Urine - Young Port Urine Culture - Final Complete 01/29/25 11:35 Sputum Gram Stain - Final Complete 01/29/25 11:35 Sputum Respiratory Culture - Final Complete 01/27/25 14:15 Blood Blood Culture - Final NO GROWTH AFTER 5 DAYS OF INCUBATION. Complete 01/23/25 20:14 Lung - Final Resulted 01/23/25 20:14 Lung - Final Resulted 01/23/25 20:14 Lung Pending Resulted 01/23/25 20:14 Lung Pending Resulted 01/23/25 20:14 Lung - Final See Separate Report... 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 EN regimen will provide 1296 kcals. 58g Pro, and 523 mL free H2O per 24 hrs. Goal rate will meet ~ 92% estimated daily energy needs and ~ 43% estimated daily protein needs. 4) Advance to 60g CCHO renal diet when medically feasible, pending ST approal 5) Refer to outpatient RD/CDCES for weight management 6) Follow-up with cardiology, pulmonology, nephrology, gastroenterology, and hepatology 7) Follow-up with mental health social worker r/t polysubstance abuse 8) Continue to monitor I&O, labs, and skin integrity Expected Outcomes/Goals: 1) patient to receive nutrition support within 7 days of NPO status 2) labs and GI symptoms to improve 3) diet to advance 4) f/u in 2-3 days CAMERON HOLLOWAY MD Feb 01, 2025 21:20
[2025-02-01] MEDS: FREE WATER GT SCH (22:59)
--- NOTE | 2025-02-01 23:16 | DVHPN2 ---
Progress Note - Dictate Date Seen: Feb 01, 2025 Has the PT tested + for MRSA If YES, has PT been informed?: No Medical Necessity Reason Pt with a Central, PICC or Fol: Yes The following are medically ne: Central Line (Left non tunneled IJ and tunneled right subclavian), Young Catheter Reason for young catheter: Strict I&O Subjective [facility] Patient seen and examined at bedside. intubated on mechanical ventilator. Overnight events reviewed. vital signs Vital Sign Date Time Temp Pulse Resp B/P (MAP) Pulse Ox O2 Delivery O2 Flow Rate FiO2 02/01/25 22:17 73 28 147/85 (105) 100 30 02/01/25 17:50 Mechanical Ventilator+ 02/01/25 17:00 100.6 100.6 Total Intake and Output 01/31/25 01/31/25 02/01/25 15:00 23:00 07:00 Intake Total 1175.2 ml 767.5 ml 1042.5 ml Output Total 1750 ml 900 ml Balance 1175.2 ml -982.5 ml 142.5 ml medications Current Medications Medications Dose Ordered Sig/Natividad Route Start Time Stop Time Status Last Admin Dose Admin Midazolam HCl 50 ml @ 1 mls/hr Q24H IV 01/19/25 11:15 01/30/25 15:01 5 MLS/HR Thiamine HCl 100 mg DAILY IV 01/20/25 10:00 02/01/25 10:20 100 MG Folic Acid 1 mg/ Dextrose 50.2 ml @ 200.8 mls/ hr DAILY INJ 01/20/25 10:00 02/01/25 10:22 200.8 MLS/HR Dextrose 50 ml UD PRN IV 01/19/25 13:15 Diagnostic Test (Pha) 1 strip Q6HR 01/23/25 10:00 02/01/25 17:03 1 STRIP Insulin Human Lispro Q6HR SC 01/23/25 10:00 02/01/25 17:05 1 UNITS Metoclopramide HCl 5 mg Q8HR IV 01/23/25 16:30 02/01/25 14:24 5 MG Norepinephrine Bitartrate 250 ml @ 3.75 mls/hr Q24H IV 01/26/25 14:30 Enteral Nutritional Formula 1,000 ml 50ML/HR GT 01/26/25 17:00 01/31/25 07:06 1,000 ML Sodium Chloride 10 ml QSHIFT@10,22 IV 01/28/25 22:00 02/01/25 10:21 10 ML Lactulose 30 ml DAILY PRN PO 01/30/25 07:00 01/31/25 21:39 30 ML Pantoprazole Sodium 40 mg DAILY IV 01/30/25 10:00 02/01/25 10:19 40 MG Enoxaparin Sodium 90 mg Q12HR SC 01/30/25 22:00 02/01/25 10:20 90 MG Spironolactone 25 mg DAILY PO 01/31/25 10:00 02/01/25 10:20 25 MG Carvedilol 3.125 mg Q12HR PO 01/31/25 07:15 02/01/25 10:20 3.125 MG Furosemide 40 mg DAILY IV 01/31/25 10:00 02/01/25 10:20 40 MG Acetaminophen 650 mg Q6HP PRN PO 01/31/25 07:15 Levofloxacin/ Dextrose 100 ml @ 100 mls/hr DAILY@1800 IV 01/31/25 18:00 02/01/25 17:03 100 MLS/HR Purified Water 400 ml Q4HR GT 02/01/25 22:00 objective Gen.: Patient lying in bed in medical ICU. Intubated on mechanical ventilator. Head: Normocephalic, atraumatic. Eyes: PERRLA. Ears: Normal external anatomy. Throat: Endotracheal tube and orogastric tube in place. Neck: Supple, trachea midline. Chest: Transmitted breath sounds bilaterally. Decreased air entry bilaterally. No wheezing. Bibasilar crackles. Cardiovascular: Positive S1, positive S2. Regular rate and rhythm. Abdomen: Positive bowel sounds in all 4 quadrants. Soft, nontender, nondistended. : Young in place. Normal external genitalia. Rectal: Deferred. Skin: Warm, dry. Fingers on right hand are noted to be blackened. Extremities: 2+ radial pulses bilaterally. No lower extremity edema. Neuro: Off sedation laboratory and microbiology Laboratory Tests 02/01/25 02:43 Test 02/01/25 02:43 Range/Units Serum Glucose 166 H 74-106 mg/dL Assessment/Plan Impression: Acute hypoxic respiratory failure On mechanical ventilator Sepsis ESRD, on hemodialysis Obesity, BMI 34.7 Events: Remains on vent support Vent settings: AC mode; RR 20, VT 500, PEEP 5, FiO2 30% Taper FiO2 as tolerated ABG reviewed, compensated. CXR reveals Mild pulmonary vascular congestion. No focal airspace opacity, effusion, or pneumothorax. Remains off sedation CPAP once awake, alert and following commands. Plan for CPAP with PS 8, PEEP of 5. OK to increase PS to max 20 cmH2O to achieve tidal volume 400-500 mL. Precedex OK for agitation Complete antibiotics Recurrent fevers. WBC stable at 11.7 K. Vascular Surgery recommendations appreciated. Continue antifungal Blood pressure control Hemodialysis per Nephrology Monitor renal function Monitor electrolytes. Supplement as necessary. Hypernatremia - Na of 150 On free water. Monitor ins and outs. Accu-Cheks, ISS. Tube feeds for nutritional support RUE venous duplex revealed no DVT in right upper extremity CT abdomen-pelvis reviewed; Scattered fluid-filled small bowel loops; mild colonic diverticulosis; moderate retained stool in the colon. Moderate dependent consolidations in the bilateral lobes with air bronchograms likely atelectasis, though pneumonia (which can be on the basis of aspiration) is an additional consideration. Mild hepatosplenomegaly. Gastric tube terminates in the gastric fundus. S/p therapeutic bronchoscopy with RML BAL (01/23); cleared mucous plugging from L6-L10 and R1-R10. Sent for bacterial, fungal and viral cultures - follow up results. Limited chest ultrasound on 01/23 revealed compressive atelectasis. Consolidated lung. No pleural effusion noted. Please see separate procedure notes for details Labs and imaging reviewed. Rest of plan as noted below. Plan: s/p intubation on mechanical ventilator. Vent settings: AC mode; RR 20, VT 500, PEEP 5, FiO2 30% Titrate FIO2 to keep O2 saturation above 90%. VAP bundle. Daily ABG and CXR while intubated Off sedation Antibiotics. F/u cultures - Blood culture positive; bacteremia w/ Salmonella species. Repeat blood cultures show no growth Pressors as necessary for hemodynamic support. Titrate to keep MAP greater than 65 mmHg. S/p right radial thrombectomy by Vascular Surgery Possible plan for digit amputation by Vascular Surgery. Monitor hemoglobin Accu-Cheks, ISS PRN. HD per Nephrology Monitor renal function Monitor electrolytes. Supplement as necessary. Monitor ins and outs. Maintain euvolemia Wound care SBT/MIKAYLA. Diet and lifestyle modifications for weight reduction Obesity - complicates all care GI/DVT prophylaxis. Prognosis: Poor given patient's multiple co-morbidities. Condition: Critical Rest of plan per hospitalist and other consultants. A total of 35 minutes of critical care time was spent reviewing the patient record, examining the patient, making a diagnostic and therapeutic plan, discussing this plan with the medical personnel, following up on diagnostic studies and following the patient for clinical stability excluding any and all procedures. At least 50% of this time was spent in direct, [id number] contact. Thank you Dr. Dai for allowing me to participate in this patient's care. Further recommendations will depend on the patient's clinical course. Please do not hesitate to contact me if you have any questions or concerns. This medical document was created using an electronic medical record system with [employer] dictation system. Although these documentations are being carefully reviewed, there may still be some phonetic and typographical changes. The errors are purely typographical, due to imperfection on the software program, and do not reflect any compromise in the patient's medical care. Dietary Evaluation Review Comments: 1) Initiate Nephro-Haritha @ 1 tb qd 2) If patient remains NPO > 7 days, consider EN/TPN to meet at least 75% of estimated daily needs 3) If GI route is preferred, consider Nepro CarbSteady @ 30 mL/hr goal rate as tolerated. EN regimen will provide 1296 kcals. 58g Pro, and 523 mL free H2O per 24 hrs. Goal rate will meet ~ 92% estimated daily energy needs and ~ 43% estimated daily protein needs. 4) Advance to 60g CCHO renal diet when medically feasible, pending ST approal 5) Refer to outpatient RD/CDCES for weight management 6) Follow-up with cardiology, pulmonology, nephrology, gastroenterology, and hepatology 7) Follow-up with social and human services assistant r/t polysubstance abuse 8) Continue to monitor I&O, labs, and skin integrity Expected Outcomes/Goals: 1) patient to receive nutrition support within 7 days of NPO status 2) labs and GI symptoms to improve 3) diet to advance 4) f/u in 2-3 days Plan discussed with: Other (DENISSE De Anda) Critical Care Time(min): 35 TIM GE MD Feb 01, 2025 23:16
[2025-02-02] VITALS (107 sets, daily range): BP systolic 100–157; BP diastolic 55–84; PULSE 63–73; RESP 16–37; TEMP 98.1–100.4; O2SAT 95–100
[2025-02-02 03:17] LABS: Hematocrit 31.9 % (41.0-53.0); Hemoglobin 10.4 g/dL (13.5-17.5); Mean Corpuscular Hemoglobin 28.1 pg (28.0-32.0); Mean Corpuscular Volume 85.9 fL (80.0-100.0); Nucleated Red Blood Cells % 0.2 %
[2025-02-02 03:20] LABS: Anion Gap 11 (5-15); BUN/Creatinine Ratio 37.9 (10.0-20.0); Bilirubin, Total 0.8 mg/dL (0.2-1.0); Calcium 9.2 mg/dL (8.7-10.4); Carbon Dioxide 28 mmol/L (20-31); Magnesium 2.1 mg/dL (1.6-2.6); Potassium 3.7 mmol/L (3.5-5.1); Total Protein 6.0 g/dL (5.7-8.2)
[2025-02-02 03:27] LABS: Alanine Aminotransferase 55 U/L (7-40); Albumin 3.2 g/dL (3.2-4.8); Alkaline Phosphatase 254 U/L (46-116); Blood Urea Nitrogen 39 mg/dL (9-23); Chloride 111 mmol/L (98-107); Glucose 153 mg/dL (74-106); Sodium 150 mmol/L (136-145)
--- NOTE | 2025-02-02 05:49 | DVH ---
CHEST RADIOGRAPH Indication: chest x ray Technique: Single frontal view of the chest was obtained COMPARISON: XY CHEST XRAY 1 VIEW on DOS: 02/01/25, XY CHEST PORTABLE on DOS: 01/31/25, XY CHEST XRAY 1 EW on DOS: 01/30/25, XY CHEST XRAY 1 VIEW on DOS: 01/30/25, XY CHEST XRAY 1 VIEW on DOS: 01/29/25 FINDINGS: Lines and Tubes: Endotracheal tube, enteric catheter and right tunneled central venous catheter in sa tisfactory position Lungs: Congestion Pleura: No effusion. No pneumothorax. Cardiomediastinal contours: Unremarkable Bones: Unremarkable IMPRESSION: Lines and tubes in satisfactory position. No significant interval change.
[2025-02-02 07:53] LABS: Base Excess 1.7 mmol/L (-2.0-3.0)
--- NOTE | 2025-02-02 12:33 | DVHPN2 ---
Progress Note Date Seen: Feb 02, 2025 Resident Creating Document: NATALY BURNETTE RESIDENT Has the PT tested + for MRSA If YES, has PT been informed?: No Medical Necessity Reason Pt with a Central, PICC or Fol: Yes The following are medically ne: Central Line (Left non tunneled IJ and tunneled right subclavian), Young Catheter Reason for young catheter: Strict I&O Subjective Review of Systems Today's progress The patient is undergoing CPAP trials today and has been off sedation since 8:00 a.m. on February 01, 2025. He is opening his eyes spontaneously, but not following commands. Enteral nutrition is being provided via NG tube with Nepro at 50 mL/hour, well tolerated. The patient had 1 bowel movement today. No evidence of GI bleeding. Liver enzymes are trending down. Plan for dialysis today due to JOSE and ongoing encephalopathy likely multifactorial, including metabolic and hepatic comprehensive. Objective vital signs Vital Sign Date Time Temp Pulse Resp B/P (MAP) Pulse Ox O2 Delivery O2 Flow Rate FiO2 02/02/25 12:00 99.7 67 28 110/69 (83) 100 211.5 02/02/25 12:00 Mechanical Ventilator+ 30 30 Total Intake and Output 02/01/25 02/01/25 02/02/25 15:00 23:00 07:00 Intake Total 50.2 ml 900 ml 1600 ml Output Total 1650 ml 800 ml Balance 50.2 ml -750 ml 800 ml medications Current Medications Medications Dose Ordered Sig/Natividad Route Start Time Stop Time Status Last Admin Dose Admin Midazolam HCl 50 ml @ 1 mls/hr Q24H IV 01/19/25 11:15 01/30/25 15:01 5 MLS/HR Thiamine HCl 100 mg DAILY IV 01/20/25 10:00 02/02/25 09:54 100 MG Folic Acid 1 mg/ Dextrose 50.2 ml @ 200.8 mls/ hr DAILY INJ 01/20/25 10:00 02/02/25 09:56 200.8 MLS/HR Dextrose 50 ml UD PRN IV 01/19/25 13:15 Diagnostic Test (Pha) 1 strip Q6HR 01/23/25 10:00 02/02/25 11:57 1 STRIP Insulin Human Lispro Q6HR SC 01/23/25 10:00 02/01/25 23:17 1 UNITS Metoclopramide HCl 5 mg Q8HR IV 01/23/25 16:30 02/02/25 05:32 5 MG Norepinephrine Bitartrate 250 ml @ 3.75 mls/hr Q24H IV 01/26/25 14:30 Enteral Nutritional Formula 1,000 ml 50ML/HR GT 01/26/25 17:00 01/31/25 07:06 1,000 ML Sodium Chloride 10 ml QSHIFT@10,22 IV 01/28/25 22:00 02/02/25 09:54 10 ML Lactulose 30 ml DAILY PRN PO 01/30/25 07:00 01/31/25 21:39 30 ML Pantoprazole Sodium 40 mg DAILY IV 01/30/25 10:00 02/02/25 09:54 40 MG Enoxaparin Sodium 90 mg Q12HR SC 01/30/25 22:00 02/02/25 09:53 90 MG Spironolactone 25 mg DAILY PO 01/31/25 10:00 02/02/25 09:53 25 MG Carvedilol 3.125 mg Q12HR PO 01/31/25 07:15 02/02/25 09:53 3.125 MG Furosemide 40 mg DAILY IV 01/31/25 10:00 02/02/25 09:54 40 MG Acetaminophen 650 mg Q6HP PRN PO 01/31/25 07:15 Levofloxacin/ Dextrose 100 ml @ 100 mls/hr DAILY@1800 IV 01/31/25 18:00 02/01/25 17:03 100 MLS/HR Purified Water 400 ml Q4HR GT 02/01/25 22:00 02/02/25 09:56 400 ML Examination General: Intubated, sedated but hemodynamically stable. * Abdomen: Soft, non-distended, no guarding or rigidity. * Bowel Sounds: Present in all quadrants. laboratory and microbiology Laboratory Tests 02/02/25 02:26 Test 02/02/25 02:26 Range/Units Serum Glucose 153 H 74-106 mg/dL Microbiology Date/Time Source Procedure Growth Status 01/30/25 11:27 Urine - Young Port Urine Culture - Final Complete 01/29/25 11:35 Sputum Gram Stain - Final Complete 01/29/25 11:35 Sputum Respiratory Culture - Final Complete 01/27/25 14:15 Blood Blood Culture - Final NO GROWTH AFTER 5 DAYS OF INCUBATION. Complete 01/23/25 20:14 Lung - Final Resulted 01/23/25 20:14 Lung - Final Resulted 01/23/25 20:14 Lung Pending Resulted 01/23/25 20:14 Lung Pending Resulted 01/23/25 20:14 Lung - Final See Separate Report... Resulted Problem List/Assessment/Plan Problem List/Assessment/Plan Assessment 1. Upper GI bleeding resolved/stable * No new bleeding; NG aspirate clear; H/H stable. 2. Alcoholic cirrhosis with portal hypertension, chronic liver disease * MELD remains high; LFTs elevated; continue monitoring. 2.Sepsis associated hepatic dysfunction 3. Critical illness with gastroparesis improving with prokinetic therapy. 4. Constipation persistent despite regimen, possibly opioid/sedation related. 5. Sepsis with WBC spike on antibiotics; respiratory culture positive for Lelo (likely colonization vs. infection). 6. Enteral feeding well tolerated at 50 mL/hr. Plan GI System Gastrointestinal / Nutrition Continue Nepro 50 cc/hr via OG tube * Target caloric goals and adjust as per RD recommendations. * Monitor for signs of aspiration, diarrhea, distension, and high residuals. * Bowel regimen PRN monitor for diarrhea; stool studies if diarrhea persists >24 hours. * Monitor liver enzymes (ALT, AST, ALP, TBili) daily. Consider RUQ ultrasound if LFTs continues to raise or bilirubin raises. * Maintain IV Protonix 40 mg BID for stress ulcer and variceal prophylaxis. * Continue IV Reglan 5 mg q8h to improve gastric motility. * Maintain aspiration precautions (HOB >30). Hepatic * Daily LFTs, INR, ammonia, platelets * Avoid hepatotoxic drugs; monitor for encephalopathy. Case discussed in detail with the attending physician, including the clinical presentation, diagnostic workup, and comprehensive management plan. Plan discussed with: Other (RN) Dietary Evaluation Review Comments: 1) Initiate Nephro-Haritha @ 1 tb qd 2) If patient remains NPO > 7 days, consider EN/TPN to meet at least 75% of estimated daily needs 3) If GI route is preferred, consider Nepro CarbSteady @ 30 mL/hr goal rate as tolerated. EN regimen will provide 1296 kcals. 58g Pro, and 523 mL free H2O per 24 hrs. Goal rate will meet ~ 92% estimated daily energy needs and ~ 43% estimated daily protein needs. 4) Advance to 60g CCHO renal diet when medically feasible, pending ST approal 5) Refer to outpatient RD/[facility] for weight management 6) Follow-up with cardiology, pulmonology, nephrology, gastroenterology, and hepatology 7) Follow-up with social service coordinator r/t polysubstance abuse 8) Continue to monitor I&O, labs, and skin integrity Expected Outcomes/Goals: 1) patient to receive nutrition support within 7 days of NPO status 2) labs and GI symptoms to improve 3) diet to advance 4) f/u in 2-3 days NATALY BURNETTE RESIDENT Feb 02, 2025 12:33
--- NOTE | 2025-02-02 16:53 | DVHPN2 ---
Consult Progress Note Date Seen: Feb 02, 2025 Subjective Patient reports: Other (on Cpap trials , continues to have temps up to 100.4 . taken off sedation to see if patient will wake . hypoxia appears to be improving ) Objective vital signs Vital Sign Date Time Temp Pulse Resp B/P (MAP) Pulse Ox O2 Delivery O2 Flow Rate FiO2 02/02/25 16:30 100.2 71 32 119/61 (80) 100 212.4 02/02/25 16:00 Mechanical Ventilator+ 30 30 Total Intake and Output 02/01/25 02/01/25 02/02/25 15:00 23:00 07:00 Intake Total 50.2 ml 900 ml 1600 ml Output Total 1650 ml 800 ml Balance 50.2 ml -750 ml 800 ml medications Current Medications Medications Dose Ordered Sig/Natividad Route Start Time Stop Time Status Last Admin Dose Admin Midazolam HCl 50 ml @ 1 mls/hr Q24H IV 01/19/25 11:15 01/30/25 15:01 5 MLS/HR Thiamine HCl 100 mg DAILY IV 01/20/25 10:00 02/02/25 09:54 100 MG Folic Acid 1 mg/ Dextrose 50.2 ml @ 200.8 mls/ hr DAILY INJ 01/20/25 10:00 02/02/25 09:56 200.8 MLS/HR Dextrose 50 ml UD PRN IV 01/19/25 13:15 Diagnostic Test (Pha) 1 strip Q6HR 01/23/25 10:00 02/02/25 11:57 1 STRIP Insulin Human Lispro Q6HR SC 01/23/25 10:00 02/01/25 23:17 1 UNITS Metoclopramide HCl 5 mg Q8HR IV 01/23/25 16:30 02/02/25 13:46 5 MG Norepinephrine Bitartrate 250 ml @ 3.75 mls/hr Q24H IV 01/26/25 14:30 Enteral Nutritional Formula 1,000 ml 50ML/HR GT 01/26/25 17:00 01/31/25 07:06 1,000 ML Sodium Chloride 10 ml QSHIFT@10,22 IV 01/28/25 22:00 02/02/25 09:54 10 ML Lactulose 30 ml DAILY PRN PO 01/30/25 07:00 01/31/25 21:39 30 ML Pantoprazole Sodium 40 mg DAILY IV 01/30/25 10:00 02/02/25 09:54 40 MG Enoxaparin Sodium 90 mg Q12HR SC 01/30/25 22:00 02/02/25 09:53 90 MG Spironolactone 25 mg DAILY PO 01/31/25 10:00 02/02/25 09:53 25 MG Carvedilol 3.125 mg Q12HR PO 01/31/25 07:15 02/02/25 09:53 3.125 MG Furosemide 40 mg DAILY IV 01/31/25 10:00 02/02/25 09:54 40 MG Acetaminophen 650 mg Q6HP PRN PO 01/31/25 07:15 Levofloxacin/ Dextrose 100 ml @ 100 mls/hr DAILY@1800 IV 01/31/25 18:00 02/01/25 17:03 100 MLS/HR Purified Water 400 ml Q4HR GT 02/01/25 22:00 02/02/25 13:46 400 ML Physical Exam: General: NAD Neck: Supple. No masses. HEENT: PERRL. Normal lids and conjunctiva. Moist mucous membranes. Oropharynx without lesions, exudates or excessive erythema. Normal appearance of the external aspects of the nose and ears. Heart: Regular rhythm, normal rate. No murmur. No lower extremity edema. Lungs: Normal respiratory effort. Clear to auscultation bilaterally. No wheezes. No crackles. Abdomen: Soft. Non-tender. Non-distended. No masses or abdominal hernia. Msk: No digital cyanosis. Normal strength and tone in all 4 limbs Skin: Warm and dry, no rashes. Neuro: Alert. No facial droop or slurred speech. Extra-ocular movements intact. Sensation intact to soft touch in all 4 limbs. Psych: Appropriate mood. Full affect. Oriented to person, place, time, and situation. laboratory and microbiology Laboratory Tests 02/02/25 02:26 Test 02/02/25 02:26 Range/Units Serum Glucose 153 H 74-106 mg/dL Problem List/Assessment/Plan Problems(with codes): (1) Salmonella bacteremia (2) E coli infection (3) Salmonella (4) Septic shock (5) UGIB (upper gastrointestinal bleed) (6) Sepsis, unspecified organism Problem List/Assessment/Plan ASSESSMENT AND PLAN: ID Problem List: \-- Cirrhosis and septic shock secondary to Salmonella bacteremia \-- E. coli aspiration pneumonia \-- Acute kidney injury, now improving \-- Thrombocytopenia (platelets low, now improving) \-- Severe degenerative lumbar disc disease with foraminal stenosis \-- Chronic alcohol dependence \-- Gout \-- Constipation \-- Poor medical follow-up Assessment: This is a 60-year-old male with a history of gout (not on any medications), chronic heavy alcohol use, and no surgical history, who presented with severe back pain and evidence of systemic infection with complicated clinical course. Patient was admitted for possible complicated urinary tract infection/urosepsis/pyelonephritis, acute kidney injury, and alcohol withdrawal. Notable findings include: severe thrombocytopenia on admission (platelets 53), initial lactic acidosis, and persistently elevated white count. Blood cultures grew Salmonella group D (sensitive to ampicillin and trimethoprim- sulfamethoxazole). Sputum culture grew penicillin-sensitive E. coli. Later, daria was found in the lungs; fluconazole was started. Patient required broad- spectrum antibiotics (initially meropenem and vancomycin), now with plans to deescalate as below. Fevers initially resolved, then recurred. Creatinine acutely increased (peak 5.25), now improved to 1.37; hemoglobin stable. Imaging notable for degenerative severe lumbar disc disease, cardiomegaly with left ventricular dysfunction and severe pulmonary hypertension, bilateral mild effusions, hepatomegaly, hepatosteatosis, and inguinal hernias. 01/31: chest x ray shows worsening right , improving left pilor interstitial opacities suggesting shifting pulmonary edema 02/01: patient is getting started on tube feeds and tolerating them and having good urine output through folley cath 02/02: creatinine at 1.03 , liver enzymes are slowly up trending on levofloxacin therapy , will continue to monitor Plan: - check EKG in 5 days on levoquin therapy - recommending diuresis as tolerated \-- De-escalate antimicrobials: discontinue vancomycin and meropenem and fluconazole; start levofloxacin to complete total 14-day course for Salmonella bacteremia and pneumonia \-- Monitor for recurrent or persistent fevers; if persistent, consider drug fever, catheter-associated thrombosis, or other non-infectious etiology \-- Doppler ultrasound of the right upper and both lower extremities to evaluate for deep vein thrombosis due to swelling \-- If no etiology is found and fevers persist after above measures, consider CT pulmonary angiogram to evaluate for pulmonary embolism \-- Remove hemodialysis line catheter if not currently required \-- Continue aspiration precautions \-- Monitor renal function, platelet count, and hemodynamics \-- Manage constipation as indicated; patient has had several bowel movements since admission \-- Admit for monitoring of alcohol withdrawal and supportive care \-- Continue to evaluate and manage pain related to severe lumbar degenerative disc disease Authorized and Performed by: pastora garza MD Total critical care time: Approximately 76 minutes Due to a high probability of clinically significant, life threatening deterioration, the patient required my highest level of preparedness to intervene emergently and I personally spent this critical care time directly and personally managing the patient. This critical care time included obtaining a history; examining the patient; pulse oximetry; ordering and review of studies; arranging urgent treatment with development of a management plan; evaluation of patient's response to treatment; frequent reassessment; and, discussions with other providers. This critical care time was performed to assess and manage the high probability of imminent, life-threatening deterioration that could result in multi-organ failure. It was exclusive of separately billable procedures and treating other patients and teaching time. Isolation Precautions: Aspiration precautions Plan discussed with: Other Dietary Evaluation Review Comments: 1) Initiate Nephro-Haritha @ 1 tb qd 2) If patient remains NPO > 7 days, consider EN/TPN to meet at least 75% of estimated daily needs 3) If GI route is preferred, consider Nepro CarbSteady @ 30 mL/hr goal rate as tolerated. EN regimen will provide 1296 kcals. 58g Pro, and 523 mL free H2O per 24 hrs. Goal rate will meet ~ 92% estimated daily energy needs and ~ 43% estimated daily protein needs. 4) Advance to 60g CCHO renal diet when medically feasible, pending ST approal 5) Refer to outpatient RD/[facility] for weight management 6) Follow-up with cardiology, pulmonology, nephrology, gastroenterology, and hepatology 7) Follow-up with social worker psychiatric r/t polysubstance abuse 8) Continue to monitor I&O, labs, and skin integrity Expected Outcomes/Goals: 1) patient to receive nutrition support within 7 days of NPO status 2) labs and GI symptoms to improve 3) diet to advance 4) f/u in 2-3 days PASTORA GARZA MD Feb 02, 2025 16:53
--- NOTE | 2025-02-02 17:41 | DVHPN2 ---
Progress Note Date Seen: Feb 02, 2025 Has the PT tested + for MRSA If YES, has PT been informed?: No Medical Necessity Reason Pt with a Central, PICC or Fol: Yes The following are medically ne: Central Line (Left non tunneled IJ and tunneled right subclavian), Young Catheter Reason for young catheter: Strict I&O Subjective Review of Systems: RESPIRATORY:Abnormal Objective vital signs Vital Sign Date Time Temp Pulse Resp B/P (MAP) Pulse Ox O2 Delivery O2 Flow Rate FiO2 02/02/25 16:30 100.2 71 32 119/61 (80) 100 212.4 02/02/25 16:00 Mechanical Ventilator+ 30 30 Total Intake and Output 02/01/25 02/01/25 02/02/25 15:00 23:00 07:00 Intake Total 50.2 ml 900 ml 1600 ml Output Total 1650 ml 800 ml Balance 50.2 ml -750 ml 800 ml medications Current Medications Medications Dose Ordered Sig/Natividad Route Start Time Stop Time Status Last Admin Dose Admin Midazolam HCl 50 ml @ 1 mls/hr Q24H IV 01/19/25 11:15 01/30/25 15:01 5 MLS/HR Thiamine HCl 100 mg DAILY IV 01/20/25 10:00 02/02/25 09:54 100 MG Folic Acid 1 mg/ Dextrose 50.2 ml @ 200.8 mls/ hr DAILY INJ 01/20/25 10:00 02/02/25 09:56 200.8 MLS/HR Dextrose 50 ml UD PRN IV 01/19/25 13:15 Diagnostic Test (Pha) 1 strip Q6HR 01/23/25 10:00 02/02/25 11:57 1 STRIP Insulin Human Lispro Q6HR SC 01/23/25 10:00 02/01/25 23:17 1 UNITS Metoclopramide HCl 5 mg Q8HR IV 01/23/25 16:30 02/02/25 13:46 5 MG Norepinephrine Bitartrate 250 ml @ 3.75 mls/hr Q24H IV 01/26/25 14:30 Enteral Nutritional Formula 1,000 ml 50ML/HR GT 01/26/25 17:00 02/02/25 17:38 1,000 ML Sodium Chloride 10 ml QSHIFT@10,22 IV 01/28/25 22:00 02/02/25 09:54 10 ML Lactulose 30 ml DAILY PRN PO 01/30/25 07:00 01/31/25 21:39 30 ML Pantoprazole Sodium 40 mg DAILY IV 01/30/25 10:00 02/02/25 09:54 40 MG Enoxaparin Sodium 90 mg Q12HR SC 01/30/25 22:00 02/02/25 09:53 90 MG Spironolactone 25 mg DAILY PO 01/31/25 10:00 02/02/25 09:53 25 MG Carvedilol 3.125 mg Q12HR PO 01/31/25 07:15 02/02/25 09:53 3.125 MG Furosemide 40 mg DAILY IV 01/31/25 10:00 02/02/25 09:54 40 MG Acetaminophen 650 mg Q6HP PRN PO 01/31/25 07:15 Levofloxacin/ Dextrose 100 ml @ 100 mls/hr DAILY@1800 IV 01/31/25 18:00 02/01/25 17:03 100 MLS/HR Purified Water 400 ml Q4HR GT 02/01/25 22:00 02/02/25 13:46 400 ML Examination: GENERAL:Abnormal, LUNGS:Abnormal laboratory and microbiology Laboratory Tests 02/02/25 02:26 Test 02/02/25 02:26 Range/Units Serum Glucose 153 H 74-106 mg/dL Microbiology Date/Time Source Procedure Growth Status 01/30/25 11:27 Urine - Young Port Urine Culture - Final Complete 01/29/25 11:35 Sputum Gram Stain - Final Complete 01/29/25 11:35 Sputum Respiratory Culture - Final Complete 01/27/25 14:15 Blood Blood Culture - Final NO GROWTH AFTER 5 DAYS OF INCUBATION. Complete 01/23/25 20:14 Lung - Final Resulted 01/23/25 20:14 Lung - Final Resulted 01/23/25 20:14 Lung - Preliminary Resulted 01/23/25 20:14 Lung - Preliminary Resulted 01/23/25 20:14 Lung - Final See Separate Report... 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 Bilateral inguinal hernias extending into the scrotum Severe lumbar disc disease Congestive heart failure Thrombocytopenia Hypernatremia Patient neurologically has not met adequate parameters for extubation. Unfortunately patient's sedation medications used propofol and Versed are highly protein bound and are not dialyzable. Continue to promote urinary output Acute kidney injury has improved with medical therapy free water No indication for dialysis at this time Continue to monitor electrolytes Avoid hypotension Avoid NSAIDs Plan discussed with: Other Dietary Evaluation Review Comments: 1) Initiate Nephro-Harihta @ 1 tb qd 2) If patient remains NPO > 7 days, consider EN/TPN to meet at least 75% of estimated daily needs 3) If GI route is preferred, consider Nepro CarbSteady @ 30 mL/hr goal rate as tolerated. EN regimen will provide 1296 kcals. 58g Pro, and 523 mL free H2O per 24 hrs. Goal rate will meet ~ 92% estimated daily energy needs and ~ 43% estimated daily protein needs. 4) Advance to 60g CCHO renal diet when medically feasible, pending ST approal 5) Refer to outpatient RD/[facility] for weight management 6) Follow-up with cardiology, pulmonology, nephrology, gastroenterology, and hepatology 7) Follow-up with social services designee r/t polysubstance abuse 8) Continue to monitor I&O, labs, and skin integrity Expected Outcomes/Goals: 1) patient to receive nutrition support within 7 days of NPO status 2) labs and GI symptoms to improve 3) diet to advance 4) f/u in 2-3 days Critical Care Time (mins): 33 JOSEPH HAM MD Feb 02, 2025 17:41
--- NOTE | 2025-02-02 17:57 | DVHPNRES ---
Progress Note Date Seen: Feb 02, 2025 Resident Creating Document: SONA HEARD VANESSA Has the PT tested + for MRSA If YES, has PT been informed?: No Medical Necessity Reason Pt with a Central, PICC or Fol: Yes The following are medically ne: Central Line (Left non tunneled IJ and tunneled right subclavian), Young Catheter Reason for young catheter: Strict I&O Subjective Review of Systems Patient seen and examined at the bedside. Patient is intubated on mechanical ventilation Objective vital signs Vital Sign Date Time Temp Pulse Resp B/P (MAP) Pulse Ox O2 Delivery O2 Flow Rate FiO2 02/02/25 16:30 100.2 71 32 119/61 (80) 100 212.4 02/02/25 16:00 Mechanical Ventilator+ 30 30 Total Intake and Output 02/01/25 02/01/25 02/02/25 15:00 23:00 07:00 Intake Total 50.2 ml 900 ml 1600 ml Output Total 1650 ml 800 ml Balance 50.2 ml -750 ml 800 ml medications Current Medications Medications Dose Ordered Sig/Natividad Route Start Time Stop Time Status Last Admin Dose Admin Midazolam HCl 50 ml @ 1 mls/hr Q24H IV 01/19/25 11:15 01/30/25 15:01 5 MLS/HR Thiamine HCl 100 mg DAILY IV 01/20/25 10:00 02/02/25 09:54 100 MG Folic Acid 1 mg/ Dextrose 50.2 ml @ 200.8 mls/ hr DAILY INJ 01/20/25 10:00 02/02/25 09:56 200.8 MLS/HR Dextrose 50 ml UD PRN IV 01/19/25 13:15 Diagnostic Test (Pha) 1 strip Q6HR 01/23/25 10:00 02/02/25 17:45 1 STRIP Insulin Human Lispro Q6HR SC 01/23/25 10:00 02/01/25 23:17 1 UNITS Metoclopramide HCl 5 mg Q8HR IV 01/23/25 16:30 02/02/25 13:46 5 MG Norepinephrine Bitartrate 250 ml @ 3.75 mls/hr Q24H IV 01/26/25 14:30 Enteral Nutritional Formula 1,000 ml 50ML/HR GT 01/26/25 17:00 02/02/25 17:38 1,000 ML Sodium Chloride 10 ml QSHIFT@10,22 IV 01/28/25 22:00 02/02/25 09:54 10 ML Lactulose 30 ml DAILY PRN PO 01/30/25 07:00 01/31/25 21:39 30 ML Pantoprazole Sodium 40 mg DAILY IV 01/30/25 10:00 02/02/25 09:54 40 MG Enoxaparin Sodium 90 mg Q12HR SC 01/30/25 22:00 02/02/25 09:53 90 MG Spironolactone 25 mg DAILY PO 01/31/25 10:00 02/02/25 09:53 25 MG Carvedilol 3.125 mg Q12HR PO 01/31/25 07:15 02/02/25 09:53 3.125 MG Furosemide 40 mg DAILY IV 01/31/25 10:00 02/02/25 09:54 40 MG Acetaminophen 650 mg Q6HP PRN PO 01/31/25 07:15 Levofloxacin/ Dextrose 100 ml @ 100 mls/hr DAILY@1800 IV 01/31/25 18:00 02/02/25 17:51 100 MLS/HR Purified Water 400 ml Q4HR GT 02/01/25 22:00 02/02/25 17:50 400 ML Examination General: RASS -3, afebrile, mucosae are moist Cardiovascular: Normal S1 and S2. No murmurs, gallops or rubs Respiratory: Mechanically assisted ventilation, equal bilateral airway entree. Clear lung sounds on auscultation Abdomen: Soft, nontender, no organomegaly, normal bowel sounds MSK/skin: Mobilization of limbs cannot be evaluated. Skin is dry and warm. Neurological: Orientation cannot be assessed. No apparent motor no sensitive deficits. Pupils are isocoric and reactive laboratory and microbiology Laboratory Tests 02/02/25 02:26 Test 02/02/25 02:26 Range/Units Serum Glucose 153 H 74-106 mg/dL Microbiology Date/Time Source Procedure Growth Status 01/30/25 11:27 Urine - Young Port Urine Culture - Final Complete 01/29/25 11:35 Sputum Gram Stain - Final Complete 01/29/25 11:35 Sputum Respiratory Culture - Final Complete 01/27/25 14:15 Blood Blood Culture - Final NO GROWTH AFTER 5 DAYS OF INCUBATION. Complete 01/23/25 20:14 Lung - Final Resulted 01/23/25 20:14 Lung - Final Resulted 01/23/25 20:14 Lung - Preliminary Resulted 01/23/25 20:14 Lung - Preliminary Resulted 01/23/25 20:14 Lung - Final See Separate Report... Resulted Problem List/Assessment/Plan Problem List/Assessment/Plan This is a 60-year-old male with past medical history of alcohol use disorder, current heavy smoker, gout, dyslipidemia, came to the hospital due to low back pain. On 2nd day of admission, the patient is stabilized, developed AFib and SVT, underwent cardioversion and adenosine was given subsequently, due to respiratory distress and inability to maintain respiratory tract, the patient was sedated, intubated and put on mechanical ventilation. NEURO: Acute metabolic/toxic encephalopathy likely due to sepsis/alcohol use disorder * Sedated, on MV with RASS score -4 * Head CT scan showed no significant intracranial abnormalities CARDIOVASCULAR: ? Cardiogenic shock, likely due to AFib with RVR/SVT Atrial fibrillation with RVR/SVT Acquired coagulopathy ? Acute on chronic Heart failure with reduced ejection fraction NSTEMI, likely type 2 due to above Sinus bradycardia Ruled out Endocarditis * Patient was 2 times reverted to NSR with cardioversion, subsequently put on amiodarone drip for 2 days, discontinued due to regaining sinus rhythm and bradycardia * EKG upon admission showed sinus rhythm with no significant ST or T-wave changes * Subsequent EKGs showed AFib with RVR and SVT, and reverted to normal sinus rhythm by giving amiodarone drip for 2 days * Echo shows, LVEF 45% severe pulmonary hypertension (RVSP 64) * BNP is raised at 450s * CLAUDE on 01/27/2025, normal study PULMONARY: Acute hypoxic respiratory failure, likely due to pneumonia Pneumonia, likely due to Gram-positive/Gram-negative bacteria/viral ? Pulmonary hypertension Possible obstructive sleep apnea Atelectasis * CT scan shows, bilateral small pleural effusion * Chest x-ray shows, closed left costophrenic angle * Bronchoscopy performed on 01/16/2024, had copious amount of mucus on bilateral main bronchus, sample sent for culture * Pulmonology is on the board GASTROINTESTINAL: ? Upper GI bleeding, likely due to liver cirrhosis/portal hypertension Alcohol use disorder Hepatomegaly and hepatic steatosis, likely due to alcohol use disorder Splenomegaly, likely due to above Bilateral indirect inguinal hernia, fatigue content extending to the scrotum Diverticulosis * GI is on the board, recommended medical management at the moment * Thiamine and folic acid GENITOURINARY: JOSE on possible CKD, likely VMN (baseline record not available) * Nephrology on the board, performed 4 session of HD, last session on 01/26/2025, criteria normalized ENDOCRINE: Newly diagnosed Diabetes, with hyperglycemia Dyslipidemia Thyroid nodule Obesity * HBA1c is 6.5 * Lispro subcutaneous q.6 hours METABOLIC: Gout Hypokalemia Hypocalcemia Hypertriglyceridemia, likely due to propofol side effects * Mild hypernatremia HEME: Severe thrombocytopenia, likely due to liver cirrhosis, normalized Mild anemia, normocytic normochromic * Status post transfusion of 1 unit RBC, 1 units FFP, and 1 unit platelet INFECTIOUS DISEASE: ? Septic shock likely due to pneumonia/bacteremia Recurrent spikes of fever Possible drug fever * Blood culture shows Gram-negative right, Salmonella sensitive to ampicillin * Sputum culture shows E coli, sensitive to ampicillin * Vancomycin and cefepime was given for 5 days, DC on 01/15/2025 * Ampicillin IV started on 01/15/2025, due to episodes of fever, ampicillin discontinued on 01/24/2025 * Over 01/16/24, the patient had multiple episodes of fever, patient is started back on vancomycin and meropenem on 01/24/2025, stopped vancomycin on 01/30/25 (given for 6 days) for possible drug fever * Acetaminophen p.r.n. for fever * Sputum culture shows, presumptive Lelo albicans, Fluconazole IV * Consulted infectious disease for fever of unknown origin, recommended to discontinue other antibiotic and give levofloxacin DERMATOLOGY: Right hand acute PAD/acute limb ischemia possibly due to arterial thrombosis, leading to possible right hand fingertip necrosis * Doppler ultrasound shows no significant arterial disease * Vascular surgeon consulted, performed right radial artery exploration with subsequent performed thrombectomy of the proximal radial artery, due to necrosis of distal phalanges of right hand, planned for amputation MUSCULOSKELETAL: * Chronic back pain, due to severe lumbar disc disease DIET: Nepro 30 mL/hr DVT prophylax: Lovenox therapeutic dose started on 01/30/25 GI prophylaxis: Protonix 40 mg daily Bowel regimen: Lactulose 30 mg daily PRN Code status: Code status discussed with the family (son), full code LINES/DRAINS/ACCESS: * ETT: Intubated on 01/19/2025 * Right subclavian tunneled catheter, placed on 01/26/2020 * Drips: Precedex * Young catheter: Exchanged on 01/30/2025 DISPOSITION: ICU status CPAP trial tried, patient was weaned from sedation, but patient could not wake up. Patient's status discussed with patient's son, sister, and [id number] at the bedside. Critical care time spent more than 105 minutes, including patient care, chart review, and updating the family. Excluding any procedure. Case discussed with Dr. Chadwick Plan discussed with: Patient, Other (RN) My Orders My Orders Orders - SONA HEARD RESDIVIRI Procedure Category Date Status Time Abg W/ Co-Ox RT 02/02/25 Logged 04:00 Chest Xray 1 View XY 02/02/25 Resulted 04:00 Cpap Trial For Am ORDERS 02/02/25 Transmitted 08:00 Complete Blood Count LAB 02/03/25 Verified 04:00 Comprehensive LAB 02/03/25 Verified Metabolic Panel 04:00 Chest Xray 1 View XY 02/02/25 Transmitted 17:55 Abg W/ Co-Ox RT 02/02/25 Transmitted 17:55 Dietary Evaluation Review Comments: 1) Initiate Nephro-Haritha @ 1 tb qd 2) If patient remains NPO > 7 days, consider EN/TPN to meet at least 75% of estimated daily needs 3) If GI route is preferred, consider Nepro CarbSteady @ 30 mL/hr goal rate as tolerated. EN regimen will provide 1296 kcals. 58g Pro, and 523 mL free H2O per 24 hrs. Goal rate will meet ~ 92% estimated daily energy needs and ~ 43% estimated daily protein needs. 4) Advance to 60g CCHO renal diet when medically feasible, pending ST approal 5) Refer to outpatient RD/CDCES for weight management 6) Follow-up with cardiology, pulmonology, nephrology, gastroenterology, and hepatology 7) Follow-up with long term care social worker r/t polysubstance abuse 8) Continue to monitor I&O, labs, and skin integrity Expected Outcomes/Goals: 1) patient to receive nutrition support within 7 days of NPO status 2) labs and GI symptoms to improve 3) diet to advance 4) f/u in 2-3 days Date of Service: Feb 02, 2025 Billing Provider: PINA CHADWICK MD Common Visit Codes: 42279-[id number] CARE 30-74 MIN SONA HEARD Feb 02, 2025 17:57 PINA CHADWICK MD Feb 05, 2025 20:08
[2025-02-02 18:34] LABS: Base Excess 2.7 mmol/L (-2.0-3.0)
--- NOTE | 2025-02-02 19:00 | DVH ---
CHEST RADIOGRAPH Indication: Pneumonia Technique: Single frontal view of the chest was obtained Comparison: XY CHEST XRAY 1 VIEW on DOS: 02/02/25, XY CHEST XRAY 1 VIEW on DOS: 02/01/25, XY CHEST PORTAB LE on DOS: 01/31/25 FINDINGS: Lines and Tubes: Endotracheal tube 3.3 cm above the vin. Right sided catheter in place from the i nternal jugular vein with the tip at the cavoatrial junction. Lungs: No focal consolidation. Pleura: No effusion. No pneumothorax. Cardiomediastinal contours: Unremarkable Bones: No acute osseous abnormality. IMPRESSION: 1. Endotracheal tube in place 3.3 cm above the vin. 2. Right internal jugular catheter in place at the cavoatrial junction without significant change [facility] 02/02/2025 0530.
--- NOTE | 2025-02-02 22:53 | DVHPN2 ---
Progress Note - Dictate Date Seen: Feb 02, 2025 Has the PT tested + for MRSA If YES, has PT been informed?: No Medical Necessity Reason Pt with a Central, PICC or Fol: Yes The following are medically ne: Central Line (Left non tunneled IJ and tunneled right subclavian), Young Catheter Reason for young catheter: Strict I&O Subjective [facility] Patient seen and examined at bedside. intubated on mechanical ventilator. Overnight events reviewed. vital signs Vital Sign Date Time Temp Pulse Resp B/P (MAP) Pulse Ox O2 Delivery O2 Flow Rate FiO2 02/02/25 22:16 63 121/73 02/02/25 20:30 99.5 35 100 211.1 02/02/25 20:20 30 02/02/25 20:00 Mechanical Ventilator+ Total Intake and Output 02/01/25 02/01/25 02/02/25 15:00 23:00 07:00 Intake Total 50.2 ml 900 ml 1600 ml Output Total 1650 ml 800 ml Balance 50.2 ml -750 ml 800 ml medications Current Medications Medications Dose Ordered Sig/Natividad Route Start Time Stop Time Status Last Admin Dose Admin Midazolam HCl 50 ml @ 1 mls/hr Q24H IV 01/19/25 11:15 01/30/25 15:01 5 MLS/HR Thiamine HCl 100 mg DAILY IV 01/20/25 10:00 02/02/25 09:54 100 MG Folic Acid 1 mg/ Dextrose 50.2 ml @ 200.8 mls/ hr DAILY INJ 01/20/25 10:00 02/02/25 09:56 200.8 MLS/HR Dextrose 50 ml UD PRN IV 01/19/25 13:15 Diagnostic Test (Pha) 1 strip Q6HR 01/23/25 10:00 02/02/25 17:45 1 STRIP Insulin Human Lispro Q6HR SC 01/23/25 10:00 02/01/25 23:17 1 UNITS Metoclopramide HCl 5 mg Q8HR IV 01/23/25 16:30 02/02/25 22:16 5 MG Norepinephrine Bitartrate 250 ml @ 3.75 mls/hr Q24H IV 01/26/25 14:30 Enteral Nutritional Formula 1,000 ml 50ML/HR GT 01/26/25 17:00 02/02/25 17:38 1,000 ML Sodium Chloride 10 ml QSHIFT@10,22 IV 01/28/25 22:00 02/02/25 22:16 10 ML Lactulose 30 ml DAILY PRN PO 01/30/25 07:00 01/31/25 21:39 30 ML Pantoprazole Sodium 40 mg DAILY IV 01/30/25 10:00 02/02/25 09:54 40 MG Enoxaparin Sodium 90 mg Q12HR SC 01/30/25 22:00 02/02/25 22:16 90 MG Spironolactone 25 mg DAILY PO 01/31/25 10:00 02/02/25 09:53 25 MG Carvedilol 3.125 mg Q12HR PO 01/31/25 07:15 02/02/25 22:16 3.125 MG Furosemide 40 mg DAILY IV 01/31/25 10:00 02/02/25 09:54 40 MG Acetaminophen 650 mg Q6HP PRN PO 01/31/25 07:15 Levofloxacin/ Dextrose 100 ml @ 100 mls/hr DAILY@1800 IV 01/31/25 18:00 02/02/25 17:51 100 MLS/HR Purified Water 400 ml Q4HR GT 02/01/25 22:00 02/02/25 22:16 400 ML objective Gen.: Patient lying in bed in medical ICU. Intubated on mechanical ventilator. Head: Normocephalic, atraumatic. Eyes: PERRLA. Ears: Normal external anatomy. Throat: Endotracheal tube and orogastric tube in place. Neck: Supple, trachea midline. Chest: Transmitted breath sounds bilaterally. Decreased air entry bilaterally. No wheezing. Bibasilar crackles. Cardiovascular: Positive S1, positive S2. Regular rate and rhythm. Abdomen: Positive bowel sounds in all 4 quadrants. Soft, nontender, nondistended. : Young in place. Normal external genitalia. Rectal: Deferred. Skin: Warm, dry. Fingers on right hand are noted to be blackened. Extremities: 2+ radial pulses bilaterally. No lower extremity edema. Neuro: Off sedation laboratory and microbiology Laboratory Tests 02/02/25 02:26 Test 02/02/25 02:26 Range/Units Serum Glucose 153 H 74-106 mg/dL Assessment/Plan Impression: Acute hypoxic respiratory failure On mechanical ventilator Sepsis ESRD, on hemodialysis Obesity, BMI 34.7 Events: Remains on vent support Vent settings: AC mode; RR 20, VT 500, PEEP 5, FiO2 30% Taper FiO2 as tolerated ABG reviewed, notable for alkalemia CXR reviewed; endotracheal tube in place 3.3 cm above the vin. Right internal jugular catheter in place at the cavoatrial junction Remains off sedation On Precedex drip. Patient tolerated CPAP for 1 hour, was placed back on full support Patient opens his eyes. We will attempt CPAP in AM. CPAP with PS 8, PEEP of 5. OK to increase PS to max 20 cmH2O to achieve tidal volume 400-500 mL. Precedex OK for agitation Complete antibiotics Recurrent fevers - monitor WBC stable at 11.3 K. Vascular Surgery recommendations appreciated. Blood pressure control Hemodialysis per Nephrology Monitor renal function Monitor electrolytes. Supplement as necessary. Hypernatremia - last sodium of 150 On free water. Monitor ins and outs. Accu-Cheks, ISS. Tube feeds for nutritional support RUE venous duplex revealed no DVT in right upper extremity CT abdomen-pelvis reviewed; Scattered fluid-filled small bowel loops; mild colonic diverticulosis; moderate retained stool in the colon. Moderate dependent consolidations in the bilateral lobes with air bronchograms likely atelectasis, though pneumonia (which can be on the basis of aspiration) is an additional consideration. Mild hepatosplenomegaly. Gastric tube terminates in the gastric fundus. S/p therapeutic bronchoscopy with RML BAL (01/23); cleared mucous plugging from L6-L10 and R1-R10. Sent for bacterial, fungal and viral cultures - follow up results. Limited chest ultrasound on 01/23 revealed compressive atelectasis. Consolidated lung. No pleural effusion noted. Please see separate procedure notes for details Labs and imaging reviewed. Rest of plan as noted below. Plan: s/p intubation on mechanical ventilator. Vent settings: AC mode; RR 20, VT 500, PEEP 5, FiO2 30% Titrate FIO2 to keep O2 saturation above 90%. VAP bundle. Daily ABG and CXR while intubated Off sedation Antibiotics. F/u cultures - Blood culture positive; bacteremia w/ Salmonella species. Repeat blood cultures show no growth Pressors as necessary for hemodynamic support. Titrate to keep MAP greater than 65 mmHg. S/p right radial thrombectomy by Vascular Surgery Possible plan for digit amputation by Vascular Surgery. Monitor hemoglobin Accu-Cheks, ISS PRN. HD per Nephrology Monitor renal function Monitor electrolytes. Supplement as necessary. Monitor ins and outs. Maintain euvolemia Wound care SBT/MIKAYLA. Diet and lifestyle modifications for weight reduction Obesity - complicates all care GI/DVT prophylaxis. Prognosis: Poor given patient's multiple co-morbidities. Condition: Critical Rest of plan per hospitalist and other consultants. A total of 35 minutes of critical care time was spent reviewing the patient record, examining the patient, making a diagnostic and therapeutic plan, discussing this plan with the medical personnel, following up on diagnostic studies and following the patient for clinical stability excluding any and all procedures. At least 50% of this time was spent in direct, [id number] contact. Thank you Dr. Dai for allowing me to participate in this patient's care. Further recommendations will depend on the patient's clinical course. Please do not hesitate to contact me if you have any questions or concerns. This medical document was created using an electronic medical record system with [employer] dictation system. Although these documentations are being carefully reviewed, there may still be some phonetic and typographical changes. The errors are purely typographical, due to imperfection on the software program, and do not reflect any compromise in the patient's medical care. Dietary Evaluation Review Comments: 1) Initiate Nephro-Haritha @ 1 tb qd 2) If patient remains NPO > 7 days, consider EN/TPN to meet at least 75% of estimated daily needs 3) If GI route is preferred, consider Nepro CarbSteady @ 30 mL/hr goal rate as tolerated. EN regimen will provide 1296 kcals. 58g Pro, and 523 mL free H2O per 24 hrs. Goal rate will meet ~ 92% estimated daily energy needs and ~ 43% estimated daily protein needs. 4) Advance to 60g CCHO renal diet when medically feasible, pending ST approal 5) Refer to outpatient RD/CDCES for weight management 6) Follow-up with cardiology, pulmonology, nephrology, gastroenterology, and hepatology 7) Follow-up with health and social care teacher r/t polysubstance abuse 8) Continue to monitor I&O, labs, and skin integrity Expected Outcomes/Goals: 1) patient to receive nutrition support within 7 days of NPO status 2) labs and GI symptoms to improve 3) diet to advance 4) f/u in 2-3 days Plan discussed with: Patient, Other (DENISSE Sanchez) TIM GE MD Feb 02, 2025 22:53
[2025-02-03] VITALS (105 sets, daily range): BP systolic 101–170; BP diastolic 43–76; PULSE 59–71; RESP 7–37; TEMP 98.8–100; O2SAT 80–100
[2025-02-03 03:48] LABS: Hematocrit 28.5 % (41.0-53.0); Hemoglobin 9.6 g/dL (13.5-17.5); Mean Corpuscular Hemoglobin 28.7 pg (28.0-32.0); Mean Corpuscular Volume 85.2 fL (80.0-100.0); Nucleated Red Blood Cells % 0.1 %
[2025-02-03 04:15] LABS: Alanine Aminotransferase 54 U/L (7-40); Albumin 2.9 g/dL (3.2-4.8); Alkaline Phosphatase 247 U/L (46-116); Anion Gap 11 (5-15); BUN/Creatinine Ratio 38.8 (10.0-20.0); Bilirubin, Total 0.5 mg/dL (0.2-1.0); Blood Urea Nitrogen 38 mg/dL (9-23); Calcium 8.6 mg/dL (8.7-10.4); Carbon Dioxide 26 mmol/L (20-31); Chloride 109 mmol/L (98-107); Glucose 184 mg/dL (74-106); Potassium 3.3 mmol/L (3.5-5.1); Sodium 146 mmol/L (136-145); Total Protein 5.7 g/dL (5.7-8.2)
[2025-02-03] MEDS: POTASSIUM CHL 20MEQ/100ML 100 ML IV SCH (06:27)
[2025-02-03 07:59] LABS: Base Excess -0.8 mmol/L (-2.0-3.0)
--- NOTE | 2025-02-03 09:27 | DVH ---
EXAM: XY CHEST XRAY 1 VIEW Indication: Lines and tubes Pnemonia Technique: Single frontal view of the chest was obtained Comparison: XY CHEST XRAY 1 VIEW on DOS: 02/02/25, XY CHEST XRAY 1 VIEW on DOS: 02/02/25, XY CHEST XRAY 1 VIEW on DOS: 02/01/25, XY CHEST PORTABLE on DOS: 01/31/25, XY CHEST XRAY 1 VIEW on DOS: 01/30/25 FINDINGS: Lines and Tubes: Endotracheal tube projects 2.9 cm above the vin. Left PICC tip projects over supe rior vena cava. Right chest port tip projects over the superior vena cava. Lungs: Mild interstitial opacities Pleura: No effusion. No pneumothorax. Cardiomediastinal contours: Unremarkable Bones: No acute osseous abnormality. IMPRESSION: No significant change compared to prior exam.
--- NOTE | 2025-02-03 12:08 | DVHPN2 ---
Progress Note Date Seen: Feb 03, 2025 Has the PT tested + for MRSA If YES, has PT been informed?: No Medical Necessity Reason Pt with a Central, PICC or Fol: Yes The following are medically ne: Central Line (Left non tunneled IJ and tunneled right subclavian), Young Catheter Reason for young catheter: Strict I&O Subjective Review of Systems: Deferred Objective vital signs Vital Sign Date Time Temp Pulse Resp B/P (MAP) Pulse Ox O2 Delivery O2 Flow Rate FiO2 02/03/25 10:58 65 159/69 02/03/25 10:14 28 100 30 02/03/25 10:00 Mechanical Ventilator+ 02/03/25 07:15 98.8 209.8 Total Intake and Output 02/02/25 02/02/25 02/03/25 15:00 23:00 07:00 Intake Total 202.8 ml 1489.053 ml 1696.464 ml Output Total 1425 ml 700 ml Balance 202.8 ml 64.053 ml 996.464 ml medications Current Medications Medications Dose Ordered Sig/Natividad Route Start Time Stop Time Status Last Admin Dose Admin Midazolam HCl 50 ml @ 1 mls/hr Q24H IV 01/19/25 11:15 01/30/25 15:01 5 MLS/HR Thiamine HCl 100 mg DAILY IV 01/20/25 10:00 02/03/25 10:55 100 MG Folic Acid 1 mg/ Dextrose 50.2 ml @ 200.8 mls/ hr DAILY INJ 01/20/25 10:00 02/03/25 10:00 200.8 MLS/HR Dextrose 50 ml UD PRN IV 01/19/25 13:15 Diagnostic Test (Pha) 1 strip Q6HR 01/23/25 10:00 02/03/25 06:27 1 STRIP Insulin Human Lispro Q6HR SC 01/23/25 10:00 02/03/25 06:28 1 UNITS Metoclopramide HCl 5 mg Q8HR IV 01/23/25 16:30 02/03/25 06:27 5 MG Norepinephrine Bitartrate 250 ml @ 3.75 mls/hr Q24H IV 01/26/25 14:30 Enteral Nutritional Formula 1,000 ml 50ML/HR GT 01/26/25 17:00 02/02/25 17:38 1,000 ML Sodium Chloride 10 ml QSHIFT@10,22 IV 01/28/25 22:00 02/03/25 10:00 10 ML Lactulose 30 ml DAILY PRN PO 01/30/25 07:00 01/31/25 21:39 30 ML Pantoprazole Sodium 40 mg DAILY IV 01/30/25 10:00 02/03/25 10:55 40 MG Enoxaparin Sodium 90 mg Q12HR SC 01/30/25 22:00 02/03/25 10:58 90 MG Spironolactone 25 mg DAILY PO 01/31/25 10:00 02/03/25 10:55 25 MG Carvedilol 3.125 mg Q12HR PO 01/31/25 07:15 02/03/25 10:58 3.125 MG Furosemide 40 mg DAILY IV 01/31/25 10:00 02/03/25 10:56 40 MG Acetaminophen 650 mg Q6HP PRN PO 01/31/25 07:15 Levofloxacin/ Dextrose 100 ml @ 100 mls/hr DAILY@1800 IV 01/31/25 18:00 02/02/25 17:51 100 MLS/HR Purified Water 400 ml Q4HR GT 02/01/25 22:00 02/03/25 10:00 400 ML Examination: GENERAL:Abnormal, LUNGS:Abnormal, CVS:Abnormal laboratory and microbiology Laboratory Tests 02/03/25 03:22 Test 02/03/25 03:22 Range/Units Serum Glucose 184 H 74-106 mg/dL Microbiology Date/Time Source Procedure Growth Status 01/30/25 11:27 Urine - Young Port Urine Culture - Final Complete 01/29/25 11:35 Sputum Gram Stain - Final Complete 01/29/25 11:35 Sputum Respiratory Culture - Final Complete 01/27/25 14:15 Blood Blood Culture - Final NO GROWTH AFTER 5 DAYS OF INCUBATION. Complete 01/23/25 20:14 Lung - Final Resulted 01/23/25 20:14 Lung - Final Resulted 01/23/25 20:14 Lung - Preliminary Resulted 01/23/25 20:14 Lung - Preliminary Resulted 01/23/25 20:14 Lung - Final See Separate Report... 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 Bilateral inguinal hernias extending into the scrotum Severe lumbar disc disease Congestive heart failure Thrombocytopenia Hypernatremia JOSE has resolved hypernatremia free water replace potassium No indication for dialysis at this time Continue to monitor electrolytes Avoid hypotension Avoid NSAIDs no new renal rec at this time will sign off case Plan discussed with: Other Dietary Evaluation Review Comments: 1) Initiate Nephro-Haritha @ 1 tb qd 2) If patient remains NPO > 7 days, consider EN/TPN to meet at least 75% of estimated daily needs 3) If GI route is preferred, consider Nepro CarbSteady @ 30 mL/hr goal rate as tolerated. EN regimen will provide 1296 kcals. 58g Pro, and 523 mL free H2O per 24 hrs. Goal rate will meet ~ 92% estimated daily energy needs and ~ 43% estimated daily protein needs. 4) Advance to 60g CCHO renal diet when medically feasible, pending ST approal 5) Refer to outpatient RD/CDCES for weight management 6) Follow-up with cardiology, pulmonology, nephrology, gastroenterology, and hepatology 7) Follow-up with social human services assistants r/t polysubstance abuse 8) Continue to monitor I&O, labs, and skin integrity Expected Outcomes/Goals: 1) patient to receive nutrition support within 7 days of NPO status 2) labs and GI symptoms to improve 3) diet to advance 4) f/u in 2-3 days Total Time (mins): 20 JOSEPH HAM MD Feb 03, 2025 12:07
--- NOTE | 2025-02-03 12:22 | DVHPN2 ---
Progress Note - Dictate Date Seen: Feb 03, 2025 Has the PT tested + for MRSA If YES, has PT been informed?: No Medical Necessity Reason Pt with a Central, PICC or Fol: Yes The following are medically ne: Central Line (Left non tunneled IJ and tunneled right subclavian), Young Catheter Reason for young catheter: Strict I&O vital signs Vital Sign Date Time Temp Pulse Resp B/P (MAP) Pulse Ox O2 Delivery O2 Flow Rate FiO2 02/03/25 11:58 65 132/70 02/03/25 10:14 28 100 30 02/03/25 10:00 Mechanical Ventilator+ 02/03/25 07:15 98.8 209.8 Total Intake and Output 02/02/25 02/02/25 02/03/25 15:00 23:00 07:00 Intake Total 202.8 ml 1489.053 ml 1696.464 ml Output Total 1425 ml 700 ml Balance 202.8 ml 64.053 ml 996.464 ml medications Current Medications Medications Dose Ordered Sig/Natividad Route Start Time Stop Time Status Last Admin Dose Admin Midazolam HCl 50 ml @ 1 mls/hr Q24H IV 01/19/25 11:15 01/30/25 15:01 5 MLS/HR Thiamine HCl 100 mg DAILY IV 01/20/25 10:00 02/03/25 10:55 100 MG Folic Acid 1 mg/ Dextrose 50.2 ml @ 200.8 mls/ hr DAILY INJ 01/20/25 10:00 02/03/25 10:00 200.8 MLS/HR Dextrose 50 ml UD PRN IV 01/19/25 13:15 Diagnostic Test (Pha) 1 strip Q6HR 01/23/25 10:00 02/03/25 12:16 1 STRIP Insulin Human Lispro Q6HR SC 01/23/25 10:00 02/03/25 06:28 1 UNITS Metoclopramide HCl 5 mg Q8HR IV 01/23/25 16:30 02/03/25 06:27 5 MG Norepinephrine Bitartrate 250 ml @ 3.75 mls/hr Q24H IV 01/26/25 14:30 Enteral Nutritional Formula 1,000 ml 50ML/HR GT 01/26/25 17:00 02/02/25 17:38 1,000 ML Sodium Chloride 10 ml QSHIFT@10,22 IV 01/28/25 22:00 02/03/25 10:00 10 ML Lactulose 30 ml DAILY PRN PO 01/30/25 07:00 01/31/25 21:39 30 ML Pantoprazole Sodium 40 mg DAILY IV 01/30/25 10:00 02/03/25 10:55 40 MG Enoxaparin Sodium 90 mg Q12HR SC 01/30/25 22:00 02/03/25 10:58 90 MG Spironolactone 25 mg DAILY PO 01/31/25 10:00 02/03/25 10:55 25 MG Carvedilol 3.125 mg Q12HR PO 01/31/25 07:15 02/03/25 10:58 3.125 MG Furosemide 40 mg DAILY IV 01/31/25 10:00 02/03/25 10:56 40 MG Acetaminophen 650 mg Q6HP PRN PO 01/31/25 07:15 Levofloxacin/ Dextrose 100 ml @ 100 mls/hr DAILY@1800 IV 01/31/25 18:00 02/02/25 17:51 100 MLS/HR Purified Water 400 ml Q4HR GT 02/01/25 22:00 02/03/25 10:00 400 ML laboratory and microbiology Laboratory Tests 02/03/25 03:22 Test 02/03/25 03:22 Range/Units Serum Glucose 184 H 74-106 mg/dL Assessment/Plan Acute hypoxic respiratory failure On mechanical ventilator Sepsis ESRD, on hemodialysis Obesity, BMI 34.7 Events: Remains on vent support Vent settings: AC mode; RR 20, VT 500, PEEP 5, FiO2 30% Taper FiO2 as tolerated ABG reviewed, notable for alkalemia CXR reviewed; endotracheal tube in place 3.3 cm above the vin. Right internal jugular catheter in place at the cavoatrial junction Remains off sedation On Precedex drip. Complete antibiotics Recurrent fevers - monitor WBC stable Vascular Surgery recommendations appreciated. Blood pressure control Hemodialysis per Nephrology Monitor renal function Monitor electrolytes. Supplement as necessary. Hypernatremia - last sodium of 150 On free water. Monitor ins and outs. Accu-Cheks, ISS. Tube feeds for nutritional support RUE venous duplex revealed no DVT in right upper extremity CT abdomen-pelvis reviewed; Scattered fluid-filled small bowel loops; mild colonic diverticulosis; moderate retained stool in the colon. Moderate dependent consolidations in the bilateral lobes with air bronchograms likely atelectasis, though pneumonia (which can be on the basis of aspiration) is an additional consideration. Mild hepatosplenomegaly. Gastric tube terminates in the gastric fundus. S/p therapeutic bronchoscopy with RML BAL (01/23); cleared mucous plugging from L6-L10 and R1-R10. Sent for bacterial, fungal and viral cultures - follow up results. Limited chest ultrasound on 01/23 revealed compressive atelectasis. Consolidated lung. No pleural effusion noted. Please see separate procedure notes for details Labs and imaging reviewed. Rest of plan as noted below. Plan: s/p intubation on mechanical ventilator. Vent settings: AC mode; RR 20, VT 500, PEEP 5, FiO2 30% Titrate FIO2 to keep O2 saturation above 90%. VAP bundle. Daily ABG and CXR while intubated Off sedation daily cpap trials when more awake ok to extubate continue supportive care Antibiotics. F/u cultures - Blood culture positive; bacteremia w/ Salmonella species. Repeat blood cultures show no growth Pressors as necessary for hemodynamic support. Titrate to keep MAP greater than 65 mmHg. S/p right radial thrombectomy by Vascular Surgery Possible plan for digit amputation by Vascular Surgery. Monitor hemoglobin Accu-Cheks, ISS PRN. HD per Nephrology Monitor renal function Monitor electrolytes. Supplement as necessary. Monitor ins and outs. Maintain euvolemia Wound care SBT/MIKAYLA. Diet and lifestyle modifications for weight reduction Obesity - complicates all care GI/DVT prophylaxis. Prognosis: Poor given patient's multiple co-morbidities. Condition: Critical Rest of plan per hospitalist and other consultants. crit care time 35 min Dietary Evaluation Review Comments: 1) Initiate Nephro-Haritha @ 1 tb qd 2) If patient remains NPO > 7 days, consider EN/TPN to meet at least 75% of estimated daily needs 3) If GI route is preferred, consider Nepro CarbSteady @ 30 mL/hr goal rate as tolerated. EN regimen will provide 1296 kcals. 58g Pro, and 523 mL free H2O per 24 hrs. Goal rate will meet ~ 92% estimated daily energy needs and ~ 43% estimated daily protein needs. 4) Advance to 60g CCHO renal diet when medically feasible, pending ST approal 5) Refer to outpatient RD/CDCES for weight management 6) Follow-up with cardiology, pulmonology, nephrology, gastroenterology, and hepatology 7) Follow-up with rn social work r/t polysubstance abuse 8) Continue to monitor I&O, labs, and skin integrity Expected Outcomes/Goals: 1) patient to receive nutrition support within 7 days of NPO status 2) labs and GI symptoms to improve 3) diet to advance 4) f/u in 2-3 days Plan discussed with: Other (rn) JONNATHAN FELICIANO MD Feb 03, 2025 12:22
--- NOTE | 2025-02-03 16:03 | DVH ---
EXAM: CT HEAD WITHOUT CONTRAST INDICATION: Stroke TECHNIQUE: CT of the head without intravenous contrast. Coronal and sagittal reformatted images are s ubmitted. Radiation Dose : 1. Head: CT Dose: CTDI volume is 48.54 mGy. Dose-length product is 1.44 mGy*cm The dose indicators for CT are the volume Computed Tomography (CT) Dose Index (CTDIvol) and the Dose Length Product (DLP), and are measured in units of mGy and mGy-cm, respectively. These indicators are not patient dose, but values generated from the CT scanner acquisition factors. The report includes radiation exposure data for exposures received during this examination. All CT scans at this medical facility are performed using dose modulation techniques as appropriate to a performed exam including the following: Automated exposure control was utilized; adjustment of the MA and/or KV according to patient size; and use of iterative reconstruction technique. COMPARISON: CT HEAD WITHOUT CONTRAST on DOS: 01/27/25 FINDINGS: There is no evidence of acute intracranial hemorrhage, extra-axial collection, mass effect, midline s hift, herniation or hydrocephalus. The ventricles, sulci and cisterns are unremarkable. The estrada-white differentiation is maintained. Decreased right mastoid air cell opacification. Persistent left mastoid air cell opacification. Muco jan thickening in the sphenoid sinus and the maxillary sinuses. Decreased opacification of the nasoph arynx. No depressed calvarial fracture. The surrounding soft tissues are unremarkable. IMPRESSION: 1. No acute intracranial abnormality.
--- NOTE | 2025-02-03 16:25 | DVHPNRES ---
Progress Note Date Seen: Feb 03, 2025 Resident Creating Document: SONA HEARD VANESSA Has the PT tested + for MRSA If YES, has PT been informed?: No Medical Necessity Reason Pt with a Central, PICC or Fol: Yes The following are medically ne: Central Line (Left non tunneled IJ and tunneled right subclavian), Young Catheter Reason for young catheter: Strict I&O Subjective Review of Systems Patient seen and examined at the bedside. Patient is off from sedation, but could not awaken. On mechanical ventilation Objective vital signs Vital Sign Date Time Temp Pulse Resp B/P (MAP) Pulse Ox O2 Delivery O2 Flow Rate FiO2 02/03/25 14:45 99.3 63 30 127/59 (81) 100 210.7 02/03/25 14:11 30 02/03/25 14:00 Mechanical Ventilator+ Total Intake and Output 02/02/25 02/02/25 02/03/25 15:00 23:00 07:00 Intake Total 202.8 ml 1489.053 ml 1696.464 ml Output Total 1425 ml 700 ml Balance 202.8 ml 64.053 ml 996.464 ml medications Current Medications Medications Dose Ordered Sig/Natividad Route Start Time Stop Time Status Last Admin Dose Admin Midazolam HCl 50 ml @ 1 mls/hr Q24H IV 01/19/25 11:15 01/30/25 15:01 5 MLS/HR Thiamine HCl 100 mg DAILY IV 01/20/25 10:00 02/03/25 10:55 100 MG Folic Acid 1 mg/ Dextrose 50.2 ml @ 200.8 mls/ hr DAILY INJ 01/20/25 10:00 02/03/25 10:00 200.8 MLS/HR Dextrose 50 ml UD PRN IV 01/19/25 13:15 Diagnostic Test (Pha) 1 strip Q6HR 01/23/25 10:00 02/03/25 12:16 1 STRIP Insulin Human Lispro Q6HR SC 01/23/25 10:00 02/03/25 12:41 1 UNITS Metoclopramide HCl 5 mg Q8HR IV 01/23/25 16:30 02/03/25 06:27 5 MG Norepinephrine Bitartrate 250 ml @ 3.75 mls/hr Q24H IV 01/26/25 14:30 Enteral Nutritional Formula 1,000 ml 50ML/HR GT 01/26/25 17:00 02/02/25 17:38 1,000 ML Sodium Chloride 10 ml QSHIFT@10,22 IV 01/28/25 22:00 02/03/25 10:00 10 ML Lactulose 30 ml DAILY PRN PO 01/30/25 07:00 01/31/25 21:39 30 ML Pantoprazole Sodium 40 mg DAILY IV 01/30/25 10:00 02/03/25 10:55 40 MG Spironolactone 25 mg DAILY PO 01/31/25 10:00 02/03/25 10:55 25 MG Carvedilol 3.125 mg Q12HR PO 01/31/25 07:15 02/03/25 10:58 3.125 MG Furosemide 40 mg DAILY IV 01/31/25 10:00 02/03/25 10:56 40 MG Acetaminophen 650 mg Q6HP PRN PO 01/31/25 07:15 Levofloxacin/ Dextrose 100 ml @ 100 mls/hr DAILY@1800 IV 01/31/25 18:00 02/02/25 17:51 100 MLS/HR Purified Water 400 ml Q4HR GT 02/01/25 22:00 02/03/25 10:00 400 ML Enoxaparin Sodium 90 mg Q12HR SC 02/03/25 22:00 02/10/25 10:01 Examination General: RASS -3, afebrile, mucosae are moist Cardiovascular: Normal S1 and S2. No murmurs, gallops or rubs Respiratory: Mechanically assisted ventilation, equal bilateral airway entree. Clear lung sounds on auscultation Abdomen: Soft, nontender, no organomegaly, normal bowel sounds MSK/skin: Mobilization of limbs cannot be evaluated. Skin is dry and warm. Neurological: Orientation cannot be assessed. No apparent motor no sensitive deficits. Pupils are isocoric and reactive laboratory and microbiology Laboratory Tests 02/03/25 03:22 Test 02/03/25 03:22 Range/Units Serum Glucose 184 H 74-106 mg/dL Microbiology Date/Time Source Procedure Growth Status 01/30/25 11:27 Urine - Young Port Urine Culture - Final Complete 01/29/25 11:35 Sputum Gram Stain - Final Complete 01/29/25 11:35 Sputum Respiratory Culture - Final Complete 01/27/25 14:15 Blood Blood Culture - Final NO GROWTH AFTER 5 DAYS OF INCUBATION. Complete 01/23/25 20:14 Lung - Final Resulted 01/23/25 20:14 Lung - Final Resulted 01/23/25 20:14 Lung - Preliminary Resulted 01/23/25 20:14 Lung - Preliminary Resulted 01/23/25 20:14 Lung - Final See Separate Report... Resulted Labs and/or images reviewed: Labs reviewed by me, Image(s) reviewed by me Problem List/Assessment/Plan Problem List/Assessment/Plan This is a 60-year-old male with past medical history of alcohol use disorder, current heavy smoker, gout, dyslipidemia, came to the hospital due to low back pain. On 2nd day of admission, the patient is stabilized, developed AFib and SVT, underwent cardioversion and adenosine was given subsequently, due to respiratory distress and inability to maintain respiratory tract, the patient was sedated, intubated and put on mechanical ventilation. NEURO: Acute metabolic/toxic encephalopathy likely due to sepsis/alcohol use disorder * Sedated, on MV with RASS score -4 * Head CT scan showed no significant intracranial abnormalities CARDIOVASCULAR: ? Cardiogenic shock, likely due to AFib with RVR/SVT Atrial fibrillation with RVR/SVT Acquired coagulopathy ? Acute on chronic Heart failure with reduced ejection fraction NSTEMI, likely type 2 due to above Sinus bradycardia Ruled out Endocarditis * Patient was 2 times reverted to NSR with cardioversion, subsequently put on amiodarone drip for 2 days, discontinued due to regaining sinus rhythm and bradycardia * EKG upon admission showed sinus rhythm with no significant ST or T-wave changes * Subsequent EKGs showed AFib with RVR and SVT, and reverted to normal sinus rhythm by giving amiodarone drip for 2 days * Echo shows, LVEF 45% severe pulmonary hypertension (RVSP 64) * BNP is raised at 450s * CLAUDE on 01/27/2025, normal study PULMONARY: Acute hypoxic respiratory failure, likely due to pneumonia Pneumonia, likely due to Gram-positive/Gram-negative bacteria/viral ? Pulmonary hypertension Possible obstructive sleep apnea Atelectasis * CT scan shows, bilateral small pleural effusion * Chest x-ray shows, closed left costophrenic angle * Bronchoscopy performed on 01/16/2024, had copious amount of mucus on bilateral main bronchus, sample sent for culture * Pulmonology is on the board * Planned for tracheostomy, consulted surgery GASTROINTESTINAL: ? Upper GI bleeding, likely due to liver cirrhosis/portal hypertension Alcohol use disorder Hepatomegaly and hepatic steatosis, likely due to alcohol use disorder Splenomegaly, likely due to above Bilateral indirect inguinal hernia, fatigue content extending to the scrotum Diverticulosis * GI is on the board, recommended medical management at the moment * Thiamine and folic acid * Planned for PEG tube, consulted GI GENITOURINARY: JOSE on possible CKD, likely VMN (baseline record not available) * Nephrology on the board, performed 4 session of HD, last session on 01/26/2025, criteria normalized ENDOCRINE: Newly diagnosed Diabetes, with hyperglycemia Dyslipidemia Thyroid nodule Obesity * HBA1c is 6.5 * Lispro subcutaneous q.6 hours METABOLIC: Gout Hypokalemia Hypocalcemia Hypertriglyceridemia, likely due to propofol side effects * Mild hypernatremia HEME: Severe thrombocytopenia, likely due to liver cirrhosis, normalized Mild anemia, normocytic normochromic * Status post transfusion of 1 unit RBC, 1 units FFP, and 1 unit platelet INFECTIOUS DISEASE: ? Septic shock likely due to pneumonia/bacteremia Recurrent spikes of fever Possible drug fever * Blood culture shows Gram-negative right, Salmonella sensitive to ampicillin * Sputum culture shows E coli, sensitive to ampicillin * Vancomycin and cefepime was given for 5 days, DC on 01/15/2025 * Ampicillin IV started on 01/15/2025, due to episodes of fever, ampicillin discontinued on 01/24/2025 * Over 01/16/24, the patient had multiple episodes of fever, patient is started back on vancomycin and meropenem on 01/24/2025, stopped vancomycin on 01/30/25 (given for 6 days) for possible drug fever * Acetaminophen p.r.n. for fever * Sputum culture shows, presumptive Lelo albicans, Fluconazole IV * Consulted infectious disease for fever of unknown origin, recommended to discontinue other antibiotic and give levofloxacin DERMATOLOGY: Right hand acute PAD/acute limb ischemia possibly due to arterial thrombosis, leading to possible right hand fingertip necrosis * Doppler ultrasound shows no significant arterial disease * Vascular surgeon consulted, performed right radial artery exploration with subsequent performed thrombectomy of the proximal radial artery, due to necrosis of distal phalanges of right hand, planned for amputation MUSCULOSKELETAL: * Chronic back pain, due to severe lumbar disc disease DIET: Nepro 30 mL/hr DVT prophylax: Lovenox therapeutic dose started on 01/30/25 GI prophylaxis: Protonix 40 mg daily Bowel regimen: Lactulose 30 mg daily PRN Code status: Code status discussed with the family (son), full code LINES/DRAINS/ACCESS: * ETT: Intubated on 01/19/2025 * Right subclavian tunneled catheter, placed on 01/26/2020 * Drips: Precedex * Young catheter: Exchanged on 01/30/2025 DISPOSITION: ICU status CPAP trial tried, patient was weaned from sedation, but patient could not wake up. Planned for tracheostomy and PEG tube, consulted surgery and Gastroenterology. Patient's status discussed with patient's son, sister, and [id number] at the bedside. Critical care time spent more than 105 minutes, including patient care, chart review, and updating the family. Excluding any procedure. Case discussed with Dr. Chadwick Plan discussed with: Patient, Other (RN) My Orders My Orders Orders - SONA HEARD RESDIVIRI Procedure Category Date Status Time Chest Xray 1 View XY 02/02/25 Resulted 17:55 Abg W/ Co-Ox RT 02/02/25 Logged 17:55 Abg W/ Co-Ox RT 02/03/25 Logged 06:00 Chest Xray 1 View XY 02/03/25 Resulted 06:21 Cpap Trial For Am ORDERS 02/03/25 Transmitted 09:[address] 02/03/25 Resulted 10:20 * Surgical Consult CONS 02/03/25 Transmitted Communication Order ORDERS 02/03/25 Transmitted 14:36 Potassium LAB 02/03/25 Logged 14:36 PTPTT LAB 02/05/25 Verified 04:00 Communication Order ORDERS 02/03/25 Transmitted 14:36 Enoxaparin Sodium PHA 02/03/25 In Process (Lovenox) 22:00 Dietary Evaluation Review Comments: 1) Initiate Nephro-Haritha @ 1 tb qd 2) If patient remains NPO > 7 days, consider EN/TPN to meet at least 75% of estimated daily needs 3) If GI route is preferred, consider Nepro CarbSteady @ 30 mL/hr goal rate as tolerated. EN regimen will provide 1296 kcals. 58g Pro, and 523 mL free H2O per 24 hrs. Goal rate will meet ~ 92% estimated daily energy needs and ~ 43% estimated daily protein needs. 4) Advance to 60g CCHO renal diet when medically feasible, pending ST approal 5) Refer to outpatient RD/CDCES for weight management 6) Follow-up with cardiology, pulmonology, nephrology, gastroenterology, and hepatology 7) Follow-up with social services specialist r/t polysubstance abuse 8) Continue to monitor I&O, labs, and skin integrity Expected Outcomes/Goals: 1) patient to receive nutrition support within 7 days of NPO status 2) labs and GI symptoms to improve 3) diet to advance 4) f/u in 2-3 days Date of Service: Feb 03, 2025 Billing Provider: PINA CHADWICK MD Common Visit Codes: 40012-[id number] CARE 30-74 MIN SONA HEARD Feb 03, 2025 16:25 PINA CHADWICK MD Feb 05, 2025 20:09
--- NOTE | 2025-02-03 16:32 | DVHPN2 ---
Progress Note Date Seen: Feb 03, 2025 Resident Creating Document: NATALY BURNETTE RESIDENT Has the PT tested + for MRSA If YES, has PT been informed?: No Medical Necessity Reason Pt with a Central, PICC or Fol: Yes The following are medically ne: Central Line (Left non tunneled IJ and tunneled right subclavian), Young Catheter Reason for young catheter: Strict I&O Subjective Review of Systems Today's progress The patient is undergoing CPAP trials today and has been off sedation since 8:00 a.m. on February 01, 2025. He is opening his eyes spontaneously, but not following commands. Enteral nutrition is being provided via NG tube with Nepro at 50 mL/hour, well tolerated. The patient had 1 bowel movement today. No evidence of GI bleeding. Liver enzymes are trending down. The patient is scheduled for tracheostomy on Thursday. And PEG tube to follow later by GI most likely on Thursday Objective vital signs Vital Sign Date Time Temp Pulse Resp B/P (MAP) Pulse Ox O2 Delivery O2 Flow Rate FiO2 02/03/25 14:45 99.3 63 30 127/59 (81) 100 210.7 02/03/25 14:11 30 02/03/25 14:00 Mechanical Ventilator+ Total Intake and Output 02/02/25 02/02/25 02/03/25 15:00 23:00 07:00 Intake Total 202.8 ml 1489.053 ml 1696.464 ml Output Total 1425 ml 700 ml Balance 202.8 ml 64.053 ml 996.464 ml medications Current Medications Medications Dose Ordered Sig/Natividad Route Start Time Stop Time Status Last Admin Dose Admin Midazolam HCl 50 ml @ 1 mls/hr Q24H IV 01/19/25 11:15 01/30/25 15:01 5 MLS/HR Thiamine HCl 100 mg DAILY IV 01/20/25 10:00 02/03/25 10:55 100 MG Folic Acid 1 mg/ Dextrose 50.2 ml @ 200.8 mls/ hr DAILY INJ 01/20/25 10:00 02/03/25 10:00 200.8 MLS/HR Dextrose 50 ml UD PRN IV 01/19/25 13:15 Diagnostic Test (Pha) 1 strip Q6HR 01/23/25 10:00 02/03/25 12:16 1 STRIP Insulin Human Lispro Q6HR SC 01/23/25 10:00 02/03/25 12:41 1 UNITS Metoclopramide HCl 5 mg Q8HR IV 01/23/25 16:30 02/03/25 06:27 5 MG Norepinephrine Bitartrate 250 ml @ 3.75 mls/hr Q24H IV 01/26/25 14:30 Enteral Nutritional Formula 1,000 ml 50ML/HR GT 01/26/25 17:00 02/02/25 17:38 1,000 ML Sodium Chloride 10 ml QSHIFT@10,22 IV 01/28/25 22:00 02/03/25 10:00 10 ML Lactulose 30 ml DAILY PRN PO 01/30/25 07:00 01/31/25 21:39 30 ML Pantoprazole Sodium 40 mg DAILY IV 01/30/25 10:00 02/03/25 10:55 40 MG Spironolactone 25 mg DAILY PO 01/31/25 10:00 02/03/25 10:55 25 MG Carvedilol 3.125 mg Q12HR PO 01/31/25 07:15 02/03/25 10:58 3.125 MG Furosemide 40 mg DAILY IV 01/31/25 10:00 02/03/25 10:56 40 MG Acetaminophen 650 mg Q6HP PRN PO 01/31/25 07:15 Levofloxacin/ Dextrose 100 ml @ 100 mls/hr DAILY@1800 IV 01/31/25 18:00 02/02/25 17:51 100 MLS/HR Purified Water 400 ml Q4HR GT 02/01/25 22:00 02/03/25 10:00 400 ML Enoxaparin Sodium 90 mg Q12HR SC 02/03/25 22:00 02/10/25 10:01 Examination General: Intubated, sedated but hemodynamically stable. * Abdomen: Soft, non-distended, no guarding or rigidity. * Bowel Sounds: Present in all quadrants. laboratory and microbiology Laboratory Tests 02/03/25 03:22 Test 02/03/25 03:22 Range/Units Serum Glucose 184 H 74-106 mg/dL Microbiology Date/Time Source Procedure Growth Status 01/30/25 11:27 Urine - Young Port Urine Culture - Final Complete 01/29/25 11:35 Sputum Gram Stain - Final Complete 01/29/25 11:35 Sputum Respiratory Culture - Final Complete 01/27/25 14:15 Blood Blood Culture - Final NO GROWTH AFTER 5 DAYS OF INCUBATION. Complete 01/23/25 20:14 Lung - Final Resulted 01/23/25 20:14 Lung - Final Resulted 01/23/25 20:14 Lung - Preliminary Resulted 01/23/25 20:14 Lung - Preliminary Resulted 01/23/25 20:14 Lung - Final See Separate Report... Resulted Problem List/Assessment/Plan Problem List/Assessment/Plan Assessment 1. Upper GI bleeding resolved/stable * No new bleeding; NG aspirate clear; H/H stable. 2. Alcoholic cirrhosis with portal hypertension, chronic liver disease * MELD remains high; LFTs elevated; continue monitoring. 2.Sepsis associated hepatic dysfunction 3. Critical illness with gastroparesis improving with prokinetic therapy. 4. Constipation persistent despite regimen, possibly opioid/sedation related. 5. Sepsis with WBC spike on antibiotics; respiratory culture positive for Lelo (likely colonization vs. infection). 6. Enteral feeding well tolerated at 50 mL/hr. Plan GI System Gastrointestinal / Nutrition Continue Nepro 50 cc/hr via OG tube * Target caloric goals and adjust as per RD recommendations. * Monitor for signs of aspiration, diarrhea, distension, and high residuals. * Bowel regimen PRN monitor for diarrhea; stool studies if diarrhea persists >24 hours. * Monitor liver enzymes (ALT, AST, ALP, TBili) daily. Consider RUQ ultrasound if LFTs continues to raise or bilirubin raises. * Maintain IV Protonix 40 mg BID for stress ulcer and variceal prophylaxis. * Continue IV Reglan 5 mg q8h to improve gastric motility. * Maintain aspiration precautions (HOB >30). Hepatic * Daily LFTs, INR, ammonia, platelets * Avoid hepatotoxic drugs; monitor for encephalopathy. Case discussed in detail with the attending physician, including the clinical presentation, diagnostic workup, and comprehensive management plan. Plan discussed with: Other (RN) Dietary Evaluation Review Comments: 1) Initiate Nephro-Haritha @ 1 tb qd 2) If patient remains NPO > 7 days, consider EN/TPN to meet at least 75% of estimated daily needs 3) If GI route is preferred, consider Nepro CarbSteady @ 30 mL/hr goal rate as tolerated. EN regimen will provide 1296 kcals. 58g Pro, and 523 mL free H2O per 24 hrs. Goal rate will meet ~ 92% estimated daily energy needs and ~ 43% estimated daily protein needs. 4) Advance to 60g CCHO renal diet when medically feasible, pending ST approal 5) Refer to outpatient RD/CD[facility] for weight management 6) Follow-up with cardiology, pulmonology, nephrology, gastroenterology, and hepatology 7) Follow-up with licensed social worker r/t polysubstance abuse 8) Continue to monitor I&O, labs, and skin integrity Expected Outcomes/Goals: 1) patient to receive nutrition support within 7 days of NPO status 2) labs and GI symptoms to improve 3) diet to advance 4) f/u in 2-3 days NATALY BURNETTE RESIDENT Feb 03, 2025 16:32
[2025-02-03] MEDS: MAGNESIUM SULFATE 1GM/100ML 100 ML IV ONE (17:02)
[2025-02-03] MEDS: POTASSIUM CHL 20MEQ/100ML 100 ML IV ONE (20:50)
[2025-02-03] MEDS: ENOXAPARIN SOD 100 MG/1 ML SYRINGE SC SCH (21:47)
--- NOTE | 2025-02-03 23:20 | DVHPN2 ---
Consult Progress Note Date Seen: Feb 03, 2025 Subjective Patient reports: Other (minimally responsive , withdrawls to pain but does not awaken . on miniaml vent with no fevers in last 24 hours ) Objective vital signs Vital Sign Date Time Temp Pulse Resp B/P (MAP) Pulse Ox O2 Delivery O2 Flow Rate FiO2 02/03/25 22:45 99.0 61 27 145/51 (82) 100 210.2 02/03/25 22:02 30 02/03/25 22:00 Mechanical Ventilator+ Total Intake and Output 02/02/25 02/02/25 02/03/25 15:00 23:00 07:00 Intake Total 202.8 ml 1489.053 ml 1696.464 ml Output Total 1425 ml 700 ml Balance 202.8 ml 64.053 ml 996.464 ml medications Current Medications Medications Dose Ordered Sig/Natividad Route Start Time Stop Time Status Last Admin Dose Admin Midazolam HCl 50 ml @ 1 mls/hr Q24H IV 01/19/25 11:15 01/30/25 15:01 5 MLS/HR Thiamine HCl 100 mg DAILY IV 01/20/25 10:00 02/03/25 10:55 100 MG Folic Acid 1 mg/ Dextrose 50.2 ml @ 200.8 mls/ hr DAILY INJ 01/20/25 10:00 02/03/25 10:00 200.8 MLS/HR Dextrose 50 ml UD PRN IV 01/19/25 13:15 Diagnostic Test (Pha) 1 strip Q6HR 01/23/25 10:00 02/03/25 17:03 1 STRIP Insulin Human Lispro Q6HR SC 01/23/25 10:00 02/03/25 17:22 1 UNITS Metoclopramide HCl 5 mg Q8HR IV 01/23/25 16:30 02/03/25 21:48 5 MG Norepinephrine Bitartrate 250 ml @ 3.75 mls/hr Q24H IV 01/26/25 14:30 Enteral Nutritional Formula 1,000 ml 50ML/HR GT 01/26/25 17:00 02/03/25 17:26 1,000 ML Sodium Chloride 10 ml QSHIFT@10,22 IV 01/28/25 22:00 02/03/25 21:48 10 ML Lactulose 30 ml DAILY PRN PO 01/30/25 07:00 01/31/25 21:39 30 ML Pantoprazole Sodium 40 mg DAILY IV 01/30/25 10:00 02/03/25 10:55 40 MG Spironolactone 25 mg DAILY PO 01/31/25 10:00 02/03/25 10:55 25 MG Carvedilol 3.125 mg Q12HR PO 01/31/25 07:15 02/03/25 21:47 3.125 MG Furosemide 40 mg DAILY IV 01/31/25 10:00 02/03/25 10:56 40 MG Acetaminophen 650 mg Q6HP PRN PO 01/31/25 07:15 Levofloxacin/ Dextrose 100 ml @ 100 mls/hr DAILY@1800 IV 01/31/25 18:00 02/03/25 17:03 100 MLS/HR Purified Water 400 ml Q4HR GT 02/01/25 22:00 02/03/25 21:48 400 ML Enoxaparin Sodium 90 mg Q12HR SC 02/03/25 22:00 02/10/25 10:01 02/03/25 21:47 90 MG Physical Exam: General: NAD Neck: Supple. No masses. HEENT: PERRL. Normal lids and conjunctiva. Moist mucous membranes. Oropharynx without lesions, exudates or excessive erythema. Normal appearance of the external aspects of the nose and ears. Heart: Regular rhythm, normal rate. No murmur. No lower extremity edema. Lungs: Normal respiratory effort. Clear to auscultation bilaterally. No wheezes. No crackles. Abdomen: Soft. Non-tender. Non-distended. No masses or abdominal hernia. Msk: No digital cyanosis. Normal strength and tone in all 4 limbs Skin: Warm and dry, no rashes. Neuro: Alert. No facial droop or slurred speech. Extra-ocular movements intact. Sensation intact to soft touch in all 4 limbs. Psych: Appropriate mood. Full affect. Oriented to person, place, time, and situation. laboratory and microbiology Laboratory Tests 02/03/25 17:15 02/03/25 03:22 Test 02/03/25 03:22 Range/Units Serum Glucose 184 H 74-106 mg/dL Problem List/Assessment/Plan Problems(with codes): (1) Salmonella bacteremia (2) E coli infection (3) Salmonella (4) Septic shock (5) UGIB (upper gastrointestinal bleed) (6) Sepsis, unspecified organism Problem List/Assessment/Plan ASSESSMENT AND PLAN: ID Problem List: \-- Cirrhosis and septic shock secondary to Salmonella bacteremia \-- E. coli aspiration pneumonia \-- Acute kidney injury, now improving \-- Thrombocytopenia (platelets low, now improving) \-- Severe degenerative lumbar disc disease with foraminal stenosis \-- Chronic alcohol dependence \-- Gout \-- Constipation \-- Poor medical follow-up Assessment: This is a 60-year-old male with a history of gout (not on any medications), chronic heavy alcohol use, and no surgical history, who presented with severe back pain and evidence of systemic infection with complicated clinical course. Patient was admitted for possible complicated urinary tract infection/urosepsis/pyelonephritis, acute kidney injury, and alcohol withdrawal. Notable findings include: severe thrombocytopenia on admission (platelets 53), initial lactic acidosis, and persistently elevated white count. Blood cultures grew Salmonella group D (sensitive to ampicillin and trimethoprim- sulfamethoxazole). Sputum culture grew penicillin-sensitive E. coli. Later, daria was found in the lungs; fluconazole was started. Patient required broad- spectrum antibiotics (initially meropenem and vancomycin), now with plans to deescalate as below. Fevers initially resolved, then recurred. Creatinine acutely increased (peak 5.25), now improved to 1.37; hemoglobin stable. Imaging notable for degenerative severe lumbar disc disease, cardiomegaly with left ventricular dysfunction and severe pulmonary hypertension, bilateral mild effusions, hepatomegaly, hepatosteatosis, and inguinal hernias. 01/31: chest x ray shows worsening right , improving left pilor interstitial opacities suggesting shifting pulmonary edema 02/01: patient is getting started on tube feeds and tolerating them and having good urine output through folley cath 02/02: creatinine at 1.03 , liver enzymes are slowly up trending on levofloxacin therapy , will continue to monitor 02/03: tolerating Cpap and awaiting for patient to awaken Plan: - check EKG in 5 days on levoquin therapy - recommending diuresis as tolerated \-- De-escalate antimicrobials: discontinue vancomycin and meropenem and fluconazole; start levofloxacin to complete total 14-day course for Salmonella bacteremia and pneumonia \-- Monitor for recurrent or persistent fevers; if persistent, consider drug fever, catheter-associated thrombosis, or other non-infectious etiology \-- Doppler ultrasound of the right upper and both lower extremities to evaluate for deep vein thrombosis due to swelling \-- If no etiology is found and fevers persist after above measures, consider CT pulmonary angiogram to evaluate for pulmonary embolism \-- Remove hemodialysis line catheter if not currently required \-- Continue aspiration precautions \-- Monitor renal function, platelet count, and hemodynamics \-- Manage constipation as indicated; patient has had several bowel movements since admission \-- Admit for monitoring of alcohol withdrawal and supportive care \-- Continue to evaluate and manage pain related to severe lumbar degenerative disc disease Authorized and Performed by: pastora garza MD Total critical care time: Approximately 76 minutes Due to a high probability of clinically significant, life threatening deterioration, the patient required my highest level of preparedness to intervene emergently and I personally spent this critical care time directly and personally managing the patient. This critical care time included obtaining a history; examining the patient; pulse oximetry; ordering and review of studies; arranging urgent treatment with development of a management plan; evaluation of patient's response to treatment; frequent reassessment; and, discussions with other providers. This critical care time was performed to assess and manage the high probability of imminent, life-threatening deterioration that could result in multi-organ failure. It was exclusive of separately billable procedures and treating other patients and teaching time. Isolation Precautions: Aspiration precautions Plan discussed with: Other Dietary Evaluation Review Comments: 1) Initiate Nephro-Haritha @ 1 tb qd 2) If patient remains NPO > 7 days, consider EN/TPN to meet at least 75% of estimated daily needs 3) If GI route is preferred, consider Nepro CarbSteady @ 30 mL/hr goal rate as tolerated. EN regimen will provide 1296 kcals. 58g Pro, and 523 mL free H2O per 24 hrs. Goal rate will meet ~ 92% estimated daily energy needs and ~ 43% estimated daily protein needs. 4) Advance to 60g CCHO renal diet when medically feasible, pending ST approal 5) Refer to outpatient RD/CD[facility] for weight management 6) Follow-up with cardiology, pulmonology, nephrology, gastroenterology, and hepatology 7) Follow-up with vp [employer] social media and crm r/t polysubstance abuse 8) Continue to monitor I&O, labs, and skin integrity Expected Outcomes/Goals: 1) patient to receive nutrition support within 7 days of NPO status 2) labs and GI symptoms to improve 3) diet to advance 4) f/u in 2-3 days PASTORA GARZA MD Feb 03, 2025 23:20
[2025-02-04] VITALS (109 sets, daily range): BP systolic 112–175; BP diastolic 49–86; PULSE 61–80; RESP 8–37; TEMP 98.8–100.9; O2SAT 90–100
[2025-02-04 03:54] LABS: Hematocrit 29.0 % (41.0-53.0); Hemoglobin 9.9 g/dL (13.5-17.5); Mean Corpuscular Hemoglobin 29.1 pg (28.0-32.0); Mean Corpuscular Volume 84.8 fL (80.0-100.0); Nucleated Red Blood Cells % 0.1 %
[2025-02-04 04:26] LABS: Alanine Aminotransferase 50 U/L (7-40); Albumin 3.0 g/dL (3.2-4.8); Alkaline Phosphatase 248 U/L (46-116); Anion Gap 13 (5-15); BUN/Creatinine Ratio 34.1 (10.0-20.0); Bilirubin, Total 0.5 mg/dL (0.2-1.0); Blood Urea Nitrogen 31 mg/dL (9-23); Calcium 9.1 mg/dL (8.7-10.4); Carbon Dioxide 24 mmol/L (20-31); Chloride 107 mmol/L (98-107); Glucose 185 mg/dL (74-106); Potassium 3.9 mmol/L (3.5-5.1); Sodium 144 mmol/L (136-145); Total Protein 5.7 g/dL (5.7-8.2)
--- NOTE | 2025-02-04 06:07 | DVH ---
EXAM: XY CHEST XRAY 1 VIEW HISTORY: Pneumonia COMPARISON: XY CHEST XRAY 1 VIEW on DOS: 02/03/25, XY CHEST XRAY 1 VIEW on DOS: 02/02/25, XY CHEST XRAY 1 VIEW on DOS: 02/02/25, XY CHEST XRAY 1 VIEW on DOS: 02/01/25, XY CHEST PORTABLE on DOS: 01/31/25 TECHNIQUE: Portable AP view of the chest was performed. FINDINGS: Endotracheal tube is re-identified with its tip 1.2 cm above the vin. NG tube and right IJ central line re-identified. There is mild interstitial prominence. No pneumothorax or consolidative infiltra nathaniel. The heart is not enlarged. IMPRESSION: 1. Mechanical ventilation with tubes and lines as above. 2. Mild interstitial prominence. No consolidative infiltrates.
[2025-02-04 07:13] LABS: Base Excess 0.2 mmol/L (-2.0-3.0)
--- NOTE | 2025-02-04 12:42 | DVHPN2 ---
Progress Note - Dictate Date Seen: Feb 04, 2025 Has the PT tested + for MRSA If YES, has PT been informed?: No Medical Necessity Reason Pt with a Central, PICC or Fol: Yes The following are medically ne: Central Line (Left non tunneled IJ and tunneled right subclavian), Young Catheter Reason for young catheter: Strict I&O Subjective No GI bleeding; liver enzymes trending downward. * Enteral feeds advanced to 50 mL/hr, tolerated. * multiple bowel movements have been recorded * No intraabdominal abscess or new GI pathology on CT. * WBC rise likely due to IV steroids; low-grade fever Mechanical ventilation with FiO2 30%, peep 5, tidal volume 500, respiratory rate 28. Blood culture showed salmonella bacteremia. vital signs Vital Sign Date Time Temp Pulse Resp B/P (MAP) Pulse Ox O2 Delivery O2 Flow Rate FiO2 02/04/25 12:17 75 31 149/68 (95) 100 30 02/04/25 07:00 100.6 213.1 02/04/25 06:00 Mechanical Ventilator+ Total Intake and Output 02/03/25 02/03/25 02/04/25 15:00 23:00 07:00 Intake Total 407.264 ml 599.928 ml 1706.464 ml Output Total 1650 ml 1450 ml Balance 407.264 ml -1050.072 ml 256.464 ml medications Current Medications Medications Dose Ordered Sig/Natividad Route Start Time Stop Time Status Last Admin Dose Admin Midazolam HCl 50 ml @ 1 mls/hr Q24H IV 01/19/25 11:15 01/30/25 15:01 5 MLS/HR Thiamine HCl 100 mg DAILY IV 01/20/25 10:00 02/04/25 11:44 100 MG Folic Acid 1 mg/ Dextrose 50.2 ml @ 200.8 mls/ hr DAILY INJ 01/20/25 10:00 02/03/25 10:00 200.8 MLS/HR Dextrose 50 ml UD PRN IV 01/19/25 13:15 Diagnostic Test (Pha) 1 strip Q6HR 01/23/25 10:00 02/04/25 12:05 1 STRIP Insulin Human Lispro Q6HR SC 01/23/25 10:00 02/04/25 12:04 1 UNITS Metoclopramide HCl 5 mg Q8HR IV 01/23/25 16:30 02/04/25 05:54 5 MG Norepinephrine Bitartrate 250 ml @ 3.75 mls/hr Q24H IV 01/26/25 14:30 Enteral Nutritional Formula 1,000 ml 50ML/HR GT 01/26/25 17:00 02/03/25 17:26 1,000 ML Sodium Chloride 10 ml QSHIFT@10,22 IV 01/28/25 22:00 02/04/25 11:46 10 ML Lactulose 30 ml DAILY PRN PO 01/30/25 07:00 01/31/25 21:39 30 ML Pantoprazole Sodium 40 mg DAILY IV 01/30/25 10:00 02/04/25 11:45 40 MG Spironolactone 25 mg DAILY PO 01/31/25 10:00 02/04/25 11:46 25 MG Carvedilol 3.125 mg Q12HR PO 01/31/25 07:15 02/04/25 11:45 3.125 MG Furosemide 40 mg DAILY IV 01/31/25 10:00 02/04/25 11:45 40 MG Acetaminophen 650 mg Q6HP PRN PO 01/31/25 07:15 Levofloxacin/ Dextrose 100 ml @ 100 mls/hr DAILY@1800 IV 01/31/25 18:00 02/03/25 17:03 100 MLS/HR Purified Water 400 ml Q4HR GT 02/01/25 22:00 02/04/25 10:00 400 ML Enoxaparin Sodium 90 mg Q12HR SC 02/03/25 22:00 02/10/25 10:01 02/04/25 11:46 90 MG objective General: Intubated sedated afebrile, mucosae are moist Cardiovascular: Normal S1 and S2, distant heart sound Respiratory: Mechanically assisted ventilation, Clear lung sounds on auscultation Abdomen: Soft, nontender, no organomegaly, normal bowel sounds laboratory and microbiology Laboratory Tests 02/04/25 03:31 Test 02/04/25 03:31 Range/Units Serum Glucose 185 H 74-106 mg/dL Problems(with codes): (1) Elevated liver enzymes (2) Sepsis, unspecified organism (3) Salmonella (4) Salmonella bacteremia (5) CHF (congestive heart failure) Prognosis Plan Patient is more awake and arousable He is off sedation, low-dose Precedex Patient's tube feedings are on hold today Patient is going to undergo CPAP trial with the next 2-3 days if Failed CPAP trials then re-evaluation for tracheostomy and PEG tube next week Dietary Evaluation Review Comments: 1) Initiate Nephro-Haritha @ 1 tb qd 2) If patient remains NPO > 7 days, consider EN/TPN to meet at least 75% of estimated daily needs 3) If GI route is preferred, consider Nepro CarbSteady @ 30 mL/hr goal rate as tolerated. EN regimen will provide 1296 kcals. 58g Pro, and 523 mL free H2O per 24 hrs. Goal rate will meet ~ 92% estimated daily energy needs and ~ 43% estimated daily protein needs. 4) Advance to 60g CCHO renal diet when medically feasible, pending ST approal 5) Refer to outpatient RD/[facility] for weight management 6) Follow-up with cardiology, pulmonology, nephrology, gastroenterology, and hepatology 7) Follow-up with social work assistant r/t polysubstance abuse 8) Continue to monitor I&O, labs, and skin integrity Expected Outcomes/Goals: 1) patient to receive nutrition support within 7 days of NPO status 2) labs and GI symptoms to improve 3) diet to advance 4) f/u in 2-3 days Plan discussed with: Other (ICU Nurse) PALMIRA OCHOA MD Feb 04, 2025 12:42
--- NOTE | 2025-02-04 15:55 | DVHPN2 ---
Assessment/Plan Assessment/Plan ICU note 60 yo M with gout admitted for back pain. This morning patient found to have elevated HR to 180s rapid response was called, patient was altered and BP was low. initial attempt done to give adenosine with no reduction in HR, patient received sync cardioversion with reversion to sinus tach that was only sustained for 1 minute which reverted back to SVT and started on amio drip. BP improved and patient was somewhat alert, given adenosine 12mg to attempt to re revert, which sustained less than a minute and now patient is in Afib with RVR. Patient was transferred to ICU, sustaining RVR, and more altered, decision made to intubate. Patient also has oral and nasal bleeding. After intubation patient persist to have low BP, started on peripheral pressor and placed TLC and a line. Discussion with renal initially patient was planned for possible dialysis if no improvement with IV diuretics. Patient however exhibit hypovolemic shock on POCUS and with the oral and nasal bleeding, possible alcohol use and cirrhosis, was started on rapid transfusion. Later he grows GNR in the blood. Empiric coverage with IV abx started. seen today, still low grade fever, not following commands, have good uo, plan fo r trach and peg, possible digital amputation when stable Physical exam intubated, on mechanical ventilation obese off sedation equal pupil, minimal movement not following commands mechanical breath sounds distant heart sound abdomen distended no LE edema R UE finger dry gangrene prominent abdominal and varicose veins on LE Labs EKG imaging reviewed Assessment and plan acute metabolic / toxic encephalopathy acute hypoxic RF req mechanical ventilation septic vs hemorrhagic shock vs cardiogenic? possible acute on chronic diastolic HF possible cirrhosis acquired coagulopathy JOSE ATN on CKD? GNR bacteremia severe thrombocytopenia with active bleeding SVT now new onset afib with RVR possible alcohol withdrawal alcohol use c/w mech ventilation plan for trach and peg c/w pressors maintain MAP >65 off sedation id consult appreciated, on levo, still low grade fever persists vasc consult appreciated, plan for digital amputaion c/w amio oral insulin diet TF dvt ppx therapeutic lovenx gi ppx protonix condition critical prognosis poor crit care time 45 mintues Plan discussed with: Other Date of Service: Feb 04, 2025 Billing Provider: PINA FOX MD Common Visit Codes: [id number] CARE 30-74 MIN PINA FOX MD Feb 04, 2025 15:55
--- NOTE | 2025-02-04 16:04 | DVHPN2 ---
Progress Note - Dictate Date Seen: Feb 04, 2025 Has the PT tested + for MRSA If YES, has PT been informed?: No Medical Necessity Reason Pt with a Central, PICC or Fol: Yes The following are medically ne: Central Line (Left non tunneled IJ and tunneled right subclavian), Young Catheter Reason for young catheter: Strict I&O vital signs Vital Sign Date Time Temp Pulse Resp B/P (MAP) Pulse Ox O2 Delivery O2 Flow Rate FiO2 02/04/25 14:20 71 33 146/60 (88) 100 30 02/04/25 07:00 100.6 213.1 02/04/25 06:00 Mechanical Ventilator+ Total Intake and Output 02/03/25 02/03/25 02/04/25 15:00 23:00 07:00 Intake Total 407.264 ml 599.928 ml 1706.464 ml Output Total 1650 ml 1450 ml Balance 407.264 ml -1050.072 ml 256.464 ml medications Current Medications Medications Dose Ordered Sig/Natividad Route Start Time Stop Time Status Last Admin Dose Admin Midazolam HCl 50 ml @ 1 mls/hr Q24H IV 01/19/25 11:15 01/30/25 15:01 5 MLS/HR Thiamine HCl 100 mg DAILY IV 01/20/25 10:00 02/04/25 11:44 100 MG Folic Acid 1 mg/ Dextrose 50.2 ml @ 200.8 mls/ hr DAILY INJ 01/20/25 10:00 02/03/25 10:00 200.8 MLS/HR Dextrose 50 ml UD PRN IV 01/19/25 13:15 Diagnostic Test (Pha) 1 strip Q6HR 01/23/25 10:00 02/04/25 12:05 1 STRIP Insulin Human Lispro Q6HR SC 01/23/25 10:00 02/04/25 12:04 1 UNITS Metoclopramide HCl 5 mg Q8HR IV 01/23/25 16:30 02/04/25 05:54 5 MG Norepinephrine Bitartrate 250 ml @ 3.75 mls/hr Q24H IV 01/26/25 14:30 Enteral Nutritional Formula 1,000 ml 50ML/HR GT 01/26/25 17:00 02/03/25 17:26 1,000 ML Sodium Chloride 10 ml QSHIFT@10,22 IV 01/28/25 22:00 02/04/25 11:46 10 ML Lactulose 30 ml DAILY PRN PO 01/30/25 07:00 01/31/25 21:39 30 ML Pantoprazole Sodium 40 mg DAILY IV 01/30/25 10:00 02/04/25 11:45 40 MG Spironolactone 25 mg DAILY PO 01/31/25 10:00 02/04/25 11:46 25 MG Carvedilol 3.125 mg Q12HR PO 01/31/25 07:15 02/04/25 11:45 3.125 MG Furosemide 40 mg DAILY IV 01/31/25 10:00 02/04/25 11:45 40 MG Acetaminophen 650 mg Q6HP PRN PO 01/31/25 07:15 Levofloxacin/ Dextrose 100 ml @ 100 mls/hr DAILY@1800 IV 01/31/25 18:00 02/03/25 17:03 100 MLS/HR Purified Water 400 ml Q4HR GT 02/01/25 22:00 02/04/25 14:00 400 ML Enoxaparin Sodium 90 mg Q12HR SC 02/03/25 22:00 02/10/25 10:01 02/04/25 11:46 90 MG laboratory and microbiology Laboratory Tests 02/04/25 03:31 Test 02/04/25 03:31 Range/Units Serum Glucose 185 H 74-106 mg/dL Assessment/Plan Impression Acute hypoxic respiratory failure Hx of alcohol abuse Sepsis ESRD, on hemodialysis Obesity Events: On mechanical ventilation S/p intubation PEEP 5, FiO2 30% May require tracheostomy Labs and imaging reviewed ABG reviewed Management Vent support Titrate to maintain sats 90% or above Accu-Cheks, ISS. Tube feeds for nutritional support daily cpap trials when more awake ok to extubate Continue antibiotics. Monitor hemoglobin HD per Nephrology Monitor renal function Monitor electrolytes. Supplement as necessary. Monitor ins and outs. Maintain euvolemia Patient may require tracheostomy Discussed with family at the bedside Pressors for hemodynamic support To maintain a mean arterial pressure of 65 mmHg Crit care time 35 min Dietary Evaluation Review Comments: 1) Initiate Nephro-Haritha @ 1 tb qd 2) If patient remains NPO > 7 days, consider EN/TPN to meet at least 75% of estimated daily needs 3) If GI route is preferred, consider Nepro CarbSteady @ 30 mL/hr goal rate as tolerated. EN regimen will provide 1296 kcals. 58g Pro, and 523 mL free H2O per 24 hrs. Goal rate will meet ~ 92% estimated daily energy needs and ~ 43% estimated daily protein needs. 4) Advance to 60g CCHO renal diet when medically feasible, pending ST approal 5) Refer to outpatient RD/CD[facility] for weight management 6) Follow-up with cardiology, pulmonology, nephrology, gastroenterology, and hepatology 7) Follow-up with social worker aide r/t polysubstance abuse 8) Continue to monitor I&O, labs, and skin integrity Expected Outcomes/Goals: 1) patient to receive nutrition support within 7 days of NPO status 2) labs and GI symptoms to improve 3) diet to advance 4) f/u in 2-3 days Plan discussed with: Other (Rn) JONNATHAN FELICIANO MD Feb 04, 2025 16:04
[2025-02-04] MEDS: ACETAMINOPHEN 325 MG TAB PO PRN (16:07)
[2025-02-05] VITALS (108 sets, daily range): BP systolic 105–172; BP diastolic 53–100; PULSE 60–84; RESP 10–32; TEMP 98.2–100; O2SAT 96–100
--- NOTE | 2025-02-05 04:08 | DVH ---
CHEST RADIOGRAPH Indication: intubated Technique: Single frontal view of the chest was obtained COMPARISON: XY CHEST XRAY 1 VIEW on DOS: 02/04/25, XY CHEST XRAY 1 VIEW on DOS: 02/03/25, XY CHEST XRAY 1 VIEW on DOS: 02/02/25, XY CHEST XRAY 1 VIEW on DOS: 02/02/25, XY CHEST XRAY 1 VIEW on DOS: 02/01/25 FINDINGS: Lines and Tubes: Interval advancement of endotracheal tube such that the tip now projects approximate ly 0.3 cm above the level of the vin. Remaining lines and tubes unchanged. Lungs: Clear Pleura: No effusion. No pneumothorax. Cardiomediastinal contours: Unremarkable Bones: Unremarkable IMPRESSION: 1. No acute disease. 2. Interval advancement of endotracheal tube such that the tip now projects approximately 0.3 cm abov e the level of the vin. Recommend retraction by up to 3 cm. Remaining lines and tubes unchanged.
[2025-02-05 04:16] LABS: Hematocrit 29.3 % (41.0-53.0); Hemoglobin 9.9 g/dL (13.5-17.5); Mean Corpuscular Hemoglobin 28.7 pg (28.0-32.0); Mean Corpuscular Volume 84.7 fL (80.0-100.0); Nucleated Red Blood Cells % 0.1 %
[2025-02-05 04:20] LABS: INR 1.3 (0.9-1.15); Partial Thromboplastin Time 40.2 SEC (24.5-34.5); Prothrombin Time 13.4 sec (9.3-11.8)
[2025-02-05 04:22] LABS: Anion Gap 12 (5-15); Carbon Dioxide 25 mmol/L (20-31); Chloride 105 mmol/L (98-107); Sodium 142 mmol/L (136-145)
[2025-02-05 04:23] LABS: Calcium 9.3 mg/dL (8.7-10.4)
[2025-02-05 04:24] LABS: Potassium 3.4 mmol/L (3.5-5.1)
[2025-02-05 04:28] LABS: BUN/Creatinine Ratio 27.8 (10.0-20.0); Blood Urea Nitrogen 30 mg/dL (9-23); Glucose 175 mg/dL (74-106)
[2025-02-05 04:29] LABS: Magnesium 1.8 mg/dL (1.6-2.6)
[2025-02-05 07:37] LABS: Base Excess 0.9 mmol/L (-2.0-3.0)
[2025-02-05] MEDS: MAGNESIUM SULFATE 1GM/100ML 100 ML IV ONE (10:00)
[2025-02-05] MEDS: SODIUM CHLORIDE 0.9% 500 ML IV ONE (10:00)
[2025-02-05] MEDS: methylPREDNISolone SOD SUCC 40 MG/ML VL IV ONE (10:00)
--- NOTE | 2025-02-05 10:57 | DVHPN2 ---
Assessment/Plan Assessment/Plan ICU note 60 yo M with gout admitted for back pain. This morning patient found to have elevated HR to 180s rapid response was called, patient was altered and BP was low. initial attempt done to give adenosine with no reduction in HR, patient received sync cardioversion with reversion to sinus tach that was only sustained for 1 minute which reverted back to SVT and started on amio drip. BP improved and patient was somewhat alert, given adenosine 12mg to attempt to re revert, which sustained less than a minute and now patient is in Afib with RVR. Patient was transferred to ICU, sustaining RVR, and more altered, decision made to intubate. Patient also has oral and nasal bleeding. After intubation patient persist to have low BP, started on peripheral pressor and placed TLC and a line. Discussion with renal initially patient was planned for possible dialysis if no improvement with IV diuretics. Patient however exhibit hypovolemic shock on POCUS and with the oral and nasal bleeding, possible alcohol use and cirrhosis, was started on rapid transfusion. Later he grows GNR in the blood. Empiric coverage with IV abx started. seen today, examined limbs and joints, noticed redness, swelling and warmth on b /l ankle, big toe and r wrist. patient is following commands today. nodded with pain on wrist only. xray to r/o fracture but likely gout flare 2/2 diuresis. prednisone, colchicine, moprhione for pain, small iv hydration. plan for extubatiuon today. POCUS done on UE veins, all collapsible Physical exam intubated, on mechanical ventilation obese off sedation equal pupil, minimal movement not following commands mechanical breath sounds distant heart sound abdomen distended no LE edema R UE finger dry gangrene prominent abdominal and varicose veins on LE Labs EKG imaging reviewed Assessment and plan acute metabolic / toxic encephalopathy acute hypoxic RF req mechanical ventilation septic vs hemorrhagic shock vs cardiogenic? possible acute on chronic diastolic HF possible cirrhosis acquired coagulopathy JOSE ATN on CKD? GNR bacteremia severe thrombocytopenia with active bleeding SVT now new onset afib with RVR possible alcohol withdrawal [facility] for trach and peg c/w pressors maintain MAP >65 off sedation id consult appreciated, on levo, still low grade fever persists vasc consult appreciated, plan for digital amputaion c/w amio oral insulin prednisone, morphine, colchicine diet TF dvt ppx therapeutic lovenx gi ppx protonix condition critical prognosis poor crit care time 79 mintues Plan discussed with: Patient, Other My Orders Orders - PINA FOX MD Procedure Category Date Status Time Chest Portable XY 02/05/25 Resulted 04:00 Potassium Chl PHA 02/05/25 In Process 20meq/100ml 10:00 Magnesium Sulfate PHA 02/05/25 In Process 1gm/100ml 10:00 Sodium Chloride 0.9% PHA 02/05/25 In Process 10:00 Abg W/ Co-Ox RT 02/05/25 Logged 10:36 Date of Service: Feb 05, 2025 Billing Provider: PINA FOX MD Common Visit Codes: 40785-[id number] CARE 30-74 MIN, 74263-[id number] CARE-EACH +30MIN PINA FOX MD Feb 05, 2025 10:57
[2025-02-05] MEDS: COLCHICINE 0.6 MG CAP PO ONE (11:00)
[2025-02-05] MEDS: POTASSIUM CHL 20MEQ/100ML 100 ML IV ONE (12:08)
[2025-02-05] MEDS: MORPHINE SULFATE 10 MG/5 ML ORAL SOLN GT SCH (14:00)
--- NOTE | 2025-02-05 14:32 | DVH ---
EXAM: XY L WRIST 2 VIEW XRAY CLINICAL INDICATION: r/o fx TECHNIQUE: XY L WRIST 2 VIEW XRAY Comparison: XY L WRIST 2 VIEW XRAY on DOS: 01/25/25 FINDINGS/IMPRESSION: There is no evidence of acute fracture or dislocation. The visualized joint space is well maintained. The alignment is anatomical. There is no radiopaque foreign body.
[2025-02-05] MEDS ORDERED: ALBUTEROL SULF 2.5 MG/0.5ML(0.5%) NEB SOLN NEB PRN (15:15)
--- NOTE | 2025-02-05 15:54 | DVHPN2 ---
Progress Note - Dictate Date Seen: Feb 05, 2025 Has the PT tested + for MRSA If YES, has PT been informed?: No Medical Necessity Reason Pt with a Central, PICC or Fol: Yes The following are medically ne: Central Line (Left non tunneled IJ and tunneled right subclavian), Young Catheter Reason for young catheter: Strict I&O vital signs Vital Sign Date Time Temp Pulse Resp B/P (MAP) Pulse Ox O2 Delivery O2 Flow Rate FiO2 02/05/25 15:15 98.6 77 28 147/86 (106) 100 209.5 02/05/25 14:00 Mechanical Ventilator+ 30 30 Total Intake and Output 02/04/25 02/04/25 02/05/25 15:00 23:00 07:00 Intake Total 18.853 ml 956.463 ml 1465.288 ml Output Total 1725 ml 450 ml Balance 18.853 ml -768.537 ml 1015.288 ml medications Current Medications Medications Dose Ordered Sig/Natividad Route Start Time Stop Time Status Last Admin Dose Admin Midazolam HCl 50 ml @ 1 mls/hr Q24H IV 01/19/25 11:15 01/30/25 15:01 5 MLS/HR Thiamine HCl 100 mg DAILY IV 01/20/25 10:00 02/05/25 10:49 100 MG Folic Acid 1 mg/ Dextrose 50.2 ml @ 200.8 mls/ hr DAILY INJ 01/20/25 10:00 02/05/25 10:00 200.8 MLS/HR Dextrose 50 ml UD PRN IV 01/19/25 13:15 Diagnostic Test (Pha) 1 strip Q6HR 01/23/25 10:00 02/05/25 12:15 1 STRIP Insulin Human Lispro Q6HR SC 01/23/25 10:00 02/05/25 12:53 1 UNITS Metoclopramide HCl 5 mg Q8HR IV 01/23/25 16:30 02/05/25 14:52 5 MG Norepinephrine Bitartrate 250 ml @ 3.75 mls/hr Q24H IV 01/26/25 14:30 Enteral Nutritional Formula 1,000 ml 50ML/HR GT 01/26/25 17:00 02/03/25 17:26 1,000 ML Sodium Chloride 10 ml QSHIFT@,22 IV 01/28/25 22:00 02/05/25 10:49 10 ML Lactulose 30 ml DAILY PRN PO 01/30/25 07:00 01/31/25 21:39 30 ML Pantoprazole Sodium 40 mg DAILY IV 01/30/25 10:00 02/05/25 10:49 40 MG Spironolactone 25 mg DAILY PO 01/31/25 10:00 02/05/25 10:49 25 MG Carvedilol 3.125 mg Q12HR PO 01/31/25 07:15 02/05/25 10:50 3.125 MG Furosemide 40 mg DAILY IV 01/31/25 10:00 02/05/25 14:52 40 MG Acetaminophen 650 mg Q6HP PRN PO 01/31/25 07:15 02/04/25 22:08 650 MG Levofloxacin/ Dextrose 100 ml @ 100 mls/hr DAILY@1800 IV 01/31/25 18:00 02/04/25 18:01 100 MLS/HR Purified Water 400 ml Q4HR GT 02/01/25 22:00 02/05/25 10:00 400 ML Enoxaparin Sodium 90 mg Q12HR SC 02/03/25 22:00 02/10/25 10:01 02/05/25 10:50 90 MG Prednisone 40 mg DAILY PO 02/06/25 10:00 Colchicine 0.6 mg DAILY PO 02/06/25 10:00 Ipratropium [place] 0.5 mg Q4HWA [facility] 02/05/25 18:00 Albuterol 2.5 mg Q4HWA [facility] 02/05/25 18:00 laboratory and microbiology Laboratory Tests 02/05/25 03:38 Test 02/05/25 03:38 Range/Units Serum Glucose 175 H 74-106 mg/dL Assessment/Plan Impression Acute hypoxic respiratory failure Hx of alcohol abuse Sepsis ESRD, on hemodialysis Obesity Events: Patient was successfully weaned from mechanical ventilation S/p extubation, transitioned to facemask Appears groggy Labs and imaging reviewed ABG reviewed Management Supplemental oxygen Titrate to maintain sats 90% or above Incentive spirometry Aspiration precautions Keep patient NPO Continue antibiotics. Monitor hemoglobin HD per Nephrology Monitor renal function Monitor electrolytes. Supplement as necessary. Monitor ins and outs. Maintain euvolemia Crit care time 35 min Dietary Evaluation Review Comments: 1) Initiate Nephro-Haritha @ 1 tb qd 2) If patient remains NPO > 7 days, consider EN/TPN to meet at least 75% of estimated daily needs 3) If GI route is preferred, consider Nepro CarbSteady @ 30 mL/hr goal rate as tolerated. EN regimen will provide 1296 kcals. 58g Pro, and 523 mL free H2O per 24 hrs. Goal rate will meet ~ 92% estimated daily energy needs and ~ 43% estimated daily protein needs. 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
[2025-02-05] MEDS: IPRATROPIUM BROM 0.5 MG/2.5ML INH SOL NEB ONE (15:58)
[2025-02-05] MEDS: ALBUTEROL SULF 2.5 MG/0.5ML(0.5%) NEB SOLN NEB ONE (15:58)
--- NOTE | 2025-02-05 17:43 | DVHINCON2 ---
Date of service: Feb 05, 2025 Family History: FH: HTN (hypertension) G8 MOTHER G8 FATHER FH: cancer of digestive organ G8 MOTHER FH: kidney disease G8 FATHER Allergies: Coded Allergies: NO KNOWN ALLERGIES (Unverified , 07/27/11) Home Meds Reported Medications Hydrocodone-Acetaminophen (Vicodin) 1 Tab Tab 07/27/11 Allopurinol (Allopurinol) 100 Mg Tab 07/27/11 Current Medications Current Medications Medications (Trade) Dose Ordered Sig/Natividad Route PRN Reason Start Time Stop Time Status Last Admin Prednisone 40 mg DAILY PO 02/06/25 10:00 Colchicine (Colcrys) 0.6 mg DAILY PO 02/06/25 10:00 Morphine Sulfate 10 mg Q4HR GT 02/05/25 14:00 02/05/25 15:19 DC Albuterol (Ventolin Medneb) 2.5 mg Q4HPRN PRN NEB SHORTNESS OF BREATH 02/05/25 15:15 02/05/25 15:15 DC Ipratropium [place] (Atrovent Medneb) 0.5 mg Q4HWA NEB 02/05/25 18:00 Albuterol (Ventolin Medneb) 2.5 mg Q4HWA NEB 02/05/25 18:00 Acetylcysteine (Mucomyst Inahalation 10%) 100 mg Q8HR NEB 02/05/25 22:00 02/08/25 21:59 Vital Signs Vital Signs Date Time Temp Pulse Resp B/P (MAP) Pulse Ox O2 Delivery O2 Flow Rate FiO2 02/05/25 17:00 98.6 80 23 131/78 (95) 100 209.5 02/05/25 16:00 Mechanical Ventilator+ 30 30 02/05/25 15:58 2.0 Labs/Diagnostic Data Labs Test 02/05/25 12:14 02/05/25 07:24 02/05/25 03:38 02/04/25 03:31 Range/Units POC Glucose 155 H 70-106 mg/dl Blood Gas Specimen Type Arterial Blood Gas Sample Site Left radial Blood Gas Patient Temperature 37.0 Arterial Blood Date Drawn [id number] Arterial Blood pH 7.471 H 7.350-7.450 Arterial Blood Partial Pressure CO2 33.9 L 35.0-48.0 mmHg Arterial Blood Partial Pressure O2 97.3 83.0-108.0 mmHg Arterial Blood HCO3 24.2 21.0-28.0 mmol/L Arterial Blood Oxygen Saturation 97.2 94.0-98.0 % Arterial Blood Base Excess 0.9 -2.0-3.0 mmol/L Arterial Blood Oxyhemoglobin 96.2 94.0-98.0 % Arterial Blood Carboxyhemoglobin 0.7 0.5-1.5 % Arterial Blood Methemoglobin 0.3 0.0-1.5 % Eligio Test Modified Blood Gas Total Hemoglobin 11.90 L 13.5-17.5 g/dL Blood Gas Set Respiration Rate 20.0 Blood Gas Modality Vent - ac FiO2 % 30.0 Blood Gas Tidal Volume 500.0 Blood Gas PEEP or CPAP 5.0 White Blood Count 10.5 4.4-10.8 10^3/uL Red Blood Count 3.46 L 4.5-5.90 10^6/uL Hemoglobin 9.9 L 13.5-17.5 g/dL Hematocrit 29.3 L 41.0-53.0 % Mean Corpuscular Volume 84.7 80.0-100.0 fL Mean Corpuscular Hemoglobin 28.7 28.0-32.0 pg Mean Corpuscular Hemoglobin Concent 33.9 32.0-36.0 g/dL Red Cell Distribution Width 15.1 H 11.8-14.3 % Platelet Count 279 140-450 10^3/uL Mean Platelet Volume 9.3 6.9-10.8 fL Neutrophils (%) (Auto) 75.8 37.0-80.0 % Lymphocytes (%) (Auto) 17.0 10.0-50.0 % Monocytes (%) (Auto) 5.8 0.0-12.0 % Eosinophils (%) (Auto) 1.0 0.0-7.0 % Basophils (%) (Auto) 0.4 0.0-2.0 % Neutrophils # (Auto) 8.0 1.6-8.6 10 ^3/uL Lymphocytes # (Auto) 1.8 0.4-5.4 10 ^3/uL Monocytes # (Auto) 0.6 0-1.3 10 ^3/uL Eosinophils # (Auto) 0.1 0-0.8 10 ^3/uL Basophils # (Auto) 0 0-0.2 10 ^3/uL Nucleated Red Blood Cells 0.1 % Prothrombin Time 13.4 H 9.3-11.8 sec Prothrombin Time INR 1.30 H 0.9-1.15 Activated Partial Thromboplast Time 40.2 H 24.5-34.5 SEC Sodium Level 142 136-145 mmol/L Potassium Level 3.4 L 3.5-5.1 mmol/L Chloride Level 105 98-107 mmol/L Carbon Dioxide Level 25 20-31 mmol/L Anion Gap 12 5-15 Blood Urea Nitrogen 30 H 9-23 mg/dL Creatinine 1.08 0.700-1.30 mg/dL Glomerular Filtration Rate Calc 78 >90 mL/min BUN/Creatinine Ratio 27.8 H 10.0-20.0 Serum Glucose 175 H 74-106 mg/dL Calcium Level 9.3 8.7-10.4 mg/dL Phosphorus Level 5.5 H 2.4-5.1 mg/dL Magnesium Level 1.8 1.6-2.6 mg/dL Total Bilirubin 0.5 0.2-1.0 mg/dL Aspartate Amino Transferase (AST) 52 H 13-40 U/L Alanine Aminotransferase (ALT) 50 H 7-40 U/L Alkaline Phosphatase 248 H 46-116 U/L Total Protein 5.7 5.7-8.2 g/dL Albumin 3.0 L 3.2-4.8 g/dL Test 02/02/25 18:26 02/01/25 16:06 01/31/25 03:01 01/29/25 03:10 Range/Units Blood Gas Spontaneous Rate 27 Blood Gas Spontaneous Tidal Volume 478 Blood Gas Inspiratory Pressure 24.0 Ammonia < 10 L 11-32 umol/L Triglycerides Level 667 H < 150 mg/dL Random Vancomycin Level 16.5 H 5-10 ug/mL Test 01/26/25 11:15 01/24/25 03:13 01/23/25 07:42 01/20/25 06:18 Range/Units Lactic Acid Level 1.1 0.4-2.0 mmol/L Differential Total Cells Counted 100.0 100 Neutrophils % (Manual) 82 H 37.0-80.0 Band Neutrophils % (Manual) 0 Lymphocytes % (Manual) 11 10.0-50.0 Monocytes % (Manual) 7 0-12 Eosinophils % (Manual) 0 0-7 Basophils % (Manual) 0 0.0-2.0 Metamyelocytes % (manual) 0 Myelocytes % (Manual) 0 Promyelocytes % (Manual) 0 Blast Cells % (Manual) 0 Reactive Lymphocytes 0 Platelet Estimate Decrea Large Platelets Few Giant Platelets Few Stomatocytes Few Specimen Drawn By [facility] Blood Gas Critical Value Read Back Yes Blood Gas Notified Whom Dr. renato bueno Blood Gas Notified Time [id number] Blood Gas Notified By Rt alvina simmons Test 01/20/25 03:17 01/19/25 09:53 01/18/25 08:36 01/18/25 06:08 Range/Units Ferritin 542.8 H 22-322 ng/mL Direct Bilirubin 3.7 H <0.3 mg/dL Anti-Nuclear Antibody Screen Negative Negative Hepatitis A IgM Antibody Negative Hepatitis A Antibody Total Positive H Negative Hepatitis B Surface Antigen Negative Negative Hepatitis B Surface Antibody Negative Negative Hepatitis B Core Total Antibody Negative Negative Hepatitis B Core IgM Antibody Negative Negative Hepatitis C Antibody Negative Negative HIV (1&2) Antibody Negative Negative Blood Gas Liter Flow 12.00 Troponin I High Sensitivity 30 </=54 ng/L Urine Color Yellow Yellow Urine Clarity Turbid H Clear Urine pH 6.0 5.0-9.0 Urine Specific [place] 1.017 1.001-1.035 Urine Protein 2+ H Negative Urine Ketones Negative Negative Urine Blood 2+ H Negative /uL Urine Nitrite Negative Negative Urine Bilirubin 1+ Negative Urine Urobilinogen 3 H Negative mg/dL Urine Leukocyte Esterase Negative Negative /uL Urine RBC 3 0 - 3 /hpf Urine Microscopic WBC 4 H 0-3 /HPF Urine Squamous Epithelial Cells None seen <5 /hpf Urine Bacteria None seen None Seen /hpf Urine Sperm Present None Seen /hpf Urine Glucose Normal Normal mg/dL Test 01/18/25 05:55 Range/Units Hemoglobin A1c 6.5 H <5.7 % A1C B-Type Natriuretic Peptide 457.18 0-100 pg/mL Thyroid Stimulating Hormone (TSH) 1.78 0.55-4.78 uIU/mL Free Thyroxine (T4) Calculated 1.17 0.89-1.76 ng/dL Free Triiodothyronine (T3) pg/mL 2.53 2.3-4.2 pg/mL Microbiology Date/Time Source Procedure Growth Status 01/30/25 11:27 Urine - [place] Urine Culture - Final Complete 01/29/25 11:35 Sputum Gram Stain - Final Complete 01/29/25 11:35 Sputum Respiratory Culture - Final Complete 01/27/25 14:15 Blood Blood Culture - Final NO GROWTH AFTER 5 DAYS OF INCUBATION. Complete 01/23/25 20:14 Lung - Final Resulted 01/23/25 20:14 Lung - Final Resulted 01/23/25 20:14 Lung - Preliminary Resulted 01/23/25 20:14 Lung - Preliminary Resulted 01/23/25 20:14 Lung - Final See Separate Report... Resulted Assessment [id number] VENTILATOR STATUS AFEBRILE VSS EXTUBATION ATTEMPTED CONTINUE CLOSE OBSERVATION HOLD ELECTIVE TRACHEOSTOMY Plan discussed with: Other EDWARD OCHOA MD Feb 05, 2025 17:43
--- NOTE | 2025-02-05 18:52 | DVHPN2 ---
Progress Note - Dictate Date Seen: Feb 05, 2025 Has the PT tested + for MRSA If YES, has PT been informed?: No Medical Necessity Reason Pt with a Central, PICC or Fol: Yes The following are medically ne: Central Line (Left non tunneled IJ and tunneled right subclavian), Young Catheter Reason for young catheter: Strict I&O Subjective PT EXTUBATEd, NO STRIDOR NOTED. PT PLACED COOL MIST 10L 35%, SPO2 99%. Coarse breath sounds No GI bleeding; liver enzymes trending downward. * Enteral feeds advanced to 50 mL/hr, tolerated. * multiple bowel movements have been recorded * No intraabdominal abscess or new GI pathology on CT. * WBC rise likely due to IV steroids; low-grade fever Blood culture showed salmonella bacteremia. vital signs Vital Sign Date Time Temp Pulse Resp B/P (MAP) Pulse Ox O2 Delivery O2 Flow Rate FiO2 02/05/25 18:45 98.4 81 24 153/79 (103) 99 209.1 02/05/25 18:00 Mechanical Ventilator+ 30 30 02/05/25 15:58 2.0 Total Intake and Output 02/04/25 02/04/25 02/05/25 15:00 23:00 07:00 Intake Total 18.853 ml 956.463 ml 1465.288 ml Output Total 1725 ml 450 ml Balance 18.853 ml -768.537 ml 1015.288 ml medications Current Medications Medications Dose Ordered Sig/Natividad Route Start Time Stop Time Status Last Admin Dose Admin Midazolam HCl 50 ml @ 1 mls/hr Q24H IV 01/19/25 11:15 01/30/25 15:01 5 MLS/HR Thiamine HCl 100 mg DAILY IV 01/20/25 10:00 02/05/25 10:49 100 MG Folic Acid 1 mg/ Dextrose 50.2 ml @ 200.8 mls/ hr DAILY INJ 01/20/25 10:00 02/05/25 10:00 200.8 MLS/HR Dextrose 50 ml UD PRN IV 01/19/25 13:15 Diagnostic Test (Pha) 1 strip Q6HR 01/23/25 10:00 02/05/25 17:50 1 STRIP Insulin Human Lispro Q6HR SC 01/23/25 10:00 02/05/25 17:53 3 UNITS Metoclopramide HCl 5 mg Q8HR IV 01/23/25 16:30 02/05/25 14:52 5 MG Norepinephrine Bitartrate 250 ml @ 3.75 mls/hr Q24H IV 01/26/25 14:30 Enteral Nutritional Formula 1,000 ml 50ML/HR GT 01/26/25 17:00 02/03/25 17:26 1,000 ML Sodium Chloride 10 ml QSHIFT@10,22 IV 01/28/25 22:00 02/05/25 10:49 10 ML Lactulose 30 ml DAILY PRN PO 01/30/25 07:00 01/31/25 21:39 30 ML Pantoprazole Sodium 40 mg DAILY IV 01/30/25 10:00 02/05/25 10:49 40 MG Spironolactone 25 mg DAILY PO 01/31/25 10:00 02/05/25 10:49 25 MG Carvedilol 3.125 mg Q12HR PO 01/31/25 07:15 02/05/25 10:50 3.125 MG Furosemide 40 mg DAILY IV 01/31/25 10:00 02/05/25 14:52 40 MG Acetaminophen 650 mg Q6HP PRN PO 01/31/25 07:15 02/04/25 22:08 650 MG Levofloxacin/ Dextrose 100 ml @ 100 mls/hr DAILY@1800 IV 01/31/25 18:00 02/05/25 17:50 100 MLS/HR Purified Water 400 ml Q4HR GT 02/01/25 22:00 02/05/25 10:00 400 ML Enoxaparin Sodium 90 mg Q12HR SC 02/03/25 22:00 02/10/25 10:01 02/05/25 10:50 90 MG Prednisone 40 mg DAILY PO 02/06/25 10:00 Colchicine 0.6 mg DAILY PO 02/06/25 10:00 Ipratropium [place] 0.5 mg Q4HWA [facility] 02/05/25 18:00 Albuterol 2.5 mg Q4HWA [facility] 02/05/25 18:00 Acetylcysteine 100 mg Q8HR NEB 02/05/25 22:00 02/08/25 21:59 objective General: Intubated sedated afebrile, mucosae are moist Cardiovascular: Normal S1 and S2, distant heart sound Respiratory: Mechanically assisted ventilation, Clear lung sounds on auscultation Abdomen: Soft, nontender, no organomegaly, normal bowel sounds laboratory and microbiology Laboratory Tests 02/05/25 03:38 Test 02/05/25 03:38 Range/Units Serum Glucose 175 H 74-106 mg/dL Problems(with codes): (1) Salmonella bacteremia (2) E coli infection (3) Septic shock (4) UGIB (upper gastrointestinal bleed) (5) Sepsis, unspecified organism (6) Elevated liver enzymes (7) SVT (supraventricular tachycardia) Prognosis Plan Continue to monitor labs Since patient has been extubated currently tracheostomy is cancer We will re-evaluate him over the next 2-3 days if to see if the patient can pass a swallow eval Dietary Evaluation Review Comments: 1) Initiate Nephro-Haritha @ 1 tb qd 2) If patient remains NPO > 7 days, consider EN/TPN to meet at least 75% of estimated daily needs 3) If GI route is preferred, consider Nepro CarbSteady @ 30 mL/hr goal rate as tolerated. EN regimen will provide 1296 kcals. 58g Pro, and 523 mL free H2O per 24 hrs. Goal rate will meet ~ 92% estimated daily energy needs and ~ 43% estimated daily protein needs. 4) Advance to 60g CCHO renal diet when medically feasible, pending ST approal 5) Refer to outpatient RD/CDCES for weight management 6) Follow-up with cardiology, pulmonology, nephrology, gastroenterology, and hepatology 7) Follow-up with social media marketing specialist r/t polysubstance abuse 8) Continue to monitor I&O, labs, and skin integrity Expected Outcomes/Goals: 1) patient to receive nutrition support within 7 days of NPO status 2) labs and GI symptoms to improve 3) diet to advance 4) f/u in 2-3 days Plan discussed with: Other (None) PALMIRA OCHOA MD Feb 05, 2025 18:52
[2025-02-05] MEDS: ALBUTEROL SULF 2.5 MG/0.5ML(0.5%) NEB SOLN NEB SCH (18:59)
[2025-02-05] MEDS: IPRATROPIUM BROM 0.5 MG/2.5ML INH SOL NEB SCH (19:00)
[2025-02-05] MEDS: ACETYLCYSTEINE 10 %(100MG/ML) SOL 4ML NEB SCH (22:34)
--- NOTE | 2025-02-05 22:57 | DVHINCON2 ---
DATE OF CONSULTATION: 02/05/2025 HISTORY OF PRESENT ILLNESS: This is a 60-year-old coming with past medical history of gout, not seen a physician for 3 years, coming to the hospital with severe back pain. CT showed thyroid nodule, hepatic steatosis, ____ retention, emphysema, pleural effusions and renal insufficiency. He developed severe tachycardia, hypertension, SVT requiring cardioversion, ____ assist and gotten intubated and he has been intubated and then transferred to the ICU. I was asked to see him in regards to placement of tracheostomy because he is ventilator dependent. PAST MEDICAL HISTORY: As mentioned above. PAST SURGICAL HISTORY: As above. PHYSICAL EXAMINATION: VITAL SIGNS: Afebrile. Vital signs are stable and extubation attempts have been made at this time. NECK: Supple and nontender, with no thyromegaly or lymphadenopathy. CHEST AND LUNGS: Clear. HEART: Within normal limits. ABDOMEN: Soft. NEUROLOGIC: Not assessed. EXTREMITIES: Unremarkable. CLINICAL IMPRESSION: Ventilator dependence and extubation considered and carried out. At this point, there is no indication for urgent elective tracheostomy. PLAN: Continue close observation. MD AYALA Garcia/PEREZ/NOEL/CHINTAN TID: [id number] RECEIPT: [id number] cc:
[2025-02-06] VITALS (88 sets, daily range): BP systolic 130–174; BP diastolic 74–124; PULSE 73–88; RESP 10–36; TEMP 98.1–99.7; O2SAT 96–100
[2025-02-06] MEDS: MORPHINE SULFATE 4 MG/ML SYR/VIAL IV ONE (01:38)
[2025-02-06 04:28] LABS: Hematocrit 30.9 % (41.0-53.0); Hemoglobin 10.4 g/dL (13.5-17.5); Mean Corpuscular Hemoglobin 28.2 pg (28.0-32.0); Mean Corpuscular Volume 84.1 fL (80.0-100.0); Nucleated Red Blood Cells % 0.0 %
[2025-02-06 04:32] LABS: Albumin 3.4 g/dL (3.2-4.8); Anion Gap 14 (5-15); BUN/Creatinine Ratio 36.0 (10.0-20.0); Bilirubin, Total 0.5 mg/dL (0.2-1.0); Calcium 9.2 mg/dL (8.7-10.4); Carbon Dioxide 23 mmol/L (20-31); Chloride 105 mmol/L (98-107); Potassium 4.1 mmol/L (3.5-5.1); Sodium 142 mmol/L (136-145); Total Protein 6.6 g/dL (5.7-8.2)
[2025-02-06 04:35] LABS: Alanine Aminotransferase 54 U/L (7-40); Alkaline Phosphatase 247 U/L (46-116); Blood Urea Nitrogen 36 mg/dL (9-23); Glucose 205 mg/dL (74-106)
[2025-02-06 04:41] LABS: Chloride 105 mmol/L (98-107); Potassium 4.1 mmol/L (3.5-5.1); Sodium 142 mmol/L (136-145)
[2025-02-06 04:42] LABS: Anion Gap 14 (5-15); Carbon Dioxide 23 mmol/L (20-31)
[2025-02-06 04:43] LABS: Calcium 9.1 mg/dL (8.7-10.4)
[2025-02-06 04:47] LABS: BUN/Creatinine Ratio 35.6 (10.0-20.0)
[2025-02-06 04:48] LABS: Blood Urea Nitrogen 36 mg/dL (9-23); Glucose 205 mg/dL (74-106); Uric Acid 12.8 mg/dL (3.7-9.2)
[2025-02-06 07:46] LABS: Base Excess -0.7 mmol/L (-2.0-3.0)
[2025-02-06] MEDS ORDERED: predniSONE 20 MG TAB PO SCH (10:00)
[2025-02-06] MEDS: COLCHICINE 0.6 MG CAP PO SCH (10:00)
[2025-02-06] MEDS: methylPREDNISolone SOD SUCC 40 MG/ML VL IV ONE (10:45)
--- NOTE | 2025-02-06 10:53 | DVHPN2 ---
Progress Note - Dictate Date Seen: Feb 06, 2025 Has the PT tested + for MRSA If YES, has PT been informed?: No Medical Necessity Reason Pt with a Central, PICC or Fol: Yes The following are medically ne: Central Line (Left non tunneled IJ and tunneled right subclavian), Young Catheter Reason for young catheter: Strict I&O vital signs Vital Sign Date Time Temp Pulse Resp B/P (MAP) Pulse Ox O2 Delivery O2 Flow Rate FiO2 02/06/25 09:59 82 24 100 02/06/25 09:51 Nasal Cannula* 1 24 02/06/25 09:15 99.1 161/85 (110) 210.4 Total Intake and Output 02/05/25 02/05/25 02/06/25 15:00 23:00 07:00 Intake Total 200 ml 200 ml 0 ml Output Total 1500 ml 1250 ml Balance 200 ml -1300 ml -1250 ml medications Current Medications Medications Dose Ordered Sig/Natividad Route Start Time Stop Time Status Last Admin Dose Admin Midazolam HCl 50 ml @ 1 mls/hr Q24H IV 01/19/25 11:15 01/30/25 15:01 5 MLS/HR Thiamine HCl 100 mg DAILY IV 01/20/25 10:00 02/05/25 10:49 100 MG Folic Acid 1 mg/ Dextrose 50.2 ml @ 200.8 mls/ hr DAILY INJ 01/20/25 10:00 02/05/25 10:00 200.8 MLS/HR Dextrose 50 ml UD PRN IV 01/19/25 13:15 Diagnostic Test (Pha) 1 strip Q6HR 01/23/25 10:00 02/06/25 05:32 1 STRIP Insulin Human Lispro Q6HR SC 01/23/25 10:00 02/06/25 05:37 2 UNITS Metoclopramide HCl 5 mg Q8HR IV 01/23/25 16:30 02/06/25 05:32 5 MG Norepinephrine Bitartrate 250 ml @ 3.75 mls/hr Q24H IV 01/26/25 14:30 Enteral Nutritional Formula 1,000 ml 50ML/HR GT 01/26/25 17:00 02/03/25 17:26 1,000 ML Sodium Chloride 10 ml QSHIFT@ IV 01/28/25 22:00 02/05/25 21:57 10 ML Lactulose 30 ml DAILY PRN PO 01/30/25 07:00 01/31/25 21:39 30 ML Pantoprazole Sodium 40 mg DAILY IV 01/30/25 10:00 02/05/25 10:49 40 MG Spironolactone 25 mg DAILY PO 01/31/25 10:00 02/05/25 10:49 25 MG Carvedilol 3.125 mg Q12HR PO 01/31/25 07:15 02/05/25 10:50 3.125 MG Furosemide 40 mg DAILY IV 01/31/25 10:00 02/05/25 14:52 40 MG Acetaminophen 650 mg Q6HP PRN PO 01/31/25 07:15 02/04/25 22:08 650 MG Levofloxacin/ Dextrose 100 ml @ 100 mls/hr DAILY@1800 IV 01/31/25 18:00 02/05/25 17:50 100 MLS/HR Purified Water 400 ml Q4HR GT 02/01/25 22:00 02/05/25 10:00 400 ML Enoxaparin Sodium 90 mg Q12HR SC 02/03/25 22:00 02/10/25 10:01 02/05/25 21:43 90 MG Colchicine 0.6 mg DAILY PO 02/06/25 10:00 Ipratropium [place] 0.5 mg Q4HWA [facility] 02/05/25 18:00 02/06/25 09:50 0.5 MG Albuterol 2.5 mg Q4HWA [facility] 02/05/25 18:00 02/06/25 09:51 2.5 MG Acetylcysteine 100 mg Q8HR [facility] 02/05/25 22:00 02/08/25 21:59 02/06/25 07:04 100 MG Methylprednisolone Sodium Succinate 40 mg DAILY IV 02/07/25 10:00 laboratory and microbiology Laboratory Tests 02/06/25 03:15 Test 02/06/25 03:15 Range/Units Serum Glucose 205 H 74-106 mg/dL Assessment/Plan Impression Acute hypoxic respiratory failure Hx of alcohol abuse Sepsis ESRD, on hemodialysis Obesity Events: S/p extubation, transitioned to face-mask more awake following commands vs stable Labs and imaging reviewed ABG reviewed Management Supplemental oxygen Titrate to maintain sats 90% or above Incentive spirometry Aspiration precautions NPO swallow eval Continue antibiotics. Monitor hemoglobin HD per Nephrology Monitor renal function Monitor electrolytes. Supplement as necessary. Monitor ins and outs. Maintain euvolemia PT Crit care time 35 min Dietary Evaluation Review Comments: 1) Initiate Nephro-Haritha @ 1 tb qd 2) If patient remains NPO > 7 days, consider EN/TPN to meet at least 75% of estimated daily needs 3) If GI route is preferred, consider Nepro CarbSteady @ 30 mL/hr goal rate as tolerated. EN regimen will provide 1296 kcals. 58g Pro, and 523 mL free H2O per 24 hrs. Goal rate will meet ~ 92% estimated daily energy needs and ~ 43% estimated daily protein needs. 4) Advance to 60g CCHO renal diet when medically feasible, pending ST approal 5) Refer to outpatient RD/CDCES for weight management 6) Follow-up with cardiology, pulmonology, nephrology, gastroenterology, and hepatology 7) Follow-up with social worker clinical r/t polysubstance abuse 8) Continue to monitor I&O, labs, and skin integrity Expected Outcomes/Goals: 1) patient to receive nutrition support within 7 days of NPO status 2) labs and GI symptoms to improve 3) diet to advance 4) f/u in 2-3 days Plan discussed with: Spouse JONNATHAN FELICIANO MD Feb 06, 2025 10:53
[2025-02-06] MEDS: KETOROLAC TROMETH 30 MG/ML 1ML VIAL IV ONE (11:24)
--- NOTE | 2025-02-06 17:51 | DVHPN2 ---
Progress Note Date Seen: Feb 06, 2025 Resident Creating Document: NATALY BURNETTE RESIDENT Has the PT tested + for MRSA If YES, has PT been informed?: No Medical Necessity Reason Pt with a Central, PICC or Fol: Yes The following are medically ne: Central Line (Left non tunneled IJ and tunneled right subclavian), Young Catheter Reason for young catheter: Strict I&O Subjective Review of Systems PT EXTUBATEd, NO STRIDOR NOTED. PT PLACED COOL MIST 10L 35%, SPO2 99%. Coarse breath sounds S/p extubation, transitioned to face-mask more awake following commands No GI bleeding; liver enzymes trending downward. * Enteral feeds advanced to 50 mL/hr, tolerated. NG tube feeds are on hold because there is difficulty placing the NG tube because of the localized tenderness and bleeding in the nose and difficulty to place the NG tube Starting Clinimix * multiple bowel movements have been recorded * No intraabdominal abscess or new GI pathology on CT. * WBC rise likely due to IV steroids; low-grade fever Objective vital signs Vital Sign Date Time Temp Pulse Resp B/P (MAP) Pulse Ox O2 Delivery O2 Flow Rate FiO2 02/06/25 17:30 98.1 74 20 151/83 (105) 98 208.6 02/06/25 16:00 Nasal Cannula* 2 28 Total Intake and Output 02/05/25 02/05/25 02/06/25 15:00 23:00 07:00 Intake Total 200 ml 200 ml 0 ml Output Total 1500 ml 1250 ml Balance 200 ml -1300 ml -1250 ml medications Current Medications Medications Dose Ordered Sig/Natividad Route Start Time Stop Time Status Last Admin Dose Admin Thiamine HCl 100 mg DAILY IV 01/20/25 10:00 02/06/25 11:23 100 MG Folic Acid 1 mg/ Dextrose 50.2 ml @ 200.8 mls/ hr DAILY INJ 01/20/25 10:00 02/06/25 10:00 200.8 MLS/HR Dextrose 50 ml UD PRN IV 01/19/25 13:15 Diagnostic Test (Pha) 1 strip Q6HR 01/23/25 10:00 02/06/25 12:40 1 STRIP Insulin Human Lispro Q6HR SC 01/23/25 10:00 02/06/25 12:00 1 UNITS Metoclopramide HCl 5 mg Q8HR IV 01/23/25 16:30 02/06/25 14:00 5 MG Enteral Nutritional Formula 1,000 ml 50ML/HR GT 01/26/25 17:00 02/03/25 17:26 1,000 ML Sodium Chloride 10 ml QSHIFT@10,22 IV 01/28/25 22:00 02/06/25 11:13 10 ML Lactulose 30 ml DAILY PRN PO 01/30/25 07:00 01/31/25 21:39 30 ML Pantoprazole Sodium 40 mg DAILY IV 01/30/25 10:00 02/06/25 11:22 40 MG Spironolactone 25 mg DAILY PO 01/31/25 10:00 02/05/25 10:49 25 MG Carvedilol 3.125 mg Q12HR PO 01/31/25 07:15 02/05/25 10:50 3.125 MG Acetaminophen 650 mg Q6HP PRN PO 01/31/25 07:15 02/04/25 22:08 650 MG Levofloxacin/ Dextrose 100 ml @ 100 mls/hr DAILY@1800 IV 01/31/25 18:00 02/05/25 17:50 100 MLS/HR Enoxaparin Sodium 90 mg Q12HR SC 02/03/25 22:00 02/10/25 10:01 02/06/25 11:24 90 MG Colchicine 0.6 mg DAILY PO 02/06/25 10:00 Ipratropium [place] 0.5 mg Q4HWA [facility] 02/05/25 18:00 02/06/25 14:01 0.5 MG Albuterol 2.5 mg Q4HWA [facility] 02/05/25 18:00 02/06/25 14:01 2.5 MG Acetylcysteine 100 mg Q8HR NEB 02/05/25 22:00 02/08/25 21:59 02/06/25 14:01 100 MG Methylprednisolone Sodium Succinate 40 mg DAILY IV 02/07/25 10:00 laboratory and microbiology Laboratory Tests 02/06/25 03:15 Test 02/06/25 03:15 Range/Units Serum Glucose 205 H 74-106 mg/dL Microbiology Date/Time Source Procedure Growth Status 01/30/25 11:27 Urine - Young Port Urine Culture - Final Complete 01/29/25 11:35 Sputum Gram Stain - Final Complete 01/29/25 11:35 Sputum Respiratory Culture - Final Complete 01/27/25 14:15 Blood Blood Culture - Final NO GROWTH AFTER 5 DAYS OF INCUBATION. Complete 01/23/25 20:14 Lung - Final Resulted 01/23/25 20:14 Lung - Final Resulted 01/23/25 20:14 Lung - Preliminary Resulted 01/23/25 20:14 Lung - Preliminary Resulted 01/23/25 20:14 Lung - Final See Separate Report... Resulted Problem List/Assessment/Plan Problem List/Assessment/Plan Assessment 1. Upper GI bleeding resolved/stable * No new bleeding; NG aspirate clear; H/H stable. 2. Alcoholic cirrhosis with portal hypertension, chronic liver disease * MELD remains high; LFTs elevated; continue monitoring. 2.Sepsis associated hepatic dysfunction 3. Critical illness with gastroparesis improving with prokinetic therapy. 4. Constipation persistent despite regimen, possibly opioid/sedation related. 5. Sepsis with WBC spike on antibiotics; respiratory culture positive for Lelo (likely colonization vs. infection). 6. Enteral feeding well tolerated at 50 mL/hr. Plan GI System Gastrointestinal / Nutrition We will re-evaluate him over the next 2-3 days if to see if the patient can pass a swallow eval START CLINIMIX Continue Nepro 50 cc/hr via OG tube IF THE PATIENT CAN TOLERATE NG TUBE PLACEMENT * Target caloric goals and adjust as per RD recommendations. * Monitor for signs of aspiration, diarrhea, distension, and high residuals. * Bowel regimen PRN monitor for diarrhea; stool studies if diarrhea persists >24 hours. * Monitor liver enzymes (ALT, AST, ALP, TBili) daily. Consider RUQ ultrasound if LFTs continues to raise or bilirubin raises. * Maintain IV Protonix 40 mg BID for stress ulcer and variceal prophylaxis. * Continue IV Reglan 5 mg q8h to improve gastric motility. * Maintain aspiration precautions (HOB >30). Hepatic * Daily LFTs, INR, ammonia, platelets * Avoid hepatotoxic drugs; monitor for encephalopathy. Case discussed in detail with the attending physician, including the clinical presentation, diagnostic workup, and comprehensive management plan. Plan discussed with: Other (RN) Dietary Evaluation Review Comments: 1) Initiate Nephro-Haritha @ 1 tb qd 2) If patient remains NPO > 7 days, consider EN/TPN to meet at least 75% of estimated daily needs 3) If GI route is preferred, consider Nepro CarbSteady @ 30 mL/hr goal rate as tolerated. EN regimen will provide 1296 kcals. 58g Pro, and 523 mL free H2O per 24 hrs. Goal rate will meet ~ 92% estimated daily energy needs and ~ 43% estimated daily protein needs. 4) Advance to 60g CCHO renal diet when medically feasible, pending ST approal 5) Refer to outpatient RD/CDCES for weight management 6) Follow-up with cardiology, pulmonology, nephrology, gastroenterology, and hepatology 7) Follow-up with director of social services r/t polysubstance abuse 8) Continue to monitor I&O, labs, and skin integrity Expected Outcomes/Goals: 1) patient to receive nutrition support within 7 days of NPO status 2) labs and GI symptoms to improve 3) diet to advance 4) f/u in 2-3 days NATALY BURNETTE RESIDENT Feb 06, 2025 17:51
[2025-02-06] MEDS ORDERED: CLINIMIX PER PHARMACY 0 ML IV SCH (18:00)
[2025-02-06] MEDS ORDERED: KETOROLAC TROMETH 30 MG/ML 1ML VIAL IV SCH (18:00)
--- NOTE | 2025-02-06 19:32 | DVHPNRES ---
Progress Note Date Seen: Feb 06, 2025 Resident Creating Document: SONA HEARD VANESSA Has the PT tested + for MRSA If YES, has PT been informed?: No Medical Necessity Reason Pt with a Central, PICC or Fol: Yes The following are medically ne: Central Line (Left non tunneled IJ and tunneled right subclavian), Young Catheter Reason for young catheter: Strict I&O Subjective Review of Systems Patient seen and examined at the bedside. Patient extubated yesterday. Patient is currently awake, following command, but could not speak. Objective vital signs Vital Sign Date Time Temp Pulse Resp B/P (MAP) Pulse Ox O2 Delivery O2 Flow Rate FiO2 02/06/25 19:15 98.1 83 23 164/94 (117) 100 208.6 02/06/25 18:59 Room Air* 0 21 Total Intake and Output 02/05/25 02/05/25 02/06/25 15:00 23:00 07:00 Intake Total 200 ml 200 ml 0 ml Output Total 1500 ml 1250 ml Balance 200 ml -1300 ml -1250 ml medications Current Medications Medications Dose Ordered Sig/Natividad Route Start Time Stop Time Status Last Admin Dose Admin Thiamine HCl 100 mg DAILY IV 01/20/25 10:00 02/06/25 11:23 100 MG Folic Acid 1 mg/ Dextrose 50.2 ml @ 200.8 mls/ hr DAILY INJ 01/20/25 10:00 02/06/25 10:00 200.8 MLS/HR Metoclopramide HCl 5 mg Q8HR IV 01/23/25 16:30 02/06/25 14:00 5 MG Enteral Nutritional Formula 1,000 ml 50ML/HR GT 01/26/25 17:00 02/03/25 17:26 1,000 ML Sodium Chloride 10 ml QSHIFT@10,22 IV 01/28/25 22:00 02/06/25 11:13 10 ML Lactulose 30 ml DAILY PRN PO 01/30/25 07:00 01/31/25 21:39 30 ML Pantoprazole Sodium 40 mg DAILY IV 01/30/25 10:00 02/06/25 11:22 40 MG Spironolactone 25 mg DAILY PO 01/31/25 10:00 02/05/25 10:49 25 MG Carvedilol 3.125 mg Q12HR PO 01/31/25 07:15 02/05/25 10:50 3.125 MG Acetaminophen 650 mg Q6HP PRN PO 01/31/25 07:15 02/04/25 22:08 650 MG Levofloxacin/ Dextrose 100 ml @ 100 mls/hr DAILY@1800 IV 01/31/25 18:00 02/06/25 17:47 100 MLS/HR Enoxaparin Sodium 90 mg Q12HR SC 02/03/25 22:00 02/10/25 10:01 02/06/25 11:24 90 MG Colchicine 0.6 mg DAILY PO 02/06/25 10:00 Ipratropium [place] 0.5 mg Q4HWA [facility] 02/05/25 18:00 02/06/25 18:59 0.5 MG Albuterol 2.5 mg Q4HWA [facility] 02/05/25 18:00 02/06/25 18:59 2.5 MG Acetylcysteine 100 mg Q8HR [facility] 02/05/25 22:00 02/08/25 21:59 02/06/25 14:01 100 MG Methylprednisolone Sodium Succinate 40 mg DAILY IV 02/07/25 10:00 Amino Acids 0 ml @ 0 mls/hr PER PHARMACY IV 02/06/25 18:00 Amino Acids/ Electrolytes/ Dextrose 1,000 ml @ 41 mls/hr DAILY@2200 IV 02/06/25 22:00 Diagnostic Test (Pha) 1 strip Q6HR 02/07/25 00:00 Insulin Human Regular FOLLOW SLIDING SCALE Q6HR SC 02/07/25 00:00 Dextrose 50 ml UD IV 02/06/25 22:00 Examination General Appearance: Alert, following command, but can not speak HEENT: Atraumatic, PERRLA, EOMI, Mucous membrane moist/pink Respiratory: Clear to auscultation, Normal air movement Cardiovascular: Regular rate, Normal S1, Normal S2, No murmurs, no chest wall tenderness Abdominal: Normal bowel sounds, Soft, No tenderness, No hepatospenomegaly, No masses Extremities: Bilateral ankle and left wrist swollen, warm and tender. Right hand distal phalanges or black (necrotic) Skin: No rashes, No breakdown, No significant lesion Neuro: Normal gait, Normal speech, Strength at 5/5 X4 ext, Normal tone, Sensation intact, Cranial nerves 3-12 NL, Reflexes 2+ Psych/Mental Status: Mental status NL, Mood NL laboratory and microbiology Laboratory Tests 02/06/25 03:15 Test 02/06/25 03:15 Range/Units Serum Glucose 205 H 74-106 mg/dL Microbiology Date/Time Source Procedure Growth Status 01/30/25 11:27 Urine - Young Port Urine Culture - Final Complete 01/29/25 11:35 Sputum Gram Stain - Final Complete 01/29/25 11:35 Sputum Respiratory Culture - Final Complete 01/27/25 14:15 Blood Blood Culture - Final NO GROWTH AFTER 5 DAYS OF INCUBATION. Complete 01/23/25 20:14 Lung - Final Resulted 01/23/25 20:14 Lung - Final Resulted 01/23/25 20:14 Lung - Preliminary Resulted 01/23/25 20:14 Lung - Preliminary Resulted 01/23/25 20:14 Lung - Final See Separate Report... Resulted Labs and/or images reviewed: Labs reviewed by me, Image(s) reviewed by me Problem List/Assessment/Plan Problem List/Assessment/Plan This is a 60-year-old male with past medical history of alcohol use disorder, current heavy smoker, gout, dyslipidemia, came to the hospital due to low back pain. On 2nd day of admission, the patient is stabilized, developed AFib and SVT, underwent cardioversion and adenosine was given subsequently, due to respiratory distress and inability to maintain respiratory tract, the patient was sedated, intubated and put on mechanical ventilation. NEURO: Acute metabolic/toxic encephalopathy likely due to sepsis/alcohol use disorder * Sedated, on MV with RASS score -4 * Head CT scan showed no significant intracranial abnormalities CARDIOVASCULAR: ? Cardiogenic shock, likely due to AFib with RVR/SVT Atrial fibrillation with RVR/SVT Acquired coagulopathy ? Acute on chronic Heart failure with reduced ejection fraction NSTEMI, likely type 2 due to above Sinus bradycardia Ruled out Endocarditis * Patient was 2 times reverted to NSR with cardioversion, subsequently put on amiodarone drip for 2 days, discontinued due to regaining sinus rhythm and bradycardia * EKG upon admission showed sinus rhythm with no significant ST or T-wave changes * Subsequent EKGs showed AFib with RVR and SVT, and reverted to normal sinus rhythm by giving amiodarone drip for 2 days * Echo shows, LVEF 45% severe pulmonary hypertension (RVSP 64) * BNP is raised at 450s * CLAUDE on 01/27/2025, normal study PULMONARY: Acute hypoxic respiratory failure, likely due to pneumonia Pneumonia, likely due to Gram-positive/Gram-negative bacteria/viral ? Pulmonary hypertension Possible obstructive sleep apnea Atelectasis * CT scan shows, bilateral small pleural effusion * Chest x-ray shows, closed left costophrenic angle * Bronchoscopy performed on 01/16/2024, had copious amount of mucus on bilateral main bronchus, sample sent for culture * Pulmonology is on the board * Breathing treatment and chest percussion q.4hr GASTROINTESTINAL: ? Upper GI bleeding, likely due to liver cirrhosis/portal hypertension Alcohol use disorder Hepatomegaly and hepatic steatosis, likely due to alcohol use disorder Splenomegaly, likely due to above Bilateral indirect inguinal hernia, fatigue content extending to the scrotum Diverticulosis * GI is on the board, recommended medical management at the moment * Thiamine and folic acid GENITOURINARY: JOSE on possible CKD, likely VMN (baseline record not available) * Nephrology on the board, performed 4 session of HD, last session on 01/26/2025, creatinine normalized ENDOCRINE: Newly diagnosed Diabetes, with hyperglycemia Dyslipidemia Thyroid nodule Obesity * HBA1c is 6.5 * Lispro subcutaneous q.6 hours METABOLIC: Gout Hypokalemia Hypocalcemia Hypertriglyceridemia, likely due to propofol side effects Mild hypernatremia HEME: Severe thrombocytopenia, likely due to liver cirrhosis, normalized Mild anemia, normocytic normochromic * Status post transfusion of 1 unit RBC, 1 units FFP, and 1 unit platelet INFECTIOUS DISEASE: ? Septic shock likely due to pneumonia/bacteremia Recurrent spikes of fever Possible drug fever * Blood culture shows Gram-negative right, Salmonella sensitive to ampicillin * Sputum culture shows E coli, sensitive to ampicillin * Vancomycin and cefepime was given for 5 days, DC on 01/15/2025 * Ampicillin IV started on 01/15/2025, due to episodes of fever, ampicillin discontinued on 01/24/2025 * Over 01/16/24, the patient had multiple episodes of fever, patient is started back on vancomycin and meropenem on 01/24/2025, stopped vancomycin on 01/30/25 (given for 6 days) for possible drug fever * Acetaminophen p.r.n. for fever * Consulted infectious disease for fever of unknown origin, recommended to discontinue other antibiotic and give levofloxacin for 2 weeks DERMATOLOGY: Right hand acute PAD/acute limb ischemia possibly due to arterial thrombosis, leading to possible right hand fingertip necrosis Right hand distal phalanges riding, likely due to radial artery thrombosis * Doppler ultrasound shows no significant arterial disease * Vascular surgeon consulted, performed right radial artery exploration with subsequent performed thrombectomy of the proximal radial artery, due to necrosis of distal phalanges of right hand, planned for amputation MUSCULOSKELETAL: Chronic back pain, due to severe lumbar disc disease Gout flare-up Uric acid is bed at 12.8 * Ketorolac 30 mg once * Methylprednisolone 40 mg daily DIET: Nepro 30 mL/hr DVT prophylax: Lovenox therapeutic dose started on 01/30/25 GI prophylaxis: Protonix 40 mg daily Bowel regimen: Lactulose 30 mg daily PRN Code status: Code status discussed with the family (son), full code LINES/DRAINS/ACCESS: * ETT: Intubated on 01/19/2025 and extubated on 02/05/2025 * Right subclavian tunneled catheter, placed on 01/26/2020 * Drips: All drips discontinued * Young catheter: Exchanged on 01/30/2025 DISPOSITION: ICU status Critical care time spent more than 75 minutes, including patient care, chart review, and updating the family. Excluding any procedure. Case discussed with Dr. Chadwick Plan discussed with: Patient, Spouse, Other (RN and sister) My Orders My Orders Orders - SONA HEARD RESDIVIRI Procedure Category Date Status Time Chest Percussion Tx RT 02/06/25 Logged SUB 10:07 Methylprednisolone PHA 02/07/25 In Process Sod Succ (Solu Medrol 10:00 Abg W/ Co-Ox RT 02/07/25 Logged 04:00 Chest Xray 1 View XY 02/07/25 Logged 04:00 Complete Blood Count LAB 02/07/25 Verified 04:00 Comprehensive LAB 02/07/25 Verified Metabolic Panel 04:00 Dietary Evaluation Review Comments: 1) Initiate Nephro-Haritha @ 1 tb qd 2) If patient remains NPO > 7 days, consider EN/TPN to meet at least 75% of estimated daily needs 3) If GI route is preferred, consider Nepro CarbSteady @ 30 mL/hr goal rate as tolerated. EN regimen will provide 1296 kcals. 58g Pro, and 523 mL free H2O per 24 hrs. Goal rate will meet ~ 92% estimated daily energy needs and ~ 43% estimated daily protein needs. 4) Advance to 60g CCHO renal diet when medically feasible, pending ST approal 5) Refer to outpatient RD/CDCES for weight management 6) Follow-up with cardiology, pulmonology, nephrology, gastroenterology, and hepatology 7) Follow-up with social sciences lecturer r/t polysubstance abuse 8) Continue to monitor I&O, labs, and skin integrity Expected Outcomes/Goals: 1) patient to receive nutrition support within 7 days of NPO status 2) labs and GI symptoms to improve 3) diet to advance 4) f/u in 2-3 days Date of Service: Feb 06, 2025 Billing Provider: PINA CHADWICK MD Common Visit Codes: [id number] INP/OBS CARE(HIGH) SONA HEARD RESDIENT Feb 06, 2025 19:32 PINA CHADWICK MD Feb 10, 2025 22:08
--- NOTE | 2025-02-06 20:53 | DVHPN2 ---
Assessment/Plan Assessment/Plan ICU note 60 yo M with gout admitted for back pain. This morning patient found to have elevated HR to 180s rapid response was called, patient was altered and BP was low. initial attempt done to give adenosine with no reduction in HR, patient received sync cardioversion with reversion to sinus tach that was only sustained for 1 minute which reverted back to SVT and started on amio drip. BP improved and patient was somewhat alert, given adenosine 12mg to attempt to re revert, which sustained less than a minute and now patient is in Afib with RVR. Patient was transferred to ICU, sustaining RVR, and more altered, decision made to intubate. Patient also has oral and nasal bleeding. After intubation patient persist to have low BP, started on peripheral pressor and placed TLC and a line. Discussion with renal initially patient was planned for possible dialysis if no improvement with IV diuretics. Patient however exhibit hypovolemic shock on POCUS and with the oral and nasal bleeding, possible alcohol use and cirrhosis, was started on rapid transfusion. Later he grows GNR in the blood. Empiric coverage with IV abx started. seen today, more alert, still not able to talk. swallow eval pending. discussed with vascular, will leat finger further demarcate to attempt to save more limb. plan for surgery under nerve block. Physical exam intubated, on mechanical ventilation obese off sedation equal pupil, minimal movement not following commands mechanical breath sounds distant heart sound abdomen distended no LE edema R UE finger dry gangrene prominent abdominal and varicose veins on LE Labs EKG imaging reviewed Assessment and plan acute metabolic / toxic encephalopathy acute hypoxic RF req mechanical ventilation septic vs hemorrhagic shock vs cardiogenic? possible acute on chronic diastolic HF possible cirrhosis acquired coagulopathy JOSE ATN on CKD? GNR bacteremia severe thrombocytopenia with active bleeding SVT now new onset afib with RVR possible alcohol withdrawal alcohol use gout flare c/w mech ventilation plan for trach and peg c/w pressors maintain MAP >65 off sedation id consult appreciated, on levo, still low grade fever persists vasc consult appreciated, plan for digital amputaion c/w amio oral insulin prednisone, morphine, colchicine swallow eval diet NPO dvt ppx therapeutic lovenx gi ppx protonix condition critical prognosis poor crit care time 35 mintues Plan discussed with: Patient Date of Service: Feb 06, 2025 Billing Provider: PINA FOX MD Common Visit Codes: [id number] CARE 30-74 MIN PINA FOX MD Feb 06, 2025 20:53
[2025-02-06] MEDS ORDERED: DEXTROSE (50%) 50ML SYRG IV SCH ×2 (21:00→22:00)
[2025-02-06] MEDS: ACCU-CHEK COMFORT CURVE STRIP VI SCH (22:00)
[2025-02-06] MEDS: AMINO ACID INFUSION IN D10W 1,000 ML IV SCH (22:41)
[2025-02-06] MEDS: INSULIN LISPRO (HUMAN) 100 UNITS/ML ML SC SCH (22:54)
[2025-02-06] MEDS: INSULIN LANTUS (GLARGINE) 1 /0.01ml (100units/ml) SC ONE (23:03)
[2025-02-07] VITALS (106 sets, daily range): BP systolic 111–203; BP diastolic 62–120; PULSE 71–102; RESP 8–30; TEMP 53.4–99.9; O2SAT 82–100
[2025-02-07] MEDS ORDERED: ACCU-CHEK COMFORT CURVE STRIP VI SCH
[2025-02-07] MEDS ORDERED: InsuLIN REG 1unit/0.01ml Soln (100units/ml) SC SCH
[2025-02-07] MEDS: LABETALOL HCL 20 MG/4 ML VL IV ONE ×2 (03:18→08:00)
[2025-02-07 04:26] LABS: Hematocrit 30.8 % (41.0-53.0); Hemoglobin 10.3 g/dL (13.5-17.5); Mean Corpuscular Hemoglobin 28.0 pg (28.0-32.0); Mean Corpuscular Volume 84.0 fL (80.0-100.0); Nucleated Red Blood Cells % 0.1 %
[2025-02-07 04:36] LABS: Magnesium 2.4 mg/dL (1.6-2.6)
[2025-02-07 04:43] LABS: Anion Gap 15 (5-15); BUN/Creatinine Ratio 42.6 (10.0-20.0); Bilirubin, Total 0.4 mg/dL (0.2-1.0); Carbon Dioxide 23 mmol/L (20-31); Potassium 4.2 mmol/L (3.5-5.1); Total Protein 6.0 g/dL (5.7-8.2)
[2025-02-07 04:50] LABS: Alanine Aminotransferase 66 U/L (7-40); Albumin 3.2 g/dL (3.2-4.8); Alkaline Phosphatase 233 U/L (46-116); Blood Urea Nitrogen 49 mg/dL (9-23); Calcium 8.5 mg/dL (8.7-10.4); Chloride 107 mmol/L (98-107); Glucose 266 mg/dL (74-106); Sodium 145 mmol/L (136-145)
--- NOTE | 2025-02-07 05:05 | DVH ---
CHEST RADIOGRAPH Indication: Pneumonia Technique: Single frontal view of the chest was obtained COMPARISON: XY CHEST PORTABLE on DOS: 02/05/25, XY CHEST XRAY 1 VIEW on DOS: 02/04/25, XY CHEST XRAY 1 V IEW on DOS: 02/03/25, XY CHEST XRAY 1 VIEW on DOS: 02/02/25, XY CHEST XRAY 1 VIEW on DOS: 02/02/25 FINDINGS: Lines and Tubes: Stable appearing left peripherally inserted central catheter and right permCath s/p interval extubation and removal of enteric catheter. Lungs: Clear Pleura: No effusion. No pneumothorax. Cardiomediastinal contours: Unremarkable Bones: Unremarkable IMPRESSION: 1. No acute disease. 2. Status post interval extubation and removal enteric catheter. [facility]
[2025-02-07] MEDS: INSULIN LANTUS (GLARGINE) 1 /0.01ml (100units/ml) SC SCH (05:57)
[2025-02-07] MEDS: CARVEDILOL 3.125 MG TAB PO SCH (09:26)
[2025-02-07] MEDS: LISINOPRIL 5 MG TAB PO ONE (09:26)
[2025-02-07] MEDS: methylPREDNISolone SOD SUCC 40 MG/ML VL IV SCH (10:12)
[2025-02-07] MEDS: EMPAGLIFLOZIN 10 MG TAB PO SCH (10:13)
--- NOTE | 2025-02-07 10:26 | DVH ---
LEFT Upper Extremity Venous Duplex Clinical History: SWELLING Comparison: US RT UPPER DVT on DOS: 01/31/25, US BILAT LOWER DVT on DOS: 01/30/25, XY INSERTION OF VENOUS CATH on DOS: 01/25/25, US RT UPPER EXT ART DUPLEX on DOS: 01/21/25 Findings: Duplex doppler evaluation of the venous system of the LEFT lower neck and upper extremity including c olor doppler and spectral/pulsed waveform analysis was performed. The internal jugular vein demonstrates appropriate compressibility and waveform variability. The subclavian vein is patent on color Doppler evaluation without intraluminal thrombus and demonstra nathaniel waveform variability. The visualized portion of the brachiocephalic vein is patent on color Doppler evaluation without intr aluminal thrombus and demonstrates waveform variability. The axillary vein demonstrates appropriate compressibility and waveform variability. The brachial veins demonstrate appropriate compressibility and patency on Doppler evaluation. The basilic vein demonstrates appropriate compressibility and patency on Doppler evaluation. The cephalic vein demonstrates appropriate compressibility and patency on Doppler evaluation. Impression: No venous thrombus identified in the LEFT upper extremity vessels evaluated above. If clinical concern/symptoms persist or worsen, short-interval follow-up study is suggested.
--- NOTE | 2025-02-07 14:25 | DVHPNRES ---
Progress Note Date Seen: Feb 07, 2025 Resident Creating Document: SONA HEARD VANESSA Has the PT tested + for MRSA If YES, has PT been informed?: No Medical Necessity Reason Pt with a Central, PICC or Fol: Yes The following are medically ne: Central Line (Left non tunneled IJ and tunneled right subclavian), Young Catheter Reason for young catheter: Strict I&O Subjective Review of Systems Patient seen and examined at bedside. Patient is status post extubation. Patient can follow up order. But still can not speak. Objective vital signs Vital Sign Date Time Temp Pulse Resp B/P (MAP) Pulse Ox O2 Delivery O2 Flow Rate FiO2 02/07/25 14:05 77 19 100 02/07/25 13:54 Room Air* 0 21 02/07/25 12:00 99.7 161/97 (118) 211.5 Total Intake and Output 02/06/25 02/06/25 02/07/25 15:00 23:00 07:00 Intake Total 41 ml 328 ml Output Total 900 ml 850 ml Balance -859 ml -522 ml medications Current Medications Medications Dose Ordered Sig/Natividad Route Start Time Stop Time Status Last Admin Dose Admin Thiamine HCl 100 mg DAILY IV 01/20/25 10:00 02/07/25 10:14 100 MG Folic Acid 1 mg/ Dextrose 50.2 ml @ 200.8 mls/ hr DAILY INJ 01/20/25 10:00 02/07/25 10:00 200.8 MLS/HR Metoclopramide HCl 5 mg Q8HR IV 01/23/25 16:30 02/07/25 04:56 5 MG Enteral Nutritional Formula 1,000 ml 50ML/HR GT 01/26/25 17:00 02/03/25 17:26 1,000 ML Sodium Chloride 10 ml QSHIFT@10,22 IV 01/28/25 22:00 02/07/25 10:13 10 ML Lactulose 30 ml DAILY PRN PO 01/30/25 07:00 01/31/25 21:39 30 ML Pantoprazole Sodium 40 mg DAILY IV 01/30/25 10:00 02/07/25 10:12 40 MG Spironolactone 25 mg DAILY PO 01/31/25 10:00 02/07/25 10:13 25 MG Acetaminophen 650 mg Q6HP PRN PO 01/31/25 07:15 02/04/25 22:08 650 MG Levofloxacin/ Dextrose 100 ml @ 100 mls/hr DAILY@1800 IV 01/31/25 18:00 02/06/25 17:47 100 MLS/HR Enoxaparin Sodium 90 mg Q12HR SC 02/03/25 22:00 02/10/25 10:01 02/07/25 10:13 90 MG Colchicine 0.6 mg DAILY PO 02/06/25 10:00 02/07/25 10:13 0.6 MG Ipratropium [place] 0.5 mg Q4HWA [facility] 02/05/25 18:00 02/07/25 13:54 0.5 MG Albuterol 2.5 mg Q4HWA [facility] 02/05/25 18:00 02/07/25 13:54 2.5 MG Acetylcysteine 100 mg Q8HR NEB 02/05/25 22:00 02/08/25 21:59 02/07/25 13:54 100 MG Methylprednisolone Sodium Succinate 40 mg DAILY IV 02/07/25 10:00 02/07/25 10:12 40 MG Amino Acids 0 ml @ 0 mls/hr PER PHARMACY IV 02/06/25 18:00 Insulin Human Lispro Q4HR SC 02/06/25 22:00 02/07/25 10:00 1 UNITS Insulin Glargine 13 units QAM SC 02/07/25 07:00 02/07/25 05:57 13 UNITS Dextrose 50 ml UD IV 02/06/25 21:00 Diagnostic Test (Pha) 1 strip Q4HR 02/06/25 22:00 02/07/25 10:14 1 STRIP Carvedilol 6.25 mg Q12HR PO 02/07/25 08:00 02/07/25 09:26 6.25 MG Empaglifozin 10 mg DAILY PO 02/07/25 10:00 02/07/25 10:13 10 MG Lisinopril 10 mg DAILY PO 02/08/25 10:00 Examination General Appearance: Alert, following command, but can not speak HEENT: Atraumatic, PERRLA, EOMI, Mucous membrane moist/pink Respiratory: Clear to auscultation, Normal air movement Cardiovascular: Regular rate, Normal S1, Normal S2, No murmurs, no chest wall tenderness Abdominal: Normal bowel sounds, Soft, No tenderness, No hepatospenomegaly, No masses Extremities: Bilateral ankle and left wrist swollen, warm and tender. Right hand distal phalanges or black (necrotic) Skin: No rashes, No breakdown, No significant lesion Neuro: Normal gait, Normal speech, Strength at 5/5 X4 ext, Normal tone, Sensation intact, Cranial nerves 3-12 NL, Reflexes 2+ Psych/Mental Status: Mental status NL, Mood NL laboratory and microbiology Laboratory Tests 02/07/25 03:06 Test 02/07/25 03:06 Range/Units Serum Glucose 266 H 74-106 mg/dL Microbiology Date/Time Source Procedure Growth Status 01/30/25 11:27 Urine - Young Port Urine Culture - Final Complete 01/29/25 11:35 Sputum Gram Stain - Final Complete 01/29/25 11:35 Sputum Respiratory Culture - Final Complete 01/27/25 14:15 Blood Blood Culture - Final NO GROWTH AFTER 5 DAYS OF INCUBATION. Complete 01/23/25 20:14 Lung - Final Resulted 01/23/25 20:14 Lung - Final Resulted 01/23/25 20:14 Lung - Preliminary Resulted 01/23/25 20:14 Lung - Preliminary Resulted 01/23/25 20:14 Lung - Final See Separate Report... Resulted Problem List/Assessment/Plan Problem List/Assessment/Plan This is a 60-year-old male with past medical history of alcohol use disorder, current heavy smoker, gout, dyslipidemia, came to the hospital due to low back pain. On 2nd day of admission, the patient is stabilized, developed AFib and SVT, underwent cardioversion and adenosine was given subsequently, due to respiratory distress and inability to maintain respiratory tract, the patient was sedated, intubated and put on mechanical ventilation. NEURO: Acute metabolic/toxic encephalopathy likely due to sepsis/alcohol use disorder * Sedated, on MV with RASS score -4 * Head CT scan showed no significant intracranial abnormalities CARDIOVASCULAR: ? Cardiogenic shock, likely due to AFib with RVR/SVT Atrial fibrillation with RVR/SVT Acquired coagulopathy ? Acute on chronic Heart failure with reduced ejection fraction NSTEMI, likely type 2 due to above Sinus bradycardia Ruled out Endocarditis * Patient was 2 times reverted to NSR with cardioversion, subsequently put on amiodarone drip for 2 days, discontinued due to regaining sinus rhythm and bradycardia * EKG upon admission showed sinus rhythm with no significant ST or T-wave changes * Subsequent EKGs showed AFib with RVR and SVT, and reverted to normal sinus rhythm by giving amiodarone drip for 2 days * Echo shows, LVEF 45% severe pulmonary hypertension (RVSP 64) * BNP is raised at 450s * CLAUDE on 01/27/2025, normal study PULMONARY: Acute hypoxic respiratory failure, likely due to pneumonia Pneumonia, likely due to Gram-positive/Gram-negative bacteria/viral ? Pulmonary hypertension Possible obstructive sleep apnea Atelectasis * CT scan shows, bilateral small pleural effusion * Chest x-ray shows, closed left costophrenic angle * Bronchoscopy performed on 01/16/2024, had copious amount of mucus on bilateral main bronchus, sample sent for culture * Pulmonology is on the board * Breathing treatment and chest percussion q.4hr GASTROINTESTINAL: ? Upper GI bleeding, likely due to liver cirrhosis/portal hypertension Alcohol use disorder Hepatomegaly and hepatic steatosis, likely due to alcohol use disorder Splenomegaly, likely due to above Bilateral indirect inguinal hernia, fatigue content extending to the scrotum Diverticulosis * GI is on the board, recommended medical management at the moment * Thiamine and folic acid GENITOURINARY: OJSE on possible CKD, likely VMN (baseline record not available) * Nephrology on the board, performed 4 session of HD, last session on 01/26/2025, creatinine normalized * Consulted Radiology for tunneled catheter removal ENDOCRINE: Newly diagnosed Diabetes, with hyperglycemia Dyslipidemia Thyroid nodule Obesity * HBA1c is 6.5 * Lispro subcutaneous q.6 hours METABOLIC: Gout Hypokalemia Hypocalcemia Hypertriglyceridemia, likely due to propofol side effects Mild hypernatremia HEME: Severe thrombocytopenia, likely due to liver cirrhosis, normalized Mild anemia, normocytic normochromic * Status post transfusion of 1 unit RBC, 1 units FFP, and 1 unit platelet INFECTIOUS DISEASE: ? Septic shock likely due to pneumonia/bacteremia Recurrent spikes of fever Possible drug fever * Blood culture shows Gram-negative right, Salmonella sensitive to ampicillin * Sputum culture shows E coli, sensitive to ampicillin * Vancomycin and cefepime was given for 5 days, DC on 01/15/2025 * Ampicillin IV started on 01/15/2025, due to episodes of fever, ampicillin discontinued on 01/24/2025 * Over 01/16/24, the patient had multiple episodes of fever, patient is started back on vancomycin and meropenem on 01/24/2025, stopped vancomycin on 01/30/25 (given for 6 days) for possible drug fever * Acetaminophen p.r.n. for fever * Consulted infectious disease for fever of unknown origin, recommended to discontinue other antibiotic and give levofloxacin for 2 weeks DERMATOLOGY: Right hand acute PAD/acute limb ischemia possibly due to arterial thrombosis, leading to possible right hand fingertip necrosis Right hand distal phalanges riding, likely due to radial artery thrombosis * Doppler ultrasound shows no significant arterial disease * Vascular surgeon consulted, performed right radial artery exploration with subsequent performed thrombectomy of the proximal radial artery, due to necrosis of distal phalanges of right hand, planned for amputation MUSCULOSKELETAL: Chronic back pain, due to severe lumbar disc disease Gout flare-up Uric acid is bed at 12.8 * Ketorolac 30 mg once * Methylprednisolone 40 mg daily DIET: Puree diet DVT prophylax: Lovenox therapeutic dose started on 01/30/25 GI prophylaxis: Protonix 40 mg daily Bowel regimen: Lactulose 30 mg daily PRN Code status: Code status discussed with the family (son), full code LINES/DRAINS/ACCESS: * ETT: Intubated on 01/19/2025 and extubated on 02/05/2025 * Right subclavian tunneled catheter, placed on 01/26/2020 * Drips: All drips discontinued * Young catheter: Exchanged on 01/30/2025 DISPOSITION: ICU status Critical care time spent more than 75 minutes, including patient care, chart review, and updating the family. Excluding any procedure. Case discussed with Dr. Chadwick Plan discussed with: Patient, Spouse, Other (RN) My Orders My Orders Orders - SONA HEARD RESDIVIRI Procedure Category Date Status Time Insulin Lispro PHA 02/06/25 In Process (Human) (Humalog) 22:00 Insulin Lantus PHA 02/07/25 In Process (Glargine) (Lantus) 07:00 Dextrose 50% Syringe PHA 02/06/25 In Process 21:00 Glucose Blood PHA 02/06/25 In Process (Accu-Chek Comfort 22:00 * Swallow Request ST 02/07/25 Transmitted 07:17 Lt Upper Dvt US 02/07/25 Resulted 07:07 Carvedilol Tablet PHA 02/07/25 In Process (Coreg Tablet) 08:00 Empagliflozin PHA 02/07/25 In Process (Jardiance) 10:00 Lisinopril Tablet PHA 02/08/25 In Process (Zestril Tablet) 10:00 * Radiologist Consult CONS 02/07/25 Transmitted 13:47 Pt Request For Service PT 02/07/25 Logged 13:56 Dietary Evaluation Review Comments: 1) Initiate Nephro-Haritha @ 1 tb qd 2) If patient remains NPO > 7 days, consider EN/TPN to meet at least 75% of estimated daily needs 3) If GI route is preferred, consider Nepro CarbSteady @ 30 mL/hr goal rate as tolerated. EN regimen will provide 1296 kcals. 58g Pro, and 523 mL free H2O per 24 hrs. Goal rate will meet ~ 92% estimated daily energy needs and ~ 43% estimated daily protein needs. 4) Advance to 60g CCHO renal diet when medically feasible, pending ST approal 5) Refer to outpatient RD/CDCES for weight management 6) Follow-up with cardiology, pulmonology, nephrology, gastroenterology, and hepatology 7) Follow-up with social media executive r/t polysubstance abuse 8) Continue to monitor I&O, labs, and skin integrity Expected Outcomes/Goals: 1) patient to receive nutrition support within 7 days of NPO status 2) labs and GI symptoms to improve 3) diet to advance 4) f/u in 2-3 days Date of Service: Feb 07, 2025 Billing Provider: PINA CHADWICK MD Common Visit Codes: [id number] INP/OBS CARE(HIGH) SONA HEARD RESDIENT Feb 07, 2025 14:25 PINA CHADWICK MD Feb 10, 2025 22:12
--- NOTE | 2025-02-07 18:06 | DVHPN2 ---
Progress Note Date Seen: Feb 07, 2025 Resident Creating Document: NATALY BURNETTE RESIDENT Has the PT tested + for MRSA If YES, has PT been informed?: No Medical Necessity Reason Pt with a Central, PICC or Fol: Yes The following are medically ne: Central Line (Left non tunneled IJ and tunneled right subclavian), Young Catheter Reason for young catheter: Strict I&O Subjective Review of Systems The patient was successfully extubated 2 days ago and is now breathing comfortably on room air. Today's progress- Passed bedside swallow evaluation today and was started on pureed diet. WBC count remains elevated at 11.9 but down from 12.5 yesterday. Hemoglobin at 10.3 slightly down from 10.4 yesterday. Liver enzymes remain elevated likely due to combination of chronic liver disease and recent sepsis, but trending towards improvement. Last bowel movement on 05 February that was soft Objective vital signs Vital Sign Date Time Temp Pulse Resp B/P (MAP) Pulse Ox O2 Delivery O2 Flow Rate FiO2 02/07/25 17:30 99.3 83 21 161/94 (116) 97 210.7 02/07/25 16:00 Room Air* 0 21 Total Intake and Output 02/06/25 02/06/25 02/07/25 15:00 23:00 07:00 Intake Total 41 ml 328 ml Output Total 900 ml 850 ml Balance -859 ml -522 ml medications Current Medications Medications Dose Ordered Sig/Natividad Route Start Time Stop Time Status Last Admin Dose Admin Thiamine HCl 100 mg DAILY IV 01/20/25 10:00 02/07/25 10:14 100 MG Folic Acid 1 mg/ Dextrose 50.2 ml @ 200.8 mls/ hr DAILY INJ 01/20/25 10:00 02/07/25 10:00 200.8 MLS/HR Metoclopramide HCl 5 mg Q8HR IV 01/23/25 16:30 02/07/25 15:43 5 MG Enteral Nutritional Formula 1,000 ml 50ML/HR GT 01/26/25 17:00 02/03/25 17:26 1,000 ML Sodium Chloride 10 ml QSHIFT@10,22 IV 01/28/25 22:00 02/07/25 10:13 10 ML Lactulose 30 ml DAILY PRN PO 01/30/25 07:00 01/31/25 21:39 30 ML Pantoprazole Sodium 40 mg DAILY IV 01/30/25 10:00 02/07/25 10:12 40 MG Spironolactone 25 mg DAILY PO 01/31/25 10:00 02/07/25 10:13 25 MG Acetaminophen 650 mg Q6HP PRN PO 01/31/25 07:15 02/04/25 22:08 650 MG Levofloxacin/ Dextrose 100 ml @ 100 mls/hr DAILY@1800 IV 01/31/25 18:00 02/07/25 17:46 100 MLS/HR Enoxaparin Sodium 90 mg Q12HR SC 02/03/25 22:00 02/10/25 10:01 02/07/25 10:13 90 MG Colchicine 0.6 mg DAILY PO 02/06/25 10:00 02/07/25 10:13 0.6 MG Ipratropium [place] 0.5 mg Q4HWA [facility] 02/05/25 18:00 02/07/25 13:54 0.5 MG Albuterol 2.5 mg Q4HWA [facility] 02/05/25 18:00 02/07/25 13:54 2.5 MG Acetylcysteine 100 mg Q8HR NEB 02/05/25 22:00 02/08/25 21:59 02/07/25 13:54 100 MG Methylprednisolone Sodium Succinate 40 mg DAILY IV 02/07/25 10:00 02/07/25 10:12 40 MG Insulin Human Lispro Q4HR SC 02/06/25 22:00 02/07/25 17:52 4 UNITS Insulin Glargine 13 units QAM SC 02/07/25 07:00 02/07/25 05:57 13 UNITS Dextrose 50 ml UD IV 02/06/25 21:00 Diagnostic Test (Pha) 1 strip Q4HR 02/06/25 22:00 02/07/25 17:46 1 STRIP Carvedilol 6.25 mg Q12HR PO 02/07/25 08:00 02/07/25 09:26 6.25 MG Empaglifozin 10 mg DAILY PO 02/07/25 10:00 02/07/25 10:13 10 MG Lisinopril 10 mg DAILY PO 02/08/25 10:00 Examination General Appearance: Alert, following command, but can not speak HEENT: Atraumatic, PERRLA, EOMI, Mucous membrane moist/pink Respiratory: Clear to auscultation, Normal air movement Cardiovascular: Regular rate, Normal S1, Normal S2, No murmurs, no chest wall tenderness Abdominal: Normal bowel sounds, Soft, No tenderness, No hepatospenomegaly, No masses Extremities: Bilateral ankle and left wrist swollen, warm and tender. Right hand distal phalanges or black (necrotic) laboratory and microbiology Laboratory Tests 02/07/25 03:06 Test 02/07/25 03:06 Range/Units Serum Glucose 266 H 74-106 mg/dL Microbiology Date/Time Source Procedure Growth Status 01/30/25 11:27 Urine - Young Port Urine Culture - Final Complete 01/29/25 11:35 Sputum Gram Stain - Final Complete 01/29/25 11:35 Sputum Respiratory Culture - Final Complete 01/27/25 14:15 Blood Blood Culture - Final NO GROWTH AFTER 5 DAYS OF INCUBATION. Complete 01/23/25 20:14 Lung - Final Resulted 01/23/25 20:14 Lung - Final Resulted 01/23/25 20:14 Lung - Preliminary Resulted 01/23/25 20:14 Lung - Preliminary Resulted 01/23/25 20:14 Lung - Final See Separate Report... Resulted Labs and/or images reviewed: Labs reviewed by me, Image(s) reviewed by me Problem List/Assessment/Plan Problem List/Assessment/Plan Assessment 1. Upper GI bleeding resolved/stable * No new bleeding; NG aspirate clear; H/H stable. 2. Alcoholic cirrhosis with portal hypertension, chronic liver disease * MELD remains high; LFTs elevated; continue monitoring. 2.Sepsis associated hepatic dysfunction 3. Critical illness with gastroparesis improving with prokinetic therapy. 4. Constipation persistent despite regimen, possibly opioid/sedation related. 5. Sepsis with WBC spike on antibiotics; respiratory culture positive for Lelo (likely colonization vs. infection). 6. Enteral feeding well tolerated at 50 mL/hr. Plan GI System Gastrointestinal / Nutrition The patient underwent successful swallow evaluation, diet advanced to pureed diet. Continue pureed diet, monitor for tolerance and aspiration signs. Continue daily bowel monitoring, maintain soft stool consistency. * Target caloric goals and adjust as per RD recommendations. * Monitor for signs of aspiration, diarrhea, distension, and high residuals. * Bowel regimen PRN monitor for diarrhea; stool studies if diarrhea persists >24 hours. * Monitor liver enzymes (ALT, AST, ALP, TBili) daily. Consider RUQ ultrasound if LFTs continues to raise or bilirubin raises. * Maintain IV Protonix 40 mg BID for stress ulcer and variceal prophylaxis. * Continue IV Reglan 5 mg q8h to improve gastric motility. * Maintain aspiration precautions (HOB >30). Hepatic * Daily LFTs, INR, ammonia, platelets * Avoid hepatotoxic drugs; monitor for encephalopathy. Case discussed in detail with the attending physician, including the clinical presentation, diagnostic workup, and comprehensive management plan. Plan discussed with: Patient, Spouse My Orders My Orders Orders - NATALY BURNETTE Procedure Category Date Status Time Clinimix Per Pharmacy [facility] 02/06/25 In Process 22:00 Clinimix Per Pharmacy [facility] 02/07/25 In Process 22:00 Dietary Evaluation Review Comments: 1) Initiate Nephro-Haritha @ 1 tb qd 2) If patient remains NPO > 7 days, consider EN/TPN to meet at least 75% of estimated daily needs 3) If GI route is preferred, consider Nepro CarbSteady @ 30 mL/hr goal rate as tolerated. EN regimen will provide 1296 kcals. 58g Pro, and 523 mL free H2O per 24 hrs. Goal rate will meet ~ 92% estimated daily energy needs and ~ 43% estimated daily protein needs. 4) Advance to 60g CCHO renal diet when medically feasible, pending ST approal 5) Refer to outpatient RD/CDCES for weight management 6) Follow-up with cardiology, pulmonology, nephrology, gastroenterology, and hepatology 7) Follow-up with nursing home social worker r/t polysubstance abuse 8) Continue to monitor I&O, labs, and skin integrity Expected Outcomes/Goals: 1) patient to receive nutrition support within 7 days of NPO status 2) labs and GI symptoms to improve 3) diet to advance 4) f/u in 2-3 days NATALY BURNETTE RESIDENT Feb 07, 2025 18:06
--- NOTE | 2025-02-07 18:25 | DVHPN2 ---
Progress Note - Dictate Date Seen: Feb 07, 2025 Has the PT tested + for MRSA If YES, has PT been informed?: No Medical Necessity Reason Pt with a Central, PICC or Fol: Yes The following are medically ne: Central Line (Left non tunneled IJ and tunneled right subclavian), Young Catheter Reason for young catheter: Strict I&O vital signs Vital Sign Date Time Temp Pulse Resp B/P (MAP) Pulse Ox O2 Delivery O2 Flow Rate FiO2 02/07/25 18:15 99.3 82 25 152/91 (111) 96 210.7 02/07/25 18:00 Room Air* 0 21 Total Intake and Output 02/06/25 02/06/25 02/07/25 15:00 23:00 07:00 Intake Total 41 ml 328 ml Output Total 900 ml 850 ml Balance -859 ml -522 ml medications Current Medications Medications Dose Ordered Sig/Natividad Route Start Time Stop Time Status Last Admin Dose Admin Thiamine HCl 100 mg DAILY IV 01/20/25 10:00 02/07/25 10:14 100 MG Folic Acid 1 mg/ Dextrose 50.2 ml @ 200.8 mls/ hr DAILY INJ 01/20/25 10:00 02/07/25 10:00 200.8 MLS/HR Metoclopramide HCl 5 mg Q8HR IV 01/23/25 16:30 02/07/25 15:43 5 MG Enteral Nutritional Formula 1,000 ml 50ML/HR GT 01/26/25 17:00 02/03/25 17:26 1,000 ML Sodium Chloride 10 ml QSHIFT@10,22 IV 01/28/25 22:00 02/07/25 10:13 10 ML Lactulose 30 ml DAILY PRN PO 01/30/25 07:00 01/31/25 21:39 30 ML Pantoprazole Sodium 40 mg DAILY IV 01/30/25 10:00 02/07/25 10:12 40 MG Spironolactone 25 mg DAILY PO 01/31/25 10:00 02/07/25 10:13 25 MG Acetaminophen 650 mg Q6HP PRN PO 01/31/25 07:15 02/04/25 22:08 650 MG Levofloxacin/ Dextrose 100 ml @ 100 mls/hr DAILY@1800 IV 01/31/25 18:00 02/07/25 17:46 100 MLS/HR Enoxaparin Sodium 90 mg Q12HR [place] 02/03/25 22:00 02/10/25 10:01 02/07/25 10:13 90 MG Colchicine 0.6 mg DAILY PO 02/06/25 10:00 02/07/25 10:13 0.6 MG Ipratropium [place] 0.5 mg Q4HWA [facility] 02/05/25 18:00 02/07/25 13:54 0.5 MG Albuterol 2.5 mg Q4HWA [facility] 02/05/25 18:00 02/07/25 13:54 2.5 MG Acetylcysteine 100 mg Q8HR [facility] 02/05/25 22:00 02/08/25 21:59 02/07/25 13:54 100 MG Methylprednisolone Sodium Succinate 40 mg DAILY IV 02/07/25 10:00 02/07/25 10:12 40 MG Insulin Human Lispro Q4HR [facility] 02/06/25 22:00 02/07/25 17:52 4 UNITS Insulin Glargine 13 units QAM [facility] 02/07/25 07:00 02/07/25 05:57 13 UNITS Dextrose 50 ml UD IV 02/06/25 21:00 Diagnostic Test (Pha) 1 strip Q4HR 02/06/25 22:00 02/07/25 17:46 1 STRIP Carvedilol 6.25 mg Q12HR PO 02/07/25 08:00 02/07/25 09:26 6.25 MG Empaglifozin 10 mg DAILY PO 02/07/25 10:00 02/07/25 10:13 10 MG Lisinopril 10 mg DAILY PO 02/08/25 10:00 laboratory and microbiology Laboratory Tests 02/07/25 03:06 Test 02/07/25 03:06 Range/Units Serum Glucose 266 H 74-106 mg/dL Assessment/Plan Impression Acute hypoxic respiratory failure Hx of alcohol abuse Sepsis ESRD, on hemodialysis Obesity Events: S/p extubation, transitioned to face-mask right hand noted dry gangrene of fingers \f/up with vascular sx management deferred vs stable pt following commands Labs and imaging reviewed ABG reviewed Management Supplemental oxygen Titrate to maintain sats 90% or above Incentive spirometry Aspiration precautions NPO swallow eval Continue antibiotics. Monitor hemoglobin HD per Nephrology Monitor renal function Monitor electrolytes. Supplement as necessary. Monitor ins and outs. Maintain euvolemia PT Crit care time 35 min Dietary Evaluation Review Comments: 1) Initiate Nephro-Haritha @ 1 tb qd 2) If patient remains NPO > 7 days, consider EN/TPN to meet at least 75% of estimated daily needs 3) If GI route is preferred, consider Nepro CarbSteady @ 30 mL/hr goal rate as tolerated. EN regimen will provide 1296 kcals. 58g Pro, and 523 mL free H2O per 24 hrs. Goal rate will meet ~ 92% estimated daily energy needs and ~ 43% estimated daily protein needs. 4) Advance to 60g CCHO renal diet when medically feasible, pending ST approal 5) Refer to outpatient RD/CDCES for weight management 6) Follow-up with cardiology, pulmonology, nephrology, gastroenterology, and hepatology 7) Follow-up with social media community manager r/t polysubstance abuse 8) Continue to monitor I&O, labs, and skin integrity Expected Outcomes/Goals: 1) patient to receive nutrition support within 7 days of NPO status 2) labs and GI symptoms to improve 3) diet to advance 4) f/u in 2-3 days Plan discussed with: Patient JONNATHAN FELICIANO MD Feb 07, 2025 18:25
[2025-02-08] VITALS (64 sets, daily range): BP systolic 102–156; BP diastolic 59–90; PULSE 72–99; RESP 14–31; TEMP 98–100.2; O2SAT 64–100
[2025-02-08 03:25] LABS: Hematocrit 28.1 % (41.0-53.0); Hemoglobin 9.3 g/dL (13.5-17.5); Mean Corpuscular Hemoglobin 27.9 pg (28.0-32.0); Mean Corpuscular Volume 84.2 fL (80.0-100.0)
[2025-02-08 03:32] LABS: Anion Gap 13 (5-15); Carbon Dioxide 21 mmol/L (20-31); Potassium 4.0 mmol/L (3.5-5.1)
[2025-02-08 03:34] LABS: Calcium 8.5 mg/dL (8.7-10.4); Chloride 111 mmol/L (98-107); Sodium 145 mmol/L (136-145)
[2025-02-08 03:38] LABS: BUN/Creatinine Ratio 33.7 (10.0-20.0)
[2025-02-08 03:55] LABS: Blood Urea Nitrogen 60 mg/dL (9-23); Glucose 173 mg/dL (74-106)
[2025-02-08 04:16] LABS: Total Cells Counted 100.0 (100)
[2025-02-08] MEDS: SODIUM CHLORIDE 0.9% 500 ML IV ONE (10:15)
[2025-02-08] MEDS: LISINOPRIL 5 MG TAB PO SCH (10:25)
[2025-02-08] MEDS: LIDOCAINE 2%HCL (LOCAL ANESTH.) INJ 10ml MDV ONE (12:04)
--- NOTE | 2025-02-08 13:30 | DVH ---
INDICATION: Post TD Cath removal TECHNIQUE: Frontal view of the chest. COMPARISON: XY CHEST XRAY 1 VIEW on DOS: 02/07/25, XY CHEST PORTABLE on DOS: 02/05/25, XY CHEST XRAY 1 VIEW on DOS: 02/04/25, XY CHEST XRAY 1 VIEW on DOS: 02/03/25, XY CHEST XRAY 1 VIEW on DOS: 02/02/25 FINDINGS: Left PICC with tip in SVC. The heart and mediastinal contours are grossly unremarkable. There is no evidence of pleural disease. The lungs are clear. The bony structures of the chest are intact with out fracture. IMPRESSION: 1. No evidence of acute disease.
[2025-02-08] MEDS: SODIUM CHLORIDE 0.9% 1,000 ML IV ONE (14:01)
--- NOTE | 2025-02-08 15:13 | DVHPNRES ---
Progress Note Date Seen: Feb 08, 2025 Resident Creating Document: SONA HEARD VANESSA Has the PT tested + for MRSA If YES, has PT been informed?: No Medical Necessity Reason Pt with a Central, PICC or Fol: Yes The following are medically ne: Central Line (Left non tunneled IJ and tunneled right subclavian), Young Catheter Reason for young catheter: Strict I&O Subjective Review of Systems Patient seen and examined at bedside. Patient is feeling better, currently can speak few words. Objective vital signs Vital Sign Date Time Temp Pulse Resp B/P (MAP) Pulse Ox O2 Delivery O2 Flow Rate FiO2 02/08/25 13:43 94 Room Air* 0 21 02/08/25 13:43 79 20 02/08/25 11:00 99.7 129/68 (88) 211.5 Total Intake and Output 02/07/25 02/07/25 02/08/25 14:59 22:59 06:59 Intake Total 369 ml 202 ml 100 ml Output Total 1225 ml 425 ml Balance 369 ml -1023 ml -325 ml medications Current Medications Medications Dose Ordered Sig/Natividad Route Start Time Stop Time Status Last Admin Dose Admin Thiamine HCl 100 mg DAILY IV 01/20/25 10:00 02/08/25 10:20 100 MG Folic Acid 1 mg/ Dextrose 50.2 ml @ 200.8 mls/ hr DAILY INJ 01/20/25 10:00 02/08/25 10:17 200.8 MLS/HR Metoclopramide HCl 5 mg Q8HR IV 01/23/25 16:30 02/08/25 14:05 5 MG Enteral Nutritional Formula 1,000 ml 50ML/HR GT 01/26/25 17:00 02/03/25 17:26 1,000 ML Sodium Chloride 10 ml QSHIFT@10,22 IV 01/28/25 22:00 02/08/25 10:22 10 ML Lactulose 30 ml DAILY PRN PO 01/30/25 07:00 01/31/25 21:39 30 ML Pantoprazole Sodium 40 mg DAILY IV 01/30/25 10:00 02/08/25 10:21 40 MG Spironolactone 25 mg DAILY PO 01/31/25 10:00 02/08/25 10:24 25 MG Acetaminophen 650 mg Q6HP PRN PO 01/31/25 07:15 02/08/25 00:57 650 MG Levofloxacin/ Dextrose 100 ml @ 100 mls/hr DAILY@1800 IV 01/31/25 18:00 02/07/25 17:46 100 MLS/HR Enoxaparin Sodium 90 mg Q12HR SC 02/03/25 22:00 02/10/25 10:01 02/08/25 10:26 90 MG Colchicine 0.6 mg DAILY PO 02/06/25 10:00 02/08/25 10:24 0.6 MG Ipratropium [place] 0.5 mg Q4HWA [facility] 02/05/25 18:00 02/08/25 13:42 0.5 MG Albuterol 2.5 mg Q4HWA [facility] 02/05/25 18:00 02/08/25 13:42 2.5 MG Acetylcysteine 100 mg Q8HR [facility] 02/05/25 22:00 02/08/25 21:59 02/08/25 13:42 100 MG Methylprednisolone Sodium Succinate 40 mg DAILY IV 02/07/25 10:00 02/08/25 10:23 40 MG Insulin Human Lispro Q4HR [place] 02/06/25 22:00 02/08/25 10:49 2 UNITS Insulin Glargine 13 units QAM SC 02/07/25 07:00 02/08/25 06:08 13 UNITS Dextrose 50 ml UD IV 02/06/25 21:00 Diagnostic Test (Pha) 1 strip Q4HR 02/06/25 22:00 02/08/25 10:26 1 STRIP Carvedilol 6.25 mg Q12HR PO 02/07/25 08:00 02/08/25 10:24 6.25 MG Empaglifozin 10 mg DAILY PO 02/07/25 10:00 02/08/25 10:25 10 MG Lisinopril 10 mg DAILY PO 02/08/25 10:00 02/08/25 10:25 10 MG Examination General Appearance: Alert, following command, can speak few words HEENT: Atraumatic, PERRLA, EOMI, Mucous membrane moist/pink Respiratory: Clear to auscultation, Normal air movement Cardiovascular: Regular rate, Normal S1, Normal S2, No murmurs, no chest wall tenderness Abdominal: Normal bowel sounds, Soft, No tenderness, No hepatospenomegaly, No masses Extremities: Bilateral ankle and left wrist swollen, warm and tender. Right hand distal phalanges or black (necrotic) Skin: No rashes, No breakdown, No significant lesion Neuro: Normal gait, Normal speech, Strength at 5/5 X4 ext, Normal tone, Sensation intact, Cranial nerves 3-12 NL, Reflexes 2+ Psych/Mental Status: Mental status NL, Mood NL laboratory and microbiology Laboratory Tests 02/08/25 02:44 Test 02/08/25 02:44 Range/Units Serum Glucose 173 H 74-106 mg/dL Microbiology Date/Time Source Procedure Growth Status 01/30/25 11:27 Urine - Young Port Urine Culture - Final Complete 01/29/25 11:35 Sputum Gram Stain - Final Complete 01/29/25 11:35 Sputum Respiratory Culture - Final Complete 01/27/25 14:15 Blood Blood Culture - Final NO GROWTH AFTER 5 DAYS OF INCUBATION. Complete 01/23/25 20:14 Lung - Final Resulted 01/23/25 20:14 Lung - Final Resulted 01/23/25 20:14 Lung - Preliminary Resulted 01/23/25 20:14 Lung - Preliminary Resulted 01/23/25 20:14 Lung - Final See Separate Report... Resulted Labs and/or images reviewed: Labs reviewed by me, Image(s) reviewed by me Problem List/Assessment/Plan Problem List/Assessment/Plan This is a 60-year-old male with past medical history of alcohol use disorder, current heavy smoker, gout, dyslipidemia, came to the hospital due to low back pain. On 2nd day of admission, the patient is stabilized, developed AFib and SVT, underwent cardioversion and adenosine was given subsequently, due to respiratory distress and inability to maintain respiratory tract, the patient was sedated, intubated and put on mechanical ventilation. NEURO: Acute metabolic/toxic encephalopathy likely due to sepsis/alcohol use disorder * Sedated, on MV with RASS score -4 * Head CT scan showed no significant intracranial abnormalities CARDIOVASCULAR: ? Cardiogenic shock, likely due to AFib with RVR/SVT Atrial fibrillation with RVR/SVT Acquired coagulopathy ? Acute on chronic Heart failure with reduced ejection fraction NSTEMI, likely type 2 due to above Sinus bradycardia Ruled out Endocarditis * Patient was 2 times reverted to NSR with cardioversion, subsequently put on amiodarone drip for 2 days, discontinued due to regaining sinus rhythm and bradycardia * EKG upon admission showed sinus rhythm with no significant ST or T-wave changes * Subsequent EKGs showed AFib with RVR and SVT, and reverted to normal sinus rhythm by giving amiodarone drip for 2 days * Echo shows, LVEF 45% severe pulmonary hypertension (RVSP 64) * BNP is raised at 450s * CLAUDE on 01/27/2025, normal study PULMONARY: Acute hypoxic respiratory failure, likely due to pneumonia Pneumonia, likely due to Gram-positive/Gram-negative bacteria/viral ? Pulmonary hypertension Possible obstructive sleep apnea Atelectasis * CT scan shows, bilateral small pleural effusion * Chest x-ray shows, closed left costophrenic angle * Bronchoscopy performed on 01/16/2024, had copious amount of mucus on bilateral main bronchus, sample sent for culture * Pulmonology is on the board * Breathing treatment and chest percussion q.4hr GASTROINTESTINAL: ? Upper GI bleeding, likely due to liver cirrhosis/portal hypertension Alcohol use disorder Hepatomegaly and hepatic steatosis, likely due to alcohol use disorder Splenomegaly, likely due to above Bilateral indirect inguinal hernia, fatigue content extending to the scrotum Diverticulosis * GI is on the board, recommended medical management at the moment * Thiamine and folic acid GENITOURINARY: JOSE on possible CKD, likely VMN (baseline record not available) * Nephrology on the board, performed 4 session of HD, last session on 01/26/2025, creatinine normalized * Consulted Radiology for tunneled catheter removal, removed catheter ENDOCRINE: Newly diagnosed Diabetes, with hyperglycemia Dyslipidemia Thyroid nodule Obesity * HBA1c is 6.5 * Lispro subcutaneous q.6 hours METABOLIC: Gout Hypokalemia Hypocalcemia Hypertriglyceridemia, likely due to propofol side effects Mild hypernatremia HEME: Severe thrombocytopenia, likely due to liver cirrhosis, normalized Mild anemia, normocytic normochromic * Status post transfusion of 1 unit RBC, 1 units FFP, and 1 unit platelet INFECTIOUS DISEASE: ? Septic shock likely due to pneumonia/bacteremia Recurrent spikes of fever Possible drug fever * Blood culture shows Gram-negative right, Salmonella sensitive to ampicillin * Sputum culture shows E coli, sensitive to ampicillin * Vancomycin and cefepime was given for 5 days, DC on 01/15/2025 * Ampicillin IV started on 01/15/2025, due to episodes of fever, ampicillin discontinued on 01/24/2025 * Over 01/16/24, the patient had multiple episodes of fever, patient is started back on vancomycin and meropenem on 01/24/2025, stopped vancomycin on 01/30/25 (given for 6 days) for possible drug fever * Acetaminophen p.r.n. for fever * Consulted infectious disease for fever of unknown origin, recommended to discontinue other antibiotic and give levofloxacin for 2 weeks DERMATOLOGY: Right hand acute PAD/acute limb ischemia possibly due to arterial thrombosis, leading to possible right hand fingertip necrosis Right hand distal phalanges riding, likely due to radial artery thrombosis * Doppler ultrasound shows no significant arterial disease * Vascular surgeon consulted, performed right radial artery exploration with subsequent performed thrombectomy of the proximal radial artery, due to necrosis of distal phalanges of right hand, planned for amputation MUSCULOSKELETAL: Chronic back pain, due to severe lumbar disc disease Gout flare-up Uric acid is bed at 12.8 * Ketorolac 30 mg once * Methylprednisolone 40 mg daily DIET: Puree diet DVT prophylax: Lovenox therapeutic dose started on 01/30/25 GI prophylaxis: Protonix 40 mg daily Bowel regimen: Lactulose 30 mg daily PRN Code status: Code status discussed with the family (son), full code LINES/DRAINS/ACCESS: * ETT: Intubated on 01/19/2025 and extubated on 02/05/2025 * Right subclavian tunneled catheter, placed on 01/26/2020, removed on 02/08/2025 * Drips: All drips discontinued * Young catheter: Exchanged on 01/30/2025 DISPOSITION: Downgraded to med/surge with sitter Critical care time spent more than 30 minutes. Case discussed with Dr. Chadwick Plan discussed with: Patient, Spouse, Other (RN) My Orders My Orders Orders - SONA HEARD RESDIENT Procedure Category Date Status Time Pt Request For Service PT 02/08/25 Logged 09:45 Sodium Chloride 0.9% PHA 02/08/25 In Process 10:30 Transfer Orders XFER 02/08/25 Transmitted 10:18 Communication Order ORDERS 02/08/25 Transmitted 10:18 Sitter At Bedside ORDERS 02/08/25 Transmitted 12:00 Dietary Evaluation Review Comments: 1) Initiate Nephro-Haritha @ 1 tb qd 2) If patient remains NPO > 7 days, consider EN/TPN to meet at least 75% of estimated daily needs 3) If GI route is preferred, consider Nepro CarbSteady @ 30 mL/hr goal rate as tolerated. EN regimen will provide 1296 kcals. 58g Pro, and 523 mL free H2O per 24 hrs. Goal rate will meet ~ 92% estimated daily energy needs and ~ 43% estimated daily protein needs. 4) Advance to 60g CCHO renal diet when medically feasible, pending ST approal 5) Refer to outpatient RD/CDCES for weight management 6) Follow-up with cardiology, pulmonology, nephrology, gastroenterology, and hepatology 7) Follow-up with social media designer r/t polysubstance abuse 8) Continue to monitor I&O, labs, and skin integrity Expected Outcomes/Goals: 1) patient to receive nutrition support within 7 days of NPO status 2) labs and GI symptoms to improve 3) diet to advance 4) f/u in 2-3 days Date of Service: Feb 08, 2025 Billing Provider: PINA CHADWICK MD Common Visit Codes: [id number] INP/OBS CARE(HIGH) SONA HEARD RESDIENT Feb 08, 2025 15:12 PINA CHADWICK MD Feb 10, 2025 22:34
--- NOTE | 2025-02-08 16:52 | DVHPN2 ---
Progress Note - Dictate Date Seen: Feb 08, 2025 Has the PT tested + for MRSA If YES, has PT been informed?: No Medical Necessity Reason Pt with a Central, PICC or Fol: Yes The following are medically ne: Central Line (Left non tunneled IJ and tunneled right subclavian), Young Catheter Reason for young catheter: Strict I&O vital signs Vital Sign Date Time Temp Pulse Resp B/P (MAP) Pulse Ox O2 Delivery O2 Flow Rate FiO2 02/08/25 16:00 99.2 75 21 137/75 (95) 96 99.2 02/08/25 16:00 Room Air* 0 21 Total Intake and Output 02/07/25 02/07/25 02/08/25 15:00 23:00 07:00 Intake Total 369 ml 161 ml 100 ml Output Total 1225 ml 425 ml Balance 369 ml -1064 ml -325 ml medications Current Medications Medications Dose Ordered Sig/Natividad Route Start Time Stop Time Status Last Admin Dose Admin Thiamine HCl 100 mg DAILY IV 01/20/25 10:00 02/08/25 10:20 100 MG Folic Acid 1 mg/ Dextrose 50.2 ml @ 200.8 mls/ hr DAILY INJ 01/20/25 10:00 02/08/25 10:17 200.8 MLS/HR Metoclopramide HCl 5 mg Q8HR IV 01/23/25 16:30 02/08/25 14:05 5 MG Enteral Nutritional Formula 1,000 ml 50ML/HR GT 01/26/25 17:00 02/03/25 17:26 1,000 ML Sodium Chloride 10 ml QSHIFT@10,22 IV 01/28/25 22:00 02/08/25 10:22 10 ML Lactulose 30 ml DAILY PRN PO 01/30/25 07:00 01/31/25 21:39 30 ML Pantoprazole Sodium 40 mg DAILY IV 01/30/25 10:00 02/08/25 10:21 40 MG Spironolactone 25 mg DAILY PO 01/31/25 10:00 02/08/25 10:24 25 MG Acetaminophen 650 mg Q6HP PRN PO 01/31/25 07:15 02/08/25 00:57 650 MG Levofloxacin/ Dextrose 100 ml @ 100 mls/hr DAILY@1800 IV 01/31/25 18:00 02/07/25 17:46 100 MLS/HR Enoxaparin Sodium 90 mg Q12HR [place] 02/03/25 22:00 02/10/25 10:01 02/08/25 10:26 90 MG Colchicine 0.6 mg DAILY PO 02/06/25 10:00 02/08/25 10:24 0.6 MG Ipratropium [place] 0.5 mg Q4HWA [facility] 02/05/25 18:00 02/08/25 13:42 0.5 MG Albuterol 2.5 mg Q4HWA [facility] 02/05/25 18:00 02/08/25 13:42 2.5 MG Acetylcysteine 100 mg Q8HR [facility] 02/05/25 22:00 02/08/25 21:59 02/08/25 13:42 100 MG Methylprednisolone Sodium Succinate 40 mg DAILY IV 02/07/25 10:00 02/08/25 10:23 40 MG Insulin Glargine 13 units QAM SC 02/07/25 07:00 02/08/25 06:08 13 UNITS Dextrose 50 ml UD IV 02/06/25 21:00 Carvedilol 6.25 mg Q12HR PO 02/07/25 08:00 02/08/25 10:24 6.25 MG Empaglifozin 10 mg DAILY PO 02/07/25 10:00 02/08/25 10:25 10 MG Lisinopril 10 mg DAILY PO 02/08/25 10:00 02/08/25 10:25 10 MG Diagnostic Test (Pha) 1 strip Q6HR 02/08/25 18:00 UNV Insulin Human Lispro Q6HR [place] 02/08/25 18:00 UNV laboratory and microbiology Laboratory Tests 02/08/25 02:44 Test 02/08/25 02:44 Range/Units Serum Glucose 173 H 74-106 mg/dL Assessment/Plan Impression Acute hypoxic respiratory failure Hx of alcohol abuse Sepsis ESRD, on hemodialysis Obesity Events: S/p extubation, transitioned to face-mask right hand noted dry gangrene of fingers f/up with vascular sx, awaiting procedure Labs and imaging reviewed ABG reviewed Management Supplemental oxygen Titrate to maintain sats 90% or above Incentive spirometry Aspiration precautions NPO swallow eval Continue antibiotics. Monitor hemoglobin HD per Nephrology Monitor renal function Monitor electrolytes. Supplement as necessary. Monitor ins and outs. Maintain euvolemia PT Crit care time 35 min Dietary Evaluation Review Comments: 1) Initiate Nephro-Haritha @ 1 tb qd 2) If patient remains NPO > 7 days, consider EN/TPN to meet at least 75% of estimated daily needs 3) If GI route is preferred, consider Nepro CarbSteady @ 30 mL/hr goal rate as tolerated. EN regimen will provide 1296 kcals. 58g Pro, and 523 mL free H2O per 24 hrs. Goal rate will meet ~ 92% estimated daily energy needs and ~ 43% estimated daily protein needs. 4) Advance to 60g CCHO renal diet when medically feasible, pending ST approal 5) Refer to outpatient RD/CDCES for weight management 6) Follow-up with cardiology, pulmonology, nephrology, gastroenterology, and hepatology 7) Follow-up with social work supervisor r/t polysubstance abuse 8) Continue to monitor I&O, labs, and skin integrity Expected Outcomes/Goals: 1) patient to receive nutrition support within 7 days of NPO status 2) labs and GI symptoms to improve 3) diet to advance 4) f/u in 2-3 days Plan discussed with: Patient JONNATHAN FELICIANO MD Feb 08, 2025 16:52
--- NOTE | 2025-02-08 17:06 | DVHPN2 ---
Progress Note Date Seen: Feb 08, 2025 Resident Creating Document: NATALY BURNETTE RESIDENT Has the PT tested + for MRSA If YES, has PT been informed?: No Medical Necessity Reason Pt with a Central, PICC or Fol: Yes The following are medically ne: Central Line (Left non tunneled IJ and tunneled right subclavian), Young Catheter Reason for young catheter: Strict I&O Subjective Review of Systems TODAY'S PROGRESS Currently tolerating oral intake-pureed diet initiated after swallow evaluation, now advanced diet as tolerated. No nausea, vomiting, abdominal pain or GI bleeding reported. Bowel function preserved-regular bowel movements documented. Liver enzymes remain elevated but stable, consistent with chronic liver disease and prior sepsis related injury. Completed prior antibiotic therapy for salmonella bacteremia and sputum yeast colonization antibiotic guidance as per ID. Patient's WBC count elevated to 16.4 from yesterday that is 11.9. The plan is for outpatient EGD and colonoscopy after discharge to assess for varices, portal hypertension changes, and colorectal pathology, to evaluate for chronic hepatitis and other chronic liver disease etiology Objective vital signs Vital Sign Date Time Temp Pulse Resp B/P (MAP) Pulse Ox O2 Delivery O2 Flow Rate FiO2 02/08/25 16:00 99.2 75 21 137/75 (95) 96 99.2 02/08/25 16:00 Room Air* 0 21 Total Intake and Output 02/07/25 02/07/25 02/08/25 14:59 22:59 06:59 Intake Total 369 ml 202 ml 100 ml Output Total 1225 ml 425 ml Balance 369 ml -1023 ml -325 ml medications Current Medications Medications Dose Ordered Sig/Natividad Route Start Time Stop Time Status Last Admin Dose Admin Thiamine HCl 100 mg DAILY IV 01/20/25 10:00 02/08/25 10:20 100 MG Folic Acid 1 mg/ Dextrose 50.2 ml @ 200.8 mls/ hr DAILY INJ 01/20/25 10:00 02/08/25 10:17 200.8 MLS/HR Metoclopramide HCl 5 mg Q8HR IV 01/23/25 16:30 02/08/25 14:05 5 MG Enteral Nutritional Formula 1,000 ml 50ML/HR GT 01/26/25 17:00 02/03/25 17:26 1,000 ML Sodium Chloride 10 ml QSHIFT@10,22 IV 01/28/25 22:00 02/08/25 10:22 10 ML Lactulose 30 ml DAILY PRN PO 01/30/25 07:00 01/31/25 21:39 30 ML Pantoprazole Sodium 40 mg DAILY IV 01/30/25 10:00 02/08/25 10:21 40 MG Spironolactone 25 mg DAILY PO 01/31/25 10:00 02/08/25 10:24 25 MG Acetaminophen 650 mg Q6HP PRN PO 01/31/25 07:15 02/08/25 00:57 650 MG Levofloxacin/ Dextrose 100 ml @ 100 mls/hr DAILY@1800 IV 01/31/25 18:00 02/07/25 17:46 100 MLS/HR Enoxaparin Sodium 90 mg Q12HR [place] 02/03/25 22:00 02/10/25 10:01 02/08/25 10:26 90 MG Colchicine 0.6 mg DAILY PO 02/06/25 10:00 02/08/25 10:24 0.6 MG Ipratropium [place] 0.5 mg Q4HWA [facility] 02/05/25 18:00 02/08/25 13:42 0.5 MG Albuterol 2.5 mg Q4HWA [facility] 02/05/25 18:00 02/08/25 13:42 2.5 MG Acetylcysteine 100 mg Q8HR [facility] 02/05/25 22:00 02/08/25 21:59 02/08/25 13:42 100 MG Methylprednisolone Sodium Succinate 40 mg DAILY IV 02/07/25 10:00 02/08/25 10:23 40 MG Insulin Glargine 13 units QAM SC 02/07/25 07:00 02/08/25 06:08 13 UNITS Dextrose 50 ml UD IV 02/06/25 21:00 Carvedilol 6.25 mg Q12HR PO 02/07/25 08:00 02/08/25 10:24 6.25 MG Empaglifozin 10 mg DAILY PO 02/07/25 10:00 02/08/25 10:25 10 MG Lisinopril 10 mg DAILY PO 02/08/25 10:00 02/08/25 10:25 10 MG Diagnostic Test (Pha) 1 strip Q6HR 02/08/25 18:00 UNV Insulin Human Lispro Q6HR [place] 02/08/25 18:00 UNV Examination General Appearance: Alert, following command,can not speak HEENT: Atraumatic, PERRLA, EOMI, Mucous membrane moist/pink Respiratory: Clear to auscultation, Normal air movement Cardiovascular: Regular rate, Normal S1, Normal S2, No murmurs, no chest wall tenderness Abdominal: Normal bowel sounds, Soft, No tenderness, No hepatospenomegaly, No masses laboratory and microbiology Laboratory Tests 02/08/25 02:44 Test 02/08/25 02:44 Range/Units Serum Glucose 173 H 74-106 mg/dL Microbiology Date/Time Source Procedure Growth Status 01/30/25 11:27 Urine - Young Port Urine Culture - Final Complete 01/29/25 11:35 Sputum Gram Stain - Final Complete 01/29/25 11:35 Sputum Respiratory Culture - Final Complete 01/27/25 14:15 Blood Blood Culture - Final NO GROWTH AFTER 5 DAYS OF INCUBATION. Complete 01/23/25 20:14 Lung - Final Resulted 01/23/25 20:14 Lung - Final Resulted 01/23/25 20:14 Lung - Preliminary Resulted 01/23/25 20:14 Lung - Preliminary Resulted 01/23/25 20:14 Lung - Final See Separate Report... Resulted Problem List/Assessment/Plan Problem List/Assessment/Plan Assessment 1. Upper GI bleeding resolved/stable * No new bleeding; NG aspirate clear; H/H stable. 2. Alcoholic cirrhosis with portal hypertension, chronic liver disease * MELD remains high; LFTs elevated; continue monitoring. 2.Sepsis associated hepatic dysfunction 3. Critical illness with gastroparesis improving with prokinetic therapy. 4. Constipation persistent despite regimen, possibly opioid/sedation related. 5. Sepsis with WBC spike on antibiotics; respiratory culture positive for Lelo (likely colonization vs. infection). 6. Enteral feeding well tolerated at 50 mL/hr. Plan GI System Gastrointestinal / Nutrition Continue advancing oral diet as tolerated, maintain aspiration precautions. monitor for tolerance and aspiration signs. Continue daily bowel monitoring, maintain soft stool consistency. The patient EGD and colonoscopy and GI consult to be arranged after discharge for variceal screening, mucosal evaluation and colorectal cancer screening once the patient is stable for discharge * Target caloric goals and adjust as per RD recommendations. * Monitor for signs of aspiration, diarrhea, distension, and high residuals. * Bowel regimen PRN monitor for diarrhea; stool studies if diarrhea persists >24 hours. * Monitor liver enzymes (ALT, AST, ALP, TBili) daily. Consider RUQ ultrasound if LFTs continues to raise or bilirubin raises. * Maintain IV Protonix 40 mg BID for stress ulcer and variceal prophylaxis. * Continue IV Reglan 5 mg q8h to improve gastric motility. * Maintain aspiration precautions (HOB >30). Hepatic * Daily LFTs, INR, ammonia, platelets * Avoid hepatotoxic drugs; monitor for encephalopathy. Case discussed in detail with the attending physician, including the clinical presentation, diagnostic workup, and comprehensive management plan. Plan discussed with: Patient, Spouse Dietary Evaluation Review Comments: 1) Initiate Nephro-Haritha @ 1 tb qd 2) If patient remains NPO > 7 days, consider EN/TPN to meet at least 75% of estimated daily needs 3) If GI route is preferred, consider Nepro CarbSteady @ 30 mL/hr goal rate as tolerated. EN regimen will provide 1296 kcals. 58g Pro, and 523 mL free H2O per 24 hrs. Goal rate will meet ~ 92% estimated daily energy needs and ~ 43% estimated daily protein needs. 4) Advance to 60g CCHO renal diet when medically feasible, pending ST approal 5) Refer to outpatient RD/CDCES for weight management 6) Follow-up with cardiology, pulmonology, nephrology, gastroenterology, and hepatology 7) Follow-up with neonatal social worker r/t polysubstance abuse 8) Continue to monitor I&O, labs, and skin integrity Expected Outcomes/Goals: 1) patient to receive nutrition support within 7 days of NPO status 2) labs and GI symptoms to improve 3) diet to advance 4) f/u in 2-3 days NATALY BURNETTE RESIDENT Feb 08, 2025 17:06
--- NOTE | 2025-02-08 17:21 | DVH ---
RIGHT LOWER EXTREMITY VENOUS DUPLEX REASON FOR EXAMINATION: DVT right lower extremity pain and swelling. COMPARISON: US LT UPPER DVT on DOS: 02/07/25, US RT UPPER DVT on DOS: 01/31/25, US BILAT LOWER DVT on DO S: 01/30/25 TECHNIQUE: Using real-time freeze-frame technique with a high-frequency transducer, multiple longitu dinal and transverse sections were obtained. Simultaneous color flow and spectral Doppler imaging wa s performed. FINDINGS: There is wall adherent, nonocclusive, echogenic thrombus in the right common femoral vein. The femoral vein, popliteal vein, and posterior tibial veins are fully compressible and demonstrate expected color and spectral doppler flow. IMPRESSION: Nonocclusive wall adherent echogenic thrombus in the right common femoral vein. Deep venous thrombus Critical Result: DVT Findings discussed with Dr. Lorenz at 02/08/2025 05:16 PM, and acknowledged receipt and understandi ng of the findings. #CRITICAL#
[2025-02-08] MEDS: INSULIN LISPRO (HUMAN) 100 UNITS/ML ML SC SCH (19:20)
[2025-02-08] MEDS: ACCU-CHEK COMFORT CURVE STRIP VI SCH (19:21)
[2025-02-08 20:08] LABS: INR 1.56 (0.9-1.15); Prothrombin Time 15.8 sec (9.3-11.8)
[2025-02-09] VITALS (37 sets, daily range): BP systolic 111–158; BP diastolic 53–85; PULSE 74–90; RESP 10–28; TEMP 99–99.7; O2SAT 95–100
[2025-02-09 04:41] LABS: Hemoglobin 8.3 g/dL (13.5-17.5)
[2025-02-09 04:44] LABS: Hematocrit 24.6 % (41.0-53.0); Mean Corpuscular Hemoglobin 28.3 pg (28.0-32.0); Mean Corpuscular Volume 83.8 fL (80.0-100.0)
[2025-02-09 05:00] LABS: Albumin 3.2 g/dL (3.2-4.8); Anion Gap 12 (5-15); BUN/Creatinine Ratio 37.7 (10.0-20.0); Bilirubin, Total 0.5 mg/dL (0.2-1.0); Potassium 4.1 mmol/L (3.5-5.1); Sodium 142 mmol/L (136-145); Total Protein 5.9 g/dL (5.7-8.2)
[2025-02-09 05:07] LABS: Alanine Aminotransferase 63 U/L (7-40); Alkaline Phosphatase 181 U/L (46-116); Blood Urea Nitrogen 63 mg/dL (9-23); Calcium 8.2 mg/dL (8.7-10.4); Carbon Dioxide 20 mmol/L (20-31); Chloride 110 mmol/L (98-107); Glucose 124 mg/dL (74-106)
[2025-02-09 05:26] LABS: Total Cells Counted 100.0 (100)
--- NOTE | 2025-02-09 13:56 | DVHPN2 ---
Assessment/Plan Assessment/Plan ICU note 60 yo M with gout admitted for back pain. This morning patient found to have elevated HR to 180s rapid response was called, patient was altered and BP was low. initial attempt done to give adenosine with no reduction in HR, patient received sync cardioversion with reversion to sinus tach that was only sustained for 1 minute which reverted back to SVT and started on amio drip. BP improved and patient was somewhat alert, given adenosine 12mg to attempt to re revert, which sustained less than a minute and now patient is in Afib with RVR. Patient was transferred to ICU, sustaining RVR, and more altered, decision made to intubate. Patient also has oral and nasal bleeding. After intubation patient persist to have low BP, started on peripheral pressor and placed TLC and a line. Discussion with renal initially patient was planned for possible dialysis if no improvement with IV diuretics. Patient however exhibit hypovolemic shock on POCUS and with the oral and nasal bleeding, possible alcohol use and cirrhosis, was started on rapid transfusion. Later he grows GNR in the blood. Empiric coverage with IV abx started. seen today, improved. minimal talking. needs pt. pain management[facility] Physical exam intubated, on mechanical ventilation obese off sedation equal pupil, minimal movement not following commands mechanical breath sounds distant heart sound abdomen distended no LE edema R UE finger dry gangrene prominent abdominal and varicose veins on LE Labs EKG imaging reviewed Assessment and plan acute metabolic / toxic encephalopathy acute hypoxic RF req mechanical ventilation septic vs hemorrhagic shock vs cardiogenic? possible acute on chronic diastolic HF possible cirrhosis acquired coagulopathy JOSE ATN on CKD? GNR bacteremia severe thrombocytopenia with active bleeding SVT now new onset afib with RVR possible alcohol withdrawal alcohol use gout flare new R fem DVT on AC c/w mech ventilation plan for trach and peg c/w pressors maintain MAP >65 off sedation id consult appreciated, on levo, still low grade fever persists vasc consult appreciated, plan for digital amputaion c/w amio oral insulin prednisone, morphine, colchicine swallow eval diet NPO dvt ppx therapeutic lovenx gi ppx protonix condition critical prognosis poor Plan discussed with: Patient, Other My Orders Orders - PINA FOX MD Procedure Category Date Status Time Hydromorphone PHA 02/09/25 In Process Injection (Dilaudid 11:00 Date of Service: Feb 09, 2025 Billing Provider: PINA FOX MD Common Visit Codes: [id number] INP/OBS CARE(HIGH) PINA FOX MD Feb 09, 2025 13:56
--- NOTE | 2025-02-09 15:11 | DVHPN2 ---
Progress Note Date Seen: Feb 09, 2025 Resident Creating Document: NATALY BURNETTE RESIDENT Has the PT tested + for MRSA If YES, has PT been informed?: No Medical Necessity Reason Pt with a Central, PICC or Fol: Yes The following are medically ne: Central Line (Left non tunneled IJ and tunneled right subclavian), Young Catheter Reason for young catheter: Strict I&O Subjective Review of Systems This is a 60-year-old male with suspected alcoholic hepatitis, chronic liver disease, and recent critical illness with GI involvement. The patient is currently tolerating oral intake after transition from tube feeds and is off mechanical ventilation. From a GI perspective today: * Hemoglobin stable at 8.3 g/dL (down from 9.3 yesterday), no overt GI bleeding observed. * WBC elevated to 18.2 10/L, likely due to steroid therapy. * Coagulation profile: PT 15.8 sec, INR 1.56 mildly elevated, consistent with chronic liver disease and risk of bleeding. * Liver function tests: AST 69, ALT 63, ALP 181, total bilirubin 0.5 stable and without significant cholestasis. * Nutrition: TPN is being tapered; patient continues oral intake. * Steroids: Being tapered per primary/ID plan * Venous duplex study: Positive for non-occlusive wall-adherent echogenic thrombus in the right common femoral vein (DVT). * Patient is considered at high bleeding risk due to history of prior GI bleed; an IVC filter is under consideration as anticoagulation is relatively contraindicated. Plan is for outpatient GI follow-up post-discharge for further evaluation of alcoholic hepatitis, as well as EGD and colonoscopy for variceal screening and colorectal cancer evaluation. Objective vital signs Vital Sign Date Time Temp Pulse Resp B/P (MAP) Pulse Ox O2 Delivery O2 Flow Rate FiO2 02/09/25 14:00 99.5 82 24 125/69 (87) 100 211.1 02/09/25 13:33 Room Air* 0 21 Total Intake and Output 02/08/25 02/08/25 02/09/25 15:00 23:00 07:00 Intake Total 550.2 ml 850 ml 700 ml Output Total 850 ml 1000 ml Balance 550.2 ml 0 ml -300 ml medications Current Medications Medications Dose Ordered Sig/Natividad Route Start Time Stop Time Status Last Admin Dose Admin Thiamine HCl 100 mg DAILY IV 01/20/25 10:00 02/09/25 08:24 100 MG Folic Acid 1 mg/ Dextrose 50.2 ml @ 200.8 mls/ hr DAILY INJ 01/20/25 10:00 02/09/25 08:24 200.8 MLS/HR Metoclopramide HCl 5 mg Q8HR IV 01/23/25 16:30 02/09/25 12:53 5 MG Enteral Nutritional Formula 1,000 ml 50ML/HR GT 01/26/25 17:00 02/03/25 17:26 1,000 ML Sodium Chloride 10 ml QSHIFT@10,22 IV 01/28/25 22:00 02/09/25 08:25 10 ML Lactulose 30 ml DAILY PRN PO 01/30/25 07:00 01/31/25 21:39 30 ML Pantoprazole Sodium 40 mg DAILY IV 01/30/25 10:00 02/09/25 08:24 40 MG Spironolactone 25 mg DAILY PO 01/31/25 10:00 02/09/25 08:25 25 MG Acetaminophen 650 mg Q6HP PRN PO 01/31/25 07:15 02/08/25 00:57 650 MG Levofloxacin/ Dextrose 100 ml @ 100 mls/hr DAILY@1800 IV 01/31/25 18:00 02/08/25 18:08 100 MLS/HR Enoxaparin Sodium 90 mg Q12HR SC 02/03/25 22:00 02/10/25 10:01 02/09/25 08:26 90 MG Colchicine 0.6 mg DAILY PO 02/06/25 10:00 02/09/25 08:25 0.6 MG Ipratropium [place] 0.5 mg Q4HWA NEB 02/05/25 18:00 02/09/25 13:24 0.5 MG Albuterol 2.5 mg Q4HWA NEB 02/05/25 18:00 02/09/25 13:24 2.5 MG Methylprednisolone Sodium Succinate 40 mg DAILY IV 02/07/25 10:00 02/09/25 08:24 40 MG Insulin Glargine 13 units QAM SC 02/07/25 07:00 02/09/25 05:54 13 UNITS Dextrose 50 ml UD IV 02/06/25 21:00 Carvedilol 6.25 mg Q12HR PO 02/07/25 08:00 02/09/25 08:53 6.25 MG Empaglifozin 10 mg DAILY PO 02/07/25 10:00 02/09/25 08:25 10 MG Lisinopril 10 mg DAILY PO 02/08/25 10:00 02/09/25 08:25 10 MG Diagnostic Test (Pha) 1 strip Q6HR 02/08/25 18:00 02/09/25 10:48 1 STRIP Insulin Human Lispro Q6HR SC 02/08/25 18:00 02/09/25 11:45 3 UNITS Hydromorphone HCl 0.25 mg Q4HPRN PRN IV 02/09/25 11:00 Examination * General: Awake, stable, on room air. * Abdomen: Soft, non-distended, non-tender, active bowel sounds. * Stool: No visible blood. * Skin: No jaundice, no ascites appreciated. laboratory and microbiology Laboratory Tests 02/09/25 03:50 Test 02/09/25 03:50 Range/Units Serum Glucose 124 H 74-106 mg/dL Microbiology Date/Time Source Procedure Growth Status 01/30/25 11:27 Urine - Young Port Urine Culture - Final Complete 01/29/25 11:35 Sputum Gram Stain - Final Complete 01/29/25 11:35 Sputum Respiratory Culture - Final Complete 01/27/25 14:15 Blood Blood Culture - Final NO GROWTH AFTER 5 DAYS OF INCUBATION. Complete 01/23/25 20:14 Lung - Final Resulted 01/23/25 20:14 Lung - Final Resulted 01/23/25 20:14 Lung - Preliminary Resulted 01/23/25 20:14 Lung - Preliminary Resulted 01/23/25 20:14 Lung - Final See Separate Report... Resulted Problem List/Assessment/Plan Problem List/Assessment/Plan Assessment 1. Upper GI bleeding resolved/stable * No new bleeding; NG aspirate clear; H/H stable. 2. Alcoholic cirrhosis with portal hypertension, chronic liver disease * MELD remains high; LFTs elevated; continue monitoring. 2.Sepsis associated hepatic dysfunction 3. Critical illness with gastroparesis improving with prokinetic therapy. 4. Constipation persistent despite regimen, possibly opioid/sedation related. 5. Sepsis with WBC spike on antibiotics; respiratory culture positive for Lelo (likely colonization vs. infection). Plan GI System Gastrointestinal / Nutrition Gastrointestinal / Hepatic: * Continue to monitor hemoglobin and signs of bleeding. * Continue oral diet as tolerated; high-protein, low-sodium nutrition. * Taper steroids per primary team f * Monitor LFTs and coagulation profile daily while inpatient. * Outpatient EGD and colonoscopy to assess for portal hypertensive changes, varices, and CRC screening. Nutrition: * Continue TPN taper with goal of full oral nutrition prior to discharge. * Dietitian to follow for caloric/protein goals. Thrombosis / Coagulation: * Consider IVC filter placement for DVT given high bleeding risk. * Avoid anticoagulation until bleeding risk profile changes. Prophylaxis: * Continue PPI for stress ulcer prophylaxis. * Maintain aspiration precautions. Continue daily bowel monitoring, maintain soft stool consistency. The patient EGD and colonoscopy and GI consult to be arranged after discharge for variceal screening, mucosal evaluation and colorectal cancer screening once the patient is stable for discharge Case discussed in detail with the attending physician, including the clinical presentation, diagnostic workup, and comprehensive management plan. Plan discussed with: Patient Dietary Evaluation Review Comments: 1) Initiate Nephro-Haritha @ 1 tb qd 2) If patient remains NPO > 7 days, consider EN/TPN to meet at least 75% of estimated daily needs 3) If GI route is preferred, consider Nepro CarbSteady @ 30 mL/hr goal rate as tolerated. EN regimen will provide 1296 kcals. 58g Pro, and 523 mL free H2O per 24 hrs. Goal rate will meet ~ 92% estimated daily energy needs and ~ 43% estimated daily protein needs. 4) Advance to 60g CCHO renal diet when medically feasible, pending ST approal 5) Refer to outpatient RD/CDCES for weight management 6) Follow-up with cardiology, pulmonology, nephrology, gastroenterology, and hepatology 7) Follow-up with social sciences research scientist r/t polysubstance abuse 8) Continue to monitor I&O, labs, and skin integrity Expected Outcomes/Goals: 1) patient to receive nutrition support within 7 days of NPO status 2) labs and GI symptoms to improve 3) diet to advance 4) f/u in 2-3 days NATALY BURNETTE RESIDENT Feb 09, 2025 15:11
--- NOTE | 2025-02-09 15:15 | DVHPN2 ---
Progress Note - Dictate Date Seen: Feb 09, 2025 Has the PT tested + for MRSA If YES, has PT been informed?: No Medical Necessity Reason Pt with a Central, PICC or Fol: Yes The following are medically ne: Central Line (Left non tunneled IJ and tunneled right subclavian), Young Catheter Reason for young catheter: Strict I&O vital signs Vital Sign Date Time Temp Pulse Resp B/P (MAP) Pulse Ox O2 Delivery O2 Flow Rate FiO2 02/09/25 15:00 99.5 80 27 150/76 (100) 100 211.1 02/09/25 13:33 Room Air* 0 21 Total Intake and Output 02/08/25 02/08/25 02/09/25 15:00 23:00 07:00 Intake Total 550.2 ml 850 ml 700 ml Output Total 850 ml 1000 ml Balance 550.2 ml 0 ml -300 ml medications Current Medications Medications Dose Ordered Sig/Natividad Route Start Time Stop Time Status Last Admin Dose Admin Thiamine HCl 100 mg DAILY IV 01/20/25 10:00 02/09/25 08:24 100 MG Folic Acid 1 mg/ Dextrose 50.2 ml @ 200.8 mls/ hr DAILY INJ 01/20/25 10:00 02/09/25 08:24 200.8 MLS/HR Metoclopramide HCl 5 mg Q8HR IV 01/23/25 16:30 02/09/25 12:53 5 MG Enteral Nutritional Formula 1,000 ml 50ML/HR GT 01/26/25 17:00 02/03/25 17:26 1,000 ML Sodium Chloride 10 ml QSHIFT@10,22 IV 01/28/25 22:00 02/09/25 08:25 10 ML Lactulose 30 ml DAILY PRN PO 01/30/25 07:00 01/31/25 21:39 30 ML Pantoprazole Sodium 40 mg DAILY IV 01/30/25 10:00 02/09/25 08:24 40 MG Spironolactone 25 mg DAILY PO 01/31/25 10:00 02/09/25 08:25 25 MG Acetaminophen 650 mg Q6HP PRN PO 01/31/25 07:15 02/08/25 00:57 650 MG Levofloxacin/ Dextrose 100 ml @ 100 mls/hr DAILY@1800 IV 01/31/25 18:00 02/08/25 18:08 100 MLS/HR Enoxaparin Sodium 90 mg Q12HR SC 02/03/25 22:00 02/10/25 10:01 02/09/25 08:26 90 MG Colchicine 0.6 mg DAILY PO 02/06/25 10:00 02/09/25 08:25 0.6 MG Ipratropium [place] 0.5 mg Q4HWA [facility] 02/05/25 18:00 02/09/25 13:24 0.5 MG Albuterol 2.5 mg Q4HWA [facility] 02/05/25 18:00 02/09/25 13:24 2.5 MG Methylprednisolone Sodium Succinate 40 mg DAILY IV 02/07/25 10:00 02/09/25 08:24 40 MG Insulin Glargine 13 units QAM SC 02/07/25 07:00 02/09/25 05:54 13 UNITS Dextrose 50 ml UD IV 02/06/25 21:00 Carvedilol 6.25 mg Q12HR PO 02/07/25 08:00 02/09/25 08:53 6.25 MG Empaglifozin 10 mg DAILY PO 02/07/25 10:00 02/09/25 08:25 10 MG Lisinopril 10 mg DAILY PO 02/08/25 10:00 02/09/25 08:25 10 MG Diagnostic Test (Pha) 1 strip Q6HR 02/08/25 18:00 02/09/25 10:48 1 STRIP Insulin Human Lispro Q6HR SC 02/08/25 18:00 02/09/25 11:45 3 UNITS Hydromorphone HCl 0.25 mg Q4HPRN PRN IV 02/09/25 11:00 laboratory and microbiology Laboratory Tests 02/09/25 03:50 Test 02/09/25 03:50 Range/Units Serum Glucose 124 H 74-106 mg/dL Assessment/Plan Impression Acute hypoxic respiratory failure Hx of alcohol abuse Sepsis ESRD, on hemodialysis Obesity Events: S/p extubation, transitioned to face-mask right hand noted dry gangrene of fingers f/up with vascular sx, awaiting procedure Labs and imaging reviewed ABG reviewed Management Supplemental oxygen Titrate to maintain sats 90% or above Incentive spirometry Aspiration precautions NPO swallow eval Continue antibiotics. Monitor hemoglobin HD per Nephrology Monitor renal function Monitor electrolytes. Supplement as necessary. Monitor ins and outs. Maintain euvolemia PT Crit care time 35 min Dietary Evaluation Review Comments: 1) Initiate Nephro-Haritha @ 1 tb qd 2) If patient remains NPO > 7 days, consider EN/TPN to meet at least 75% of estimated daily needs 3) If GI route is preferred, consider Nepro CarbSteady @ 30 mL/hr goal rate as tolerated. EN regimen will provide 1296 kcals. 58g Pro, and 523 mL free H2O per 24 hrs. Goal rate will meet ~ 92% estimated daily energy needs and ~ 43% estimated daily protein needs. 4) Advance to 60g CCHO renal diet when medically feasible, pending ST approal 5) Refer to outpatient RD/CDCES for weight management 6) Follow-up with cardiology, pulmonology, nephrology, gastroenterology, and hepatology 7) Follow-up with manager social r/t polysubstance abuse 8) Continue to monitor I&O, labs, and skin integrity Expected Outcomes/Goals: 1) patient to receive nutrition support within 7 days of NPO status 2) labs and GI symptoms to improve 3) diet to advance 4) f/u in 2-3 days JONNATHAN FELICIANO MD Feb 09, 2025 15:15
[2025-02-10] VITALS (28 sets, daily range): BP systolic 100–146; BP diastolic 53–82; PULSE 67–83; RESP 15–25; TEMP 97.8–99.7; O2SAT 89–100
[2025-02-10 04:05] LABS: Mean Corpuscular Volume 84.0 fL (80.0-100.0)
[2025-02-10 04:07] LABS: Hematocrit 23.0 % (41.0-53.0); Hemoglobin 7.9 g/dL (13.5-17.5); Mean Corpuscular Hemoglobin 28.8 pg (28.0-32.0)
[2025-02-10 04:19] LABS: Potassium 3.9 mmol/L (3.5-5.1); Sodium 139 mmol/L (136-145)
[2025-02-10 04:20] LABS: Anion Gap 12 (5-15)
[2025-02-10 04:23] LABS: Calcium 7.4 mg/dL (8.7-10.4); Carbon Dioxide 18 mmol/L (20-31); Chloride 109 mmol/L (98-107)
[2025-02-10 04:25] LABS: BUN/Creatinine Ratio 35.8 (10.0-20.0)
[2025-02-10 04:34] LABS: Blood Urea Nitrogen 54 mg/dL (9-23); Glucose 128 mg/dL (74-106)
[2025-02-10 04:54] LABS: Total Cells Counted 100.0 (100)
[2025-02-10] MEDS: SODIUM CHLORIDE 0.9% 1,000 ML IV SCH (07:00)
[2025-02-10] MEDS: ALLOPURINOL 100 MG TAB PO ONE (12:23)
--- NOTE | 2025-02-10 18:25 | DVHPNRES ---
Progress Note Date Seen: Feb 10, 2025 Resident Creating Document: SONA HEARD VANESSA Has the PT tested + for MRSA If YES, has PT been informed?: No Medical Necessity Reason Pt with a Central, PICC or Fol: Yes The following are medically ne: Central Line (Left non tunneled IJ and tunneled right subclavian), Young Catheter Reason for young catheter: Strict I&O Subjective Review of Systems Patient seen and examined at bedside. Patient is feeling better. Patient is downgraded to [facility]. Objective vital signs Vital Sign Date Time Temp Pulse Resp B/P (MAP) Pulse Ox O2 Delivery O2 Flow Rate FiO2 02/10/25 17:04 97.8 78 18 123/82 (96) 98 97.8 02/10/25 13:00 Room Air 02/10/25 13:00 0 21 21 Total Intake and Output 02/09/25 02/09/25 02/10/25 15:00 23:00 07:00 Intake Total 1100 ml 400 ml Output Total 1100 ml 1000 ml Balance 0 ml -600 ml medications Current Medications Medications Dose Ordered Sig/Natividad Route Start Time Stop Time Status Last Admin Dose Admin Thiamine HCl 100 mg DAILY IV 01/20/25 10:00 02/10/25 12:15 100 MG Folic Acid 1 mg/ Dextrose 50.2 ml @ 200.8 mls/ hr DAILY INJ 01/20/25 10:00 02/09/25 08:24 200.8 MLS/HR Metoclopramide HCl 5 mg Q8HR IV 01/23/25 16:30 02/10/25 15:02 5 MG Enteral Nutritional Formula 1,000 ml 50ML/HR GT 01/26/25 17:00 02/03/25 17:26 1,000 ML Sodium Chloride 10 ml QSHIFT@10,22 IV 01/28/25 22:00 02/10/25 12:15 10 ML Lactulose 30 ml DAILY PRN PO 01/30/25 07:00 01/31/25 21:39 30 ML Pantoprazole Sodium 40 mg DAILY IV 01/30/25 10:00 02/10/25 12:15 40 MG Spironolactone 25 mg DAILY PO 01/31/25 10:00 02/10/25 12:16 25 MG Acetaminophen 650 mg Q6HP PRN PO 01/31/25 07:15 02/10/25 05:44 650 MG Levofloxacin/ Dextrose 100 ml @ 100 mls/hr DAILY@1800 IV 01/31/25 18:00 02/10/25 18:12 100 MLS/HR Colchicine 0.6 mg DAILY PO 02/06/25 10:00 02/10/25 12:16 0.6 MG Ipratropium [place] 0.5 mg Q4HWA [facility] 02/05/25 18:00 02/10/25 13:00 0.5 MG Albuterol 2.5 mg Q4HWA [facility] 02/05/25 18:00 02/10/25 13:00 2.5 MG Methylprednisolone Sodium Succinate 40 mg DAILY IV 02/07/25 10:00 02/10/25 12:15 40 MG Insulin Glargine 13 units QAM SC 02/07/25 07:00 02/10/25 05:43 13 UNITS Dextrose 50 ml UD IV 02/06/25 21:00 Carvedilol 6.25 mg Q12HR PO 02/07/25 08:00 02/10/25 12:16 6.25 MG Empaglifozin 10 mg DAILY PO 02/07/25 10:00 02/10/25 12:16 10 MG Lisinopril 10 mg DAILY PO 02/08/25 10:00 02/10/25 12:17 10 MG Diagnostic Test (Pha) 1 strip Q6HR 02/08/25 18:00 02/10/25 12:17 1 STRIP Insulin Human Lispro Q6HR SC 02/08/25 18:00 02/09/25 16:58 2 UNITS Hydromorphone HCl 0.25 mg Q4HPRN PRN IV 02/09/25 11:00 Sodium Chloride 1,000 ml @ 200 mls/hr Q5H IV 02/10/25 07:00 02/10/25 18:12 200 MLS/HR Allopurinol 100 mg DAILY PO 02/11/25 10:00 Examination General Appearance: Alert, following command, can speak few words HEENT: Atraumatic, PERRLA, EOMI, Mucous membrane moist/pink Respiratory: Clear to auscultation, Normal air movement Cardiovascular: Regular rate, Normal S1, Normal S2, No murmurs, no chest wall tenderness Abdominal: Normal bowel sounds, Soft, No tenderness, No hepatospenomegaly, No masses Extremities: Bilateral ankle and left wrist swollen, warm and tender. Right hand distal phalanges or black (necrotic) Skin: No rashes, No breakdown, No significant lesion Neuro: Normal gait, Normal speech, Strength at 5/5 X4 ext, Normal tone, Sensation intact, Cranial nerves 3-12 NL, Reflexes 2+ Psych/Mental Status: Mental status NL, Mood NL laboratory and microbiology Laboratory Tests 02/10/25 03:11 Test 02/10/25 03:11 Range/Units Serum Glucose 128 H 74-106 mg/dL Microbiology Date/Time Source Procedure Growth Status 01/30/25 11:27 Urine - Young Port Urine Culture - Final Complete 01/29/25 11:35 Sputum Gram Stain - Final Complete 01/29/25 11:35 Sputum Respiratory Culture - Final Complete 01/27/25 14:15 Blood Blood Culture - Final NO GROWTH AFTER 5 DAYS OF INCUBATION. Complete 01/23/25 20:14 Lung - Final Resulted 01/23/25 20:14 Lung - Final Resulted 01/23/25 20:14 Lung - Preliminary Resulted 01/23/25 20:14 Lung - Preliminary Resulted 01/23/25 20:14 Lung - Final See Separate Report... Resulted Labs and/or images reviewed: Labs reviewed by me, Image(s) reviewed by me Problem List/Assessment/Plan Problem List/Assessment/Plan This is a 60-year-old male with past medical history of alcohol use disorder, current heavy smoker, gout, dyslipidemia, came to the hospital due to low back pain. On 2nd day of admission, the patient is stabilized, developed AFib and SVT, underwent cardioversion and adenosine was given subsequently, due to respiratory distress and inability to maintain respiratory tract, the patient was sedated, intubated and put on mechanical ventilation. NEURO: Acute metabolic/toxic encephalopathy likely due to sepsis/alcohol use disorder * Sedated, on MV with RASS score -4 * Head CT scan showed no significant intracranial abnormalities CARDIOVASCULAR: ? Cardiogenic shock, likely due to AFib with RVR/SVT Atrial fibrillation with RVR/SVT Acquired coagulopathy ? Acute on chronic Heart failure with reduced ejection fraction NSTEMI, likely type 2 due to above Sinus bradycardia Ruled out Endocarditis * Patient was 2 times reverted to NSR with cardioversion, subsequently put on amiodarone drip for 2 days, discontinued due to regaining sinus rhythm and bradycardia * EKG upon admission showed sinus rhythm with no significant ST or T-wave changes * Subsequent EKGs showed AFib with RVR and SVT, and reverted to normal sinus rhythm by giving amiodarone drip for 2 days * Echo shows, LVEF 45% severe pulmonary hypertension (RVSP 64) * BNP is raised at 450s * CLAUDE on 01/27/2025, normal study PULMONARY: Acute hypoxic respiratory failure, likely due to pneumonia Pneumonia, likely due to Gram-positive/Gram-negative bacteria/viral ? Pulmonary hypertension Possible obstructive sleep apnea Atelectasis * CT scan shows, bilateral small pleural effusion * Chest x-ray shows, closed left costophrenic angle * Bronchoscopy performed on 01/16/2024, had copious amount of mucus on bilateral main bronchus, sample sent for culture * Pulmonology is on the board * Breathing treatment and chest percussion q.4hr GASTROINTESTINAL: ? Upper GI bleeding, likely due to liver cirrhosis/portal hypertension Alcohol use disorder Hepatomegaly and hepatic steatosis, likely due to alcohol use disorder Splenomegaly, likely due to above Bilateral indirect inguinal hernia, fatigue content extending to the scrotum Diverticulosis * GI is on the board, recommended medical management at the moment * Thiamine and folic acid GENITOURINARY: JOSE on possible CKD, likely VMN (baseline record not available) * Nephrology on the board, performed 4 session of HD, last session on 01/26/2025, creatinine normalized * Consulted Radiology for tunneled catheter removal, removed catheter ENDOCRINE: Newly diagnosed Diabetes, with hyperglycemia Dyslipidemia Thyroid nodule Obesity * HBA1c is 6.5 * Lispro subcutaneous q.6 hours METABOLIC: Gout Hypokalemia Hypocalcemia Hypertriglyceridemia, likely due to propofol side effects Mild hypernatremia HEME: Severe thrombocytopenia, likely due to liver cirrhosis, normalized Mild anemia, normocytic normochromic * Status post transfusion of 1 unit RBC, 1 units FFP, and 1 unit platelet INFECTIOUS DISEASE: ? Septic shock likely due to pneumonia/bacteremia Recurrent spikes of fever Possible drug fever * Blood culture shows Gram-negative right, Salmonella sensitive to ampicillin * Sputum culture shows E coli, sensitive to ampicillin * Vancomycin and cefepime was given for 5 days, DC on 01/15/2025 * Ampicillin IV started on 01/15/2025, due to episodes of fever, ampicillin discontinued on 01/24/2025 * Over 01/16/24, the patient had multiple episodes of fever, patient is started back on vancomycin and meropenem on 01/24/2025, stopped vancomycin on 01/30/25 (given for 6 days) for possible drug fever * Acetaminophen p.r.n. for fever * Consulted infectious disease for fever of unknown origin, recommended to discontinue other antibiotic and give levofloxacin for 2 weeks DERMATOLOGY: Right hand acute PAD/acute limb ischemia possibly due to arterial thrombosis, leading to possible right hand fingertip necrosis Right hand distal phalanges riding, likely due to radial artery thrombosis * Doppler ultrasound shows no significant arterial disease * Vascular surgeon consulted, performed right radial artery exploration with subsequent performed thrombectomy of the proximal radial artery, due to necrosis of distal phalanges of right hand, planned for amputation MUSCULOSKELETAL: Chronic back pain, due to severe lumbar disc disease Gout flare-up Uric acid is bed at 12.8 * Ketorolac 30 mg once * Methylprednisolone 40 mg daily * Colchicine and allopurinol DIET: Puree diet DVT prophylax: Lovenox therapeutic dose started on 01/30/25 GI prophylaxis: Protonix 40 mg daily Bowel regimen: Lactulose 30 mg daily PRN Code status: Code status discussed with the family (son), full code LINES/DRAINS/ACCESS: * ETT: Intubated on 01/19/2025 and extubated on 02/05/2025 * Right subclavian tunneled catheter, placed on 01/26/2020, removed on 02/08/2025 * Drips: All drips discontinued * Young catheter: Exchanged on 01/30/2025 DISPOSITION: Downgraded to med/surge with sitter Critical care time spent more than 30 minutes. Case discussed with Dr. Chadwick Plan discussed with: Patient, Spouse, Other (RN) My Orders My Orders Orders - SONA HEARD RESDIENT Procedure Category Date Status Time Sodium Chloride 0.9% PHA 02/10/25 In Process 07:00 Stool Occult Blood LAB 02/10/25 Logged 11:08 Blood Culture TERE 02/10/25 In Process 11:08 Urine Bacterial TERE 02/10/25 Logged Culture 11:08 Respiratory Culture TERE 02/10/25 Logged W/ Gs 11:08 Venous Blood Gas RT 02/10/25 Logged 11:08 Urinalysis LAB 8/15/25 Logged 11:08 Communication Order ORDERS 02/10/25 Transmitted 11:08 Allopurinol Tablet PHA 02/11/25 In Process (Zyloprim Tablet) 10:00 Transfer Orders XFER 02/10/25 Transmitted 11:12 Dietary Evaluation Review Comments: 1) Initiate Nephro-Haritha @ 1 tb qd 2) If patient remains NPO > 7 days, consider EN/TPN to meet at least 75% of estimated daily needs 3) If GI route is preferred, consider Nepro CarbSteady @ 30 mL/hr goal rate as tolerated. EN regimen will provide 1296 kcals. 58g Pro, and 523 mL free H2O per 24 hrs. Goal rate will meet ~ 92% estimated daily energy needs and ~ 43% estimated daily protein needs. 4) Advance to 60g CCHO renal diet when medically feasible, pending ST approal 5) Refer to outpatient RD/CDCES for weight management 6) Follow-up with cardiology, pulmonology, nephrology, gastroenterology, and hepatology 7) Follow-up with social sciences research scientist r/t polysubstance abuse 8) Continue to monitor I&O, labs, and skin integrity Expected Outcomes/Goals: 1) patient to receive nutrition support within 7 days of NPO status 2) labs and GI symptoms to improve 3) diet to advance 4) f/u in 2-3 days Date of Service: Feb 10, 2025 Billing Provider: PINA CHADWICK MD Common Visit Codes: [id number] INP/OBS CARE(HIGH) SONA HEARD RESDIENT Feb 10, 2025 18:25 PINA CHADWICK MD Feb 10, 2025 23:41
--- NOTE | 2025-02-10 19:22 | DVHPN2 ---
Progress Note Date Seen: Feb 10, 2025 Resident Creating Document: NATALY BURNETTE RESIDENT Has the PT tested + for MRSA If YES, has PT been informed?: No Medical Necessity Reason Pt with a Central, PICC or Fol: Yes The following are medically ne: Central Line (Left non tunneled IJ and tunneled right subclavian), Young Catheter Reason for young catheter: Strict I&O Subjective Review of Systems TODAY'S PROGRESS- The patient was downgraded from ICU to telemetry today. Reports 1 bowel movement. Continues on a pureed diet and tolerating p.o. intake without nausea vomiting or abdominal pain. No hematemesis melena or hematochezia reported. Hemoglobin stabilized at 7.9, WBC count remains elevated at 20.2 yesterday 18.2, likely influenced by ongoing steroid use and possible underlying inflammation/infection. Liver function tests previously elevated, total bilirubin has normalized but AST ALT remain mildly high. Renal function reveals creatinine of 1.67, GFR 46 low, BUN 63, Pureed diet with good tolerance transitioned off TPN. Stable, downgraded from ICU to telemetry Objective vital signs Vital Sign Date Time Temp Pulse Resp B/P (MAP) Pulse Ox O2 Delivery O2 Flow Rate FiO2 02/10/25 17:04 97.8 78 18 123/82 (96) 98 97.8 02/10/25 13:00 Room Air 02/10/25 13:00 0 21 21 Total Intake and Output 02/09/25 02/09/25 02/10/25 15:00 23:00 07:00 Intake Total 1100 ml 400 ml Output Total 1100 ml 1000 ml Balance 0 ml -600 ml medications Current Medications Medications Dose Ordered Sig/Natividad Route Start Time Stop Time Status Last Admin Dose Admin Thiamine HCl 100 mg DAILY IV 01/20/25 10:00 02/10/25 12:15 100 MG Folic Acid 1 mg/ Dextrose 50.2 ml @ 200.8 mls/ hr DAILY INJ 01/20/25 10:00 02/09/25 08:24 200.8 MLS/HR Metoclopramide HCl 5 mg Q8HR IV 01/23/25 16:30 02/10/25 15:02 5 MG Enteral Nutritional Formula 1,000 ml 50ML/HR GT 01/26/25 17:00 02/03/25 17:26 1,000 ML Sodium Chloride 10 ml QSHIFT@10,22 IV 01/28/25 22:00 02/10/25 12:15 10 ML Lactulose 30 ml DAILY PRN PO 01/30/25 07:00 01/31/25 21:39 30 ML Pantoprazole Sodium 40 mg DAILY IV 01/30/25 10:00 02/10/25 12:15 40 MG Spironolactone 25 mg DAILY PO 01/31/25 10:00 02/10/25 12:16 25 MG Acetaminophen 650 mg Q6HP PRN PO 01/31/25 07:15 02/10/25 05:44 650 MG Levofloxacin/ Dextrose 100 ml @ 100 mls/hr DAILY@1800 IV 01/31/25 18:00 02/10/25 18:12 100 MLS/HR Colchicine 0.6 mg DAILY PO 02/06/25 10:00 02/10/25 12:16 0.6 MG Ipratropium [place] 0.5 mg Q4HWA [facility] 02/05/25 18:00 02/10/25 19:11 0.5 MG Albuterol 2.5 mg Q4HWA [facility] 02/05/25 18:00 02/10/25 19:11 2.5 MG Methylprednisolone Sodium Succinate 40 mg DAILY IV 02/07/25 10:00 02/10/25 12:15 40 MG Insulin Glargine 13 units QAM SC 02/07/25 07:00 02/10/25 05:43 13 UNITS Dextrose 50 ml UD IV 02/06/25 21:00 Carvedilol 6.25 mg Q12HR PO 02/07/25 08:00 02/10/25 12:16 6.25 MG Empaglifozin 10 mg DAILY PO 02/07/25 10:00 02/10/25 12:16 10 MG Lisinopril 10 mg DAILY PO 02/08/25 10:00 02/10/25 12:17 10 MG Diagnostic Test (Pha) 1 strip Q6HR 02/08/25 18:00 02/10/25 18:29 1 STRIP Insulin Human Lispro Q6HR SC 02/08/25 18:00 02/10/25 18:30 3 UNITS Hydromorphone HCl 0.25 mg Q4HPRN PRN IV 02/09/25 11:00 Sodium Chloride 1,000 ml @ 200 mls/hr Q5H IV 02/10/25 07:00 02/10/25 18:12 200 MLS/HR Allopurinol 100 mg DAILY PO 02/11/25 10:00 Examination General: Awake, stable, on room air. * Abdomen: Soft, non-distended, non-tender, active bowel sounds. * Stool: No visible blood. * Skin: No jaundice, no ascites appreciated. laboratory and microbiology Laboratory Tests 02/10/25 03:11 Test 02/10/25 03:11 Range/Units Serum Glucose 128 H 74-106 mg/dL Microbiology Date/Time Source Procedure Growth Status 01/30/25 11:27 Urine - Young Port Urine Culture - Final Complete 01/29/25 11:35 Sputum Gram Stain - Final Complete 01/29/25 11:35 Sputum Respiratory Culture - Final Complete 01/27/25 14:15 Blood Blood Culture - Final NO GROWTH AFTER 5 DAYS OF INCUBATION. Complete 01/23/25 20:14 Lung - Final Resulted 01/23/25 20:14 Lung - Final Resulted 01/23/25 20:14 Lung - Preliminary Resulted 01/23/25 20:14 Lung - Preliminary Resulted 01/23/25 20:14 Lung - Final See Separate Report... Resulted Problem List/Assessment/Plan Problem List/Assessment/Plan Assessment 1. Upper GI bleeding resolved/stable * No new bleeding; NG aspirate clear; H/H stable. 2. Alcoholic cirrhosis with portal hypertension, chronic liver disease * MELD remains high; LFTs elevated; continue monitoring. 2.Sepsis associated hepatic dysfunction 3. Critical illness with gastroparesis improving with prokinetic therapy. 4. Constipation persistent despite regimen, possibly opioid/sedation related. 5. Sepsis with WBC spike on antibiotics; respiratory culture positive for Lelo (likely colonization vs. infection). Plan GI System Gastrointestinal / Nutrition Gastrointestinal / Hepatic: * Continue to monitor hemoglobin and signs of bleeding. * Continue oral diet as tolerated; high-protein, low-sodium nutrition. * Taper steroids per primary team f * Monitor LFTs and coagulation profile daily while inpatient. * Outpatient EGD and colonoscopy to assess for portal hypertensive changes, varices, and CRC screening. Nutrition: * Continue TPN taper with goal of full oral nutrition prior to discharge. * Dietitian to follow for caloric/protein goals. Thrombosis / Coagulation: * Consider IVC filter placement for DVT given high bleeding risk. * Avoid anticoagulation until bleeding risk profile changes. Prophylaxis: * Continue PPI for stress ulcer prophylaxis. * Maintain aspiration precautions. Continue daily bowel monitoring, maintain soft stool consistency. The patient will require EGD and colonoscopy on outpatient basis and GI consult to be arranged after discharge for variceal screening, mucosal evaluation and colorectal cancer screening once the patient is stable for discharge Case discussed in detail with the attending physician, including the clinical presentation, diagnostic workup, and comprehensive management plan. Plan discussed with: Patient, Spouse, Other (sister, RN) Dietary Evaluation Review Comments: 1) Initiate Nephro-Haritha @ 1 tb qd 2) If patient remains NPO > 7 days, consider EN/TPN to meet at least 75% of estimated daily needs 3) If GI route is preferred, consider Nepro CarbSteady @ 30 mL/hr goal rate as tolerated. EN regimen will provide 1296 kcals. 58g Pro, and 523 mL free H2O per 24 hrs. Goal rate will meet ~ 92% estimated daily energy needs and ~ 43% estimated daily protein needs. 4) Advance to 60g CCHO renal diet when medically feasible, pending ST approal 5) Refer to outpatient RD/CDCES for weight management 6) Follow-up with cardiology, pulmonology, nephrology, gastroenterology, and hepatology 7) Follow-up with medical social worker r/t polysubstance abuse 8) Continue to monitor I&O, labs, and skin integrity Expected Outcomes/Goals: 1) patient to receive nutrition support within 7 days of NPO status 2) labs and GI symptoms to improve 3) diet to advance 4) f/u in 2-3 days NATALY BURNETTE RESIDENT Feb 10, 2025 19:22
[2025-02-10 19:55] LABS: Urine Protein, UAD Negative (Negative)
[2025-02-11] VITALS (16 sets, daily range): BP systolic 98–130; BP diastolic 59–83; PULSE 75–100; RESP 17–20; TEMP 97.1–98.9; O2SAT 93–100
[2025-02-11 08:08] LABS: Anion Gap 13 (5-15); BUN/Creatinine Ratio 31.4 (10.0-20.0); Potassium 3.8 mmol/L (3.5-5.1); Sodium 139 mmol/L (136-145); Total Protein 6.1 g/dL (5.7-8.2)
[2025-02-11 08:09] LABS: Albumin 3.6 g/dL (3.2-4.8); Bilirubin, Total 0.7 mg/dL (0.2-1.0)
[2025-02-11 08:10] LABS: Alanine Aminotransferase 58 U/L (7-40); Alkaline Phosphatase 181 U/L (46-116); Blood Urea Nitrogen 44 mg/dL (9-23); Calcium 8.2 mg/dL (8.7-10.4); Carbon Dioxide 17 mmol/L (20-31); Chloride 109 mmol/L (98-107); Glucose 131 mg/dL (74-106)
[2025-02-11 08:33] LABS: Hematocrit 24.0 % (41.0-53.0); Hemoglobin 8.3 g/dL (13.5-17.5); Mean Corpuscular Hemoglobin 28.9 pg (28.0-32.0); Mean Corpuscular Volume 84.0 fL (80.0-100.0); Nucleated Red Blood Cells % 0.2 %
[2025-02-11] MEDS: ALLOPURINOL 100 MG TAB PO SCH (09:58)
[2025-02-11] MEDS ORDERED: VANCOMYCIN PER PHARMACY 0 MG IV SCH (11:45)
[2025-02-11] MEDS: VANCOMYCIN 1.5GM/250ML 250 ML IV ONE (12:30)
--- NOTE | 2025-02-11 12:33 | DVHPN2 ---
Progress Note - Dictate Date Seen: Feb 11, 2025 Has the PT tested + for MRSA If YES, has PT been informed?: No Medical Necessity Reason Pt with a Central, PICC or Fol: Yes The following are medically ne: Central Line (Left non tunneled IJ and tunneled right subclavian), Young Catheter Reason for young catheter: Strict I&O vital signs Vital Sign Date Time Temp Pulse Resp B/P (MAP) Pulse Ox O2 Delivery O2 Flow Rate FiO2 02/11/25 11:00 65 121/65 02/11/25 10:00 20 99 02/11/25 09:50 Room Air 02/11/25 09:50 0 21 02/11/25 08:43 97.1 97.1 Total Intake and Output 02/10/25 02/10/25 02/11/25 15:00 23:00 07:00 Intake Total 1300 ml 160 ml 50 ml Output Total 400 ml 650 ml 1325 ml Balance 900 ml -490 ml -1275 ml medications Current Medications Medications Dose Ordered Sig/Natividad Route Start Time Stop Time Status Last Admin Dose Admin Thiamine HCl 100 mg DAILY IV 01/20/25 10:00 02/11/25 09:55 100 MG Folic Acid 1 mg/ Dextrose 50.2 ml @ 200.8 mls/ hr DAILY INJ 01/20/25 10:00 02/11/25 10:00 200.8 MLS/HR Metoclopramide HCl 5 mg Q8HR IV 01/23/25 16:30 02/11/25 06:01 5 MG Enteral Nutritional Formula 1,000 ml 50ML/HR GT 01/26/25 17:00 02/03/25 17:26 1,000 ML Sodium Chloride 10 ml QSHIFT@10,22 IV 01/28/25 22:00 02/11/25 09:58 10 ML Lactulose 30 ml DAILY PRN PO 01/30/25 07:00 01/31/25 21:39 30 ML Pantoprazole Sodium 40 mg DAILY IV 01/30/25 10:00 02/11/25 09:54 40 MG Spironolactone 25 mg DAILY PO 01/31/25 10:00 02/11/25 09:58 25 MG Acetaminophen 650 mg Q6HP PRN PO 01/31/25 07:15 02/10/25 05:44 650 MG Levofloxacin/ Dextrose 100 ml @ 100 mls/hr DAILY@1800 IV 01/31/25 18:00 02/10/25 18:12 100 MLS/HR Colchicine 0.6 mg DAILY PO 02/06/25 10:00 02/11/25 09:58 0.6 MG Ipratropium [place] 0.5 mg Q4HWA [facility] 02/05/25 18:00 02/11/25 09:50 0.5 MG Albuterol 2.5 mg Q4HWA [facility] 02/05/25 18:00 02/11/25 09:50 2.5 MG Methylprednisolone Sodium Succinate 40 mg DAILY IV 02/07/25 10:00 02/11/25 09:56 40 MG Insulin Glargine 13 units QAM SC 02/07/25 07:00 02/11/25 06:01 13 UNITS Dextrose 50 ml UD IV 02/06/25 21:00 Carvedilol 6.25 mg Q12HR PO 02/07/25 08:00 02/11/25 10:00 6.25 MG Empaglifozin 10 mg DAILY PO 02/07/25 10:00 02/11/25 09:58 10 MG Lisinopril 10 mg DAILY PO 02/08/25 10:00 02/11/25 10:00 10 MG Diagnostic Test (Pha) 1 strip Q6HR 02/08/25 18:00 02/11/25 11:28 1 STRIP Insulin Human Lispro Q6HR SC 02/08/25 18:00 02/11/25 11:28 1 UNITS Hydromorphone HCl 0.25 mg Q4HPRN PRN IV 02/09/25 11:00 Sodium Chloride 1,000 ml @ 200 mls/hr Q5H IV 02/10/25 07:00 02/11/25 12:30 200 MLS/HR Allopurinol 100 mg DAILY PO 02/11/25 10:00 02/11/25 09:58 100 MG Vancomycin HCl 0 ml @ 0 mls/hr UD IV 02/11/25 11:45 laboratory and microbiology Laboratory Tests 02/11/25 06:27 Test 02/11/25 06:27 Range/Units Serum Glucose 131 H 74-106 mg/dL Assessment/Plan Impression Acute hypoxic respiratory failure Hx of alcohol abuse Sepsis ESRD, on hemodialysis Obesity Events: S/p extubation, transitioned to face-mask right hand noted dry gangrene of fingers f/up with vascular sx, awaiting procedure Labs and imaging reviewed ABG reviewed Management Supplemental oxygen Titrate to maintain sats 90% or above Incentive spirometry Aspiration precautions swallow eval Continue antibiotics. Monitor hemoglobin HD per Nephrology Monitor renal function Monitor electrolytes. Supplement as necessary. Monitor ins and outs. Maintain euvolemia PT dvt proph Dietary Evaluation Review Comments: 1) Initiate Nephro-Haritha @ 1 tb qd 2) If patient remains NPO > 7 days, consider EN/TPN to meet at least 75% of estimated daily needs 3) If GI route is preferred, consider Nepro CarbSteady @ 30 mL/hr goal rate as tolerated. EN regimen will provide 1296 kcals. 58g Pro, and 523 mL free H2O per 24 hrs. Goal rate will meet ~ 92% estimated daily energy needs and ~ 43% estimated daily protein needs. 4) Advance to 60g CCHO renal diet when medically feasible, pending ST approal 5) Refer to outpatient RD/CDCES for weight management 6) Follow-up with cardiology, pulmonology, nephrology, gastroenterology, and hepatology 7) Follow-up with social economist r/t polysubstance abuse 8) Continue to monitor I&O, labs, and skin integrity Expected Outcomes/Goals: 1) patient to receive nutrition support within 7 days of NPO status 2) labs and GI symptoms to improve 3) diet to advance 4) f/u in 2-3 days Plan discussed with: Patient JONNATHAN FELICIANO MD Feb 11, 2025 12:33
--- NOTE | 2025-02-11 17:08 | DVHPNRES ---
Progress Note Date Seen: Feb 11, 2025 Resident Creating Document: GLENIS MCKENO RESIDENT Has the PT tested + for MRSA If YES, has PT been informed?: No Medical Necessity Reason Pt with a Central, PICC or Fol: Yes The following are medically ne: Central Line (Left non tunneled IJ and tunneled right subclavian), Young Catheter Reason for young catheter: Strict I&O Subjective Review of Systems Brief history: Bart Velasquez is a 60-year-old male with past medical history of alcohol use disorder, current heavy smoker, gout, dyslipidemia, came to the hospital due to low back pain. On 2nd day of admission, the patient was stabilized, developed AFib and SVT, underwent cardioversion and adenosine was given subsequently, due to respiratory distress and inability to maintain respiratory tract, the patient was sedated, intubated and put on mechanical ventilation. 02/11/2025: He was examined at bedside today. He was downgraded from ICU yesterday. He is complaining of pain in left ankle. Poor head control. Today, labs show neutrophilic leukocytosis with leukocytes trending up. Blood culture positive for Gram-positive cocci in clusters, restarted vancomycin. Awaiting surgery eval for necrosis right hand distal phalanges. Continue physiotherapy twice daily, diet, p.r.n. BiPAP. Objective vital signs Vital Sign Date Time Temp Pulse Resp B/P (MAP) Pulse Ox O2 Delivery O2 Flow Rate FiO2 02/11/25 16:49 97.5 83 18 114/72 (86) 97 97.5 02/11/25 14:04 Room Air* 0 21 Total Intake and Output 02/10/25 02/10/25 02/11/25 15:00 23:00 07:00 Intake Total 1300 ml 160 ml 50 ml Output Total 400 ml 650 ml 1325 ml Balance 900 ml -490 ml -1275 ml medications Current Medications Medications Dose Ordered Sig/Natividad Route Start Time Stop Time Status Last Admin Dose Admin Thiamine HCl 100 mg DAILY IV 01/20/25 10:00 02/11/25 09:55 100 MG Folic Acid 1 mg/ Dextrose 50.2 ml @ 200.8 mls/ hr DAILY INJ 01/20/25 10:00 02/11/25 10:00 200.8 MLS/HR Metoclopramide HCl 5 mg Q8HR IV 01/23/25 16:30 02/11/25 15:08 5 MG Enteral Nutritional Formula 1,000 ml 50ML/HR GT 01/26/25 17:00 02/03/25 17:26 1,000 ML Sodium Chloride 10 ml QSHIFT@10,22 IV 01/28/25 22:00 02/11/25 09:58 10 ML Lactulose 30 ml DAILY PRN PO 01/30/25 07:00 01/31/25 21:39 30 ML Pantoprazole Sodium 40 mg DAILY IV 01/30/25 10:00 02/11/25 09:54 40 MG Spironolactone 25 mg DAILY PO 01/31/25 10:00 02/11/25 09:58 25 MG Acetaminophen 650 mg Q6HP PRN PO 01/31/25 07:15 02/10/25 05:44 650 MG Levofloxacin/ Dextrose 100 ml @ 100 mls/hr DAILY@1800 IV 01/31/25 18:00 02/10/25 18:12 100 MLS/HR Colchicine 0.6 mg DAILY PO 02/06/25 10:00 02/11/25 09:58 0.6 MG Ipratropium [place] 0.5 mg Q4HWA [facility] 02/05/25 18:00 02/11/25 14:04 0.5 MG Albuterol 2.5 mg Q4HWA [facility] 02/05/25 18:00 02/11/25 14:04 2.5 MG Methylprednisolone Sodium Succinate 40 mg DAILY IV 02/07/25 10:00 02/11/25 09:56 40 MG Insulin Glargine 13 units QAM SC 02/07/25 07:00 02/11/25 06:01 13 UNITS Dextrose 50 ml UD IV 02/06/25 21:00 Carvedilol 6.25 mg Q12HR PO 02/07/25 08:00 02/11/25 10:00 6.25 MG Empaglifozin 10 mg DAILY PO 02/07/25 10:00 02/11/25 09:58 10 MG Lisinopril 10 mg DAILY PO 02/08/25 10:00 02/11/25 10:00 10 MG Diagnostic Test (Pha) 1 strip Q6HR 02/08/25 18:00 02/11/25 11:28 1 STRIP Insulin Human Lispro Q6HR SC 02/08/25 18:00 02/11/25 11:28 1 UNITS Hydromorphone HCl 0.25 mg Q4HPRN PRN IV 02/09/25 11:00 Sodium Chloride 1,000 ml @ 200 mls/hr Q5H IV 02/10/25 07:00 02/11/25 15:08 200 MLS/HR Allopurinol 100 mg DAILY PO 02/11/25 10:00 02/11/25 09:58 100 MG Vancomycin HCl 0 ml @ 0 mls/hr UD IV 02/11/25 11:45 Examination General Appearance: Alert, following command, can speak few words HEENT: Atraumatic, PERRLA, EOMI, Mucous membrane moist/pink Respiratory: Clear to auscultation, Normal air movement Cardiovascular: Regular rate, Normal S1, Normal S2, No murmurs, no chest wall tenderness Abdominal: Normal bowel sounds, Soft, No tenderness, No hepatospenomegaly, No masses Extremities: Bilateral ankle and left wrist swollen, warm and tender. Right hand distal phalanges or black (necrotic) Skin: No rashes, No breakdown, No significant lesion Neuro: Normal gait, Normal speech, Strength at 5/5 X4 ext, Normal tone, Sensation intact, Cranial nerves 3-12 NL, Reflexes 2+ Psych/Mental Status: Mental status NL, Mood NL laboratory and microbiology Laboratory Tests 02/11/25 06:27 Test 02/11/25 06:27 Range/Units Serum Glucose 131 H 74-106 mg/dL Microbiology Date/Time Source Procedure Growth Status 02/10/25 19:00 Voided Urine Urine Culture - Preliminary Resulted 02/10/25 12:40 Blood Blood Culture - Preliminary Resulted 01/29/25 11:35 Sputum Gram Stain - Final Complete 01/29/25 11:35 Sputum Respiratory Culture - Final Complete 01/23/25 20:14 Lung - Final Resulted 01/23/25 20:14 Lung - Final Resulted 01/23/25 20:14 Lung - Preliminary Resulted 01/23/25 20:14 Lung - Preliminary Resulted 01/23/25 20:14 Lung - Final See Separate Report... Resulted Problem List/Assessment/Plan Problem List/Assessment/Plan NEURO: Acute metabolic/toxic encephalopathy likely due to sepsis/alcohol use disorder Sedated, on MV with RASS score -[address] scan showed no significant intracranial abnormalities CARDIOVASCULAR: ? Cardiogenic shock, likely due to AFib with RVR/SVT Atrial fibrillation with RVR/SVT Acquired coagulopathy ? Acute on chronic Heart failure with reduced ejection fraction NSTEMI, likely type 2 due to above Sinus bradycardia Ruled out Endocarditis Patient was 2 times reverted to NSR with cardioversion, subsequently put on amiodarone drip for 2 days, discontinued due to regaining sinus rhythm and bradycardia EKG upon admission showed sinus rhythm with no significant ST or T-wave changes Subsequent EKGs showed AFib with RVR and SVT, and reverted to normal sinus rhythm by giving amiodarone drip for 2 days Echo shows, LVEF 45% severe pulmonary hypertension (RVSP 64) BNP is raised at 450s CLAUDE on 01/27/2025, normal study PULMONARY: Acute hypoxic respiratory failure, likely due to pneumonia Pneumonia, likely due to Gram-positive/Gram-negative bacteria/viral ? Pulmonary hypertension Possible obstructive sleep apnea Atelectasis CT scan shows, bilateral small pleural effusion Chest x-ray shows, closed left costophrenic angle Bronchoscopy performed on 01/16/2024, had copious amount of mucus on bilateral main bronchus, sample sent for culture Pulmonology is on the board Breathing treatment and chest percussion q.4hr GASTROINTESTINAL: ? Upper GI bleeding, likely due to liver cirrhosis/portal hypertension Alcohol use disorder Hepatomegaly and hepatic steatosis, likely due to alcohol use disorder Splenomegaly, likely due to above Bilateral indirect inguinal hernia, fatigue content extending to the scrotum Diverticulosis GI is on the board, recommended medical management at the moment Thiamine and folic acid GENITOURINARY: JOSE on possible CKD, likely VMN (baseline record not available) Nephrology on the board, performed 4 session of HD, last session on 01/26/2025, creatinine normalized Consulted Radiology for tunneled catheter removal, removed catheter ENDOCRINE: Newly diagnosed Diabetes, with hyperglycemia Dyslipidemia Thyroid nodule Obesity HBA1c is 6.5 Lispro subcutaneous q.6 hours METABOLIC: Gout Hypokalemia Hypocalcemia Hypertriglyceridemia, likely due to propofol side effects Mild hypernatremia HEME: Severe thrombocytopenia, likely due to liver cirrhosis, normalized Mild anemia, normocytic normochromic Status post transfusion of 1 unit RBC, 1 units FFP, and 1 unit platelet INFECTIOUS DISEASE: ? Septic shock likely due to pneumonia/bacteremia Recurrent spikes of fever Possible drug fever Blood culture shows Gram-negative right, Salmonella sensitive to ampicillin Sputum culture shows E coli, sensitive to ampicillin Vancomycin and cefepime was given for 5 days, DC on 01/15/2025 Ampicillin IV started on 01/15/2025, due to episodes of fever, ampicillin discontinued on 01/24/2025 Over 01/16/24, the patient had multiple episodes of fever, patient is started back on vancomycin and meropenem on 01/24/2025, stopped vancomycin on 01/30/25 (given for 6 days) for possible drug fever Acetaminophen p.r.n. for fever Consulted infectious disease for fever of unknown origin, recommended to discontinue other antibiotic and give levofloxacin for 2 weeks Bacteremia 02/11/25 Blood culture positive for Gram-positive cocci in clusters, restarted vancomycin DERMATOLOGY: Right hand acute PAD/acute limb ischemia possibly due to arterial thrombosis, leading to possible right hand fingertip necrosis Right hand distal phalanges riding, likely due to radial artery thrombosis Doppler ultrasound shows no significant arterial disease Vascular surgeon consulted, performed right radial artery exploration with subsequent performed thrombectomy of the proximal radial artery, due to necrosis of distal phalanges of right hand, planned for amputation MUSCULOSKELETAL: Chronic back pain, due to severe lumbar disc disease Gout flare-up Uric acid is bed at 12.8 Ketorolac 30 mg once Methylprednisolone 40 mg daily Colchicine and allopurinol DIET: Puree diet DVT prophylax: Lovenox therapeutic dose started on 01/30/25 GI prophylaxis: Protonix 40 mg daily Bowel regimen: Lactulose 30 mg daily PRN Code status: Code status discussed with the family (son), full code LINES/DRAINS/ACCESS: ETT: Intubated on 01/19/2025 and extubated on 02/05/2025 Right subclavian tunneled catheter, placed on 01/26/2020, removed on 02/08/2025 Drips: All drips discontinued Young catheter: Exchanged on 01/30/2025 DISPOSITION: Downgraded to med/surge with sitter Critical care time spent more than 30 minutes. Case discussed with Dr. Chadwick Plan discussed with: Patient (, family on besdside) My Orders My Orders Orders - GLENIS MCKEON RESIDENT Procedure Category Date Status Time Vancomycin Per PHA 02/11/25 In Process Pharmacy 11:45 Complete Blood Count LAB 02/12/25 Verified 04:00 Creatinine LAB 02/12/25 Verified 04:00 Vancomycin,Random LAB 02/12/25 Verified 04:00 Dietary Evaluation Review Comments: 1) Initiate Nephro-Haritha @ 1 tb qd 2) If patient remains NPO > 7 days, consider EN/TPN to meet at least 75% of estimated daily needs 3) If GI route is preferred, consider Nepro CarbSteady @ 30 mL/hr goal rate as tolerated. EN regimen will provide 1296 kcals. 58g Pro, and 523 mL free H2O per 24 hrs. Goal rate will meet ~ 92% estimated daily energy needs and ~ 43% estimated daily protein needs. 4) Advance to 60g CCHO renal diet when medically feasible, pending ST approal 5) Refer to outpatient RD/CDCES for weight management 6) Follow-up with cardiology, pulmonology, nephrology, gastroenterology, and hepatology 7) Follow-up with web content & social media manager r/t polysubstance abuse 8) Continue to monitor I&O, labs, and skin integrity Expected Outcomes/Goals: 1) patient to receive nutrition support within 7 days of NPO status 2) labs and GI symptoms to improve 3) diet to advance 4) f/u in 2-3 days Date of Service: Feb 11, 2025 Billing Provider: PINA CHADWICK MD Common Visit Codes: [id number] INP/OBS CARE(HIGH) GLENIS MCKEON RESIDENT Feb 11, 2025 17:08 PINA CHADWICK MD Feb 15, 2025 22:13
[2025-02-12] VITALS (19 sets, daily range): BP systolic 100–116; BP diastolic 60–76; PULSE 71–98; RESP 16–20; TEMP 97.8–98.7; O2SAT 94–100
[2025-02-12 07:53] LABS: Mean Corpuscular Volume 84.0 fL (80.0-100.0)
[2025-02-12 07:55] LABS: Hematocrit 20.4 % (41.0-53.0); Mean Corpuscular Hemoglobin 28.1 pg (28.0-32.0)
[2025-02-12 08:03] LABS: Hemoglobin 6.8 g/dL (13.5-17.5)
[2025-02-12 08:32] LABS: Total Cells Counted 100.0 (100)
--- NOTE | 2025-02-12 14:31 | DVHPN2 ---
Progress Note - Dictate Date Seen: Feb 12, 2025 Has the PT tested + for MRSA If YES, has PT been informed?: No Medical Necessity Reason Pt with a Central, PICC or Fol: Yes The following are medically ne: Central Line (Left non tunneled IJ and tunneled right subclavian), Young Catheter Reason for young catheter: Strict I&O vital signs Vital Sign Date Time Temp Pulse Resp B/P (MAP) Pulse Ox O2 Delivery O2 Flow Rate FiO2 02/12/25 13:35 84 18 99 02/12/25 13:29 Room Air* 0 21 02/12/25 13:02 98.1 105/63 98.1 Total Intake and Output 02/11/25 02/11/25 02/12/25 15:00 23:00 07:00 Intake Total 600 ml 850 ml Output Total 1575 ml 1800 ml Balance -975 ml -950 ml medications Current Medications Medications Dose Ordered Sig/Natividad Route Start Time Stop Time Status Last Admin Dose Admin Thiamine HCl 100 mg DAILY IV 01/20/25 10:00 02/12/25 09:15 100 MG Folic Acid 1 mg/ Dextrose 50.2 ml @ 200.8 mls/ hr DAILY INJ 01/20/25 10:00 02/12/25 09:17 200.8 MLS/HR Metoclopramide HCl 5 mg Q8HR IV 01/23/25 16:30 02/12/25 14:21 5 MG Enteral Nutritional Formula 1,000 ml 50ML/HR GT 01/26/25 17:00 02/03/25 17:26 1,000 ML Sodium Chloride 10 ml QSHIFT@10,22 IV 01/28/25 22:00 02/12/25 09:19 10 ML Lactulose 30 ml DAILY PRN PO 01/30/25 07:00 01/31/25 21:39 30 ML Pantoprazole Sodium 40 mg DAILY IV 01/30/25 10:00 02/12/25 09:14 40 MG Spironolactone 25 mg DAILY PO 01/31/25 10:00 02/12/25 09:15 25 MG Acetaminophen 650 mg Q6HP PRN PO 01/31/25 07:15 02/10/25 05:44 650 MG Colchicine 0.6 mg DAILY PO 02/06/25 10:00 02/12/25 09:16 0.6 MG Ipratropium [place] 0.5 mg Q4HWA [facility] 02/05/25 18:00 02/12/25 13:29 0.5 MG Albuterol 2.5 mg Q4HWA [facility] 02/05/25 18:00 02/12/25 13:29 2.5 MG Methylprednisolone Sodium Succinate 40 mg DAILY IV 02/07/25 10:00 02/12/25 09:14 40 MG Insulin Glargine 13 units QAM SC 02/07/25 07:00 02/12/25 06:46 13 UNITS Dextrose 50 ml UD IV 02/06/25 21:00 Carvedilol 6.25 mg Q12HR PO 02/07/25 08:00 02/12/25 09:22 6.25 MG Empaglifozin 10 mg DAILY PO 02/07/25 10:00 02/12/25 09:15 10 MG Lisinopril 10 mg DAILY PO 02/08/25 10:00 02/12/25 09:22 10 MG Diagnostic Test (Pha) 1 strip Q6HR 02/08/25 18:00 02/12/25 11:11 1 STRIP Insulin Human Lispro Q6HR SC 02/08/25 18:00 02/11/25 17:11 2 UNITS Hydromorphone HCl 0.25 mg Q4HPRN PRN IV 02/09/25 11:00 Sodium Chloride 1,000 ml @ 200 mls/hr Q5H IV 02/10/25 07:00 02/12/25 14:21 200 MLS/HR Allopurinol 100 mg DAILY PO 02/11/25 10:00 02/12/25 09:16 100 MG Vancomycin HCl 0 ml @ 0 mls/hr UD IV 02/11/25 11:45 laboratory and microbiology Laboratory Tests 02/12/25 07:06 02/11/25 06:27 Test 02/11/25 06:27 Range/Units Serum Glucose 131 H 74-106 mg/dL Assessment/Plan Impression Acute hypoxic respiratory failure Hx of alcohol abuse Sepsis ESRD, on hemodialysis Obesity Events: S/p extubation right hand noted dry gangrene of fingers f/up with vascular sx, awaiting procedure Labs and imaging reviewed ABG reviewed Management Supplemental oxygen Titrate to maintain sats 90% or above Incentive spirometry Aspiration precautions swallow eval Continue antibiotics. Monitor hemoglobin HD per Nephrology Monitor renal function Monitor electrolytes. Supplement as necessary. Monitor ins and outs. Maintain euvolemia PT dvt proph Dietary Evaluation Review Comments: 1) Initiate Nephro-Haritha @ 1 tb qd 2) If patient remains NPO > 7 days, consider EN/TPN to meet at least 75% of estimated daily needs 3) If GI route is preferred, consider Nepro CarbSteady @ 30 mL/hr goal rate as tolerated. EN regimen will provide 1296 kcals. 58g Pro, and 523 mL free H2O per 24 hrs. Goal rate will meet ~ 92% estimated daily energy needs and ~ 43% estimated daily protein needs. 4) Advance to 60g CCHO renal diet when medically feasible, pending ST approal 5) Refer to outpatient RD/CDCES for weight management 6) Follow-up with cardiology, pulmonology, nephrology, gastroenterology, and hepatology 7) Follow-up with healthcare social worker r/t polysubstance abuse 8) Continue to monitor I&O, labs, and skin integrity Expected Outcomes/Goals: 1) patient to receive nutrition support within 7 days of NPO status 2) labs and GI symptoms to improve 3) diet to advance 4) f/u in 2-3 days Plan discussed with: Patient JONNATHAN FELICIANO MD Feb 12, 2025 14:31
--- NOTE | 2025-02-12 16:07 | DVHPNRES ---
Progress Note Date Seen: Feb 12, 2025 Resident Creating Document: MARYBETH MCCARTHY RESIDENT Has the PT tested + for MRSA If YES, has PT been informed?: No Medical Necessity Reason Pt with a Central, PICC or Fol: Yes The following are medically ne: Central Line (Left non tunneled IJ and tunneled right subclavian), Young Catheter Reason for young catheter: Strict I&O Subjective Review of Systems The pstient was examined at bedside in the morning . Patient was angry at the family and did not want to be examined. Leukocytosis trending down. Surgery Evaluation for right distal phalanx pending. Objective vital signs Vital Sign Date Time Temp Pulse Resp B/P (MAP) Pulse Ox O2 Delivery O2 Flow Rate FiO2 02/12/25 15:49 98.2 86 18 116/76 98.2 02/12/25 13:35 99 02/12/25 13:29 Room Air* 0 21 Total Intake and Output 02/11/25 02/11/25 02/12/25 15:00 23:00 07:00 Intake Total 600 ml 850 ml Output Total 1575 ml 1800 ml Balance -975 ml -950 ml medications Current Medications Medications Dose Ordered Sig/Natividad Route Start Time Stop Time Status Last Admin Dose Admin Thiamine HCl 100 mg DAILY IV 01/20/25 10:00 02/12/25 09:15 100 MG Folic Acid 1 mg/ Dextrose 50.2 ml @ 200.8 mls/ hr DAILY INJ 01/20/25 10:00 02/12/25 09:17 200.8 MLS/HR Metoclopramide HCl 5 mg Q8HR IV 01/23/25 16:30 02/12/25 14:21 5 MG Enteral Nutritional Formula 1,000 ml 50ML/HR GT 01/26/25 17:00 02/03/25 17:26 1,000 ML Sodium Chloride 10 ml QSHIFT@10,22 IV 01/28/25 22:00 02/12/25 09:19 10 ML Lactulose 30 ml DAILY PRN PO 01/30/25 07:00 01/31/25 21:39 30 ML Pantoprazole Sodium 40 mg DAILY IV 01/30/25 10:00 02/12/25 09:14 40 MG Spironolactone 25 mg DAILY PO 01/31/25 10:00 02/12/25 09:15 25 MG Acetaminophen 650 mg Q6HP PRN PO 01/31/25 07:15 02/10/25 05:44 650 MG Colchicine 0.6 mg DAILY PO 02/06/25 10:00 02/12/25 09:16 0.6 MG Ipratropium [place] 0.5 mg Q4HWA [facility] 02/05/25 18:00 02/12/25 13:29 0.5 MG Albuterol 2.5 mg Q4HWA [facility] 02/05/25 18:00 02/12/25 13:29 2.5 MG Methylprednisolone Sodium Succinate 40 mg DAILY IV 02/07/25 10:00 02/12/25 09:14 40 MG Insulin Glargine 13 units QAM SC 02/07/25 07:00 02/12/25 06:46 13 UNITS Dextrose 50 ml UD IV 02/06/25 21:00 Carvedilol 6.25 mg Q12HR PO 02/07/25 08:00 02/12/25 09:22 6.25 MG Empaglifozin 10 mg DAILY PO 02/07/25 10:00 02/12/25 09:15 10 MG Lisinopril 10 mg DAILY PO 02/08/25 10:00 02/12/25 09:22 10 MG Diagnostic Test (Pha) 1 strip Q6HR 02/08/25 18:00 02/12/25 11:11 1 STRIP Insulin Human Lispro Q6HR SC 02/08/25 18:00 02/11/25 17:11 2 UNITS Hydromorphone HCl 0.25 mg Q4HPRN PRN IV 02/09/25 11:00 Sodium Chloride 1,000 ml @ 200 mls/hr Q5H IV 02/10/25 07:00 02/12/25 14:21 200 MLS/HR Allopurinol 100 mg DAILY PO 02/11/25 10:00 02/12/25 09:16 100 MG Vancomycin HCl 0 ml @ 0 mls/hr UD IV 02/11/25 11:45 Vancomycin HCl 100 ml @ 100 mls/hr Q18H IV 02/12/25 15:00 Examination General Appearance: Alert, following command, can speak few words HEENT: Atraumatic, PERRLA, EOMI, Mucous membrane moist/pink Respiratory: Clear to auscultation, Normal air movement Cardiovascular: Regular rate, Normal S1, Normal S2, No murmurs, no chest wall tenderness Abdominal: Normal bowel sounds, Soft, No tenderness, No hepatospenomegaly, No masses Extremities: Bilateral ankle and left wrist swollen, warm and tender. Right hand distal phalanges or black (necrotic) Skin: No rashes, No breakdown, No significant lesion Neuro: Normal gait, Normal speech, Strength at 5/5 X4 ext, Normal tone, Sensation intact, Cranial nerves 3-12 NL, Reflexes 2+ Psych/Mental Status: Mental status NL, Mood NL laboratory and microbiology Laboratory Tests 02/12/25 07:06 02/11/25 06:27 Test 02/11/25 06:27 Range/Units Serum Glucose 131 H 74-106 mg/dL Microbiology Date/Time Source Procedure Growth Status 02/10/25 19:00 Voided Urine Urine Culture - Preliminary Resulted 02/10/25 12:40 Blood Blood Culture - Preliminary Resulted 01/29/25 11:35 Sputum Gram Stain - Final Complete 01/29/25 11:35 Sputum Respiratory Culture - Final Complete 01/23/25 20:14 Lung - Final Resulted 01/23/25 20:14 Lung - Final Resulted 01/23/25 20:14 Lung - Preliminary Resulted 01/23/25 20:14 Lung - Preliminary Resulted 01/23/25 20:14 Lung - Final See Separate Report... Resulted Problem List/Assessment/Plan Problem List/Assessment/Plan NEURO: Acute metabolic/toxic encephalopathy likely due to sepsis/alcohol use disorder Sedated, on MV with RASS score -[address] scan showed no significant intracranial abnormalities CARDIOVASCULAR: ? Cardiogenic shock, likely due to AFib with RVR/SVT Atrial fibrillation with RVR/SVT Acquired coagulopathy ? Acute on chronic Heart failure with reduced ejection fraction NSTEMI, likely type 2 due to above Sinus bradycardia Ruled out Endocarditis Patient was 2 times reverted to NSR with cardioversion, subsequently put on amiodarone drip for 2 days, discontinued due to regaining sinus rhythm and bradycardia EKG upon admission showed sinus rhythm with no significant ST or T-wave changes Subsequent EKGs showed AFib with RVR and SVT, and reverted to normal sinus rhythm by giving amiodarone drip for 2 days Echo shows, LVEF 45% severe pulmonary hypertension (RVSP 64) BNP is raised at 450s CLAUDE on 01/27/2025, normal study PULMONARY: Acute hypoxic respiratory failure, likely due to pneumonia Pneumonia, likely due to Gram-positive/Gram-negative bacteria/viral ? Pulmonary hypertension Possible obstructive sleep apnea Atelectasis CT scan shows, bilateral small pleural effusion Chest x-ray shows, closed left costophrenic angle Bronchoscopy performed on 01/16/2024, had copious amount of mucus on bilateral main bronchus, sample sent for culture Pulmonology is on the board Breathing treatment and chest percussion q.4hr GASTROINTESTINAL: ? Upper GI bleeding, likely due to liver cirrhosis/portal hypertension Alcohol use disorder Hepatomegaly and hepatic steatosis, likely due to alcohol use disorder Splenomegaly, likely due to above Bilateral indirect inguinal hernia, fatigue content extending to the scrotum Diverticulosis GI is on the board, recommended medical management at the moment Thiamine and folic acid GENITOURINARY: JOSE on possible CKD, likely VMN (baseline record not available) Nephrology on the board, performed 4 session of HD, last session on 01/26/2025, creatinine normalized Consulted Radiology for tunneled catheter removal, removed catheter ENDOCRINE: Newly diagnosed Diabetes, with hyperglycemia Dyslipidemia Thyroid nodule Obesity HBA1c is 6.5 Lispro subcutaneous q.6 hours METABOLIC: Gout Hypokalemia Hypocalcemia Hypertriglyceridemia, likely due to propofol side effects Mild hypernatremia HEME: Severe thrombocytopenia, likely due to liver cirrhosis, normalized Mild anemia, normocytic normochromic Status post transfusion of 1 unit RBC, 1 units FFP, and 1 unit platelet INFECTIOUS DISEASE: ? Septic shock likely due to pneumonia/bacteremia Recurrent spikes of fever Possible drug fever Blood culture shows Gram-negative right, Salmonella sensitive to ampicillin Sputum culture shows E coli, sensitive to ampicillin Vancomycin and cefepime was given for 5 days, DC on 01/15/2025 Ampicillin IV started on 01/15/2025, due to episodes of fever, ampicillin discontinued on 01/24/2025 Over 01/16/24, the patient had multiple episodes of fever, patient is started back on vancomycin and meropenem on 01/24/2025, stopped vancomycin on 01/30/25 (given for 6 days) for possible drug fever Acetaminophen p.r.n. for fever Consulted infectious disease for fever of unknown origin, recommended to discontinue other antibiotic and give levofloxacin for 2 weeks Bacteremia 02/11/25 Blood culture positive for Gram-positive cocci in clusters, restarted vancomycin DERMATOLOGY: Right hand acute PAD/acute limb ischemia possibly due to arterial thrombosis, leading to possible right hand fingertip necrosis Right hand distal phalanges riding, likely due to radial artery thrombosis Doppler ultrasound shows no significant arterial disease Vascular surgeon consulted, performed right radial artery exploration with subsequent performed thrombectomy of the proximal radial artery, due to necrosis of distal phalanges of right hand, planned for amputation MUSCULOSKELETAL: Chronic back pain, due to severe lumbar disc disease Gout flare-up Uric acid is bed at 12.8 Ketorolac 30 mg once Methylprednisolone 40 mg daily Colchicine and allopurinol DIET: Puree diet DVT prophylax: Lovenox therapeutic dose started on 01/30/25 GI prophylaxis: Protonix 40 mg daily Bowel regimen: Lactulose 30 mg daily PRN Code status: Code status discussed with the family (son), full code LINES/DRAINS/ACCESS: ETT: Intubated on 01/19/2025 and extubated on 02/05/2025 Right subclavian tunneled catheter, placed on 01/26/2020, removed on 02/08/2025 Drips: All drips discontinued Young catheter: Exchanged on 01/30/2025 DISPOSITION: Downgraded to med/surge with sitter Critical care time spent more than 25 minutes. Case discussed with Dr. Chadwick Plan discussed with: Patient (Sister on besdside) Plan discussed with: Patient, Other (sister) My Orders My Orders Orders - MARYBETH MCCARTHY RESIDENT Procedure Category Date Status Time Hemoglobin & LAB 02/12/25 Logged Hematocrit 15:34 Dietary Evaluation Review Comments: 1) Initiate Nephro-Haritha @ 1 tb qd 2) If patient remains NPO > 7 days, consider EN/TPN to meet at least 75% of estimated daily needs 3) If GI route is preferred, consider Nepro CarbSteady @ 30 mL/hr goal rate as tolerated. EN regimen will provide 1296 kcals. 58g Pro, and 523 mL free H2O per 24 hrs. Goal rate will meet ~ 92% estimated daily energy needs and ~ 43% estimated daily protein needs. 4) Advance to 60g CCHO renal diet when medically feasible, pending ST approal 5) Refer to outpatient RD/CDCES for weight management 6) Follow-up with cardiology, pulmonology, nephrology, gastroenterology, and hepatology 7) Follow-up with child protective services social worker r/t polysubstance abuse 8) Continue to monitor I&O, labs, and skin integrity Expected Outcomes/Goals: 1) patient to receive nutrition support within 7 days of NPO status 2) labs and GI symptoms to improve 3) diet to advance 4) f/u in 2-3 days Date of Service: Feb 12, 2025 Billing Provider: PINA CHADWICK MD Common Visit Codes: [id number] INP/OBS CARE(HIGH) MARYBETH MCCARTHY RESIDENT Feb 12, 2025 16:07 PINA CHADWICK MD Feb 15, 2025 22:19
[2025-02-12] MEDS: VANCOMYCIN 750MG KIT 100 ML IV SCH (16:09)
--- NOTE | 2025-02-12 17:33 | DVHPN2 ---
Progress Note - Dictate Date Seen: Feb 12, 2025 Has the PT tested + for MRSA If YES, has PT been informed?: No Medical Necessity Reason Pt with a Central, PICC or Fol: Yes The following are medically ne: Central Line (Left non tunneled IJ and tunneled right subclavian), Young Catheter Reason for young catheter: Strict I&O Subjective Patient downgraded to the floor Hemoglobin dropped down to 6.8 No active GI bleeding reported, three loose bowel movements which were brown as per sitter No GI bleeding; liver enzymes trending downward. vital signs Vital Sign Date Time Temp Pulse Resp B/P (MAP) Pulse Ox O2 Delivery O2 Flow Rate FiO2 02/12/25 16:00 97.8 81 18 116/76 (89) 95 97.8 02/12/25 13:29 Room Air* 0 21 Total Intake and Output 02/11/25 02/11/25 02/12/25 15:00 23:00 07:00 Intake Total 600 ml 850 ml Output Total 1575 ml 1800 ml Balance -975 ml -950 ml medications Current Medications Medications Dose Ordered Sig/Natividad Route Start Time Stop Time Status Last Admin Dose Admin Thiamine HCl 100 mg DAILY IV 01/20/25 10:00 02/12/25 09:15 100 MG Folic Acid 1 mg/ Dextrose 50.2 ml @ 200.8 mls/ hr DAILY INJ 01/20/25 10:00 02/12/25 09:17 200.8 MLS/HR Metoclopramide HCl 5 mg Q8HR IV 01/23/25 16:30 02/12/25 14:21 5 MG Enteral Nutritional Formula 1,000 ml 50ML/HR GT 01/26/25 17:00 02/03/25 17:26 1,000 ML Sodium Chloride 10 ml QSHIFT@10,22 IV 01/28/25 22:00 02/12/25 09:19 10 ML Lactulose 30 ml DAILY PRN PO 01/30/25 07:00 01/31/25 21:39 30 ML Pantoprazole Sodium 40 mg DAILY IV 01/30/25 10:00 02/12/25 09:14 40 MG Spironolactone 25 mg DAILY PO 01/31/25 10:00 02/12/25 09:15 25 MG Acetaminophen 650 mg Q6HP PRN PO 01/31/25 07:15 02/10/25 05:44 650 MG Colchicine 0.6 mg DAILY PO 02/06/25 10:00 02/12/25 09:16 0.6 MG Ipratropium [place] 0.5 mg Q4HWA NEB 02/05/25 18:00 02/12/25 13:29 0.5 MG Albuterol 2.5 mg Q4HWA NEB 02/05/25 18:00 02/12/25 13:29 2.5 MG Methylprednisolone Sodium Succinate 40 mg DAILY IV 02/07/25 10:00 02/12/25 09:14 40 MG Insulin Glargine 13 units QAM SC 02/07/25 07:00 02/12/25 06:46 13 UNITS Dextrose 50 ml UD IV 02/06/25 21:00 Carvedilol 6.25 mg Q12HR PO 02/07/25 08:00 02/12/25 09:22 6.25 MG Empaglifozin 10 mg DAILY PO 02/07/25 10:00 02/12/25 09:15 10 MG Lisinopril 10 mg DAILY PO 02/08/25 10:00 02/12/25 09:22 10 MG Diagnostic Test (Pha) 1 strip Q6HR 02/08/25 18:00 02/12/25 17:23 1 STRIP Insulin Human Lispro Q6HR SC 02/08/25 18:00 02/12/25 17:23 2 UNITS Hydromorphone HCl 0.25 mg Q4HPRN PRN IV 02/09/25 11:00 Sodium Chloride 1,000 ml @ 200 mls/hr Q5H IV 02/10/25 07:00 02/12/25 16:10 200 MLS/HR Allopurinol 100 mg DAILY PO 02/11/25 10:00 02/12/25 09:16 100 MG Vancomycin HCl 0 ml @ 0 mls/hr UD IV 02/11/25 11:45 Vancomycin HCl 100 ml @ 100 mls/hr Q18H IV 02/12/25 15:00 02/12/25 16:09 100 MLS/HR objective General: Extubated, awake afebrile, mucosae are moist Cardiovascular: Normal S1 and S2, distant heart sound Respiratory: Mechanically assisted ventilation, Clear lung sounds on auscultation Abdomen: Soft, nontender, no organomegaly, normal bowel sounds laboratory and microbiology Laboratory Tests 02/12/25 07:06 02/11/25 06:27 Test 02/11/25 06:27 Range/Units Serum Glucose 131 H 74-106 mg/dL Problems(with codes): (1) Salmonella bacteremia (2) E coli infection (3) Septic shock (4) UGIB (upper gastrointestinal bleed) (5) Sepsis, unspecified organism (6) Elevated liver enzymes (7) SVT (supraventricular tachycardia) (8) Acute tubular necrosis (9) CHF (congestive heart failure) Prognosis Plan Transfuse 1 unit PRBC Check repeat stool for occult blood Last stool for occult blood negative on 02/10 IV Protonix 40 mg q.12 hours I will follow up patient with you Patient is still not stable for endoscopic workup at this time Dietary Evaluation Review Comments: 1) Initiate Nephro-Haritha @ 1 tb qd 2) If patient remains NPO > 7 days, consider EN/TPN to meet at least 75% of estimated daily needs 3) If GI route is preferred, consider Nepro CarbSteady @ 30 mL/hr goal rate as tolerated. EN regimen will provide 1296 kcals. 58g Pro, and 523 mL free H2O per 24 hrs. Goal rate will meet ~ 92% estimated daily energy needs and ~ 43% estimated daily protein needs. 4) Advance to 60g CCHO renal diet when medically feasible, pending ST approal 5) Refer to outpatient RD/[facility] for weight management 6) Follow-up with cardiology, pulmonology, nephrology, gastroenterology, and hepatology 7) Follow-up with rn social work r/t polysubstance abuse 8) Continue to monitor I&O, labs, and skin integrity Expected Outcomes/Goals: 1) patient to receive nutrition support within 7 days of NPO status 2) labs and GI symptoms to improve 3) diet to advance 4) f/u in 2-3 days Plan discussed with: Patient, Other (Nurse) PALMIRA OCHOA MD Feb 12, 2025 17:32
[2025-02-12 20:35] LABS: Hematocrit 26.1 % (41.0-53.0); Hemoglobin 8.7 g/dL (13.5-17.5)
[2025-02-12 21:16] LABS: Albumin 3.4 g/dL (3.2-4.8); Anion Gap 12 (5-15); BUN/Creatinine Ratio 25.8 (10.0-20.0); Bilirubin, Total 0.6 mg/dL (0.2-1.0); Potassium 4.7 mmol/L (3.5-5.1); Total Protein 5.9 g/dL (5.7-8.2)
[2025-02-12 21:19] LABS: Alanine Aminotransferase 51 U/L (7-40); Alkaline Phosphatase 168 U/L (46-116); Blood Urea Nitrogen 32 mg/dL (9-23); Calcium 8.0 mg/dL (8.7-10.4); Carbon Dioxide 15 mmol/L (20-31); Chloride 108 mmol/L (98-107); Glucose 164 mg/dL (74-106); Sodium 135 mmol/L (136-145)
[2025-02-13] VITALS (19 sets, daily range): BP systolic 113–134; BP diastolic 63–90; PULSE 77–101; RESP 16–22; TEMP 97.4–98.3; O2SAT 82–100
[2025-02-13 06:01] LABS: Hematocrit 26.6 % (41.0-53.0); Hemoglobin 9.1 g/dL (13.5-17.5); Mean Corpuscular Hemoglobin 28.6 pg (28.0-32.0); Mean Corpuscular Volume 83.7 fL (80.0-100.0)
[2025-02-13 06:17] LABS: Total Cells Counted 100.0 (100)
--- NOTE | 2025-02-13 11:43 | DVHPN2 ---
Consult Progress Note Date Seen: Feb 05, 2025 Objective vital signs Vital Sign Date Time Temp Pulse Resp B/P (MAP) Pulse Ox O2 Delivery O2 Flow Rate FiO2 02/13/25 11:15 117/74 02/13/25 11:14 84 02/13/25 10:06 18 100 02/13/25 09:59 Room Air* 0 21 02/13/25 09:00 97.7 97.7 Total Intake and Output 02/12/25 02/12/25 02/13/25 15:00 23:00 07:00 Intake Total 954 ml 2777 ml 200 ml Output Total 2053 ml 1600 ml Balance 954 ml 724 ml -1400 ml medications Current Medications Medications Dose Ordered Sig/Natividad Route Start Time Stop Time Status Last Admin Dose Admin Thiamine HCl 100 mg DAILY IV 01/20/25 10:00 02/13/25 11:14 100 MG Folic Acid 1 mg/ Dextrose 50.2 ml @ 200.8 mls/ hr DAILY INJ 01/20/25 10:00 02/13/25 11:17 200.8 MLS/HR Metoclopramide HCl 5 mg Q8HR IV 01/23/25 16:30 02/13/25 06:01 5 MG Enteral Nutritional Formula 1,000 ml 50ML/HR GT 01/26/25 17:00 02/03/25 17:26 1,000 ML Sodium Chloride 10 ml QSHIFT@10,22 IV 01/28/25 22:00 02/13/25 10:00 10 ML Lactulose 30 ml DAILY PRN PO 01/30/25 07:00 01/31/25 21:39 30 ML Pantoprazole Sodium 40 mg DAILY IV 01/30/25 10:00 02/13/25 11:13 40 MG Spironolactone 25 mg DAILY PO 01/31/25 10:00 02/13/25 11:19 25 MG Acetaminophen 650 mg Q6HP PRN PO 01/31/25 07:15 02/10/25 05:44 650 MG Colchicine 0.6 mg DAILY PO 02/06/25 10:00 02/13/25 11:16 0.6 MG Ipratropium [place] 0.5 mg Q4HWA NEB 02/05/25 18:00 02/13/25 09:58 0.5 MG Albuterol 2.5 mg Q4HWA NEB 02/05/25 18:00 02/13/25 09:58 2.5 MG Methylprednisolone Sodium Succinate 40 mg DAILY IV 02/07/25 10:00 02/13/25 11:13 40 MG Insulin Glargine 13 units QAM SC 02/07/25 07:00 02/13/25 06:00 13 UNITS Dextrose 50 ml UD IV 02/06/25 21:00 Carvedilol 6.25 mg Q12HR PO 02/07/25 08:00 02/13/25 11:14 6.25 MG Empaglifozin 10 mg DAILY PO 02/07/25 10:00 02/13/25 11:16 10 MG Lisinopril 10 mg DAILY PO 02/08/25 10:00 02/13/25 11:15 10 MG Diagnostic Test (Pha) 1 strip Q6HR 02/08/25 18:00 02/13/25 11:29 1 STRIP Insulin Human Lispro Q6HR SC 02/08/25 18:00 02/12/25 17:23 2 UNITS Hydromorphone HCl 0.25 mg Q4HPRN PRN IV 02/09/25 11:00 Sodium Chloride 1,000 ml @ 200 mls/hr Q5H IV 02/10/25 07:00 02/13/25 05:00 200 MLS/HR Allopurinol 100 mg DAILY PO 02/11/25 10:00 02/13/25 11:19 100 MG Vancomycin HCl 0 ml @ 0 mls/hr UD IV 02/11/25 11:45 Vancomycin HCl 100 ml @ 100 mls/hr Q18H IV 02/13/25 10:00 UNV laboratory and microbiology Laboratory Tests 02/13/25 04:57 02/12/25 20:33 Test 02/12/25 20:33 Range/Units Serum Glucose 164 H 74-106 mg/dL Problem List/Assessment/Plan Problem List/Assessment/Plan ASSESSMENT AND PLAN: ID Problem List: \-- Cirrhosis and septic shock secondary to Salmonella bacteremia \-- E. coli aspiration pneumonia \-- Acute kidney injury, now improving \-- Thrombocytopenia (platelets low, now improving) \-- Severe degenerative lumbar disc disease with foraminal stenosis \-- Chronic alcohol dependence \-- Gout \-- Constipation \-- Poor medical follow-up Assessment: This is a 60-year-old male with a history of gout (not on any medications), chronic heavy alcohol use, and no surgical history, who presented with severe back pain and evidence of systemic infection with complicated clinical course. Patient was admitted for possible complicated urinary tract infection/urosepsis/pyelonephritis, acute kidney injury, and alcohol withdrawal. Notable findings include: severe thrombocytopenia on admission (platelets 53), initial lactic acidosis, and persistently elevated white count. Blood cultures grew Salmonella group D (sensitive to ampicillin and trimethoprim- sulfamethoxazole). Sputum culture grew penicillin-sensitive E. coli. Later, daria was found in the lungs; fluconazole was started. Patient required broad- spectrum antibiotics (initially meropenem and vancomycin), now with plans to deescalate as below. Fevers initially resolved, then recurred. Creatinine acutely increased (peak 5.25), now improved to 1.37; hemoglobin stable. Imaging notable for degenerative severe lumbar disc disease, cardiomegaly with left ventricular dysfunction and severe pulmonary hypertension, bilateral mild effusions, hepatomegaly, hepatosteatosis, and inguinal hernias. 01/31: chest x ray shows worsening right , improving left pilor interstitial opacities suggesting shifting pulmonary edema 02/01: patient is getting started on tube feeds and tolerating them and having good urine output through folley cath 02/02: creatinine at 1.03 , liver enzymes are slowly up trending on levofloxacin therapy , will continue to monitor 02/03: tolerating Cpap and awaiting for patient to awaken Plan: - check EKG in 5 days on levoquin therapy - recommending diuresis as tolerated \-- De-escalate antimicrobials: discontinue vancomycin and meropenem and fluconazole; start levofloxacin to complete total 14-day course for Salmonella bacteremia and pneumonia \-- Monitor for recurrent or persistent fevers; if persistent, consider drug fever, catheter-associated thrombosis, or other non-infectious etiology \-- Doppler ultrasound of the right upper and both lower extremities to evaluate for deep vein thrombosis due to swelling \-- If no etiology is found and fevers persist after above measures, consider CT pulmonary angiogram to evaluate for pulmonary embolism \-- Remove hemodialysis line catheter if not currently required \-- Continue aspiration precautions \-- Monitor renal function, platelet count, and hemodynamics \-- Manage constipation as indicated; patient has had several bowel movements since admission \-- Admit for monitoring of alcohol withdrawal and supportive care \-- Continue to evaluate and manage pain related to severe lumbar degenerative disc disease Authorized and Performed by: pastora garza MD Total critical care time: Approximately 76 minutes Due to a high probability of clinically significant, life threatening deterioration, the patient required my highest level of preparedness to intervene emergently and I personally spent this critical care time directly and personally managing the patient. This critical care time included obtaining a history; examining the patient; pulse oximetry; ordering and review of studies; arranging urgent treatment with development of a management plan; evaluation of patient's response to treatment; frequent reassessment; and, discussions with other providers. This critical care time was performed to assess and manage the high probability of imminent, life-threatening deterioration that could result in multi-organ failure. It was exclusive of separately billable procedures and treating other patients and teaching time. Isolation Precautions: Aspiration precautions Dietary Evaluation Review Comments: 1) Initiate Nephro-Haritha @ 1 tb qd 2) If patient remains NPO > 7 days, consider EN/TPN to meet at least 75% of estimated daily needs 3) If GI route is preferred, consider Nepro CarbSteady @ 30 mL/hr goal rate as tolerated. EN regimen will provide 1296 kcals. 58g Pro, and 523 mL free H2O per 24 hrs. Goal rate will meet ~ 92% estimated daily energy needs and ~ 43% estimated daily protein needs. 4) Advance to 60g CCHO renal diet when medically feasible, pending ST approal 5) Refer to outpatient RD/[facility] for weight management 6) Follow-up with cardiology, pulmonology, nephrology, gastroenterology, and hepatology 7) Follow-up with health social work professor r/t polysubstance abuse 8) Continue to monitor I&O, labs, and skin integrity Expected Outcomes/Goals: 1) patient to receive nutrition support within 7 days of NPO status 2) labs and GI symptoms to improve 3) diet to advance 4) f/u in 2-3 days PASTORA GARZA MD Feb 13, 2025 11:43
--- NOTE | 2025-02-13 14:19 | DVHPN2 ---
Progress Note Date Seen: Feb 13, 2025 Has the PT tested + for MRSA If YES, has PT been informed?: No Medical Necessity Reason Pt with a Central, PICC or Fol: Yes The following are medically ne: Central Line (Left non tunneled IJ and tunneled right subclavian), Young Catheter Reason for young catheter: Strict I&O Subjective Changes from previous H/P or p: Changes (The s/p right radial artery exploration repair. Patient with necrotic fingertips of the 2nd through 5th fingers which will require partial amputation. The thumb has a black eschar at the tip which I believe we will be able to scab and slough off.) Objective vital signs Vital Sign Date Time Temp Pulse Resp B/P (MAP) Pulse Ox O2 Delivery O2 Flow Rate FiO2 02/13/25 13:51 77 18 100 02/13/25 13:46 Room Air 0.0 02/13/25 13:46 21 02/13/25 13:00 97.4 114/63 (80) 97.4 Total Intake and Output 02/12/25 02/12/25 02/13/25 15:00 23:00 07:00 Intake Total 954 ml 2777 ml 200 ml Output Total 2053 ml 1600 ml Balance 954 ml 724 ml -1400 ml medications Current Medications Medications Dose Ordered Sig/Natividad Route Start Time Stop Time Status Last Admin Dose Admin Thiamine HCl 100 mg DAILY IV 01/20/25 10:00 02/13/25 11:14 100 MG Folic Acid 1 mg/ Dextrose 50.2 ml @ 200.8 mls/ hr DAILY INJ 01/20/25 10:00 02/13/25 11:17 200.8 MLS/HR Metoclopramide HCl 5 mg Q8HR IV 01/23/25 16:30 02/13/25 06:01 5 MG Enteral Nutritional Formula 1,000 ml 50ML/HR GT 01/26/25 17:00 02/03/25 17:26 1,000 ML Sodium Chloride 10 ml QSHIFT@10,22 IV 01/28/25 22:00 02/13/25 10:00 10 ML Lactulose 30 ml DAILY PRN PO 01/30/25 07:00 01/31/25 21:39 30 ML Pantoprazole Sodium 40 mg DAILY IV 01/30/25 10:00 02/13/25 11:13 40 MG Spironolactone 25 mg DAILY PO 01/31/25 10:00 02/13/25 11:19 25 MG Acetaminophen 650 mg Q6HP PRN PO 01/31/25 07:15 02/10/25 05:44 650 MG Colchicine 0.6 mg DAILY PO 02/06/25 10:00 02/13/25 11:16 0.6 MG Ipratropium [place] 0.5 mg Q4HWA NEB 02/05/25 18:00 02/13/25 13:46 0.5 MG Albuterol 2.5 mg Q4HWA [facility] 02/05/25 18:00 02/13/25 13:46 2.5 MG Methylprednisolone Sodium Succinate 40 mg DAILY IV 02/07/25 10:00 02/13/25 11:13 40 MG Insulin Glargine 13 units QAM SC 02/07/25 07:00 02/13/25 06:00 13 UNITS Dextrose 50 ml UD IV 02/06/25 21:00 Carvedilol 6.25 mg Q12HR PO 02/07/25 08:00 02/13/25 11:14 6.25 MG Empaglifozin 10 mg DAILY PO 02/07/25 10:00 02/13/25 11:16 10 MG Lisinopril 10 mg DAILY PO 02/08/25 10:00 02/13/25 11:15 10 MG Diagnostic Test (Pha) 1 strip Q6HR 02/08/25 18:00 02/13/25 11:29 1 STRIP Insulin Human Lispro Q6HR SC 02/08/25 18:00 02/12/25 17:23 2 UNITS Hydromorphone HCl 0.25 mg Q4HPRN PRN IV 02/09/25 11:00 Sodium Chloride 1,000 ml @ 200 mls/hr Q5H IV 02/10/25 07:00 02/13/25 05:00 200 MLS/HR Allopurinol 100 mg DAILY PO 02/11/25 10:00 02/13/25 11:19 100 MG Vancomycin HCl 0 ml @ 0 mls/hr UD IV 02/11/25 11:45 laboratory and microbiology Laboratory Tests 02/13/25 04:57 02/12/25 20:33 Test 02/12/25 20:33 Range/Units Serum Glucose 164 H 74-106 mg/dL Microbiology Date/Time Source Procedure Growth Status 02/10/25 19:00 Voided Urine Urine Culture - Final Complete 02/10/25 12:40 Blood Blood Culture - Final Staphylococcus epidermidis Complete 01/29/25 11:35 Sputum Gram Stain - Final Complete 01/29/25 11:35 Sputum Respiratory Culture - Final Complete 01/23/25 20:14 Lung - Final Resulted 01/23/25 20:14 Lung - Final Resulted 01/23/25 20:14 Lung - Preliminary Resulted 01/23/25 20:14 Lung - Preliminary Resulted 01/23/25 20:14 Lung - Final See Separate Report... 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 We will require partial amputations of fingers 2 through 5. I discussed this with the patient as well as the spouse they are all in agreement. We will plan on performing this on ThursdayFebruary 15. Plan discussed with: Patient, Spouse Dietary Evaluation Review Comments: 1) Initiate Nephro-Haritha @ 1 tb qd 2) If patient remains NPO > 7 days, consider EN/TPN to meet at least 75% of estimated daily needs 3) If GI route is preferred, consider Nepro CarbSteady @ 30 mL/hr goal rate as tolerated. EN regimen will provide 1296 kcals. 58g Pro, and 523 mL free H2O per 24 hrs. Goal rate will meet ~ 92% estimated daily energy needs and ~ 43% estimated daily protein needs. 4) Advance to 60g CCHO renal diet when medically feasible, pending ST approal 5) Refer to outpatient RD/CDCES for weight management 6) Follow-up with cardiology, pulmonology, nephrology, gastroenterology, and hepatology 7) Follow-up with social media campaign manager r/t polysubstance abuse 8) Continue to monitor I&O, labs, and skin integrity Expected Outcomes/Goals: 1) patient to receive nutrition support within 7 days of NPO status 2) labs and GI symptoms to improve 3) diet to advance 4) f/u in 2-3 days JOSE JUAN MOSES Jr., MD Feb 13, 2025 14:19
[2025-02-13] MEDS: VANCOMYCIN 750MG KIT 100 ML IV ONE (15:38)
--- NOTE | 2025-02-13 16:54 | DVHPNRES ---
Progress Note Date Seen: Feb 13, 2025 Resident Creating Document: SONA HEARD RESDIENT Has the PT tested + for MRSA If YES, has PT been informed?: No Medical Necessity Reason Pt with a Central, PICC or Fol: Yes The following are medically ne: Central Line (Left non tunneled IJ and tunneled right subclavian), Young Catheter Reason for young catheter: Strict I&O Subjective Review of Systems General Appearance: Alert, following command, can speak few words HEENT: Atraumatic, PERRLA, EOMI, Mucous membrane moist/pink Respiratory: Clear to auscultation, Normal air movement Cardiovascular: Regular rate, Normal S1, Normal S2, No murmurs, no chest wall tenderness Abdominal: Normal bowel sounds, Soft, No tenderness, No hepatospenomegaly, No masses Extremities: Bilateral ankle and left wrist swollen, warm and tender. Right hand distal phalanges or black (necrotic) Skin: No rashes, No breakdown, No significant lesion Neuro: Normal gait, Normal speech, Strength at 5/5 X4 ext, Normal tone, Sensation intact, Cranial nerves 3-12 NL, Reflexes 2+ Psych/Mental Status: Mental status NL, Mood NL Objective vital signs Vital Sign Date Time Temp Pulse Resp B/P (MAP) Pulse Ox O2 Delivery O2 Flow Rate FiO2 02/13/25 13:51 77 18 100 02/13/25 13:46 Room Air 0.0 02/13/25 13:46 21 02/13/25 13:00 97.4 114/63 (80) 97.4 Total Intake and Output 02/12/25 02/12/25 02/13/25 15:00 23:00 07:00 Intake Total 954 ml 2777 ml 200 ml Output Total 2053 ml 1600 ml Balance 954 ml 724 ml -1400 ml medications Current Medications Medications Dose Ordered Sig/Natividad Route Start Time Stop Time Status Last Admin Dose Admin Thiamine HCl 100 mg DAILY IV 01/20/25 10:00 02/13/25 11:14 100 MG Folic Acid 1 mg/ Dextrose 50.2 ml @ 200.8 mls/ hr DAILY INJ 01/20/25 10:00 02/13/25 11:17 200.8 MLS/HR Metoclopramide HCl 5 mg Q8HR IV 01/23/25 16:30 02/13/25 15:38 5 MG Enteral Nutritional Formula 1,000 ml 50ML/HR GT 01/26/25 17:00 02/03/25 17:26 1,000 ML Sodium Chloride 10 ml QSHIFT@10,22 IV 01/28/25 22:00 02/13/25 10:00 10 ML Lactulose 30 ml DAILY PRN PO 01/30/25 07:00 01/31/25 21:39 30 ML Pantoprazole Sodium 40 mg DAILY IV 01/30/25 10:00 02/13/25 11:13 40 MG Spironolactone 25 mg DAILY PO 01/31/25 10:00 02/13/25 11:19 25 MG Acetaminophen 650 mg Q6HP PRN PO 01/31/25 07:15 02/10/25 05:44 650 MG Colchicine 0.6 mg DAILY PO 02/06/25 10:00 02/13/25 11:16 0.6 MG Ipratropium [place] 0.5 mg Q4HWA NEB 02/05/25 18:00 02/13/25 13:46 0.5 MG Albuterol 2.5 mg Q4HWA NEB 02/05/25 18:00 02/13/25 13:46 2.5 MG Methylprednisolone Sodium Succinate 40 mg DAILY IV 02/07/25 10:00 02/13/25 11:13 40 MG Insulin Glargine 13 units QAM SC 02/07/25 07:00 02/13/25 06:00 13 UNITS Dextrose 50 ml UD IV 02/06/25 21:00 Carvedilol 6.25 mg Q12HR PO 02/07/25 08:00 02/13/25 11:14 6.25 MG Empaglifozin 10 mg DAILY PO 02/07/25 10:00 02/13/25 11:16 10 MG Lisinopril 10 mg DAILY PO 02/08/25 10:00 02/13/25 11:15 10 MG Diagnostic Test (Pha) 1 strip Q6HR 02/08/25 18:00 02/13/25 11:29 1 STRIP Insulin Human Lispro Q6HR SC 02/08/25 18:00 02/12/25 17:23 2 UNITS Hydromorphone HCl 0.25 mg Q4HPRN PRN IV 02/09/25 11:00 Sodium Chloride 1,000 ml @ 200 mls/hr Q5H IV 02/10/25 07:00 02/13/25 15:00 200 MLS/HR Allopurinol 100 mg DAILY PO 02/11/25 10:00 02/13/25 11:19 100 MG Vancomycin HCl 0 ml @ 0 mls/hr UD IV 02/11/25 11:45 laboratory and microbiology Laboratory Tests 02/13/25 04:57 02/12/25 20:33 Test 02/12/25 20:33 Range/Units Serum Glucose 164 H 74-106 mg/dL Microbiology Date/Time Source Procedure Growth Status 02/10/25 19:00 Voided Urine Urine Culture - Final Complete 02/10/25 12:40 Blood Blood Culture - Final Staphylococcus epidermidis Complete 01/29/25 11:35 Sputum Gram Stain - Final Complete 01/29/25 11:35 Sputum Respiratory Culture - Final Complete 01/23/25 20:14 Lung - Final Resulted 01/23/25 20:14 Lung - Final Resulted 01/23/25 20:14 Lung - Preliminary Resulted 01/23/25 20:14 Lung - Preliminary Resulted 01/23/25 20:14 Lung - Final See Separate Report... Resulted Labs and/or images reviewed: Labs reviewed by me, Image(s) reviewed by me Problem List/Assessment/Plan Problem List/Assessment/Plan This is a 60-year-old male with past medical history of alcohol use disorder, current heavy smoker, gout, dyslipidemia, came to the hospital due to low back pain. On 2nd day of admission, the patient is stabilized, developed AFib and SVT, underwent cardioversion and adenosine was given subsequently, due to respiratory distress and inability to maintain respiratory tract, the patient was sedated, intubated and put on mechanical ventilation. NEURO: Acute metabolic/toxic encephalopathy likely due to sepsis/alcohol use disorder * Sedated, on MV with RASS score -4 * Head CT scan showed no significant intracranial abnormalities CARDIOVASCULAR: ? Cardiogenic shock, likely due to AFib with RVR/SVT Atrial fibrillation with RVR/SVT Acquired coagulopathy ? Acute on chronic Heart failure with reduced ejection fraction NSTEMI, likely type 2 due to above Sinus bradycardia Ruled out Endocarditis * Patient was 2 times reverted to NSR with cardioversion, subsequently put on amiodarone drip for 2 days, discontinued due to regaining sinus rhythm and bradycardia * EKG upon admission showed sinus rhythm with no significant ST or T-wave changes * Subsequent EKGs showed AFib with RVR and SVT, and reverted to normal sinus rhythm by giving amiodarone drip for 2 days * Echo shows, LVEF 45% severe pulmonary hypertension (RVSP 64) * BNP is raised at 450s * CLAUDE on 01/27/2025, normal study PULMONARY: Acute hypoxic respiratory failure, likely due to pneumonia Pneumonia, likely due to Gram-positive/Gram-negative bacteria/viral ? Pulmonary hypertension Possible obstructive sleep apnea Atelectasis * CT scan shows, bilateral small pleural effusion * Chest x-ray shows, closed left costophrenic angle * Bronchoscopy performed on 01/16/2024, had copious amount of mucus on bilateral main bronchus, sample sent for culture * Pulmonology is on the board * Breathing treatment and chest percussion q.4hr GASTROINTESTINAL: ? Upper GI bleeding, likely due to liver cirrhosis/portal hypertension Alcohol use disorder Hepatomegaly and hepatic steatosis, likely due to alcohol use disorder Splenomegaly, likely due to above Bilateral indirect inguinal hernia, fatigue content extending to the scrotum Diverticulosis * GI is on the board, recommended medical management at the moment * Thiamine and folic acid GENITOURINARY: JOSE on possible CKD, likely VMN (baseline record not available) * Nephrology on the board, performed 4 session of HD, last session on 01/26/2025, creatinine normalized * Consulted Radiology for tunneled catheter removal, removed catheter ENDOCRINE: Newly diagnosed Diabetes, with hyperglycemia Dyslipidemia Thyroid nodule Obesity * HBA1c is 6.5 * Lispro subcutaneous q.6 hours METABOLIC: Gout Hypokalemia Hypocalcemia Hypertriglyceridemia, likely due to propofol side effects Mild hypernatremia HEME: Severe thrombocytopenia, likely due to liver cirrhosis, normalized Mild anemia, normocytic normochromic * Status post transfusion of 1 unit RBC, 1 units FFP, and 1 unit platelet INFECTIOUS DISEASE: ? Septic shock likely due to pneumonia/bacteremia Recurrent spikes of fever Possible drug fever * Blood culture shows Gram-negative right, Salmonella sensitive to ampicillin * Sputum culture shows E coli, sensitive to ampicillin * Vancomycin and cefepime was given for 5 days, DC on 01/15/2025 * Ampicillin IV started on 01/15/2025, due to episodes of fever, ampicillin discontinued on 01/24/2025 * Over 01/16/24, the patient had multiple episodes of fever, patient is started back on vancomycin and meropenem on 01/24/2025, stopped vancomycin on 01/30/25 (given for 6 days) for possible drug fever * Acetaminophen p.r.n. for fever * Consulted infectious disease for fever of unknown origin, recommended to discontinue other antibiotic and give levofloxacin for 2 weeks * Blood culture shows MRSA, vancomycin and order blood culture DERMATOLOGY: Right hand acute PAD/acute limb ischemia possibly due to arterial thrombosis, leading to possible right hand fingertip necrosis Right hand distal phalanges riding, likely due to radial artery thrombosis * Doppler ultrasound shows no significant arterial disease * Vascular surgeon consulted, performed right radial artery exploration with subsequent performed thrombectomy of the proximal radial artery, due to necrosis of distal phalanges of right hand, planned for amputation on Thursday02/15/2025 MUSCULOSKELETAL: Chronic back pain, due to severe lumbar disc disease Gout flare-up Uric acid is bed at 12.8 * Ketorolac 30 mg once * Methylprednisolone 40 mg daily * Colchicine and allopurinol DIET: Puree diet DVT prophylax: Lovenox therapeutic dose started on 01/30/25 GI prophylaxis: Protonix 40 mg daily Bowel regimen: Lactulose 30 mg daily PRN Code status: Code status discussed with the family (son), full code LINES/DRAINS/ACCESS: * ETT: Intubated on 01/19/2025 and extubated on 02/05/2025 * Right subclavian tunneled catheter, placed on 01/26/2020, removed on 02/08/2025 * Drips: All drips discontinued * Young catheter: Exchanged on 01/30/2025 DISPOSITION: Downgraded to med/surge with sitter Critical care time spent more than 30 minutes. Case discussed with Dr. Chadwick Plan discussed with: Patient, Spouse, Other (RN) My Orders My Orders Orders - SONA HEARD RESDIENT Procedure Category Date Status Time Blood Culture TERE 02/13/25 In Process 13:34 Dietary Evaluation Review Comments: 1) Initiate Nephro-Haritha @ 1 tb qd 2) If patient remains NPO > 7 days, consider EN/TPN to meet at least 75% of estimated daily needs 3) If GI route is preferred, consider Nepro CarbSteady @ 30 mL/hr goal rate as tolerated. EN regimen will provide 1296 kcals. 58g Pro, and 523 mL free H2O per 24 hrs. Goal rate will meet ~ 92% estimated daily energy needs and ~ 43% estimated daily protein needs. 4) Advance to 60g CCHO renal diet when medically feasible, pending ST approal 5) Refer to outpatient RD/CDCES for weight management 6) Follow-up with cardiology, pulmonology, nephrology, gastroenterology, and hepatology 7) Follow-up with director of social media marketing r/t polysubstance abuse 8) Continue to monitor I&O, labs, and skin integrity Expected Outcomes/Goals: 1) patient to receive nutrition support within 7 days of NPO status 2) labs and GI symptoms to improve 3) diet to advance 4) f/u in 2-3 days SONA HEARD RESDIENT Feb 13, 2025 16:54
--- NOTE | 2025-02-13 18:32 | DVHPN2 ---
Progress Note - Dictate Date Seen: Feb 13, 2025 Has the PT tested + for MRSA If YES, has PT been informed?: No Medical Necessity Reason Pt with a Central, PICC or Fol: Yes The following are medically ne: Central Line (Left non tunneled IJ and tunneled right subclavian), Young Catheter Reason for young catheter: Strict I&O vital signs Vital Sign Date Time Temp Pulse Resp B/P (MAP) Pulse Ox O2 Delivery O2 Flow Rate FiO2 02/13/25 17:00 98.3 80 17 127/81 (96) 95 98.3 02/13/25 13:46 Room Air 0.0 02/13/25 13:46 21 Total Intake and Output 02/12/25 02/12/25 02/13/25 15:00 23:00 07:00 Intake Total 954 ml 2777 ml 200 ml Output Total 2053 ml 1600 ml Balance 954 ml 724 ml -1400 ml medications Current Medications Medications Dose Ordered Sig/Natividad Route Start Time Stop Time Status Last Admin Dose Admin Thiamine HCl 100 mg DAILY IV 01/20/25 10:00 02/13/25 11:14 100 MG Folic Acid 1 mg/ Dextrose 50.2 ml @ 200.8 mls/ hr DAILY INJ 01/20/25 10:00 02/13/25 11:17 200.8 MLS/HR Metoclopramide HCl 5 mg Q8HR IV 01/23/25 16:30 02/13/25 15:38 5 MG Enteral Nutritional Formula 1,000 ml 50ML/HR GT 01/26/25 17:00 02/03/25 17:26 1,000 ML Sodium Chloride 10 ml QSHIFT@10,22 IV 01/28/25 22:00 02/13/25 10:00 10 ML Lactulose 30 ml DAILY PRN PO 01/30/25 07:00 01/31/25 21:39 30 ML Pantoprazole Sodium 40 mg DAILY IV 01/30/25 10:00 02/13/25 11:13 40 MG Spironolactone 25 mg DAILY PO 01/31/25 10:00 02/13/25 11:19 25 MG Acetaminophen 650 mg Q6HP PRN PO 01/31/25 07:15 02/10/25 05:44 650 MG Colchicine 0.6 mg DAILY PO 02/06/25 10:00 02/13/25 11:16 0.6 MG Ipratropium [place] 0.5 mg Q4HWA NEB 02/05/25 18:00 02/13/25 13:46 0.5 MG Albuterol 2.5 mg Q4HWA NEB 02/05/25 18:00 02/13/25 13:46 2.5 MG Methylprednisolone Sodium Succinate 40 mg DAILY IV 02/07/25 10:00 02/13/25 11:13 40 MG Insulin Glargine 13 units QAM SC 02/07/25 07:00 02/13/25 06:00 13 UNITS Dextrose 50 ml UD IV 02/06/25 21:00 Carvedilol 6.25 mg Q12HR PO 02/07/25 08:00 02/13/25 11:14 6.25 MG Empaglifozin 10 mg DAILY PO 02/07/25 10:00 02/13/25 11:16 10 MG Lisinopril 10 mg DAILY PO 02/08/25 10:00 02/13/25 11:15 10 MG Diagnostic Test (Pha) 1 strip Q6HR 02/08/25 18:00 02/13/25 18:18 1 STRIP Insulin Human Lispro Q6HR SC 02/08/25 18:00 02/12/25 17:23 2 UNITS Hydromorphone HCl 0.25 mg Q4HPRN PRN IV 02/09/25 11:00 Sodium Chloride 1,000 ml @ 200 mls/hr Q5H IV 02/10/25 07:00 02/13/25 15:00 200 MLS/HR Allopurinol 100 mg DAILY PO 02/11/25 10:00 02/13/25 11:19 100 MG Vancomycin HCl 0 ml @ 0 mls/hr UD IV 02/11/25 11:45 Vancomycin HCl 100 ml @ 100 mls/hr Q8H IV 02/13/25 23:00 laboratory and microbiology Laboratory Tests 02/13/25 04:57 02/12/25 20:33 Test 02/12/25 20:33 Range/Units Serum Glucose 164 H 74-106 mg/dL Assessment/Plan Impression Acute hypoxic respiratory failure Hx of alcohol abuse Sepsis ESRD, on hemodialysis Obesity Events: S/p extubation right hand noted dry gangrene of fingers f/up with vascular sx, awaiting procedure Labs and imaging reviewed ABG reviewed Management Supplemental oxygen Titrate to maintain sats 90% or above Incentive spirometry Aspiration precautions swallow eval Continue antibiotics. Monitor hemoglobin HD per Nephrology Monitor renal function Monitor electrolytes. Supplement as necessary. Monitor ins and outs. Maintain euvolemia PT dvt proph Dietary Evaluation Review Comments: 1) Initiate Nephro-Haritha @ 1 tb qd 2) If patient remains NPO > 7 days, consider EN/TPN to meet at least 75% of estimated daily needs 3) If GI route is preferred, consider Nepro CarbSteady @ 30 mL/hr goal rate as tolerated. EN regimen will provide 1296 kcals. 58g Pro, and 523 mL free H2O per 24 hrs. Goal rate will meet ~ 92% estimated daily energy needs and ~ 43% estimated daily protein needs. 4) Advance to 60g CCHO renal diet when medically feasible, pending ST approal 5) Refer to outpatient RD/[facility] for weight management 6) Follow-up with cardiology, pulmonology, nephrology, gastroenterology, and hepatology 7) Follow-up with social work program coordinator r/t polysubstance abuse 8) Continue to monitor I&O, labs, and skin integrity Expected Outcomes/Goals: 1) patient to receive nutrition support within 7 days of NPO status 2) labs and GI symptoms to improve 3) diet to advance 4) f/u in 2-3 days Plan discussed with: Patient JONNATHAN FELICIANO MD Feb 13, 2025 18:31
--- NOTE | 2025-02-13 19:12 | DVHPN2 ---
Progress Note Date Seen: Feb 13, 2025 Resident Creating Document: NATALY BURNETTE RESIDENT Has the PT tested + for MRSA If YES, has PT been informed?: No Medical Necessity Reason Pt with a Central, PICC or Fol: Yes The following are medically ne: Central Line (Left non tunneled IJ and tunneled right subclavian), Young Catheter Reason for young catheter: Strict I&O Subjective Review of Systems The patient reports no nausea, vomiting or abdominal pain today. He is tolerating oral intake well and had 1 bowel movement nonbloody. He is on pureed diet and is able to take feeds without complication. No melena, hematochezia or hematemesis reported. Blood culture remains positive for staph epidermidis. Currently receiving IV antibiotics as per ID recommendation. Currently on IV methylprednisolone 40 mg. Consider steroid taper. Hemoglobin is trending upward from prior transfusion today 9.1 yesterday 8.7 day before yesterday 6.8. WBC count remain elevated at 22.3 from 18.9. Most likely due to steroid use or underlying infection Low LFTs are downtrending, total bilirubin normalized Objective vital signs Vital Sign Date Time Temp Pulse Resp B/P (MAP) Pulse Ox O2 Delivery O2 Flow Rate FiO2 02/13/25 19:04 83 18 99 02/13/25 18:56 Room Air* 0 21 02/13/25 17:00 98.3 127/81 (96) 98.3 Total Intake and Output 02/12/25 02/12/25 02/13/25 15:00 23:00 07:00 Intake Total 954 ml 2777 ml 200 ml Output Total 2053 ml 1600 ml Balance 954 ml 724 ml -1400 ml medications Current Medications Medications Dose Ordered Sig/Natividad Route Start Time Stop Time Status Last Admin Dose Admin Thiamine HCl 100 mg DAILY IV 01/20/25 10:00 02/13/25 11:14 100 MG Folic Acid 1 mg/ Dextrose 50.2 ml @ 200.8 mls/ hr DAILY INJ 01/20/25 10:00 02/13/25 11:17 200.8 MLS/HR Metoclopramide HCl 5 mg Q8HR IV 01/23/25 16:30 02/13/25 15:38 5 MG Enteral Nutritional Formula 1,000 ml 50ML/HR GT 01/26/25 17:00 02/03/25 17:26 1,000 ML Sodium Chloride 10 ml QSHIFT@10,22 IV 01/28/25 22:00 02/13/25 10:00 10 ML Lactulose 30 ml DAILY PRN PO 01/30/25 07:00 01/31/25 21:39 30 ML Pantoprazole Sodium 40 mg DAILY IV 01/30/25 10:00 02/13/25 11:13 40 MG Spironolactone 25 mg DAILY PO 01/31/25 10:00 02/13/25 11:19 25 MG Acetaminophen 650 mg Q6HP PRN PO 01/31/25 07:15 02/10/25 05:44 650 MG Colchicine 0.6 mg DAILY PO 02/06/25 10:00 02/13/25 11:16 0.6 MG Ipratropium [facility] 0.5 mg Q4HWA [facility] 02/05/25 18:00 02/13/25 18:56 0.5 MG Albuterol 2.5 mg Q4HWA [facility] 02/05/25 18:00 02/13/25 18:56 2.5 MG Methylprednisolone Sodium Succinate 40 mg DAILY IV 02/07/25 10:00 02/13/25 11:13 40 MG Insulin Glargine 13 units QAM SC 02/07/25 07:00 02/13/25 06:00 13 UNITS Dextrose 50 ml UD IV 02/06/25 21:00 Carvedilol 6.25 mg Q12HR PO 02/07/25 08:00 02/13/25 11:14 6.25 MG Empaglifozin 10 mg DAILY PO 02/07/25 10:00 02/13/25 11:16 10 MG Lisinopril 10 mg DAILY PO 02/08/25 10:00 02/13/25 11:15 10 MG Diagnostic Test (Pha) 1 strip Q6HR 02/08/25 18:00 02/13/25 18:18 1 STRIP Insulin Human Lispro Q6HR SC 02/08/25 18:00 02/12/25 17:23 2 UNITS Hydromorphone HCl 0.25 mg Q4HPRN PRN IV 02/09/25 11:00 Sodium Chloride 1,000 ml @ 200 mls/hr Q5H IV 02/10/25 07:00 02/13/25 15:00 200 MLS/HR Allopurinol 100 mg DAILY PO 02/11/25 10:00 02/13/25 11:19 100 MG Vancomycin HCl 0 ml @ 0 mls/hr UD IV 02/11/25 11:45 Vancomycin HCl 100 ml @ 100 mls/hr Q8H IV 02/13/25 23:00 Examination General: Extubated, awake afebrile, mucosae are moist Cardiovascular: Normal S1 and S2, distant heart sound Respiratory: Mechanically assisted ventilation, Clear lung sounds on auscultation Abdomen: Soft, nontender, no organomegaly, normal bowel sounds laboratory and microbiology Laboratory Tests 02/13/25 04:57 02/12/25 20:33 Test 02/12/25 20:33 Range/Units Serum Glucose 164 H 74-106 mg/dL Microbiology Date/Time Source Procedure Growth Status 02/10/25 19:00 Voided Urine Urine Culture - Final Complete 02/10/25 12:40 Blood Blood Culture - Final Staphylococcus epidermidis Complete 01/29/25 11:35 Sputum Gram Stain - Final Complete 01/29/25 11:35 Sputum Respiratory Culture - Final Complete 01/23/25 20:14 Lung - Final Resulted 01/23/25 20:14 Lung - Final Resulted 01/23/25 20:14 Lung - Preliminary Resulted 01/23/25 20:14 Lung - Preliminary Resulted 01/23/25 20:14 Lung - Final See Separate Report... Resulted Problem List/Assessment/Plan Problem List/Assessment/Plan Assessment 1. Upper GI bleeding resolved/stable * No new bleeding; NG aspirate clear; H/H stable. 2. Alcoholic cirrhosis with portal hypertension, chronic liver disease * MELD remains high; LFTs elevated; continue monitoring. 2.Sepsis associated hepatic dysfunction 3. Critical illness with gastroparesis improving with prokinetic therapy. 4. Constipation persistent despite regimen, possibly opioid/sedation related. 5. Sepsis with WBC spike on antibiotics; respiratory culture positive for Lelo (likely colonization vs. infection). Plan GI System Gastrointestinal / Nutrition Gastrointestinal / Hepatic: * Continue to monitor hemoglobin and signs of bleeding. Transfuse if hemoglobin less than 7.0. Continue to monitor stool for occult blood. * Continue oral diet as tolerated; high-protein, low-sodium nutrition. * Taper steroids per primary team * Monitor LFTs and coagulation profile daily while inpatient. * Outpatient EGD and colonoscopy to assess for portal hypertensive changes, varices, and CRC screening. Nutrition: * Continue TPN taper with goal of full oral nutrition prior to discharge. * Dietitian to follow for caloric/protein goals. Thrombosis / Coagulation: * Consider IVC filter placement for DVT given high bleeding risk. * Avoid anticoagulation until bleeding risk profile changes. Prophylaxis: * Continue PPI for stress ulcer prophylaxis. * Maintain aspiration precautions. Continue daily bowel monitoring, maintain soft stool consistency. The patient will require EGD and colonoscopy on outpatient basis and GI consult to be arranged after discharge for variceal screening, mucosal evaluation and colorectal cancer screening once the patient is stable for discharge Case discussed in detail with the attending physician, including the clinical presentation, diagnostic workup, and comprehensive management plan. Plan discussed with: Patient Dietary Evaluation Review Comments: 1) Initiate Nephro-Haritha @ 1 tb qd 2) If patient remains NPO > 7 days, consider EN/TPN to meet at least 75% of estimated daily needs 3) If GI route is preferred, consider Nepro CarbSteady @ 30 mL/hr goal rate as tolerated. EN regimen will provide 1296 kcals. 58g Pro, and 523 mL free H2O per 24 hrs. Goal rate will meet ~ 92% estimated daily energy needs and ~ 43% estimated daily protein needs. 4) Advance to 60g CCHO renal diet when medically feasible, pending ST approal 5) Refer to outpatient RD/CDCES for weight management 6) Follow-up with cardiology, pulmonology, nephrology, gastroenterology, and hepatology 7) Follow-up with social service coordinator r/t polysubstance abuse 8) Continue to monitor I&O, labs, and skin integrity Expected Outcomes/Goals: 1) patient to receive nutrition support within 7 days of NPO status 2) labs and GI symptoms to improve 3) diet to advance 4) f/u in 2-3 days NATALY BURNETTE RESIDENT Feb 13, 2025 19:12
--- NOTE | 2025-02-13 20:36 | DVHPN2 ---
Consult Progress Note Date Seen: Feb 11, 2025 Objective vital signs Vital Sign Date Time Temp Pulse Resp B/P (MAP) Pulse Ox O2 Delivery O2 Flow Rate FiO2 02/13/25 19:04 83 18 99 02/13/25 18:56 Room Air* 0 21 02/13/25 17:00 98.3 127/81 (96) 98.3 Total Intake and Output 02/12/25 02/12/25 02/13/25 15:00 23:00 07:00 Intake Total 954 ml 2777 ml 200 ml Output Total 2053 ml 1600 ml Balance 954 ml 724 ml -1400 ml medications Current Medications Medications Dose Ordered Sig/Natividad Route Start Time Stop Time Status Last Admin Dose Admin Thiamine HCl 100 mg DAILY IV 01/20/25 10:00 02/13/25 11:14 100 MG Folic Acid 1 mg/ Dextrose 50.2 ml @ 200.8 mls/ hr DAILY INJ 01/20/25 10:00 02/13/25 11:17 200.8 MLS/HR Metoclopramide HCl 5 mg Q8HR IV 01/23/25 16:30 02/13/25 15:38 5 MG Enteral Nutritional Formula 1,000 ml 50ML/HR GT 01/26/25 17:00 02/03/25 17:26 1,000 ML Sodium Chloride 10 ml QSHIFT@10,22 IV 01/28/25 22:00 02/13/25 10:00 10 ML Lactulose 30 ml DAILY PRN PO 01/30/25 07:00 01/31/25 21:39 30 ML Pantoprazole Sodium 40 mg DAILY IV 01/30/25 10:00 02/13/25 11:13 40 MG Spironolactone 25 mg DAILY PO 01/31/25 10:00 02/13/25 11:19 25 MG Acetaminophen 650 mg Q6HP PRN PO 01/31/25 07:15 02/10/25 05:44 650 MG Colchicine 0.6 mg DAILY PO 02/06/25 10:00 02/13/25 11:16 0.6 MG Ipratropium [place] 0.5 mg Q4HWA NEB 02/05/25 18:00 02/13/25 18:56 0.5 MG Albuterol 2.5 mg Q4HWA NEB 02/05/25 18:00 02/13/25 18:56 2.5 MG Methylprednisolone Sodium Succinate 40 mg DAILY IV 02/07/25 10:00 02/13/25 11:13 40 MG Insulin Glargine 13 units QAM SC 02/07/25 07:00 02/13/25 06:00 13 UNITS Dextrose 50 ml UD IV 02/06/25 21:00 Carvedilol 6.25 mg Q12HR PO 02/07/25 08:00 02/13/25 11:14 6.25 MG Empaglifozin 10 mg DAILY PO 02/07/25 10:00 02/13/25 11:16 10 MG Lisinopril 10 mg DAILY PO 02/08/25 10:00 02/13/25 11:15 10 MG Diagnostic Test (Pha) 1 strip Q6HR 02/08/25 18:00 02/13/25 18:18 1 STRIP Insulin Human Lispro Q6HR SC 02/08/25 18:00 02/12/25 17:23 2 UNITS Hydromorphone HCl 0.25 mg Q4HPRN PRN IV 02/09/25 11:00 Sodium Chloride 1,000 ml @ 200 mls/hr Q5H IV 02/10/25 07:00 02/13/25 15:00 200 MLS/HR Allopurinol 100 mg DAILY PO 02/11/25 10:00 02/13/25 11:19 100 MG Vancomycin HCl 0 ml @ 0 mls/hr UD IV 02/11/25 11:45 Vancomycin HCl 100 ml @ 100 mls/hr Q8H IV 02/13/25 23:00 laboratory and microbiology Laboratory Tests 02/13/25 04:57 02/12/25 20:33 Test 02/12/25 20:33 Range/Units Serum Glucose 164 H 74-106 mg/dL Problem List/Assessment/Plan Problem List/Assessment/Plan ASSESSMENT AND PLAN: ID Problem List: \-- Cirrhosis and septic shock secondary to Salmonella bacteremia \-- E. coli aspiration pneumonia \-- Acute kidney injury, now improving \-- Thrombocytopenia (platelets low, now improving) \-- Severe degenerative lumbar disc disease with foraminal stenosis \-- Chronic alcohol dependence \-- Gout \-- Constipation \-- Poor medical follow-up Assessment: This is a 60-year-old male with a history of gout (not on any medications), chronic heavy alcohol use, and no surgical history, who presented with severe back pain and evidence of systemic infection with complicated clinical course. Patient was admitted for possible complicated urinary tract infection/urosepsis/pyelonephritis, acute kidney injury, and alcohol withdrawal. Notable findings include: severe thrombocytopenia on admission (platelets 53), initial lactic acidosis, and persistently elevated white count. Blood cultures grew Salmonella group D (sensitive to ampicillin and trimethoprim- sulfamethoxazole). Sputum culture grew penicillin-sensitive E. coli. Later, daria was found in the lungs; fluconazole was started. Patient required broad- spectrum antibiotics (initially meropenem and vancomycin), now with plans to deescalate as below. Fevers initially resolved, then recurred. Creatinine acutely increased (peak 5.25), now improved to 1.37; hemoglobin stable. Imaging notable for degenerative severe lumbar disc disease, cardiomegaly with left ventricular dysfunction and severe pulmonary hypertension, bilateral mild effusions, hepatomegaly, hepatosteatosis, and inguinal hernias. 01/31: chest x ray shows worsening right , improving left pilor interstitial opacities suggesting shifting pulmonary edema 02/01: patient is getting started on tube feeds and tolerating them and having good urine output through folley cath 02/02: creatinine at 1.03 , liver enzymes are slowly up trending on levofloxacin therapy , will continue to monitor 02/03: tolerating Cpap and awaiting for patient to awaken Plan: - check EKG in 5 days on levoquin therapy - recommending diuresis as tolerated \-- De-escalate antimicrobials: discontinue vancomycin and meropenem and fluconazole; start levofloxacin to complete total 14-day course for Salmonella bacteremia and pneumonia \-- Monitor for recurrent or persistent fevers; if persistent, consider drug fever, catheter-associated thrombosis, or other non-infectious etiology \-- Doppler ultrasound of the right upper and both lower extremities to evaluate for deep vein thrombosis due to swelling \-- If no etiology is found and fevers persist after above measures, consider CT pulmonary angiogram to evaluate for pulmonary embolism \-- Remove hemodialysis line catheter if not currently required \-- Continue aspiration precautions \-- Monitor renal function, platelet count, and hemodynamics \-- Manage constipation as indicated; patient has had several bowel movements since admission \-- Admit for monitoring of alcohol withdrawal and supportive care \-- Continue to evaluate and manage pain related to severe lumbar degenerative disc disease Authorized and Performed by: pastora garza MD Total critical care time: Approximately 76 minutes Due to a high probability of clinically significant, life threatening deterioration, the patient required my highest level of preparedness to intervene emergently and I personally spent this critical care time directly and personally managing the patient. This critical care time included obtaining a history; examining the patient; pulse oximetry; ordering and review of studies; arranging urgent treatment with development of a management plan; evaluation of patient's response to treatment; frequent reassessment; and, discussions with other providers. This critical care time was performed to assess and manage the high probability of imminent, life-threatening deterioration that could result in multi-organ failure. It was exclusive of separately billable procedures and treating other patients and teaching time. Isolation Precautions: Aspiration precautions Dietary Evaluation Review Comments: 1) Initiate Nephro-Haritha @ 1 tb qd 2) If patient remains NPO > 7 days, consider EN/TPN to meet at least 75% of estimated daily needs 3) If GI route is preferred, consider Nepro CarbSteady @ 30 mL/hr goal rate as tolerated. EN regimen will provide 1296 kcals. 58g Pro, and 523 mL free H2O per 24 hrs. Goal rate will meet ~ 92% estimated daily energy needs and ~ 43% estimated daily protein needs. 4) Advance to 60g CCHO renal diet when medically feasible, pending ST approal 5) Refer to outpatient RD/CDCES for weight management 6) Follow-up with cardiology, pulmonology, nephrology, gastroenterology, and hepatology 7) Follow-up with outreach and education social worker r/t polysubstance abuse 8) Continue to monitor I&O, labs, and skin integrity Expected Outcomes/Goals: 1) patient to receive nutrition support within 7 days of NPO status 2) labs and GI symptoms to improve 3) diet to advance 4) f/u in 2-3 days PASTORA GARZA MD Feb 13, 2025 20:36
--- NOTE | 2025-02-13 20:38 | DVHPN2 ---
Consult Progress Note Date Seen: Feb 13, 2025 Subjective Patient reports: Feels better (persistent leukocytosis, loose stools, remains on methyl pred) Objective vital signs Vital Sign Date Time Temp Pulse Resp B/P (MAP) Pulse Ox O2 Delivery O2 Flow Rate FiO2 02/13/25 19:04 83 18 99 02/13/25 18:56 Room Air* 0 21 02/13/25 17:00 98.3 127/81 (96) 98.3 Total Intake and Output 02/12/25 02/12/25 02/13/25 15:00 23:00 07:00 Intake Total 954 ml 2777 ml 200 ml Output Total 2053 ml 1600 ml Balance 954 ml 724 ml -1400 ml medications Current Medications Medications Dose Ordered Sig/Natividad Route Start Time Stop Time Status Last Admin Dose Admin Thiamine HCl 100 mg DAILY IV 01/20/25 10:00 02/13/25 11:14 100 MG Folic Acid 1 mg/ Dextrose 50.2 ml @ 200.8 mls/ hr DAILY INJ 01/20/25 10:00 02/13/25 11:17 200.8 MLS/HR Metoclopramide HCl 5 mg Q8HR IV 01/23/25 16:30 02/13/25 15:38 5 MG Enteral Nutritional Formula 1,000 ml 50ML/HR GT 01/26/25 17:00 02/03/25 17:26 1,000 ML Sodium Chloride 10 ml QSHIFT@10,22 IV 01/28/25 22:00 02/13/25 10:00 10 ML Lactulose 30 ml DAILY PRN PO 01/30/25 07:00 01/31/25 21:39 30 ML Pantoprazole Sodium 40 mg DAILY IV 01/30/25 10:00 02/13/25 11:13 40 MG Spironolactone 25 mg DAILY PO 01/31/25 10:00 02/13/25 11:19 25 MG Acetaminophen 650 mg Q6HP PRN PO 01/31/25 07:15 02/10/25 05:44 650 MG Colchicine 0.6 mg DAILY PO 02/06/25 10:00 02/13/25 11:16 0.6 MG Ipratropium [place] 0.5 mg Q4HWA NEB 02/05/25 18:00 02/13/25 18:56 0.5 MG Albuterol 2.5 mg Q4HWA NEB 02/05/25 18:00 02/13/25 18:56 2.5 MG Methylprednisolone Sodium Succinate 40 mg DAILY IV 02/07/25 10:00 02/13/25 11:13 40 MG Insulin Glargine 13 units QAM SC 02/07/25 07:00 02/13/25 06:00 13 UNITS Dextrose 50 ml UD IV 02/06/25 21:00 Carvedilol 6.25 mg Q12HR PO 02/07/25 08:00 02/13/25 11:14 6.25 MG Empaglifozin 10 mg DAILY PO 02/07/25 10:00 02/13/25 11:16 10 MG Lisinopril 10 mg DAILY PO 02/08/25 10:00 02/13/25 11:15 10 MG Diagnostic Test (Pha) 1 strip Q6HR 02/08/25 18:00 02/13/25 18:18 1 STRIP Insulin Human Lispro Q6HR SC 02/08/25 18:00 02/12/25 17:23 2 UNITS Hydromorphone HCl 0.25 mg Q4HPRN PRN IV 02/09/25 11:00 Sodium Chloride 1,000 ml @ 200 mls/hr Q5H IV 02/10/25 07:00 02/13/25 15:00 200 MLS/HR Allopurinol 100 mg DAILY PO 02/11/25 10:00 02/13/25 11:19 100 MG Vancomycin HCl 0 ml @ 0 mls/hr UD IV 02/11/25 11:45 Vancomycin HCl 100 ml @ 100 mls/hr Q8H IV 02/13/25 23:00 laboratory and microbiology Laboratory Tests 02/13/25 04:57 02/12/25 20:33 Test 02/12/25 20:33 Range/Units Serum Glucose 164 H 74-106 mg/dL Problem List/Assessment/Plan Problem List/Assessment/Plan ASSESSMENT AND PLAN: ID Problem List: \-- Cirrhosis and septic shock secondary to Salmonella bacteremia \-- E. coli aspiration pneumonia \-- Acute kidney injury, now improving \-- Thrombocytopenia (platelets low, now improving) \-- Severe degenerative lumbar disc disease with foraminal stenosis \-- Chronic alcohol dependence \-- Gout \-- Constipation \-- Poor medical follow-up Assessment: This is a 60-year-old male with a history of gout (not on any medications), chronic heavy alcohol use, and no surgical history, who presented with severe back pain and evidence of systemic infection with complicated clinical course. Patient was admitted for possible complicated urinary tract infection/urosepsis/pyelonephritis, acute kidney injury, and alcohol withdrawal. Notable findings include: severe thrombocytopenia on admission (platelets 53), initial lactic acidosis, and persistently elevated white count. Blood cultures grew Salmonella group D (sensitive to ampicillin and trimethoprim- sulfamethoxazole). Sputum culture grew penicillin-sensitive E. coli. Later, daria was found in the lungs; fluconazole was started. Patient required broad- spectrum antibiotics (initially meropenem and vancomycin), now with plans to deescalate as below. Fevers initially resolved, then recurred. Creatinine acutely increased (peak 5.25), now improved to 1.37; hemoglobin stable. Imaging notable for degenerative severe lumbar disc disease, cardiomegaly with left ventricular dysfunction and severe pulmonary hypertension, bilateral mild effusions, hepatomegaly, hepatosteatosis, and inguinal hernias. 01/31: chest x ray shows worsening right , improving left pilor interstitial opacities suggesting shifting pulmonary edema 02/01: patient is getting started on tube feeds and tolerating them and having good urine output through folley cath 02/02: creatinine at 1.03 , liver enzymes are slowly up trending on levofloxacin therapy , will continue to monitor 02/03: tolerating Cpap and awaiting for patient to awaken Plan: \--suspect leukocytosis is related to methylpred use wean as tolerated -- stop vancomycin, staph epidermidis in blood is likely skin charanjit contaminant, no further workup required -- if diarrhea persists, consider c-diff testing, low overall suspicion for now. \-- Monitor for recurrent or persistent fevers; if persistent, consider drug fever, catheter-associated thrombosis, or other non-infectious etiology \-- Continue aspiration precautions \-- Monitor renal function, platelet count, and hemodynamics \-- Admit for monitoring of alcohol withdrawal and supportive care \-- Continue to evaluate and manage pain related to severe lumbar degenerative disc disease Dietary Evaluation Review Comments: 1) Initiate Nephro-Haritha @ 1 tb qd 2) If patient remains NPO > 7 days, consider EN/TPN to meet at least 75% of estimated daily needs 3) If GI route is preferred, consider Nepro CarbSteady @ 30 mL/hr goal rate as tolerated. EN regimen will provide 1296 kcals. 58g Pro, and 523 mL free H2O per 24 hrs. Goal rate will meet ~ 92% estimated daily energy needs and ~ 43% estimated daily protein needs. 4) Advance to 60g CCHO renal diet when medically feasible, pending ST approal 5) Refer to outpatient RD/CDCES for weight management 6) Follow-up with cardiology, pulmonology, nephrology, gastroenterology, and hepatology 7) Follow-up with social worker psychiatric r/t polysubstance abuse 8) Continue to monitor I&O, labs, and skin integrity Expected Outcomes/Goals: 1) patient to receive nutrition support within 7 days of NPO status 2) labs and GI symptoms to improve 3) diet to advance 4) f/u in 2-3 days KRISTIN CABALLERO MD Feb 13, 2025 20:38
[2025-02-13] MEDS ORDERED: VANCOMYCIN 750mg/100mL D5W or NS KIT IV SCH (23:00)
[2025-02-14] VITALS (18 sets, daily range): BP systolic 94–125; BP diastolic 60–81; PULSE 68–95; RESP 17–24; TEMP 98–99; O2SAT 93–100
[2025-02-14] MEDS: HYDROmorphone HCL 2 MG/ML VL/or syr IV PRN (01:29)
[2025-02-14 06:44] LABS: Hematocrit 28.1 % (41.0-53.0); Hemoglobin 9.6 g/dL (13.5-17.5); Mean Corpuscular Hemoglobin 28.9 pg (28.0-32.0); Mean Corpuscular Volume 84.7 fL (80.0-100.0)
[2025-02-14 06:56] LABS: Albumin 3.4 g/dL (3.2-4.8); Anion Gap 11 (5-15); BUN/Creatinine Ratio 21.6 (10.0-20.0); Bilirubin, Total 0.7 mg/dL (0.2-1.0); Blood Urea Nitrogen 22 mg/dL (9-23); Potassium 3.9 mmol/L (3.5-5.1); Sodium 138 mmol/L (136-145); Total Protein 5.9 g/dL (5.7-8.2)
[2025-02-14 07:07] LABS: Alanine Aminotransferase 40 U/L (7-40); Alkaline Phosphatase 165 U/L (46-116); Calcium 8.3 mg/dL (8.7-10.4); Carbon Dioxide 20 mmol/L (20-31); Chloride 107 mmol/L (98-107); Glucose 121 mg/dL (74-106)
[2025-02-14 08:28] LABS: Anisocytosis Slight; Giant Platelets Few; Nucleated Red Blood Cells % 2.0 %; Total Cells Counted 100.0 (100)
--- NOTE | 2025-02-14 15:07 | DVHPNRES ---
Progress Note Date Seen: Feb 14, 2025 Resident Creating Document: SONA HEARD VANESSA Has the PT tested + for MRSA If YES, has PT been informed?: No Medical Necessity Reason Pt with a Central, PICC or Fol: Yes The following are medically ne: Central Line (Left non tunneled IJ and tunneled right subclavian), Young Catheter Reason for young catheter: Strict I&O Subjective Review of Systems Seen and examined at bedside. Patient is feeling better since admission but still can not walk. Objective vital signs Vital Sign Date Time Temp Pulse Resp B/P (MAP) Pulse Ox O2 Delivery O2 Flow Rate FiO2 02/14/25 14:18 91 18 99 02/14/25 14:08 Room Air 02/14/25 14:08 0 21 02/14/25 13:00 98.1 94/64 (74) 98.1 Total Intake and Output 02/13/25 02/13/25 02/14/25 15:00 23:00 07:00 Intake Total 237 ml Output Total 2000 ml Balance -1763 ml medications Current Medications Medications Dose Ordered Sig/Natividad Route Start Time Stop Time Status Last Admin Dose Admin Thiamine HCl 100 mg DAILY IV 01/20/25 10:00 02/14/25 10:49 100 MG Folic Acid 1 mg/ Dextrose 50.2 ml @ 200.8 mls/ hr DAILY INJ 01/20/25 10:00 02/14/25 10:00 200.8 MLS/HR Metoclopramide HCl 5 mg Q8HR IV 01/23/25 16:30 02/14/25 05:39 5 MG Enteral Nutritional Formula 1,000 ml 50ML/HR GT 01/26/25 17:00 02/03/25 17:26 1,000 ML Sodium Chloride 10 ml QSHIFT@10,22 IV 01/28/25 22:00 02/14/25 10:00 10 ML Lactulose 30 ml DAILY PRN PO 01/30/25 07:00 01/31/25 21:39 30 ML Pantoprazole Sodium 40 mg DAILY IV 01/30/25 10:00 02/14/25 10:49 40 MG Spironolactone 25 mg DAILY PO 01/31/25 10:00 02/14/25 10:50 25 MG Acetaminophen 650 mg Q6HP PRN PO 01/31/25 07:15 02/10/25 05:44 650 MG Ipratropium [place] 0.5 mg Q4HWA [facility] 02/05/25 18:00 02/14/25 14:08 0.5 MG Albuterol 2.5 mg Q4HWA [facility] 02/05/25 18:00 02/14/25 14:08 2.5 MG Insulin Glargine 13 units QAM SC 02/07/25 07:00 02/14/25 06:38 13 UNITS Dextrose 50 ml UD IV 02/06/25 21:00 Carvedilol 6.25 mg Q12HR PO 02/07/25 08:00 02/14/25 10:50 6.25 MG Empaglifozin 10 mg DAILY PO 02/07/25 10:00 02/14/25 10:50 10 MG Lisinopril 10 mg DAILY PO 02/08/25 10:00 02/14/25 10:51 10 MG Diagnostic Test (Pha) 1 strip Q6HR 02/08/25 18:00 02/14/25 11:35 1 STRIP Insulin Human Lispro Q6HR SC 02/08/25 18:00 02/14/25 06:37 1 UNITS Hydromorphone HCl 0.25 mg Q4HPRN PRN IV 02/09/25 11:00 02/14/25 10:52 0.25 MG Sodium Chloride 1,000 ml @ 200 mls/hr Q5H IV 02/10/25 07:00 02/14/25 11:04 200 MLS/HR Allopurinol 100 mg DAILY PO 02/11/25 10:00 02/14/25 10:50 100 MG Vancomycin HCl 0 ml @ 0 mls/hr UD IV 02/11/25 11:45 Cancel Vancomycin HCl 100 ml @ 100 mls/hr Q8H IV 02/13/25 23:00 Cancel Ketorolac Tromethamine 15 mg Q12HR IV 02/14/25 22:00 02/19/25 21:59 Colchicine 0.6 mg DAILY PO 02/15/25 10:00 Examination General Appearance: Alert, following command, can speak few words HEENT: Atraumatic, PERRLA, EOMI, Mucous membrane moist/pink Respiratory: Clear to auscultation, Normal air movement Cardiovascular: Regular rate, Normal S1, Normal S2, No murmurs, no chest wall tenderness Abdominal: Normal bowel sounds, Soft, No tenderness, No hepatospenomegaly, No masses Extremities: Bilateral ankle and left wrist swollen, warm and tender. Right hand distal phalanges or black (necrotic) Skin: No rashes, No breakdown, No significant lesion Neuro: Normal gait, Normal speech, Strength at 5/5 X4 ext, Normal tone, Sensation intact, Cranial nerves 3-12 NL, Reflexes 2+ Psych/Mental Status: Mental status NL, Mood NL laboratory and microbiology Laboratory Tests 02/14/25 04:44 Test 02/14/25 04:44 Range/Units Serum Glucose 121 H 74-106 mg/dL Microbiology Date/Time Source Procedure Growth Status 02/10/25 19:00 Voided Urine Urine Culture - Final Complete 02/10/25 12:40 Blood Blood Culture - Final Staphylococcus epidermidis Complete 01/29/25 11:35 Sputum Gram Stain - Final Complete 01/29/25 11:35 Sputum Respiratory Culture - Final Complete 01/23/25 20:14 Lung - Final Resulted 01/23/25 20:14 Lung - Final Resulted 01/23/25 20:14 Lung - Preliminary Resulted 01/23/25 20:14 Lung - Preliminary Resulted 01/23/25 20:14 Lung - Final See Separate Report... Resulted Problem List/Assessment/Plan Problem List/Assessment/Plan This is a 60-year-old male with past medical history of alcohol use disorder, current heavy smoker, gout, dyslipidemia, came to the hospital due to low back pain. On 2nd day of admission, the patient is stabilized, developed AFib and SVT, underwent cardioversion and adenosine was given subsequently, due to respiratory distress and inability to maintain respiratory tract, the patient was sedated, intubated and put on mechanical ventilation. NEURO: Acute metabolic/toxic encephalopathy likely due to sepsis/alcohol use disorder * Sedated, on MV with RASS score -4 * Head CT scan showed no significant intracranial abnormalities CARDIOVASCULAR: ? Cardiogenic shock, likely due to AFib with RVR/SVT Atrial fibrillation with RVR/SVT Acquired coagulopathy ? Acute on chronic Heart failure with reduced ejection fraction NSTEMI, likely type 2 due to above Sinus bradycardia Ruled out Endocarditis * Patient was 2 times reverted to NSR with cardioversion, subsequently put on amiodarone drip for 2 days, discontinued due to regaining sinus rhythm and bradycardia * EKG upon admission showed sinus rhythm with no significant ST or T-wave changes * Subsequent EKGs showed AFib with RVR and SVT, and reverted to normal sinus rhythm by giving amiodarone drip for 2 days * Echo shows, LVEF 45% severe pulmonary hypertension (RVSP 64) * BNP is raised at 450s * CLAUDE on 01/27/2025, normal study PULMONARY: Acute hypoxic respiratory failure, likely due to pneumonia Pneumonia, likely due to Gram-positive/Gram-negative bacteria/viral ? Pulmonary hypertension Possible obstructive sleep apnea Atelectasis * CT scan shows, bilateral small pleural effusion * Chest x-ray shows, closed left costophrenic angle * Bronchoscopy performed on 01/16/2024, had copious amount of mucus on bilateral main bronchus, sample sent for culture * Pulmonology is on the board * Breathing treatment and chest percussion q.4hr GASTROINTESTINAL: ? Upper GI bleeding, likely due to liver cirrhosis/portal hypertension Alcohol use disorder Hepatomegaly and hepatic steatosis, likely due to alcohol use disorder Splenomegaly, likely due to above Bilateral indirect inguinal hernia, fatigue content extending to the scrotum Diverticulosis * GI is on the board, recommended medical management at the moment * Thiamine and folic acid GENITOURINARY: JOSE on possible CKD, likely VMN (baseline record not available) * Nephrology on the board, performed 4 session of HD, last session on 01/26/2025, creatinine normalized * Consulted Radiology for tunneled catheter removal, removed catheter ENDOCRINE: Newly diagnosed Diabetes, with hyperglycemia Dyslipidemia Thyroid nodule Obesity * HBA1c is 6.5 * Lispro subcutaneous q.6 hours METABOLIC: Gout Hypokalemia Hypocalcemia Hypertriglyceridemia, likely due to propofol side effects Mild hypernatremia HEME: Severe thrombocytopenia, likely due to liver cirrhosis, normalized Mild anemia, normocytic normochromic * Status post transfusion of 1 unit RBC, 1 units FFP, and 1 unit platelet INFECTIOUS DISEASE: ? Septic shock likely due to pneumonia/bacteremia Recurrent spikes of fever Possible drug fever * Blood culture shows Gram-negative right, Salmonella sensitive to ampicillin * Sputum culture shows E coli, sensitive to ampicillin * Vancomycin and cefepime was given for 5 days, DC on 01/15/2025 * Ampicillin IV started on 01/15/2025, due to episodes of fever, ampicillin discontinued on 01/24/2025 * Over 01/16/24, the patient had multiple episodes of fever, patient is started back on vancomycin and meropenem on 01/24/2025, stopped vancomycin on 01/30/25 (given for 6 days) for possible drug fever * Acetaminophen p.r.n. for fever * Consulted infectious disease for fever of unknown origin, recommended to discontinue other antibiotic and give levofloxacin for 2 weeks * Blood culture shows MRSA, vancomycin and order blood culture DERMATOLOGY: Right hand acute PAD/acute limb ischemia possibly due to arterial thrombosis, leading to possible right hand fingertip necrosis Right hand distal phalanges riding, likely due to radial artery thrombosis * Doppler ultrasound shows no significant arterial disease * Vascular surgeon consulted, performed right radial artery exploration with subsequent performed thrombectomy of the proximal radial artery, due to necrosis of distal phalanges of right hand, planned for amputation on Thursday02/15/2025 MUSCULOSKELETAL: Chronic back pain, due to severe lumbar disc disease Gout flare-up Uric acid is bed at 12.8 * Ketorolac 15 mg b.i.d. * Colchicine and allopurinol DIET: Puree diet DVT prophylax: Lovenox therapeutic dose started on 01/30/25 GI prophylaxis: Protonix 40 mg daily Bowel regimen: Lactulose 30 mg daily PRN Code status: Code status discussed with the family (son), full code LINES/DRAINS/ACCESS: * ETT: Intubated on 01/19/2025 and extubated on 02/05/2025 * Right subclavian tunneled catheter, placed on 01/26/2020, removed on 02/08/2025 * Drips: All drips discontinued * Young catheter: Exchanged on 01/30/2025 DISPOSITION: Downgraded to med/surge with sitter Critical care time spent more than 30 minutes. Case discussed with Dr. Chadwick Plan discussed with: Patient, Other My Orders My Orders Orders - SONA HEARD RESDIVIRI Procedure Category Date Status Time Ketorolac Injection PHA 02/14/25 In Process (Toradol Injection) 22:00 Colchicine (Colcrys) PHA 02/15/25 In Process 10:00 Dietary Evaluation Review Comments: 1) Initiate Nephro-Haritha @ 1 tb qd 2) If patient remains NPO > 7 days, consider EN/TPN to meet at least 75% of estimated daily needs 3) If GI route is preferred, consider Nepro CarbSteady @ 30 mL/hr goal rate as tolerated. EN regimen will provide 1296 kcals. 58g Pro, and 523 mL free H2O per 24 hrs. Goal rate will meet ~ 92% estimated daily energy needs and ~ 43% estimated daily protein needs. 4) Advance to 60g CCHO renal diet when medically feasible, pending ST approal 5) Refer to outpatient RD/CDCES for weight management 6) Follow-up with cardiology, pulmonology, nephrology, gastroenterology, and hepatology 7) Follow-up with social director r/t polysubstance abuse 8) Continue to monitor I&O, labs, and skin integrity Expected Outcomes/Goals: 1) patient to receive nutrition support within 7 days of NPO status 2) labs and GI symptoms to improve 3) diet to advance 4) f/u in 2-3 days Date of Service: Feb 14, 2025 Billing Provider: PINA CHADWICK MD Common Visit Codes: [id number] INP/OBS CARE(HIGH) SONA HEARD RESDIENT Feb 14, 2025 15:07 PINA CHADWICK MD Feb 15, 2025 23:06
[2025-02-14] MEDS: KETOROLAC TROMETH 30 MG/ML 1ML VIAL IV ONE (16:52)
--- NOTE | 2025-02-14 17:11 | DVHPN2 ---
Progress Note Date Seen: Feb 14, 2025 Resident Creating Document: NATALY BURNETTE RESIDENT Has the PT tested + for MRSA If YES, has PT been informed?: No Medical Necessity Reason Pt with a Central, PICC or Fol: Yes The following are medically ne: Central Line (Left non tunneled IJ and tunneled right subclavian), Young Catheter Reason for young catheter: Strict I&O Subjective Review of Systems Today's progress- Hemoglobin stable at 9.6. No evidence of further GI bleeding. LFTs normal, but alkaline phosphatase remains elevated at 165. No bowel movement today, yesterday patient had 1 bowel movement, described as normal without bloody stools. No hematochezia or melena since prior episodes. Patient tolerating oral feeds well with soft diet, no nausea, vomiting, abdominal pain or bloating. Patient is awaiting surgical amputation of right fingers 2-5 tomorrow Objective vital signs Vital Sign Date Time Temp Pulse Resp B/P (MAP) Pulse Ox O2 Delivery O2 Flow Rate FiO2 02/14/25 14:18 91 18 99 02/14/25 14:08 Room Air 02/14/25 14:08 0 21 02/14/25 13:00 98.1 94/64 (74) 98.1 Total Intake and Output 02/13/25 02/13/25 02/14/25 15:00 23:00 07:00 Intake Total 237 ml Output Total 2000 ml Balance -1763 ml medications Current Medications Medications Dose Ordered Sig/Natividad Route Start Time Stop Time Status Last Admin Dose Admin Thiamine HCl 100 mg DAILY IV 01/20/25 10:00 02/14/25 10:49 100 MG Folic Acid 1 mg/ Dextrose 50.2 ml @ 200.8 mls/ hr DAILY INJ 01/20/25 10:00 02/14/25 10:00 200.8 MLS/HR Metoclopramide HCl 5 mg Q8HR IV 01/23/25 16:30 02/14/25 14:00 5 MG Enteral Nutritional Formula 1,000 ml 50ML/HR GT 01/26/25 17:00 02/03/25 17:26 1,000 ML Sodium Chloride 10 ml QSHIFT@10,22 IV 01/28/25 22:00 02/14/25 10:00 10 ML Lactulose 30 ml DAILY PRN PO 01/30/25 07:00 01/31/25 21:39 30 ML Pantoprazole Sodium 40 mg DAILY IV 01/30/25 10:00 02/14/25 10:49 40 MG Spironolactone 25 mg DAILY PO 01/31/25 10:00 02/14/25 10:50 25 MG Acetaminophen 650 mg Q6HP PRN PO 01/31/25 07:15 02/10/25 05:44 650 MG Ipratropium [place] 0.5 mg Q4HWA NEB 02/05/25 18:00 02/14/25 14:08 0.5 MG Albuterol 2.5 mg Q4HWA NEB 02/05/25 18:00 02/14/25 14:08 2.5 MG Insulin Glargine 13 units QAM SC 02/07/25 07:00 02/14/25 06:38 13 UNITS Dextrose 50 ml UD IV 02/06/25 21:00 Carvedilol 6.25 mg Q12HR PO 02/07/25 08:00 02/14/25 10:50 6.25 MG Empaglifozin 10 mg DAILY PO 02/07/25 10:00 02/14/25 10:50 10 MG Lisinopril 10 mg DAILY PO 02/08/25 10:00 02/14/25 10:51 10 MG Diagnostic Test (Pha) 1 strip Q6HR 02/08/25 18:00 02/14/25 11:35 1 STRIP Insulin Human Lispro Q6HR SC 02/08/25 18:00 02/14/25 06:37 1 UNITS Hydromorphone HCl 0.25 mg Q4HPRN PRN IV 02/09/25 11:00 02/14/25 10:52 0.25 MG Sodium Chloride 1,000 ml @ 200 mls/hr Q5H IV 02/10/25 07:00 02/14/25 11:04 200 MLS/HR Allopurinol 100 mg DAILY PO 02/11/25 10:00 02/14/25 10:50 100 MG Vancomycin HCl 0 ml @ 0 mls/hr UD IV 02/11/25 11:45 Cancel Vancomycin HCl 100 ml @ 100 mls/hr Q8H IV 02/13/25 23:00 Cancel Ketorolac Tromethamine 15 mg Q12HR IV 02/14/25 22:00 02/19/25 21:59 Colchicine 0.6 mg DAILY PO 02/15/25 10:00 Examination General: Extubated, awake afebrile, mucosae are moist Abdomen: Soft, nontender, no organomegaly, normal bowel sounds laboratory and microbiology Laboratory Tests 02/14/25 04:44 Test 02/14/25 04:44 Range/Units Serum Glucose 121 H 74-106 mg/dL Microbiology Date/Time Source Procedure Growth Status 02/13/25 14:30 Blood Blood Culture - Preliminary NO GROWTH AFTER 24 HOURS OF INCUBATION. Resulted 02/10/25 19:00 Voided Urine Urine Culture - Final Complete 01/29/25 11:35 Sputum Gram Stain - Final Complete 01/29/25 11:35 Sputum Respiratory Culture - Final Complete 01/23/25 20:14 Lung - Final Resulted 01/23/25 20:14 Lung - Final Resulted 01/23/25 20:14 Lung - Preliminary Resulted 01/23/25 20:14 Lung - Preliminary Resulted 01/23/25 20:14 Lung - Final See Separate Report... Resulted Labs and/or images reviewed: Labs reviewed by me, Image(s) reviewed by me Problem List/Assessment/Plan Problem List/Assessment/Plan Assessment 1. Upper GI bleeding resolved/stable * No new bleeding; NG aspirate clear; H/H stable. 2. Alcoholic cirrhosis with portal hypertension, chronic liver disease * MELD remains high; LFTs elevated; continue monitoring. 2.Sepsis associated hepatic dysfunction 3. Critical illness with gastroparesis improving with prokinetic therapy. 4. Constipation persistent despite regimen, possibly opioid/sedation related. 5. Sepsis with WBC spike on antibiotics; respiratory culture positive for Lelo (likely colonization vs. infection). Plan GI System Gastrointestinal / Nutrition Gastrointestinal / Hepatic: * Continue to monitor hemoglobin and signs of bleeding. Transfuse if hemoglobin less than 7.0. Continue to monitor stool for occult blood. * Continue oral diet as tolerated; high-protein, low-sodium nutrition. * Taper steroids per primary team * Monitor LFTs and coagulation profile daily while inpatient. * Outpatient EGD and colonoscopy to assess for portal hypertensive changes, varices, and CRC screening. Nutrition: * Continue TPN taper with goal of full oral nutrition prior to discharge. * Dietitian to follow for caloric/protein goals. Thrombosis / Coagulation: * Consider IVC filter placement for DVT given high bleeding risk. * Avoid anticoagulation until bleeding risk profile changes. Prophylaxis: * Continue PPI for stress ulcer prophylaxis. * Maintain aspiration precautions. Continue daily bowel monitoring, maintain soft stool consistency. The patient will require EGD and colonoscopy on outpatient basis and GI consult to be arranged after discharge for variceal screening, mucosal evaluation and colorectal cancer screening once the patient is stable for discharge Case discussed in detail with the attending physician, including the clinical presentation, diagnostic workup, and comprehensive management plan. Plan discussed with: Patient Dietary Evaluation Review Comments: 1) Initiate Nephro-Haritha @ 1 tb qd 2) If patient remains NPO > 7 days, consider EN/TPN to meet at least 75% of estimated daily needs 3) If GI route is preferred, consider Nepro CarbSteady @ 30 mL/hr goal rate as tolerated. EN regimen will provide 1296 kcals. 58g Pro, and 523 mL free H2O per 24 hrs. Goal rate will meet ~ 92% estimated daily energy needs and ~ 43% estimated daily protein needs. 4) Advance to 60g CCHO renal diet when medically feasible, pending ST approal 5) Refer to outpatient RD/CDCES for weight management 6) Follow-up with cardiology, pulmonology, nephrology, gastroenterology, and hepatology 7) Follow-up with social secretary r/t polysubstance abuse 8) Continue to monitor I&O, labs, and skin integrity Expected Outcomes/Goals: 1) patient to receive nutrition support within 7 days of NPO status 2) labs and GI symptoms to improve 3) diet to advance 4) f/u in 2-3 days NATALY BURNETTE RESIDENT Feb 14, 2025 17:11
--- NOTE | 2025-02-14 17:49 | DVHPN2 ---
Progress Note - Dictate Date Seen: Feb 14, 2025 Has the PT tested + for MRSA If YES, has PT been informed?: No Medical Necessity Reason Pt with a Central, PICC or Fol: Yes The following are medically ne: Central Line (Left non tunneled IJ and tunneled right subclavian), Young Catheter Reason for young catheter: Strict I&O vital signs Vital Sign Date Time Temp Pulse Resp B/P (MAP) Pulse Ox O2 Delivery O2 Flow Rate FiO2 02/14/25 17:00 98.1 85 17 109/76 (87) 94 98.1 02/14/25 14:08 Room Air 02/14/25 14:08 0 21 Total Intake and Output 02/13/25 02/13/25 02/14/25 15:00 23:00 07:00 Intake Total 237 ml Output Total 2000 ml Balance -1763 ml medications Current Medications Medications Dose Ordered Sig/Natividad Route Start Time Stop Time Status Last Admin Dose Admin Thiamine HCl 100 mg DAILY IV 01/20/25 10:00 02/14/25 10:49 100 MG Folic Acid 1 mg/ Dextrose 50.2 ml @ 200.8 mls/ hr DAILY INJ 01/20/25 10:00 02/14/25 10:00 200.8 MLS/HR Metoclopramide HCl 5 mg Q8HR IV 01/23/25 16:30 02/14/25 14:00 5 MG Enteral Nutritional Formula 1,000 ml 50ML/HR GT 01/26/25 17:00 02/03/25 17:26 1,000 ML Sodium Chloride 10 ml QSHIFT@10,22 IV 01/28/25 22:00 02/14/25 10:00 10 ML Lactulose 30 ml DAILY PRN PO 01/30/25 07:00 01/31/25 21:39 30 ML Pantoprazole Sodium 40 mg DAILY IV 01/30/25 10:00 02/14/25 10:49 40 MG Spironolactone 25 mg DAILY PO 01/31/25 10:00 02/14/25 10:50 25 MG Acetaminophen 650 mg Q6HP PRN PO 01/31/25 07:15 02/10/25 05:44 650 MG Ipratropium [place] 0.5 mg Q4HWA NEB 02/05/25 18:00 02/14/25 14:08 0.5 MG Albuterol 2.5 mg Q4HWA NEB 02/05/25 18:00 02/14/25 14:08 2.5 MG Insulin Glargine 13 units QAM SC 02/07/25 07:00 02/14/25 06:38 13 UNITS Dextrose 50 ml UD IV 02/06/25 21:00 Carvedilol 6.25 mg Q12HR PO 02/07/25 08:00 02/14/25 10:50 6.25 MG Empaglifozin 10 mg DAILY PO 02/07/25 10:00 02/14/25 10:50 10 MG Lisinopril 10 mg DAILY PO 02/08/25 10:00 02/14/25 10:51 10 MG Diagnostic Test (Pha) 1 strip Q6HR 02/08/25 18:00 02/14/25 11:35 1 STRIP Insulin Human Lispro Q6HR SC 02/08/25 18:00 02/14/25 06:37 1 UNITS Hydromorphone HCl 0.25 mg Q4HPRN PRN IV 02/09/25 11:00 02/14/25 10:52 0.25 MG Sodium Chloride 1,000 ml @ 200 mls/hr Q5H IV 02/10/25 07:00 02/14/25 11:04 200 MLS/HR Allopurinol 100 mg DAILY PO 02/11/25 10:00 02/14/25 10:50 100 MG Vancomycin HCl 0 ml @ 0 mls/hr UD IV 02/11/25 11:45 Cancel Vancomycin HCl 100 ml @ 100 mls/hr Q8H IV 02/13/25 23:00 Cancel Ketorolac Tromethamine 15 mg Q12HR IV 02/14/25 22:00 02/19/25 21:59 Colchicine 0.6 mg DAILY PO 02/15/25 10:00 laboratory and microbiology Laboratory Tests 02/14/25 04:44 Test 02/14/25 04:44 Range/Units Serum Glucose 121 H 74-106 mg/dL Assessment/Plan Impression Acute hypoxic respiratory failure Hx of alcohol abuse Sepsis ESRD, on hemodialysis Obesity Events: S/p extubation low oxygen requirements on 2 liters nasal cannula no distress Labs and imaging reviewed ABG reviewed Management Supplemental oxygen Titrate to maintain sats 90% or above Incentive spirometry Aspiration precautions swallow eval Continue antibiotics. Monitor hemoglobin HD per Nephrology Monitor renal function Monitor electrolytes. Supplement as necessary. Monitor ins and outs. Maintain euvolemia PT dvt proph Dietary Evaluation Review Comments: 1) Initiate Nephro-Haritha @ 1 tb qd 2) If patient remains NPO > 7 days, consider EN/TPN to meet at least 75% of estimated daily needs 3) If GI route is preferred, consider Nepro CarbSteady @ 30 mL/hr goal rate as tolerated. EN regimen will provide 1296 kcals. 58g Pro, and 523 mL free H2O per 24 hrs. Goal rate will meet ~ 92% estimated daily energy needs and ~ 43% estimated daily protein needs. 4) Advance to 60g CCHO renal diet when medically feasible, pending ST approal 5) Refer to outpatient RD/CDCES for weight management 6) Follow-up with cardiology, pulmonology, nephrology, gastroenterology, and hepatology 7) Follow-up with social science teacher r/t polysubstance abuse 8) Continue to monitor I&O, labs, and skin integrity Expected Outcomes/Goals: 1) patient to receive nutrition support within 7 days of NPO status 2) labs and GI symptoms to improve 3) diet to advance 4) f/u in 2-3 days Plan discussed with: Patient JONNATHAN FELICIANO MD Feb 14, 2025 17:49
[2025-02-14] MEDS: KETOROLAC TROMETH 30 MG/ML 1ML VIAL IV SCH (22:24)
[2025-02-15] VITALS (17 sets, daily range): BP systolic 96–132; BP diastolic 54–75; PULSE 52–88; RESP 16–22; TEMP 97.1–99.2; O2SAT 90–100
[2025-02-15] MEDS: ceFAZolin 2 GM/D5W50ml 50 ML IV ONE (06:42)
[2025-02-15] MEDS ORDERED: MIDAZOLAM HCL 2MG/2ML 2ml VIAL (1mg/ml) ONE (07:22)
[2025-02-15] MEDS ORDERED: fentaNYL CITRATE 100 MCG/2 ML VL ONE (07:22)
[2025-02-15] MEDS ORDERED: LIDOCAINE 1% INJ PF 5ML AMP ONE (07:22)
[2025-02-15] MEDS ORDERED: PROPOFOL 10 MG/ML 20 ML IV ONE (07:23)
[2025-02-15 07:38] LABS: Hematocrit 25.6 % (41.0-53.0); Hemoglobin 8.7 g/dL (13.5-17.5); Mean Corpuscular Hemoglobin 29.0 pg (28.0-32.0); Mean Corpuscular Volume 84.9 fL (80.0-100.0)
[2025-02-15 07:39] LABS: INR 1.23 (0.9-1.15); Prothrombin Time 12.8 sec (9.3-11.8)
[2025-02-15 07:49] LABS: Alanine Aminotransferase 30 U/L (7-40); Anion Gap 10 (5-15); BUN/Creatinine Ratio 22.2 (10.0-20.0); Bilirubin, Total 0.7 mg/dL (0.2-1.0); Blood Urea Nitrogen 22 mg/dL (9-23); Chloride 107 mmol/L (98-107); Potassium 3.6 mmol/L (3.5-5.1); Sodium 136 mmol/L (136-145)
[2025-02-15] MEDS ORDERED: KETAMINE 50mg/ML 1ml syringe ONE (07:56)
[2025-02-15 07:57] LABS: Albumin 3.1 g/dL (3.2-4.8); Alkaline Phosphatase 142 U/L (46-116); Calcium 8.2 mg/dL (8.7-10.4); Carbon Dioxide 19 mmol/L (20-31); Glucose 111 mg/dL (74-106); Total Protein 5.4 g/dL (5.7-8.2)
[2025-02-15 07:58] LABS: Total Cells Counted 100.0 (100)
[2025-02-15 08:00] LABS: Anisocytosis Slight
--- NOTE | 2025-02-15 08:22 | POSTOP ---
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
--- NOTE | 2025-02-15 08:25 | DVHOP2 ---
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 These include but are not limited to complications of anesthesia, postoperative infection, incomplete relief of symptoms, recurrence of symptoms, damage to blood vessels, nerves and tendons, deep venous thrombosis, pulmonary embolism and possible need for repeat surgery in the future. Estimated Blood Loss: 20 mL Name of Procedure Performed right second, third, fourth and fifth finger amputation PIP joints Procedure Details Procedure Details: Patient was identified in the preop hold area. He was consented in preop by myself. He was brought back to the operating room placed the operating table supine position after adequate induction of anesthesia antibiotics and time-out. The right hand and arm was prepped and draped normal surgical fashion. The distal fingertips of the 2nd 3rd 4th and 5th fingers were all with dry gangrene. Amputations were performed of each finger in a similar fashion at the PIP joint. The circumferential incision was made around each finger. With the 10 blade Bovie cauterization was used for hemostasis control. Of the floor fingers were all amputated at the PIP joint. The specimens were sent off separately. The wounds were then irrigated out and closed with a vertical mattress suture 3- 0 nylon in a similar fashion. A sterile dressing was were applied. Patient tolerated the procedure well. Patient was taken to recovery room in stable condition. Specimen: right second, third, fourth and fifth finger Condition Guarded Disposition Still a Patient VASQUEZ PIRES Jr., MD Feb 15, 2025 08:25
[2025-02-15] MEDS ORDERED: HYDROmorphone HCL 2 MG/ML VL/or syr ONE (09:00)
[2025-02-15] MEDS ORDERED: ONDANSETRON HCL 4 MG/2 ML VIAL IV PRN (09:00)
[2025-02-15] MEDS ORDERED: MORPHINE SULFATE 4 MG/ML SYR/VIAL IV PRN (09:00)
[2025-02-15] MEDS ORDERED: MIDAZOLAM HCL 2MG/2ML 2ml VIAL (1mg/ml) IV PRN (09:00)
[2025-02-15] MEDS ORDERED: hydrALAZINE HCL 20 MG/ML VL IV PRN (09:00)
[2025-02-15] MEDS ORDERED: HYDROmorphone HCL 2 MG/ML VL/or syr IV PRN (09:00)
[2025-02-15] MEDS: HYDROmorphone HCL 2 MG/ML VL/or syr IV PRN (09:08)
[2025-02-15] MEDS: COLCHICINE 0.6 MG CAP PO SCH (10:46)
--- NOTE | 2025-02-15 16:06 | DVHPNRES ---
Progress Note Date Seen: Feb 15, 2025 Resident Creating Document: SONA HEARD VANESSA Has the PT tested + for MRSA If YES, has PT been informed?: No Medical Necessity Reason Pt with a Central, PICC or Fol: Yes The following are medically ne: Central Line (Left non tunneled IJ and tunneled right subclavian), Young Catheter Reason for young catheter: Strict I&O Subjective Review of Systems Patient seen and examined at bedside. Patient complaining of bilateral lower limb. Patient seen postoperative, surgical area was clean, with no sign of infection or bleeding. Objective vital signs Vital Sign Date Time Temp Pulse Resp B/P (MAP) Pulse Ox O2 Delivery O2 Flow Rate FiO2 02/15/25 13:37 81 18 100 02/15/25 13:30 Room Air 0.0 02/15/25 13:30 21 02/15/25 13:28 131/84 02/15/25 13:00 97.7 97.7 Total Intake and Output 02/14/25 02/14/25 02/15/25 15:00 23:00 07:00 Intake Total 1480 ml 25 ml Output Total 1250 ml 1600 ml Balance 230 ml -1575 ml medications Current Medications Medications Dose Ordered Sig/Natividad Route Start Time Stop Time Status Last Admin Dose Admin Thiamine HCl 100 mg DAILY IV 01/20/25 10:00 02/15/25 10:45 100 MG Folic Acid 1 mg/ Dextrose 50.2 ml @ 200.8 mls/ hr DAILY INJ 01/20/25 10:00 02/15/25 11:07 200.8 MLS/HR Metoclopramide HCl 5 mg Q8HR IV 01/23/25 16:30 02/15/25 14:11 5 MG Enteral Nutritional Formula 1,000 ml 50ML/HR GT 01/26/25 17:00 02/03/25 17:26 1,000 ML Sodium Chloride 10 ml QSHIFT@10,22 IV 01/28/25 22:00 02/15/25 10:45 10 ML Lactulose 30 ml DAILY PRN PO 01/30/25 07:00 01/31/25 21:39 30 ML Pantoprazole Sodium 40 mg DAILY IV 01/30/25 10:00 02/15/25 10:45 40 MG Spironolactone 25 mg DAILY PO 01/31/25 10:00 02/15/25 10:46 25 MG Acetaminophen 650 mg Q6HP PRN PO 01/31/25 07:15 02/10/25 05:44 650 MG Ipratropium [place] 0.5 mg Q4HWA NEB 02/05/25 18:00 02/15/25 13:30 0.5 MG Albuterol 2.5 mg Q4HWA NEB 02/05/25 18:00 02/15/25 13:30 2.5 MG Insulin Glargine 13 units QAM SC 02/07/25 07:00 02/14/25 06:38 13 UNITS Dextrose 50 ml UD IV 02/06/25 21:00 Carvedilol 6.25 mg Q12HR PO 02/07/25 08:00 02/15/25 10:47 6.25 MG Empaglifozin 10 mg DAILY PO 02/07/25 10:00 02/15/25 10:45 10 MG Lisinopril 10 mg DAILY PO 02/08/25 10:00 02/15/25 10:47 10 MG Diagnostic Test (Pha) 1 strip Q6HR 02/08/25 18:00 02/15/25 12:12 1 STRIP Insulin Human Lispro Q6HR SC 02/08/25 18:00 02/15/25 12:16 3 UNITS Hydromorphone HCl 0.25 mg Q4HPRN PRN IV 02/09/25 11:00 02/15/25 13:28 0.25 MG Sodium Chloride 1,000 ml @ 200 mls/hr Q5H IV 02/10/25 07:00 02/15/25 11:06 200 MLS/HR Allopurinol 100 mg DAILY PO 02/11/25 10:00 02/15/25 10:47 100 MG Vancomycin HCl 0 ml @ 0 mls/hr UD IV 02/11/25 11:45 Cancel Vancomycin HCl 100 ml @ 100 mls/hr Q8H IV 02/13/25 23:00 Cancel Ketorolac Tromethamine 15 mg Q12HR IV 02/14/25 22:00 02/19/25 21:59 02/15/25 10:46 15 MG Colchicine 0.6 mg DAILY PO 02/15/25 10:00 02/15/25 10:46 0.6 MG Acetaminophen/ Hydrocodone Bitart 1 tab Q6HP PRN PO 02/15/25 15:00 Examination General Appearance: Alert, following command, can speak few words HEENT: Atraumatic, PERRLA, EOMI, Mucous membrane moist/pink Respiratory: Clear to auscultation, Normal air movement Cardiovascular: Regular rate, Normal S1, Normal S2, No murmurs, no chest wall tenderness Abdominal: Normal bowel sounds, Soft, No tenderness, No hepatospenomegaly, No masses Extremities: Bilateral ankle and left wrist swollen, warm and tender. Patient was seen postoperative, right under 2nd, 3rd, 4th and 5th finger were amputated at the level of PIP joint. Postoperative, surgically was clean, no sign of bleeding or infection was observed. Skin: No rashes, No breakdown, No significant lesion Neuro: Normal gait, Normal speech, Strength at 5/5 X4 ext, Normal tone, Sensation intact, Cranial nerves 3-12 NL, Reflexes 2+ Psych/Mental Status: Mental status NL, Mood NL laboratory and microbiology Laboratory Tests 02/15/25 05:58 Test 02/15/25 05:58 Range/Units Serum Glucose 111 H 74-106 mg/dL Microbiology Date/Time Source Procedure Growth Status 02/13/25 14:30 Blood Blood Culture - Preliminary NO GROWTH AFTER 24 HOURS OF INCUBATION. Resulted 02/10/25 19:00 Voided Urine Urine Culture - Final Complete 01/29/25 11:35 Sputum Gram Stain - Final Complete 01/29/25 11:35 Sputum Respiratory Culture - Final Complete 01/23/25 20:14 Lung - Final Resulted 01/23/25 20:14 Lung - Final Resulted 01/23/25 20:14 Lung - Preliminary Resulted 01/23/25 20:14 Lung - Preliminary Resulted 01/23/25 20:14 Lung - Final See Separate Report... Resulted Labs and/or images reviewed: Labs reviewed by me, Image(s) reviewed by me Problem List/Assessment/Plan Problem List/Assessment/Plan This is a 60-year-old male with past medical history of alcohol use disorder, current heavy smoker, gout, dyslipidemia, came to the hospital due to low back pain. On 2nd day of admission, the patient is stabilized, developed AFib and SVT, underwent cardioversion and adenosine was given subsequently, due to respiratory distress and inability to maintain respiratory tract, the patient was sedated, intubated and put on mechanical ventilation. NEURO: Acute metabolic/toxic encephalopathy likely due to sepsis/alcohol use disorder * Currently, patient is awake and oriented. CARDIOVASCULAR: ? Cardiogenic shock, likely due to AFib with RVR/SVT Atrial fibrillation with RVR/SVT Acquired coagulopathy ? Acute on chronic Heart failure with reduced ejection fraction NSTEMI, likely type 2 due to above Sinus bradycardia Ruled out Endocarditis * Patient was 2 times reverted to NSR with cardioversion, subsequently put on amiodarone drip for 2 days, discontinued due to regaining sinus rhythm and bradycardia * EKG upon admission showed sinus rhythm with no significant ST or T-wave changes * Subsequent EKGs showed AFib with RVR and SVT, and reverted to normal sinus rhythm by giving amiodarone drip for 2 days * Echo shows, LVEF 45% severe pulmonary hypertension (RVSP 64) * CLAUDE on 01/27/2025, normal study PULMONARY: Acute hypoxic respiratory failure, likely due to pneumonia Pneumonia, likely due to Gram-positive/Gram-negative bacteria/viral ? Pulmonary hypertension Possible obstructive sleep apnea Atelectasis * CT scan shows upon admission showed, bilateral small pleural effusion * Bronchoscopy performed on 01/16/2024, had copious amount of mucus on bilateral main bronchus, sample sent for culture * Pulmonology is on the board * Breathing treatment and chest percussion q.4hr GASTROINTESTINAL: ? Upper GI bleeding, likely due to liver cirrhosis/portal hypertension Alcohol use disorder Hepatomegaly and hepatic steatosis, likely due to alcohol use disorder Splenomegaly, likely due to above Bilateral indirect inguinal hernia, fatigue content extending to the scrotum Diverticulosis * GI is on the board, recommended medical management at the moment, planning for endoscopy on outpatient basis * Thiamine and folic acid GENITOURINARY: JOSE on possible CKD, likely VMN (baseline record not available) * Nephrology on the board, performed 4 session of HD, last session on 01/26/2025, creatinine normalized ENDOCRINE: Newly diagnosed Diabetes, with hyperglycemia Dyslipidemia Thyroid nodule Obesity * HBA1c is 6.5 * Lispro subcutaneous premeal METABOLIC: Gout Hypokalemia Hypocalcemia Hypertriglyceridemia, likely due to propofol side effects Mild hypernatremia HEME: Severe thrombocytopenia, likely due to liver cirrhosis, normalized Mild anemia, normocytic normochromic * Status post transfusion of 1 unit RBC, 1 units FFP, and 1 unit platelet INFECTIOUS DISEASE: ? Septic shock likely due to pneumonia/bacteremia Recurrent spikes of fever Possible drug fever * Blood culture shows Gram-negative right, Salmonella sensitive to ampicillin * Sputum culture shows E coli, sensitive to ampicillin * Vancomycin and cefepime was given for 5 days, DC on 01/15/2025 * Ampicillin IV started on 01/15/2025, due to episodes of fever, ampicillin discontinued on 01/24/2025 * Over 01/16/24, the patient had multiple episodes of fever, patient is started back on vancomycin and meropenem on 01/24/2025, stopped vancomycin on 01/30/25 (given for 6 days) for possible drug fever * Acetaminophen p.r.n. for fever * Consulted infectious disease for fever of unknown origin, recommended to discontinue other antibiotic and give levofloxacin for 2 weeks * Blood culture from, 02/13/2025 showed no growth DERMATOLOGY: Right hand acute PAD/acute limb ischemia possibly due to arterial thrombosis, leading to possible right hand fingertip necrosis Right hand distal phalanges riding, likely due to radial artery thrombosis * Doppler ultrasound shows no significant arterial disease * Vascular surgeon consulted, performed right radial artery exploration with subsequent performed thrombectomy of the proximal radial artery, due to necrosis of distal phalanges of right hand, performed amputation of 2nd, 3rd, 4th, and 5th right hand finger at the level of PIP joint MUSCULOSKELETAL: Chronic back pain, due to severe lumbar disc disease Gout flare-up Uric acid is bed at 12.8 * Ketorolac 15 mg b.i.d. * Colchicine and allopurinol DIET: Puree diet DVT prophylax: Lovenox therapeutic dose started on 01/30/25 GI prophylaxis: Protonix 40 mg daily Bowel regimen: Lactulose 30 mg daily PRN Code status: Code status discussed with the family (son), full code LINES/DRAINS/ACCESS: * ETT: Intubated on 01/19/2025 and extubated on 02/05/2025 * Right subclavian tunneled catheter, placed on 01/26/2020, removed on 02/08/2025 * Drips: All drips discontinued * Young catheter: Exchanged on 01/30/2025 DISPOSITION: Med/surge Critical care time spent more than 26 minutes. Case discussed with Dr. Chadwick Plan discussed with: Patient, Other (RN) My Orders My Orders Orders - SONA HEARD RESDIENT Procedure Category Date Status Time Hydrocodone-Acet PHA 02/15/25 In Process 7.5/325mg Tab ([place] 15:00 Dietary Evaluation Review Comments: 1) Initiate Nephro-Haritha @ 1 tb qd 2) If patient remains NPO > 7 days, consider EN/TPN to meet at least 75% of estimated daily needs 3) If GI route is preferred, consider Nepro CarbSteady @ 30 mL/hr goal rate as tolerated. EN regimen will provide 1296 kcals. 58g Pro, and 523 mL free H2O per 24 hrs. Goal rate will meet ~ 92% estimated daily energy needs and ~ 43% estimated daily protein needs. 4) Advance to 60g CCHO renal diet when medically feasible, pending ST approal 5) Refer to outpatient RD/CDCES for weight management 6) Follow-up with cardiology, pulmonology, nephrology, gastroenterology, and hepatology 7) Follow-up with web content & social media manager r/t polysubstance abuse 8) Continue to monitor I&O, labs, and skin integrity Expected Outcomes/Goals: 1) patient to receive nutrition support within 7 days of NPO status 2) labs and GI symptoms to improve 3) diet to advance 4) f/u in 2-3 days Date of Service: Feb 15, 2025 Billing Provider: PINA CHADWICK MD Common Visit Codes: [id number] INP/OBS CARE(HIGH) SONA HEARD RESDIENT Feb 15, 2025 16:06 PINA CHADWICK MD Feb 15, 2025 22:30
[2025-02-15] MEDS: HYDROcodone-ACET 7.5/325MG TAB PO PRN (16:48)
--- NOTE | 2025-02-15 17:07 | DVHPN2 ---
Progress Note Date Seen: Feb 15, 2025 Resident Creating Document: NATALY BURNETTE RESIDENT Has the PT tested + for MRSA If YES, has PT been informed?: No Medical Necessity Reason Pt with a Central, PICC or Fol: Yes The following are medically ne: Central Line (Left non tunneled IJ and tunneled right subclavian), Young Catheter Reason for young catheter: Strict I&O Subjective Review of Systems Today's progress- The patient was evaluated postoperatively following right to 2 5 finger amputation. The surgical site is clean and no signs of active infection or bleeding. The patient also reports bilateral lower limb pain but denies nausea vomiting abdominal pain. He is tolerating feeds without complication and had 1 bowel movement today. Hemoglobin stable at 8.7 grams/deciliter. WBC count decreased to 16.9 from 20.5 trending down. LFTs overall normal, ALP mildly elevated at 1:42 a.m., improved from 165. Feeds continue on oral feeds. Objective vital signs Vital Sign Date Time Temp Pulse Resp B/P (MAP) Pulse Ox O2 Delivery O2 Flow Rate FiO2 02/15/25 16:55 97.1 52 19 97/73 (81) 90 97.1 02/15/25 13:30 Room Air 0.0 02/15/25 13:30 21 Total Intake and Output 02/14/25 02/14/25 02/15/25 15:00 23:00 07:00 Intake Total 1480 ml 25 ml Output Total 1250 ml 1600 ml Balance 230 ml -1575 ml medications Current Medications Medications Dose Ordered Sig/Natividad Route Start Time Stop Time Status Last Admin Dose Admin Thiamine HCl 100 mg DAILY IV 01/20/25 10:00 02/15/25 10:45 100 MG Folic Acid 1 mg/ Dextrose 50.2 ml @ 200.8 mls/ hr DAILY INJ 01/20/25 10:00 02/15/25 11:07 200.8 MLS/HR Metoclopramide HCl 5 mg Q8HR IV 01/23/25 16:30 02/15/25 14:11 5 MG Enteral Nutritional Formula 1,000 ml 50ML/HR GT 01/26/25 17:00 02/03/25 17:26 1,000 ML Sodium Chloride 10 ml QSHIFT@10,22 IV 01/28/25 22:00 02/15/25 10:45 10 ML Lactulose 30 ml DAILY PRN PO 01/30/25 07:00 01/31/25 21:39 30 ML Pantoprazole Sodium 40 mg DAILY IV 01/30/25 10:00 02/15/25 10:45 40 MG Spironolactone 25 mg DAILY PO 01/31/25 10:00 02/15/25 10:46 25 MG Acetaminophen 650 mg Q6HP PRN PO 01/31/25 07:15 02/10/25 05:44 650 MG Ipratropium [place] 0.5 mg Q4HWA [facility] 02/05/25 18:00 02/15/25 13:30 0.5 MG Albuterol 2.5 mg Q4HWA [facility] 02/05/25 18:00 02/15/25 13:30 2.5 MG Insulin Glargine 13 units QAM SC 02/07/25 07:00 02/14/25 06:38 13 UNITS Dextrose 50 ml UD IV 02/06/25 21:00 Carvedilol 6.25 mg Q12HR PO 02/07/25 08:00 02/15/25 10:47 6.25 MG Empaglifozin 10 mg DAILY PO 02/07/25 10:00 02/15/25 10:45 10 MG Lisinopril 10 mg DAILY PO 02/08/25 10:00 02/15/25 10:47 10 MG Diagnostic Test (Pha) 1 strip Q6HR 02/08/25 18:00 02/15/25 12:12 1 STRIP Insulin Human Lispro Q6HR SC 02/08/25 18:00 02/15/25 12:16 3 UNITS Hydromorphone HCl 0.25 mg Q4HPRN PRN IV 02/09/25 11:00 02/15/25 13:28 0.25 MG Sodium Chloride 1,000 ml @ 200 mls/hr Q5H IV 02/10/25 07:00 02/15/25 11:06 200 MLS/HR Allopurinol 100 mg DAILY PO 02/11/25 10:00 02/15/25 10:47 100 MG Vancomycin HCl 0 ml @ 0 mls/hr UD IV 02/11/25 11:45 Cancel Vancomycin HCl 100 ml @ 100 mls/hr Q8H IV 02/13/25 23:00 Cancel Ketorolac Tromethamine 15 mg Q12HR IV 02/14/25 22:00 02/19/25 21:59 02/15/25 10:46 15 MG Colchicine 0.6 mg DAILY PO 02/15/25 10:00 02/15/25 10:46 0.6 MG Acetaminophen/ Hydrocodone Bitart 1 tab Q6HP PRN PO 02/15/25 15:00 Examination General Appearance: Alert, following command, can speak few words HEENT: Atraumatic, PERRLA, EOMI, Mucous membrane moist/pink Respiratory: Clear to auscultation, Normal air movement Cardiovascular: Regular rate, Normal S1, Normal S2, No murmurs, no chest wall tenderness Abdominal: Normal bowel sounds, Soft, No tenderness, No hepatospenomegaly, No masses Extremities: Bilateral ankle and left wrist swollen, warm and tender. Patient was seen postoperative, right under 2nd, 3rd, 4th and 5th finger were amputated at the level of PIP joint. Postoperative, surgically was clean, no sign of bleeding or infection was observed. laboratory and microbiology Laboratory Tests 02/15/25 05:58 Test 02/15/25 05:58 Range/Units Serum Glucose 111 H 74-106 mg/dL Microbiology Date/Time Source Procedure Growth Status 02/13/25 14:30 Blood Blood Culture - Preliminary NO GROWTH AFTER 48 HOURS OF INCUBATION. Resulted 02/10/25 19:00 Voided Urine Urine Culture - Final Complete 01/29/25 11:35 Sputum Gram Stain - Final Complete 01/29/25 11:35 Sputum Respiratory Culture - Final Complete 01/23/25 20:14 Lung - Final Resulted 01/23/25 20:14 Lung - Final Resulted 01/23/25 20:14 Lung - Preliminary Resulted 01/23/25 20:14 Lung - Preliminary Resulted 01/23/25 20:14 Lung - Final See Separate Report... Resulted Labs and/or images reviewed: Labs reviewed by me, Image(s) reviewed by me Problem List/Assessment/Plan Problem List/Assessment/Plan Assessment 1. Upper GI bleeding resolved/stable * No new bleeding; NG aspirate clear; H/H stable. 2. Alcoholic cirrhosis with portal hypertension, chronic liver disease * MELD remains high; LFTs elevated; continue monitoring. 2.Sepsis associated hepatic dysfunction 3. Critical illness with gastroparesis improving with prokinetic therapy. 4. Constipation persistent despite regimen, possibly opioid/sedation related. 5. Sepsis with WBC spike on antibiotics; respiratory culture positive for Lelo (likely colonization vs. infection). Plan GI System Gastrointestinal / Nutrition Gastrointestinal / Hepatic: * Continue to monitor hemoglobin and signs of bleeding. Transfuse if hemoglobin less than 7.0. Continue to monitor stool for occult blood. * Continue oral diet as tolerated; high-protein, low-sodium nutrition. * Taper steroids per primary team * Monitor LFTs and coagulation profile daily while inpatient. * Outpatient EGD and colonoscopy to assess for portal hypertensive changes, varices, and CRC screening. Nutrition: * Continue TPN taper with goal of full oral nutrition prior to discharge. * Dietitian to follow for caloric/protein goals. Thrombosis / Coagulation: * Consider IVC filter placement for DVT given high bleeding risk. * Avoid anticoagulation until bleeding risk profile changes. Prophylaxis: * Continue PPI for stress ulcer prophylaxis. * Maintain aspiration precautions. Continue daily bowel monitoring, maintain soft stool consistency. The patient will require EGD and colonoscopy on outpatient basis and GI consult to be arranged after discharge for variceal screening, mucosal evaluation and colorectal cancer screening once the patient is stable for discharge Case discussed in detail with the attending physician, including the clinical presentation, diagnostic workup, and comprehensive management plan. Plan discussed with: Patient, Spouse Dietary Evaluation Review Comments: 1) Initiate Nephro-Haritha @ 1 tb qd 2) If patient remains NPO > 7 days, consider EN/TPN to meet at least 75% of estimated daily needs 3) If GI route is preferred, consider Nepro CarbSteady @ 30 mL/hr goal rate as tolerated. EN regimen will provide 1296 kcals. 58g Pro, and 523 mL free H2O per 24 hrs. Goal rate will meet ~ 92% estimated daily energy needs and ~ 43% estimated daily protein needs. 4) Advance to 60g CCHO renal diet when medically feasible, pending ST approal 5) Refer to outpatient RD/CDCES for weight management 6) Follow-up with cardiology, pulmonology, nephrology, gastroenterology, and hepatology 7) Follow-up with rn social work r/t polysubstance abuse 8) Continue to monitor I&O, labs, and skin integrity Expected Outcomes/Goals: 1) patient to receive nutrition support within 7 days of NPO status 2) labs and GI symptoms to improve 3) diet to advance 4) f/u in 2-3 days ALLURI,RAGHAVA RUTLEDGE RESIDENT Feb 15, 2025 17:07
--- NOTE | 2025-02-15 17:41 | DVHPN2 ---
Progress Note - Dictate Date Seen: Feb 15, 2025 Has the PT tested + for MRSA If YES, has PT been informed?: No Medical Necessity Reason Pt with a Central, PICC or Fol: Yes The following are medically ne: Central Line (Left non tunneled IJ and tunneled right subclavian), Young Catheter Reason for young catheter: Strict I&O vital signs Vital Sign Date Time Temp Pulse Resp B/P (MAP) Pulse Ox O2 Delivery O2 Flow Rate FiO2 02/15/25 16:55 97.1 52 19 97/73 (81) 90 97.1 02/15/25 13:30 Room Air 0.0 02/15/25 13:30 21 Total Intake and Output 02/14/25 02/14/25 02/15/25 15:00 23:00 07:00 Intake Total 1480 ml 25 ml Output Total 1250 ml 1600 ml Balance 230 ml -1575 ml medications Current Medications Medications Dose Ordered Sig/Natividad Route Start Time Stop Time Status Last Admin Dose Admin Thiamine HCl 100 mg DAILY IV 01/20/25 10:00 02/15/25 10:45 100 MG Folic Acid 1 mg/ Dextrose 50.2 ml @ 200.8 mls/ hr DAILY INJ 01/20/25 10:00 02/15/25 11:07 200.8 MLS/HR Metoclopramide HCl 5 mg Q8HR IV 01/23/25 16:30 02/15/25 14:11 5 MG Enteral Nutritional Formula 1,000 ml 50ML/HR GT 01/26/25 17:00 02/03/25 17:26 1,000 ML Sodium Chloride 10 ml QSHIFT@10,22 IV 01/28/25 22:00 02/15/25 10:45 10 ML Lactulose 30 ml DAILY PRN PO 01/30/25 07:00 01/31/25 21:39 30 ML Pantoprazole Sodium 40 mg DAILY IV 01/30/25 10:00 02/15/25 10:45 40 MG Spironolactone 25 mg DAILY PO 01/31/25 10:00 02/15/25 10:46 25 MG Acetaminophen 650 mg Q6HP PRN PO 01/31/25 07:15 02/10/25 05:44 650 MG Ipratropium [place] 0.5 mg Q4HWA NEB 02/05/25 18:00 02/15/25 13:30 0.5 MG Albuterol 2.5 mg Q4HWA NEB 02/05/25 18:00 02/15/25 13:30 2.5 MG Insulin Glargine 13 units QAM SC 02/07/25 07:00 02/14/25 06:38 13 UNITS Dextrose 50 ml UD IV 02/06/25 21:00 Carvedilol 6.25 mg Q12HR PO 02/07/25 08:00 02/15/25 10:47 6.25 MG Empaglifozin 10 mg DAILY PO 02/07/25 10:00 02/15/25 10:45 10 MG Lisinopril 10 mg DAILY PO 02/08/25 10:00 02/15/25 10:47 10 MG Diagnostic Test (Pha) 1 strip Q6HR 02/08/25 18:00 02/15/25 17:25 1 STRIP Insulin Human Lispro Q6HR SC 02/08/25 18:00 02/15/25 17:31 3 UNITS Hydromorphone HCl 0.25 mg Q4HPRN PRN IV 02/09/25 11:00 02/15/25 13:28 0.25 MG Sodium Chloride 1,000 ml @ 200 mls/hr Q5H IV 02/10/25 07:00 02/15/25 17:24 200 MLS/HR Allopurinol 100 mg DAILY PO 02/11/25 10:00 02/15/25 10:47 100 MG Vancomycin HCl 0 ml @ 0 mls/hr UD IV 02/11/25 11:45 Cancel Vancomycin HCl 100 ml @ 100 mls/hr Q8H IV 02/13/25 23:00 Cancel Ketorolac Tromethamine 15 mg Q12HR IV 02/14/25 22:00 02/19/25 21:59 02/15/25 10:46 15 MG Colchicine 0.6 mg DAILY PO 02/15/25 10:00 02/15/25 10:46 0.6 MG Acetaminophen/ Hydrocodone Bitart 1 tab Q6HP PRN PO 02/15/25 15:00 laboratory and microbiology Laboratory Tests 02/15/25 05:58 Test 02/15/25 05:58 Range/Units Serum Glucose 111 H 74-106 mg/dL Assessment/Plan Impression Acute hypoxic respiratory failure Hx of alcohol abuse Sepsis ESRD, on hemodialysis Obesity Events: S/p extubation low oxygen requirements on 2 liters nasal cannula no acute events Labs and imaging reviewed ABG reviewed Management Supplemental oxygen Titrate to maintain sats 90% or above Incentive spirometry Aspiration precautions Continue antibiotics. Monitor hemoglobin HD per Nephrology Monitor renal function Monitor electrolytes. Supplement as necessary. Monitor ins and outs. Maintain euvolemia PT dvt proph Dietary Evaluation Review Comments: 1) Initiate Nephro-Haritha @ 1 tb qd 2) If patient remains NPO > 7 days, consider EN/TPN to meet at least 75% of estimated daily needs 3) If GI route is preferred, consider Nepro CarbSteady @ 30 mL/hr goal rate as tolerated. EN regimen will provide 1296 kcals. 58g Pro, and 523 mL free H2O per 24 hrs. Goal rate will meet ~ 92% estimated daily energy needs and ~ 43% estimated daily protein needs. 4) Advance to 60g CCHO renal diet when medically feasible, pending ST approal 5) Refer to outpatient RD/[facility] for weight management 6) Follow-up with cardiology, pulmonology, nephrology, gastroenterology, and hepatology 7) Follow-up with drug abuse social worker r/t polysubstance abuse 8) Continue to monitor I&O, labs, and skin integrity Expected Outcomes/Goals: 1) patient to receive nutrition support within 7 days of NPO status 2) labs and GI symptoms to improve 3) diet to advance 4) f/u in 2-3 days Plan discussed with: Patient JONNATHAN FELICIANO MD Feb 15, 2025 17:41
[2025-02-16] VITALS (18 sets, daily range): BP systolic 106–143; BP diastolic 68–88; PULSE 70–82; RESP 16–20; TEMP 97.8–98.4; O2SAT 77–100
[2025-02-16 06:28] LABS: Hematocrit 24.1 % (41.0-53.0); Hemoglobin 8.2 g/dL (13.5-17.5)
[2025-02-16 06:30] LABS: Mean Corpuscular Hemoglobin 28.4 pg (28.0-32.0); Mean Corpuscular Volume 83.6 fL (80.0-100.0); Nucleated Red Blood Cells % 0.1 %
[2025-02-16 07:00] LABS: Alanine Aminotransferase 26 U/L (7-40); Anion Gap 12 (5-15); BUN/Creatinine Ratio 28.4 (10.0-20.0); Bilirubin, Total 0.7 mg/dL (0.2-1.0); Chloride 106 mmol/L (98-107); Potassium 3.7 mmol/L (3.5-5.1); Sodium 136 mmol/L (136-145)
[2025-02-16 07:12] LABS: Albumin 3.1 g/dL (3.2-4.8); Alkaline Phosphatase 136 U/L (46-116); Blood Urea Nitrogen 27 mg/dL (9-23); Calcium 7.9 mg/dL (8.7-10.4); Carbon Dioxide 18 mmol/L (20-31); Glucose 138 mg/dL (74-106); Total Protein 5.6 g/dL (5.7-8.2)
[2025-02-16] MEDS ORDERED: VANCOMYCIN PER PHARMACY 0 MG IV SCH (07:30)
[2025-02-16] MEDS ORDERED: VANCOMYCIN 1GM/250ML KIT 250 ML IV SCH (08:15)
[2025-02-16] MEDS: VANCOMYCIN 1GM/250ML KIT 250 ML IV SCH (09:28)
--- NOTE | 2025-02-16 15:50 | DVHPN2 ---
Progress Note - Dictate Date Seen: Feb 16, 2025 Medical Necessity Reason Pt with a Central, PICC or Fol: No Reason for young catheter: Strict I&O vital signs Vital Sign Date Time Temp Pulse Resp B/P (MAP) Pulse Ox O2 Delivery O2 Flow Rate FiO2 02/16/25 14:38 70 20 97 02/16/25 13:00 97.9 121/80 (94) 97.9 02/16/25 10:25 Room Air* 0 21 Total Intake and Output 02/15/25 02/15/25 02/16/25 15:00 23:00 07:00 Intake Total 50.2 ml 200 ml 0 ml Output Total 700 ml Balance 50.2 ml -500 ml 0 ml medications Current Medications Medications Dose Ordered Sig/Natividad Route Start Time Stop Time Status Last Admin Dose Admin Thiamine HCl 100 mg DAILY IV 01/20/25 10:00 02/16/25 08:52 100 MG Folic Acid 1 mg/ Dextrose 50.2 ml @ 200.8 mls/ hr DAILY INJ 01/20/25 10:00 02/16/25 08:59 200.8 MLS/HR Metoclopramide HCl 5 mg Q8HR IV 01/23/25 16:30 02/16/25 14:14 5 MG Enteral Nutritional Formula 1,000 ml 50ML/HR GT 01/26/25 17:00 02/03/25 17:26 1,000 ML Sodium Chloride 10 ml QSHIFT@10,22 IV 01/28/25 22:00 02/16/25 08:53 10 ML Lactulose 30 ml DAILY PRN PO 01/30/25 07:00 01/31/25 21:39 30 ML Pantoprazole Sodium 40 mg DAILY IV 01/30/25 10:00 02/16/25 08:52 40 MG Spironolactone 25 mg DAILY PO 01/31/25 10:00 02/16/25 08:53 25 MG Acetaminophen 650 mg Q6HP PRN PO 01/31/25 07:15 02/10/25 05:44 650 MG Ipratropium [place] 0.5 mg Q4HWA NEB 02/05/25 18:00 02/16/25 14:38 0.5 MG Albuterol 2.5 mg Q4HWA NEB 02/05/25 18:00 02/16/25 14:38 2.5 MG Insulin Glargine 13 units QAM SC 02/07/25 07:00 02/16/25 06:05 13 UNITS Dextrose 50 ml UD IV 02/06/25 21:00 Carvedilol 6.25 mg Q12HR PO 02/07/25 08:00 02/16/25 08:54 6.25 MG Empaglifozin 10 mg DAILY PO 02/07/25 10:00 02/16/25 08:54 10 MG Lisinopril 10 mg DAILY PO 02/08/25 10:00 02/16/25 08:55 10 MG Diagnostic Test (Pha) 1 strip Q6HR 02/08/25 18:00 02/16/25 12:00 1 STRIP Insulin Human Lispro Q6HR SC 02/08/25 18:00 02/16/25 12:20 1 UNITS Hydromorphone HCl 0.25 mg Q4HPRN PRN IV 02/09/25 11:00 02/15/25 13:28 0.25 MG Sodium Chloride 1,000 ml @ 200 mls/hr Q5H IV 02/10/25 07:00 02/16/25 08:00 200 MLS/HR Allopurinol 100 mg DAILY PO 02/11/25 10:00 02/16/25 08:55 100 MG Vancomycin HCl 0 ml @ 0 mls/hr UD IV 02/11/25 11:45 Cancel Vancomycin HCl 100 ml @ 100 mls/hr Q8H IV 02/13/25 23:00 Cancel Ketorolac Tromethamine 15 mg Q12HR IV 02/14/25 22:00 02/19/25 21:59 02/16/25 08:52 15 MG Colchicine 0.6 mg DAILY PO 02/15/25 10:00 02/16/25 08:53 0.6 MG Acetaminophen/ Hydrocodone Bitart 1 tab Q6HP PRN PO 02/15/25 15:00 02/16/25 13:32 1 TAB Vancomycin HCl 0 ml @ 0 mls/hr UD IV 02/16/25 07:30 Vancomycin HCl 250 ml @ 250 mls/hr Q1H IV 02/16/25 08:15 02/16/25 10:14 UNV Vancomycin HCl 250 ml @ 200 mls/hr Q12H IV 02/16/25 09:00 02/16/25 09:28 200 MLS/HR laboratory and microbiology Laboratory Tests 02/16/25 05:43 Test 02/16/25 05:43 Range/Units Serum Glucose 138 H 74-106 mg/dL Assessment/Plan Impression Acute hypoxic respiratory failure Hx of alcohol abuse Sepsis ESRD, on hemodialysis Obesity Events: S/p extubation low oxygen requirements on 2 liters nasal cannula no distress Labs and imaging reviewed ABG reviewed Management Supplemental oxygen Titrate to maintain sats 90% or above Incentive spirometry Aspiration precautions Continue antibiotics. Monitor hemoglobin HD per Nephrology Monitor renal function Monitor electrolytes. Supplement as necessary. Monitor ins and outs. Maintain euvolemia PT dvt proph Dietary Evaluation Review Comments: 1) Initiate Nephro-Haritha @ 1 tb qd 2) If patient remains NPO > 7 days, consider EN/TPN to meet at least 75% of estimated daily needs 3) If GI route is preferred, consider Nepro CarbSteady @ 30 mL/hr goal rate as tolerated. EN regimen will provide 1296 kcals. 58g Pro, and 523 mL free H2O per 24 hrs. Goal rate will meet ~ 92% estimated daily energy needs and ~ 43% estimated daily protein needs. 4) Advance to 60g CCHO renal diet when medically feasible, pending ST approal 5) Refer to outpatient RD/[facility] for weight management 6) Follow-up with cardiology, pulmonology, nephrology, gastroenterology, and hepatology 7) Follow-up with director social service r/t polysubstance abuse 8) Continue to monitor I&O, labs, and skin integrity Expected Outcomes/Goals: 1) patient to receive nutrition support within 7 days of NPO status 2) labs and GI symptoms to improve 3) diet to advance 4) f/u in 2-3 days Plan discussed with: Patient JONNATHAN FELICIANO MD Feb 16, 2025 15:50
--- NOTE | 2025-02-16 16:47 | DVHPNRES ---
Progress Note Date Seen: Feb 16, 2025 Resident Creating Document: SONA HEARD RESDIENT Medical Necessity Reason Pt with a Central, PICC or Fol: No Reason for young catheter: Strict I&O Subjective Review of Systems Patient seen and examined at the bedside. Patient is feeling well and has no active complaint. Objective vital signs Vital Sign Date Time Temp Pulse Resp B/P (MAP) Pulse Ox O2 Delivery O2 Flow Rate FiO2 02/16/25 14:38 70 20 97 02/16/25 13:00 97.9 121/80 (94) 97.9 02/16/25 10:25 Room Air* 0 21 Total Intake and Output 02/15/25 02/15/25 02/16/25 14:59 22:59 06:59 Intake Total 50.2 ml 200 ml 0 ml Output Total 700 ml Balance 50.2 ml -500 ml 0 ml medications Current Medications Medications Dose Ordered Sig/Natividad Route Start Time Stop Time Status Last Admin Dose Admin Thiamine HCl 100 mg DAILY IV 01/20/25 10:00 02/16/25 08:52 100 MG Folic Acid 1 mg/ Dextrose 50.2 ml @ 200.8 mls/ hr DAILY INJ 01/20/25 10:00 02/16/25 08:59 200.8 MLS/HR Metoclopramide HCl 5 mg Q8HR IV 01/23/25 16:30 02/16/25 14:14 5 MG Enteral Nutritional Formula 1,000 ml 50ML/HR GT 01/26/25 17:00 02/03/25 17:26 1,000 ML Sodium Chloride 10 ml QSHIFT@10,22 IV 01/28/25 22:00 02/16/25 08:53 10 ML Lactulose 30 ml DAILY PRN PO 01/30/25 07:00 01/31/25 21:39 30 ML Pantoprazole Sodium 40 mg DAILY IV 01/30/25 10:00 02/16/25 08:52 40 MG Spironolactone 25 mg DAILY PO 01/31/25 10:00 02/16/25 08:53 25 MG Acetaminophen 650 mg Q6HP PRN PO 01/31/25 07:15 02/10/25 05:44 650 MG Ipratropium [place] 0.5 mg Q4HWA NEB 02/05/25 18:00 02/16/25 14:38 0.5 MG Albuterol 2.5 mg Q4HWA NEB 02/05/25 18:00 02/16/25 14:38 2.5 MG Insulin Glargine 13 units QAM SC 02/07/25 07:00 02/16/25 06:05 13 UNITS Dextrose 50 ml UD IV 02/06/25 21:00 Carvedilol 6.25 mg Q12HR PO 02/07/25 08:00 02/16/25 08:54 6.25 MG Empaglifozin 10 mg DAILY PO 02/07/25 10:00 02/16/25 08:54 10 MG Lisinopril 10 mg DAILY PO 02/08/25 10:00 02/16/25 08:55 10 MG Diagnostic Test (Pha) 1 strip Q6HR 02/08/25 18:00 02/16/25 12:00 1 STRIP Insulin Human Lispro Q6HR SC 02/08/25 18:00 02/16/25 12:20 1 UNITS Hydromorphone HCl 0.25 mg Q4HPRN PRN IV 02/09/25 11:00 02/15/25 13:28 0.25 MG Sodium Chloride 1,000 ml @ 200 mls/hr Q5H IV 02/10/25 07:00 02/16/25 08:00 200 MLS/HR Allopurinol 100 mg DAILY PO 02/11/25 10:00 02/16/25 08:55 100 MG Vancomycin HCl 0 ml @ 0 mls/hr UD IV 02/11/25 11:45 Cancel Vancomycin HCl 100 ml @ 100 mls/hr Q8H IV 02/13/25 23:00 Cancel Ketorolac Tromethamine 15 mg Q12HR IV 02/14/25 22:00 02/19/25 21:59 02/16/25 08:52 15 MG Colchicine 0.6 mg DAILY PO 02/15/25 10:00 02/16/25 08:53 0.6 MG Acetaminophen/ Hydrocodone Bitart 1 tab Q6HP PRN PO 02/15/25 15:00 02/16/25 13:32 1 TAB Vancomycin HCl 0 ml @ 0 mls/hr UD IV 02/16/25 07:30 Vancomycin HCl 250 ml @ 250 mls/hr Q1H IV 02/16/25 08:15 02/16/25 10:14 UNV Vancomycin HCl 250 ml @ 200 mls/hr Q12H IV 02/16/25 09:00 02/16/25 09:28 200 MLS/HR Examination General Appearance: Alert, following command, can speak few words HEENT: Atraumatic, PERRLA, EOMI, Mucous membrane moist/pink Respiratory: Clear to auscultation, Normal air movement Cardiovascular: Regular rate, Normal S1, Normal S2, No murmurs, no chest wall tenderness Abdominal: Normal bowel sounds, Soft, No tenderness, No hepatospenomegaly, No masses Extremities: Bilateral ankle and left wrist swollen, warm and tender. Patient was seen postoperative, right under 2nd, 3rd, 4th and 5th finger were amputated at the level of PIP joint. Postoperative, surgically was clean, no sign of bleeding or infection was observed. Skin: No rashes, No breakdown, No significant lesion Neuro: Normal gait, Normal speech, Strength at 5/5 X4 ext, Normal tone, Sensation intact, Cranial nerves 3-12 NL, Reflexes 2+ Psych/Mental Status: Mental status NL, Mood NL laboratory and microbiology Laboratory Tests 02/16/25 05:43 Test 02/16/25 05:43 Range/Units Serum Glucose 138 H 74-106 mg/dL Microbiology Date/Time Source Procedure Growth Status 02/13/25 14:30 Blood Blood Culture - Preliminary NO GROWTH AFTER 72 HOURS OF INCUBATION. Resulted 02/10/25 19:00 Voided Urine Urine Culture - Final Complete 01/29/25 11:35 Sputum Gram Stain - Final Complete 01/29/25 11:35 Sputum Respiratory Culture - Final Complete 01/23/25 20:14 Lung - Final Resulted 01/23/25 20:14 Lung - Final Resulted 01/23/25 20:14 Lung - Preliminary Resulted 01/23/25 20:14 Lung - Preliminary Resulted 01/23/25 20:14 Lung - Final See Separate Report... Resulted Labs and/or images reviewed: Labs reviewed by me, Image(s) reviewed by me Problem List/Assessment/Plan Problem List/Assessment/Plan This is a 60-year-old male with past medical history of alcohol use disorder, current heavy smoker, gout, dyslipidemia, came to the hospital due to low back pain. On 2nd day of admission, the patient is stabilized, developed AFib and SVT, underwent cardioversion and adenosine was given subsequently, due to respiratory distress and inability to maintain respiratory tract, the patient was sedated, intubated and put on mechanical ventilation. NEURO: Acute metabolic/toxic encephalopathy likely due to sepsis/alcohol use disorder * Currently, patient is awake and oriented. CARDIOVASCULAR: ? Cardiogenic shock, likely due to AFib with RVR/SVT Atrial fibrillation with RVR/SVT Acquired coagulopathy ? Acute on chronic Heart failure with reduced ejection fraction NSTEMI, likely type 2 due to above Sinus bradycardia Ruled out Endocarditis * Patient was 2 times reverted to NSR with cardioversion, subsequently put on amiodarone drip for 2 days, discontinued due to regaining sinus rhythm and bradycardia * EKG upon admission showed sinus rhythm with no significant ST or T-wave changes * Subsequent EKGs showed AFib with RVR and SVT, and reverted to normal sinus rhythm by giving amiodarone drip for 2 days * Echo shows, LVEF 45% severe pulmonary hypertension (RVSP 64) * CLAUDE on 01/27/2025, normal study PULMONARY: Acute hypoxic respiratory failure, likely due to pneumonia Pneumonia, likely due to Gram-positive/Gram-negative bacteria/viral ? Pulmonary hypertension Possible obstructive sleep apnea Atelectasis * CT scan shows upon admission showed, bilateral small pleural effusion * Bronchoscopy performed on 01/16/2024, had copious amount of mucus on bilateral main bronchus, sample sent for culture * Pulmonology is on the board * Breathing treatment and chest percussion q.4hr GASTROINTESTINAL: ? Upper GI bleeding, likely due to liver cirrhosis/portal hypertension Alcohol use disorder Hepatomegaly and hepatic steatosis, likely due to alcohol use disorder Splenomegaly, likely due to above Bilateral indirect inguinal hernia, fatigue content extending to the scrotum Diverticulosis * GI is on the board, recommended medical management at the moment, planning for endoscopy on outpatient basis * Thiamine and folic acid GENITOURINARY: JOSE on possible CKD, likely VMN (baseline record not available) * Nephrology on the board, performed 4 session of HD, last session on 01/26/2025, creatinine normalized ENDOCRINE: Newly diagnosed Diabetes, with hyperglycemia Dyslipidemia Thyroid nodule Obesity * HBA1c is 6.5 * Lispro subcutaneous premeal METABOLIC: Gout Hypokalemia Hypocalcemia Hypertriglyceridemia, likely due to propofol side effects Mild hypernatremia HEME: Severe thrombocytopenia, likely due to liver cirrhosis, normalized Mild anemia, normocytic normochromic * Status post transfusion of 1 unit RBC, 1 units FFP, and 1 unit platelet INFECTIOUS DISEASE: ? Septic shock likely due to pneumonia/bacteremia Recurrent spikes of fever Possible drug fever * Blood culture shows Gram-negative right, Salmonella sensitive to ampicillin * Sputum culture shows E coli, sensitive to ampicillin * Vancomycin and cefepime was given for 5 days, DC on 01/15/2025 * Ampicillin IV started on 01/15/2025, due to episodes of fever, ampicillin discontinued on 01/24/2025 * Over 01/16/24, the patient had multiple episodes of fever, patient is started back on vancomycin and meropenem on 01/24/2025, stopped vancomycin on 01/30/25 (given for 6 days) for possible drug fever * Acetaminophen p.r.n. for fever * Consulted infectious disease for fever of unknown origin, recommended to discontinue other antibiotic and give levofloxacin for 2 weeks * Blood culture from, 02/13/2025 showed no growth DERMATOLOGY: Right hand acute PAD/acute limb ischemia possibly due to arterial thrombosis, leading to possible right hand fingertip necrosis Right hand distal phalanges riding, likely due to radial artery thrombosis * Doppler ultrasound shows no significant arterial disease * Vascular surgeon consulted, performed right radial artery exploration with subsequent performed thrombectomy of the proximal radial artery, due to necrosis of distal phalanges of right hand, performed amputation of 2nd, 3rd, 4th, and 5th right hand finger at the level of PIP joint MUSCULOSKELETAL: Chronic back pain, due to severe lumbar disc disease Gout flare-up Uric acid is bed at 12.8 * Ketorolac 15 mg b.i.d. * Colchicine and allopurinol DIET: Puree diet DVT prophylax: Lovenox therapeutic dose started on 01/30/25 GI prophylaxis: Protonix 40 mg daily Bowel regimen: Lactulose 30 mg daily PRN Code status: Code status discussed with the family (son), full code LINES/DRAINS/ACCESS: * ETT: Intubated on 01/19/2025 and extubated on 02/05/2025 * Right subclavian tunneled catheter, placed on 01/26/2020, removed on 02/08/2025 * Drips: All drips discontinued * Young catheter: Exchanged on 01/30/2025 DISPOSITION: Med/surge Patient has been discharge, waiting for SNF placement for rehabilitation. Critical care time spent more than 26 minutes. Case discussed with Dr. Chadwick Plan discussed with: Patient, Other (RN) My Orders My Orders Orders - SONA HEARD Procedure Category Date Status Time Incentive Spirometry ORDERS 02/16/25 Transmitted Q 1hr 07:25 Vancomycin Per [facility] 02/16/25 In Process Pharmacy 07:30 Vancomycin 1gm/250ml [facility] 02/16/25 In Process Kit 09:00 Vancomycin Per [facility] 02/17/25 In Process Pharmacy Protoc 21:00 Vancomycin,Trough LAB 02/17/25 Verified 20:00 Complete Blood Count LAB 02/17/25 Verified 04:00 Creatinine LAB 02/17/25 Verified 04:00 D/C Young [facility] 02/16/25 In Process 12:24 Dietary Evaluation Review Comments: 1) Initiate Nephro-Haritha @ 1 tb qd 2) If patient remains NPO > 7 days, consider EN/TPN to meet at least 75% of estimated daily needs 3) If GI route is preferred, consider Nepro CarbSteady @ 30 mL/hr goal rate as tolerated. EN regimen will provide 1296 kcals. 58g Pro, and 523 mL free H2O per 24 hrs. Goal rate will meet ~ 92% estimated daily energy needs and ~ 43% estimated daily protein needs. 4) Advance to 60g CCHO renal diet when medically feasible, pending ST approal 5) Refer to outpatient RD/[facility] for weight management 6) Follow-up with cardiology, pulmonology, nephrology, gastroenterology, and hepatology 7) Follow-up with medical social consultant r/t polysubstance abuse 8) Continue to monitor I&O, labs, and skin integrity Expected Outcomes/Goals: 1) patient to receive nutrition support within 7 days of NPO status 2) labs and GI symptoms to improve 3) diet to advance 4) f/u in 2-3 days SONA HEARD Feb 16, 2025 16:47
--- NOTE | 2025-02-16 18:43 | DVHPN2 ---
Progress Note Date Seen: Feb 16, 2025 Resident Creating Document: NATALY BURNETTE RESIDENT Medical Necessity Reason Pt with a Central, PICC or Fol: No Reason for young catheter: Strict I&O Subjective Review of Systems Today's progress- The patient was examined at bedside and has no complaints. The patient was evaluated postoperatively following right to 2 -5 finger amputation. The surgical site is clean and no signs of active infection or bleeding. He is tolerating feeds without complication and had 1 bowel movement today. Hemoglobin stable at 8.2 grams/deciliter. WBC count increased to 24.8 from 16.9 high LFTs overall normal, ALP mildly elevated at 136 Feeds continue on oral feeds. Objective vital signs Vital Sign Date Time Temp Pulse Resp B/P (MAP) Pulse Ox O2 Delivery O2 Flow Rate FiO2 02/16/25 17:14 98.0 77 19 129/84 (99) 94 98.0 02/16/25 10:25 Room Air* 0 21 Total Intake and Output 02/15/25 02/15/25 02/16/25 15:00 23:00 07:00 Intake Total 50.2 ml 200 ml 0 ml Output Total 700 ml Balance 50.2 ml -500 ml 0 ml medications Current Medications Medications Dose Ordered Sig/Natividad Route Start Time Stop Time Status Last Admin Dose Admin Thiamine HCl 100 mg DAILY IV 01/20/25 10:00 02/16/25 08:52 100 MG Folic Acid 1 mg/ Dextrose 50.2 ml @ 200.8 mls/ hr DAILY INJ 01/20/25 10:00 02/16/25 08:59 200.8 MLS/HR Metoclopramide HCl 5 mg Q8HR IV 01/23/25 16:30 02/16/25 14:14 5 MG Enteral Nutritional Formula 1,000 ml 50ML/HR GT 01/26/25 17:00 02/03/25 17:26 1,000 ML Sodium Chloride 10 ml QSHIFT@10,22 IV 01/28/25 22:00 02/16/25 08:53 10 ML Lactulose 30 ml DAILY PRN PO 01/30/25 07:00 01/31/25 21:39 30 ML Pantoprazole Sodium 40 mg DAILY IV 01/30/25 10:00 02/16/25 08:52 40 MG Spironolactone 25 mg DAILY PO 01/31/25 10:00 02/16/25 08:53 25 MG Acetaminophen 650 mg Q6HP PRN PO 01/31/25 07:15 02/10/25 05:44 650 MG Ipratropium [place] 0.5 mg Q4HWA [facility] 02/05/25 18:00 02/16/25 14:38 0.5 MG Albuterol 2.5 mg Q4HWA NEB 02/05/25 18:00 02/16/25 14:38 2.5 MG Insulin Glargine 13 units QAM SC 02/07/25 07:00 02/16/25 06:05 13 UNITS Dextrose 50 ml UD IV 02/06/25 21:00 Carvedilol 6.25 mg Q12HR PO 02/07/25 08:00 02/16/25 08:54 6.25 MG Empaglifozin 10 mg DAILY PO 02/07/25 10:00 02/16/25 08:54 10 MG Lisinopril 10 mg DAILY PO 02/08/25 10:00 02/16/25 08:55 10 MG Diagnostic Test (Pha) 1 strip Q6HR 02/08/25 18:00 02/16/25 17:30 1 STRIP Insulin Human Lispro Q6HR SC 02/08/25 18:00 02/16/25 12:20 1 UNITS Hydromorphone HCl 0.25 mg Q4HPRN PRN IV 02/09/25 11:00 02/15/25 13:28 0.25 MG Sodium Chloride 1,000 ml @ 200 mls/hr Q5H IV 02/10/25 07:00 02/16/25 08:00 200 MLS/HR Allopurinol 100 mg DAILY PO 02/11/25 10:00 02/16/25 08:55 100 MG Vancomycin HCl 0 ml @ 0 mls/hr UD IV 02/11/25 11:45 Cancel Vancomycin HCl 100 ml @ 100 mls/hr Q8H IV 02/13/25 23:00 Cancel Ketorolac Tromethamine 15 mg Q12HR IV 02/14/25 22:00 02/19/25 21:59 02/16/25 08:52 15 MG Colchicine 0.6 mg DAILY PO 02/15/25 10:00 02/16/25 08:53 0.6 MG Acetaminophen/ Hydrocodone Bitart 1 tab Q6HP PRN PO 02/15/25 15:00 02/16/25 13:32 1 TAB Vancomycin HCl 0 ml @ 0 mls/hr UD IV 02/16/25 07:30 Vancomycin HCl 250 ml @ 250 mls/hr Q1H IV 02/16/25 08:15 02/16/25 10:14 UNV Vancomycin HCl 250 ml @ 200 mls/hr Q12H IV 02/16/25 09:00 02/16/25 09:28 200 MLS/HR Examination General Appearance: Alert, following command, can speak few words Abdominal: Normal bowel sounds, Soft, No tenderness, No hepatospenomegaly, No masses Extremities: Bilateral ankle and left wrist swollen, warm and tender. Patient was seen postoperative, right under 2nd, 3rd, 4th and 5th finger were amputated at the level of PIP joint. Postoperative, surgically was clean, no sign of bleeding or infection was observed. laboratory and microbiology Laboratory Tests 02/16/25 05:43 Test 02/16/25 05:43 Range/Units Serum Glucose 138 H 74-106 mg/dL Microbiology Date/Time Source Procedure Growth Status 02/15/25 17:05 Blood Blood Culture - Preliminary NO GROWTH AFTER 24 HOURS OF INCUBATION. Resulted 02/10/25 19:00 Voided Urine Urine Culture - Final Complete 01/29/25 11:35 Sputum Gram Stain - Final Complete 01/29/25 11:35 Sputum Respiratory Culture - Final Complete 01/23/25 20:14 Lung - Final Resulted 01/23/25 20:14 Lung - Final Resulted 01/23/25 20:14 Lung - Preliminary Resulted 01/23/25 20:14 Lung - Preliminary Resulted 01/23/25 20:14 Lung - Final See Separate Report... Resulted Problem List/Assessment/Plan Problem List/Assessment/Plan Assessment 1. Upper GI bleeding resolved/stable * No new bleeding; NG aspirate clear; H/H stable. 2. Alcoholic cirrhosis with portal hypertension, chronic liver disease * MELD remains high; LFTs elevated; continue monitoring. 2.Sepsis associated hepatic dysfunction 3. Critical illness with gastroparesis improving with prokinetic therapy. 4. Constipation persistent despite regimen, possibly opioid/sedation related. 5. Sepsis with WBC spike on antibiotics; respiratory culture positive for Lelo (likely colonization vs. infection). Plan GI System Gastrointestinal / Nutrition Gastrointestinal / Hepatic: * Continue to monitor hemoglobin and signs of bleeding. Transfuse if hemoglobin less than 7.0. Continue to monitor stool for occult blood. * Continue oral diet as tolerated; high-protein, low-sodium nutrition. * Taper steroids per primary team * Monitor LFTs and coagulation profile daily while inpatient. * Outpatient EGD and colonoscopy to assess for portal hypertensive changes, varices, and CRC screening. Nutrition: * Continue TPN taper with goal of full oral nutrition prior to discharge. * Dietitian to follow for caloric/protein goals. Thrombosis / Coagulation: * Consider IVC filter placement for DVT given high bleeding risk. * Avoid anticoagulation until bleeding risk profile changes. Prophylaxis: * Continue PPI for stress ulcer prophylaxis. * Maintain aspiration precautions. Continue daily bowel monitoring, maintain soft stool consistency. The patient will require EGD and colonoscopy on outpatient basis and GI consult to be arranged after discharge for variceal screening, mucosal evaluation and colorectal cancer screening once the patient is stable for discharge Case discussed in detail with the attending physician, including the clinical presentation, diagnostic workup, and comprehensive management plan. Plan discussed with: Patient Dietary Evaluation Review Comments: 1) Initiate Nephro-Haritha @ 1 tb qd 2) If patient remains NPO > 7 days, consider EN/TPN to meet at least 75% of estimated daily needs 3) If GI route is preferred, consider Nepro CarbSteady @ 30 mL/hr goal rate as tolerated. EN regimen will provide 1296 kcals. 58g Pro, and 523 mL free H2O per 24 hrs. Goal rate will meet ~ 92% estimated daily energy needs and ~ 43% estimated daily protein needs. 4) Advance to 60g CCHO renal diet when medically feasible, pending ST approal 5) Refer to outpatient RD/CDCES for weight management 6) Follow-up with cardiology, pulmonology, nephrology, gastroenterology, and hepatology 7) Follow-up with social director r/t polysubstance abuse 8) Continue to monitor I&O, labs, and skin integrity Expected Outcomes/Goals: 1) patient to receive nutrition support within 7 days of NPO status 2) labs and GI symptoms to improve 3) diet to advance 4) f/u in 2-3 days NATALY BURNETTE RESIDENT Feb 16, 2025 18:43
--- NOTE | 2025-02-16 19:38 | DVHPN2 ---
Consult Progress Note Date Seen: Feb 16, 2025 Subjective Patient reports: Feels better (sp amputation of necrotic fingers) Objective vital signs Vital Sign Date Time Temp Pulse Resp B/P (MAP) Pulse Ox O2 Delivery O2 Flow Rate FiO2 02/16/25 17:14 98.0 77 19 129/84 (99) 94 98.0 02/16/25 10:25 Room Air* 0 21 Total Intake and Output 02/15/25 02/15/25 02/16/25 15:00 23:00 07:00 Intake Total 50.2 ml 200 ml 0 ml Output Total 700 ml Balance 50.2 ml -500 ml 0 ml medications Current Medications Medications Dose Ordered Sig/Natividad Route Start Time Stop Time Status Last Admin Dose Admin Thiamine HCl 100 mg DAILY IV 01/20/25 10:00 02/16/25 08:52 100 MG Folic Acid 1 mg/ Dextrose 50.2 ml @ 200.8 mls/ hr DAILY INJ 01/20/25 10:00 02/16/25 08:59 200.8 MLS/HR Metoclopramide HCl 5 mg Q8HR IV 01/23/25 16:30 02/16/25 14:14 5 MG Enteral Nutritional Formula 1,000 ml 50ML/HR GT 01/26/25 17:00 02/03/25 17:26 1,000 ML Sodium Chloride 10 ml QSHIFT@10,22 IV 01/28/25 22:00 02/16/25 08:53 10 ML Lactulose 30 ml DAILY PRN PO 01/30/25 07:00 01/31/25 21:39 30 ML Pantoprazole Sodium 40 mg DAILY IV 01/30/25 10:00 02/16/25 08:52 40 MG Spironolactone 25 mg DAILY PO 01/31/25 10:00 02/16/25 08:53 25 MG Acetaminophen 650 mg Q6HP PRN PO 01/31/25 07:15 02/10/25 05:44 650 MG Ipratropium [place] 0.5 mg Q4HWA NEB 02/05/25 18:00 02/16/25 14:38 0.5 MG Albuterol 2.5 mg Q4HWA NEB 02/05/25 18:00 02/16/25 14:38 2.5 MG Insulin Glargine 13 units QAM SC 02/07/25 07:00 02/16/25 06:05 13 UNITS Dextrose 50 ml UD IV 02/06/25 21:00 Carvedilol 6.25 mg Q12HR PO 02/07/25 08:00 02/16/25 08:54 6.25 MG Empaglifozin 10 mg DAILY PO 02/07/25 10:00 02/16/25 08:54 10 MG Lisinopril 10 mg DAILY PO 02/08/25 10:00 02/16/25 08:55 10 MG Diagnostic Test (Pha) 1 strip Q6HR 02/08/25 18:00 02/16/25 17:30 1 STRIP Insulin Human Lispro Q6HR SC 02/08/25 18:00 02/16/25 12:20 1 UNITS Hydromorphone HCl 0.25 mg Q4HPRN PRN IV 02/09/25 11:00 02/15/25 13:28 0.25 MG Sodium Chloride 1,000 ml @ 200 mls/hr Q5H IV 02/10/25 07:00 02/16/25 08:00 200 MLS/HR Allopurinol 100 mg DAILY PO 02/11/25 10:00 02/16/25 08:55 100 MG Vancomycin HCl 0 ml @ 0 mls/hr UD IV 02/11/25 11:45 Cancel Vancomycin HCl 100 ml @ 100 mls/hr Q8H IV 02/13/25 23:00 Cancel Ketorolac Tromethamine 15 mg Q12HR IV 02/14/25 22:00 02/19/25 21:59 02/16/25 08:52 15 MG Colchicine 0.6 mg DAILY PO 02/15/25 10:00 02/16/25 08:53 0.6 MG Acetaminophen/ Hydrocodone Bitart 1 tab Q6HP PRN PO 02/15/25 15:00 02/16/25 13:32 1 TAB Vancomycin HCl 0 ml @ 0 mls/hr UD IV 02/16/25 07:30 Vancomycin HCl 250 ml @ 250 mls/hr Q1H IV 02/16/25 08:15 02/16/25 10:14 UNV Vancomycin HCl 250 ml @ 200 mls/hr Q12H IV 02/16/25 09:00 02/16/25 09:28 200 MLS/HR laboratory and microbiology Laboratory Tests 02/16/25 05:43 Test 02/16/25 05:43 Range/Units Serum Glucose 138 H 74-106 mg/dL Problem List/Assessment/Plan Problem List/Assessment/Plan ASSESSMENT AND PLAN: ID Problem List: \-- Cirrhosis and septic shock secondary to Salmonella bacteremia \-- E. coli aspiration pneumonia \-- Acute kidney injury, now improving \-- Thrombocytopenia (platelets low, now improving) \-- Severe degenerative lumbar disc disease with foraminal stenosis \-- Chronic alcohol dependence \-- Gout \-- Constipation \-- Poor medical follow-up Assessment: This is a 60-year-old male with a history of gout (not on any medications), chronic heavy alcohol use, and no surgical history, who presented with severe back pain and evidence of systemic infection with complicated clinical course. Patient was admitted for possible complicated urinary tract infection/urosepsis/pyelonephritis, acute kidney injury, and alcohol withdrawal. Notable findings include: severe thrombocytopenia on admission (platelets 53), initial lactic acidosis, and persistently elevated white count. Blood cultures grew Salmonella group D (sensitive to ampicillin and trimethoprim- sulfamethoxazole). Sputum culture grew penicillin-sensitive E. coli. Later, daria was found in the lungs; fluconazole was started. Patient required broad- spectrum antibiotics (initially meropenem and vancomycin), now with plans to deescalate as below. Fevers initially resolved, then recurred. Creatinine acutely increased (peak 5.25), now improved to 1.37; hemoglobin stable. Imaging notable for degenerative severe lumbar disc disease, cardiomegaly with left ventricular dysfunction and severe pulmonary hypertension, bilateral mild effusions, hepatomegaly, hepatosteatosis, and inguinal hernias. 01/31: chest x ray shows worsening right , improving left pilor interstitial opacities suggesting shifting pulmonary edema 02/01: patient is getting started on tube feeds and tolerating them and having good urine output through folley cath 02/02: creatinine at 1.03 , liver enzymes are slowly up trending on levofloxacin therapy , will continue to monitor 02/03: tolerating Cpap and awaiting for patient to awaken 02/08: start on anticoagulation for DVT in leg 02/13: started on vancomycin for fevers, staph epi in blood 02/16: sp amputation of necrotic digits in hand Plan: -- repeat blood cultures are ngtd \--suspect leukocytosis is related to methylpred use wean as tolerated -- continue vancomycin and ceftriaxone and flagyl for 5-7 days sp operative removal of potential infected source (fingers). -- if diarrhea persists, consider c-diff testing, low overall suspicion for now. \-- Monitor for recurrent or persistent fevers; if persistent, consider drug fever, catheter-associated thrombosis, or other non-infectious etiology \-- Continue aspiration precautions \-- Monitor renal function, platelet count, and hemodynamics \-- Admit for monitoring of alcohol withdrawal and supportive care \-- Continue to evaluate and manage pain related to severe lumbar degenerative disc disease Plan discussed with: Patient Dietary Evaluation Review Comments: 1) Initiate Nephro-Haritha @ 1 tb qd 2) If patient remains NPO > 7 days, consider EN/TPN to meet at least 75% of estimated daily needs 3) If GI route is preferred, consider Nepro CarbSteady @ 30 mL/hr goal rate as tolerated. EN regimen will provide 1296 kcals. 58g Pro, and 523 mL free H2O per 24 hrs. Goal rate will meet ~ 92% estimated daily energy needs and ~ 43% estimated daily protein needs. 4) Advance to 60g CCHO renal diet when medically feasible, pending ST approal 5) Refer to outpatient RD/CDCES for weight management 6) Follow-up with cardiology, pulmonology, nephrology, gastroenterology, and hepatology 7) Follow-up with director of social media marketing r/t polysubstance abuse 8) Continue to monitor I&O, labs, and skin integrity Expected Outcomes/Goals: 1) patient to receive nutrition support within 7 days of NPO status 2) labs and GI symptoms to improve 3) diet to advance 4) f/u in 2-3 days KRISTIN CABALLERO MD Feb 16, 2025 19:38
[2025-02-16] MEDS: cefTRIAXone 2GM/50ML D5W 50 ML IV SCH (20:43)
[2025-02-16] MEDS: metroNIDAZOLE 500 MG TAB PO SCH (22:02)
[2025-02-17] VITALS (16 sets, daily range): BP systolic 106–133; BP diastolic 71–88; PULSE 65–90; RESP 17–20; TEMP 98.1–98.7; O2SAT 95–100
[2025-02-17 06:04] LABS: Hemoglobin 8.3 g/dL (13.5-17.5); Mean Corpuscular Hemoglobin 28.8 pg (28.0-32.0); Mean Corpuscular Volume 83.6 fL (80.0-100.0)
[2025-02-17 06:09] LABS: Hematocrit 24.1 % (41.0-53.0)
[2025-02-17] MEDS: VANCOMYCIN 1GM/250ML KIT 250 ML IV SCH (10:08)
[2025-02-17 10:27] LABS: Total Cells Counted 100.0 (100)
--- NOTE | 2025-02-17 14:44 | DVHPNRES ---
Progress Note Date Seen: Feb 17, 2025 Resident Creating Document: SONA HEARD RESDIENT Medical Necessity Reason Pt with a Central, PICC or Fol: No Reason for young catheter: Strict I&O Subjective Review of Systems Patient seen and examined at the bedside. Patient is feeling well and has no active complaint. Objective vital signs Vital Sign Date Time Temp Pulse Resp B/P (MAP) Pulse Ox O2 Delivery O2 Flow Rate FiO2 02/17/25 13:50 83 18 99 02/17/25 13:50 Room Air* 0 21 02/17/25 13:00 98.5 114/76 (89) 98.5 Total Intake and Output 02/16/25 02/16/25 02/17/25 15:00 23:00 07:00 Intake Total 300.2 ml 600 ml Output Total 650 ml Balance 300.2 ml 600 ml -650 ml medications Current Medications Medications Dose Ordered Sig/Natividad Route Start Time Stop Time Status Last Admin Dose Admin Thiamine HCl 100 mg DAILY IV 01/20/25 10:00 02/17/25 09:54 100 MG Folic Acid 1 mg/ Dextrose 50.2 ml @ 200.8 mls/ hr DAILY INJ 01/20/25 10:00 02/17/25 12:37 200.8 MLS/HR Metoclopramide HCl 5 mg Q8HR IV 01/23/25 16:30 02/17/25 13:53 5 MG Enteral Nutritional Formula 1,000 ml 50ML/HR GT 01/26/25 17:00 02/03/25 17:26 1,000 ML Sodium Chloride 10 ml QSHIFT@10,22 IV 01/28/25 22:00 02/17/25 10:06 10 ML Lactulose 30 ml DAILY PRN PO 01/30/25 07:00 01/31/25 21:39 30 ML Pantoprazole Sodium 40 mg DAILY IV 01/30/25 10:00 02/17/25 09:57 40 MG Spironolactone 25 mg DAILY PO 01/31/25 10:00 02/17/25 09:51 25 MG Acetaminophen 650 mg Q6HP PRN PO 01/31/25 07:15 02/10/25 05:44 650 MG Ipratropium [place] 0.5 mg Q4HWA NEB 02/05/25 18:00 02/17/25 13:50 0.5 MG Albuterol 2.5 mg Q4HWA NEB 02/05/25 18:00 02/17/25 13:50 2.5 MG Insulin Glargine 13 units QAM SC 02/07/25 07:00 02/16/25 06:05 13 UNITS Dextrose 50 ml UD IV 02/06/25 21:00 Carvedilol 6.25 mg Q12HR PO 02/07/25 08:00 02/17/25 09:50 6.25 MG Empaglifozin 10 mg DAILY PO 02/07/25 10:00 02/17/25 09:51 10 MG Lisinopril 10 mg DAILY PO 02/08/25 10:00 02/17/25 09:51 10 MG Diagnostic Test (Pha) 1 strip Q6HR 02/08/25 18:00 02/17/25 12:29 1 STRIP Insulin Human Lispro Q6HR SC 02/08/25 18:00 02/16/25 12:20 1 UNITS Hydromorphone HCl 0.25 mg Q4HPRN PRN IV 02/09/25 11:00 02/15/25 13:28 0.25 MG Sodium Chloride 1,000 ml @ 200 mls/hr Q5H IV 02/10/25 07:00 02/17/25 04:21 200 MLS/HR Allopurinol 100 mg DAILY PO 02/11/25 10:00 02/17/25 09:51 100 MG Vancomycin HCl 0 ml @ 0 mls/hr UD IV 02/11/25 11:45 Cancel Vancomycin HCl 100 ml @ 100 mls/hr Q8H IV 02/13/25 23:00 Cancel Ketorolac Tromethamine 15 mg Q12HR IV 02/14/25 22:00 02/19/25 21:59 02/17/25 09:49 15 MG Colchicine 0.6 mg DAILY PO 02/15/25 10:00 02/17/25 09:51 0.6 MG Acetaminophen/ Hydrocodone Bitart 1 tab Q6HP PRN PO 02/15/25 15:00 02/17/25 12:27 1 TAB Vancomycin HCl 0 ml @ 0 mls/hr UD IV 02/16/25 07:30 Vancomycin HCl 250 ml @ 250 mls/hr Q1H IV 02/16/25 08:15 02/16/25 10:14 UNV Ceftriaxone Sodium/Dextrose 50 ml @ 50 mls/hr DAILY IV 02/16/25 20:07 02/17/25 12:27 50 MLS/HR Metronidazole 500 mg Q8HR PO 02/16/25 22:00 02/17/25 13:52 500 MG Vancomycin HCl 250 ml @ 200 mls/hr Q12H IV 02/17/25 21:00 laboratory and microbiology Laboratory Tests 02/17/25 04:48 02/16/25 05:43 Test 02/16/25 05:43 Range/Units Serum Glucose 138 H 74-106 mg/dL Microbiology Date/Time Source Procedure Growth Status 02/15/25 17:05 Blood Blood Culture - Preliminary NO GROWTH AFTER 24 HOURS OF INCUBATION. Resulted 02/10/25 19:00 Voided Urine Urine Culture - Final Complete 01/29/25 11:35 Sputum Gram Stain - Final Complete 01/29/25 11:35 Sputum Respiratory Culture - Final Complete 01/23/25 20:14 Lung - Final Resulted 01/23/25 20:14 Lung - Final Resulted 01/23/25 20:14 Lung - Preliminary Resulted 01/23/25 20:14 Lung - Preliminary Resulted 01/23/25 20:14 Lung - Final See Separate Report... Resulted Labs and/or images reviewed: Labs reviewed by me, Image(s) reviewed by me Problem List/Assessment/Plan Problem List/Assessment/Plan This is a 60-year-old male with past medical history of alcohol use disorder, current heavy smoker, gout, dyslipidemia, came to the hospital due to low back pain. On 2nd day of admission, the patient is stabilized, developed AFib and SVT, underwent cardioversion and adenosine was given subsequently, due to respiratory distress and inability to maintain respiratory tract, the patient was sedated, intubated and put on mechanical ventilation. NEURO: Acute metabolic/toxic encephalopathy likely due to sepsis/alcohol use disorder * Currently, patient is awake and oriented. CARDIOVASCULAR: ? Cardiogenic shock, likely due to AFib with RVR/SVT Atrial fibrillation with RVR/SVT Acquired coagulopathy ? Acute on chronic Heart failure with reduced ejection fraction NSTEMI, likely type 2 due to above Sinus bradycardia Ruled out Endocarditis * Patient was 2 times reverted to NSR with cardioversion, subsequently put on amiodarone drip for 2 days, discontinued due to regaining sinus rhythm and bradycardia * EKG upon admission showed sinus rhythm with no significant ST or T-wave changes * Subsequent EKGs showed AFib with RVR and SVT, and reverted to normal sinus rhythm by giving amiodarone drip for 2 days * Echo shows, LVEF 45% severe pulmonary hypertension (RVSP 64) * CLAUDE on 01/27/2025, normal study PULMONARY: Acute hypoxic respiratory failure, likely due to pneumonia Pneumonia, likely due to Gram-positive/Gram-negative bacteria/viral ? Pulmonary hypertension Possible obstructive sleep apnea Atelectasis * CT scan shows upon admission showed, bilateral small pleural effusion * Bronchoscopy performed on 01/16/2024, had copious amount of mucus on bilateral main bronchus, sample sent for culture * Pulmonology is on the board * Breathing treatment and chest percussion q.4hr GASTROINTESTINAL: ? Upper GI bleeding, likely due to liver cirrhosis/portal hypertension Alcohol use disorder Hepatomegaly and hepatic steatosis, likely due to alcohol use disorder Splenomegaly, likely due to above Bilateral indirect inguinal hernia, fatigue content extending to the scrotum Diverticulosis * GI is on the board, recommended medical management at the moment, planning for endoscopy on outpatient basis * Thiamine and folic acid GENITOURINARY: JOSE on possible CKD, likely VMN (baseline record not available) * Nephrology on the board, performed 4 session of HD, last session on 01/26/2025, creatinine normalized ENDOCRINE: Newly diagnosed Diabetes, with hyperglycemia Dyslipidemia Thyroid nodule Obesity * HBA1c is 6.5 * Lispro subcutaneous premeal METABOLIC: Gout Hypokalemia Hypocalcemia Hypertriglyceridemia, likely due to propofol side effects Mild hypernatremia HEME: Severe thrombocytopenia, likely due to liver cirrhosis, normalized Mild anemia, normocytic normochromic * Status post transfusion of 1 unit RBC, 1 units FFP, and 1 unit platelet INFECTIOUS DISEASE: ? Septic shock likely due to pneumonia/bacteremia Recurrent spikes of fever Possible drug fever * Blood culture shows Gram-negative right, Salmonella sensitive to ampicillin * Sputum culture shows E coli, sensitive to ampicillin * Vancomycin and cefepime was given for 5 days, DC on 01/15/2025 * Ampicillin IV started on 01/15/2025, due to episodes of fever, ampicillin discontinued on 01/24/2025 * Over 01/16/24, the patient had multiple episodes of fever, patient is started back on vancomycin and meropenem on 01/24/2025, stopped vancomycin on 01/30/25 (given for 6 days) for possible drug fever * Acetaminophen p.r.n. for fever * Consulted infectious disease for fever of unknown origin, recommended to discontinue other antibiotic and give levofloxacin for 2 weeks * Blood culture from, 02/13/2025 showed no growth DERMATOLOGY: Right hand acute PAD/acute limb ischemia possibly due to arterial thrombosis, leading to possible right hand fingertip necrosis Right hand distal phalanges riding, likely due to radial artery thrombosis * Doppler ultrasound shows no significant arterial disease * Vascular surgeon consulted, performed right radial artery exploration with subsequent performed thrombectomy of the proximal radial artery, due to necrosis of distal phalanges of right hand, performed amputation of 2nd, 3rd, 4th, and 5th right hand finger at the level of PIP joint MUSCULOSKELETAL: Chronic back pain, due to severe lumbar disc disease Gout flare-up Uric acid is bed at 12.8 * Ketorolac 15 mg b.i.d. * Colchicine and allopurinol DIET: Puree diet DVT prophylax: Lovenox therapeutic dose started on 01/30/25 GI prophylaxis: Protonix 40 mg daily Bowel regimen: Lactulose 30 mg daily PRN Code status: Code status discussed with the family (son), full code LINES/DRAINS/ACCESS: * ETT: Intubated on 01/19/2025 and extubated on 02/05/2025 * Right subclavian tunneled catheter, placed on 01/26/2020, removed on 02/08/2025 * Drips: All drips discontinued * Young catheter: Exchanged on 01/30/2025 DISPOSITION: Med/surge Patient has been discharge on 02/16/2025, waiting for SNF placement for rehabilitation. Critical care time spent more than 26 minutes. Case discussed with Dr. Chadwick Plan discussed with: Patient, Other (RN) My Orders My Orders Orders - SONA HEARD RESDIVIRI Procedure Category Date Status Time Vancomycin 1gm/250ml PHA 02/17/25 In Process Kit 21:00 Dietary Evaluation Review Comments: 1) Initiate Nephro-Haritha @ 1 tb qd 2) If patient remains NPO > 7 days, consider EN/TPN to meet at least 75% of estimated daily needs 3) If GI route is preferred, consider Nepro CarbSteady @ 30 mL/hr goal rate as tolerated. EN regimen will provide 1296 kcals. 58g Pro, and 523 mL free H2O per 24 hrs. Goal rate will meet ~ 92% estimated daily energy needs and ~ 43% estimated daily protein needs. 4) Advance to 60g CCHO renal diet when medically feasible, pending ST approal 5) Refer to outpatient RD/CDCES for weight management 6) Follow-up with cardiology, pulmonology, nephrology, gastroenterology, and hepatology 7) Follow-up with social service director r/t polysubstance abuse 8) Continue to monitor I&O, labs, and skin integrity Expected Outcomes/Goals: 1) patient to receive nutrition support within 7 days of NPO status 2) labs and GI symptoms to improve 3) diet to advance 4) f/u in 2-3 days SONA HEARD RESDIVIRI Feb 17, 2025 14:44
--- NOTE | 2025-02-17 15:38 | DVHPN2 ---
Progress Note Date Seen: Feb 17, 2025 Resident Creating Document: NATALY BURNETTE RESIDENT Has the PT tested + for MRSA If YES, has PT been informed?: No Medical Necessity Reason Pt with a Central, PICC or Fol: No Reason for young catheter: Strict I&O Subjective Review of Systems Today's progress- The patient was examined at bedside and has no complaints. The patient was evaluated postoperatively following right to 2 -5 finger amputation. The surgical site is clean and no signs of active infection or bleeding. He is tolerating feeds without complication his last bowel movement was on 15 February Hemoglobin stable at 8.3 grams/deciliter. WBC count improved to 14.1 LFTs overall normal, ALP mildly elevated at 136 Feeds continue on oral feeds. Objective vital signs Vital Sign Date Time Temp Pulse Resp B/P (MAP) Pulse Ox O2 Delivery O2 Flow Rate FiO2 02/17/25 13:50 83 18 99 02/17/25 13:50 Room Air* 0 21 02/17/25 13:00 98.5 114/76 (89) 98.5 Total Intake and Output 02/16/25 02/16/25 02/17/25 15:00 23:00 07:00 Intake Total 300.2 ml 600 ml Output Total 650 ml Balance 300.2 ml 600 ml -650 ml medications Current Medications Medications Dose Ordered Sig/Natividad Route Start Time Stop Time Status Last Admin Dose Admin Thiamine HCl 100 mg DAILY IV 01/20/25 10:00 02/17/25 09:54 Folic Acid 1 mg/ Dextrose 50.2 ml @ 200.8 mls/ hr DAILY INJ 01/20/25 10:00 02/17/25 12:37 Metoclopramide HCl 5 mg Q8HR IV 01/23/25 16:30 02/17/25 13:53 Enteral Nutritional Formula 1,000 ml 50ML/HR GT 01/26/25 17:00 02/03/25 17:26 Sodium Chloride 10 ml QSHIFT@10,22 IV 01/28/25 22:00 02/17/25 10:06 Lactulose 30 ml DAILY PRN PO 01/30/25 07:00 01/31/25 21:39 Pantoprazole Sodium 40 mg DAILY IV 01/30/25 10:00 02/17/25 09:57 Spironolactone 25 mg DAILY PO 01/31/25 10:00 02/17/25 09:51 Acetaminophen 650 mg Q6HP PRN PO 01/31/25 07:15 02/10/25 05:44 Ipratropium [place] 0.5 mg Q4HWA NEB 02/05/25 18:00 02/17/25 13:50 Albuterol 2.5 mg Q4HWA NEB 02/05/25 18:00 02/17/25 13:50 Insulin Glargine 13 units QAM SC 02/07/25 07:00 02/16/25 06:05 Dextrose 50 ml UD IV 02/06/25 21:00 Carvedilol 6.25 mg Q12HR PO 02/07/25 08:00 02/17/25 09:50 Empaglifozin 10 mg DAILY PO 02/07/25 10:00 02/17/25 09:51 Lisinopril 10 mg DAILY PO 02/08/25 10:00 02/17/25 09:51 Diagnostic Test (Pha) 1 strip Q6HR 02/08/25 18:00 02/17/25 12:29 Insulin Human Lispro Q6HR SC 02/08/25 18:00 02/16/25 12:20 Hydromorphone HCl 0.25 mg Q4HPRN PRN IV 02/09/25 11:00 02/15/25 13:28 Allopurinol 100 mg DAILY PO 02/11/25 10:00 02/17/25 09:51 Vancomycin HCl 0 ml @ 0 mls/hr UD IV 02/11/25 11:45 Cancel Vancomycin HCl 100 ml @ 100 mls/hr Q8H IV 02/13/25 23:00 Cancel Ketorolac Tromethamine 15 mg Q12HR IV 02/14/25 22:00 02/19/25 21:59 02/17/25 09:49 Colchicine 0.6 mg DAILY PO 02/15/25 10:00 02/17/25 09:51 Acetaminophen/ Hydrocodone Bitart 1 tab Q6HP PRN PO 02/15/25 15:00 02/17/25 12:27 Vancomycin HCl 250 ml @ 250 mls/hr Q1H IV 02/16/25 08:15 02/16/25 10:14 UNV Ceftriaxone Sodium/Dextrose 50 ml @ 50 mls/hr DAILY IV 02/16/25 20:07 02/17/25 12:27 Metronidazole 500 mg Q8HR PO 02/16/25 22:00 02/17/25 13:52 Vancomycin HCl 250 ml @ 200 mls/hr Q12H IV 02/17/25 21:00 Examination General Appearance: Alert, following command, can speak normally Abdominal: Normal bowel sounds, Soft, No tenderness, No hepatospenomegaly, No masses Extremities: Bilateral ankle and left wrist swollen, warm and tender. Patient was seen postoperative, right under 2nd, 3rd, 4th and 5th finger were amputated at the level of PIP joint. Postoperative, surgically was clean, no sign of bleeding or infection was observed. laboratory and microbiology Laboratory Tests 02/17/25 04:48 02/16/25 05:43 Test 02/16/25 05:43 Range/Units Serum Glucose 138 H 74-106 mg/dL Microbiology Date/Time Source Procedure Growth Status 02/15/25 17:05 Blood Blood Culture - Preliminary NO GROWTH AFTER 24 HOURS OF INCUBATION. Resulted 02/10/25 19:00 Voided Urine Urine Culture - Final Complete 01/29/25 11:35 Sputum Gram Stain - Final Complete 01/29/25 11:35 Sputum Respiratory Culture - Final Complete 01/23/25 20:14 Lung - Final Resulted 01/23/25 20:14 Lung - Final Resulted 01/23/25 20:14 Lung - Preliminary Resulted 01/23/25 20:14 Lung - Preliminary Resulted 01/23/25 20:14 Lung - Final See Separate Report... Resulted Problem List/Assessment/Plan Problem List/Assessment/Plan Assessment 1. Upper GI bleeding resolved/stable * No new bleeding; NG aspirate clear; H/H stable. 2. Alcoholic cirrhosis with portal hypertension, chronic liver disease * MELD remains high; LFTs elevated; continue monitoring. 2.Sepsis associated hepatic dysfunction 3. Critical illness with gastroparesis improving with prokinetic therapy. 4. Constipation persistent despite regimen, possibly opioid/sedation related. 5. Sepsis with WBC spike on antibiotics; respiratory culture positive for Lelo (likely colonization vs. infection). Plan GI System Gastrointestinal / Nutrition Gastrointestinal / Hepatic: * Continue to monitor hemoglobin and signs of bleeding. Transfuse if hemoglobin less than 7.0. Continue to monitor stool for occult blood. * Continue oral diet as tolerated; high-protein, low-sodium nutrition. * Taper steroids per primary team * Monitor LFTs and coagulation profile daily while inpatient. * Outpatient EGD and colonoscopy to assess for portal hypertensive changes, varices, and CRC screening. Nutrition: * Continue TPN taper with goal of full oral nutrition prior to discharge. * Dietitian to follow for caloric/protein goals. Thrombosis / Coagulation: * Consider IVC filter placement for DVT given high bleeding risk. * Avoid anticoagulation until bleeding risk profile changes. Prophylaxis: * Continue PPI for stress ulcer prophylaxis. * Maintain aspiration precautions. Continue daily bowel monitoring, maintain soft stool consistency. The patient will require EGD and colonoscopy on outpatient basis and GI consult to be arranged after discharge for variceal screening, mucosal evaluation and colorectal cancer screening once the patient is stable for discharge Case discussed in detail with the attending physician, including the clinical presentation, diagnostic workup, and comprehensive management plan. Plan discussed with: Patient, Spouse Dietary Evaluation Review Comments: 1) Initiate Nephro-Haritha @ 1 tb qd 2) If patient remains NPO > 7 days, consider EN/TPN to meet at least 75% of estimated daily needs 3) If GI route is preferred, consider Nepro CarbSteady @ 30 mL/hr goal rate as tolerated. EN regimen will provide 1296 kcals. 58g Pro, and 523 mL free H2O per 24 hrs. Goal rate will meet ~ 92% estimated daily energy needs and ~ 43% estimated daily protein needs. 4) Advance to 60g CCHO renal diet when medically feasible, pending ST approal 5) Refer to outpatient RD/CDCES for weight management 6) Follow-up with cardiology, pulmonology, nephrology, gastroenterology, and hepatology 7) Follow-up with social and political studies professor r/t polysubstance abuse 8) Continue to monitor I&O, labs, and skin integrity Expected Outcomes/Goals: 1) patient to receive nutrition support within 7 days of NPO status 2) labs and GI symptoms to improve 3) diet to advance 4) f/u in 2-3 days NATALY BURNETTE RESIDENT Feb 17, 2025 15:38
[2025-02-17] MEDS ORDERED: VANCOMYCIN 1GM/250ML KIT 250 ML IV SCH (21:00)
--- NOTE | 2025-02-17 23:30 | DVHPN2 ---
Consult Progress Note Objective vital signs Vital Sign Date Time Temp Pulse Resp B/P (MAP) Pulse Ox O2 Delivery O2 Flow Rate FiO2 02/17/25 21:54 85 128/74 02/17/25 19:21 18 100 02/17/25 19:15 Room Air 0.0 02/17/25 19:15 21 02/17/25 17:00 98.7 98.7 Total Intake and Output 02/16/25 02/16/25 02/17/25 15:00 23:00 07:00 Intake Total 300.2 ml 600 ml Output Total 650 ml Balance 300.2 ml 600 ml -650 ml medications Current Medications Medications Dose Ordered Sig/Natividad Route Start Time Stop Time Status Last Admin Dose Admin Thiamine HCl 100 mg DAILY IV 01/20/25 10:00 02/17/25 09:54 100 MG Folic Acid 1 mg/ Dextrose 50.2 ml @ 200.8 mls/ hr DAILY INJ 01/20/25 10:00 02/17/25 12:37 200.8 MLS/HR Metoclopramide HCl 5 mg Q8HR IV 01/23/25 16:30 02/17/25 21:01 5 MG Enteral Nutritional Formula 1,000 ml 50ML/HR GT 01/26/25 17:00 02/03/25 17:26 1,000 ML Sodium Chloride 10 ml QSHIFT@10,22 IV 01/28/25 22:00 02/17/25 20:50 10 ML Lactulose 30 ml DAILY PRN PO 01/30/25 07:00 01/31/25 21:39 30 ML Pantoprazole Sodium 40 mg DAILY IV 01/30/25 10:00 02/17/25 09:57 40 MG Spironolactone 25 mg DAILY PO 01/31/25 10:00 02/17/25 09:51 25 MG Acetaminophen 650 mg Q6HP PRN PO 01/31/25 07:15 02/10/25 05:44 650 MG Ipratropium [place] 0.5 mg Q4HWA NEB 02/05/25 18:00 02/17/25 19:15 0.5 MG Albuterol 2.5 mg Q4HWA NEB 02/05/25 18:00 02/17/25 19:15 2.5 MG Insulin Glargine 13 units QAM SC 02/07/25 07:00 02/16/25 06:05 13 UNITS Dextrose 50 ml UD IV 02/06/25 21:00 Carvedilol 6.25 mg Q12HR PO 02/07/25 08:00 02/17/25 21:54 6.25 MG Empaglifozin 10 mg DAILY PO 02/07/25 10:00 02/17/25 09:51 10 MG Lisinopril 10 mg DAILY PO 02/08/25 10:00 02/17/25 09:51 10 MG Diagnostic Test (Pha) 1 strip Q6HR 02/08/25 18:00 02/17/25 19:27 1 STRIP Insulin Human Lispro Q6HR SC 02/08/25 18:00 02/16/25 12:20 1 UNITS Hydromorphone HCl 0.25 mg Q4HPRN PRN IV 02/09/25 11:00 02/15/25 13:28 0.25 MG Allopurinol 100 mg DAILY PO 02/11/25 10:00 02/17/25 09:51 100 MG Vancomycin HCl 0 ml @ 0 mls/hr UD IV 02/11/25 11:45 Cancel Vancomycin HCl 100 ml @ 100 mls/hr Q8H IV 02/13/25 23:00 Cancel Ketorolac Tromethamine 15 mg Q12HR IV 02/14/25 22:00 02/19/25 21:59 02/17/25 22:00 15 MG Colchicine 0.6 mg DAILY PO 02/15/25 10:00 02/17/25 09:51 0.6 MG Acetaminophen/ Hydrocodone Bitart 1 tab Q6HP PRN PO 02/15/25 15:00 02/17/25 20:50 1 TAB Vancomycin HCl 250 ml @ 250 mls/hr Q1H IV 02/16/25 08:15 02/16/25 10:14 UNV Ceftriaxone Sodium/Dextrose 50 ml @ 50 mls/hr DAILY IV 02/16/25 20:07 02/17/25 12:27 50 MLS/HR Metronidazole 500 mg Q8HR PO 02/16/25 22:00 02/17/25 21:01 500 MG laboratory and microbiology Laboratory Tests 02/17/25 04:48 02/16/25 05:43 Test 02/16/25 05:43 Range/Units Serum Glucose 138 H 74-106 mg/dL Problem List/Assessment/Plan Problem List/Assessment/Plan ASSESSMENT AND PLAN: ID Problem List: \-- Cirrhosis and septic shock secondary to Salmonella bacteremia \-- E. coli aspiration pneumonia \-- Acute kidney injury, now improving \-- Thrombocytopenia (platelets low, now improving) \-- Severe degenerative lumbar disc disease with foraminal stenosis \-- Chronic alcohol dependence \-- Gout \-- Constipation \-- Poor medical follow-up Assessment: This is a 60-year-old male with a history of gout (not on any medications), chronic heavy alcohol use, and no surgical history, who presented with severe back pain and evidence of systemic infection with complicated clinical course. Patient was admitted for possible complicated urinary tract infection/urosepsis/pyelonephritis, acute kidney injury, and alcohol withdrawal. Notable findings include: severe thrombocytopenia on admission (platelets 53), initial lactic acidosis, and persistently elevated white count. Blood cultures grew Salmonella group D (sensitive to ampicillin and trimethoprim- sulfamethoxazole). Sputum culture grew penicillin-sensitive E. coli. Later, daria was found in the lungs; fluconazole was started. Patient required broad- spectrum antibiotics (initially meropenem and vancomycin), now with plans to deescalate as below. Fevers initially resolved, then recurred. Creatinine acutely increased (peak 5.25), now improved to 1.37; hemoglobin stable. Imaging notable for degenerative severe lumbar disc disease, cardiomegaly with left ventricular dysfunction and severe pulmonary hypertension, bilateral mild effusions, hepatomegaly, hepatosteatosis, and inguinal hernias. 01/31: chest x ray shows worsening right , improving left pilor interstitial opacities suggesting shifting pulmonary edema 02/01: patient is getting started on tube feeds and tolerating them and having good urine output through folley cath 02/02: creatinine at 1.03 , liver enzymes are slowly up trending on levofloxacin therapy , will continue to monitor 02/03: tolerating Cpap and awaiting for patient to awaken 02/08: start on anticoagulation for DVT in leg 02/13: started on vancomycin for fevers, staph epi in blood 02/14: methylpred stopped 02/15: rising leukocytosis 02/16: sp amputation of necrotic digits in hand Plan: -- repeat blood cultures are ngtd \--suspect leukocytosis is related to methylpred use wean as tolerated -- continue vancomycin and ceftriaxone and flagyl for 5-7 days sp operative removal of potential infected source (fingers). -- if diarrhea persists, consider c-diff testing, low overall suspicion for now. \-- Monitor for recurrent or persistent fevers; if persistent, consider drug fever, catheter-associated thrombosis, or other non-infectious etiology \-- Continue aspiration precautions \-- Monitor renal function, platelet count, and hemodynamics \-- Admit for monitoring of alcohol withdrawal and supportive care \-- Continue to evaluate and manage pain related to severe lumbar degenerative disc disease Dietary Evaluation Review Comments: 1) Initiate Nephro-Haritha @ 1 tb qd 2) If patient remains NPO > 7 days, consider EN/TPN to meet at least 75% of estimated daily needs 3) If GI route is preferred, consider Nepro CarbSteady @ 30 mL/hr goal rate as tolerated. EN regimen will provide 1296 kcals. 58g Pro, and 523 mL free H2O per 24 hrs. Goal rate will meet ~ 92% estimated daily energy needs and ~ 43% estimated daily protein needs. 4) Advance to 60g CCHO renal diet when medically feasible, pending ST approal 5) Refer to outpatient RD/CDCES for weight management 6) Follow-up with cardiology, pulmonology, nephrology, gastroenterology, and hepatology 7) Follow-up with psych social worker r/t polysubstance abuse 8) Continue to monitor I&O, labs, and skin integrity Expected Outcomes/Goals: 1) patient to receive nutrition support within 7 days of NPO status 2) labs and GI symptoms to improve 3) diet to advance 4) f/u in 2-3 days KRISTIN CABALLERO MD Feb 17, 2025 23:30
--- NOTE | 2025-02-17 23:32 | DVHPN2 ---
Progress Note - Dictate Date Seen: Feb 17, 2025 Has the PT tested + for MRSA If YES, has PT been informed?: No Medical Necessity Reason Pt with a Central, PICC or Fol: Yes The following are medically ne: Young Catheter Reason for young catheter: Strict I&O Subjective [facility] Patient seen and examined at bedside. Breathing comfortably on room air. Overnight events reviewed. vital signs Vital Sign Date Time Temp Pulse Resp B/P (MAP) Pulse Ox O2 Delivery O2 Flow Rate FiO2 02/17/25 21:54 85 128/74 02/17/25 19:21 18 100 02/17/25 19:15 Room Air 0.0 02/17/25 19:15 21 02/17/25 17:00 98.7 98.7 Total Intake and Output 02/16/25 02/16/25 02/17/25 15:00 23:00 07:00 Intake Total 300.2 ml 600 ml Output Total 650 ml Balance 300.2 ml 600 ml -650 ml medications Current Medications Medications Dose Ordered Sig/Natividad Route Start Time Stop Time Status Last Admin Dose Admin Thiamine HCl 100 mg DAILY IV 01/20/25 10:00 02/17/25 09:54 100 MG Folic Acid 1 mg/ Dextrose 50.2 ml @ 200.8 mls/ hr DAILY INJ 01/20/25 10:00 02/17/25 12:37 200.8 MLS/HR Metoclopramide HCl 5 mg Q8HR IV 01/23/25 16:30 02/17/25 21:01 5 MG Enteral Nutritional Formula 1,000 ml 50ML/HR GT 01/26/25 17:00 02/03/25 17:26 1,000 ML Sodium Chloride 10 ml QSHIFT@10,22 IV 01/28/25 22:00 02/17/25 20:50 10 ML Lactulose 30 ml DAILY PRN PO 01/30/25 07:00 01/31/25 21:39 30 ML Pantoprazole Sodium 40 mg DAILY IV 01/30/25 10:00 02/17/25 09:57 40 MG Spironolactone 25 mg DAILY PO 01/31/25 10:00 02/17/25 09:51 25 MG Acetaminophen 650 mg Q6HP PRN PO 01/31/25 07:15 02/10/25 05:44 650 MG Ipratropium [place] 0.5 mg Q4HWA NEB 02/05/25 18:00 02/17/25 19:15 0.5 MG Albuterol 2.5 mg Q4HWA NEB 02/05/25 18:00 02/17/25 19:15 2.5 MG Insulin Glargine 13 units QAM SC 02/07/25 07:00 02/16/25 06:05 13 UNITS Dextrose 50 ml UD IV 02/06/25 21:00 Carvedilol 6.25 mg Q12HR PO 02/07/25 08:00 02/17/25 21:54 6.25 MG Empaglifozin 10 mg DAILY PO 02/07/25 10:00 02/17/25 09:51 10 MG Lisinopril 10 mg DAILY PO 02/08/25 10:00 02/17/25 09:51 10 MG Diagnostic Test (Pha) 1 strip Q6HR 02/08/25 18:00 02/17/25 19:27 1 STRIP Insulin Human Lispro Q6HR SC 02/08/25 18:00 02/16/25 12:20 1 UNITS Hydromorphone HCl 0.25 mg Q4HPRN PRN IV 02/09/25 11:00 02/15/25 13:28 0.25 MG Allopurinol 100 mg DAILY PO 02/11/25 10:00 02/17/25 09:51 100 MG Vancomycin HCl 0 ml @ 0 mls/hr UD IV 02/11/25 11:45 Cancel Vancomycin HCl 100 ml @ 100 mls/hr Q8H IV 02/13/25 23:00 Cancel Ketorolac Tromethamine 15 mg Q12HR IV 02/14/25 22:00 02/19/25 21:59 02/17/25 22:00 15 MG Colchicine 0.6 mg DAILY PO 02/15/25 10:00 02/17/25 09:51 0.6 MG Acetaminophen/ Hydrocodone Bitart 1 tab Q6HP PRN PO 02/15/25 15:00 02/17/25 20:50 1 TAB Vancomycin HCl 250 ml @ 250 mls/hr Q1H IV 02/16/25 08:15 02/16/25 10:14 UNV Ceftriaxone Sodium/Dextrose 50 ml @ 50 mls/hr DAILY IV 02/16/25 20:07 02/17/25 12:27 50 MLS/HR Metronidazole 500 mg Q8HR PO 02/16/25 22:00 02/17/25 21:01 500 MG objective Gen.: Patient lying in bed in no apparent distress. Breathing on room air. Head: Normocephalic, atraumatic. Eyes: EOMI/PERRLA. Ears: Normal hearing. Normal anatomy. Neck/trachea: Trachea midline, supple. Nose: Normal external anatomy. Mouth: Moist mucous membranes. Chest: Decreased air entry bilaterally. No wheezing or rhonchi. Cardiovascular: Positive S1, positive S2. Regular rate and rhythm. Abdomen: Positive bowel sounds in all 4 quadrants. Soft, non-tender, non- distended. : Deferred. Rectal: Deferred. Skin: Warm, dry. Intact. Right under 2nd, 3rd, 4th and 5th fingers s/p amputation at the level of PIP joint. Extremities: 2+ radial pulses bilaterally. No lower extremity edema. Neuro: Awake, alert, oriented x3. No gross motor or sensory deficits. Cranial nerves II through XII intact. Gait not assessed. laboratory and microbiology Laboratory Tests 02/17/25 04:48 02/16/25 05:43 Test 02/16/25 05:43 Range/Units Serum Glucose 138 H 74-106 mg/dL Assessment/Plan Impression: Acute hypoxic respiratory failure Sepsis Hx of alcohol abuse ESRD, on hemodialysis Obesity Events: Patient currently on room air Supplemental oxygen PRN. Continue antibiotics WBC of 14.1 K. Blood cultures grew Staph epidermidis Repeat blood cultures no growth for 72 hours + 24 hours. Continue bronchodilators S/p digit amputation by Vascular Surgery Vascular Surgery recommendations appreciated. Continue wound care. Hemodialysis per Nephrology Monitor renal function Monitor electrolytes. Supplement as necessary. Monitor ins and outs. Continue oral feeds. S/p therapeutic bronchoscopy with RML BAL (01/23); cleared mucous plugging from L6-L10 and R1-R10. Sent for bacterial, fungal and viral cultures - follow up results. Limited chest ultrasound on 01/23 revealed compressive atelectasis. Consolidated lung. No pleural effusion noted. Please see separate procedure notes for details Labs and imaging reviewed. Rest of plan as noted below. Plan: S/p extubation on 02/05/25. Supplemental oxygen PRN Titrate to keep sats above 92% Antibiotics. F/u cultures Bronchodilators S/p right radial thrombectomy by Vascular Surgery S/p digit amputation by Vascular Surgery. Wound care Monitor hemoglobin Accu-Cheks, ISS PRN. HD per Nephrology Monitor renal function Monitor electrolytes. Supplement as necessary. Monitor ins and outs. Maintain euvolemia Diet and lifestyle modifications for weight reduction Obesity - complicates all care GI/DVT prophylaxis. Prognosis: Poor given patient's multiple co-morbidities. Rest of plan per hospitalist and other consultants. Thank you Dr. Dai for allowing me to participate in this patient's care. Further recommendations will depend on the patient's clinical course. Please do not hesitate to contact me if you have any questions or concerns. This medical document was created using an electronic medical record system with [employer] dictation system. Although these documentations are being carefully reviewed, there may still be some phonetic and typographical changes. The errors are purely typographical, due to imperfection on the software program, and do not reflect any compromise in the patient's medical care. Dietary Evaluation Review Comments: 1) Initiate Nephro-Haritha @ 1 tb qd 2) If patient remains NPO > 7 days, consider EN/TPN to meet at least 75% of estimated daily needs 3) If GI route is preferred, consider Nepro CarbSteady @ 30 mL/hr goal rate as tolerated. EN regimen will provide 1296 kcals. 58g Pro, and 523 mL free H2O per 24 hrs. Goal rate will meet ~ 92% estimated daily energy needs and ~ 43% estimated daily protein needs. 4) Advance to 60g CCHO renal diet when medically feasible, pending ST approal 5) Refer to outpatient RD/CDCES for weight management 6) Follow-up with cardiology, pulmonology, nephrology, gastroenterology, and hepatology 7) Follow-up with manager social media r/t polysubstance abuse 8) Continue to monitor I&O, labs, and skin integrity Expected Outcomes/Goals: 1) patient to receive nutrition support within 7 days of NPO status 2) labs and GI symptoms to improve 3) diet to advance 4) f/u in 2-3 days Plan discussed with: Patient, Other (DENISSE Haider) TIM GE MD Feb 17, 2025 23:32
[2025-02-18] VITALS (21 sets, daily range): BP systolic 114–135; BP diastolic 73–94; PULSE 71–82; RESP 16–19; TEMP 97.9–98.8; O2SAT 96–100
--- NOTE | 2025-02-18 19:07 | DVHPN2 ---
[facility] chart is reviewed and discussed with the nurse. [facility] essentially [facility]. Apparently no bed available therefore he remains in the hospital. Patient is clinically stable. Reviewed: Care Plan, H&P, Labs, Medications, Previous Orders, Radiology, Other (Consultations) Changes from previous H/P or p: No Changes Objective Vitals Vital Signs Date Time Temp Pulse Resp B/P (MAP) Pulse Ox O2 Delivery O2 Flow Rate FiO2 02/18/25 17:00 97.9 72 18 114/73 (87) 97 97.9 02/18/25 13:26 Room Air* 0 21 Intake/Output Intake and Output 02/18/25 07:00 Intake Total 3030.2 ml Output Total 3170 ml Balance -139.8 ml Intake Oral 2680 ml IV Total 350.2 ml Output Urine Total 3170 ml General Appearance: Other (Intubated and sedated) HEENT: Atraumatic, Other (Intubated) Neck: Other (Central lines at both sides) Lungs: Other (Mechanical ventilation sounds) Cardiovascular: Regular rate, Normal S1, Normal S2 Abdomen: Normal bowel sounds, Soft Genitourinary: Other (Bates's catheter in place) Extremities: Other (Right hand with dusky color; slightly warm) Neuro: Other (Sedated) Skin: Other (Refer to nursing documentation for details) Psych/Mental Status: Other (Sedated) Medications Current Medications Medications Dose Ordered Sig/Natividad Route Start Time Stop Time Status Last Admin Dose Admin Thiamine HCl 100 mg DAILY IV 01/20/25 10:00 02/18/25 10:06 100 MG Folic Acid 1 mg/ Dextrose 50.2 ml @ 200.8 mls/ hr DAILY INJ 01/20/25 10:00 02/18/25 13:28 200.8 MLS/HR Metoclopramide HCl 5 mg Q8HR IV 01/23/25 16:30 02/18/25 13:47 5 MG Enteral Nutritional Formula 1,000 ml 50ML/HR GT 01/26/25 17:00 02/03/25 17:26 1,000 ML Sodium Chloride 10 ml QSHIFT@10,22 IV 01/28/25 22:00 02/18/25 10:07 10 ML Lactulose 30 ml DAILY PRN PO 01/30/25 07:00 01/31/25 21:39 30 ML Pantoprazole Sodium 40 mg DAILY IV 01/30/25 10:00 02/18/25 10:02 40 MG Spironolactone 25 mg DAILY PO 01/31/25 10:00 02/18/25 10:04 25 MG Acetaminophen 650 mg Q6HP PRN PO 01/31/25 07:15 02/18/25 13:48 650 MG Ipratropium [place] 0.5 mg Q4HWA [facility] 02/05/25 18:00 02/18/25 19:03 0.5 MG Albuterol 2.5 mg Q4HWA [facility] 02/05/25 18:00 02/18/25 19:03 2.5 MG Insulin Glargine 13 units QAM SC 02/07/25 07:00 02/18/25 06:40 13 UNITS Dextrose 50 ml UD IV 02/06/25 21:00 Carvedilol 6.25 mg Q12HR PO 02/07/25 08:00 02/18/25 10:06 6.25 MG Empaglifozin 10 mg DAILY PO 02/07/25 10:00 02/18/25 10:04 10 MG Lisinopril 10 mg DAILY PO 02/08/25 10:00 02/18/25 10:06 10 MG Diagnostic Test (Pha) 1 strip Q6HR 02/08/25 18:00 02/18/25 18:30 1 STRIP Insulin Human Lispro Q6HR SC 02/08/25 18:00 02/16/25 12:20 1 UNITS Allopurinol 100 mg DAILY PO 02/11/25 10:00 02/18/25 10:04 100 MG Vancomycin HCl 0 ml @ 0 mls/hr UD IV 02/11/25 11:45 Cancel Vancomycin HCl 100 ml @ 100 mls/hr Q8H IV 02/13/25 23:00 Cancel Ketorolac Tromethamine 15 mg Q12HR IV 02/14/25 22:00 02/19/25 21:59 02/18/25 10:04 15 MG Colchicine 0.6 mg DAILY PO 02/15/25 10:00 02/18/25 10:04 0.6 MG Acetaminophen/ Hydrocodone Bitart 1 tab Q6HP PRN PO 02/15/25 15:00 02/18/25 17:05 1 TAB Vancomycin HCl 250 ml @ 250 mls/hr Q1H IV 02/16/25 08:15 02/16/25 10:14 UNV Ceftriaxone Sodium/Dextrose 50 ml @ 50 mls/hr DAILY IV 02/16/25 20:07 02/18/25 10:03 50 MLS/HR Metronidazole 500 mg Q8HR PO 02/16/25 22:00 02/18/25 13:48 500 MG Laboratory Results Laboratory Tests 02/16/25 05:43 02/17/25 04:48 Urinalysis Test 02/10/25 19:00 Urine Color Light-yellow (Yellow) Urine Clarity Clear (Clear) Urine pH 6.0 (5.0-9.0) Urine Specific [place] 1.019 (1.001-1.035) Urine Protein Negative (Negative) Urine Ketones Negative (Negative) Urine Blood 2+ /uL (Negative) H Urine Nitrite Negative (Negative) Urine Bilirubin Negative (Negative) Urine Urobilinogen Normal mg/dL (Negative) Urine Leukocyte Esterase Negative /uL (Negative) Urine RBC 16 /hpf (0 - 3) Urine Microscopic WBC 2 /HPF (0-3) Urine Squamous Epithelial Cells None seen /hpf (<5) Urine Bacteria Few /hpf (None Seen) H Urine Sperm Present /hpf (None Seen) Urine Glucose 4+ mg/dL (Normal) H Microbiology Microbiology Date/Time Source Procedure Growth Status 02/15/25 17:05 Blood Blood Culture - Preliminary NO GROWTH AFTER 72 HOURS OF INCUBATION. Resulted 02/10/25 19:00 Voided Urine Urine Culture - Final Complete 01/29/25 11:35 Sputum Gram Stain - Final Complete 01/29/25 11:35 Sputum Respiratory Culture - Final Complete 01/23/25 20:14 Lung - Final Resulted 01/23/25 20:14 Lung - Final Resulted 01/23/25 20:14 Lung - Preliminary Resulted 01/23/25 20:14 Lung - Preliminary Resulted 01/23/25 20:14 Lung - Final See Separate Report... Resulted Assessment/Plan Assessment/Plan 1. Upper GI bleeding resolved/stable * No new bleeding; NG aspirate clear; H/H stable. 2. Alcoholic cirrhosis with portal hypertension, chronic liver disease * MELD remains high; LFTs elevated; continue monitoring. 2.Sepsis associated hepatic dysfunction 3. Critical illness with gastroparesis improving with prokinetic therapy. 4. Constipation persistent despite regimen, possibly opioid/sedation related. 5. Sepsis with WBC spike on antibiotics; respiratory culture positive for Lelo (likely colonization vs. infection). Clinically stable. No changes to present management. [facility]. [facility]. Discussed with the nurse. Plan discussed with: Other Date of Service: Feb 18, 2025 Billing Provider: DHAVAL BARNETT MD Common Visit Codes: [id number] INP/OBS CARE(LOW) DHAVAL BARNETT MD Feb 18, 2025 19:07
--- NOTE | 2025-02-18 23:53 | DVHPN2 ---
Progress Note - Dictate Date Seen: Feb 18, 2025 Has the PT tested + for MRSA If YES, has PT been informed?: No Medical Necessity Reason Pt with a Central, PICC or Fol: Yes The following are medically ne: Young Catheter Reason for young catheter: Strict I&O Subjective [facility] Patient seen and examined at bedside. Breathing comfortably on room air. Overnight events reviewed. vital signs Vital Sign Date Time Temp Pulse Resp B/P (MAP) Pulse Ox O2 Delivery O2 Flow Rate FiO2 02/18/25 22:37 76 135/85 02/18/25 22:31 18 100 02/18/25 22:25 Room Air 0.0 02/18/25 22:25 21 02/18/25 21:00 98.0 98.0 Total Intake and Output 02/17/25 02/17/25 02/18/25 15:00 23:00 07:00 Intake Total 350.2 ml 1920 ml 760 ml Output Total 1800 ml 1370 ml Balance 350.2 ml 120 ml -610 ml medications Current Medications Medications Dose Ordered Sig/Natividad Route Start Time Stop Time Status Last Admin Dose Admin Thiamine HCl 100 mg DAILY IV 01/20/25 10:00 02/18/25 10:06 100 MG Folic Acid 1 mg/ Dextrose 50.2 ml @ 200.8 mls/ hr DAILY INJ 01/20/25 10:00 02/18/25 13:28 200.8 MLS/HR Metoclopramide HCl 5 mg Q8HR IV 01/23/25 16:30 02/18/25 22:47 5 MG Enteral Nutritional Formula 1,000 ml 50ML/HR GT 01/26/25 17:00 02/03/25 17:26 1,000 ML Sodium Chloride 10 ml QSHIFT@10,22 IV 01/28/25 22:00 02/18/25 22:37 10 ML Lactulose 30 ml DAILY PRN PO 01/30/25 07:00 01/31/25 21:39 30 ML Pantoprazole Sodium 40 mg DAILY IV 01/30/25 10:00 02/18/25 10:02 40 MG Spironolactone 25 mg DAILY PO 01/31/25 10:00 02/18/25 10:04 25 MG Acetaminophen 650 mg Q6HP PRN PO 01/31/25 07:15 02/18/25 22:36 650 MG Ipratropium [place] 0.5 mg Q4HWA [facility] 02/05/25 18:00 02/18/25 22:25 0.5 MG Albuterol 2.5 mg Q4HWA NEB 02/05/25 18:00 02/18/25 22:25 2.5 MG Insulin Glargine 13 units QAM SC 02/07/25 07:00 02/18/25 06:40 13 UNITS Dextrose 50 ml UD IV 02/06/25 21:00 Carvedilol 6.25 mg Q12HR PO 02/07/25 08:00 02/18/25 22:37 6.25 MG Empaglifozin 10 mg DAILY PO 02/07/25 10:00 02/18/25 10:04 10 MG Lisinopril 10 mg DAILY PO 02/08/25 10:00 02/18/25 10:06 10 MG Diagnostic Test (Pha) 1 strip Q6HR 02/08/25 18:00 02/18/25 23:05 1 STRIP Insulin Human Lispro Q6HR SC 02/08/25 18:00 02/16/25 12:20 1 UNITS Allopurinol 100 mg DAILY PO 02/11/25 10:00 02/18/25 10:04 100 MG Vancomycin HCl 0 ml @ 0 mls/hr UD IV 02/11/25 11:45 Cancel Vancomycin HCl 100 ml @ 100 mls/hr Q8H IV 02/13/25 23:00 Cancel Ketorolac Tromethamine 15 mg Q12HR IV 02/14/25 22:00 02/19/25 21:59 02/18/25 22:52 15 MG Colchicine 0.6 mg DAILY PO 02/15/25 10:00 02/18/25 10:04 0.6 MG Acetaminophen/ Hydrocodone Bitart 1 tab Q6HP PRN PO 02/15/25 15:00 02/18/25 17:05 1 TAB Vancomycin HCl 250 ml @ 250 mls/hr Q1H IV 02/16/25 08:15 02/16/25 10:14 UNV Ceftriaxone Sodium/Dextrose 50 ml @ 50 mls/hr DAILY IV 02/16/25 20:07 02/18/25 10:03 50 MLS/HR Metronidazole 500 mg Q8HR PO 02/16/25 22:00 02/18/25 22:37 500 MG objective Gen.: Patient lying in bed in no apparent distress. Breathing on room air. Head: Normocephalic, atraumatic. Eyes: EOMI/PERRLA. Ears: Normal hearing. Normal anatomy. Neck/trachea: Trachea midline, supple. Nose: Normal external anatomy. Mouth: Moist mucous membranes. Chest: Decreased air entry bilaterally. No wheezing or rhonchi. Cardiovascular: Positive S1, positive S2. Regular rate and rhythm. Abdomen: Positive bowel sounds in all 4 quadrants. Soft, non-tender, non- distended. : Deferred. Rectal: Deferred. Skin: Warm, dry. Intact. Right under 2nd, 3rd, 4th and 5th fingers s/p amputation at the level of PIP joint. Extremities: 2+ radial pulses bilaterally. No lower extremity edema. Neuro: Awake, alert, oriented x3. No gross motor or sensory deficits. Cranial nerves II through XII intact. Gait not assessed. laboratory and microbiology Laboratory Tests 02/17/25 04:48 02/16/25 05:43 Test 02/16/25 05:43 Range/Units Serum Glucose 138 H 74-106 mg/dL Assessment/Plan Impression: Acute hypoxic respiratory failure Sepsis Hx of alcohol abuse ESRD, on hemodialysis Obesity Events: Patient remains on room air Supplemental oxygen PRN. Continue antibiotics WBC of 14.1 K. Blood cultures grew Staph epidermidis Repeat blood cultures no growth for 72 hours + 48 hours. Bronchodilators PRN Continue abx S/p digit amputation by Vascular Surgery Vascular Surgery recommendations appreciated. Continue wound care. Hemodialysis per Nephrology Monitor renal function Monitor electrolytes. Supplement as necessary. Monitor ins and outs. Continue physical therapy. Continue oral feeds. Awaiting SNF placement. S/p therapeutic bronchoscopy with RML BAL (01/23); cleared mucous plugging from L6-L10 and R1-R10. Sent for bacterial, fungal and viral cultures - follow up results. Limited chest ultrasound on 01/23 revealed compressive atelectasis. Consolidated lung. No pleural effusion noted. Please see separate procedure notes for details Labs and imaging reviewed. Rest of plan as noted below. Plan: S/p extubation on 02/05/25. Supplemental oxygen PRN Titrate to keep sats above 92% Antibiotics. F/u cultures Bronchodilators PRN S/p right radial thrombectomy by Vascular Surgery S/p digit amputation by Vascular Surgery. Wound care Pain control Avoid oversedation Monitor hemoglobin Accu-Cheks, ISS PRN. HD per Nephrology Monitor renal function Monitor electrolytes. Supplement as necessary. Monitor ins and outs. Maintain euvolemia Diet and lifestyle modifications for weight reduction Obesity - complicates all care GI/DVT prophylaxis. Prognosis: Poor given patient's multiple co-morbidities. Rest of plan per hospitalist and other consultants. Thank you Dr. Dai for allowing me to participate in this patient's care. Further recommendations will depend on the patient's clinical course. Please do not hesitate to contact me if you have any questions or concerns. This medical document was created using an electronic medical record system with [employer] dictation system. Although these documentations are being carefully reviewed, there may still be some phonetic and typographical changes. The errors are purely typographical, due to imperfection on the software program, and do not reflect any compromise in the patient's medical care. Dietary Evaluation Review Comments: 1) Initiate Nephro-Haritha @ 1 tb qd 2) If patient remains NPO > 7 days, consider EN/TPN to meet at least 75% of estimated daily needs 3) If GI route is preferred, consider Nepro CarbSteady @ 30 mL/hr goal rate as tolerated. EN regimen will provide 1296 kcals. 58g Pro, and 523 mL free H2O per 24 hrs. Goal rate will meet ~ 92% estimated daily energy needs and ~ 43% estimated daily protein needs. 4) Advance to 60g CCHO renal diet when medically feasible, pending ST approal 5) Refer to outpatient RD/CDCES for weight management 6) Follow-up with cardiology, pulmonology, nephrology, gastroenterology, and hepatology 7) Follow-up with social science professor r/t polysubstance abuse 8) Continue to monitor I&O, labs, and skin integrity Expected Outcomes/Goals: 1) patient to receive nutrition support within 7 days of NPO status 2) labs and GI symptoms to improve 3) diet to advance 4) f/u in 2-3 days Plan discussed with: Patient, Other (DENISSE Haider) TIM GE MD Feb 18, 2025 23:53
[2025-02-19] VITALS (12 sets, daily range): BP systolic 116–137; BP diastolic 79–91; PULSE 77–84; RESP 16–20; TEMP 97.7–98.5; O2SAT 94–99
[2025-02-19] MEDS ORDERED: IPRATROPIUM BROM 0.5 MG/2.5ML INH SOL NEB PRN (06:00)
[2025-02-19] MEDS ORDERED: ALBUTEROL SULF 2.5 MG/0.5ML(0.5%) NEB SOLN NEB PRN (06:00)
--- NOTE | 2025-02-19 15:34 | DVHPN2 ---
Consult Progress Note Objective vital signs Vital Sign Date Time Temp Pulse Resp B/P (MAP) Pulse Ox O2 Delivery O2 Flow Rate FiO2 02/19/25 13:00 98.2 80 20 120/85 (97) 95 98.2 02/19/25 07:30 Nasal Cannula* 2 28 Total Intake and Output 02/18/25 02/18/25 02/19/25 15:00 23:00 07:00 Intake Total 50 ml 50.2 ml 200 ml Balance 50 ml 50.2 ml 200 ml medications Current Medications Medications Dose Ordered Sig/Natividad Route Start Time Stop Time Status Last Admin Dose Admin Metoclopramide HCl 5 mg Q8HR IV 01/23/25 16:30 02/19/25 13:58 5 MG Enteral Nutritional Formula 1,000 ml 50ML/HR GT 01/26/25 17:00 02/03/25 17:26 1,000 ML Sodium Chloride 10 ml QSHIFT@10,22 IV 01/28/25 22:00 02/19/25 09:08 10 ML Lactulose 30 ml DAILY PRN PO 01/30/25 07:00 01/31/25 21:39 30 ML Pantoprazole Sodium 40 mg DAILY IV 01/30/25 10:00 02/19/25 09:06 40 MG Spironolactone 25 mg DAILY PO 01/31/25 10:00 02/19/25 09:07 25 MG Acetaminophen 650 mg Q6HP PRN PO 01/31/25 07:15 02/19/25 13:59 650 MG Insulin Glargine 13 units QAM SC 02/07/25 07:00 02/18/25 06:40 13 UNITS Dextrose 50 ml UD IV 02/06/25 21:00 Carvedilol 6.25 mg Q12HR PO 02/07/25 08:00 02/19/25 09:07 6.25 MG Empaglifozin 10 mg DAILY PO 02/07/25 10:00 02/19/25 09:07 10 MG Lisinopril 10 mg DAILY PO 02/08/25 10:00 02/19/25 09:07 10 MG Diagnostic Test (Pha) 1 strip Q6HR 02/08/25 18:00 02/19/25 13:41 1 STRIP Insulin Human Lispro Q6HR SC 02/08/25 18:00 02/19/25 11:38 2 UNITS Allopurinol 100 mg DAILY PO 02/11/25 10:00 02/19/25 09:07 100 MG Vancomycin HCl 0 ml @ 0 mls/hr UD IV 02/11/25 11:45 Cancel Vancomycin HCl 100 ml @ 100 mls/hr Q8H IV 02/13/25 23:00 Cancel Ketorolac Tromethamine 15 mg Q12HR IV 02/14/25 22:00 02/19/25 21:59 02/19/25 09:06 15 MG Colchicine 0.6 mg DAILY PO 02/15/25 10:00 02/19/25 09:08 0.6 MG Acetaminophen/ Hydrocodone Bitart 1 tab Q6HP PRN PO 02/15/25 15:00 02/19/25 11:32 1 TAB Vancomycin HCl 250 ml @ 250 mls/hr Q1H IV 02/16/25 08:15 02/16/25 10:14 UNV Ceftriaxone Sodium/Dextrose 50 ml @ 50 mls/hr DAILY IV 02/16/25 20:07 02/19/25 11:33 50 MLS/HR Metronidazole 500 mg Q8HR PO 02/16/25 22:00 02/19/25 13:59 500 MG Albuterol 2.5 mg Q4HPRN PRN NEB 02/19/25 06:00 Ipratropium [place] 0.5 mg Q4HP PRN NEB 02/19/25 06:00 laboratory and microbiology Laboratory Tests 02/17/25 04:48 02/16/25 05:43 Test 02/16/25 05:43 Range/Units Serum Glucose 138 H 74-106 mg/dL Problem List/Assessment/Plan Problem List/Assessment/Plan ASSESSMENT AND PLAN: ID Problem List: \-- Cirrhosis and septic shock secondary to Salmonella bacteremia \-- E. coli aspiration pneumonia \-- Acute kidney injury, now improving \-- Thrombocytopenia (platelets low, now improving) \-- Severe degenerative lumbar disc disease with foraminal stenosis \-- Chronic alcohol dependence \-- Gout \-- Constipation \-- Poor medical follow-up Assessment: This is a 60-year-old male with a history of gout (not on any medications), chronic heavy alcohol use, and no surgical history, who presented with severe back pain and evidence of systemic infection with complicated clinical course. Patient was admitted for possible complicated urinary tract infection/urosepsis/pyelonephritis, acute kidney injury, and alcohol withdrawal. Notable findings include: severe thrombocytopenia on admission (platelets 53), initial lactic acidosis, and persistently elevated white count. Blood cultures grew Salmonella group D (sensitive to ampicillin and trimethoprim- sulfamethoxazole). Sputum culture grew penicillin-sensitive E. coli. Later, daria was found in the lungs; fluconazole was started. Patient required broad- spectrum antibiotics (initially meropenem and vancomycin), now with plans to deescalate as below. Fevers initially resolved, then recurred. Creatinine acutely increased (peak 5.25), now improved to 1.37; hemoglobin stable. Imaging notable for degenerative severe lumbar disc disease, cardiomegaly with left ventricular dysfunction and severe pulmonary hypertension, bilateral mild effusions, hepatomegaly, hepatosteatosis, and inguinal hernias. 01/31: chest x ray shows worsening right , improving left pilor interstitial opacities suggesting shifting pulmonary edema 02/01: patient is getting started on tube feeds and tolerating them and having good urine output through folley cath 02/02: creatinine at 1.03 , liver enzymes are slowly up trending on levofloxacin therapy , will continue to monitor 02/03: tolerating Cpap and awaiting for patient to awaken 02/08: start on anticoagulation for DVT in leg 02/13: started on vancomycin for fevers, staph epi in blood 02/14: methylpred stopped 02/15: rising leukocytosis 02/16: sp amputation of necrotic digits in hand Plan: -- repeat blood cultures are ngtd \--suspect leukocytosis is related to methylpred use wean as tolerated -- continue vancomycin and ceftriaxone and flagyl for 5-7 days sp operative removal of potential infected source (fingers). -- if diarrhea persists, consider c-diff testing, low overall suspicion for now. \-- Monitor for recurrent or persistent fevers; if persistent, consider drug fever, catheter-associated thrombosis, or other non-infectious etiology \-- Continue aspiration precautions \-- Monitor renal function, platelet count, and hemodynamics \-- Admit for monitoring of alcohol withdrawal and supportive care \-- Continue to evaluate and manage pain related to severe lumbar degenerative disc disease Dietary Evaluation Review Comments: 1) Initiate Nephro-Haritha @ 1 tb qd 2) If patient remains NPO > 7 days, consider EN/TPN to meet at least 75% of estimated daily needs 3) If GI route is preferred, consider Nepro CarbSteady @ 30 mL/hr goal rate as tolerated. EN regimen will provide 1296 kcals. 58g Pro, and 523 mL free H2O per 24 hrs. Goal rate will meet ~ 92% estimated daily energy needs and ~ 43% estimated daily protein needs. 4) Advance to 60g CCHO renal diet when medically feasible, pending ST approal 5) Refer to outpatient RD/CDCES for weight management 6) Follow-up with cardiology, pulmonology, nephrology, gastroenterology, and hepatology 7) Follow-up with social media marketing specialist r/t polysubstance abuse 8) Continue to monitor I&O, labs, and skin integrity Expected Outcomes/Goals: 1) patient to receive nutrition support within 7 days of NPO status 2) labs and GI symptoms to improve 3) diet to advance 4) f/u in 2-3 days KRISTIN CABALLERO MD Feb 19, 2025 15:34
--- NOTE | 2025-02-19 17:25 | DVHPN2 ---
Subjective Cross covering for [facility] today. Patient's chart is reviewed and discussed with the nurse. Patient essentially waiting for care home facility bed. Still no bed available. Reviewed: Care Plan, H&P, Labs, Medications, Previous Orders, Radiology, Other (Consultations) Changes from previous H/P or p: No Changes Objective Vitals Vital Signs Date Time Temp Pulse Resp B/P (MAP) Pulse Ox O2 Delivery O2 Flow Rate FiO2 02/19/25 13:00 98.2 80 20 120/85 (97) 95 98.2 02/19/25 07:30 Nasal Cannula* 2 28 Intake/Output Intake and Output 02/19/25 07:00 Intake Total 300.2 ml Balance 300.2 ml Intake Oral 200 ml IV Total 100.2 ml # Voids 2 General Appearance: Other (Intubated and sedated) HEENT: Atraumatic, Other (Intubated) Neck: Other (Central lines at both sides) Lungs: Other (Mechanical ventilation sounds) Cardiovascular: Regular rate, Normal S1, Normal S2 Abdomen: Normal bowel sounds, Soft Genitourinary: Other (Bates's catheter in place) Extremities: Other (Right hand with dusky color; slightly warm) Neuro: Other (Sedated) Skin: Other (Refer to nursing documentation for details) Psych/Mental Status: Other (Sedated) Medications Current Medications Medications Dose Ordered Sig/Natividad Route Start Time Stop Time Status Last Admin Dose Admin Metoclopramide HCl 5 mg Q8HR IV 01/23/25 16:30 02/19/25 13:58 5 MG Enteral Nutritional Formula 1,000 ml 50ML/HR GT 01/26/25 17:00 02/03/25 17:26 1,000 ML Sodium Chloride 10 ml QSHIFT@10,22 IV 01/28/25 22:00 02/19/25 09:08 10 ML Lactulose 30 ml DAILY PRN PO 01/30/25 07:00 01/31/25 21:39 30 ML Pantoprazole Sodium 40 mg DAILY IV 01/30/25 10:00 02/19/25 09:06 40 MG Spironolactone 25 mg DAILY PO 01/31/25 10:00 02/19/25 09:07 25 MG Acetaminophen 650 mg Q6HP PRN PO 01/31/25 07:15 02/19/25 13:59 650 MG Insulin Glargine 13 units QAM SC 02/07/25 07:00 02/18/25 06:40 13 UNITS Dextrose 50 ml UD IV 02/06/25 21:00 Carvedilol 6.25 mg Q12HR PO 02/07/25 08:00 02/19/25 09:07 6.25 MG Empaglifozin 10 mg DAILY PO 02/07/25 10:00 02/19/25 09:07 10 MG Lisinopril 10 mg DAILY PO 02/08/25 10:00 02/19/25 09:07 10 MG Diagnostic Test (Pha) 1 strip Q6HR 02/08/25 18:00 02/19/25 13:41 1 STRIP Insulin Human Lispro Q6HR SC 02/08/25 18:00 02/19/25 11:38 2 UNITS Allopurinol 100 mg DAILY PO 02/11/25 10:00 02/19/25 09:07 100 MG Vancomycin HCl 0 ml @ 0 mls/hr UD IV 02/11/25 11:45 Cancel Vancomycin HCl 100 ml @ 100 mls/hr Q8H IV 02/13/25 23:00 Cancel Ketorolac Tromethamine 15 mg Q12HR IV 02/14/25 22:00 02/19/25 21:59 02/19/25 09:06 15 MG Colchicine 0.6 mg DAILY PO 02/15/25 10:00 02/19/25 09:08 0.6 MG Acetaminophen/ Hydrocodone Bitart 1 tab Q6HP PRN PO 02/15/25 15:00 02/19/25 16:58 1 TAB Vancomycin HCl 250 ml @ 250 mls/hr Q1H IV 02/16/25 08:15 02/16/25 10:14 UNV Ceftriaxone Sodium/Dextrose 50 ml @ 50 mls/hr DAILY IV 02/16/25 20:07 02/19/25 11:33 50 MLS/HR Metronidazole 500 mg Q8HR PO 02/16/25 22:00 02/19/25 13:59 500 MG Albuterol 2.5 mg Q4HPRN PRN NEB 02/19/25 06:00 Ipratropium [place] 0.5 mg Q4HP PRN NEB 02/19/25 06:00 Laboratory Results Laboratory Tests 02/16/25 05:43 02/17/25 04:48 Urinalysis Test 02/10/25 19:00 Urine Color Light-yellow (Yellow) Urine Clarity Clear (Clear) Urine pH 6.0 (5.0-9.0) Urine Specific Anita 1.019 (1.001-1.035) Urine Protein Negative (Negative) Urine Ketones Negative (Negative) Urine Blood 2+ /uL (Negative) H Urine Nitrite Negative (Negative) Urine Bilirubin Negative (Negative) Urine Urobilinogen Normal mg/dL (Negative) Urine Leukocyte Esterase Negative /uL (Negative) Urine RBC 16 /hpf (0 - 3) Urine Microscopic WBC 2 /HPF (0-3) Urine Squamous Epithelial Cells None seen /hpf (<5) Urine Bacteria Few /hpf (None Seen) H Urine Sperm Present /hpf (None Seen) Urine Glucose 4+ mg/dL (Normal) H Microbiology Microbiology Date/Time Source Procedure Growth Status 02/15/25 17:05 Blood Blood Culture - Preliminary NO GROWTH AFTER 72 HOURS OF INCUBATION. Resulted 02/10/25 19:00 Voided Urine Urine Culture - Final Complete 01/29/25 11:35 Sputum Gram Stain - Final Complete 01/29/25 11:35 Sputum Respiratory Culture - Final Complete 01/23/25 20:14 Lung - Final Resulted 01/23/25 20:14 Lung - Final Resulted 01/23/25 20:14 Lung - Preliminary Resulted 01/23/25 20:14 Lung - Preliminary Resulted 01/23/25 20:14 Lung - Final See Separate Report... Resulted Assessment/Plan Assessment/Plan 1. Upper GI bleeding resolved/stable * No new bleeding; NG aspirate clear; H/H stable. 2. Alcoholic cirrhosis with portal hypertension, chronic liver disease * MELD remains high; LFTs elevated; continue monitoring. 2.Sepsis associated hepatic dysfunction 3. Critical illness with gastroparesis improving with prokinetic therapy. 4. Constipation persistent despite regimen, possibly opioid/sedation related. 5. Sepsis with WBC spike on antibiotics; respiratory culture positive for Lelo (likely colonization vs. infection). Clinically stable. No changes to present management. Waiting for care home facility bed placement. He is already discharged to care home once bed available. Discussed with the nurse. Plan discussed with: Other Date of Service: Feb 19, 2025 Billing Provider: DHAVAL BARNETT MD Common Visit Codes: 87362-EAXECTAQAY INP/OBS CARE(MOD) DHAVAL BARNETT MD Feb 19, 2025 17:25
--- NOTE | 2025-02-20 00:03 | DVHPN2 ---
Progress Note - Dictate Date Seen: Feb 19, 2025 Has the PT tested + for MRSA If YES, has PT been informed?: No Medical Necessity Reason Pt with a Central, PICC or Fol: Yes The following are medically ne: Young Catheter Reason for young catheter: Strict I&O Subjective [facility] Patient seen and examined at bedside. Breathing comfortably on room air. Overnight events reviewed. vital signs Vital Sign Date Time Temp Pulse Resp B/P (MAP) Pulse Ox O2 Delivery O2 Flow Rate FiO2 02/19/25 21:58 63 153/74 02/19/25 20:53 98.2 16 98 98.2 02/19/25 20:00 Nasal Cannula* 2 28 Total Intake and Output 02/19/25 02/19/25 02/20/25 15:00 23:00 07:00 Intake Total 218.2 ml Balance 218.2 ml medications Current Medications Medications Dose Ordered Sig/Natividad Route Start Time Stop Time Status Last Admin Dose Admin Metoclopramide HCl 5 mg Q8HR IV 01/23/25 16:30 02/19/25 22:07 5 MG Enteral Nutritional Formula 1,000 ml 50ML/HR GT 01/26/25 17:00 02/03/25 17:26 1,000 ML Sodium Chloride 10 ml QSHIFT@10,22 IV 01/28/25 22:00 02/19/25 21:54 10 ML Lactulose 30 ml DAILY PRN PO 01/30/25 07:00 01/31/25 21:39 30 ML Pantoprazole Sodium 40 mg DAILY IV 01/30/25 10:00 02/19/25 09:06 40 MG Spironolactone 25 mg DAILY PO 01/31/25 10:00 02/19/25 09:07 25 MG Acetaminophen 650 mg Q6HP PRN PO 01/31/25 07:15 02/19/25 21:55 650 MG Insulin Glargine 13 units QAM SC 02/07/25 07:00 02/18/25 06:40 13 UNITS Dextrose 50 ml UD IV 02/06/25 21:00 Carvedilol 6.25 mg Q12HR PO 02/07/25 08:00 02/19/25 21:58 6.25 MG Empaglifozin 10 mg DAILY PO 02/07/25 10:00 02/19/25 09:07 10 MG Lisinopril 10 mg DAILY PO 02/08/25 10:00 02/19/25 09:07 10 MG Diagnostic Test (Pha) 1 strip Q6HR 02/08/25 18:00 02/19/25 17:54 1 STRIP Insulin Human Lispro Q6HR SC 02/08/25 18:00 02/19/25 11:38 2 UNITS Allopurinol 100 mg DAILY PO 02/11/25 10:00 02/19/25 09:07 100 MG Vancomycin HCl 0 ml @ 0 mls/hr UD IV 02/11/25 11:45 Cancel Vancomycin HCl 100 ml @ 100 mls/hr Q8H IV 02/13/25 23:00 Cancel Colchicine 0.6 mg DAILY PO 02/15/25 10:00 02/19/25 09:08 0.6 MG Acetaminophen/ Hydrocodone Bitart 1 tab Q6HP PRN PO 02/15/25 15:00 02/19/25 16:58 1 TAB Vancomycin HCl 250 ml @ 250 mls/hr Q1H IV 02/16/25 08:15 02/16/25 10:14 UNV Ceftriaxone Sodium/Dextrose 50 ml @ 50 mls/hr DAILY IV 02/16/25 20:07 02/19/25 11:33 50 MLS/HR Metronidazole 500 mg Q8HR PO 02/16/25 22:00 02/19/25 21:55 500 MG Albuterol 2.5 mg Q4HPRN PRN NEB 02/19/25 06:00 Ipratropium [place] 0.5 mg Q4HP PRN NEB 02/19/25 06:00 objective Gen.: Patient lying in bed in no apparent distress. Breathing on room air. Head: Normocephalic, atraumatic. Eyes: EOMI/PERRLA. Ears: Normal hearing. Normal anatomy. Neck/trachea: Trachea midline, supple. Nose: Normal external anatomy. Mouth: Moist mucous membranes. Chest: Decreased air entry bilaterally. No wheezing or rhonchi. Cardiovascular: Positive S1, positive S2. Regular rate and rhythm. Abdomen: Positive bowel sounds in all 4 quadrants. Soft, non-tender, non- distended. : Deferred. Rectal: Deferred. Skin: Warm, dry. Intact. Right under 2nd, 3rd, 4th and 5th fingers s/p amputation at the level of PIP joint. Extremities: 2+ radial pulses bilaterally. No lower extremity edema. Neuro: Awake, alert, oriented x3. No gross motor or sensory deficits. Cranial nerves II through XII intact. Gait not assessed. laboratory and microbiology Laboratory Tests 02/17/25 04:48 02/16/25 05:43 Test 02/16/25 05:43 Range/Units Serum Glucose 138 H 74-106 mg/dL Assessment/Plan Impression: Acute hypoxic respiratory failure Sepsis Hx of alcohol abuse ESRD, on hemodialysis Obesity Events: Patient remains on room air Supplemental oxygen PRN. Continue antibiotics Monitor WBC Blood cultures grew Staph epidermidis Repeat blood cultures showing no growth Bronchodilators PRN Continue abx S/p digit amputation by Vascular Surgery Vascular Surgery recommendations appreciated. Continue wound care. Hemodialysis per Nephrology Monitor renal function Monitor electrolytes. Supplement as necessary. Monitor ins and outs. Continue physical therapy. Pain control Avoid oversedation Continue oral feeds. Disposition per hospitalist. Awaiting SNF placement. S/p therapeutic bronchoscopy with RML BAL (01/23); cleared mucous plugging from L6-L10 and R1-R10. Sent for bacterial, fungal and viral cultures - follow up results. Limited chest ultrasound on 01/23 revealed compressive atelectasis. Consolidated lung. No pleural effusion noted. Please see separate procedure notes for details Labs and imaging reviewed. Rest of plan as noted below. Plan: S/p extubation on 02/05/25. Supplemental oxygen PRN Titrate to keep sats above 92% Antibiotics. F/u cultures Bronchodilators PRN S/p right radial thrombectomy by Vascular Surgery S/p digit amputation by Vascular Surgery. Wound care Pain control Avoid oversedation Monitor hemoglobin Accu-Cheks, ISS PRN. HD per Nephrology Monitor renal function Monitor electrolytes. Supplement as necessary. Monitor ins and outs. Maintain euvolemia Diet and lifestyle modifications for weight reduction Obesity - complicates all care GI/DVT prophylaxis. Prognosis: Poor given patient's multiple co-morbidities. Rest of plan per hospitalist and other consultants. Thank you Dr. Dai for allowing me to participate in this patient's care. Further recommendations will depend on the patient's clinical course. Please do not hesitate to contact me if you have any questions or concerns. This medical document was created using an electronic medical record system with [employer] system. Although these documentations are being carefully reviewed, there may still be some phonetic and typographical changes. The errors are purely typographical, due to imperfection on the software program, and do not reflect any compromise in the patient's medical care. Dietary Evaluation Review Comments: 1) Initiate Nephro-Haritha @ 1 tb qd 2) If patient remains NPO > 7 days, consider EN/TPN to meet at least 75% of estimated daily needs 3) If GI route is preferred, consider Nepro CarbSteady @ 30 mL/hr goal rate as tolerated. EN regimen will provide 1296 kcals. 58g Pro, and 523 mL free H2O per 24 hrs. Goal rate will meet ~ 92% estimated daily energy needs and ~ 43% estimated daily protein needs. 4) Advance to 60g CCHO renal diet when medically feasible, pending ST approal 5) Refer to outpatient RD/CDCES for weight management 6) Follow-up with cardiology, pulmonology, nephrology, gastroenterology, and hepatology 7) Follow-up with social research assistant r/t polysubstance abuse 8) Continue to monitor I&O, labs, and skin integrity Expected Outcomes/Goals: 1) patient to receive nutrition support within 7 days of NPO status 2) labs and GI symptoms to improve 3) diet to advance 4) f/u in 2-3 days Plan discussed with: Patient, Other (DENISSE Haider) TIM GE MD Feb 20, 2025 00:03
[2025-02-20 01:00] VITALS: BP 116/84; PULSE 79; RESP 20; TEMP 98.4; O2SAT 96
[2025-02-20 05:00] VITALS: BP 126/92; PULSE 75; RESP 18; TEMP 98.1; O2SAT 99
[2025-02-20 08:05] VITALS: PULSE 76
[2025-02-20 09:00] VITALS: BP 140/92; PULSE 79; RESP 17; TEMP 97.9; O2SAT 98
[2025-02-20 09:10] VITALS: O2SAT 97
[2025-02-20 09:25] LABS: Hematocrit 28.0 % (41.0-53.0); Hemoglobin 9.4 g/dL (13.5-17.5); Mean Corpuscular Hemoglobin 28.4 pg (28.0-32.0); Mean Corpuscular Volume 84.5 fL (80.0-100.0)
[2025-02-20 09:33] LABS: Anion Gap 11 (5-15); Carbon Dioxide 21 mmol/L (20-31); Chloride 106 mmol/L (98-107); Potassium 3.7 mmol/L (3.5-5.1); Sodium 138 mmol/L (136-145)
[2025-02-20 09:39] LABS: BUN/Creatinine Ratio 20.9 (10.0-20.0); Blood Urea Nitrogen 18 mg/dL (9-23); Calcium 8.5 mg/dL (8.7-10.4); Glucose 133 mg/dL (74-106)
[2025-02-20 09:40] LABS: Magnesium 2.0 mg/dL (1.6-2.6)
[2025-02-20 10:50] LABS: Total Cells Counted 100.0 (100)
--- NOTE | 2025-02-20 13:54 | DVHDS2 ---
Discharge Summary Date of Admission Jan 18, 2025 at 10:29 Date of Discharge: Feb 20, 2025 Labs/Diagnostic Data: Laboratory Results Test 02/20/25 08:43 02/20/25 05:52 02/16/25 05:43 02/15/25 05:58 White Blood Count 11.8 10^3/uL (4.4-10.8) Red Blood Count 3.32 10^6/uL (4.5-5.90) Hemoglobin 9.4 g/dL (13.5-17.5) Hematocrit 28.0 % (41.0-53.0) Mean Corpuscular Volume 84.5 fL (80.0-100.0) Mean Corpuscular Hemoglobin 28.4 pg (28.0-32.0) Mean Corpuscular Hemoglobin Concent 33.6 g/dL (32.0-36.0) Red Cell Distribution Width 16.8 % (11.8-14.3) Platelet Count 268 10^3/uL (140-450) Mean Platelet Volume 7.8 fL (6.9-10.8) Neutrophils (%) (Auto) % (37.0-80.0) Lymphocytes (%) (Auto) % (10.0-50.0) Monocytes (%) (Auto) % (0.0-12.0) Basophils (%) (Auto) % (0.0-2.0) Neutrophils # (Auto) 10 ^3/uL (1.6-8.6) Lymphocytes # (Auto) 10 ^3/uL (0.4-5.4) Monocytes # (Auto) 10 ^3/uL (0-1.3) Differential Total Cells Counted 100.0 (100) Neutrophils % (Manual) 73 (37.0-80.0) Band Neutrophils % (Manual) 0 Lymphocytes % (Manual) 27 (10.0-50.0) Monocytes % (Manual) 0 (0-12) Eosinophils % (Manual) 0 (0-7) Basophils % (Manual) 0 (0.0-2.0) Metamyelocytes % (manual) 0 Myelocytes % (Manual) 0 Promyelocytes % (Manual) 0 Blast Cells % (Manual) 0 Reactive Lymphocytes 0 Platelet Estimate Adequate Sodium Level 138 mmol/L (136-145) Potassium Level 3.7 mmol/L (3.5-5.1) Chloride Level 106 mmol/L (98-107) Carbon Dioxide Level 21 mmol/L (20-31) Anion Gap 11 (5-15) Blood Urea Nitrogen 18 mg/dL (9-23) Creatinine 0.86 mg/dL (0.700-1.30) Glomerular Filtration Rate Calc 99 mL/min (>90) BUN/Creatinine Ratio 20.9 (10.0-20.0) Serum Glucose 133 mg/dL (74-106) Calcium Level 8.5 mg/dL (8.7-10.4) Phosphorus Level 4.0 mg/dL (2.4-5.1) Magnesium Level 2.0 mg/dL (1.6-2.6) POC Glucose 108 mg/dl (70-106) Eosinophils (%) (Auto) 0.0 % (0.0-7.0) Eosinophils # (Auto) 0 10 ^3/uL (0-0.8) Basophils # (Auto) 0 10 ^3/uL (0-0.2) Nucleated Red Blood Cells 0.1 % Total Bilirubin 0.7 mg/dL (0.2-1.0) Aspartate Amino Transferase (AST) 21 U/L (13-40) Alanine Aminotransferase (ALT) 26 U/L (7-40) Alkaline Phosphatase 136 U/L (46-116) Total Protein 5.6 g/dL (5.7-8.2) Albumin 3.1 g/dL (3.2-4.8) Anisocytosis (manual) Slight Prothrombin Time 12.8 sec (9.3-11.8) Prothrombin Time INR 1.23 (0.9-1.15) Test 02/14/25 04:44 02/13/25 04:57 02/10/25 23:50 02/10/25 19:00 Large Platelets Few Giant Platelets Few Random Vancomycin Level 13.8 ug/mL (5-10) Stool Occult Blood Negative (Negative) Stool Occult Blood Sample #3 (Negative) Urine Color Light-yellow (Yellow) Urine Clarity Clear (Clear) Urine pH 6.0 (5.0-9.0) Urine Specific [place] 1.019 (1.001-1.035) Urine Protein Negative (Negative) Urine Ketones Negative (Negative) Urine Blood 2+ /uL (Negative) Urine Nitrite Negative (Negative) Urine Bilirubin Negative (Negative) Urine Urobilinogen Normal mg/dL (Negative) Urine Leukocyte Esterase Negative /uL (Negative) Urine RBC 16 /hpf (0 - 3) Urine Microscopic WBC 2 /HPF (0-3) Urine Squamous Epithelial Cells None seen /hpf (<5) Urine Bacteria Few /hpf (None Seen) Urine Sperm Present /hpf (None Seen) Urine Glucose 4+ mg/dL (Normal) Test 02/10/25 11:20 02/09/25 03:50 02/06/25 03:15 02/05/25 11:05 Blood Gas Specimen Type Venous Blood Gas Sample Site Vbg - n/a Blood Gas Patient Temperature 37.0 Arterial Blood Date Drawn [id number] Eligio Test N/a Venous Blood pH 7.397 (7.320-7.430) Venous Blood pCO2 at Patient Temp 30.5 mmHg (38.0-54.0) Venous Blood pO2 at Patient Temp < 36.5 mmHg (23.0-48.0) Venous Blood HCO3 18.3 mmol/L (22.0-29.0) Venous Blood Base Excess -5.2 mmol/L (-2.0-3.0) Blood Gas Modality Room air FiO2 % 21.0 Ammonia 12 umol/L (11-32) Anti-Nuclear Antibody Screen Negative (Negative) Uric Acid 12.8 mg/dL (3.7-9.2) Arterial Blood pH 7.483 (7.350-7.450) Arterial Blood Partial Pressure CO2 29.9 mmHg (35.0-48.0) Arterial Blood Partial Pressure O2 99.2 mmHg (83.0-108.0) Arterial Blood HCO3 21.9 mmol/L (21.0-28.0) Arterial Blood Oxygen Saturation 96.9 % (94.0-98.0) Arterial Blood Base Excess -0.7 mmol/L (-2.0-3.0) Arterial Blood Oxyhemoglobin 96.3 % (94.0-98.0) Arterial Blood Carboxyhemoglobin 0.3 % (0.5-1.5) Arterial Blood Methemoglobin 0.3 % (0.0-1.5) Blood Gas Total Hemoglobin 12.10 g/dL (13.5-17.5) Blood Gas Pressure Support 7 Blood Gas PEEP or CPAP 5.0 Test 02/05/25 07:24 02/05/25 03:38 02/02/25 18:26 01/31/25 03:01 Blood Gas Set Respiration Rate 20.0 Blood Gas Tidal Volume 500.0 Activated Partial Thromboplast Time 40.2 SEC (24.5-34.5) Blood Gas Spontaneous Rate 27 Blood Gas Spontaneous Tidal Volume 478 Blood Gas Inspiratory Pressure 24.0 Triglycerides Level 667 mg/dL (< 150) Test 01/26/25 11:15 01/24/25 03:13 01/23/25 07:42 01/20/25 06:18 Lactic Acid Level 1.1 mmol/L (0.4-2.0) Stomatocytes Few Specimen Drawn By Juli java development manager Blood Gas Critical Value Read Back Yes Blood Gas Notified Whom Dr. renato fox Blood Gas Notified Time [id number] Blood Gas Notified By Rt alvina simmons Test 01/20/25 03:17 01/19/25 09:53 01/18/25 08:36 01/18/25 05:55 Ferritin 542.8 ng/mL (22-322) Direct Bilirubin 3.7 mg/dL (<0.3) Hepatitis A IgM Antibody Negative Hepatitis A Antibody Total Positive (Negative) Hepatitis B Surface Antigen Negative (Negative) Hepatitis B Surface Antibody Negative (Negative) Hepatitis B Core Total Antibody Negative (Negative) Hepatitis B Core IgM Antibody Negative (Negative) Hepatitis C Antibody Negative (Negative) HIV (1&2) Antibody Negative (Negative) Blood Gas Liter Flow 12.00 Troponin I High Sensitivity 30 ng/L (</=54) Hemoglobin A1c 6.5 % A1C (<5.7) B-Type Natriuretic Peptide 457.18 pg/mL (0-100) Thyroid Stimulating Hormone (TSH) 1.78 uIU/mL (0.55-4.78) Free Thyroxine (T4) Calculated 1.17 ng/dL (0.89-1.76) Free Triiodothyronine (T3) pg/mL 2.53 pg/mL (2.3-4.2) Other Laboratory Tests 02/20/25 08:43 Brief Hx & Hospital Course: 60 yo M with gout admitted for back pain. This morning patient found to have elevated HR to 180s rapid response was called, patient was altered and BP was low. initial attempt done to give adenosine with no reduction in HR, patient received sync cardioversion with reversion to sinus tach that was only sustained for 1 minute which reverted back to SVT and started on amio drip. BP improved and patient was somewhat alert, given adenosine 12mg to attempt to re revert, which sustained less than a minute and now patient is in Afib with RVR. Patient was transferred to ICU, sustaining RVR, and more altered, decision made to intubate. Patient also has oral and nasal bleeding. After intubation patient persist to have low BP, started on peripheral pressor and placed TLC and a line. Discussion with renal initially patient was planned for possible dialysis if no improvement with IV diuretics. Patient however exhibit hypovolemic shock on POCUS and with the oral and nasal bleeding, possible alcohol use and cirrhosis, was started on rapid transfusion. Later he grows GNR in the blood. Empiric coverage with IV abx started. Hb remain stable, patient was then continued on abx with fever, consulted ID, abx managed, negative culture after. patient also ahve R finger tip ischemia, removed a line, seen by vascular, intimal flap found and was repaired, then ischemic part waited until it demarcated, and later amputated, sparing the thumb and below PIP. patient later grew bacteria in blood, now negative, covered with ceft. extubated, doing well, stable to dc for snif for rehab and c/w Iv abx 2 weeks. found to have new DVT but already on fill AC Condition at Discharge: Stable Final Diagnosis/Problems List acute metabolic / toxic encephalopathy acute hypoxic RF req mechanical ventilation septic vs hemorrhagic shock vs cardiogenic? possible acute on chronic diastolic HF possible cirrhosis acquired coagulopathy JOSE ATN on CKD? salmonela bacteremia severe thrombocytopenia with active bleeding SVT now new onset afib with RVR possible alcohol withdrawal alcohol use gout flare new R fem DVT on AC s/p DIP amputation Discharge Disposition: [facility] Facility Discharge Instruct/Medications Diet: Cardiac 2g Na,low cholest Activity: No Restrictions, As Tolerated Follow Up/Referral: Follow up with the PCP within 1 week after discharge For allowing with discharge Clinic within 2 weeks after discharge Medications: Per Transfer papers Miscellaneous Medications Allopurinol (Allopurinol), (Reported) Hydrocodone-Acetaminophen (Vicodin), (Reported) Discharge Statement: "Patient was advised to return to the ER or call 911 if any headaches, dizziness, shortness of breath, chest pain, abdominal pain, bleeding, fevers, or worsening of medical condition. Patient was counseled about treatment plan, medications, possible side effects, patientverbalized understanding. All questions were answered to the best of my ability. This discharge took greater then 30 minutes in planning, reviewing documentation, counseling the patient, and discussing with other team members." ASSESSMENT ASSESSMENT Assessment Sepsis, due Pseudomonas Date of Service: Feb 20, 2025 Billing Provider: PINA FOX MD Common Visit Codes: 73992-QJJ/OBS DISCH DAY >30min PINA FOX MD Feb 20, 2025 13:54
--- NOTE | 2025-02-20 21:54 | DVHPN2 ---
Progress Note - Dictate Date Seen: Feb 20, 2025 (Time of Note: 1410 hours) Has the PT tested + for MRSA If YES, has PT been informed?: No Medical Necessity Reason Pt with a Central, PICC or Fol: Yes The following are medically ne: Young Catheter Reason for young catheter: Strict I&O Subjective [facility] Patient seen and examined at bedside. Breathing comfortably on room air. Overnight events reviewed. vital signs Vital Sign Date Time Temp Pulse Resp B/P (MAP) Pulse Ox O2 Delivery O2 Flow Rate FiO2 02/20/25 10:29 77 120/78 02/20/25 09:10 97 Room Air* 0 21 02/20/25 09:00 97.9 17 97.9 Total Intake and Output 02/19/25 02/19/25 02/20/25 14:59 22:59 06:59 Intake Total 218.2 ml 180 ml Balance 218.2 ml 180 ml medications Current Medications Medications Dose Ordered Sig/Natividad Route Start Time Stop Time Status Last Admin Dose Admin Vancomycin HCl 0 ml @ 0 mls/hr UD IV 02/11/25 11:45 Cancel Vancomycin HCl 100 ml @ 100 mls/hr Q8H IV 02/13/25 23:00 Cancel Vancomycin HCl 250 ml @ 250 mls/hr Q1H IV 02/16/25 08:15 02/16/25 10:14 UNV objective Gen.: Patient lying in bed in no apparent distress. Breathing on room air. Head: Normocephalic, atraumatic. Eyes: EOMI/PERRLA. Ears: Normal hearing. Normal anatomy. Neck/trachea: Trachea midline, supple. Nose: Normal external anatomy. Mouth: Moist mucous membranes. Chest: Decreased air entry bilaterally. No wheezing or rhonchi. Cardiovascular: Positive S1, positive S2. Regular rate and rhythm. Abdomen: Positive bowel sounds in all 4 quadrants. Soft, non-tender, non- distended. : Deferred. Rectal: Deferred. Skin: Warm, dry. Intact. Right under 2nd, 3rd, 4th and 5th fingers s/p amputation at the level of PIP joint. Extremities: 2+ radial pulses bilaterally. No lower extremity edema. Neuro: Awake, alert, oriented x3. No gross motor or sensory deficits. Cranial nerves II through XII intact. Gait not assessed. laboratory and microbiology Laboratory Tests 02/20/25 08:43 Test 02/20/25 08:43 Range/Units Serum Glucose 133 H 74-106 mg/dL Assessment/Plan Impression: Acute hypoxic respiratory failure Sepsis Hx of alcohol abuse ESRD, on hemodialysis Obesity Events: Patient remains on room air Supplemental oxygen PRN. No overnight events. Incentive spirometry Continue antibiotics Monitor WBC Blood cultures grew Staph epidermidis Repeat blood cultures showing no growth Bronchodilators PRN Hemodialysis per Nephrology Monitor renal function Monitor electrolytes. Supplement as necessary. Continue physical therapy. Wound care. Pain control Avoid oversedation Continue oral feeds. Disposition per hospitalist. Awaiting SNF placement. S/p therapeutic bronchoscopy with RML BAL (01/23); cleared mucous plugging from L6-L10 and R1-R10. Sent for bacterial, fungal and viral cultures - follow up results. Limited chest ultrasound on 01/23 revealed compressive atelectasis. Consolidated lung. No pleural effusion noted. Please see separate procedure notes for details Labs and imaging reviewed. Rest of plan as noted below. Plan: S/p extubation on 02/05/25. Supplemental oxygen PRN Titrate to keep sats above 92% Antibiotics. F/u cultures Bronchodilators PRN S/p right radial thrombectomy by Vascular Surgery S/p digit amputation by Vascular Surgery Vascular Surgery recommendations appreciated. Wound care Pain control Avoid oversedation Monitor hemoglobin Accu-Cheks, ISS PRN. HD per Nephrology Monitor renal function Monitor electrolytes. Supplement as necessary. Monitor ins and outs. Maintain euvolemia Diet and lifestyle modifications for weight reduction Obesity - complicates all care GI/DVT prophylaxis. Prognosis: Poor given patient's multiple co-morbidities. Rest of plan per hospitalist and other consultants. Thank you Dr. Dai for allowing me to participate in this patient's care. Further recommendations will depend on the patient's clinical course. Please do not hesitate to contact me if you have any questions or concerns. This medical document was created using an electronic medical record system with [employer] dictation system. Although these documentations are being carefully reviewed, there may still be some phonetic and typographical changes. The errors are purely typographical, due to imperfection on the software program, and do not reflect any compromise in the patient's medical care. Dietary Evaluation Review Comments: 1) Initiate Nephro-Haritha @ 1 tb qd 2) If patient remains NPO > 7 days, consider EN/TPN to meet at least 75% of estimated daily needs 3) If GI route is preferred, consider Nepro CarbSteady @ 30 mL/hr goal rate as tolerated. EN regimen will provide 1296 kcals. 58g Pro, and 523 mL free H2O per 24 hrs. Goal rate will meet ~ 92% estimated daily energy needs and ~ 43% estimated daily protein needs. 4) Advance to 60g CCHO renal diet when medically feasible, pending ST approal 5) Refer to outpatient RD/CDCES for weight management 6) Follow-up with cardiology, pulmonology, nephrology, gastroenterology, and hepatology 7) Follow-up with social work manager r/t polysubstance abuse 8) Continue to monitor I&O, labs, and skin integrity Expected Outcomes/Goals: 1) patient to receive nutrition support within 7 days of NPO status 2) labs and GI symptoms to improve 3) diet to advance 4) f/u in 2-3 days Plan discussed with: Patient, Other (DENISSE Ledbetter) TIM GE MD Feb 20, 2025 21:54
== END 2025-02-20 14:13 | DRG 853 ==
LOC: EDBD 04:45 → ER 04:45 → OVERFLOW 10:29 → CENTRAL 12:47 → ICU WEST 01-19 10:16 → TELE-WESTW 02-10 13:28 → WEST WING 02-10 23:48 → TELE-WESTW 02-15 23:08
PROVIDERS: ADMIT Hospitalist; ATTEND Hospitalist
PROC: 30233K1 Transfusion of Nonautologous Frozen Plasma into Peripheral Vein, Percutaneous Approach (ICD-10-PCS; principal; 2025-01-19)
PROC: 30233N1 Transfusion of Nonautologous Red Blood Cells into Peripheral Vein, Percutaneous Approach (ICD-10-PCS; 2025-01-19)
PROC: 30233R1 Transfusion of Nonautologous Platelets into Peripheral Vein, Percutaneous Approach (ICD-10-PCS; 2025-01-19)
PROC: 5A2204Z Restoration of Cardiac Rhythm, Single (ICD-10-PCS; 2025-01-19)
PROC: 0BH17EZ Insertion of Endotracheal Airway into Trachea, Via Natural or Artificial Opening (ICD-10-PCS; 2025-01-19)
PROC: 5A1955Z Respiratory Ventilation, Greater than 96 Consecutive Hours (ICD-10-PCS; 2025-01-19)
PROC: 03HY32Z Insertion of Monitoring Device into Upper Artery, Percutaneous Approach (ICD-10-PCS; 2025-01-19)
PROC: 02HV33Z Insertion of Infusion Device into Superior Vena Cava, Percutaneous Approach (ICD-10-PCS; 2025-01-19)
PROC: 02HV33Z Insertion of Infusion Device into Superior Vena Cava, Percutaneous Approach (ICD-10-PCS; 2025-01-20)
PROC: 5A1D70Z Performance of Urinary Filtration, Intermittent, Less than 6 Hours Per Day (ICD-10-PCS; 2025-01-20)
PROC: 0B9D8ZX Drainage of Right Middle Lung Lobe, Via Natural or Artificial Opening Endoscopic, Diagnostic (ICD-10-PCS; 2025-01-23)
PROC: 0BC78ZZ Extirpation of Matter from Left Main Bronchus, Via Natural or Artificial Opening Endoscopic (ICD-10-PCS; 2025-01-23)
PROC: 5A1D70Z Performance of Urinary Filtration, Intermittent, Less than 6 Hours Per Day (ICD-10-PCS; 2025-01-23)
PROC: 0BC38ZZ Extirpation of Matter from Right Main Bronchus, Via Natural or Artificial Opening Endoscopic (ICD-10-PCS; 2025-01-23)
PROC: 5A1D70Z Performance of Urinary Filtration, Intermittent, Less than 6 Hours Per Day (ICD-10-PCS; 2025-01-24)
PROC: 03CB0ZZ Extirpation of Matter from Right Radial Artery, Open Approach (ICD-10-PCS; 2025-01-25)
PROC: B5181ZA Fluoroscopy of Superior Vena Cava using Low Osmolar Contrast, Guidance (ICD-10-PCS; 2025-01-25)
PROC: 0JH63XZ Insertion of Tunneled Vascular Access Device into Chest Subcutaneous Tissue and Fascia, Percutaneous Approach (ICD-10-PCS; 2025-01-25)
PROC: 02H633Z Insertion of Infusion Device into Right Atrium, Percutaneous Approach (ICD-10-PCS; 2025-01-25)
PROC: B548ZZA Ultrasonography of Superior Vena Cava, Guidance (ICD-10-PCS; 2025-01-25)
PROC: B31H1ZZ Fluoroscopy of Right Upper Extremity Arteries using Low Osmolar Contrast (ICD-10-PCS; 2025-01-25)
PROC: 5A1D70Z Performance of Urinary Filtration, Intermittent, Less than 6 Hours Per Day (ICD-10-PCS; 2025-01-26)
PROC: B24BZZ4 Ultrasonography of Heart with Aorta, Transesophageal (ICD-10-PCS; 2025-01-27)
PROC: 02HV33Z Insertion of Infusion Device into Superior Vena Cava, Percutaneous Approach (ICD-10-PCS; 2025-01-28)
PROC: B548ZZA Ultrasonography of Superior Vena Cava, Guidance (ICD-10-PCS; 2025-01-28)
PROC: 5A1935Z Respiratory Ventilation, Less than 24 Consecutive Hours (ICD-10-PCS; 2025-02-05)
PROC: 0X6N0Z1 Detachment at Right Index Finger, High, Open Approach (ICD-10-PCS; 2025-02-15)
PROC: 0X6S0Z1 Detachment at Right Ring Finger, High, Open Approach (ICD-10-PCS; 2025-02-15)
PROC: 0X6Q0Z1 Detachment at Right Middle Finger, High, Open Approach (ICD-10-PCS; 2025-02-15)
PROC: 0X6V0Z1 Detachment at Right Little Finger, High, Open Approach (ICD-10-PCS; 2025-02-15)
DX: A02.1 Salmonella sepsis (principal); G92.8 Other toxic encephalopathy; N17.0 Acute kidney failure with tubular necrosis; J96.01 Acute respiratory failure with hypoxia; R65.21 Severe sepsis with septic shock; N18.6 End stage renal disease; R57.0 Cardiogenic shock; I21.A1 Myocardial infarction type 2; J69.0 Pneumonitis due to inhalation of food and vomit; R57.1 Hypovolemic shock; I50.33 Acute on chronic diastolic (congestive) heart failure; N39.0 Urinary tract infection, site not specified; F10.239 Alcohol dependence with withdrawal, unspecified; D68.4 Acquired coagulation factor deficiency; I47.10 Supraventricular tachycardia, unspecified; E87.0 Hyperosmolality and hypernatremia; E11.52 Type 2 diabetes mellitus with diabetic peripheral angiopathy with gangrene; E87.4 Mixed disorder of acid-base balance; I13.2 Hypertensive heart and chronic kidney disease with heart failure and with stage 5 chronic kidney disease, or end stage renal disease; I82.411 Acute embolism and thrombosis of right femoral vein; K76.6 Portal hypertension; Z99.11 Dependence on respirator [ventilator] status; I74.2 Embolism and thrombosis of arteries of the upper extremities; E04.1 Nontoxic single thyroid nodule; K59.00 Constipation, unspecified; K70.30 Alcoholic cirrhosis of liver without ascites; E83.51 Hypocalcemia; E87.6 Hypokalemia; E11.22 Type 2 diabetes mellitus with diabetic chronic kidney disease; E11.43 Type 2 diabetes mellitus with diabetic autonomic (poly)neuropathy; E66.01 Morbid (severe) obesity due to excess calories; G89.29 Other chronic pain; I27.20 Pulmonary hypertension, unspecified; I48.91 Unspecified atrial fibrillation; K31.84 Gastroparesis; K40.20 Bilateral inguinal hernia, without obstruction or gangrene, not specified as recurrent; K57.30 Diverticulosis of large intestine without perforation or abscess without bleeding; M10.9 Gout, unspecified; M51.369 Other intervertebral disc degeneration, lumbar region without mention of lumbar back pain or lower extremity pain; R04.0 Epistaxis; D64.9 Anemia, unspecified; E78.1 Pure hyperglyceridemia; E11.65 Type 2 diabetes mellitus with hyperglycemia; D69.59 Other secondary thrombocytopenia; F17.210 Nicotine dependence, cigarettes, uncomplicated; J43.9 Emphysema, unspecified; M48.061 Spinal stenosis, lumbar region without neurogenic claudication; Z68.34 Body mass index [BMI] 34.0-34.9, adult; Z79.899 Other long term (current) drug therapy; Z99.2 Dependence on renal dialysis; Z91.199 Patient's noncompliance with other medical treatment and regimen due to unspecified reason; Z82.49 Family history of ischemic heart disease and other diseases of the circulatory system; Y90.9 Presence of alcohol in blood, level not specified
CPT/HCPCS: 36415; 36569; 36600; 70450; 71045; 71250; 73100; 74176; 74177; 76000; 76536; 76705; 76775; 76937; 80048; 80053; 80074; 80076; 80202; 81001; 82140; 82270; 82565; 82728; 82805; 82962; 83036; 83605; 83735; 83880; 84100; 84132; 84439; 84443; 84478; 84481; 84484; 84550; 85007; 85014; 85018; 85025; 85027; 85610; 85730; 86038; 86703; 86704; 86706; 86708; 86803; 86850; 86900; 86901; 86920; 87040; 87070; 87077; 87081; 87086; 87186; 87205; 87340; 90935; 92610; 93005; 93306; 93312; 93970; 93971; 94002; 94003; 94640; 94667; 94668; 96361; 96374; 97110; 97116; 97163; 97530; 99152; 99291; 99292; C1894; G0378; J0153; J0330; J1100; J1450; J1642; J1815; J1885; J1956; J2003; J2185; J2250; J2405; J2470; J2704; J3480; J3490; J7060; P9047